=== PATIENT | male | born 1980 | race Caucasian/White ===

== ENCOUNTER 2017-01-05 12:39 | Emergency (ER) | payer MEDICAID, SELFPAY ==
[~2017-01-05] VITALS: Ht 170.2 cm; Wt 72.7 kg
[~2017-01-05 12:39] MED LIST: /LANS30GR; ACET65TA; AMLO10TA; MICR10CA PO; No Historical Meds; OXAZ15CA PO; OXAZ15CA2; TAKES NO MEDS
[2017-01-05] MEDS ORDERED: GABA-282 PO (12:53)
[2017-01-05] MEDS ORDERED: FLUO20CA19 PO (12:53)
[2017-01-05] MEDS ORDERED: LORazepam 2 MG TAB PO STA (13:50)
[2017-01-05] MEDS ORDERED: MULTIVITAMIN -ADULT INJECTION 10 ML, THIAMINE INJection 100 MG, FOLIC ACID 1 MG in NS 1... IV ONE (14:00)
[2017-01-05] MEDS ORDERED: ACETAMINOPHEN TAB 650MG DOSE (2X325MG) PO ONE (14:00)
[2017-01-05 14:02] LABS: BASO % 0.4 % (0.0-1.0); EOS # 0.1 K/mm3 (0.0-0.50); EOS % 1.7 % (0.0-3.0); LARGE UNSTAINED CELL # 0.1 K/mm3 (0.0-0.4); LARGE UNSTAINED CELL % 0.9 % (0.0-4.0); LYMPH # 0.4 K/mm3 (1.5-4.5); LYMPH % 6.1 % (24.0-44.0); MEAN CORPUSCULAR HEMOGLOBIN 30.7 pg (27.0-33.0); MEAN CORPUSCULAR HGB CONC 34.9 g/dl (32.0-36.5); MEAN CORPUSCULAR VOLUME 88.1 fl (80.0-96.0); MONO # 0.4 K/mm3 (0.0-0.8); MONO % 6.1 % (0.0-5.0); NEUTROPHILS % 84.9 % (36.0-66.0); PLATELET COUNT, AUTOMATED 122 k/mm3 (150-450); RED CELL DISTRIBUTION WIDTH 13.4 % (11.5-14.5); WHITE BLOOD COUNT 5.9 K/mm3 (4.0-10.0)
[2017-01-05 14:22] LABS: ALBUMIN/GLOBULIN RATIO 0.89 (1.00-1.93); ALKALINE PHOSPHATASE 119 U/L (45-117); ALT/SGPT 146 U/L (12-78); ANION GAP 10 MEQ/L (8-16); AST/SGOT 172 U/L (15-37); BILIRUBIN,DIRECT 0.3 MG/DL (0.0-0.2); BILIRUBIN,TOTAL 1.4 MG/DL (0.2-1.0); BLOOD UREA NITROGEN 7 MG/DL (7-18); CALCIUM LEVEL 9.4 MG/DL (8.5-10.1); CARBON DIOXIDE LEVEL 25 MEQ/L (21-32); CHLORIDE LEVEL 100 MEQ/L (98-107); CREATININE FOR GFR 0.82 MG/DL (0.70-1.30); GLOMERULAR FILTRATION RATE > 60.0 (>60); GLUCOSE, FASTING 137 MG/DL (70-105); POTASSIUM SERUM 3.4 MEQ/L (3.5-5.1); SODIUM LEVEL 135 MEQ/L (136-145); TOTAL PROTEIN 8.5 GM/DL (6.4-8.2)
[2017-01-05 14:26] LABS: METHADONE URINE NEGATIVE (NEGATIVE)
[2017-01-05] MEDS ORDERED: NS 1,000 ML IV ONE (14:45)
[2017-01-05] MEDS ORDERED: GABAPENTIN 300 MG CAP PO ONE (16:00)
[2017-01-05 18:55] VITALS: BP 171/79
== END 2017-01-05 18:56 | disposition home or self-care (01) ==
LOC: EDBD 12:39 → M ED 12:39
DX: R56.9 Unspecified convulsions (principal); F10.10 Alcohol abuse, uncomplicated; F32.9 Major depressive disorder, single episode, unspecified; F17.210 Nicotine dependence, cigarettes, uncomplicated; Z88.0 Allergy status to penicillin; Z88.1 Allergy status to other antibiotic agents
CPT/HCPCS: 36415; 80048; 80076; 80171; 80307; 81001; 83605; 85025; 99285; G0480; J3411

== ENCOUNTER 2017-01-23 12:59 | Emergency (ER) | payer SELFPAY ==
[~2017-01-23] VITALS: Ht 170.2 cm; Wt 79.5 kg
[2017-01-23 12:59] VITALS: BP 166/109
[~2017-01-23 12:59] MED LIST changes: +FLUO20CA19 PO; +GABA-282 PO
== END 2017-01-23 16:03 | disposition left against medical advice (07) ==
LOC: M ED 12:59
DX: Z76.89 Persons encountering health services in other specified circumstances (principal); Z53.21 Procedure and treatment not carried out due to patient leaving prior to being seen by health care provider

== ENCOUNTER 2017-02-03 22:27 | Inpatient (IN) | payer MEDICAID, SELFPAY ==
[~2017-02-03] VITALS: Ht 170.2 cm; Wt 81.8 kg
[2017-02-03] MEDS ORDERED: LISI10TA4 PO (22:35)
[2017-02-03] MEDS ORDERED: OXAZEPAM 15 MG CAP PO ONE (23:00)
[2017-02-03] MEDS ORDERED: LORazepam 2 MG/ML VIAL (J2060) IV STA (23:00)
[2017-02-03 23:29] LABS: BASO % 0.2 % (0.0-1.0); EOS # 0.2 K/mm3 (0.0-0.50); EOS % 2.4 % (0.0-3.0); LARGE UNSTAINED CELL # 0.1 K/mm3 (0.0-0.4); LARGE UNSTAINED CELL % 1.6 % (0.0-4.0); LYMPH # 0.6 K/mm3 (1.5-4.5); LYMPH % 8.8 % (24.0-44.0); MEAN CORPUSCULAR HGB CONC 36.3 g/dl (32.0-36.5); MEAN CORPUSCULAR VOLUME 85.6 fl (80.0-96.0); MONO # 0.8 K/mm3 (0.0-0.8); MONO % 11.5 % (0.0-5.0); NEUTROPHILS # 5.4 K/mm3 (1.8-7.7); NEUTROPHILS % 75.6 % (36.0-66.0); RED CELL DISTRIBUTION WIDTH 12.8 % (11.5-14.5); WHITE BLOOD COUNT 7.2 K/mm3 (4.0-10.0)
[2017-02-03] MEDS ORDERED: NS 1,000 ML IV SCH (23:44)
[2017-02-03] MEDS ORDERED: ONDANSETRON 4MG/2ML VIAL (J2405) IV PRN (23:45)
[2017-02-03 23:49] LABS: ADD MORPHOLOGY? YES; PLATELET COUNT, AUTOMATED 94 k/mm3 (150-450)
[2017-02-03 23:50] LABS: PLATELET CLUMPS SMALL AMT
[2017-02-03] MEDS ORDERED: THIAMINE INJection 100 MG, FOLIC ACID 1 MG, MULTIVITAMIN -ADULT INJECTION 10 ML in NS 1... IV ONE (23:53)
[2017-02-03 23:57] LABS: ALBUMIN 4.1 GM/DL (3.2-5.2); ALKALINE PHOSPHATASE 124 U/L (45-117); ALT/SGPT 153 U/L (12-78); ANION GAP 12 MEQ/L (8-16); AST/SGOT 164 U/L (15-37); BILIRUBIN,DIRECT 0.4 MG/DL (0.0-0.2); BLOOD UREA NITROGEN 13 MG/DL (7-18); CALCIUM LEVEL 9.5 MG/DL (8.5-10.1); CARBON DIOXIDE LEVEL 27 MEQ/L (21-32); CHLORIDE LEVEL 92 MEQ/L (98-107); CREATININE FOR GFR 0.73 MG/DL (0.70-1.30); GLOMERULAR FILTRATION RATE > 60.0 (>60); GLUCOSE, FASTING 118 MG/DL (70-105); POTASSIUM SERUM 3.3 MEQ/L (3.5-5.1); SODIUM LEVEL 131 MEQ/L (136-145); TOTAL PROTEIN 8.2 GM/DL (6.4-8.2)
[2017-02-04 00:18] LABS: METHADONE URINE NEGATIVE (NEGATIVE)
[2017-02-04] MEDS: THIAMINE 100 MG TAB PO SCH ×3 (00:53→20:28)
[2017-02-04] MEDS: GABAPENTIN 300 MG CAP PO SCH ×3 (00:53→20:28)
--- NOTE | 2017-02-04 01:50 | REPUSA ---
CLINICAL HISTORY: Abdominal pain. TECHNIQUE: Multiple axial, sagittal and coronal CT images were obtained through the abdomen and pelvi s without administration of oral or IV contrast material. COMMENTS: The liver is moderately enlarged with decreased attenuation without mass or defect. There is no intra or extrahepatic biliary ductal dilatation. The spleen is normal. The gallbladder is within normal li mits. The pancreas is of normal contour and attenuation characteristics. There is no evidence of adre nal mass. Bilateral perinephric fat stranding. The kidneys are otherwise normal in size, shape and configuration. No renal or ureteral calculi are i dentified. There is no hydroureter or hydronephrosis. There is no evidence for appendicitis. There is no bowel wall thickening. No evidence for small or la rge bowel obstruction. There is no evidence of abdominal ascites or lymphadenopathy. There is no evidence of intrinsic or extrinsic bladder mass. There is no pelvic ascites or lymphadeno cheri. Mild apparent thickening of the cecum and ascending colon. Images of the lung bases show no evidence of pleural or parenchymal mass. There are no pleural effusi ons. The bony structures are free of lytic or blastic lesions. Multilevel degenerative changes are seen in volving the thoracolumbar spine. Scattered calcifications are seen involving the aorta and major branches compatible with atherosclero sis. IMPRESSION: Hepatomegaly with fatty infiltration. Bilateral perinephric fat stranding. This can be secondary to abnormal renal function versus an ascen ding urinary tract infection. Correlation with creatinine level and urinalysis is helpful if needed. Mild apparent thickening of the cecum and ascending colon. Underdistention, spasm versus mild colitis . Normal appendix. Mild prostatomegaly. Mild diffuse thickening of the wall of the bladder. Underdistention, spasm, mild cystitis versus hat lining blocker reyes changes of bladder outlet obstruction. Thank you for your kind referral of this patient.
[2017-02-04] MEDS ORDERED: POTASSIUM CHLORIDE 10 MEQ SR TABLET PO ONE (05:30)
[2017-02-04] MEDS: OXAZEPAM 10 MG CAP PO SCH ×2 (06:05→11:59)
[2017-02-04] MEDS ORDERED: INFLUENZA QUADRIVALENT PF VACCINE 0.5ML SYRINGE (90686) IM SCH (07:15)
[2017-02-04 07:23] LABS: MEAN CORPUSCULAR HEMOGLOBIN 31.1 pg (27.0-33.0); MEAN CORPUSCULAR HGB CONC 35.4 g/dl (32.0-36.5); MEAN CORPUSCULAR VOLUME 87.9 fl (80.0-96.0); WHITE BLOOD COUNT 5.6 K/mm3 (4.0-10.0)
[2017-02-04] MEDS: LORazepam 2 MG/ML VIAL (J2060) IV PRN ×3 (07:36→20:28)
[2017-02-04 07:39] LABS: ALBUMIN 3.7 GM/DL (3.2-5.2); ALBUMIN/GLOBULIN RATIO 0.88 (1.00-1.93); ALKALINE PHOSPHATASE 105 U/L (45-117); ALT/SGPT 161 U/L (12-78); ANION GAP 11 MEQ/L (8-16); AST/SGOT 167 U/L (15-37); BILIRUBIN,TOTAL 1.1 MG/DL (0.2-1.0); BLOOD UREA NITROGEN 13 MG/DL (7-18); CALCIUM LEVEL 8.7 MG/DL (8.5-10.1); CARBON DIOXIDE LEVEL 27 MEQ/L (21-32); CHLORIDE LEVEL 94 MEQ/L (98-107); CREATININE FOR GFR 0.54 MG/DL (0.70-1.30); GLOMERULAR FILTRATION RATE > 60.0 (>60); GLUCOSE, FASTING 97 MG/DL (70-105); MAGNESIUM LEVEL 2.4 MG/DL (1.8-2.4); SODIUM LEVEL 132 MEQ/L (136-145); TOTAL PROTEIN 7.9 GM/DL (6.4-8.2)
[2017-02-04] MEDS: FLUoxetine 20 MG CAP PO SCH (09:38)
[2017-02-04] MEDS: MULTIVITAMINS/MINERALS THERAP 1 TAB PO SCH (09:38)
[2017-02-04] MEDS: FOLIC ACID 1 MG TAB PO SCH (09:38)
[2017-02-04] MEDS: ENOXAPARIN 40 MG/0.4 ML SYRINGE (J1650) SC SCH ×2 (09:40→09:45)
[2017-02-04 09:58] VITALS: BP 124/84
[2017-02-04 12:04] VITALS: BP 100/61
--- NOTE | 2017-02-04 14:15 | HPE ---
DATE OF ADMISSION: 02/03/2017 PRIMARY CARE PROVIDER: Dr. Munguia. Has not been seen for the first visit yet. HISTORY OF PRESENT ILLNESS: The patient is a 36-year-old male with significant alcohol abuse history with recurrent alcohol withdrawal seizures, depression, presented to [facility] on 02/03/2017 for persistent worsening of withdrawal symptoms. Patient stated at 9 o'clock in the evening time, patient felt he had a seizure. Patient started having visual hallucinations and uncontrolled extremity shaking and profuse sweating with palpitations. Denies any loss of bowel or bladder control. Denies any thumb biting. Denies any fever or chills. Patient stated his last drink was approximately three days ago. Patient has being incessantly since 18 years old, which is almost 20 years. Patient has been drinking daily for the past two weeks. At the most, patient will drink a 30 beers in a day. The patient has been having alcohol withdrawal seizure at least four to five times in the last five years. The last episode occurred in December,. At the time, patient came to [facility] emergency room, got one dose of intravenous (IV) Ativan, was discharged home. At the time, patient was shaking, sweating and a headache. ALLERGIES: 1. PENICILLIN (throat closing). 2. AUGMENTIN. 3. AZITHROMYCIN. PAST MEDICAL HISTORY: Hypertension. PAST SURGICAL HISTORY: None. HOME MEDICATIONS: - gabapentin 300 mg by mouth twice a day - fluoxetine 20 mg by mouth daily - lisinopril 10 mg by mouth daily SOCIAL HISTORY: Patient started excessive drinking since 18 years old. Recently, patient has been drinking daily and the most patient will drink is 30 beers in a single day. Patient smokes one-half pack daily. Denied recreational drug use. Patient has a history of being in skilled nursing recently for one year, just recently discharged from skilled nursing 12/08/2016, for criminal behavior. REVIEW OF SYSTEMS: GENERAL: Complains of perfuse sweating. No fever. No chills. HEENT: Complains of visual hallucinations and also headaches. CARDIOVASCULAR: Experiencing significant palpitations. No chest pain. RESPIRATORY: Intermittent cough. Some sputum production. GASTROINTESTINAL (GI): Patient had an episode of vomiting before arriving to the emergency room. No other complaints. No specific abdominal pain. MUSCULOSKELETAL: Denies any joint pain or muscle pain. NEUROLOGICAL: Denies any numbness or tingling. PHYSICAL EXAMINATION: GENERAL: Anxious, agitated, not in distress. Alert and oriented times three. HEET: Normocephalic, atraumatic. Extraocular motor grossly intact. CARDIOVASCULAR: Tachycardic with a heart rate between 110-130. RESPIRATORY: Clear to auscultation bilaterally. ABDOMEN: Mildly tender to palpation in the mid abdomen. Bowel sounds present. No rebound. EXTREMITIES: No edema. No cyanosis. NEUROLOGICAL: Uncontrolled extremity shaking, mainly on the right upper extremity. Sensation to fine touch grossly intact. Muscle strength 5/5. LABORATORY DATA: WBC 7.2. Hbg 17.4. Hct 48. Platelet 94. Na 131. K 3.3. Cl 92. CO2 27. BUN 13. Cr. 0.73. GFR>60. Total Bili 1. Direct Bili 0.4. AST 164. ALT 153. Alk Phos 124 ASSESSMENT AND PLAN: 1. Delirium tremens from alcohol withdrawal. Patient will be admitted to the intensive care unit (ICU) under inpatient status. Patient has a persistent tachycardia with elevated blood pressures. Patient has a history of delirium tremens in the past. Patient will be on Clinical Gilbert Withdrawal Assessment (CIWA) protocol. Patient started on low-acting Serax and supplemented with IV Ativan as needed. Currently, patient has mild diaphoresis, hypertension, tachycardia, agitation and also visual hallucinations. Patient will be started on a banana bag running at 80 mL per hour. Patient will be on seizure precautions. 2. Hypertension. Continue lisinopril. Patient is currently hypertensive due to delirium tremens (DTs). Patient has benzodiazepine started. 3. Depression. Continue Prozac. 4. Deep venous thrombosis (DVT) prophylaxis. On Lovenox. MTDD
[2017-02-04] MEDS: POTASSIUM CHLORIDE 10 MEQ SR TABLET PO SCH ×2 (14:46→20:36)
--- NOTE | 2017-02-04 14:48 | IPNPDOC ---
Text Note Date of Service The patient was seen on 02/04/17. NOTE Subjective: Patient is a 36 year old male with a PMHx of HTN, Seizure Hx (likely withdrawal seizures), Depression and Alcohol dependence who presented to the ER [facility] complaints of tremors, nausea, vomiting and RUQ abdominal pain. Patient noted that he had sweating and palpitations as well. He noted a period of time where he had visual hallucinations. Upon arrival to the ER he was found to have an elevated blood pressure and tachycardic. He was admitted for possible delirium tremens. Patient was seen and examined at the bedside. Currently he notes that he feels a little more calm after receiving Ativan IV. He notes that he has had difficulty getting off the benzodiazepines in the past. I have advised him that given his alcohol use history and seizure history that at this point benzodiazepines will benefit him. Objective: Vitals (See below) General: Lying in bed, no acute distress, comfortable, AAOx3 HEENT: NC, AT CVS: Tachycardia, Regular rhythm, +S1S2 Lungs: Fair air entry b/l, no appreciable wheezing / rales / rhonchi Abdomen: Soft, ND, Tenderness at RUQ Extremities: - Edema, - Calf tenderness Assessment and plan: Tremors, Nausea, Palpitations and Sweating - likely 2/2 withdrawal from alcohol , possible Delirium tremens - Presented with recent history of binge alcohol drinking, noted on Sunday was the last use of 18 beers - Physical with tachycardia, hypertension and warm skin - Blood pressure has normalized - Labs reveal mild electrolyte abnormalities, thrombocytopenia, transaminitis - CT abdomen / pelvis 02/03: hepatomegaly with fatty infiltration, bilateral perinephric stranding, mild thickening of cecum / ascending colon, diffuse thickening of wall of bladder - c/w seizure precautions - c/w Serax 30 q6h and Ativan PRN Hypokalemia - will supplement Hyponatremia, mild - will monitor for now Transaminitis - Ratio of 1:1 for AST:ALT - Possibly 2/2 alcohol, however ratio does not match - Hepatitis panel pending Thrombocytopenia - CT abdomen does not reveal any splenomegaly - Will continue to follow Alcohol dependence - c/w Banana bag x 1 bag - c/w Thiamine, Folate and Multivitamins HTN - BP remains moderately controlled - c/w Lisinopril Depression - c/w Fluoxetine Withdrawal seizure history - c/w Gabapentin DVT prophylaxis - c/w Lovenox VS,Fishbone, I+O VS, Fishbone, I+O Laboratory Tests 02/03/17 23:15 Red Blood Count 5.61, Mean Corpuscular Volume 85.6, Mean Corpuscular Hemoglobin 31.0, Mean Corpuscular Hemoglobin Concent 36.3, Red Cell Distribution Width 12.8 , Neutrophils (%) (Auto) 75.6 H, Lymphocytes (%) (Auto) 8.8 L, Monocytes (%) ( Auto) 11.5 H, Eosinophils (%) (Auto) 2.4, Basophils (%) (Auto) 0.2, Neutrophils # (Auto) 5.4, Lymphocytes # (Auto) 0.6 L, Monocytes # (Auto) 0.8, Eosinophils # (Auto) 0.2, Basophils # (Auto) 0.0 02/04/17 06:58 Red Blood Count 5.35, Mean Corpuscular Volume 87.9, Mean Corpuscular Hemoglobin 31.1, Mean Corpuscular Hemoglobin Concent 35.4, Red Cell Distribution Width 13.0 , Calcium Level 8.7, Aspartate Amino Transf (AST/SGOT) 167 H, Alanine Aminotransferase (ALT/SGPT) 161 H, Total Creatine Kinase 191, Alkaline Phosphatase 105, Total Bilirubin 1.1 H, Total Protein 7.9, Albumin 3.7 Vital Signs Date Time Temp Pulse Resp B/P (MAP) Pulse Ox O2 Delivery O2 Flow Rate FiO2 02/04/17 12:04 95 100/61 02/04/17 12:04 97.7 18 97 Room Air EZRA IRVING MD Feb 04, 2017 14:48
[2017-02-04 16:00] VITALS: BP 139/93
[2017-02-04] MEDS: OXAZEPAM 15 MG CAP PO SCH (17:06)
[2017-02-04 20:00] VITALS: BP 139/93
[2017-02-04 20:12] VITALS: BP 136/83
[2017-02-05] VITALS (7 sets, daily range): BP systolic 122–156; BP diastolic 78–96
[2017-02-05] MEDS: LORazepam 2 MG/ML VIAL (J2060) IV PRN ×3 (00:40→20:19)
[2017-02-05] MEDS: OXAZEPAM 15 MG CAP PO SCH ×2 (00:40→06:04)
[2017-02-05 05:27] LABS: MEAN CORPUSCULAR HEMOGLOBIN 31.1 pg (27.0-33.0); MEAN CORPUSCULAR HGB CONC 34.5 g/dl (32.0-36.5); MEAN CORPUSCULAR VOLUME 90.3 fl (80.0-96.0); RED CELL DISTRIBUTION WIDTH 13.2 % (11.5-14.5)
[2017-02-05 05:45] LABS: ALBUMIN 3.3 GM/DL (3.2-5.2); ALBUMIN/GLOBULIN RATIO 0.94 (1.00-1.93); ALKALINE PHOSPHATASE 119 U/L (45-117); ALT/SGPT 233 U/L (12-78); ANION GAP 9 MEQ/L (8-16); AST/SGOT 243 U/L (15-37); BILIRUBIN,TOTAL 0.7 MG/DL (0.2-1.0); BLOOD UREA NITROGEN 9 MG/DL (7-18); CALCIUM LEVEL 8.7 MG/DL (8.5-10.1); CARBON DIOXIDE LEVEL 27 MEQ/L (21-32); CHLORIDE LEVEL 102 MEQ/L (98-107); CREATININE FOR GFR 0.55 MG/DL (0.70-1.30); GLOMERULAR FILTRATION RATE > 60.0 (>60); GLUCOSE, FASTING 106 MG/DL (70-105); MAGNESIUM LEVEL 2.2 MG/DL (1.8-2.4); POTASSIUM SERUM 3.6 MEQ/L (3.5-5.1); SODIUM LEVEL 138 MEQ/L (136-145); TOTAL PROTEIN 6.8 GM/DL (6.4-8.2)
[2017-02-05 08:06] LABS: INR 0.83
[2017-02-05] MEDS: FLUoxetine 20 MG CAP PO SCH (09:14)
[2017-02-05] MEDS: ENOXAPARIN 40 MG/0.4 ML SYRINGE (J1650) SC SCH (09:14)
[2017-02-05] MEDS: MULTIVITAMINS/MINERALS THERAP 1 TAB PO SCH (09:14)
[2017-02-05] MEDS: THIAMINE 100 MG TAB PO SCH ×2 (09:14→20:18)
[2017-02-05] MEDS: FOLIC ACID 1 MG TAB PO SCH (09:14)
[2017-02-05] MEDS: GABAPENTIN 300 MG CAP PO SCH ×2 (09:14→20:18)
[2017-02-05] MEDS ORDERED: SLF 3 ML SYR IV PRN (10:45)
--- NOTE | 2017-02-05 11:53 | IPNPDOC ---
Text Note Date of Service The patient was seen on 02/05/17. NOTE Subjective: Patient is a 36 year old male with a PMHx of HTN, Seizure Hx (likely withdrawal seizures), Depression and Alcohol dependence who presented to the ER [facility] complaints of tremors, nausea, vomiting and RUQ abdominal pain. Patient noted that he had sweating and palpitations as well. He noted a period of time where he had visual hallucinations. Upon arrival to the ER he was found to have an elevated blood pressure and tachycardic. He was admitted for possible delirium tremens. Patient was seen and examined at the bedside. Patient notes that his tremors are still present, he denies chest pain, palpitations, sweating, nausea or vomiting. He notes that his abdominal pain at the RUQ is still present. Denies any constipation or diarrhea. Denies any recent blood in his stool, notes that he did experience this in the past. Objective: Vitals (See below) General: Lying in bed, no acute distress, comfortable, AAOx3 HEENT: NC, AT CVS: RRR, +S1S2 Lungs: Fair air entry b/l, no appreciable wheezing / rales / rhonchi Abdomen: Soft, ND, Tenderness at RUQ Extremities: - Edema, - Calf tenderness Assessment and plan: Tremors, Nausea, Palpitations and Sweating - likely 2/2 withdrawal from alcohol , possible Delirium tremens - Presented with recent history of binge alcohol drinking, noted on Sunday () was the last use of 18 beers - Physical initially revealed tachycardia, hypertension, warm skin - has improved - s/p electrolyte abnormalities, Persistent thrombocytopenia and transaminitis - CT abdomen / pelvis 02/03: hepatomegaly with fatty infiltration, bilateral perinephric stranding, mild thickening of cecum / ascending colon, diffuse thickening of wall of bladder - c/w seizure precautions - c/w Serax and Ativan PRN; will begin to taper Serax s/p Hypokalemia - will supplement s/p Hyponatremia, mild - will monitor for now Transaminitis - possibly 2/2 fatty liver, cirrhosis, alcoholic hepatitis - Ratio of 1:1 for AST:ALT - Possibly 2/2 alcohol, however ratio does not match - CT abdomen / pelvis 02/03: revealed hepatomegaly with fatty infiltration, - Hepatitis panel negative - Discriminate Function of 2.5 (<32); no indication for glucocorticoids at this time - c/w Fluids Thrombocytopenia - likely 2/2 alcohol - CT abdomen does not reveal any splenomegaly - No evidence of bleeding - Will continue to follow Alcohol dependence - c/w Banana bag x 1 bag - c/w Thiamine, Folate and Multivitamins HTN - BP remains moderately controlled - c/w Lisinopril; reduced dose to 5 daily Depression - c/w Fluoxetine Withdrawal seizure history - c/w Gabapentin GI prophylaxis - Started Protonix 40 IV daily - Will likely need to have PPI as an outpatient DVT prophylaxis - DC Lovenox - c/w SCD VS,Fishbone, I+O VS, Fishbone, I+O Laboratory Tests 02/05/17 04:53 Red Blood Count 4.62, Mean Corpuscular Volume 90.3, Mean Corpuscular Hemoglobin 31.1, Mean Corpuscular Hemoglobin Concent 34.5, Red Cell Distribution Width 13.2 , Calcium Level 8.7, Aspartate Amino Transf (AST/SGOT) 243 H, Alanine Aminotransferase (ALT/SGPT) 233 H, Total Creatine Kinase 122, Alkaline Phosphatase 119 H, Total Bilirubin 0.7, Total Protein 6.8, Albumin 3.3 Vital Signs Date Time Temp Pulse Resp B/P (MAP) Pulse Ox O2 Delivery O2 Flow Rate FiO2 02/05/17 08:00 98.5 82 18 122/78 (93) 98 Room Air I&O- Last 24 Hours up to 6 AM 02/05/17 06:00 Intake Total 2320 ml Output Total 1500 ml Balance 820 ml EZRA IRVING MD Feb 05, 2017 11:53
[2017-02-05] MEDS: SLF 3 ML SYR IV SCH ×2 (12:01→20:18)
[2017-02-05] MEDS: OXAZEPAM 10 MG CAP PO SCH ×2 (12:02→17:35)
[2017-02-05] MEDS: PANTOPRAZOLE 40MG INJ (PROTONIX) (C9113) IV SCH (12:06)
[2017-02-05] MEDS: LISINOPRIL 5 MG TAB PO SCH (12:08)
[2017-02-05 13:30] LABS: FREE T4 1.18 NG/DL (0.76-1.46)
--- NOTE | 2017-02-05 16:49 | REP ---
RIGHT UPPER QUADRANT ULTRASOUND: Real-time sonographic evaluation of the right upper quadrant performed. The gallbladder demonstrates no definite intraluminal calculi. The gallbladder appears somewhat contracted even though the patient states he has not eaten in between 8 and 9 hours. The gallbladder wall is mildly prominent but is likely due to its partially contracted state. There is no intrahepatic biliary dilatation. Common bile duct measuring 6 mm in diameter. Liver demonstrates mild enlargement with a length of 17.9 cm. No liver or pancreatic mass is seen. Pancreas is not optimally seen due to overlying bowel gas. Right kidney demonstrates no hydronephrosis or nephrolithiasis with normal size of 12.2 cm in length. There is no free fluid. IMPRESSION: Gallbladder appears somewhat contracted with no gallstones. Prominent gallbladder wall thickness of 5 mm is likely due to its partially contracted state. No biliary dilatation. Mild hepatomegaly. Signed by Evert Leahy MD 02/05/2017 05:12 P
[2017-02-06] VITALS (11 sets, daily range): BP systolic 130–148; BP diastolic 78–93
[2017-02-06] MEDS: OXAZEPAM 10 MG CAP PO SCH ×5 (00:48→23:14)
[2017-02-06 05:38] LABS: MEAN CORPUSCULAR HGB CONC 34.3 g/dl (32.0-36.5); MEAN CORPUSCULAR VOLUME 90.2 fl (80.0-96.0); RED CELL DISTRIBUTION WIDTH 13.1 % (11.5-14.5); WHITE BLOOD COUNT 5.2 K/mm3 (4.0-10.0)
[2017-02-06] MEDS: SLF 3 ML SYR IV SCH ×3 (05:44→20:59)
[2017-02-06 05:51] LABS: ALBUMIN 3.2 GM/DL (3.2-5.2); ALBUMIN/GLOBULIN RATIO 0.91 (1.00-1.93); ALKALINE PHOSPHATASE 136 U/L (45-117); ALT/SGPT 310 U/L (12-78); ANION GAP 9 MEQ/L (8-16); AST/SGOT 251 U/L (15-37); BILIRUBIN,TOTAL 0.4 MG/DL (0.2-1.0); BLOOD UREA NITROGEN 8 MG/DL (7-18); CALCIUM LEVEL 8.7 MG/DL (8.5-10.1); CARBON DIOXIDE LEVEL 28 MEQ/L (21-32); CHLORIDE LEVEL 100 MEQ/L (98-107); CREATININE FOR GFR 0.66 MG/DL (0.70-1.30); GLOMERULAR FILTRATION RATE > 60.0 (>60); GLUCOSE, FASTING 111 MG/DL (70-105); POTASSIUM SERUM 3.5 MEQ/L (3.5-5.1); SODIUM LEVEL 137 MEQ/L (136-145); TOTAL PROTEIN 6.7 GM/DL (6.4-8.2)
[2017-02-06] MEDS: PANTOPRAZOLE 40MG INJ (PROTONIX) (C9113) IV SCH (08:16)
[2017-02-06] MEDS: THIAMINE 100 MG TAB PO SCH (08:16)
[2017-02-06] MEDS: LISINOPRIL 5 MG TAB PO SCH (08:16)
[2017-02-06] MEDS: FOLIC ACID 1 MG TAB PO SCH (08:17)
[2017-02-06] MEDS: GABAPENTIN 300 MG CAP PO SCH ×2 (08:17→20:59)
[2017-02-06] MEDS: FLUoxetine 20 MG CAP PO SCH (08:17)
[2017-02-06] MEDS: MULTIVITAMINS/MINERALS THERAP 1 TAB PO SCH (08:17)
[2017-02-06] MEDS ORDERED: INFLUENZA QUADRIVALENT PF VACCINE 0.5ML SYRINGE (90686) IM ONE (09:00)
--- NOTE | 2017-02-06 15:07 | IPNPDOC ---
Text Note Date of Service The patient was seen on 02/06/17. NOTE Subjective: Patient states he is feeling much better. States the tremulousness has improved. No hallucinations. Objective: Vitals: (see below) General: No acute distress, laying comfortably in bed. HEENT: Moist mucous membranes. Neck: No JVD or lymphadenopathy Cardiac: RRR, No murmurs Pulm: Clear to auscultation b/l. No wheezing, rhonchi Abd: NT/ND + BS Ext: No edema or cyanosis No tremulousness. Neuro: Strength 5/5 BUE and BLE. CN 2-12 intact. Labs (see below) Images: Abd u/s 02/06/17 IMPRESSION: Gallbladder appears somewhat contracted with no gallstones. Prominent gallbladder wall thickness of 5 mm is likely due to its partially contracted state. No biliary dilatation. Mild hepatomegaly. CT Abd/pelvis 02/06/17 IMPRESSION: Hepatomegaly with fatty infiltration. Bilateral perinephric fat stranding. This can be secondary to abnormal renal function versus an ascending urinary tract infection. Correlation with creatinine level and urinalysis is helpful if needed. Mild apparent thickening of the cecum and ascending colon. Underdistention, spasm versus mild colitis. Normal appendix. Mild prostatomegaly. Mild diffuse thickening of the wall of the bladder. Underdistention, spasm, mild cystitis versus chronic changes of bladder outlet obstruction. Assessment/Plan 1. Delirium tremens- improved. Secondary to alcohol withdrawal. Patient states he's been binge drinking for a week and half, with the last 2-3 days prior to presentation. No seizure activity. Tachycardia resolved. We'll taper Serax. EEG pending. Status post banana bag. He states that the seizures he had suspected were actually visual hallucinations of circles. No loss of consciousness. No tongue trauma/urinary or fecal incontinence. 2. Transaminitis- likely secondary to alcohol as well as fatty liver. Patient states she's had elevated liver function tests after he becomes intoxicated. Hepatitis panel negative. Discriminate factor <32. 3. Thrombocytopenia- chronic secondary to alcohol no bleeding at this time. No need for transfusion this time. 4. Hypertension- controlled. Continue home meds. 5. History of depression- continue fluoxetine 6. Hypokalemia resolved 7. Hyponatremia- improved 8. History of withdrawal seizures- patient states he used to be on Depakote however stopped that 1 year ago, and has not had any seizures since then. DVT prophy: SCDs VS,Fishbone, I+O VS, Fishbone, I+O Laboratory Tests 02/06/17 05:21 Red Blood Count 4.53, Mean Corpuscular Volume 90.2, Mean Corpuscular Hemoglobin 31.0, Mean Corpuscular Hemoglobin Concent 34.3, Red Cell Distribution Width 13.1 , Calcium Level 8.7, Aspartate Amino Transf (AST/SGOT) 251 H, Alanine Aminotransferase (ALT/SGPT) 310 H, Total Creatine Kinase 88, Alkaline Phosphatase 136 H, Total Bilirubin 0.4, Total Protein 6.7, Albumin 3.2 Vital Signs Date Time Temp Pulse Resp B/P (MAP) Pulse Ox O2 Delivery O2 Flow Rate FiO2 02/06/17 12:00 97.7 85 18 138/92 (107) 98 Room Air I&O- Last 24 Hours up to 6 AM 02/06/17 05:59 Intake Total 2040 ml Output Total 2850 ml Balance -810 ml CASA INFANTE MD Feb 06, 2017 15:07
[2017-02-06] MEDS: LORazepam 2 MG/ML VIAL (J2060) IV PRN (23:19)
[2017-02-07] VITALS (7 sets, daily range): BP systolic 128–136; BP diastolic 76–88
[2017-02-07] MEDS: SLF 3 ML SYR IV SCH (05:21)
[2017-02-07] MEDS: OXAZEPAM 10 MG CAP PO SCH (05:21)
[2017-02-07 06:58] LABS: MEAN CORPUSCULAR HEMOGLOBIN 30.7 pg (27.0-33.0); MEAN CORPUSCULAR HGB CONC 33.8 g/dl (32.0-36.5); MEAN CORPUSCULAR VOLUME 90.6 fl (80.0-96.0); RED CELL DISTRIBUTION WIDTH 13.3 % (11.5-14.5); WHITE BLOOD COUNT 5.3 K/mm3 (4.0-10.0)
[2017-02-07 07:12] LABS: ALBUMIN 3.2 GM/DL (3.2-5.2); ALBUMIN/GLOBULIN RATIO 0.86 (1.00-1.93); ALKALINE PHOSPHATASE 133 U/L (45-117); ALT/SGPT 366 U/L (12-78); ANION GAP 6 MEQ/L (8-16); AST/SGOT 221 U/L (15-37); BILIRUBIN,TOTAL 0.5 MG/DL (0.2-1.0); BLOOD UREA NITROGEN 10 MG/DL (7-18); CALCIUM LEVEL 8.6 MG/DL (8.5-10.1); CARBON DIOXIDE LEVEL 29 MEQ/L (21-32); CHLORIDE LEVEL 100 MEQ/L (98-107); CREATININE FOR GFR 0.59 MG/DL (0.70-1.30); GLOMERULAR FILTRATION RATE > 60.0 (>60); GLUCOSE, FASTING 113 MG/DL (70-105); MAGNESIUM LEVEL 2.2 MG/DL (1.8-2.4); POTASSIUM SERUM 3.3 MEQ/L (3.5-5.1); SODIUM LEVEL 135 MEQ/L (136-145); TOTAL PROTEIN 6.9 GM/DL (6.4-8.2)
[2017-02-07] MEDS ORDERED: LISI-542 PO (08:29)
[2017-02-07] MEDS ORDERED: FOLI1TAB4 PO (08:29)
[2017-02-07] MEDS ORDERED: VITMTA PO (08:29)
[2017-02-07] MEDS ORDERED: THIA100TA PO (08:29)
[2017-02-07] MEDS: LISINOPRIL 5 MG TAB PO SCH (08:34)
[2017-02-07] MEDS: FOLIC ACID 1 MG TAB PO SCH (08:34)
[2017-02-07] MEDS: GABAPENTIN 300 MG CAP PO SCH (08:34)
[2017-02-07] MEDS: FLUoxetine 20 MG CAP PO SCH (08:35)
[2017-02-07] MEDS: MULTIVITAMINS/MINERALS THERAP 1 TAB PO SCH (08:35)
[2017-02-07] MEDS: LORazepam 2 MG/ML VIAL (J2060) IV PRN (08:42)
[2017-02-07] MEDS ORDERED: POTASSIUM CHLORIDE 10 MEQ SR TABLET PO ONE (09:00)
[2017-02-07] MEDS: PANTOPRAZOLE 40MG INJ (PROTONIX) (C9113) IV SCH (10:15)
--- NOTE | 2017-02-07 16:37 | DS.PDOC ---
Discharge Summary General Date of Admission Feb 03, 2017 at 23:44 Date of Discharge 02/07/17 Attending Physician: CASA INFANTE MD Discharge Summary PROCEDURES PERFORMED DURING STAY: None. ADMITTING/DISCHARGE DIAGNOSES: 1. Alcohol withdrawal, likely delirium tremens 2. Alcoholic hepatitis, transaminitis 3. Chronic thrombocytopenia 4. Hypertension 5. History of depression 6. Hypokalemia, resolved 7. Hyponatremia, resolved 8. History of history of seizures COMPLICATIONS/CHIEF COMPLAINT: Alcohol withdrawal HISTORY OF PRESENT ILLNESS/HOSPITAL COURSE: This is a 36-year-old male with a history of alcohol abuse, hypertension, depression, history of alcohol withdrawal seizures who presents with tremulousness, hallucinations, tachycardia after binging for a week and half. Patient was treated for alcohol withdrawal tolerated therapy well. He was placed on Serax/Ativan which was tapered down. Patient did not have any seizures during this hospitalization. Patient was also noted to have transaminitis. His hepatitis panel has been negative. His discriminate factor was less than 32. The patient also had an abdominal ultrasound (see below). He was also given a prescription to have his LFTs checked with results sent to his primary care physician. The patient will also be set up with a gastroenterology outpatient follow-up Although he is had a history of seizures secondary to alcohol withdrawal, he did not have any seizures during this hospitalization. He was advised to avoid driving and using heavy machinery until seen by a neurologist. He was previously on Depakote however had stopped a year ago as he has not had any seizures since. Patient is now hemodynamically stable, and with a discharged home with follow- up with primary care, gastroenterology. We will also need to follow-up with neurology. DISCHARGE MEDICATIONS: Please see below. ALLERGIES: Please see below. PHYSICAL EXAMINATION ON DISCHARGE: Vitals: (see below) General: No acute distress, laying comfortably in bed. HEENT: Moist mucous membranes. Neck: No JVD or lymphadenopathy Cardiac: RRR, No murmurs Pulm: Clear to auscultation b/l. No wheezing, rhonchi Abd: NT/ND + BS Ext: No edema or cyanosis No tremulousness. Neuro: Strength 5/5 BUE and BLE. CN 2-12 intact. LABORATORY DATA: Please see below. IMAGING: Abd u/s 02/06/17 IMPRESSION: Gallbladder appears somewhat contracted with no gallstones. Prominent gallbladder wall thickness of 5 mm is likely due to its partially contracted state. No biliary dilatation. Mild hepatomegaly. CT Abd/pelvis 02/06/17 IMPRESSION: Hepatomegaly with fatty infiltration. Bilateral perinephric fat stranding. This can be secondary to abnormal renal function versus an ascending urinary tract infection. Correlation with creatinine level and urinalysis is helpful if needed. Mild apparent thickening of the cecum and ascending colon. Underdistention, spasm versus mild colitis. Normal appendix. Mild prostatomegaly. Mild diffuse thickening of the wall of the bladder. Underdistention, spasm, mild cystitis versus chronic changes of bladder outlet obstruction. PROGNOSIS: Fair ACTIVITY: As tolerated. DIET: Low-sodium DISCHARGE PLAN/DISPOSITION: Home DISCHARGE INSTRUCTIONS: 1. Follow-up with PCP, Serology 2 Weeks. Also Follow-Up with Neurology. Avoid alcohol use. We'll need to have LFTs checked on Sunday with results to be sent to primary care physician. Avoid driving and using heavy machinery until evaluated by neurology. DISCHARGE CONDITION: Stable. TIME SPENT ON DISCHARGE: Greater than 30 minutes. Vital Signs/I&Os Vital Signs Date Time Temp Pulse Resp B/P (MAP) Pulse Ox O2 Delivery O2 Flow Rate FiO2 02/07/17 10:28 87 135/77 02/07/17 08:40 Room Air 02/07/17 08:22 97.4 18 97 I&O- Last 24 Hours up to 6 AM 02/08/17 05:59 Intake Total 480 ml Output Total 250 ml Balance 230 ml Laboratory Data Labs 24H Laboratory Tests 2 02/07/17 06:28: Anion Gap 6L, Glomerular Filtration Rate > 60.0, Blood Urea Nitrogen 10, Creatinine 0.59L, Sodium Level 135L, Potassium Level 3.3L, Chloride Level 100, Carbon Dioxide Level 29, Calcium Level 8.6, Aspartate Amino Transf (AST/SGOT) 221H, Alanine Aminotransferase (ALT/SGPT) 366H, Total Creatine Kinase 69, Alkaline Phosphatase 133H, Total Bilirubin 0.5, Total Protein 6.9, Albumin 3.2, Magnesium Level 2.2, Albumin/Globulin Ratio 0.86L 02/07/17 08:41: CBC/BMP Laboratory Tests 02/07/17 06:27 Red Blood Count 4.58, Mean Corpuscular Volume 90.6, Mean Corpuscular Hemoglobin 30.7, Mean Corpuscular Hemoglobin Concent 33.8, Red Cell Distribution Width 13.3 02/07/17 06:28 Calcium Level 8.6, Aspartate Amino Transf (AST/SGOT) 221 H, Alanine Aminotransferase (ALT/SGPT) 366 H, Total Creatine Kinase 69, Alkaline Phosphatase 133 H, Total Bilirubin 0.5, Total Protein 6.9, Albumin 3.2 Discharge Medications Scheduled Fluoxetine Hcl (Fluoxetine HCl) 20 Mg Cap, 20 MG PO DAILY, (Reported) Folic Acid (Folic Acid) 1 Mg Tab, 1 MG PO DAILY Gabapentin (Gabapentin) 300 Mg Cap, 300 MG PO BID, (Reported) Lisinopril (Lisinopril) 5 Mg Tab, 5 MG PO DAILY Multivitamins *[facility] STOCKED* (Thera M Plus *[facility] STOCKED*) 1 Tab Tab, 1 TAB PO DAILY Thiamine Hcl (Thiamine Hcl) 100 Mg Tab, 100 MG PO DAILY Allergies Coded Allergies: Penicillins (Verified Allergy, Severe, ANAPHYLAXIS, 02/03/17) Penicillins Cross Reactors (Verified Allergy, Severe, ANAPHYLAXIS, 02/03/17 ) Amoxicillin (Verified Allergy, Intermediate, unknown, 02/03/17) Clavulanic Acid (Verified Allergy, Intermediate, unknown, 02/03/17) CASA INFANTE MD Feb 07, 2017 16:37
--- NOTE | 2017-02-08 11:48 | EEG ---
DATE OF PROCEDURE: 02/06/2017 REFERRING PHYSICIAN: Dr. Liban Clark DIAGNOSIS: Seizures. EEG# - [id number] HISTORY: The patient is a 36-year-old man with a history of alcohol abuse and history of seizures. This EEG was done to rule out epileptic potential. He is currently taking Prozac, gabapentin, oxazepam, thiamine, multivitamin, folic acid. TECHNICAL DESCRIPTION: This digital EEG was recorded by 21 scalp, ear and two EKG electrodes and was reviewed in bipolar and referential montages following reformatting in 10-20 international electrode placement system. INTERPRETATION: Patient was noted to be in awake and drowsy states during this EEG. Resting awake background rhythm consistent of well-formed posterior dominant over the anterior/posterior grading comprising of 10 Hz alpha activity measuring 15-40 microvolts in amplitude, which was symmetric and reactive to eye opening. Attenuation of posterior dominant was seen during transition into drowsiness. Anteriorly low voltage and mixed frequency of activity was noted. Stage I and II sleep were reviewed and were symmetric bilaterally. Hyperventilation elicited mild beta slowing background rhythm. Photic stimulation remained unremarkable. EKG revealed normal sinus rhythm. No focal, lateralizing or epileptiform abnormalities were seen. CONCLUSIONS: This EEG in awake, drowsy states, stage I and II sleep is within normal limits.
== END 2017-02-07 11:50 | disposition home or self-care (01) | DRG 775 ==
LOC: M ED 22:27 → M ED INP 23:44 → M PCU 02-04 15:08 → M MSPAV 02-06 16:26
PROVIDERS: ADMIT Internal Medicine; ATTEND Internal Medicine
DX: F10.221 Alcohol dependence with intoxication delirium (principal); F10.239 Alcohol dependence with withdrawal, unspecified; K70.10 Alcoholic hepatitis without ascites; I10 Essential (primary) hypertension; E87.1 Hypo-osmolality and hyponatremia; E87.6 Hypokalemia; F32.9 Major depressive disorder, single episode, unspecified; Z88.0 Allergy status to penicillin; Z88.1 Allergy status to other antibiotic agents; Z79.899 Other long term (current) drug therapy; F17.210 Nicotine dependence, cigarettes, uncomplicated

== ENCOUNTER → 2017-02-09 | Outpatient (REF) | payer MEDICAID ==
[~2017-02-09] MED LIST changes: +CEFD1CAP8 PO; +FOLI1TAB4 PO; +LISI-542 PO; +LISI10TA4 PO; +THIA100TA PO; +VITMTA PO; +ZITHTAB PO
[2017-02-09 16:13] LABS: ALBUMIN 3.7 GM/DL (3.2-5.2); ALBUMIN/GLOBULIN RATIO 1.09 (1.00-1.93); ALKALINE PHOSPHATASE 99 U/L (45-117); ALT/SGPT 467 U/L (12-78); ANION GAP 10 MEQ/L (8-16); AST/SGOT 212 U/L (15-37); BILIRUBIN,TOTAL 0.4 MG/DL (0.2-1.0); BLOOD UREA NITROGEN 10 MG/DL (7-18); CALCIUM LEVEL 9.2 MG/DL (8.5-10.1); CARBON DIOXIDE LEVEL 25 MEQ/L (21-32); CHLORIDE LEVEL 103 MEQ/L (98-107); GLUCOSE, FASTING 173 MG/DL (70-105); POTASSIUM SERUM 3.4 MEQ/L (3.5-5.1); SODIUM LEVEL 138 MEQ/L (136-145); TOTAL PROTEIN 7.1 GM/DL (6.4-8.2)
[2017-02-09 16:15] LABS: GLOMERULAR FILTRATION RATE > 60.0 (>60)
== END ==
LOC: M LABDRAW1 15:50
PROVIDERS: ATTEND Internal Medicine
DX: R74.0 Nonspecific elevation of levels of transaminase and lactic acid dehydrogenase [LDH] (principal)

== ENCOUNTER 2017-02-24 00:21 | Emergency (ER) | payer MEDICAID, OTHER ==
[~2017-02-24] VITALS: Ht 170.2 cm; Wt 72.7 kg
[~2017-02-24 00:21] MED LIST changes: -CEFD1CAP8 PO; -ZITHTAB PO
[2017-02-24] MEDS ORDERED: CEFD1CAP8 PO (00:33)
[2017-02-24] MEDS ORDERED: predniSONE 20 MG TAB PO ONE (02:00)
[2017-02-24] MEDS ORDERED: ZITHTAB PO (02:02)
[2017-02-24 02:23] VITALS: BP 127/90
== END 2017-02-24 02:23 | disposition home or self-care (01) ==
LOC: M ED 00:21
DX: R21 Rash and other nonspecific skin eruption (principal); T36.1X5A Adverse effect of cephalosporins and other beta-lactam antibiotics, initial encounter; Y92.9 Unspecified place or not applicable; Y93.9 Activity, unspecified; F32.9 Major depressive disorder, single episode, unspecified; Z79.899 Other long term (current) drug therapy; Z88.0 Allergy status to penicillin

== ENCOUNTER 2017-02-27 23:00 | Emergency (ER) | payer OTHER ==
[~2017-02-27] VITALS: Ht 170.2 cm; Wt 82.6 kg
[~2017-02-27 23:00] MED LIST changes: +CEFD1CAP8 PO; +ZITHTAB PO
[2017-02-27 23:01] VITALS: BP 154/92
== END 2017-02-27 23:23 | disposition left against medical advice (07) ==
LOC: M ED 23:00
DX: R11.10 Vomiting, unspecified (principal); Z53.21 Procedure and treatment not carried out due to patient leaving prior to being seen by health care provider

== ENCOUNTER 2017-04-15 05:50 | Emergency (ER) | payer OTHER ==
[~2017-04-15] VITALS: Ht 170.2 cm; Wt 86.4 kg
[2017-04-15 05:51] VITALS: BP 143/94
== END 2017-04-15 06:27 | disposition left against medical advice (07) ==
LOC: M ED 05:50
DX: R07.0 Pain in throat (principal); R11.10 Vomiting, unspecified; Z53.21 Procedure and treatment not carried out due to patient leaving prior to being seen by health care provider

== ENCOUNTER → 2017-04-17 | Outpatient (REF) | payer OTHER | LOC: M LAB REF 16:21 | PROVIDERS: ATTEND Physician Assistant | DX: J02.9 Acute pharyngitis, unspecified (principal) ==

== ENCOUNTER 2017-04-22 02:52 | Emergency (ER) | payer OTHER ==
[~2017-04-22] VITALS: Ht 170.2 cm; Wt 86.4 kg
[2017-04-22 02:52] VITALS: BP 161/98
[2017-04-22] MEDS ORDERED: LISI10TA4 PO (03:03)
== END 2017-04-22 04:30 | disposition left against medical advice (07) ==
LOC: M ED 02:52
DX: R07.0 Pain in throat (principal); Z53.21 Procedure and treatment not carried out due to patient leaving prior to being seen by health care provider

== ENCOUNTER → 2017-04-25 | Outpatient (CLI) | payer OTHER ==
--- NOTE | 2017-04-26 08:52 | REP ---
COMPLETE ABDOMINAL ULTRASOUND: CLINICAL: Abdominal pain with history of alcoholism. TECHNIQUE: Transabdominal pelvic ultrasound using curved array transducer. FINDINGS: The liver demonstrates hepatosteatosis and hepatomegaly measuring 19.5 cm i n craniocaudal length without focal hepatic lesion identified. The visualized portions of the pancreas are unremarkable but limited due to interposed bowel gas. The spleen is normal in size and echogenicity without focal splenic lesion and measures 10.8 x 4.2 x 8.7 cm. The gallbladder is normal and without gallstones, wall thickening or pericholecystic fluid. No biliary ductal dilatation is appreciated and the common bile duct measures 3.7 mm in diameter. Bilateral kidneys are normal in reniform shape and echogenicity without hydronephrosis, nephrolithiasis, cystic or mass lesion. Right kidney measures 13.6 x 5.7 x 5.5 cm. The left kidney measures 12.9 x 5.9 x 5.8 cm. Abdominal aorta is normal in appearance and caliber measuring 2.2 cm maximal diameter. No ascites. IMPRESSION: Hepatosteatosis and hepatomegaly. Otherwise, normal complete abdominal ultrasound. Signed by Sher Kurtz MD 04/27/2017 08:04 A
== END ==
LOC: M RAD 09:06
PROVIDERS: ATTEND Family Medicine
DX: K76.0 Fatty (change of) liver, not elsewhere classified (principal)

== ENCOUNTER 2017-07-29 12:22 | Emergency (ER) | payer OTHER ==
[2017-07-29] MEDS: PERCOCET 5MG/325MG TAB PO (14:20)
== END 2017-07-29 14:38 | disposition home or self-care (01) ==
LOC: M ED 12:22
DX: S20.221A Contusion of right back wall of thorax, initial encounter (principal); W10.9XXA Fall (on) (from) unspecified stairs and steps, initial encounter; Y92.89 Other specified places as the place of occurrence of the external cause; I10 Essential (primary) hypertension; K21.9 Gastro-esophageal reflux disease without esophagitis; F33.9 Major depressive disorder, recurrent, unspecified; R56.9 Unspecified convulsions; Z79.899 Other long term (current) drug therapy; Z88.0 Allergy status to penicillin; Z88.8 Allergy status to other drugs, medicaments and biological substances
CPT/HCPCS: 99284

== ENCOUNTER 2017-08-02 22:00 | Emergency (ER) | payer OTHER ==
[2017-08-02] MEDS: PERCOCET 5MG/325MG TAB PO (22:48)
[2017-08-02] MEDS: LIDOCAINE 1% MDV 20ML VIAL SC (23:54)
[2017-08-03] MEDS ORDERED: PERCOCET 5MG/325MG TAB PO ×2 (00:15)
[2017-08-03] MEDS: PERCOCET 5MG/325MG TAB PO (00:20)
== END 2017-08-03 00:30 | disposition home or self-care (01) ==
LOC: M ED 08-03 00:30
DX: S51.812A Laceration without foreign body of left forearm, initial encounter (principal); W26.0XXA Contact with knife, initial encounter; Y92.009 Unspecified place in unspecified non-institutional (private) residence as the place of occurrence of the external cause; Y93.G1 Activity, food preparation and clean up; F33.9 Major depressive disorder, recurrent, unspecified; Z79.899 Other long term (current) drug therapy; Z88.0 Allergy status to penicillin; Z88.8 Allergy status to other drugs, medicaments and biological substances
CPT/HCPCS: 12004

== ENCOUNTER 2017-08-07 14:24 | Emergency (ER) | payer OTHER | END 2017-08-07 16:21 | disposition home or self-care (01) | LOC: M ED 14:24 | DX: M79.631 Pain in right forearm (principal); I10 Essential (primary) hypertension; K21.9 Gastro-esophageal reflux disease without esophagitis; K27.9 Peptic ulcer, site unspecified, unspecified as acute or chronic, without hemorrhage or perforation; F17.200 Nicotine dependence, unspecified, uncomplicated; Z88.0 Allergy status to penicillin; Z88.8 Allergy status to other drugs, medicaments and biological substances; Z79.899 Other long term (current) drug therapy; Z79.2 Long term (current) use of antibiotics | CPT/HCPCS: 99283 ==

== ENCOUNTER 2017-08-11 09:10 | Emergency (ER) | payer OTHER | END 2017-08-11 09:39 | disposition home or self-care (01) | LOC: M ED 09:10 | DX: S51.811D Laceration without foreign body of right forearm, subsequent encounter (principal); X58.XXXD Exposure to other specified factors, subsequent encounter; Y92.9 Unspecified place or not applicable; Y93.9 Activity, unspecified; F17.200 Nicotine dependence, unspecified, uncomplicated; G40.501 Epileptic seizures related to external causes, not intractable, with status epilepticus; I10 Essential (primary) hypertension; K21.9 Gastro-esophageal reflux disease without esophagitis; E34.9 Endocrine disorder, unspecified; K76.9 Liver disease, unspecified; F41.9 Anxiety disorder, unspecified; F32.9 Major depressive disorder, single episode, unspecified; Z79.899 Other long term (current) drug therapy; Z88.0 Allergy status to penicillin; Z88.6 Allergy status to analgesic agent | CPT/HCPCS: 99282 ==

== ENCOUNTER → 2017-09-18 | Outpatient (REF) | payer OTHER ==
[2017-09-18 12:45] LABS: BASO % 0.5 % (0.0-1.0); EOS # 0.3 10^3/uL (0.0-0.50); EOS % 3.2 % (0.0-3.0); HEMATOCRIT 48.1 % (42.0-52.0); HEMOGLOBIN 15.9 g/dl (13.5-17.5); IMMATURE GRANULOCYTE % 0.4 % (0-3.0); LYMPH # 1.2 10^3/uL (1.5-4.5); LYMPH % 15.2 % (24.0-44.0); MEAN CORPUSCULAR HEMOGLOBIN 29.9 pg (27.0-33.0); MEAN CORPUSCULAR HGB CONC 33.1 g/dl (32.0-36.5); MEAN CORPUSCULAR VOLUME 90.4 fl (80.0-96.0); MONO # 0.6 10^3/uL (0.0-0.8); MONO % 8.1 % (0.0-5.0); NEUTROPHILS # 5.7 10^3/uL (1.8-7.7); NEUTROPHILS % 72.6 % (36.0-66.0); PLATELET COUNT, AUTOMATED 137 10^3/uL (150-450); RED BLOOD COUNT 5.32 10^6/uL (4.30-6.10); RED CELL DISTRIBUTION WIDTH 13.1 % (11.5-14.5); WHITE BLOOD COUNT 7.8 10^3/uL (4.0-10.0)
[2017-09-18 12:58] LABS: ALBUMIN/GLOBULIN RATIO 1.05 (1.00-1.93); ALKALINE PHOSPHATASE 110 U/L (45-117); ALT/SGPT 148 U/L (12-78); ANION GAP 8 MEQ/L (8-16); AST/SGOT 108 U/L (7-37); BILIRUBIN,TOTAL 0.5 MG/DL (0.2-1.0); BLOOD UREA NITROGEN 10 MG/DL (7-18); CALCIUM LEVEL 8.4 MG/DL (8.5-10.1); CARBON DIOXIDE LEVEL 27 MEQ/L (21-32); CHLORIDE LEVEL 104 MEQ/L (98-107); CREATININE FOR GFR 0.81 MG/DL (0.70-1.30); GLOMERULAR FILTRATION RATE > 60.0 (>60); GLUCOSE, FASTING 99 MG/DL (70-100); POTASSIUM SERUM 3.7 MEQ/L (3.5-5.1); SODIUM LEVEL 139 MEQ/L (136-145); TOTAL PROTEIN 7.8 GM/DL (6.4-8.2)
[2017-09-18 13:08] LABS: ESTIMATED AVERAGE GLUCOSE 114 MG/DL (60-110); HEMOGLOBIN A1c 5.6 %
== END ==
LOC: M LAB REF 12:12
DX: E66.09 Other obesity due to excess calories (principal); I10 Essential (primary) hypertension
CPT/HCPCS: 84443

== ENCOUNTER → 2018-01-09 | Outpatient (CLI) | payer OTHER | LOC: M WUC 19:09 | DX: M79.671 Pain in right foot (principal) | CPT/HCPCS: 73630 ==

== ENCOUNTER 2018-04-19 20:33 | Emergency (ER) | payer OTHER ==
[2018-04-19 21:20] LABS: HEMATOCRIT 51.5 % (42.0-52.0); HEMOGLOBIN 16.9 g/dl (13.5-17.5); MEAN CORPUSCULAR HEMOGLOBIN 30.1 pg (27.0-33.0); MEAN CORPUSCULAR HGB CONC 32.8 g/dl (32.0-36.5); MEAN CORPUSCULAR VOLUME 91.6 fl (80.0-96.0); PLATELET COUNT, AUTOMATED 219 10^3/uL (150-450); RED BLOOD COUNT 5.62 10^6/uL (4.30-6.10); WHITE BLOOD COUNT 8.5 10^3/uL (4.0-10.0)
[2018-04-19 21:58] LABS: ACETAMINOPHEN LEVEL < 2.0 UG/ML (10.0-30.0); ALBUMIN 3.8 GM/DL (3.2-5.2); ALBUMIN/GLOBULIN RATIO 0.83 (1.00-1.93); ALKALINE PHOSPHATASE 168 U/L (45-117); ALT/SGPT 70 U/L (12-78); ANION GAP 9 MEQ/L (8-16); AST/SGOT 97 U/L (7-37); BILIRUBIN,DIRECT 0.1 MG/DL (0.0-0.2); BILIRUBIN,TOTAL 0.3 MG/DL (0.2-1.0); BLOOD UREA NITROGEN 4 MG/DL (7-18); CALCIUM LEVEL 8.6 MG/DL (8.5-10.1); CARBON DIOXIDE LEVEL 27 MEQ/L (21-32); CHLORIDE LEVEL 107 MEQ/L (98-107); CREATININE FOR GFR 0.77 MG/DL (0.70-1.30); ETHYL ALCOHOL (ETHANOL) 0.361 % (0.000-0.010); GLOMERULAR FILTRATION RATE > 60.0 (>60); GLUCOSE, FASTING 117 MG/DL (70-100); POTASSIUM SERUM 4.1 MEQ/L (3.5-5.1); SALICYLATE LEVEL 3.6 MG/DL (5.0-30.0); SODIUM LEVEL 143 MEQ/L (136-145); TOTAL PROTEIN 8.4 GM/DL (6.4-8.2)
[2018-04-19] MEDS: NS 1,000 ML IV (23:45)
[2018-04-23 00:30] LABS: LEVETIRACETAM (KEPPRA) None Detected ug/mL (10.0-40.0)
== END 2018-04-20 05:30 | disposition left against medical advice (07) ==
LOC: M ED 04-20 05:30
DX: Z53.29 Procedure and treatment not carried out because of patient's decision for other reasons (principal)

== ENCOUNTER 2018-06-25 15:54 | Emergency (ER) | payer OTHER ==
[~2018-06-25] VITALS: Ht 170.2 cm; Wt 72.7 kg
[~2018-06-25 15:54] MED LIST changes: +COLA100C5 PO; +CYMB60CA3 PO; +DOXY-350 PO; +FOLI1TAB11 PO; -FOLI1TAB4 PO; -GABA-282 PO; +GABA-843 PO; +GABA-845 PO; +KEPP1TAB PO; +NORCOTAB PO; +PERC5TAB12 PO; +PRED20TA PO; +ULTR50TA8 PO
[2018-06-25 15:55] VITALS: BP 140/86
== END 2018-06-25 18:08 | disposition left against medical advice (07) ==
LOC: M ED 15:54
DX: Z53.29 Procedure and treatment not carried out because of patient's decision for other reasons (principal)

== ENCOUNTER 2018-08-05 21:10 | Emergency (ER) | payer OTHER ==
[~2018-08-05] VITALS: Ht 170.2 cm; Wt 72.7 kg
[2018-08-05 21:11] VITALS: BP 125/80
[2018-08-05] MEDS ORDERED: LISI-672 (21:28)
[2018-08-05] MEDS ORDERED: DULO1CAP3 (21:28)
[2018-08-06] MEDS ORDERED: DULO1CAP3 PO (07:49)
[2018-08-06] MEDS ORDERED: GABA-845 (07:49)
[2018-08-06] MEDS ORDERED: ZITHTAB PO (10:27)
== END 2018-08-05 22:55 | disposition left against medical advice (07) ==
LOC: M ED 21:10
DX: H92.01 Otalgia, right ear (principal); R10.9 Unspecified abdominal pain; Z53.21 Procedure and treatment not carried out due to patient leaving prior to being seen by health care provider

== ENCOUNTER 2018-08-06 07:44 | Emergency (ER) | payer OTHER ==
[~2018-08-06] VITALS: Ht 170.2 cm; Wt 72.7 kg
[~2018-08-06 07:44] MED LIST changes: +DULO1CAP3; +LISI-672
[2018-08-06] MEDS ORDERED: GABA-845 (07:49)
[2018-08-06] MEDS ORDERED: DULO1CAP3 PO (07:49)
[2018-08-06 08:48] LABS: BASO # 0.1 10^3/uL (0.0-0.2); BASO % 0.8 % (0.0-1.0); EOS # 0.3 10^3/uL (0.0-0.50); HEMATOCRIT 46.8 % (42.0-52.0); HEMOGLOBIN 15.6 g/dl (13.5-17.5); LYMPH # 2.3 10^3/uL (1.5-4.5); MEAN CORPUSCULAR HEMOGLOBIN 30.1 pg (27.0-33.0); MEAN CORPUSCULAR HGB CONC 33.3 g/dl (32.0-36.5); MEAN CORPUSCULAR VOLUME 90.2 fl (80.0-96.0); MONO # 0.7 10^3/uL (0.0-0.8); MONO % 8.8 % (0.0-5.0); NEUTROPHILS # 4.9 10^3/uL (1.8-7.7); PLATELET COUNT, AUTOMATED 232 10^3/uL (150-450); RED BLOOD COUNT 5.19 10^6/uL (4.30-6.10); WHITE BLOOD COUNT 8.3 10^3/uL (4.0-10.0)
[2018-08-06 09:11] LABS: AMPHETAMINES LEVEL URINE NEGATIVE (NEGATIVE); BARBITURATES URINE NEGATIVE (NEGATIVE); BENZODIAZEPINES URINE NEGATIVE (NEGATIVE); CANNABINOIDS URINE NEGATIVE (NEGATIVE); COCAINE METABOLITE URINE NEGATIVE (NEGATIVE); METHADONE URINE NEGATIVE (NEGATIVE); OPIATES URINE NEGATIVE (NEGATIVE); PHENCYCLIDINE URINE NEGATIVE (NEGATIVE)
[2018-08-06 09:14] LABS: BLOOD UREA NITROGEN 6 MG/DL (7-18); CARBON DIOXIDE LEVEL 27 MEQ/L (21-32); CHLORIDE LEVEL 105 MEQ/L (98-107); CREATININE FOR GFR 0.76 MG/DL (0.70-1.30); ETHYL ALCOHOL (ETHANOL) 0.272 % (0.000-0.010); GLOMERULAR FILTRATION RATE > 60.0 (>60); GLUCOSE, FASTING 93 MG/DL (70-100); LIPASE 339 U/L (73-393); POTASSIUM SERUM 3.8 MEQ/L (3.5-5.1); SODIUM LEVEL 140 MEQ/L (136-145)
[2018-08-06] MEDS ORDERED: ACETAMINOPHEN TAB 650MG DOSE (2X325MG) PO ONE (09:15)
--- NOTE | 2018-08-06 09:48 | REP ---
CT abdomen and pelvis without IV or oral contrast: History: Right flank pain. Comparison study: February 04, 2017. Findings: Preliminary digital lion trainer radiograph is unremarkable. There is moderate diffuse fatty infiltration of the liver. No focal splenic lesion is seen. No adrenal lesion is observed. The pancreas is unremarkable. The gallbladder is distended. No evidence of wall thickening or stone by CT criteria. There is no evidence of hydronephrosis, urinary tract calculus, or mass. A normal appendix is seen. Small and large intestinal bowel loops are unremarkable except for a few left colonic diverticular changes. Urinary bladder and prostate are unremarkable. No abdominal wall defect is seen. No significant bony abnormality. Impression: Moderate diffuse fatty infiltration of the liver. Early left colonic diverticulosis. Mildly dilated gallbladder. Otherwise negative CT abdomen and pelvis. Electronically Signed by Rashid Serrato MD 08/06/2018 07:39 P
[2018-08-06] MEDS ORDERED: ZITHTAB PO (10:27)
[2018-08-06 10:38] LABS: ALBUMIN 4.3 GM/DL (3.2-5.2); ALT/SGPT 51 U/L (12-78); BILIRUBIN,DIRECT 0.1 MG/DL (0.0-0.2); BILIRUBIN,TOTAL 0.3 MG/DL (0.2-1.0)
[2018-08-06 10:49] VITALS: BP 119/67
== END 2018-08-06 10:58 | disposition home or self-care (01) ==
LOC: M ED 07:44
DX: K80.50 Calculus of bile duct without cholangitis or cholecystitis without obstruction (principal); H66.91 Otitis media, unspecified, right ear; F10.120 Alcohol abuse with intoxication, uncomplicated; K76.0 Fatty (change of) liver, not elsewhere classified; K57.30 Diverticulosis of large intestine without perforation or abscess without bleeding; K83.8 Other specified diseases of biliary tract; I10 Essential (primary) hypertension; G40.909 Epilepsy, unspecified, not intractable, without status epilepticus; F17.210 Nicotine dependence, cigarettes, uncomplicated; Z82.49 Family history of ischemic heart disease and other diseases of the circulatory system; Z84.2 Family history of other diseases of the genitourinary system; Z88.0 Allergy status to penicillin; Z88.8 Allergy status to other drugs, medicaments and biological substances; Z79.899 Other long term (current) drug therapy
CPT/HCPCS: 36415; 74176; 80048; 80076; 80307; 81001; 83690; 85025; 99283; G0480

== ENCOUNTER → 2018-10-11 | Outpatient (CLI) | payer MEDICAID ==
[~2018-10-11] MED LIST changes: +DULO1CAP3 PO; +GABA-845; +HYDR-3715 PO; -NORCOTAB PO
== END ==
LOC: M OUTALCOH 08:13
PROVIDERS: ATTEND Psychiatry & Neurology Psychiatry
DX: Z13.39 Encounter for screening examination for other mental health and behavioral disorders (principal); F10.10 Alcohol abuse, uncomplicated

== ENCOUNTER 2018-11-03 21:06 | Emergency (ER) | payer MEDICAID, OTHER ==
[~2018-11-03] VITALS: Ht 170.2 cm; Wt 71.4 kg
[2018-11-03] MEDS ORDERED: LEXA1TAB PO (21:27)
[2018-11-03] MEDS ORDERED: ACETAMINOPHEN 325 MG TAB PO ONE (22:45)
[2018-11-03] MEDS ORDERED: CLINDAMYCIN 150 MG CAP PO ONE (22:45)
[2018-11-03] MEDS ORDERED: CLEO300C2 PO (22:46)
[2018-11-03 22:47] VITALS: BP 147/92
== END 2018-11-03 22:53 | disposition home or self-care (01) ==
LOC: M ED 21:06
DX: K02.9 Dental caries, unspecified (principal); H92.20 Otorrhagia, unspecified ear; Z72.0 Tobacco use; Z79.899 Other long term (current) drug therapy; Z88.0 Allergy status to penicillin; Z88.6 Allergy status to analgesic agent; Z88.8 Allergy status to other drugs, medicaments and biological substances

== ENCOUNTER 2018-11-13 09:00 | Outpatient (RCR) | payer MEDICAID ==
[~2018-11-13 09:00] MED LIST changes: +CLEO300C2 PO; +LEXA1TAB PO
== END 2018-11-17 ==
LOC: M OUTALCOH 09:00
PROVIDERS: ATTEND Psychiatry & Neurology Psychiatry
DX: F10.10 Alcohol abuse, uncomplicated (principal); F17.200 Nicotine dependence, unspecified, uncomplicated

== ENCOUNTER → 2018-12-18 | Outpatient (RCR) | payer MEDICAID ==
[~2018-12-18] MED LIST changes: -DULO1CAP3; -DULO1CAP3 PO; +DULO1CAP6; +DULO1CAP6 PO
== END ==
LOC: M OUTALCOH 11-27 08:51
PROVIDERS: ATTEND Psychiatry & Neurology Psychiatry
DX: F10.10 Alcohol abuse, uncomplicated (principal); F17.200 Nicotine dependence, unspecified, uncomplicated

== ENCOUNTER → 2018-12-27 | Outpatient (CLI) | payer MEDICAID ==
[2018-12-27 09:25] LABS: APPEARANCE, URINE CLEAR (CLEAR); BACTERIA, URINE AUTO NEGATIVE (NEGATIVE); BILIRUBIN, URINE AUTO NEGATIVE (NEGATIVE); BLOOD, URINE BLOOD NEGATIVE (NEGATIVE); COLOR, URINE YELLOW (YELLOW); GLUCOSE, URINE (UA) AUTO NEGATIVE (NEGATIVE); KETONE, URINE AUTO TRACE mg/dL (NEGATIVE); LEUKOCYTE ESTERASE, URINE AUTO NEGATIVE (NEGATIVE); MUCUS, URINE SMALL (NEGATIVE); NITRITE, URINE AUTO NEGATIVE (NEGATIVE); PROTEIN, URINE AUTO NEGATIVE (NEGATIVE); RBC, URINE AUTO 1 /HPF (0-3); SQUAMOUS EPITHELIAL CELL UR AU 0 /HPF (0-6); UROBILINOGEN, URINE AUTO 0.2 mg/dL (0.0-2.0); WBC, URINE AUTO 1 /HPF (0-3)
[2018-12-27 09:28] LABS: BASO # 0.1 10^3/uL (0.0-0.2); EOS # 0.3 10^3/uL (0.0-0.50); EOS % 2.8 % (0.0-3.0); HEMATOCRIT 48.7 % (42.0-52.0); LYMPH # 1.4 10^3/uL (1.5-4.5); MEAN CORPUSCULAR HEMOGLOBIN 30.1 pg (27.0-33.0); MEAN CORPUSCULAR HGB CONC 32.9 g/dl (32.0-36.5); MEAN CORPUSCULAR VOLUME 91.7 fl (80.0-96.0); MONO # 0.8 10^3/uL (0.0-0.8); MONO % 8.5 % (0.0-5.0); NEUTROPHILS # 6.7 10^3/uL (1.8-7.7); NEUTROPHILS % 72.4 % (36.0-66.0); PLATELET COUNT, AUTOMATED 165 10^3/uL (150-450); RED BLOOD COUNT 5.31 10^6/uL (4.30-6.10); WHITE BLOOD COUNT 9.3 10^3/uL (4.0-10.0)
[2018-12-27 09:46] LABS: HEMOGLOBIN A1c 5.9 %
[2018-12-27 09:58] LABS: ALBUMIN 4.2 GM/DL (3.2-5.2); ALT/SGPT 74 U/L (12-78); BILIRUBIN,TOTAL 0.6 MG/DL (0.2-1.0); BLOOD UREA NITROGEN 13 MG/DL (7-18); CALCIUM LEVEL 9.6 MG/DL (8.5-10.1); CARBON DIOXIDE LEVEL 30 MEQ/L (21-32); CHLORIDE LEVEL 102 MEQ/L (98-107); CHOLESTEROL LEVEL 143 MG/DL (<200); FREE T4 1.05 NG/DL (0.76-1.46); GLOMERULAR FILTRATION RATE > 60.0 (>60); GLUCOSE, FASTING 89 MG/DL (70-100); HDL CHOLESTEROL 52 MG/DL (>40); LDL CHOLESTEROL 73 MG/DL (<100); NON-HDL-C 91 MG/DL; POTASSIUM SERUM 4.4 MEQ/L (3.5-5.1); SODIUM LEVEL 136 MEQ/L (136-145); TOTAL PROTEIN 7.9 GM/DL (6.4-8.2); TRIGLYCERIDES LEVEL 92 MG/DL (<150)
[2018-12-27 13:25] LABS: TOTAL 25(OH) VITAMIN D 22.3 NG/ML (30.0-100.0)
[2018-12-29 00:06] LABS: Lyme Disease IgG/IgM Antibodie <0.91 ISR (0.00-0.90); Lyme Disease IgM Ab Quantitati <0.80 index (0.00-0.79)
== END ==
LOC: M LAB 08:25
PROVIDERS: ATTEND Family Medicine
DX: Z13.228 Encounter for screening for other metabolic disorders (principal)

== ENCOUNTER 2019-01-01 15:53 | Emergency (ER) | payer MEDICAID, OTHER ==
[~2019-01-01] VITALS: Ht 170.2 cm; Wt 83.2 kg
[2019-01-01 15:53] VITALS: BP 137/62
[2019-01-01] MEDS ORDERED: LIDOCAINE 1% MDV 20ML VIAL IM ONE (18:00)
[2019-01-01] MEDS ORDERED: BACITRACIN OINT 30GM TOP ONE (18:45)
== END 2019-01-01 18:51 | disposition home or self-care (01) ==
LOC: M ED 15:53
DX: S61.412A Laceration without foreign body of left hand, initial encounter (principal); W26.8XXA Contact with other sharp object(s), not elsewhere classified, initial encounter; Y92.098 Other place in other non-institutional residence as the place of occurrence of the external cause; I10 Essential (primary) hypertension; K21.9 Gastro-esophageal reflux disease without esophagitis; R56.9 Unspecified convulsions; F41.9 Anxiety disorder, unspecified; F32.9 Major depressive disorder, single episode, unspecified; K76.9 Liver disease, unspecified; F17.200 Nicotine dependence, unspecified, uncomplicated; Z88.0 Allergy status to penicillin; Z88.8 Allergy status to other drugs, medicaments and biological substances; Z88.6 Allergy status to analgesic agent; Z79.899 Other long term (current) drug therapy

== ENCOUNTER 2019-01-15 12:00 | Outpatient (RCR) | payer MEDICAID | END 2019-01-18 | LOC: M OUTALCOH 12:00 | PROVIDERS: ATTEND Psychiatry & Neurology Psychiatry | DX: F10.10 Alcohol abuse, uncomplicated (principal); F17.200 Nicotine dependence, unspecified, uncomplicated ==

== ENCOUNTER 2019-02-22 12:45 | Emergency (ER) | payer OTHER ==
[~2019-02-22] VITALS: Ht 170.2 cm; Wt 81.8 kg
[2019-02-22 12:58] VITALS: BP 115/69
[2019-02-22] MEDS ORDERED: NS 1,000 ML IV ONE (13:15)
[2019-02-22 13:32] LABS: VENOUS HCO3 23.6 MEQ/L (23.0-27.0); VENOUS O2 SATURATION 84.7 % (60.0-80.0); VENOUS PARTIAL PRESSURE CO2 47.6 mmHg (38.0-50.0); VENOUS PARTIAL PRESSURE O2 53.6 mmHg (30.0-50.0); VENOUS PH 7.314 UNITS (7.330-7.430); VENOUS STANDARD HCO3 21.7 MEQ/L; VENOUS TOTAL CO2 25.1 MEQ/L (24.0-28.0)
[2019-02-22 13:43] LABS: BASO # 0.1 10^3/uL (0.0-0.2); BASO % 0.9 % (0.0-1.0); EOS # 0.2 10^3/uL (0.0-0.5); EOS % 2.5 % (0.0-3.0); HEMATOCRIT 48.8 % (42.0-52.0); LYMPH # 2.5 10^3/uL (1.5-5.0); LYMPH % 26.9 % (24.0-44.0); MEAN CORPUSCULAR HEMOGLOBIN 30.5 pg (27.0-33.0); MEAN CORPUSCULAR HGB CONC 32.8 g/dl (32.0-36.5); MEAN CORPUSCULAR VOLUME 93.1 fl (80.0-96.0); MONO # 0.7 10^3/uL (0.0-0.8); MONO % 7.5 % (0.0-5.0); NEUTROPHILS # 5.8 10^3/uL (1.5-8.5); NEUTROPHILS % 61.6 % (36.0-66.0); PLATELET COUNT, AUTOMATED 217 10^3/uL (150-450); RED BLOOD COUNT 5.24 10^6/uL (4.30-6.10); WHITE BLOOD COUNT 9.4 10^3/uL (4.0-10.0)
[2019-02-22] MEDS ORDERED: ISOVUE-370 76% 100ML VIAL (Q9967) As Ordered ONE (13:53)
[2019-02-22 13:54] LABS: INR 1.1; PROTHROMBIN TIME 13.9 SECONDS (11.8-14.0)
[2019-02-22 13:55] LABS: PARTIAL THROMBOPLASTIN TIME 31.4 SECONDS (25.0-38.4)
[2019-02-22 14:10] LABS: ALBUMIN 4.3 GM/DL (3.2-5.2); ALT/SGPT 55 U/L (12-78); AMYLASE 92 U/L (25-115); BILIRUBIN,DIRECT 0.1 MG/DL (0.0-0.2); BILIRUBIN,TOTAL 0.3 MG/DL (0.2-1.0); CK-MB VALUE MASS 1.1 NG/ML (<3.6); CPK CREATINE PHOSPHOKINASE 167 U/L (39-308); ETHYL ALCOHOL (ETHANOL) 0.413 % (0.000-0.010); LIPASE 324 U/L (73-393); MB/CK RELATIVE INDEX 0.66 (< OR =4); TOTAL PROTEIN 8.4 GM/DL (6.4-8.2); TROPONIN I < 0.02 NG/ML (< 0.10)
[2019-02-22 14:22] LABS: AMPHETAMINES LEVEL URINE NEGATIVE (NEGATIVE); BARBITURATES URINE NEGATIVE (NEGATIVE); BENZODIAZEPINES URINE NEGATIVE (NEGATIVE); CANNABINOIDS URINE NEGATIVE (NEGATIVE); COCAINE METABOLITE URINE NEGATIVE (NEGATIVE); METHADONE URINE NEGATIVE (NEGATIVE); OPIATES URINE NEGATIVE (NEGATIVE); PHENCYCLIDINE URINE NEGATIVE (NEGATIVE)
--- NOTE | 2019-02-22 14:25 | REP ---
CT of the brain without IV contrast: Comparison is 04/19/2018. There is no hemorrhage. There is no edema, mass effect or midline shift. The cortical stripe is unremarkable. The visualized paranasal sinuses and mastoid air cells are clear. Impression: There is no hemorrhage, acute infarct or mass. Negative CT study of the brain. Electronically Signed by Evert Cedeno MD 02/22/2019 02:16 P
--- NOTE | 2019-02-22 14:42 | REP ---
CT of the cervical spine: Comparison is 04/19/2018. Axial images are acquired helical scanning and are reformatted sagittal coronal projections. Vertebral body heights, interspacing alignment are normal. The prevertebral soft tissues are unremarkable. The facets are normally aligned. There are small osteophytes anteriorly at the C5 and C6 vertebral bodies compatible with mild degenerative disc disease at these levels. This is unchanged. The skull base, C1-C2 are unremarkable. There are no posterior element fractures. Impression: There is no fracture or listhesis. No change from the prior study. Electronically Signed by Evert Cedeno MD 02/22/2019 02:33 P
--- NOTE | 2019-02-22 14:57 | REP ---
CT of the abdomen and pelvis with IV contrast: The study is performed contiguous with the chest CT utilizing the same IV contrast bolus. Axial images are acquired helical scanning and a reformatted sagittal and coronal projections. The abdominal aorta is unremarkable. There is no periaortic or retroperitoneal hematoma. The hepatic parenchyma is unremarkable except for A 19 mm hypodensity in the right lobe, l unchanged from the comparison study. This is nonspecific and could be a cyst or possibly hemangioma. There is no hepatic laceration or hemorrhage. The gallbladder, pancreas and spleen are unremarkable. There is no intrasplenic or perisplenic hematoma. The adrenals are unremarkable. The kidneys are unremarkable. There is no renal or pararenal hematoma. The bowel and mesentery are unremarkable. There is no hemoperitoneum. There is no pneumoperitoneum. Pelvis: There is no hemoperitoneum. The bladder is unremarkable. The pelvic bowel loops are unremarkable. No lumbar, iliac, sacral, a she will or hip fractures are identified. There are tiny bone islands in the femoral heads bilaterally. Impression: There is no pneumoperitoneum or hemoperitoneum. There is no solid organ injury. No periaortic hematoma. No fracture. Electronically Signed by Evert Cedeno MD 02/22/2019 02:49 P
[2019-02-22] MEDS ORDERED: LIDOCAINE 1% MDV 20ML VIAL SC ONE (15:00)
--- NOTE | 2019-02-22 15:21 | REP ---
CT of the chest with IV contrast: There are no comparison studies. There is no pneumothorax, hemothorax or pulmonary contusion. The thoracic aorta is unremarkable. There is no mediastinal hematoma. Cardiac size is normal. There is no clavicle fracture. There are tiny gas bubbles within the right sternoclavicular joint, likely degenerative change. There is no scapular fracture. There are multiple tiny bone islands within the humeral heads bilaterally and within the upper scapula bilaterally. There is no thoracic vertebral body compression deformity or listhesis. 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 There is no sternal fracture. No rib fractures are identified. Impression: There is no pneumothorax, hemothorax or pulmonary contusion. No mediastinal hematoma. The thoracic aorta is unremarkable. No fractures are identified. Essentially negative CT study of the chest. Electronically Signed by Evert Cedeno MD 02/22/2019 03:13 P
--- NOTE | 2019-02-22 16:05 | REP ---
Portable chest, single AP view with the patient supine: Comparison is the PA and lateral chest dated 03/28/2017. The lung pedro are clear. The cardiac size is normal. The river, mediastinum, and skeletal structures are unremarkable. Impression: Negative portable chest. Electronically Signed by Evert Cedeno MD 02/22/2019 03:56 P
--- NOTE | 2019-02-22 16:06 | REP ---
Right shoulder three views: No fracture is identified. No dislocation. The acromioclavicular joint appears mildly widened. This could be degenerative or post-traumatic. Correlate with clinical point tenderness. There appear to be bone islands in the humeral head. Impression: Mild acromioclavicular joint widening, congenital versus post-traumatic. Electronically Signed by Evert Cedeno MD 02/22/2019 03:57 P
--- NOTE | 2019-02-22 16:07 | REP ---
Right elbow for views: There are is soft tissue edema at the olecranon. There is no fracture or dislocation. Mineralization joint spaces are normal. There are small bone islands in the distal humerus. There is no hemarthrosis. There is an accessory ossicle at the olecranon. Electronically Signed by Evert Cedeno MD 02/22/2019 03:58 P
--- NOTE | 2019-02-22 16:08 | REP ---
The right knee four views : There is no fracture or dislocation. Mineralization and joint spaces are normal. There are no calcifications or foreign bodies. There is no effusion. Impression: Negative right knee . Electronically Signed by Evert Cedeno MD 02/22/2019 03:59 P
--- NOTE | 2019-02-22 16:11 | REP ---
AP pelvis: There is an apparent nondisplaced right ischium fracture, however, this may be artifact from positioning. No fracture is confirmed on the CT of the abdomen/ pelvis. No other pelvic fracture is identified. No hip fractures are identified. The bladder is opacified. Impression: No pelvic fracture. Right hip two views: There is no fracture or dislocation. Mineralization joint space are normal. There are no calcifications or foreign bodies except for small bone islands in the femoral head. Impression: No right hip fracture or dislocation. Electronically Signed by Evert Cedeno MD 02/22/2019 04:03 P
--- NOTE | 2019-02-23 08:12 | ECGEPIP ---
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
== END 2019-02-22 16:00 | disposition left against medical advice (07) ==
LOC: EDBD 12:45 → M ED 12:45
DX: F10.129 Alcohol abuse with intoxication, unspecified (principal); K21.9 Gastro-esophageal reflux disease without esophagitis; I10 Essential (primary) hypertension; F17.200 Nicotine dependence, unspecified, uncomplicated; Z79.899 Other long term (current) drug therapy; Z88.0 Allergy status to penicillin; Z88.1 Allergy status to other antibiotic agents; Z88.6 Allergy status to analgesic agent; Z88.8 Allergy status to other drugs, medicaments and biological substances; Z53.21 Procedure and treatment not carried out due to patient leaving prior to being seen by health care provider
CPT/HCPCS: 70450; 71045; 71260; 72125; 73030; 73080; 73502; 73564; 74177; 80047; 80076; 80307; 81001; 82150; 82550; 82553; 82803; 83605; 83690; 85025; 85610; 85730; 86850; 86900; 86901; 93005; 93041; 96360; 96361; 99284; G0480; Q9967

== ENCOUNTER → 2019-07-22 | Outpatient (REF) | payer OTHER ==
[~2019-07-22] MED LIST changes: -FLUO20CA19 PO; +FLUO20CA22 PO
[2019-07-22 19:04] LABS: HEMOGLOBIN A1c 5.8 %
== END ==
LOC: M LAB REF 16:36
PROVIDERS: ATTEND Physician Assistant
DX: R73.03 Prediabetes (principal)

== ENCOUNTER 2020-11-13 13:53 | Emergency (ER) | payer OTHER ==
[2020-11-13] VITALS (7 sets, daily range): BP systolic 93–119; BP diastolic 52–65
[~2020-11-13] VITALS: Ht 167.6 cm; Wt 75.0 kg
[~2020-11-13 13:53] MED LIST changes: +GABA-282 PO; +GABA-283; +GABA-283 PO; -GABA-843 PO; -GABA-845; -GABA-845 PO; -LISI-542 PO; -LISI-672; +LISI-898 PO; +LISI10TA22 PO; -LISI10TA4 PO; +LISI30TA4
[2020-11-13] MEDS ORDERED: NS 1,000 ML IV ONE ×2 (14:15→17:15)
[2020-11-13] MEDS ORDERED: GABA600T4 PO (14:26)
[2020-11-13] MEDS ORDERED: LISI30TA4 PO (14:26)
[2020-11-13] MEDS ORDERED: LORazepam 2 MG/ML VIAL IV STA (14:27)
--- NOTE | 2020-11-13 14:37 | REP ---
INDICATION: UGI bleed COMPARISON: 02/22/2019 TECHNIQUE: Portable AP view of the chest FINDINGS: The mediastinum and cardiac silhouette are stable and within normal limits for portable technique. The lung pedro are clear without acute consolidation, effusion, or pneumothorax. Skeletal structures are intact. IMPRESSION: No acute cardiopulmonary process appreciated. <Electronically signed by Sher Kurtz > 11/13/20 [id number]
[2020-11-13] MEDS ORDERED: PANTOPRAZOLE 40MG VIAL (C9113 PER 1) IV ONE (14:50)
[2020-11-13 14:56] LABS: MEAN CORPUSCULAR VOLUME 78.6 fl (80.0-96.0); PLATELET COUNT, AUTOMATED 175 10^3/uL (150-450); RED BLOOD COUNT 1.68 10^6/uL (4.30-6.10); WHITE BLOOD COUNT 12.3 10^3/uL (4.0-10.0)
[2020-11-13 14:59] LABS: HEMATOCRIT 13.2 % (42.0-52.0); HEMOGLOBIN 3.7 g/dl (13.5-17.5); INR 1.24; PROTHROMBIN TIME 15.9 SECONDS (12.5-14.3)
[2020-11-13] MEDS ORDERED: PANTOPRAZOLE SODIUM 40 MG in D5W 50 ML IV SCH (15:00)
[2020-11-13 15:02] LABS: ALT/SGPT 84 U/L (12-78); BILIRUBIN,DIRECT 0.6 MG/DL (0.0-0.2); BILIRUBIN,TOTAL 1.1 MG/DL (0.2-1.0); BLOOD UREA NITROGEN 18 MG/DL (7-18); CALCIUM LEVEL 8.4 MG/DL (8.5-10.1); CARBON DIOXIDE LEVEL 24 MEQ/L (21-32); CHLORIDE LEVEL 96 MEQ/L (98-107); CREATININE FOR GFR 0.68 MG/DL (0.70-1.30); ETHYL ALCOHOL (ETHANOL) 0.022 % (0.000-0.010); GLOMERULAR FILTRATION RATE > 60.0 (>60); GLUCOSE, FASTING 107 MG/DL (70-100); LIPASE 269 U/L (73-393); SODIUM LEVEL 132 MEQ/L (136-145); TOTAL PROTEIN 6.1 GM/DL (6.4-8.2)
[2020-11-13] MEDS ORDERED: OCTREOTIDE ACETATE 100MCG/ML VIAL (J2354 PER 25MCG) IV ONE (15:05)
[2020-11-13] MEDS ORDERED: OCTREOTIDE ACETATE 1,200 MCG in NS 238.8 ML IV SCH (15:05)
[2020-11-13] MEDS ORDERED: LEXA1TAB2 PO (15:21)
[2020-11-13 15:30] LABS: EOSINOPHILS 1 % (0-3); LYMPHOCYTES 8 % (16-44); MONOCYTES 6 % (0-5); NEUTROPHILS 85 % (28-66)
[2020-11-13 15:32] LABS: PLATELET ESTIMATE NORMAL (NORMAL)
[2020-11-13 15:39] LABS: ANISOCYTOSIS 4+; HYPOCHROMASIA 2+; POLYCHROMASIA 2+
[2020-11-13 15:40] LABS: MICROCYTOSIS 1+
[2020-11-13 15:41] LABS: TARGET CELLS 2+
[2020-11-13 15:45] LABS: TEAR DROP CELLS 1+
[2020-11-13 16:22] LABS: RSV AMPLIFICATION NEGATIVE (NEGATIVE)
--- NOTE | 2020-11-13 20:52 | ECGEPIP ---
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
== END 2020-11-13 18:32 | disposition short-term general hospital (02) ==
LOC: M ED 13:53
DX: K92.2 Gastrointestinal hemorrhage, unspecified (principal); F10.20 Alcohol dependence, uncomplicated; I10 Essential (primary) hypertension; F32.9 Major depressive disorder, single episode, unspecified; F43.10 Post-traumatic stress disorder, unspecified; Z79.899 Other long term (current) drug therapy; Z88.0 Allergy status to penicillin; Z88.1 Allergy status to other antibiotic agents; Z88.6 Allergy status to analgesic agent; Z88.8 Allergy status to other drugs, medicaments and biological substances
CPT/HCPCS: 36430; 71045; 80048; 80076; 82077; 82140; 83690; 85025; 85610; 86850; 86900; 86901; 86920; 87631; 93005; 93041; 94760; 96365; 96366; 96368; 96375; 99285; C9113; J2060; J2354; P9016

== ENCOUNTER 2020-12-08 13:21 | Emergency (ER) | payer OTHER ==
[2020-12-08] VITALS (13 sets, daily range): BP systolic 80–107; BP diastolic 30–58
[~2020-12-08] VITALS: Ht 167.6 cm; Wt 69.0 kg
[~2020-12-08 13:21] MED LIST changes: +GABA600T4 PO; +LEXA1TAB2 PO; +LISI30TA4 PO
[2020-12-08] MEDS ORDERED: PROT20TA11 PO (13:38)
[2020-12-08] MEDS ORDERED: FOLI400T13 PO (13:38)
[2020-12-08] MEDS ORDERED: LR 1,000 ML IV ONE (14:05)
--- NOTE | 2020-12-08 14:14 | REP ---
INDICATION: CHEST PAIN. COMPARISON: 11/13/2020. TECHNIQUE: Single portable AP view of the chest was performed. FINDINGS: There is no acute infiltrate or pulmonary edema. Lungs are clear. The heart is not significantly enlarged. The mediastinal silhouette is unremarkable. The visualized osseous structures are intact. IMPRESSION: No acute pulmonary disease. <Electronically signed by Evert Leahy > 12/08/20 [id number]
[2020-12-08 14:21] LABS: EOS # 0.1 10^3/uL (0.0-0.5); EOS % 1.1 % (0.0-3.0); MEAN CORPUSCULAR HEMOGLOBIN 24.6 pg (27.0-33.0); MEAN CORPUSCULAR HGB CONC 31.3 g/dl (32.0-36.5); MEAN CORPUSCULAR VOLUME 78.7 fl (80.0-96.0); MONO # 1.3 10^3/uL (0.0-0.8); MONO % 9.6 % (2.0-8.0); NEUTROPHILS # 9.6 10^3/uL (1.5-8.5); NEUTROPHILS % 73.3 % (36.0-66.0); PLATELET COUNT, AUTOMATED 165 10^3/uL (150-450); RED BLOOD COUNT 1.22 10^6/uL (4.30-6.10); WHITE BLOOD COUNT 13.1 10^3/uL (4.0-10.0)
[2020-12-08 14:22] LABS: BLOOD UREA NITROGEN 20 MG/DL (7-18); CARBON DIOXIDE LEVEL 23 MEQ/L (21-32); CHLORIDE LEVEL 99 MEQ/L (98-107); CREATININE FOR GFR 0.62 MG/DL (0.70-1.30); GLOMERULAR FILTRATION RATE > 60.0 (>60); GLUCOSE, FASTING 101 MG/DL (70-100); POTASSIUM SERUM 4.4 MEQ/L (3.5-5.1); SODIUM LEVEL 132 MEQ/L (136-145)
[2020-12-08 14:23] LABS: ALBUMIN 2.1 GM/DL (3.2-5.2); ALT/SGPT 31 U/L (12-78); BILIRUBIN,DIRECT 0.3 MG/DL (0.0-0.2); BILIRUBIN,TOTAL 0.7 MG/DL (0.2-1.0); CALCIUM LEVEL 7.8 MG/DL (8.5-10.1); CK-MB VALUE MASS < 1.0 NG/ML (<3.6); CPK CREATINE PHOSPHOKINASE 29 U/L (39-308); FREE T4 1.07 NG/DL (0.76-1.46); LIPASE 759 U/L (73-393); MB/CK RELATIVE INDEX 3.45 (< OR =4); TOTAL PROTEIN 4.8 GM/DL (6.4-8.2); TROPONIN I < 0.02 NG/ML (< 0.10)
[2020-12-08 14:24] LABS: HEMATOCRIT 9.6 % (42.0-52.0)
[2020-12-08] MEDS ORDERED: FOLI1TAB11 PO (17:34)
--- NOTE | 2020-12-08 17:43 | ECGEPIP ---
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
[2020-12-08] MEDS ORDERED: ACETAMINOPHEN 500 MG TAB PO ONE (18:20)
[2020-12-08] MEDS ORDERED: PANT-23 PO (18:20)
[2020-12-08 19:35] LABS: RSV AMPLIFICATION NEGATIVE (NEGATIVE)
== END 2020-12-08 21:30 | disposition short-term general hospital (02) ==
LOC: M ED 13:21 → EDBD 13:21 → M ED 21:30
DX: K92.2 Gastrointestinal hemorrhage, unspecified (principal); D64.9 Anemia, unspecified; R00.0 Tachycardia, unspecified; F17.200 Nicotine dependence, unspecified, uncomplicated; F10.10 Alcohol abuse, uncomplicated; Z79.899 Other long term (current) drug therapy; Z88.0 Allergy status to penicillin; Z88.6 Allergy status to analgesic agent; Z88.8 Allergy status to other drugs, medicaments and biological substances
CPT/HCPCS: 36430; 71045; 80048; 80076; 82550; 82553; 83690; 84439; 84443; 85025; 86850; 86900; 86901; 86920; 87631; 93005; 93041; 94760; 96365; 96366; 99285; P9016

== ENCOUNTER 2021-04-04 13:20 | Inpatient (IN) | payer OTHER ==
[~2021-04-04] VITALS: Ht 162.6 cm; Wt 67.1 kg
[~2021-04-04 13:20] MED LIST changes: -CYMB60CA3 PO; +CYMB60CA4 PO; +FOLI400T13 PO; +PANT-23 PO; +PROT20TA11 PO
--- OUTSIDE RECORDS SUMMARY | 2021-04-04 13:33 | CCD ---
Author Author [facility] Organization [facility] Address Unknown Phone Unavailable Care Team Providers Care Clicker Operator Name Role Phone MANUELA RATLIFF DORCAS RPA-C Unavailable Unavailable RATLIFF, MANUELA DORCAS RPA-C Unavailable Unavailable RATLIFF, MANUELA DORCAS RPA-C Unavailable Unavailable RATLIFF, MANUELA DORCAS RPA-C Unavailable Unavailable RATLIFF, MANUELA DORCAS RPA-C Unavailable Unavailable RATLIFF, MANUELA DORCAS RPA-C Unavailable Unavailable RATLIFF, MANUELA DORCAS RPA-C Unavailable Unavailable RATLIFF, MANUELA DORCAS RPA-C Unavailable Unavailable RATLIFF, MANUELA DORCAS RPA-C Unavailable Unavailable RATLIFF, MANUELA DORCAS RPA-C Unavailable Unavailable RATLIFF, MANUELA DORCAS RPA-C Unavailable Unavailable RATLIFF, MANUELA DORCAS RPA-C Unavailable Unavailable RATLIFF, MANUELA DORCAS RPA-C Unavailable Unavailable RATLIFF, MANUELA DORCAS RPA-C Unavailable Unavailable RATLIFF, MANUELA DORCAS RPA-C Unavailable Unavailable RATLIFF, MANUELA DORCAS RPA-C Unavailable Unavailable RATLIFF, MANUELA DORCAS RPA-C Unavailable Unavailable RATLIFF, MANUELA DORCAS RPA-C Unavailable Unavailable RATLIFF, MANUELA DORCAS RPA-C Unavailable Unavailable RATLIFF, MANUELA DORCAS RPA-C Unavailable Unavailable RATLIFF, MANUELA DORCAS RPA-C Unavailable Unavailable RATLIFF, MANUELA DORCAS RPA-C Unavailable Unavailable RATLIFF, MANUELA DORCAS RPA-C Unavailable Unavailable RATLIFF, MANUELA DORCAS RPA-C Unavailable Unavailable RATLIFF, MANUELA DORCAS RPA-C Unavailable Unavailable RATLIFF, MANUELA DORCAS RPA-C Unavailable Unavailable RATLIFF, MANUELA DORCAS RPA-C Unavailable Unavailable RATLIFF, MANUELA DORCAS RPA-C Unavailable Unavailable RATLIFF, MANUELA DORCAS RPA-C Unavailable Unavailable RATLIFF, MANUELA DORCAS RPA-C Unavailable Unavailable RATLIFF, MANUELA DORCAS RPA-C Unavailable Unavailable RATLIFF, MANUELA DORCAS RPA-C Unavailable Unavailable RATLIFF, MANUELA DORCAS RPA-C Unavailable Unavailable RATLIFF, MANUELA DORCAS RPA-C Unavailable Unavailable RATLIFF, MANUELA DORCAS RPA-C Unavailable Unavailable RATLIFF, MANUELA DORCAS RPA-C Unavailable Unavailable RATLIFF, MANUELA DORCAS RPA-C Unavailable Unavailable RATLIFF, MANUELA DORCAS RPA-C Unavailable Unavailable RATLIFF, MANUELA DORCAS RPA-C Unavailable Unavailable RATLIFF, MANUELA DORCAS RPA-C Unavailable Unavailable RATLIFF, MANUELA DORCAS RPA-C Unavailable Unavailable RATLIFF, MANUELA DORCAS RPA-C Unavailable Unavailable RATLIFF, MANUELA DORCAS RPA-C Unavailable Unavailable Howard, Antonio Unavailable Unavailable Howard, Antonio Unavailable Unavailable Howard, Antonio Unavailable Unavailable Howard, Antonio Unavailable Unavailable Howard, Antonio Unavailable Unavailable Howard, Antonio Unavailable Unavailable Badrinath, Soo Unavailable Badrinath, Soo Unavailable Badrinath, Soo Unavailable BADRINATH, SOO . Unavailable Unavailable Magdiel ZENDEJAS MD Unavailable Unavailable CRISTIANAMagdiel MD Unavailable Unavailable CRISTIANAMagdiel MD Unavailable Unavailable CRISTIANAMagdiel MD Unavailable Unavailable CRISTIANAMagdiel MD Unavailable Unavailable CRISTIANA, Magdiel JOHNSON MD Unavailable Unavailable CRISTIAANMagdiel MD Unavailable Unavailable CRISTIANAMagdiel MD Unavailable Unavailable CRISTIANAMagdiel MD Unavailable Unavailable RON LINARES MD Unavailable Unavailable JamilriBethanie MD Unavailable Unavailable Bethanie Walls MD Unavailable Unavailable JamilriBethanie MD Unavailable Unavailable Bethanie Walls MD Unavailable Unavailable Bethanie Walls MD Unavailable Unavailable Bethanie Walls MD Unavailable Unavailable Bethanie Walls MD Unavailable Unavailable Renny FUNEZ MD Unavailable Unavailable Renny FUNEZ MD Unavailable Unavailable Gutschjosh SHORT, Jaxon Unavailable Gutschjosh SHORT, Jaxon Unavailable Gutschjosh SHORT, Jaxon Unavailable Gutsche , Jaxon Unavailable Gutsche , Jaxon Unavailable Gutsche , Jaxon Unavailable Gutsche , Jaxon Unavailable Gutsche , Ajxon Unavailable Gutsche , Jaxon Unavailable Gutsche , Jaxon Unavailable Gutsche , Jaxon Unavailable Gutsche , Jaxon Unavailable Gutsche , Jaxon Unavailable Gutsche MD, Jaxon Unavailable Gutsche MD, Jaxon Unavailable Nicola MD, Jaxon Unavailable Deandrasche MD, Jaxon Unavailable Deandrasche MD, Jaxon Unavailable Deandrasche MD, Jaxon Unavailable Alexe MD, Jaxon Unavailable ALEXE, JAXON [id number] Unavailable Unavailable GHASEMI, LAMONT MD Unavailable Unavailable GHASEMI, LAMONT MD Unavailable Unavailable GHASEMI, LAMONT MD Unavailable Unavailable GHASEMI, LAMONT MD Unavailable Unavailable GHASEMI, LAMONT MD Unavailable Unavailable GHASEMI, LAMONT MD Unavailable Unavailable GHASEMI, LAMONT MD Unavailable Unavailable GHASEMI, LAMONT MD Unavailable Unavailable GHASEMI, LAMONT MD Unavailable Unavailable GHASEMI, LAMONT MD Unavailable Unavailable GHASEMI, LAMONT MD Unavailable Unavailable GHASEMI, LAMONT MD Unavailable Unavailable Re-disclosure Warning The records that you are about to access may contain information from federally-assisted alcohol or drug abuse programs. If such information is present, then the following federally mandated warning applies: This information has been disclosed to you from records protected by federal confidentiality rules (42 CFR part 2). The federal rules prohibit you from making any further disclosure of this information unless further disclosure is expressly permitted by the written consent of the person to whom it pertains or as otherwise permitted by 42 CFR part 2. A general authorization for the release of medical or other information is NOT sufficient for this purpose. The Federal rules restrict any use of the information to criminally investigate or prosecute any alcohol or drug abuse patient.The records that you are about to access may contain highly sensitive health information, the redisclosure of which is protected by Article 27-F of the [facility] Public Health law. If you continue you may have access to information: Regarding HIV / AIDS; Provided by facilities licensed or operated by the [facility] Office of Mental Health; or Provided by the [facility] Office for People With Developmental Disabilities. If such information is present, then the following [facility] mandated warning applies: This information has been disclosed to you from confidential records which are protected by state law. State law prohibits you from making any further disclosure of this information without the specific written consent of the person to whom it pertains, or as otherwise permitted by law. Any unauthorized further disclosure in violation of state law may result in a fine or custodial sentence or both. A general authorization for the release of medical or other information is NOT sufficient authorization for further disc losure. Allergies and Adverse Reactions Type Description Substance Reaction Status Data Source(s ) Propensity to adverse reactions PENICILLINS Penicillin [facility] Propensity to adverse reactions NAPROXEN NAPROXEN [facility] Propensity to adverse reactions IBUPROFEN Ibuprofen [facility] Propensity to adverse reactions DIPHENHYDRAMINE DIPHENHYDRAMINE [facility] Drug allergy AMOXICILLIN-POT CLAVULANATE AMOXICILLIN-POT CLAVULANATE [facility] Allergy to substance Allergy to substance Naproxen [facility]) Allergy to substance Allergy to substance Ibuprofen [facility] ([facility]) Allergy to substance Allergy to substance Diphenhydramine Hcl [facility] ([facility]) Family History Family Member Name Family Member Gender Family Member Status Date o f Status Description Data Source(s) Unknown Unknown Problem [facility] ([facility], [facility]) Encounters Encounter Providers Location Date Indications Data Source(s ) Outpatient Attender: Soo RamacahndranAttender: SOO LING . 03/23/2021 12:00:[address] [facility] Inpatient Attender: Antonio Lee antonieta: LAMONT GRAY MDAdmitter: LAMONT GRAY MDReferrer: LAMONT GRAY MD [id number] 12/08/2020 12:00: 00 AM EDT - 12/12/2020 01:58:[address] [facility] Patient discharged. FERNY Bartlett: [address] [facility], [facility] [address], [place] [address], Ph. Attender: DORCAS ISAACS [facility] Medical [facility] Attender: SOO RAMACHANDRAN . [id number] 11/17/2020 03:42:22 PM EDT [facility] Inpatient Attender: RON MILLER MDAttender: Jaxon Last MDAttender: JAXON LAST [id number]: Bethanie Walls MDAttender: DONAL HUBBARD MDAttender: ALEXNILSON ZENDEJAS MDAdmitter: Bethanie Walls MDReferrer: DONAL HUBBARD MD [id number] 11/13/2020 12:00:00 AM EDT - 11/17/2020 05:29:00 PM EDT [facility] Patient discharged. Immunizations Vaccine Date Status Description Data Source(s) SARS-COV-2 (COVID-19) vaccine, UNSPECIFIED 10/30/2020 12:00:00 A M EDT completed 10/30/2020 [facility] ([facility]) COVID-19 VACCINE [place] 10/30/2020 12:00:00 AM EDT completed [employer] Vaccine Series Complete: YESThis Data wa s Submitted to [facility] Via [employer]. Medications Medication Brand Name Start Date Product Form Dose Route Admi nistrative Instructions Pharmacy Instructions Status Indications Reaction Description Data Source(s) Acetaminophen 325 MG Oral Tablet Acetaminophen 325 MG Oral T ablet 12/12/2020 12:00:00 AM EDT 650 mg Oral active Take 2 tablets by mouth every 8 (eight) hours as needed for up to 10 days [facility] Thiamine 100 MG Oral Tablet Thiamine HCl 100 MG Oral T ablet (B-1) Thiamine HCl 100 MG Oral Tablet (B-1) 12/12/2020 12:00:00 AM EDT 100 mg Oral active [facility] MG Oral Tablet Lisinopril 5 MG Oral Table t (PRINIVIL,ZESTRIL) Lisinopril 5 MG Oral Tablet (PRINIVIL,ZESTRIL) 12/12/2020 12:00:00 AM EDT 5 mg Oral active Take 1 tablet by mouth d [facility] pantoprazole 40 MG Delayed Release Oral Tablet pantoprazole (PROTONIX) EC tablet 40 mg pantoprazole (PROTONIX) EC tablet 40 mg 12/11/2020 07:30:00 AM E DT 40 mg Oral active 40 mg, Ora l, Before Breakfast, First dose (after last modification) on Sun12/11/20 at 0730, For 5 doses
Do not crush or chew
[facility] Medication administered onsite Acetaminophen 325 MG Oral Tablet acetaminophen (TYLENO L) tablet 650 mg acetaminophen (TYLENOL) tablet 650 mg 12/10/2020 04:46:26 PM EDT 65 0 mg Oral active 650 mg, Oral, E very 8 hours PRN, Mild Pain (Pain Scale Score 1- 3), Starting on Sun12/10/20 at 1646, For 48 hours
Maximum daily dose of acetaminophen is 3,000 mg from all sources in 24 hours.
[facility] Medication administered onsite Oxycodone Hydrochloride 5 MG Oral Tablet oxyCODONE (ROXICODONE) immediate release tablet 5 mg oxyCODONE (ROXICODONE) immediate release tablet 5 mg 12/10/2020 04:45:00 PM EDT 5 mg Oral completed 5 mg, Oral, Once, On Sun12/10/20 at 1645, For 1 dose
Oxycodone immediate release is limited to 10 mg per dose. Higher doses ( only) require Pain Service consultation and approval.
[facility] Medication administered onsite fentaNYL (SUBLIMAZE) (PF) injection 6107-8915-16 12/10/2020 12:18:14 PM EDT completed Code/Trauma Medicati on, Starting on Sun12/10/[address] [place] [address] Medication administered onsite 2 ML Midazolam 1 MG/ML Injection midazolam (PF) (VERSE D) injection midazolam (PF) (VERSED) injection 12/10/2020 12:10:25 PM EDT aborted Code/Trauma Medication, Starting on Sun12/10/[address] [place] [address] Medication administered onsite fentaNYL (SUBLIMAZE) (PF) injection [id number] 12/10/2020 12:10:02 PM EDT aborted Code/Trauma Medicati on, Starting on Sun12/10/[address] [place] [address] Medication administered onsite 2 ML Midazolam 1 MG/ML Injection midazolam (PF) (VERSE D) injection midazolam (PF) (VERSED) injection 12/10/2020 12:09:08 PM EDT aborted Code/Trauma Medication, Starting on Sun12/10/20 at 1209 [facility] Medication administered onsite fentaNYL (SUBLIMAZE) (PF) injection [id number] 12/10/2020 12:08:42 PM EDT aborted Code/Trauma Medicati on, Starting on Sun12/10/20 at 1208 [facility] Medication administered onsite phytonadione (VITAMIN K1) 1 mg/mL oral solution 10 mg 12/09/2020 07:35:00 PM EDT 10 mg Oral completed 10 mg, Oral, Daily Standard, First dose on Sun12/09/20 at 1945, For 3 days [facility] Medication administered onsite NaCl infusion 0.9 % [id number] 12/09/2020 07:00:00 PM EDT Intravenous aborted at 100 mL/hr, Intrav enous, Continuous, Starting on Sun12/09/20 at 1900, For 24 hours [facility] Medication administered onsite Bisacodyl 5 MG Delayed Release Oral Tablet bisacodyl ( DULCOLAX) EC tablet 20 mg bisacodyl (DULCOLAX) EC tablet 20 mg 12/09/2020 05:45:00 PM EDT 20 mg Oral completed 20 mg, Oral, Onc e, On Sun12/09/20 at 1745, For 1 dose
Do not crush or chew
[facility] Medication administered onsite pantoprazole 40 MG Delayed Release Oral Tablet pantoprazole (PROTONIX) EC tablet 40 mg pantoprazole (PROTONIX) EC tablet 40 mg 12/09/2020 05:30:00 PM E DT 40 mg Oral aborted 40 mg, Ora l, Two times daily before breakfast and dinner, First dose on Sun12/09/20 at 1730, For 30 days
Do not crush or chew
[facility] Medication administered onsite 2 ML Midazolam 1 MG/ML Injection midazolam (PF) (VERSE D) injection midazolam (PF) (VERSED) injection 12/09/2020 05:04:35 PM EDT completed Code/Trauma Medication, Starting on Sun12/09/20 at 1704 [facility] Medication administered onsite fentaNYL (SUBLIMAZE) (PF) injection [id number] 12/09/2020 05:04:11 PM EDT completed Code/Trauma Medicati on, Starting on Carol 12/09/20 at 1704 [facility] Medication administered onsite 2 ML Midazolam 1 MG/ML Injection midazolam (PF) (VERSE D) injection midazolam (PF) (VERSED) injection 12/09/2020 05:02:04 PM EDT completed Code/Trauma Medication, Starting on Carol 12/09/20 at 1702 [facility] Medication administered onsite fentaNYL (SUBLIMAZE) (PF) injection [id number] 12/09/2020 05:01:47 PM EDT completed Code/Trauma Medicati on, Starting on Carol 12/09/20 at 1701 [facility] Medication administered onsite NaCl infusion 0.9 % [id number] 12/09/2020 03:00:00 PM EDT Intravenous aborted at 100 mL/hr, Intrav enous, Continuous, Starting on Carol 12/09/20 at 1500, For 24 hours [facility] Medication administered onsite Oxycodone Hydrochloride 5 MG Oral Tablet oxyCODONE (ROXICODONE) immediate release tablet 2.5 mg oxyCODONE (ROXICODONE) immediate release tablet 2.5 mg 12/09/2020 12:47:45 PM EDT 2.5 mg Oral completed 2.5 mg, Oral, Every 6 hours PRN, Severe Pain (Pain Scale Score 7-10), Starting on Carol 12/09/20 at 1247, For 1 day
Oxycodone immediate release is limited to 10 mg per dose. Higher doses ( only) require Pain Service consultation and approval.
[facility] Medication administered onsite Escitalopram 10 MG Oral Tablet escitalopram (LEXAPRO) tablet 20 mg escitalopram (LEXAPRO) tablet 20 mg 12/09/2020 09:00:00 AM EDT 20 mg Oral active 20 mg, Oral, Daily Standard, First dose on Carol 12/09/20 at 0900, For 30 days [facility] Medication administered onsite multivitamin tablet 1 tablet [id number] 12/09/2020 09:00:00 AM EDT 1 {tbl} Oral active 1 tablet, Oral , Daily Standard, First dose on Carol 12/09/20 at 0900, For 30 days [facility] Medication administered onsite Ceftriaxone 1000 MG Injection cefTRIAXone (ROCEPHIN) i nfusion 1 g (premix) cefTRIAXone (ROCEPHIN) infusion 1 g (premix) 12/09/2020 09:00:00 AM EDT 1 g Intravenous aborted 1 g, Intraven ous, at 100 mL/hr, Daily Standard, First dose on Carol 12/09/20 at 0900, For 4 doses
Discouraged Uses: Empiric treatment of post-surgical meningitis (ceftazidime preferred)
[facility] Medication administered onsite Oxycodone Hydrochloride 5 MG Oral Tablet oxyCODONE (ROXICODONE) immediate release tablet 2.5 mg oxyCODONE (ROXICODONE) immediate release tablet 2.5 mg 12/09/2020 08:45:00 AM EDT 2.5 mg Oral completed 2.5 mg, Oral, Once, On Carol 12/09/20 at 0845, For 1 dose
Oxycodone immediate release is limited to 10 mg per dose. Higher doses ( only) require Pain Service consultation and approval.
[facility] Medication administered onsite NaCl infusion 0.9 % [id number] 12/09/2020 07:45:00 AM EDT Intravenous aborted at 200 mL/hr, Intrav enous, Continuous, Starting on Carol 12/09/20 at 0745, For 12 hours [facility] Medication administered onsite pantoprazole 4 MG/ML Injectable Solution pantoprazole (PROTONIX) injection 80 mg pantoprazole (PROTONIX) injection 80 mg 12/08/2020 11:45:00 PM EDT 80 mg Intravenous completed 80 mg, Intrav enous, Once, On Sun12/08/20 at 2345, For 1 dose [facility] Medication administered onsite pantoprazole (PROTONIX) 0.4 mg/mL in sodium chloride 0.9 % 2 50 mL infusion 12/08/2020 11:45:00 PM EDT 8 mg/h Intravenous aborted 8 mg/hr (20 mL/hr), Intravenous, at 20 mL/hr, Continuous, Starting on Sun12/08/20 at 2345, For 30 days
Indication: Active GI bleed [facility] Medication administered onsite 1 ML Octreotide 0.05 MG/ML Prefilled Syr moreno octreotide (SANDOSTATIN) injection 50 mcg octreotide (SANDOSTATIN) injection 50 mcg 12/08/2020 11:45:00 PM EDT 50 ug Intravenous completed 50 mcg, Intravenous, Once, On Sun12/08/20 at 2345, For 1 dose [facility] Medication administered onsite octreotide (SANDOSTATIN) 5 mcg/mL in sodium chloride 0.9 % 2 50 mL infusion 12/08/2020 11:45:00 PM EDT 50 ug/h Intravenous aborted 50 mcg/hr (10 mL/hr), Intravenous, at 10 mL/hr, Continuous, Starting on Sun12/08/20 at 2345, For 30 days [facility] Medication administered onsite thiamine (B-1) 500 mg in sodium chloride 0.9 % 50 mL IVPB 12/08/2020 11:45:00 PM EDT 500 mg Intravenous active 500 mg, Intravenous, Administer over 30 Minutes, Daily Standard, First dose on Sun12/08/20 at 2345, For 30 days [facility] Medication administered onsite folic acid 1 mg in sodium chloride 0.9 % 50 mL IVPB 12/08/2020 11:45:00 PM EDT 1 mg Intravenous active 1 mg , Intravenous, Administer over 30 Minutes, Daily Standard, First dose on Sun12/08/20 at 2345, For 30 days [facility] Medication administered onsite NaCl infusion 0.9 % [id number] 12/08/2020 11:30:00 PM EDT Intravenous aborted at 200 mL/hr, Intrav enous, Continuous, Starting on Sun12/08/20 at 2330, For 12 hours [facility] Medication administered onsite 50 ML Magnesium Sulfate 40 MG/ML Injecti on magnesium sulfate infusion 2 g/50 mL (premix) magnesium sulfate infusion 2 g/50 mL (premix) 12/09/19 11:17:50 PM EDT 16 meq Intravenous aborted 16 m Eq, Intravenous, Every 1 hour PRN, for serum magnesium < 2 mEq/L, Starting on Sun12/08/20 at 2317, For 7 days
Serum Magnesium 1.6 - 1.9: give 16 mEq (2 g) q1h x 2
Serum Magnesium 1.5 and less: give 16 mEq (2 g) q1h x 3
[facility] Medication administered onsite Folic Acid 1 MG Oral Tablet Folic Acid 1 MG Oral Table t (FOLVITE) Folic Acid 1 MG Oral Tablet (FOLVITE) 2020 12:00:00 AM EDT 1 mg Oral active Take 1 tablet by mouth daily [facility] Vitamin B 12 0.25 MG Oral Tablet Cyanocobalamin 250 MC G Oral Tablet Cyanocobalamin 250 MCG Oral Tablet 2020 12:00:00 AM EDT 250 ug Oral active Take 1 tablet by mouth daily [facility] pantoprazole 40 MG Delayed Release Oral Tablet Pantoprazole Sodium 40 MG Oral Tablet Delayed Release (Protonix) Pantoprazole Sodium 40 MG Oral Tablet De layed Release (Protonix) 11/17/2020 12:00:00 AM EDT 40 mg Oral active Take 1 tablet by mouth daily [facility] Clindamycin 300 MG Oral Capsule clindamy bharti HCl 300 mg capsule TAKE ONE CAPSULE BY MOUTH EVERY SIX HOURS UNTIL GONE clindamycin HCl 300 mg capsule TAKE ONE CAPSULE BY MOUTH EVERY SIX HOURS UNTIL GONE completed clindamycin 300 MG Oral Capsule [facility] ([facility]) duloxetine 60 MG Delayed Release Oral Ca psule duloxetine 60 mg capsule,delayed release TAKE ONE CAPSULE BY MOUTH ONCE DAILY duloxetine 60 mg capsule,delayed release TAKE ONE CAPSULE BY MOUTH ONCE DAILY completed duloxetine 60 MG Delayed Release Oral Capsule [facility] ([facility]) Lisinopril 30 MG Oral Tablet Lisinopril 30 MG Oral Tab let (ZESTRIL) Lisinopril 30 MG Oral Tablet (ZESTRIL) 30 mg Oral aborted Take 30 mg by mouth daily [facility] Insurance Providers Payer name Policy type / Coverage type Policy ID Covered constitution party ID Covered constitution party's relationship to see Policy See Plan Information Medicaid S [id number] S [id number] Medicaid S [id number] S [id number] [facility] COMMUN[facility]AN [facility] [id number] SP [id number] Managed Care - Community Plan [facility] P [id number] S [id number] Medicaid S [id number] S [id number] [facility] COMMUNITY PLAN [facility] [id number] SP [id number] Managed Care [facility] Community Plan P [id number] S [id number] [facility] [id number] SP [id number] Managed Care - Community Plan [facility] P [id number] S [id number] Managed Care - [facility] Community Plan P [id number] S [id number] [facility] I [id number] Self [id number] [facility] I [id number] Self [id number] [facility] I [id number] Self [id number] MEDICAID [id number] SP [id number] MEDICAID [id number] S [id number] SELF PAY ONLY [id number] SP [id number] SELF PAY ONLY [id number] SP [id number] UNHC COMMUNITY PLAN MCDO [id number] SP [id number] Managed Care BCBS S [id number] S [id number] SELF PAY UNAVAILABLE SP [facility] [id number] SP [id number] HMO BLUE [id number] SP [id number] D Managed Care [facility] O UNAVAILABLE S UNAVAILABLE [facility](MCA[facility]) O [id number] S [id number] [employer] COMMUNITY PLAN MCDO [id number] SP [id number] ANSI-Medicaid [id number] ANSI-Medicaid [id number] ANSI-Medicaid [id number] [facility]-Medicaid [id number] [facility]ly [facility] Maintenance [facility] [id number] Self [id number] Self Pay P None S None Managed Care Nadir P [id number] S [id number] [facility] (O) [id number] [facility] [id number] [facility] [id number] Problems, Conditions, and Diagnoses Code Display Name Description Problem Type Effective Dates Data Source(s) [id number] Fitting procedure Fitting Procedure Problem 03/04 06:13:25 PM EDT [facility]) Surgeries/Procedures Procedure Description Date Indications Data Source(s) BLOOD COUNT COMPLETE AUTOMATED <td>CBC</td><td>Timed</ td><td>12/12/2020 5:28 AM EDT</td><td></td><td> </td> 12/12/2020 05:28:[address] [facility] PHOSPHORUS INORGANIC <td>PHOSPHORUS LEVEL</td><td >Routine</td><td>12/12/2020 5:28 AM EDT</td><td></td><td> </td> 12/12/2020 05:28:[address] [facility] MAGNESIUM <td>MAGNESIUM LEVEL</td><td> Routine</td><td>12/12/2020 5:28 AM EDT</td><td></td><td> </td> 12/12/2020 05:28:[address] [facility] BASIC METABOLIC PANEL CALCIUM TOTAL <td>BASIC METABOLI C PANEL</td><td>Routine</td><td>12/12/2020 5:28 AM EDT</td><td></td><td> </td> 12/12/2020 05:28:[address] [facility] BLOOD COUNT COMPLETE AUTOMATED <td>CBC</td><td>Timed</ td><td>12/11/2020 3:52 PM EDT</td><td></td><td> </td> 12/11/2020 03:52:[address] [facility] BLOOD COUNT COMPLETE AUTOMATED <td>CBC</td><td>Timed</ td><td>12/11/2020 6:09 AM EDT</td><td></td><td> </td> 12/11/2020 06:09:[address] [facility] PHOSPHORUS INORGANIC <td>PHOSPHORUS LEVEL</td><td >Routine</td><td>12/11/2020 6:09 AM EDT</td><td></td><td> </td> 12/11/2020 06:09:[address] [facility] MAGNESIUM <td>MAGNESIUM LEVEL</td><td> Routine</td><td>12/11/2020 6:09 AM EDT</td><td></td><td> </td> 12/11/2020 06:09:[address] [facility] BASIC METABOLIC PANEL CALCIUM TOTAL <td>BASIC METABOLI C PANEL</td><td>Routine</td><td>12/11/2020 6:09 AM EDT</td><td></td><td> </td> 12/11/2020 06:09:[address] [facility] BLOOD COUNT COMPLETE AUTOMATED <td>CBC</td><td>Timed</ td><td>12/10/2020 5:47 PM EDT</td><td></td><td> </td> 12/10/2020 05:47:[address] [facility] BASIC METABOLIC PANEL CALCIUM TOTAL <td>BASIC METABOLI C PANEL</td><td>Routine</td><td>12/10/2020 1:07 PM EDT</td><td></td><td> </td> 12/10/2020 01:07:[address] [facility] BLOOD COUNT COMPLETE AUTOMATED <td>CBC</td><td>Timed</ td><td>12/10/2020 10:13 AM EDT</td><td></td><td> </td> 12/10/2020 10:13:[address] [facility] CALCIUM IONIZED <td>CALCIUM, IONIZED</td><td >Routine</td><td>12/10/2020 10:13 AM EDT</td><td></td><td> </td> 12/10/2020 10:13:[address] [facility] PHOSPHORUS INORGANIC <td>PHOSPHORUS LEVEL</td><td >Routine</td><td>12/10/2020 5:09 AM EDT</td><td></td><td> </td> 12/10/2020 05:09:[address] [facility] MAGNESIUM <td>MAGNESIUM LEVEL</td><td> Routine</td><td>12/10/2020 5:09 AM EDT</td><td></td><td> </td> 12/10/2020 05:09:[address] [facility] COMPREHENSIVE METABOLIC PANEL <td>COMPREHENSIVE METABO LIC PANEL</td><td>Routine</td><td>12/10/2020 5:09 AM EDT</td><td></td><td> </td> 12/10/2020 05:09:[address] [facility] BLOOD COUNT COMPLETE AUTOMATED <td>CBC</td><td>Timed</ td><td>12/10/2020 12:59 AM EDT</td><td></td><td> </td> 12/10/2020 12:59:[address] [facility] Screening colonoscopy (procedure) <td>COLONOSCOPY</td> <td></td><td>12/10/2020 12:00 AM EDT</td><td></td><td></td> 12/10/2020 12:00:[address] [facility] UPPER GI ENDOSCOPY; DX, W/WO SPECIMEN COLLECTION, BRUS RADHA/WASHING (SEP PROC) <td>UPPER GI ENDOSCOPY; DX, W/WO SPECIMEN COLLECTION, BRUSHING/WASHING (SEP PROC)</td><td></td><td>12/09/2020 5:00 PM EDT</td><td> Upper GI bleed</td><td></td> 12/09/2020 05:00:00 PM EDT - 12/09/2020 05:15:[address] [facility] BLOOD COUNT COMPLETE AUTOMATED <td>CBC</td><td>Timed</ td><td>12/09/2020 4:06 PM EDT</td><td></td><td> </td> 12/09/2020 04:06:[address] [facility] GLUCOSE QUANTITATIVE BLOOD XCPT REAGENT STRIP <td>POCT GLUCOSE, DOCKED</td><td>Routine</td><td>12/09/2020 12:35 PM EDT</td><td></td><td> </td> 12/09/2020 12:35:[address] [facility] TRANSFUSE RBC (ONCE) <td>TRANSFUSE RBC (ONCE)</td ><td>STAT</td><td>12/09/2020 11:00 AM EDT</td><td></td><td></td> 12/09/2020 11:00:[address] [facility] CALCIUM IONIZED <td>CALCIUM, IONIZED</td><td >Routine</td><td>12/09/2020 10:15 AM EDT</td><td></td><td> </td> 12/09/2020 10:15:[address] [facility] ULTRASOUND ABDOMINAL REAL TIME W/IMAGE LIMITED <td>US ABDOMEN LIMITED [id number]</td><td>Routine</td><td>12/09/2020 10:10 AM EDT</td><td></td><td> </td> 12/09/2020 10:10:[address] [facility] CULTURE BACTERIAL BLOOD AEROBIC W/ID ISOLATES <td>BLOO D CULTURE</td><td>Routine</td><td>12/09/2020 6:04 AM EDT</td><td></td><td></td> 12/09/2020 06:04:[address] [facility] BLOOD COUNT COMPLETE AUTOMATED <td>CBC</td><td>Timed</ td><td>12/09/2020 6:04 AM EDT</td><td></td><td> </td> 12/09/2020 06:04:[address] [facility] PHOSPHORUS INORGANIC <td>PHOSPHORUS LEVEL</td><td >Routine</td><td>12/09/2020 6:04 AM EDT</td><td></td><td> </td> 12/09/2020 06:04:[address] [facility] MAGNESIUM <td>MAGNESIUM LEVEL</td><td> Routine</td><td>12/09/2020 6:04 AM EDT</td><td></td><td> </td> 12/09/2020 06:04:[address] [facility] COMPREHENSIVE METABOLIC PANEL <td>COMPREHENSIVE METABO LIC PANEL</td><td>Routine</td><td>12/09/2020 6:04 AM EDT</td><td></td><td> </td> 12/09/2020 06:04:[address] [facility] TRANSFUSE RBC (ONCE) <td>TRANSFUSE RBC (ONCE)</td ><td>STAT</td><td>12/09/2020 5:45 AM EDT</td><td></td><td></td> 12/09/2020 05:45:[address] [facility] URNLS DIP STICK/TABLET REAGENT AUTO MICROSCOPY <td>URI NALYSIS WITH REFLEX URINE CULTURE</td><td>STAT</td><td>12/09/2020 2:02 AM EDT</td><td></td><td> </td> 12/09/2020 02:02:[address] [facility] CULTURE BACTERIAL BLOOD AEROBIC W/ID ISOLATES <td>BLOO D CULTURE</td><td>Routine</td><td>12/09/2020 12:07 AM EDT</td><td></td><td></td> 12/09/2020 12:07:[address] [facility] UPPER GI ENDOSCOPY <td>UPPER GI ENDOSCOPY</td>< td></td><td>12/09/2020 12:00 AM EDT</td><td></td><td></td> 12/09/2020 12:00:00 AM EDT [facility] COVID-19 PCR <td>COVID-19 PCR</td><td>Rou jason</td><td>12/08/2020 11:59 PM EDT</td><td></td><td> </td> 12/08/2020 11:59:[address] [facility] THROMBOPLASTIN TIME PARTIAL PLASMA/WHOLE BLOOD <td>PAR TIAL THROMBOPLASTIN TIME (PTT)</td><td>STAT</td><td>12/08/2020 11:59 PM EDT</td><td></td><td> </td> 12/08/2020 11:59:[address] [facility] PROTHROMBIN TIME <td>PROTIME INR</td><td>STAT </td><td>12/08/2020 11:59 PM EDT</td><td></td><td> </td> 12/[facility] <td>CBC</td><td>Timed</ td><td>12/08/2020 11:59 PM EDT</td><td></td><td> </td> 12/08/2020 11:59:[address] [facility] BLOOD TYPING ABO <td>TYPE AND SCREEN</td><td> STAT</td><td>12/08/2020 11:59 PM EDT</td><td></td><td> </td> 12/08/2020 11:59:[address] [facility] LIPASE <td>LIPASE LEVEL</td><td>STA T</td><td>12/08/2020 11:59 PM EDT</td><td></td><td> </td> 12/08/2020 11:59:[address] [facility] COMPREHENSIVE METABOLIC PANEL <td>COMPREHENSIVE METABO LIC PANEL</td><td>Routine</td><td>12/08/2020 11:59 PM EDT</td><td></td><td> </td> 12/08/2020 11:59:[address] [facility] Results ID Date Data Source [id number] 12/12/2020 05:24:26 PM [facility] Name Value Range Interpretation Code Description Data Lou rce(s) Supporting Document(s) Discharge Summary [facility] [id number]/LXUnrLDKdx4MeEPihXRr1MPgrAGAaI1KuHKF2wR9nHPF4OGiOOxXhIeImKiW1 lbm [file] Maria Guadalupe/ctpxkzF5LC51e0qdzFpVxcSlo2RwJJUD9ox/iG [file] SoGsVhLoEGq2EpMlDO3PRw6HTgG1EZU8hMUfPb8JOaUdODNGCwBjWG2TLVm= ID Date Data Source [id number] 12/12/2020 06:08:11 AM [facility] Name Value Range Interpretation Code Description Data Lou rce(s) Supporting Document(s) Leukocytes [#/volume] in Blood by Automated count 5.5 10*3/uL 4-10 [facility] Erythrocytes [#/volume] in Blood by Automated count 2.87 10*6/uL 4.6- 6.1 L [facility] Hemoglobin [Mass/volume] in Blood 7.8 g/dL 13.5-18 L [facility] Hematocrit [Volume Fraction] of Blood by Automated count 24.3 % 4 1-53 L [facility] Erythrocyte mean corpuscular volume [Entitic volume] by Auto mated count 84.8 fL 80-96 [facility] Erythrocyte mean corpuscular hemoglobin [Entitic mass] by Automated count 27.3 pg 27-33 [facility] Erythrocyte mean corpuscular hemoglobin concentration [Mass/volume] by Autom[facility] 32.2 g/dL [facility].0-[facility] width [Ratio] by Automated count 17.3 % 11.5-14.5 H [facility] Platelets [#/volume] in Blood by Automated count 112 10*3/uL 150-400 L [facility] ID Date Data Source [id number] 12/12/2020 06:27:20 AM [facility] Name Value Range Interpretation Code Description Data Lou rce(s) Supporting Document(s) Bicarbonate [Moles/volume] in Serum 23 mmol/L 22-29 [facility] Chloride [Moles/volume] in Serum or Plasma 102 mmol/L 98-107 [facility] Creatinine [Mass/volume] in Serum or Plasma 0.55 mg/dL 0.70-1.20 L [facility] Glucose [Mass/volume] in Serum or Plasma 102 mg/dL 70-140 [facility] Potassium [Moles/volume] in Serum or Plasma 3.5 mmol/L 3.4-5.1 [facility] Sodium [Moles/volume] in Serum or Plasma 133 mmol/L 136-145 L [facility] Urea nitrogen [Mass/volume] in Serum or Plasma 5 mg/dL 6-20 L [facility] Anion gap 3 in Serum or Plasma 9 mmol/L 8-15 [facility] Osmolality of Serum or Plasma by calculation 274 mosm/kg 275-300 [facility] Creatinine/Urea nitrogen [Mass Ratio] in Serum or Plasma 9 [facility] Calcium [Mass/volume] in Serum or Plasma 8.0 mg/dL 8.6-10.0 L [facility] Glomerular filtration rate/1.73 sq M pre dicted among non-blacks [Volume Rate/Area] in Serum or Plasma by Creatinine-based formula (MDRD) >6 0 [facility] Glomerular filtration rate/1.73 sq M pre dicted among blacks [Volume Rate/Area] in Serum or Plasma by Creatinine-based formula (MDRD) >60 [facility] ID Date Data Source [id number] 12/12/2020 06:27:20 AM [facility] Value Range Interpretation Code Description Data Lou rce(s) Supporting Document(s) Phosphate [Mass/volume] in Serum or Plasma 3.1 mg/dL 2.5-4.5 [facility] ID Date Data Source [id number] 12/12/2020 06:27:20 AM EDT [facility] Value Range Interpretation Code Description Data Lou rce(s) Supporting Document(s) Magnesium [Mass/volume] in Serum or Plasma 2.0 mg/dL 1.6-2.6 [facility] ID Date Data Source [id number] 12/11/2020 04:51:04 PM EDT [facility] Value Range Interpretation Code Description Data Lou rce(s) Supporting Document(s) Leukocytes [#/volume] in Blood by Automated count 5.3 10*3/uL 4-10 [facility] Erythrocytes [#/volume] in Blood by Automated count 2.88 10*6/uL 4.6- 6.1 L [facility] Hemoglobin [Mass/volume] in Blood 8.2 g/dL 13.5-18 L [facility] Hematocrit [Volume Fraction] of Blood by Automated count 24.5 % 4 1-53 L [facility] Erythrocyte mean corpuscular volume [Entitic volume] by Auto mated count 84.9 fL 80-96 [facility] Erythrocyte mean corpuscular hemoglobin [Entitic mass] by Automated count 28.5 pg 27-33 [facility] Erythrocyte mean corpuscular hemoglobin concentration [Mass/volume] by Automated count 33.5 g/dL 32.0-36.0 [facility] width [Ratio] by Automated count 16.9 % 11.5-14.5 H [facility] Platelets [#/volume] in Blood by Automated count 105 10*3/uL 150-400 L [facility] ID Date Data Source [id number] 12/11/2020 03:28:44 PM EDT [facility] Name Value Range Interpretation Code Description Data Lou rce(s) Supporting Document(s) History and Physical [facility] [id number]/BLJnnKTCiu0VcJRpkOQm6KXuxSOLiW9MpUEO2zZ3cUAG0SJbTByJcZnDcWzD5 lbm [file] [id number]+RGrtlDFwaTteZNHXQdUrMbE6KUxiUOGXOa8N ID Date Data Source [id number] 12/11/2020 06:57:52 AM [facility] Name Value Range Interpretation Code Description Data Lou rce(s) Supporting Document(s) Leukocytes [#/volume] in Blood by Automated count 4.6 10*3/uL 4-10 [facility] Erythrocytes [#/volume] in Blood by Automated count 2.74 10*6/uL 4.6- 6.1 L [facility] Hemoglobin [Mass/volume] in Blood 7.7 g/dL 13.5-18 L [facility] Hematocrit [Volume Fraction] of Blood by Automated count 23.0 % 4 1-53 L [facility] Erythrocyte mean corpuscular volume [Entitic volume] by Auto mated count 84.2 fL 80-96 [facility] Erythrocyte mean corpuscular hemoglobin [Entitic mass] by Automated count 28.1 pg 27-33 [facility] Erythrocyte mean corpuscular hemoglobin concentration [Mass/volume] by Automated count 33.3 g/dL 32.0-36.0 [facility] width [Ratio] by Automated count 17.0 % 11.5-14.5 H [facility] Platelets [#/volume] in Blood by Automated count 105 10*3/uL 150-400 L [facility] ID Date Data Source [id number] 12/11/2020 08:31:44 AM [facility] Value Range Interpretation Code Description Data Lou rce(s) Supporting Document(s) Magnesium [Mass/volume] in Serum or Plasma 2.1 mg/dL 1.6-2.6 [facility] ID Date Data Source [id number] 12/11/2020 08:31:44 AM [facility] Value Range Interpretation Code Description Data Lou rce(s) Supporting Document(s) Bicarbonate [Moles/volume] in Serum 22 mmol/L 22-29 [facility] Chloride [Moles/volume] in Serum or Plasma 101 mmol/L 98-107 [facility] Creatinine [Mass/volume] in Serum or Plasma 0.52 mg/dL 0.70-1.20 L [facility] Glucose [Mass/volume] in Serum or Plasma 91 mg/dL 70-140 [facility] Potassium [Moles/volume] in Serum or Plasma 3.5 mmol/L 3.4-5.1 [facility] Sodium [Moles/volume] in Serum or Plasma 133 mmol/L 136-145 L [facility] Urea nitrogen [Mass/volume] in Serum or Plasma 6 mg/dL 6-20 [facility] Anion gap 3 in Serum or Plasma 10 mmol/L 8-15 [facility] Osmolality of Serum or Plasma by calculation 273 mosm/kg 275-300 L [facility] Creatinine/Urea nitrogen [Mass Ratio] in Serum or Plasma 12 [facility] Calcium [Mass/volume] in Serum or Plasma 7.6 mg/dL 8.6-10.0 L [facility] Glomerular filtration rate/1.73 sq M pre dicted among non-blacks [Volume Rate/Area] in Serum or Plasma by Creatinine-based formula (MDRD) >6 0 [facility] Glomerular filtration rate/1.73 sq M pre dicted among blacks [Volume Rate/Area] in Serum or Plasma by Creatinine-based formula (MDRD) >60 [facility] ID Date Data Source [id number] 12/11/2020 08:31:44 AM [facility] Name Value Range Interpretation Code Description Data Lou rce(s) Supporting Document(s) Phosphate [Mass/volume] in Serum or Plasma 3.0 mg/dL 2.5-4.5 [facility] ID Date Data Source [id number] 12/10/2020 05:53:09 PM [facility] Name Value Range Interpretation Code Description Data Lou rce(s) Supporting Document(s) History and Physical [facility] [id number]/AURslAIOrl0AuJMubBHi0AVosFAWtW2ZgPLS5eT9nYGY1RWdLEmTfZzOaPfPt [facility] [file] [id number]+XYlwqDUelZmwPMPGKhP8MsvsUGnoJSPQKv6W ID Date Data Source [id number] 12/10/2020 05:53:04 PM EDT [facility] Name Value Range Interpretation Code Description Data [facility] rce(s) Supporting Document(s) History and Physical [facility] HRRGWb6cMdPWKtQr30/WQUgsHDAno6MfBNczWNu7JLsqSUYwX2BnEOK4zZ1pDKU8VObWQoSzItFsAfAa lbm [file] IDpKOPXXXqi3IaaATEoeB/KvAAV9Arh+trapeze performer+5Uf07vIL/rfnh+MD/NZn3KpJrTklg/A00UH82z+3pTrbs 8P/lKGtpLtGuhXOk9zF1KJX3GLYiSAjkcHFtydo8mA18dET9/Mm7QDa2wIrndNW0vfKBDwFWrurhgzO6 x8Z/1GVBIOzfEXBuDbHEysYIYlc8zLxQrm6F0oCqni B27pdieyUI0c+by1OujtLvAHuFlYD0kmCf3wU0oWDALOfoMkR7kd9NrKWk0iZrf2W/fcp07eKWkYXNkC IqZYPkgONpX3zVM2A7DLycA5FGCGjElXZxrD7a0C0dt6sfRtpmfLkS8v7SEr79nCX3nG5WWEdHT2WhPi KWOS2WH0lMOSvChaKT4FQyyMLhYInwzTge+Om2yLj3 Mpfd0Zas40+YhC3c7ZpxcHlES7Bf+Rr8eJPpP3zxj9225Zuwc347/eA23nQA7ci4zz8SkBJciRt+tgYI TvhpYSo1X+Gqh5LahPyZilD/HFb3B3hqLa0dfDOYdGEybdEvcev2dH8dqr+rc/W1bg/+A7Zkz8YJQz9b +6dWEH9f6E097cLECk57y26T9d/aCX3+sO9x/Q9lC4 [file] AgICAgICAgICAgICAgICAgICAgICAgICAgICAgICAg ICAgICAgICAgICAgICAgICAgICAgICAgICAgICAgICAgICAgICAgDQogICAgICAgICAgICAgICAgICAg ICAgICAgICAgICAgICAgICAgICAgICAgICAgICAgICAgICAgICAgICAgICAgICAgICAgICAgICAgICAg ICAgICAgICAgICAgICAgICAgICAgDQogICAgICAgIC AgICAgICAgICAgICAgICAgICAgICAgICAgICAgICAgICAgICAgICAgICAgICAgICAgICAgICAgICAgIC AgICAgICAgICAgICAgICAgICAgICAgICAgICAgICAgDQogICAgICAgICAgICAgICAgICAgICAgICAgIC AgICAgICAgICAgICAgICAgICAgICAgICAgICAgICAg ICAgICAgICAgICAgICAgICAgICAgICAgICAgICAgICAgICAgICAgICAgDQogICAgICAgICAgICAgICAg ICAgICAgICAgICAgICAgICAgICAgICAgICAgICAgICAgICAgICAgICAgICAgICAgICAgICAgICAgICAg ICAgICAgICAgICAgICAgICAgICAgICAgDQogICAgIC AgICAgICAgICAgICAgICAgICAgICAgICAgICAgICAgICAgICAgICAgICAgICAgICAgICAgICAgICAgIC AgICAgICAgICAgICAgICAgICAgICAgICAgICAgICAgICAgDQogICAgICAgICAgICAgICAgICAgICAgIC AgICAgICAgICAgICAgICAgICAgICAgICAgICAgICAg ICAgICAgICAgICAgICAgICAgICAgICAgICAgICAgICAgICAgICAgICAgICAgDQogICAgICAgICAgICAg ICAgICAgICAgICAgICAgICAgICAgICAgICAgICAgICAgICAgICAgICAgICAgICAgICAgICAgICAgICAg ICAgICAgICAgICAgICAgICAgICAgICAgICAgDQogIC AgICAgICAgICAgICAgICAgICAgICAgICAgICAgICAgICAgICAgICAgICAgICAgICAgICAgICAgICAgIC AgICAgICAgICAgICAgICAgICAgICAgICAgICAgICAgICAgICAgDQogICAgICAgICAgICAgICAgICAgIC AgICAgICAgICAgICAgICAgICAgICAgICAgICAgICAg RHSyTASwVBFyPDXgMCEpVUBgAQGoVJCxRKRgKPTjAQWgHSKtOTYrKFWlKWUyMKRqPEt7A6hoSARiGBHa EP6cFCn4Cn3+WGcVSkQfYKW2zsDkfH2THV4to6JzPJnxKZLdy8RlQRq3BC1FHLCpQErsLL2KFTfkxr5F IGSxDBYpwWTEu1dnCuVjVYK9CGWfJegqKK2VTOIiS0 txupVzRQBhRYOEFMpbIRXVAE3SJbEaS4DdcC13EQYFCm7+TSabozYzXnlAKzC0YMJhw1ZoYEe0HM8XZF ZjBkviz1ZlXmUcEYKXIFbaCI4LRPU3KNR9DGJbXz7GJHOoI606nhFaTA8EHw5PJiAtTS5ohi3HYxVwGZ OjYglWXij1RVdtNP9YfFUmOKwCLaBpUzptKoptfQ63 CAv1nXFjBVBQUxYHHEY0UPqaLhDoWkWtHAEbMUbjATGCAXbUZqIsI2Hlu8QcXoL3EHFfLtVtFYzcHCXu TxV4EC45eMgvKU6BMNCkGALeXO58WXZ2CSQxZo7ZJn2KPuUmHG8skf2MEpUcOJEgVjmPVkf0FUehNF2U tIYoB1SjtPPsl0fZTrZbF8YEWLIpIKGuTq3MKCFlSh CiVTTdCVbnTK4sNCInBFKBcRpptyY4SA3RRI1dqeVqNY4PNuJgGd4cVd1YAnUjG9DhJ5XsFOQlXRSZBX bwSP8UEFuxWO6nNK8Uu8VRnEPmyK3iyr7QLAZxSEVhQsxrvj5EKozvI5Z1zLvwWFVwJjVuHVFDWUmrXS 2ZSDVpAWG6TFZfRfEkCMTFDuXbD66nTI3OE2Iol21y XtD5LGKoZmXxCPyvOC32nQnnzoEnhKNlbZbsXK0IXo7+DQplbmRvYmoNCnhyZWYNCjAgMjcNCjAwMDAw OTRkARErTlZ0WoTbYi1NKKVoYRIyTWOgNjUuLJKxLNKqUYiiQOBqQUXoBPudGHIdGSLzWZ1IBbUbQDAi BoT7ToTyNORgZSYfnm9YXWXlLBHcPII2BwQuZARdIM WdZUktBNYzFBSwAlIrQDMeSFIfSY3AUfAsTDXfJCE4CJQiRXZcSNQbae3KAYPwSPCxRQN3KdPoRVSqIG GzEQozJSLjZMJ8ZcB4TVQzAIOjAN6YJkJqSPFqWOS3VCJjPEGbDELcrl2YCSIzRFRoHctcCoCjCBEeRY YcTXznXXBmHHI4YHgnFUSxPBKiFF8RWsRhWVFwWDo9 LEGxXVStTDEpet1OUUVhUXDpABZ9XHSlZOCcPLNnHUylPBFiEYM4LnVdZCHkRGKxMU2SVjOnJBXgXYxs CQQfABIhYRDaof6TNLBjONYvBBC3GBWfNOHyBBDkMFkyVBWgSJO5MasxEHYwMDMxUV8CYbTeWMCuQiQp MNalZULoJBJtrb0IAYQfWFXtBMG2TNViWAPzKQEbHL saOFEjEONuWGp4OCZuISTpQD2CCkGyEKBxKrJ2XeYiCOVsTTZdno1EOGNeFBSrXUq7CVXeIYUqVZJhKL orBYKxXKDxJki2PCOpPJFyVI3TJzZkWQRnWxV7WyFlERZnMZNayy5YISVcXCJoPmxnZSRtJILkLYJzTQ byUPXbTXT6CVP0ZRLqTJPsYM1FGlLoDJhzMQEGYoj8 WGevI8w8KLPaAb6OY1Rma0DfQpOyJJLGMPrdWD8unsVbWPFbJm8KO3eLMvuqAUC1EUKcJqGcCsC4BQJa JZRkSLBnWSJzIBZ1RONwWI0lJBTcHUGyWBBkOwM3YGxdRjF3KzO7XjBsYTFoViDcLpLjWhTsCW3YWh5L StR7SVZ4bBOpQz5MEsTsQRFKTdWsSZ4DFGj= ID Date Data Source [id number] 12/10/2020 05:52:44 PM EDT [facility] Name Value Range Interpretation Code Description Data Lou rce(s) Supporting Document(s) Consultation [facility] VDWXZr1jMqLMKmSj71/BTOkcNXJwr6IgDMvqIGy9ZJirXPXxB4ZyRHG6rN1mOSI3GIjOMoYiYxLyTnOr lbm [file] ICAgICAgICAgICAgICAgICAgICAgICAgICAgICAgICAgICAgICAgICAgICAgICAgICAgICAgICAgICAg ICAgICAgICAgICAgICAgICAgDQogICAgICAgICAgICAgICAgICAgICAgICAgICAgICAgICAgICAgICAg ICAgICAgICAgICAgICAgICAgICAgICAgICAgICAgIC AgICAgICAgICAgICAgICAgICAgICAgICAgICAgDQogICAgICAgICAgICAgICAgICAgICAgICAgICAgIC AgICAgICAgICAgICAgICAgICAgICAgICAgICAgICAgICAgICAgICAgICAgICAgICAgICAgICAgICAgIC AgICAgICAgICAgDQogICAgICAgICAgICAgICAgICAg ICAgICAgICAgICAgICAgICAgICAgICAgICAgICAgICAgICAgICAgICAgICAgICAgICAgICAgICAgICAg ICAgICAgICAgICAgICAgICAgICAgDQogICAgICAgICAgICAgICAgICAgICAgICAgICAgICAgICAgICAg ICAgICAgICAgICAgICAgICAgICAgICAgICAgICAgIC AgICAgICAgICAgICAgICAgICAgICAgICAgICAgICAgDQogICAgICAgICAgICAgICAgICAgICAgICAgIC AgICAgICAgICAgICAgICAgICAgICAgICAgICAgICAgICAgICAgICAgICAgICAgICAgICAgICAgICAgIC AgICAgICAgICAgICAgDQogICAgICAgICAgICAgICAg ICAgICAgICAgICAgICAgICAgICAgICAgICAgICAgICAgICAgICAgICAgICAgICAgICAgICAgICAgICAg ICAgICAgICAgICAgICAgICAgICAgICAgDQogICAgICAgICAgICAgICAgICAgICAgICAgICAgICAgICAg ICAgICAgICAgICAgICAgICAgICAgICAgICAgICAgIC AgICAgICAgICAgICAgICAgICAgICAgICAgICAgICAgICAgDQogICAgICAgICAgICAgICAgICAgICAgIC AgICAgICAgICAgICAgICAgICAgICAgICAgICAgICAgICAgICAgICAgICAgICAgICAgICAgICAgICAgIC AgICAgICAgICAgICAgICAgDQogICAgICAgICAgICAg ICAgICAgICAgICAgICAgICAgICAgICAgICAgICAgICAgICAgICAgICAgICAgICAgICAgICAgICAgICAg BFAnBZYmZEWpAZZxEFQwKGNmAOIiQZFvHWJfJOt1A0xbPPWmWPRnEW5fRPk3Hq1+VDnBVaUnZVB9zzWi cN2HWG4iz4JfWWlaSRKbi5MwRHv5JS4TNTSiJHrlYU 1SVGgsix7JRGDsHSTimZKKh0zlQyPjUWA7KRXuEpndBG9AXHMrS7ctnhGwQZWpPZTVFXxyOJLFJAcqCL PUTPVdXYWrRnYaIeSwDYBtPS0IJFVqK741pnYsLX0WHy3OZuTpYH8axe6ROjRqBKXyZsvKZfx8GIdyUW 0SdGVnwGJsRXZaYCMXAkRjL4sba8HbOqRcEETOGPfi MQ2Tk0RowWHxGUm+Bw3PQB1si9OrDWcvOOPoWP8ngk7XEPwTEmDoS6PilUzwZBGpiyB7iNXuODW1YTLw c0fclBUTpO1nbtxfEBYXTqBuxXD7HmDnZcJpBoCpEIX4PPOrLA0kUDmsJB7LNRQ1BLrcYSYtINTiR7tF XjXsBFAbBcQvsPmvCA2QZyNfC0RuyvKcvTQtBgSvWU INCj4+XQxodoQbEijNBkE6QWRnh0ErHEo2ES3SBGMqKVkkWM3IOPJqgK0zCWefUB1ZHeAsUDXnKCYKHa PsY07zvJPfJIk6U9OzTkYdZFImOborLKQvRHfkErJsGCHjPmWqHTbtCY3+ID4+DSxdTT2VDRyvtnBbCE DwJe8UJDFrSOEnYQ6tCHNnEQPzP7J1iYzbUMQLOpSx B8mfmegpYM5fFQBiT404cJtxevYhLRYoIXJqYu7CWTYpHWL4BMOksTPgNpTlYUWUYQlqIA9OsOYpMRG2 tU3wKLxhQAFyZZNyE7gTGhCdiZpnDI93pBylveJsgVSbNUr+Ki3VIA5zv2YhKBp1wmVbMFkyKUI4EAqv QMUsOBHfNJDiSGO8VNT2AZATNiBkBYHrETViHRvlZP LhMLVnff9CYHPqNEEyICK5AoOpJWRlMEJtIAvuNIWxMHT0PQQ4TBZqLXHeIV7PIrRwOWEsTCLiVEsoAO QrGEMndc2CBHIsJWEwBqBjDhWnAEXsGCWgCJrmYYQoWLUbVCG3UFTdXXQkWL6CGaVhLERqOGhsBDUfUE BxFHRfnv0OPHSmKDSdWiNgQNOnYZNgIYBvKCqdTCDm AKChHiL4MSMwXAUvNX1ZMnLpHARgFJF1EjHcUACeFNUzqu8ROWXsVLJkTxb1DQXjMMZxIQCuISvnMPBn QAI0FNvzTIFdDUTtRQ0WPqPbLWGaVkHlAUFuLXWqLHNbsa1AMFWrBFQrQBOuToRzLAZuOFJrIMnfEIPz RGIxRzX6BPNfVJWiFS7HJkZrIROsTnW6PkHaVLKaRE Rbyq8GDLXpBTWaLIy9QsNrYGFmDEBfBUvpCTKmNLYgKaU0NRZnVNEgDA4KThKrQDIyXxP8TDbsFBEpOI Atww4DYRFrVSSgHfL3TLEbPRRtJCXjZDqwHNGpFIK1UTI5OWDtLKMgSA6NTeLfRKJjVzPrBURsBPKfRJ Aobl7WAWMvCTCeHSIvASKsOCOcPWMvGCbeCQAuMIO4 BAUwHLGrLYRcLV7XWqCkGQUeXvZqGbtcJERvOQKnww0KIPPjNOBkTqE8EbNcBRTnYXWxIPvxEVAqRMH2 NAs5SLTkHYDsNK5YPyEgCXYvAfV5XoBcZRRdZROftv8VFVXhMYYmSoD5IEWjILKzQMGlVNxwLZQtWHQ7 QRW4YQSeGTVwHI0NMgMuNIUzPhqsYGEwOAIuFHXthd 6SGPCxJOQzYZG5FHThIQXvQCNlKWwxLHMkHHT8AOJ6JPCjUKApGH8DDkSqVRClHOZhUUhnDWChYLZish 1GABXsLMN3ZQG2GaKdDYZpWRVtOEo7mwBntXYdVGu2BF8JC3KlsfKoCqNPNj4Cf700NDI7WYQkNh4NI3 scFp2eSOGwSYGLJg1LOAc3TCecLCFwHRE0JAC6GlUh IOazIkjqXIL7MZB6ANW5NFM+XJy2SYQsFYQ1IRRxJgS4FEWgA9OeUDNiIwc7AXOyEFr3RN0yKUYAMu6+ NJipjJLukGtvYGJTHbQlXMD4ZQgcLOWZIj9K ID Date Data Source [id number] 12/10/2020 06:22:48 PM EDT [facility] Name Value Range Interpretation Code Description Data Lou rce(s) Supporting Document(s) Leukocytes [#/volume] in Blood by Automated count 8.4 10*3/uL 4-10 [facility] Erythrocytes [#/volume] in Blood by Automated count 3.48 10*6/uL 4.6- 6.1 L [facility] Hemoglobin [Mass/volume] in Blood 9.7 g/dL 13.5-18 L [facility] Hematocrit [Volume Fraction] of Blood by Automated count 29.9 % 4 1-53 L [facility] Erythrocyte mean corpuscular volume [Entitic volume] by Auto mated count 85.9 fL 80-96 [facility] Erythrocyte mean corpuscular hemoglobin [Entitic mass] by Automated count 27.9 pg 27-33 [facility] Erythrocyte mean corpuscular hemoglobin concentration [Mass/volume] by Automated count 32.5 g/dL [facility].0-[facility] [Ratio] by Automated count 17.3 % 11.5-14.5 H [facility] Platelets [#/volume] in Blood by Automated count 127 10*3/uL 150-400 L [facility] ID Date Data Source [id number] [facility] Interpretation Code Description Data Lou rce(s) Supporting Document(s) Bicarbonate [Moles/volume] in Serum 22 mmol/L 22-29 [facility] Chloride [Moles/volume] in Serum or Plasma 102 mmol/L 98-107 [facility] Creatinine [Mass/volume] in Serum or Plasma 0.54 mg/dL 0.70-1.20 L [facility] Glucose [Mass/volume] in Serum or Plasma 84 mg/dL 70-140 [facility] Potassium [Moles/volume] in Serum or Plasma 3.9 mmol/L 3.4-5.1 [facility] Sodium [Moles/volume] in Serum or Plasma 132 mmol/L 136-145 L [facility] Urea nitrogen [Mass/volume] in Serum or Plasma 7 mg/dL 6-20 [facility] Anion gap 3 in Serum or Plasma 8 mmol/L 8-15 [facility] Osmolality of Serum or Plasma by calculation 271 mosm/kg 275-300 L [facility] Creatinine/Urea nitrogen [Mass Ratio] in Serum or Plasma 13 [facility] Calcium [Mass/volume] in Serum or Plasma 7.9 mg/dL 8.6-10.0 L [facility] Glomerular filtration rate/1.73 sq M pre dicted among non-blacks [Volume Rate/Area] in Serum or Plasma by Creatinine-based formula (MDRD) >6 0 [facility] Glomerular filtration rate/1.73 sq M pre dicted among blacks [Volume Rate/Area] in Serum or Plasma by Creatinine-based formula (MDRD) >60 [facility] ID Date Data Source [id number] 12/10/2020 10:56:25 AM [facility] Name Value Range Interpretation Code Description Data Lou rce(s) Supporting Document(s) Calcium.ionized [Moles/volume] in Arterial blood 1.08 mmol/L 1.13-1.3 2 [facility] ID Date Data Source [id number] 12/10/2020 10:55:28 AM [facility] Name Value Range Interpretation Code Description Data Lou rce(s) Supporting Document(s) Leukocytes [#/volume] in Blood by Automated count 6.5 10*3/uL 4-10 [facility] Erythrocytes [#/volume] in Blood by Automated count 3.30 10*6/uL 4.6- 6.1 [facility] Hemoglobin [Mass/volume] in Blood 9.2 g/dL 13.5-18 [facility] Hematocrit [Volume Fraction] of Blood by Automated count 28.1 % 4 1-53 L [facility] Erythrocyte mean corpuscular volume [Entitic volume] by Auto mated count 85.3 fL 80-96 [facility] Erythrocyte mean corpuscular hemoglobin [Entitic mass] by Automated count 27.8 pg 27-33 [facility] Erythrocyte mean corpuscular hemoglobin concentration [Mass/volume] by Automated count 32.7 g/dL 32.0-36.0 [facility] Erythrocyte distribution width [Ratio] by Automated count 17.3 % 11.5-14.5 H [facility] Platelets [#/volume] in Blood by Automated count 110 10*3/uL 150-400 L [facility] ID Date Data Source [id number] 12/10/2020 06:01:23 AM [facility] Name Value Range Interpretation Code Description Data Lou rce(s) Supporting Document(s) Magnesium [Mass/volume] in Serum or Plasma 2.2 mg/dL 1.6-2.6 [facility] ID Date Data Source [id number] 12/10/2020 06:01:23 AM [facility] Name Value Range Interpretation Code Description Data Lou rce(s) Supporting Document(s) Phosphate [Mass/volume] in Serum or Plasma 3.1 mg/dL 2.5-4.5 [facility] ID Date Data Source [id number] 12/10/2020 06:01:23 AM [facility] Name Value Range Interpretation Code Description Data Lou rce(s) Supporting Document(s) Albumin [Mass/volume] in Serum or Plasma by Bromocresol green (BCG) dye binding method 2.3 g/dL 3.5-5.2 L [facility] Bilirubin.total [Mass/volume] in Serum or Plasma 1.2 mg/dL <1.2 H [facility] Calcium [Mass/volume] in Serum or Plasma 7.5 mg/dL 8.6-10.0 L [facility] Chloride [Moles/volume] in Serum or Plasma 102 mmol/L 98-107 [facility] Creatinine [Mass/volume] in Serum or Plasma 0.57 mg/dL 0.70-1.20 L [facility] Glucose [Mass/volume] in Serum or Plasma 88 mg/dL 70-140 [facility] Alkaline phosphatase [Enzymatic activity/volume] in Serum or Plasma 104 U/L 40-129 [facility] Potassium [Moles/volume] in Serum or Plasma 3.8 mmol/L 3.4-5.1 [facility] Protein [Mass/volume] in Serum or Plasma 4.7 g/dL 6.4-8.3 L [facility] Sodium [Moles/volume] in Serum or Plasma 129 mmol/L 136-145 L [facility] Aspartate aminotransferase [Enzymatic activity/volume] in Serum or Plasma 145 U/L <40 H [facility] Urea nitrogen [Mass/volume] in Serum or Plasma 8 mg/dL 6-20 [facility] Osmolality of Serum or Plasma by calculation 265 mosm/kg 275-300 L [facility] Creatinine/Urea nitrogen [Mass Ratio] in Serum or Plasma 14 [facility] Bicarbonate [Moles/volume] in Serum 20 mmol/L 22-29 L [facility] Alanine aminotransferase [Enzymatic activity/volume] in Seru m or Plasma 54 U/L <41 H [facility] Anion gap 3 in Serum or Plasma 6 mmol/L 8-15 L [facility] Glomerular filtration rate/1.73 sq M pre dicted among non-blacks [Volume Rate/Area] in Serum or Plasma by Creatinine-based formula (MDRD) >6 0 [facility] Glomerular filtration rate/1.73 sq M pre dicted among blacks [Volume Rate/Area] in Serum or Plasma by Creatinine-based formula (MDRD) >60 [facility] ID Date Data Source [id number] 12/10/2020 01:34:51 AM EDT [facility] Name Value Range Interpretation Code Description Data Lou rce(s) Supporting Document(s) Leukocytes [#/volume] in Blood by Automated count 7.5 10*3/uL 4-10 [facility] Erythrocytes [#/volume] in Blood by Automated count 2.95 10*6/uL 4.6- 6.1 L [facility] Hemoglobin [Mass/volume] in Blood 8.1 g/dL 13.5-18 L [facility] Hematocrit [Volume Fraction] of Blood by Automated count 25.3 % 4 1-53 L [facility] Erythrocyte mean corpuscular volume [Entitic volume] by Auto mated count 85.9 fL 80-96 [facility] Erythrocyte mean corpuscular hemoglobin [Entitic mass] by Automated count 27.5 pg 27-33 [facility] Erythrocyte mean corpuscular hemoglobin concentration [Mass/volume] by Automated count 32.1 g/dL 32.0-36.0 [facility] Erythrocyte distribution width [Ratio] by Automated count 17.2 % 11.5-14.5 H [facility] Platelets [#/volume] in Blood by Automated count 105 10*3/uL 150-400 L [facility] ID Date Data Source [id number] 12/09/2020 06:15:27 PM EDT [facility] Name Value Range Interpretation Code Description Data Lou rce(s) Supporting Document(s) Consultation [facility] [id number]/DGGtbMMMgp7CgZYurVDl0GNcuNMIvA9MlZFO6uF7tFYC5TYpMCiNcPiIcLnSa lbm [file] [id number]+PM4aTQa+Gh3Bo3OafdU2etJoDKtqLRs4Nm8EMEDFK3OHAg== ID Date Data Source [id number] 12/09/2020 05:06:16 PM EDT [facility] Name Value Range Interpretation Code Description Data Lou [facility](s) Supporting Document(s) Leukocytes [#/volume] in Blood by Automated count 6.0 10*3/uL 4-10 [facility] Erythrocytes [#/volume] in Blood by Automated count 3.13 10*6/uL 4.6- 6.1 L [facility] Hemoglobin [Mass/volume] in Blood 8.7 g/dL 13.5-18 L [facility] Hematocrit [Volume Fraction] of Blood by Automated count 26.6 % 4 1-53 L [facility] Erythrocyte mean corpuscular volume [Entitic volume] by Auto mated count 84.9 fL 80-96 [facility] Erythrocyte mean corpuscular hemoglobin [Entitic mass] by Automated count 27.9 pg 27-33 [facility] Erythrocyte mean corpuscular hemoglobin concentration [Mass/volume] by Automated count 32.9 g/dL 32.0-36.0 [facility] width [Ratio] by Automated count 17.1 % 11.5-14.5 H [facility] Platelets [#/volume] in Blood by Automated count 100 10*3/uL 150-400 L [facility] ID Date Data Source [id number] 12/09/2020 12:45:01 PM EDT [facility] Name Value Range Interpretation Code Description Data Luo rce(s) Supporting Document(s) Glucose [Mass/volume] in Capillary blood by Glucometer 94 mg/dL 70- 140 [facility] ID Date Data Source [id number] 12/09/2020 11:21:01 AM [facility] US ABDOMEN LIMITED [id number] RESULTInte rpreted by:Jessica Lr DOStudy: ULTRASOUND ABDOMEN LIMITEDHISTORY: History of GI bleed and cirrhosis. Evaluate for ascites..Comparison:Prior ultrasound of 11/14/2020TECHNIQUE: Real-time sonographic images of the right upper quadrant of the abdomen were obtained.FINDINGS: Liver: Coarse nodularity is noted throughout the liver parenchyma. The liver is enlarged and measures 19 cm. There is no intrahepatic ductal dilatation. The main portal vein measures 0.8 cm in diameter.Common bile duct: Measures 0.3 cm. Gallbladder:There is no pericholecystic fluid. There is no thickening of the gallbladder wall; wall thickness is 0.8 cm. There is negative Onofre's sign as indicated by the technologist. The gallbladder is contracted.Pancreas:Within normal limitsRight kidney:Normal in echogenicity. No calcification, mass or hydronephrosis is seen. The right kidney measures 11.9 cm in length.No free fluid was seen in the abdomen. 0.9 cm stone/calcification is noted within the abdomen likely in Morison's pouch measuring 0.9 cmIMPRESSION:The liver is enlarged. Coarse nodularity of the liver is noted. No sonographic lesions detected.No ascites.0.9 cm stone/calcification noted in the abdomen likely within Morison's pouch. Further evaluation recommended.This document has been electronically signed by Jessica Lr DO on 12/09/2020 10:53 AM Name Value Range Interpretation Code Description Data Lou rce(s) Supporting Document(s) ID Date Data Source [id number] 12/09/2020 11:01:04 AM [facility] Name Value Range Interpretation Code Description Data Lou rce(s) Supporting Document(s) Calcium.ionized [Moles/volume] in Arterial blood 1.13 mmol/L 1.13-1.3 2 [facility] ID Date Data Source [id number] 12/14/2020 10:43:44 AM [facility] Service Cmnt XXX-Imp : R ARMMicroorganis m XXX Cult : No growth 5 days Name Value Range Interpretation Code Description Data Lou rce(s) Supporting Document(s) ID Date Data Source [id number] 12/09/2020 06:24:47 AM [facility] Value Range Interpretation Code Description Data Lou rce(s) Supporting Document(s) Leukocytes [#/volume] in Blood by Automated count 6.9 10*3/uL 4-10 [facility] Erythrocytes [#/volume] in Blood by Automated count 2.54 10*6/uL 4.6- 6.1 L [facility] Hemoglobin [Mass/volume] in Blood 7.0 g/dL 13.5-18 L [facility] Hematocrit [Volume Fraction] of Blood by Automated count 21.3 % 4 1-53 L [facility] Erythrocyte mean corpuscular volume [Entitic volume] by Auto mated count 83.7 fL 80-96 [facility] Erythrocyte mean corpuscular hemoglobin [Entitic mass] by Automated count 27.4 pg 27-33 [facility] Erythrocyte mean corpuscular hemoglobin concentration [Mass/volume] by Automated count 32.7 g/dL 32.0-36.0 [facility] width [Ratio] by Automated count 17.1 % 11.5-14.5 H [facility] Platelets [#/volume] in Blood by Automated count 107 10*3/uL 150-400 L [facility] ID Date Data Source [id number] 12/09/2020 06:41:24 AM [facility] Name Value Range Interpretation Code Description Data Lou rce(s) Supporting Document(s) Albumin [Mass/volume] in Serum or Plasma by Bromocresol green (BCG) dye binding method 2.1 g/dL 3.5-5.2 [facility] Bil[facility].total [Mass/volume] in Serum or Plasma 1.1 mg/dL <1.2 [facility] Calcium [Mass/volume] in Serum or Plasma 7.2 mg/dL 8.6-10.0 [facility] Chloride [Moles/volume] in Serum or Plasma 106 mmol/L 98-107 [facility] Creatinine [Mass/volume] in Serum or Plasma 0.47 mg/dL 0.70-1.20 [facility] Glucose [Mass/volume] in Serum or Plasma 81 mg/dL 70-140 [facility] Alkaline phosphatase [Enzymatic activity/volume] in Serum or Plasma 104 U/L 40-129 [facility] Potassium [Moles/volume] in Serum or Plasma 4.0 mmol/L 3.4-5.1 [facility] Protein [Mass/volume] in Serum or Plasma 4.3 g/dL 6.4-8.3 [facility] Sodium [Moles/volume] in Serum or Plasma 131 mmol/L 136-145 [facility] Aspartate aminotransferase [Enzymatic activity/volume] in Serum or Plasma 52 U/L <40 H [facility] Urea nitrogen [Mass/volume] in Serum or Plasma 14 mg/dL 6-20 [facility] Osmolality of Serum or Plasma by calculation 272 mosm/kg 275-300 [facility] Creatinine/Urea nitrogen [Mass Ratio] in Serum or Plasma 29 [facility] Bicarbonate [Moles/volume] in Serum 19 mmol/L 22-29 L [facility] Alanine aminotransferase [Enzymatic activity/volume] in Seru m or Plasma 19 U/L <41 [facility] Anion gap 3 in Serum or Plasma 6 mmol/L 8-15 L [facility] Glomerular filtration rate/1.73 sq M pre dicted among non-blacks [Volume Rate/Area] in Serum or Plasma by Creatinine-based formula (MDRD) >6 0 [facility] Glomerular filtration rate/1.73 sq M pre dicted among blacks [Volume Rate/Area] in Serum or Plasma by Creatinine-based formula (MDRD) >60 [facility] ID Date Data Source [id number] 12/09/2020 09:48:45 AM EDT [facility] Name Value Range Interpretation Code Description Data Lou rce(s) Supporting Document(s) Magnesium [Mass/volume] in Serum or Plasma 1.7 mg/dL 1.6-2.6 [facility] ID Date Data Source [id number] [facility] Interpretation Code Description Data Lou rce(s) Supporting Document(s) Phosphate [Mass/volume] in Serum or Plasma 2.3 mg/dL 2.5-4.5 L [facility] ID Date Data Source [id number] 12/09/2020 02:18:20 AM EDT [facility] Name Value Range Interpretation Code Description Data Lou rce(s) Supporting Document(s) Color of Urine [facility] Clarity of Urine [facility] Specific gravity of Urine by Refractometry automated 1.010 1.003 -1.030 [facility] pH of Urine by Automated test strip 7.0 5.0-8.0 [facility] Protein [Mass/volume] in Urine by Automated test strip Neg [facility] Glucose [Mass/volume] in Urine by Automated test strip Neg [facility] Ketones [Mass/volume] in Urine by Automated test strip Neg [facility] Bilirubin.total [Presence] in Urine by Automated test strip Negative [facility] Hemoglobin [Presence] in Urine by Automated test strip Neg [facility] Leukocyte esterase [Presence] in Urine by Automated test strip Negative [facility] Nitrite [Presence] in Urine by Automated test strip Negati [facility] Leukocytes [#/area] in Urine sediment by Automated count 0 /HPF 0 -5 [facility] Erythrocytes [#/area] in Urine sediment by Automated count 0 /HPF 0-3 [facility] Service comment [facility] ID Date Data Source [id number] 12/14[facility]2020 [facility]43[facility]-Imp : L ARMMicroorganis m XXX Cult : No growth 5 days Name Value Range Interpretation Code Description Data Lou rce(s) Supporting Document(s) ID Date Data Source [id number] [facility]2020 [facility]07[facility] Name Value Range Interpretation Code Description Data Lou rce(s) Supporting Document(s) ABO and Rh group [Type] in Blood [facility] Blood group antibody screen [Presence] in Serum or Plasma [facility] Performed at [facility], Raquel brody Geeta, [id number] ID Date Data Source [id number] 12/08/2020 11:59:00 PM EDT [facility] Name Value Range Interpretation Code Description Data Lou rce(s) Supporting Document(s) SARS-CoV-2 RNA 2019 nCoV Real-Time RT-PCR: NOT DETECTED [facility] This lab was ordered by [facility] and reported by [facility]. ID Date Data Source [id number] 12/09/2020 09:30:29 AM EDT [facility] Name Value Range Interpretation Code Description Data Lou rce(s) Supporting Document(s) Specimen source [Identifier] of Unspecified specimen [facility] SARS-CoV-2 RNA 2019 nCoV Real-Time RT-PCR: NOT DETECTED [facility] Assay Performed [facility] Patients first test for [facility] Patient employed in healthcare setting [facility] Patient has symptoms related to [facility] When did you start to experience these symptoms [Date and time] [Phen X] [facility] Patient was hospitalized because of this [facility] patient was admitted to ICU for [facility] Patient resides in a congregate care setting [facility] status [facility] ID Date Data Source [id number] 12/09/2020 12:23:05 AM EDT [facility] Name Value Range Interpretation Code Description Data Lou rce(s) Supporting Document(s) Leukocytes [#/volume] in Blood by Automated count 11.0 10*3/uL 4-10 H [facility] Erythrocytes [#/volume] in Blood by Automated count 2.48 10*6/uL 4.6- 6.1 L [facility] Hemoglobin [Mass/volume] in Blood 6.6 g/dL 13.5-18 L [facility] Hematocrit [Volume Fraction] of Blood by Automated count 20.1 % 4 1-53 [facility] Called to and read back by fito starr rn 6i [id number] at 0022 by 1522 Erythrocyte mean corpuscular volume [Entitic volume] by Auto mated count 81.1 fL 80-96 [facility] Erythrocyte mean corpuscular hemoglobin [Entitic mass] by Automated count 26.6 pg 27-33 L [facility] Erythrocyte mean corpuscular hemoglobin concentration [Mass/volume] by Automated count 32.7 g/dL 32.0-36.0 [facility] Erythrocyte distribution width [Ratio] by Automated count 16.2 % 11.5-14.5 H [facility] Platelets [#/volume] in Blood by Automated count 131 10*3/uL 150-400 L [facility] ID Date Data Source [id number] 12/09/2020 12:31:19 AM [facility] Value Range Interpretation Code Description Data Lou rce(s) Supporting Document(s) aPTT in Platelet poor plasma by Coagulation assay 31.0 s 24.0-33. 0 [facility] ID Date Data Source [id number] 12/09/2020 12:31:19 AM [facility] Value Range Interpretation Code Description Data Lou rce(s) Supporting Document(s) Prothrombin time (PT) 16.9 s 11.6-14.0 H [facility] INR in Platelet poor plasma by Coagulation assay 1.44 [facility] Routine intensity oral anticoagulation I NR is typically 2.0-3.0. Target INR must be clinically individualized. ID Date Data Source [id number] 12/09/2020 12:52:30 AM [facility] Value Range Interpretation Code Description Data Lou rce(s) Supporting Document(s) Lipase [Enzymatic activity/volume] in Serum or Plasma 226 U/L 13-6 0 H [facility] ID Date Data Source [id number] 12/09/2020 12:52:30 AM [facility] Value Range Interpretation Code Description Data Lou rce(s) Supporting Document(s) Albumin [Mass/volume] in Serum or Plasma by Bromocresol green (BCG) dye binding method 2.4 g/dL 3.5-5.2 L [facility] Bilirubin.total [Mass/volume] in Serum or Plasma 1.0 mg/dL <1.2 [facility] Calcium [Mass/volume] in Serum or Plasma 7.9 mg/dL 8.6-10.0 [facility] Chloride [Moles/volume] in Serum or Plasma 97 mmol/L 98-107 L [facility] Creatinine [Mass/volume] in Serum or Plasma 0.49 mg/dL 0.70-1.20 L [facility] Glucose [Mass/volume] in Serum or Plasma 92 mg/dL 70-140 [facility] Alkaline phosphatase [Enzymatic activity/volume] in Serum or Plasma 121 U/L 40-129 [facility] Potassium [Moles/volume] in Serum or Plasma 3.9 mmol/L 3.4-5.1 [facility] Protein [Mass/volume] in Serum or Plasma 4.8 g/dL 6.4-8.3 L [facility] Sodium [Moles/volume] in Serum or Plasma 125 mmol/L 136-145 L [facility] Aspartate aminotransferase [Enzymatic activity/volume] in Serum or Plasma 52 U/L <40 H [facility] Urea nitrogen [Mass/volume] in Serum or Plasma 17 mg/dL 6-20 [facility] Osmolality of Serum or Plasma by calculation 261 mosm/kg 275-300 L [facility] Creatinine/Urea nitrogen [Mass Ratio] in Serum or Plasma 35 [facility] Bicarbonate [Moles/volume] in Serum 22 mmol/L 22-29 [facility] Alanine aminotransferase [Enzymatic activity/volume] in Seru m or Plasma 21 U/L <41 [facility] Anion gap 3 in Serum or Plasma 6 mmol/L 8-15 L [facility] Glomerular filtration rate/1.73 sq M pre dicted among non-blacks [Volume Rate/Area] in Serum or Plasma by Creatinine-based formula (MDRD) >6 0 [facility] Glomerular filtration rate/1.73 sq M pre dicted among blacks [Volume Rate/Area] in Serum or Plasma by Creatinine-based formula (MDRD) >60 [facility] ID Date Data Source [id number] 12/08/2020 06:44:00 PM EDT [facility] Name Value Range Interpretation Code Description Data Lou rce(s) Supporting Document(s) SARS coronavirus 2 RNA [Presence] in Res piratory specimen by TOYA with probe detection NEGATIVE [facility] This lab was ordered by [facility] a nd reported by [facility]. ID Date Data Source [id number] 11/26/2020 08:42:[address] [facility] Name Value Range Interpretation Code Description Data Lou rce(s) Supporting Document(s) ED Provider Note [facility] CLSQOk3gHqCEGjRo55/ZDBysIJTgd1CjZYgvVMk7ULttARFjH3TxMSK1uD1jECW9ELsSLeVkHdPeWpS7 lbm [file] AwMzQzNiAwMDAwMCBuDQowMDAwMDAzNjQwIDAwMDAw JF8VWpZjPKPaAFD6NjQkCDKwIEXckl1LOYYaEPEhRmZ3WVGqPKLdQZBlVMmtTVIaMIG4FxQ4CCOvYMVb BI2CAbRdVGSmUYw0MSTrCIIxVCIghj8VQPQfYYDnMuNjRQNmNWSkRXXtEFacSWSiXOMxQuY9IEYvVPPf MU3GAcAuFCCnLRY6SBRrVSTwRDTjbq2ASLRnQXOlRr RsLGWwWMGcUKVuWEtcSOZaMCK0IYTdDHEuFMAmDM2MFxNiBILnQWt0TVzmSGMaFEVtry5DDTPmZIMcHt L4ISEqGPPcWTVeVSroXWAkLQSyBwS3KWAnEQMvRB4XRjAyWZKpBsWoNinlSIXvZHSfyf3NMHUcTAYrAe H3MRYsZXShSYXqPSzwFYOeMXN3XcuoTBSwPAOnYX9O MgRbLYBgZxj5HIAqWPNbWOGmqq1XMWCyJXQlOyUlYjOfCTJjNEOgPFdeRPUaKFYbJAZkKCEdLAGkPN8D NyMjLBEpFyW4KHLwFKDqJEPojb6XWRLcUSTzMQzhRZJyCQSdRTKcXMfbQQRhECM6JryfLIGuPLQeQK5H UgHqILDyJmw7DIjiMJAtSMDdha9XGFVeMCH0HBu7GL AmMHInFMSeIVlzKDMhYHUePILyKMIrFSSyFJ4ZXlScVCJhVUCzUbVoQRKoNXOrqr6FYGMrMTD8PtLdZH UzQQQvKFXkIKmlMTAfWIViZKWxEMIoNHCjMJ1XPfWkGTArRIUwYoApNPLpBPPpdi1FRITaEBY0UwA1Uu DqBOUvXDBePKzgZJCaYFMzDvVoSSUlFAUeUK6CAfZm UALmHFVmOzEeHBZoLXVldt0WNLZxLDG7TAA1MbMxKPLaHGOgSYbhGWBhEOF1EfShPCQgRLPtTO3HAsFl QNSqUBZ6VVXdWULpWLBccd1ZGZWeXDE1PsU3IxLjTPThFURjQVihIACrHEP7QGqlYWNnRWJzHL3CDyYh ZZSjYVshDvYjMHQgJUVeqc6GFNXxYPF9NpQ4LlJdGC RuHCJeKMjvDUDxLHW7VjDhLUXcHCDaNE3PCoVaWVXmNWymCQJlDEYoISNath3XVNLiZUF9XBE5OiNlII QnRFOzUHvrQLMxGAM1WGA3XGCyYQAgFV4QUdRnYJNjGUk1OppaSAHzPEGlhe6YBUZkNQP6XVm7XyErXY NnKSYhLXyjNMDaCLOpEHA1TWUvHSMxXX2PAbFtZBPy YqUaJHwfSEHjKPOebs5JsRAtwBzazh3DOHxZZb8ZwLgxCGLlYZdhYo0amQZ9OfXxVXXKXi8DqsZsFOSz HMAEGOjhYWDnHFVfTAF9ALTxHvE0HTGcMPNoLCA6EItdN7J6WmnkBLR2XpB5R5I4VvswDoF0MjnuJTWu VUS2CxboLDRqViL5YBR6Asu+SE0yCVk+Ln1Cf3VmdsQ2gdRuZYb0CSS6Hd0TWTOKY9SEIs== ID Date Data Source [id number] 11/17/2020 11:27:03 PM EDT [facility] Name Value Range Interpretation Code Description Data Lou rce(s) Supporting Document(s) Discharge Summary [facility] QFJKOp0iSuNDYyNz41/IKOhhKGZfk5EyHIbkTAm4KOzdXLKaT3DhKSU1bW5eXFS2NYuCBuZmVoNaZyVu lbm [file] J5OyY9MIhmIb7xKPLTTe3+DTvfjNQvmIwzXXDIHbR6AVF7WHppNSNNIp1D ID Date Data Source [id number] 11/17/2020 03:42:[address] [facility] Name Value Range Interpretation Code Description Data Lou rce(s) Supporting Document(s) Progress Note [facility] CPPEVl0kSdMQWgHw15/LXOuhXKGbv6VxJFvzJCq6JHhoZKXoI2VuETC9uZ3uZWL4XCbAMuBdZbUeAhMt lbm [file] YNCg== ID Date Data Source [id number] 11/17/2020 03:24:34 PM EDT [facility] Name Value Range Interpretation Code Description Data Lou rce(s) Supporting Document(s) Consultation [facility] [id number]/XPJceDMFlz7YzPYqvHJu3UUkfUAQeO6ZmMDS1fL3nWHK4YKeOHzDlRaJpVzAl lbm [file] JbJVZ0I3VjBYYkUGqeDRJ8ZQclWDHxJZMnFqCdEM 4KSq3NOwS7RCE3rJSbXo2BKuX4XZCGWlXzUU2AROd= ID Date Data Source [id number] 11/17/2020 02:27:40 PM EDT [facility] Name Value Range Interpretation Code Description Data Lou rce(s) Supporting Document(s) Leukocytes [#/volume] in Blood by Automated count 8.2 10*3/uL 4-10 [facility] Erythrocytes [#/volume] in Blood by Automated count 3.30 10*6/uL 4.6- 6.1 L [facility] Hemoglobin [Mass/volume] in Blood 8.8 g/dL 13.5-18 L [facility] Hematocrit [Volume Fraction] of Blood by Automated count 26.5 % 4 1-53 L [facility] Erythrocyte mean corpuscular volume [Entitic volume] by Auto mated count 80.3 fL 80-96 [facility] Erythrocyte mean corpuscular hemoglobin [Entitic mass] by Automated count 26.6 pg 27-33 L [facility] Erythrocyte mean corpuscular hemoglobin concentration [Mass/volume] by Automated count 33.1 g/dL 32.0-36.[facility] width [Ratio] by Automated count 19.2 % 11.5-14.5 H [facility] Platelets [#/volume] in Blood by Automated count 203 10*3/uL 150-400 [facility] Confirmed ID Date Data Source [id number] 11/17/2020 09:20:32 AM EDT [facility] US ABDOMEN LIMITED [id number] RESULTInte rpreted by:ALEX CarringtonROCEDURE INFORMATION: Exam: US Abdomen, Limited; Right Upper Quadrant Exam date and time: 11/14/2020 8:05 AM Age: 39 years old Clinical indication: Gastrointestinal hemorrhage, unspecified; Screening exam; Other: Cirrhosis; Additional info: To evaluate for cirrhosis. TECHNIQUE: Imaging protocol: US abdomen. Real time ultrasound with image documentation. Limited exam focused on the right upper quadrant. COMPARISON: No relevant prior studies available. FINDINGS: Liver: Hepatomegaly. Liver measures 20.6 cm. Heterogeneous increased echogenicity in the liver which has nodular contour. Series 1, image 13054 indicates normal portal hepatopetal flow of the main portal vein which measures upper normal at 1.3 cm. .. Gallbladder: Trace pericholecystic fluid and gallbladder wall is slightly thickened at 3.1 mm. . The gallbladder has no calculi or sludge. . Technologist reports a negative Onofre's sign. Common bile duct: Common bile duct measures 1 mm. Pancreas: Pancreas is obscured by gas and cannot be evaluated. Right kidney: Right kidney measures 12.8 x 5.1 x 5.4 cm with a volume of 186 mL.There is no hydronephrosis, solid mass or calculi. Renal parenchyma measures 1.34 cm, low normal. Aorta: Aorta is obscured. Inferior vena cava: Inferior vena cava is unremarkable. Intraperitoneal space: No ascites. IMPRESSION: 1. Trace pericholecystic fluid and gallbladder wall is slightly thickened at 3.1 mm. Nonspecific findings which can be seen with any inflammation in the upper abdomen and hypoproteinemic status. 2. Pancreas is obscured by gas and cannot be evaluated. 3. Cirrhotic, enlarged liver.THIS DOCUMENT HAS BEEN ELECTRONICALLY SIGNED BY NOEMY HUDSON MDThis document has been electronically signed by Noemy Hudson MD on 11/17/2020 9:20 AM Name Value Range Interpretation Code Description Data Lou rce(s) Supporting Document(s) ID Date Data Source [id number] 11/17/2020 08:51:22 AM [facility] Name Value Range Interpretation Code Description Data [facility] Document(s) [facility] KKONOz6wOjFLFdMs51/JVGmhSDIzn7XqMZhvLSj0LWnsGXZnH9OsIPT9mL3kXPK0CQvDTaOjRlAaNwEq m [file] Zv1QScZ0YVC0iRBeAk8LGQnmNg8CBUVGU3CINw== ID Date Data Source [id number] 11/17/2020 08:31:25 AM EDT [facility] Name Value Range Interpretation Code Description Data Lou rce(s) Supporting Document(s) Glucose [Mass/volume] in Capillary blood by Glucometer 133 mg/dL 70- 140 [facility] ID Date Data Source [id number] 11/17/2020 07:48:05 AM EDT [facility] Name Value Range Interpretation Code Description Data Lou rce(s) Supporting Document(s) History and Physical [facility] [id number]/XQZysKYAdm9WtGEoyLEq3MKtzRSGiK2NhHFJ7rA9vAZC8UUlHDxGwVzDnAtYw lbm [file] top trimmer+KAGnsJUqRPMdSgaPnmXh3bN7rgCHqcC83AY7bS8AthQSR7+aB1fy0FpRF+72io0f8vPlO6qVMElJ [file] OTQUVc3E ID Date Data Source [id number] 11/17/2020 03:04:[address] [facility] Name Value Range Interpretation Code Description Data Lou rce(s) Supporting Document(s) Leukocytes [#/volume] in Blood by Automated count 7.4 10*3/uL 4-10 [facility] Erythrocytes [#/volume] in Blood by Automated count 3.00 10*6/uL 4.6- 6.1 L [facility] Hemoglobin [Mass/volume] in Blood 7.8 g/dL 13.5-18 L [facility] Hematocrit [Volume Fraction] of Blood by Automated count 24.0 % 4 1-53 L [facility] Erythrocyte mean corpuscular volume [Entitic volume] by Auto mated count 80.2 fL 80-96 [facility] Erythrocyte mean corpuscular hemoglobin [Entitic mass] by Automated count 26.1 pg 27-33 L [facility] Erythrocyte mean corpuscular hemoglobin concentration [Mass/volume] by Automated count 32.6 g/dL 32.0-36.0 [facility] width [Ratio] by Automated count 19.2 % 11.5-14.5 H [facility] Platelets [#/volume] in Blood by Automated count 165 10*3/uL 150-400 [facility] Differential cell count method - Blood [facility] Neutrophils/100 leukocytes in Blood by Automated count 62 % [facility] Lymphocytes/100 leukocytes in Blood by Automated count 13 % [facility] Monocytes/100 leukocytes in Blood by Automated count 21 % [facility] Eosinophils/100 leukocytes in Blood by Automated count 3 % [facility] Basophils/100 leukocytes in Blood by Automated count 1 % [facility] Neutrophils [#/volume] in Blood by Automated count 4.58 10*3/uL 1.8-7 .0 [facility] Lymphocytes [#/volume] in Blood by Automated count 0.99 10*3/uL 1.2-4 .0 L [facility] Monocytes [#/volume] in Blood by Automated count 1.58 10*3/uL 0-0.8 H [facility] Eosinophils [#/volume] in Blood by Automated count 0.22 10*3/uL 0-0.5 [facility] Basophils [#/volume] in Blood by Automated count 0.04 10*3/uL 0-0.2 [facility] Nucleated erythrocytes/100 leukocytes [Ratio] in Blood by Automated count 0 /100{WBCs} 0-0 [facility] ID Date Data Source [id number] 11/17/2020 03:21:33 AM [facility] Name Value Range Interpretation Code Description Data Lou rce(s) Supporting Document(s) Bicarbonate [Moles/volume] in Serum 27 mmol/L 22-29 [facility] Chloride [Moles/volume] in Serum or Plasma 97 mmol/L 98-107 L [facility] Creatinine [Mass/volume] in Serum or Plasma 0.44 mg/dL 0.70-1.20 L [facility] Glucose [Mass/volume] in Serum or Plasma 117 mg/dL 70-140 [facility] Potassium [Moles/volume] in Serum or Plasma 3.2 mmol/L 3.4-5.1 L [facility] Sodium [Moles/volume] in Serum or Plasma 132 mmol/L 136-145 L [facility] Urea nitrogen [Mass/volume] in Serum or Plasma 6 mg/dL 6-20 [facility] Anion gap 3 in Serum or Plasma 8 mmol/L 8-15 [facility] Osmolality of Serum or Plasma by calculation 273 mosm/kg 275-300 L [facility] Creatinine/Urea nitrogen [Mass Ratio] in Serum or Plasma 14 [facility] Calcium [Mass/volume] in Serum or Plasma 7.7 mg/dL 8.6-10.0 L [facility] Glomerular filtration rate/1.73 sq M pre dicted among non-blacks [Volume Rate/Area] in Serum or Plasma by Creatinine-based formula (MDRD) >6 0 [facility] Glomerular filtration rate/1.73 sq M pre dicted among blacks [Volume Rate/Area] in Serum or Plasma by Creatinine-based formula (MDRD) >60 [facility] ID Date Data Source [id number] 11/17/2020 02:46:49 AM [facility] Value Range Interpretation Code Description Data Lou rce(s) Supporting Document(s) Glucose [Mass/volume] in Capillary blood by Glucometer 132 mg/dL 70- 140 [facility] ID Date Data Source [id number] 11/16/2020 11:03:46 PM [facility] Value Range Interpretation Code Description Data Lou rce(s) Supporting Document(s) Glucose [Mass/volume] in Capillary blood by Glucometer 152 mg/dL 70- 140 H [facility] ID Date Data Source [id number] 11/16/2020 07:34:41 PM [facility] Value Range Interpretation Code Description Data Lou rce(s) Supporting Document(s) Glucose [Mass/volume] in Capillary blood by Glucometer 135 mg/dL 70- 140 [facility] ID Date Data Source [id number] 11/16/2020 05:29:34 PM [facility] Value Range Interpretation Code Description Data Lou rce(s) Supporting Document(s) Glucose [Mass/volume] in Capillary blood by Glucometer 90 mg/dL 70- 140 [facility] ID Date Data Source [id number] 11/16/2020 04:15:48 PM [facility] Value Range Interpretation Code Description Data Lou rce(s) Supporting Document(s) Glucose [Mass/volume] in Capillary blood by Glucometer 218 mg/dL 70- 140 [facility] ID Date Data Source [id number] 11/16/2020 03:39:03 PM [facility] Value Range Interpretation Code Description Data Lou rce(s) Supporting Document(s) Leukocytes [#/volume] in Blood by Automated count 8.0 10*3/uL 4-10 [facility] Erythrocytes [#/volume] in Blood by Automated count 3.42 10*6/uL 4.6- 6.1 [facility] Hemoglobin [Mass/volume] in Blood 8.9 g/dL 13.5-18 [facility] Hematocrit [Volume Fraction] of Blood by Automated count 27.6 % 4 1-53 [facility] Erythrocyte mean corpuscular volume [Entitic volume] by Auto mated count 80.8 fL 80-96 [facility] Erythrocyte mean corpuscular hemoglobin [Entitic mass] by Automated count 26.1 pg 27-33 [facility] Erythrocyte mean corpuscular hemoglobin concentration [Mass/volume] by Automated count 32.3 g/dL 32.0-36.0 [facility] E[facility]th[facility] distribution width [Ratio] by Automated count 19.1 % 11.5-14.5 H [facility] Platelets [#/volume] in Blood by Automated count 159 10*3/uL 150-400 [facility] Differential cell count method - Blood [facility] Neutrophils/100 leukocytes in Blood by Automated count 69 % [facility] Lymphocytes/100 leukocytes in Blood by Automated count 10 % [facility] Monocytes/100 leukocytes in Blood by Automated count 16 % [facility] Eosinophils/100 leukocytes in Blood by Automated count 4 % [facility] Basophils/100 leukocytes in Blood by Automated count 1 % [facility] Neutrophils [#/volume] in Blood by Automated count 5.58 10*3/uL 1.8-7 .0 [facility] Lymphocytes [#/volume] in Blood by Automated count 0.79 10*3/uL 1.2-4 .0 L [facility] Monocytes [#/volume] in Blood by Automated count 1.32 10*3/uL 0-0.8 H [facility] Eosinophils [#/volume] in Blood by Automated count 0.31 10*3/uL 0-0.5 [facility] Basophils [#/volume] in Blood by Automated count 0.04 10*3/uL 0-0.2 [facility] Nucleated erythrocytes/100 leukocytes [Ratio] in Blood by Automated count 0 /100{WBCs} 0-0 [facility] ID Date Data Source [id number] 11/16/2020 11:51:13 AM EDT [facility] Value Range Interpretation Code Description Data Lou rce(s) Supporting Document(s) Glucose [Mass/volume] in Capillary blood by Glucometer 106 mg/dL 70- 140 [facility] ID Date Data Source [id number] 11/16/2020 07:59:02 AM EDT [facility] Value Range Interpretation Code Description Data Lou rce(s) Supporting Document(s) Glucose [Mass/volume] in Capillary blood by Glucometer 119 mg/dL 70- 140 [facility] ID Date Data Source [id number] 11/16/2020 05:48:16 AM EDT [facility] Value Range Interpretation Code Description Data Lou rce(s) Supporting Document(s) Glucose [Mass/volume] in Capillary blood by Glucometer 101 mg/dL 70- 140 [facility] ID Date Data Source [id number] 11/19/2020 09:27:00 AM EDT [facility] Surgical Pathology ReportName: JEFRY MORINMRN: [id number] Number: [id number] Date: 11/16/2020 00:00Received Date: 11/16/2020 11:32Physician(s): RON LINARES MD OZDEN, NURI,MDCopy To:DONAL FUNEZ MDSpecimen(s) ReceivedA: Antrum biopsyClinical HistoryMelena.DiagnosisSTOMACH, ANTRUM, BIOPSY: MILD CHRONIC GASTRITIS. NO H. PYLORI IDENTIFIED. Electronically Signed By Kelle Ordaz MD, Attending Pathologist :27:42Professional services performed at [facility], [address] [place] [address]. Unless 'gross-only'is specified, the final diagnosis is based on a microscopic examination ofrepresentative sections of tissue.Gross DescriptionThe specimen is received in formalin and labeled with the patient's name,"Adelaida Morin" and "antrum". It consists of two soft dhaliwal tissue fragmentsmeasuring from 0.3 to 0.4 cm in greatest dimension. Totally submitted inone cassette.JANELLE\\This report may include one or more immunohistochemical stain results thatuse analyte specific reagents. All positive and negative controls havebeen reviewed by the attending pathologist and are satisfactory. The testswere developed and their pe rformance characteristics determined by [facility] Pathology department. They have not been cleared or approved by the USFood and Drug Administration. The FDA has determined that such clearanceor approval is not necessary. Name Value Range Interpretation Code Description Data Lou rce(s) Supporting Document(s) ID Date Data Source [id number] 11/16/2020 12:27:10 AM EDT [facility] Name Value Range Interpretation Code Description Data Lou rce(s) Supporting Document(s) Bicarbonate [Moles/volume] in Serum 21 mmol/L 22-29 L [facility] Chloride [Moles/volume] in Serum or Plasma 99 mmol/L 98-107 [facility] Creatinine [Mass/volume] in Serum or Plasma 0.54 mg/dL 0.70-1.20 L [facility] Glucose [Mass/volume] in Serum or Plasma 106 mg/dL 70-140 [facility] Potassium [Moles/volume] in Serum or Plasma 4.0 mmol/L 3.4-5.1 [facility] Sodium [Moles/volume] in Serum or Plasma 130 mmol/L 136-145 L [facility] Urea nitrogen [Mass/volume] in Serum or Plasma 8 mg/dL 6-20 [facility] Anion gap 3 in Serum or Plasma 11 mmol/L 8-15 [facility] Osmolality of Serum or Plasma by calculation 269 mosm/kg 275-300 L [facility] Creatinine/Urea nitrogen [Mass Ratio] in Serum or Plasma 16 [facility] Calcium [Mass/volume] in Serum or Plasma 8.2 mg/dL 8.6-10.0 L [facility] Glomerular filtration rate/1.73 sq M pre dicted among non-blacks [Volume Rate/Area] in Serum or Plasma by Creatinine-based formula (MDRD) >6 0 [facility] Glomerular filtration rate/1.73 sq M pre dicted among blacks [Volume Rate/Area] in Serum or Plasma by Creatinine-based formula (MDRD) >60 [facility] ID Date Data Source [id number] 11/16/2020 12:16:14 AM EDT [facility] Name Value Range Interpretation Code Description Data Lou rce(s) Supporting Document(s) Leukocytes [#/volume] in Blood by Automated count 10.6 10*3/uL 4-10 H [facility] Erythrocytes [#/volume] in Blood by Automated count 3.43 10*6/uL 4.6- 6.1 L [facility] Hemoglobin [Mass/volume] in Blood 8.9 g/dL 13.5-18 L [facility] Hematocrit [Volume Fraction] of Blood by Automated count 27.7 % 4 1-53 L [facility] Erythrocyte mean corpuscular volume [Entitic volume] by Auto mated count 80.9 fL 80-96 [facility] Erythrocyte mean corpuscular hemoglobin [Entitic mass] by Automated count 25.9 pg 27-33 L [facility] Erythrocyte mean corpuscular hemoglobin concentration [Mass/volume] by Automated count 32.0 g/dL 32.0-36.0 [facility] width [Ratio] by Automated count 18.7 % 11.5-14.5 H [facility] Platelets [#/volume] in Blood by Automated count 136 10*3/uL 150-400 L [facility] Differential cell count method - Blood [facility] Neutrophils/100 leukocytes in Blood by Automated count 72 % [facility] Lymphocytes/100 leukocytes in Blood by Automated count 7 % [facility] Monocytes/100 leukocytes in Blood by Automated count 17 % [facility] Eosinophils/100 leukocytes in Blood by Automated count 3 % [facility] Basophils/100 leukocytes in Blood by Automated count 1 % [facility] Neutrophils [#/volume] in Blood by Automated count 7.64 10*3/uL 1.8-7 .0 H [facility] Lymphocytes [#/volume] in Blood by Automated count 0.71 10*3/uL 1.2-4 .0 L [facility] Monocytes [#/volume] in Blood by Automated count 1.83 10*3/uL 0-0.8 H [facility] Eosinophils [#/volume] in Blood by Automated count 0.34 10*3/uL 0-0.5 [facility] Basophils [#/volume] in Blood by Automated count 0.06 10*3/uL 0-0.2 [facility] Nucleated erythrocytes/100 leukocytes [Ratio] in Blood by Automated count 0 /100{WBCs} 0-0 [facility] ID Date Data Source [id number] 11/15/2020 11:51:31 PM EDT [facility] Name Value Range Interpretation Code Description Data Lou rce(s) Supporting Document(s) Glucose [Mass/volume] in Capillary blood by Glucometer 108 mg/dL 70- 140 [facility] ID Date Data Source [id number] 11/15/2020 09:23:23 PM EDT [facility] Name Value Range Interpretation Code Description Data Lou rce(s) Supporting Document(s) [facility] EEKJCd9lWvGOVnHu86/BPOcrZARxk7XzBEimRWh1XNjgHUYfB8GmSEB4zI7nDJR2LZmDKyCiUhOuTdI5 [facility] CdOxkRViZiVESeVtnYKwJpITikAwobyUFfPX3DjMI2BTQmJ88lNTCcEQZcG0BzSNC2QOV+Qx3DKGGbxT SfGU6JPjvU6S1SqiwYFS7SbH/VCVNKYvbo8oMouLE9YDbw8PGOKPDwEMBfOiGOcxbiVr8+vnjMSWe4ll XHI6GX40bfMr/WSUxKZ4DD/dzyQuo7a3HJ9b/61zB2 VO9O/fUvalPNddbVNr+uZrJWO4TRpXyVx2Om6ms7jLVRu4fr9M5n7jNVfmcBRMWCL0V56D34e0Id/6ts 997BKsUrb5kgd5gVovXG31HqgTb4DQ7xAzKcmnHQg3YMiSrMWvBYlJZWkvvYyWCFlK6kp1Ac9oSCftQm A/ycg2W/KhuGx8FhzCLMruW0ECwvUrBs9kwByelpVg OglN3Wyn1xhlo3NQZ8a+3AXXdum+lEDZvmbeJ7Kvzv+9vKU0omS0Ju0Kaud5oUlxrJXQ+qJD3MTC7r0b Zs/1tzYlcYuOo6TUzm6MS0i60ZPyi6grTDem2sE2txFe9ku+XwyfxeAiuQ7wdoU0n71Sh7ZTK6aLD0o/ 7EwsCdNBKUByBvi3mE2i4lJkWqVR14WnF5nOPCoZC4 iMngu2YiQRXnIeETemDGxW/vtYLf9jrrnrdcwEBRf4isIpEDR+CufFxwkrmH6pPAtnPAGmUp179CnOhb Zunk++NCK5Sh64gL0FB0P7evxMWpphen3/TVeh8nIER24bJV5x79EzZL5//MbUMU5/rfprbsMgcdJwff 6iZCZGBFI5JyzDgLBMkGBHQ/ZLyx15AGNZHDu3KCMz [file] OTUzOTQ+TF7pMJj+Yo8Yj2LewyC8yvFvIMwwVlf9Li7RHJEZY4RGRh== ID Date Data Source [id number] 11/15/2020 07:26:24 PM EDT [facility] Name Value Range Interpretation Code Description Data Lou rce(s) Supporting Document(s) Glucose [Mass/volume] in Capillary blood by Glucometer 109 mg/dL 70- 140 [facility] ID Date Data Source [id number] 11/15/2020 04:11:20 PM [facility] Name Value Range Interpretation Code Description Data Lou rce(s) Supporting Document(s) Glucose [Mass/volume] in Capillary blood by Glucometer 111 mg/dL 70- 140 [facility] ID Date Data Source [id number] 11/15/2020 04:23:03 PM [facility] Name Value Range Interpretation Code Description Data Lou rce(s) Supporting Document(s) Albumin [Mass/volume] in Serum or Plasma by Bromocresol green (BCG) dye binding method 3.3 g/dL 3.5-5.2 L [facility] Bilirubin.total [Mass/volume] in Serum or Plasma 1.9 mg/dL <1.2 H [facility] Bilirubin.direct [Mass/volume] in Serum or Plasma 1.1 mg/dL <0.3 H [facility] Alkaline phosphatase [Enzymatic activity/volume] in Serum or Plasma 135 U/L 40-129 H [facility] Aspartate aminotransferase [Enzymatic activity/volume] in Serum or Plasma 267 U/L <40 H [facility] Alanine aminotransferase [Enzymatic activity/volume] in Seru m or Plasma 136 U/L <41 H [facility] Protein [Mass/volume] in Serum or Plasma 5.9 g/dL 6.4-8.3 L [facility] ID Date Data Source [id number] 11/15/2020 05:07:41 PM [facility] Name Value Range Interpretation Code Description Data Lou rce(s) Supporting Document(s) Leukocytes [#/volume] in Blood by Automated count 9.0 10*3/uL 4-10 [facility] Erythrocytes [#/volume] in Blood by Automated count 3.38 10*6/uL 4.6- 6.1 L [facility] Hemoglobin [Mass/volume] in Blood 9.0 g/dL 13.5-18 L [facility] Hematocrit [Volume Fraction] of Blood by Automated count 27.3 % 4 1-53 L [facility] Erythrocyte mean corpuscular volume [Entitic volume] by Auto mated count 80.8 fL 80-96 [facility] Erythrocyte mean corpuscular hemoglobin [Entitic mass] by Automated count 26.7 pg 27-33 L [facility] Erythrocyte mean corpuscular hemoglobin concentration [Mass/volume] by Automated count 33.0 g/dL 32.0-36.0 [facility] width [Ratio] by Automated count 18.6 % 11.5-14.5 [facility] Platelets [#/volume] in Blood by Automated count 124 10*3/uL 150-400 L [facility] Confirmed Differential cell count method - Blood [facility] Neutrophils/100 leukocytes in Blood by Automated count 76 % [facility] Lymphocytes/100 leukocytes in Blood by Automated count 6 % [facility] Monocytes/100 leukocytes in Blood by Automated count 14 % [facility] Eosinophils/100 leukocytes in Blood by Automated count 3 % [facility] Basophils/100 leukocytes in Blood by Automated count 1 % [facility] Neutrophils [#/volume] in Blood by Automated count 6.78 10*3/uL 1.8-7 .0 [facility] Lymphocytes [#/volume] in Blood by Automated count 0.56 10*3/uL 1.2-4 .0 [facility] Monocytes [#/volume] in Blood by Automated count 1.26 10*3/uL 0-0.8 H [facility] Eosinophils [#/volume] in Blood by Automated count 0.29 10*3/uL 0-0.5 [facility] Basophils [#/volume] in Blood by Automated count 0.06 10*3/uL 0-0.2 [facility] Nucleated erythrocytes/100 leukocytes [Ratio] in Blood by Automated count 0 /100{WBCs} 0-0 [facility] ID Date Data Source [id number] 11/15/2020 04:56:38 PM [facility] Name Value Range Interpretation Code Description Data Lou rce(s) Supporting Document(s) Hepatitis C virus Ab [Presence] in Serum or Plasma by Immuno assay Non Reactive [facility] No serological evidence of active infect ion. If recent exposure is suspected, test for HCV RNA. ID Date Data Source [id number] 11/15/2020 07:13:54 AM [facility] Name Value Range Interpretation Code Description Data Lou rce(s) Supporting Document(s) Bicarbonate [Moles/volume] in Serum 19 mmol/L 22-29 [facility] Chloride [Moles/volume] in Serum or Plasma 102 mmol/L 98-107 [facility] Creatinine [Mass/volume] in Serum or Plasma 0.69 mg/dL 0.70-1.20 L [facility] Glucose [Mass/volume] in Serum or Plasma 112 mg/dL 70-140 [facility] Potassium [Moles/volume] in Serum or Plasma 3.9 mmol/L 3.4-5.1 [facility] Sodium [Moles/volume] in Serum or Plasma 130 mmol/L 136-145 L [facility] Urea nitrogen [Mass/volume] in Serum or Plasma 13 mg/dL 6-20 [facility] Anion gap 3 in Serum or Plasma 9 mmol/L 8-15 [facility] Osmolality of Serum or Plasma by calculation 270 mosm/kg 275-300 L [facility] Creatinine/Urea nitrogen [Mass Ratio] in Serum or Plasma 19 [facility] Calcium [Mass/volume] in Serum or Plasma 8.2 mg/dL 8.6-10.0 [facility] Glomerular filtration rate/1.73 sq M pre dicted among non-blacks [Volume Rate/Area] in Serum or Plasma by Creatinine-based formula (MDRD) >6 0 [facility] Glomerular filtration rate/1.73 sq M pre dicted among blacks [Volume Rate/Area] in Serum or Plasma by Creatinine-based formula (MDRD) >60 [facility] ID Date Data Source [id number] 11/15/2020 07:47:[address] [facility] Name Value Range Interpretation Code Description Data Lou rce(s) Supporting Document(s) Leukocytes [#/volume] in Blood by Automated count 7.5 10*3/uL 4-10 [facility] Erythrocytes [#/volume] in Blood by Automated count 3.25 10*6/uL 4.6- 6.1 [facility] Hemoglobin [Mass/volume] in Blood 8.5 g/dL 13.5-18 [facility] Hematocrit [Volume Fraction] of Blood by Automated count 26.2 % 4 1-53 [facility] Erythrocyte mean corpuscular volume [Entitic volume] by Auto mated count 80.6 fL 80-96 [facility] Erythrocyte mean corpuscular hemoglobin [Entitic mass] by Automated count 26.2 pg 27-33 L [facility] Erythrocyte mean corpuscular hemoglobin concentration [Mass/volume] by Automated count 32.5 g/dL 32.0-36.0 [facility] Erythrocyte distribution width [Ratio] by Automated count 18.5 % 11.5-14.5 H [facility] Platelets [#/volume] in Blood by Automated count 123 10*3/uL 150-400 L [facility] Confirmed Differential cell count method - Blood [facility] Neutrophils/100 leukocytes in Blood by Automated count 72 % [facility] Lymphocytes/100 leukocytes in Blood by Automated count 10 % [facility] Monocytes/100 leukocytes in Blood by Automated count 13 % [facility] Eosinophils/100 leukocytes in Blood by Automated count 4 % [facility] Basophils/100 leukocytes in Blood by Automated count 1 % [facility] Neutrophils [#/volume] in Blood by Automated count 5.47 10*3/uL 1.8-7 .0 [facility] Lymphocytes [#/volume] in Blood by Automated count 0.72 10*3/uL 1.2-4 .0 L [facility] Monocytes [#/volume] in Blood by Automated count 0.97 10*3/uL 0-0.8 H [facility] Eosinophils [#/volume] in Blood by Automated count 0.32 10*3/uL 0-0.5 [facility] Basophils [#/volume] in Blood by Automated count 0.05 10*3/uL 0-0.2 [facility] Nucleated erythrocytes/100 leukocytes [Ratio] in Blood by Automated count 0 /100{WBCs} 0-0 [facility] ID Date Data Source [id number] 11/15/2020 12:33:23 PM [facility] Name Value Range Interpretation Code Description Data Lou rce(s) Supporting Document(s) Phosphate [Mass/volume] in Serum or Plasma 2.4 mg/dL 2.5-4.5 [facility] ID Date Data Source [id number] 11/14/2020 11:16:15 PM [facility] Name Value Range Interpretation Code Description Data Lou rce(s) Supporting Document(s) [facility] THGMOt3jDhSVBkUd17/ZNZwkVWMyf0YdSXhzWYe8ZIjsHUBjL9CoDLC7xW8gPTK9FPsRKjBhDxLgMzI1 [facility] OuVvuLBgTaZRScYucEYsGzQUdvIptwxEPwGN4AwCQ5FBCpM04mWGOmWJYfL5TfHLB1EgJ+Ek3EFIDwqA PlKL3AWliK3P1rKsuXHn0+3g9NBF30nprNuey8xFUVHcIiRIQ3Sj8xm5LJ8A9kKQ+C0t94U5/DpirDL6 4qalGYlGWuth2uqw1sw7nJZYX+32mnrTUJogZ86+zP GPDM3P55+9/UvJvnzrrN/2SdyAOuEztR+UD+p6e/jgBPzwj7iPZ1dOrlVu+4RJDcy02YAsWO37Qil+ri d6U9L2/HlcURbY7BWNA3Ovb9CnO7oDOrmBPYxblPm1jIe+ZKz8KccW6K0wUepTDBhOKBqeWl4aTGanzl rrbNgFyC5jpBCSEdpORaxNMBHX6Ntkwh3BcOcbY1b2 E+lN9w1EB+ae43zxUae1RfZHinhdVWgc1xXacckD8O2MSZHf6PJlcZbTFqeJ3nfGNYe5Z+cgUm4Xl+zN G68vNevm0fkPd7VpzQ0nqdYItos9SR+5dcgwe5mT2pJ+zE7A24H1nQbbk32zuSzPKxtwmJ49B81JbYfs RgMdfAb5ZHBKxXsOPbq+tjLiBPRydj867i6YBumgwf yzJbnPfZTdpbsjhUGKulOs/+mJnK8vP+QEu3rZZmSaqID/ROTA5fp+/onh5iKJQKABp5QOlQF2uFkiiW J8onRrNSpteBNtffcZJWyBo1kLRnZMzgnKLu3OED5nsiap0au4YzF7wf9TSiEn9KtQwvvBR/HWrLLkrQ sHnqq2coAOe2VcfG8pErWNUlH35/AfJ6m9EMZEvJv3 TZSoftQRLIme0jW6J28Xk1YkGutLk5MtzIpbwvjnLEiVb2tbTS6Bd1C7PIBWYeZ5OQxf3izaKcCv+Mars [file] DrHpm8MyqoBBQ6XMHpTfUrVIIsMhViHB2mFALCDq3+WSsooSOqdEhrTEDERyL7LEN8NBawXBEIDl5S ID Date Data Source [id number] 11/15/2020 12:29:07 AM [facility] Name Value Range Interpretation Code Description Data Lou rce(s) Supporting Document(s) Leukocytes [#/volume] in Blood by Automated count 7.5 10*3/uL 4-10 [facility] Erythrocytes [#/volume] in Blood by Automated count 3.11 10*6/uL 4.6- 6.1 L [facility] Hemoglobin [Mass/volume] in Blood 8.0 g/dL 13.5-18 L [facility] Hematocrit [Volume Fraction] of Blood by Automated count 24.9 % 4 1-53 L [facility] Erythrocyte mean corpuscular volume [Entitic volume] by Auto mated count 80.0 fL 80-96 [facility] Erythrocyte mean corpuscular hemoglobin [Entitic mass] by Automated count 25.8 pg 27-33 L [facility] Erythrocyte mean corpuscular hemoglobin concentration [Mass/volume] by Automated count 32.3 g/dL 32.0-36.0 [facility] [Ratio] by Automated count 18.7 % 11.5-14.5 H [facility] Platelets [#/volume] in Blood by Automated count 120 10*3/uL 150-400 L [facility] Confirmed Differential cell count method - Blood [facility] Neutrophils/100 leukocytes in Blood by Automated count 71 % [facility] Lymphocytes/100 leukocytes in Blood by Automated count 11 % [facility] Monocytes/100 leukocytes in Blood by Automated count 13 % [facility] Eosinophils/100 leukocytes in Blood by Automated count 4 % [facility] Basophils/100 leukocytes in Blood by Automated count 1 % [facility] Neutrophils [#/volume] in Blood by Automated count 5.34 10*3/uL 1.8-7 .0 [facility] Lymphocytes [#/volume] in Blood by Automated count 0.83 10*3/uL 1.2-4 .0 [facility] Monocytes [#/volume] in Blood by Automated count 0.96 10*3/uL 0-0.8 H [facility] Eosinophils [#/volume] in Blood by Automated count 0.32 10*3/uL 0-0.5 [facility] Basophils [#/volume] in Blood by Automated count 0.06 10*3/uL 0-0.2 [facility] Nucleated erythrocytes/100 leukocytes [Ratio] in Blood by Automated count 0 /100{WBCs} 0-0 [facility] ID Date Data Source [id number] 11/14/2020 03:50:27 PM EDT [facility] Name Value Range Interpretation Code Description Data Lou rce(s) Supporting Document(s) History and Physical [facility] LOKJHu1qWyZKCfOh07/ZLEthJMJvj3IfDRpdJKz5AGqyYQKzU1TxNHS9hT4xMDP7NNtAFlQzJaCfHoR2 lbm [file] AgICAgICAgICAgICAgICAgICAgICAgICAgICAgICAgICAgICAgICAgICAgICAgICAgICAgICAgICAgIC AgICAgICAgICAgICAgICAgICAgICAgICAgICAgICAgICAgICAgICANCiAgICAgICAgICAgICAgICAgIC AgICAgICAgICAgICAgICAgICAgICAgICAgICAgICAg ICAgICAgICAgICAgICAgICAgICAgICAgICAgICAgICAgICAgICAgICAgICAgICAgICANCiAgICAgICAg ICAgICAgICAgICAgICAgICAgICAgICAgICAgICAgICAgICAgICAgICAgICAgICAgICAgICAgICAgICAg ICAgICAgICAgICAgICAgICAgICAgICAgICAgICAgIC ANCiAgICAgICAgICAgICAgICAgICAgICAgICAgICAgICAgICAgICAgICAgICAgICAgICAgICAgICAgIC AgICAgICAgICAgICAgICAgICAgICAgICAgICAgICAgICAgICAgICAgICANCiAgICAgICAgICAgICAgIC AgICAgICAgICAgICAgICAgICAgICAgICAgICAgICAg ICAgICAgICAgICAgICAgICAgICAgICAgICAgICAgICAgICAgICAgICAgICAgICAgICAgICANCiAgICAg ICAgICAgICAgICAgICAgICAgICAgICAgICAgICAgICAgICAgICAgICAgICAgICAgICAgICAgICAgICAg ICAgICAgICAgICAgICAgICAgICAgICAgICAgICAgIC AgICANCiAgICAgICAgICAgICAgICAgICAgICAgICAgICAgICAgICAgICAgICAgICAgICAgICAgICAgIC AgICAgICAgICAgICAgICAgICAgICAgICAgICAgICAgICAgICAgICAgICAgICANCiAgICAgICAgICAgIC AgICAgICAgICAgICAgICAgICAgICAgICAgICAgICAg ICAgICAgICAgICAgICAgICAgICAgICAgICAgICAgICAgICAgICAgICAgICAgICAgICAgICAgICANCiAg ICAgICAgICAgICAgICAgICAgICAgICAgICAgICAgICAgICAgICAgICAgICAgICAgICAgICAgICAgICAg ICAgICAgICAgICAgICAgICAgICAgICAgICAgICAgIC AgICAgICANCiAgICAgICAgICAgICAgICAgICAgICAgICAgICAgICAgICAgICAgICAgICAgICAgICAgIC AgICAgICAgICAgICAgICAgICAgICAgICAgICAgICAgICAgICAgICAgICAgICAgICANCjw/dSCrX1tbxK AwngM8I2fkUi7AQv2UDQ3mw9PdWYTdEFliryAcIhlU DyYjYDWbQdaBEgv7YHlaLZ3YsXIsW3TkX0VrQMunZP9OHBLyTYSxlGDnIDPcATHaCiN9QDEuYKmdGQ9N tEVtGGwoUHHrPWCfCgZoFBDcCJDzLZExCNTbVVMOEMJaXJBkOdOzTNztYK5Sr7DxfJT5HWl+Qv3TPB1z n9RsGDqiWyYbOI4nfh1OFTdEApOwW2NyqgU8QLV6MC IuDl9RVERcDSWsnUOwKdHmPWYABbUhU5SzrX94MYWUAd2+ZZhsnoLjGtwWWoM6ESQvn1AiANk5BN5PHT JoIJt8oGPbDSERLAQ0KYh3tiEuWRAraZKqWOUGPYIhdPG6VmM7ZkIqVyTpWWC2OAGnLZ7oYTorRX0TZZ Z3NFzrOMDyPWXuO2tGLmBtAXZhUYVeeEmaMN6UUsBt R6EksfSotAEwWgHcQAIFBw9+KJqcghXaUakKXzT5QHUlc0ImUYu0DL9RHVIvCQcmBJ5MYBDjzJ2xUTuf XS7DTnKoZZYkRGOVXtKyN85uaFHdTDo6N2WvKdQuTKVrSdpsZWNhIOvkQcElOYUvAlViJJjdVT4+ID4+ AWmxHI4GBGwqwwGsJYZdDt9HCQPdXMVhHY5lBQUtIJ GbW0Q3jQzwGCRFKpQdT6tbnuboEE8xLTCnH919aAjlkuFtDCB3SGGrEr1WYTVqDYE8CTCkaSGbLfKiSY DQHJegVD5SdMUxXMJ3bG6hEZiqETLhXSWrK2jMYwTzaPxmLY01bMxxhgVbeEIxNPc+Rm0XQH0yl6ShHD j0jsUdGGebNBF8RJbtAYCrEVFxKQLdUTI1SOA4VAYW TmJoBLWfWAJeBOesNIWtLLMswg9IGGKsOLRmNOU2YAXxBUZyJNCrCYecYPBwKJF0BzEaTGItPBQgDA4M EgAyHFJbQVRrYOzdMEGbGFTijk5MAYSmJWBhPWZ3CYPmUAVbAUHpILmbZNDdRLN3ZKlfTSKaYPAcCF2D NyVoCZPvWSi6HLSdWMVkXKEvdm1XRYDjNUZgIef0NM DwVMSjMDWwCPibVWVkXBPdNFT9FEXxOSQuSQ9ZTdFgUOCwGHIsGfVdWCCqHGJfuw0EVSCcMUAzVbpkXv BsRGFvPVXaYKvzOGEoCNWjUXQ3PWIdKIQwCI5FVnXfDIIsAODjCUKgKJEpLNApal8WLGRrYCWrMPX3Gi GkDPDwGSSbBXdgTHYhYXP1CVC1CSLdWZByKP5ZKlWe NKHxYCP7BSCzCEXxJOXxnh7XTEWpBRJnFezsFeYeZKXwUUIwZDorUDEdMYR3KUs8BNFiCQPgRM2HHzTf DIYrGVtqOOesUNBeBVBruw5HQFTyIYBrOHD0UcDsTBXuYYNuTDqxVVSzXJN6LhH7BHRnTTRpSN6KRfTi TDBfDEj1NkznDGOeCJLymt9NCCZwWQXzYXFdQDFvMN KhROLsMPxgMYAvSXRcTPj1PGIrTPGeKR0PRjDjSYKuViD3SKQwQDQuNZCyij3NDWQfVFAbRWd2KJVdDN KxQSHzXDjpKSYlTJSbFaXjWFNtIQAjQQ7ZZfVfPCNpSfT1RkbrRIFxJDEnwx6XRMPgBZKwWvf4XlNpIO JuIOWwIKajTJQwAKVuGIL3FQFlROWlZD1XDwXcREQh MmGnViThMCHmLWShhd3ZMDDxGFTyTUCaMoOiGKEpIHYqACtzKABdODK0Xfy9STFtJWNgKB7KXtPyNGLg ZoW8QbZlPQLiCDYvbg2EBDAsKDEnJYAxOLPrJKKiSVBaSZwdLNBbQNE7FQt5MNWuUNCkFI1QEaJgLUKh OhY2ZZFhFEQeZKExio7GYMPeIQMfHpK5BSEcODAjII GhWLd4yaXajVYoGBk5ZZ7HQ2UgxlEqOjuJKb9Jh663KPZ9IDVaEe4JN1drTp2cLVEvKYYWXs3QQAa6To JcMZK2RXR5SiKlOdN4MdQ2VdypC7KcAgFmYoW7UUV+VCoxTdN2FvHqNPpsOIQrUPA2POzxVbM2TyEyZh WgEXSeCT7cQHYZUq9+ESyfeNBkeZvzIWFHGrS6HST6TRibYBOXTb9Z ID Date Data Source [id number] 11/14/2020 05:33:49 PM EDT [facility] Name Value Range Interpretation Code Description Data Lou rce(s) Supporting Document(s) Albumin [Mass/volume] in Serum or Plasma by Bromocresol green (BCG) dye binding method 3.2 g/dL 3.5-5.2 [facility] Bil[facility].total [Mass/volume] in Serum or Plasma 2.1 mg/dL <1.2 H [facility] Calcium [Mass/volume] in Serum or Plasma 7.9 mg/dL 8.6-10.0 L [facility] Chloride [Moles/volume] in Serum or Plasma 100 mmol/L 98-107 [facility] Creatinine [Mass/volume] in Serum or Plasma 0.64 mg/dL 0.70-1.20 L [facility] Glucose [Mass/volume] in Serum or Plasma 94 mg/dL 70-140 [facility] Alkaline phosphatase [Enzymatic activity/volume] in Serum or Plasma 123 U/L 40-129 [facility] Potassium [Moles/volume] in Serum or Plasma 3.7 mmol/L 3.4-5.1 [facility] Protein [Mass/volume] in Serum or Plasma 5.8 g/dL 6.4-8.3 L [facility] Sodium [Moles/volume] in Serum or Plasma 130 mmol/L 136-145 L [facility] Aspartate aminotransferase [Enzymatic activity/volume] in Serum or Plasma 325 U/L <40 H [facility] Urea nitrogen [Mass/volume] in Serum or Plasma 13 mg/dL 6-20 [facility] Osmolality of Serum or Plasma by calculation 269 mosm/kg 275-300 L [facility] Creatinine/Urea nitrogen [Mass Ratio] in Serum or Plasma 21 [facility] Bicarbonate [Moles/volume] in Serum 21 mmol/L 22-29 L [facility] Alanine aminotransferase [Enzymatic activity/volume] in Seru m or Plasma 127 U/L <41 H [facility] Anion gap 3 in Serum or Plasma 9 mmol/L 8-15 [facility] Glomerular filtration rate/1.73 sq M pre dicted among non-blacks [Volume Rate/Area] in Serum or Plasma by Creatinine-based formula (MDRD) >6 0 [facility] Glomerular filtration rate/1.73 sq M pre dicted among blacks [Volume Rate/Area] in Serum or Plasma by Creatinine-based formula (MDRD) >60 [facility] ID Date Data Source [id number] 11/14/2020 05:33:49 PM [facility] Name Value Range Interpretation Code Description Data Lou rce(s) Supporting Document(s) Magnesium [Mass/volume] in Serum or Plasma 2.5 mg/dL 1.6-2.6 [facility] ID Date Data Source [id number] 11/14/2020 05:33:49 PM [facility] Value Range Interpretation Code Description Data Lou rce(s) Supporting Document(s) Phosphate [Mass/volume] in Serum or Plasma 1.3 mg/dL 2.5-4.5 [facility] ID Date Data Source [id number] 11/14/2020 06:06:06 PM [facility] Name Value Range Interpretation Code Description Data Lou rce(s) Supporting Document(s) Leukocytes [#/volume] in Blood by Automated count 7.8 10*3/uL 4-10 [facility] Erythrocytes [#/volume] in Blood by Automated count 3.15 10*6/uL 4.6- 6.1 [facility] Hemoglobin [Mass/volume] in Blood 8.3 g/dL 13.5-18 L [facility] Hematocrit [Volume Fraction] of Blood by Automated count 25.4 % 4 1-53 L [facility] Erythrocyte mean corpuscular volume [Entitic volume] by Auto mated count 80.6 fL 80-96 [facility] Erythrocyte mean corpuscular hemoglobin [Entitic mass] by Automated count 26.4 pg 27-33 L [facility] Erythrocyte mean corpuscular hemoglobin concentration [Mass/volume] by Automated count 32.8 g/dL 32.0-36.0 [facility] width [Ratio] by Automated count 18.5 % 11.5-14.5 H [facility] Platelets [#/volume] in Blood by Automated count 116 10*3/uL 150-400 L [facility] Confirmed Differential cell count method - Blood [facility] Neutrophils/100 leukocytes in Blood by Automated count 76 % [facility] Lymphocytes/100 leukocytes in Blood by Automated count 8 % [facility] Monocytes/100 leukocytes in Blood by Automated count 13 % [facility] Eosinophils/100 leukocytes in Blood by Automated count 2 % [facility] Basophils/100 leukocytes in Blood by Automated count 1 % [facility] Neutrophils [#/volume] in Blood by Automated count 5.95 10*3/uL 1.8-7 .0 [facility] Lymphocytes [#/volume] in Blood by Automated count 0.63 10*3/uL 1.2-4 .0 L [facility] Monocytes [#/volume] in Blood by Automated count 1.05 10*3/uL 0-0.8 H [facility] Eosinophils [#/volume] in Blood by Automated count 0.19 10*3/uL 0-0.5 [facility] Basophils [#/volume] in Blood by Automated count 0.04 10*3/uL 0-0.2 [facility] Nucleated erythrocytes/100 leukocytes [Ratio] in Blood by Automated count 0 /100{WBCs} 0-0 [facility] ID Date Data Source [id number] 11/14/2020 01:43:47 PM [facility] Name Value Range Interpretation Code Description Data Lou rce(s) Supporting Document(s) Ammonia [Moles/volume] in Plasma 86 umol/L 16-60 H [facility] ID Date Data Source [id number] 11/14/2020 08:19:36 AM [facility] Name Value Range Interpretation Code Description Data Lou rce(s) Supporting Document(s) Bicarbonate [Moles/volume] in Serum 21 mmol/L 22-29 L [facility] Chloride [Moles/volume] in Serum or Plasma 99 mmol/L 98-107 [facility] Confirmed Creatinine [Mass/volume] in Serum or Plasma 0.65 mg/dL 0.70-1.20 L [facility] Glucose [Mass/volume] in Serum or Plasma 97 mg/dL 70-140 [facility] Potassium [Moles/volume] in Serum or Plasma 3.0 mmol/L 3.4-5.1 L [facility] Confirmed Sodium [Moles/volume] in Serum or Plasma 130 mmol/L 136-145 L [facility] Confirmed Urea nitrogen [Mass/volume] in Serum or Plasma 15 mg/dL 6-20 [facility] Anion gap 3 in Serum or Plasma 11 mmol/L 8-15 [facility] Confirmed Osmolality of Serum or Plasma by calculation 271 mosm/kg 275-300 L [facility] Confirmed Creatinine/Urea nitrogen [Mass Ratio] in Serum or Plasma 22 [facility] Calcium [Mass/volume] in Serum or Plasma 7.8 mg/dL 8.6-10.0 L [facility] Glomerular filtration rate/1.73 sq M pre dicted among non-blacks [Volume Rate/Area] in Serum or Plasma by Creatinine-based formula (MDRD) >6 0 [facility] Glomerular filtration rate/1.73 sq M pre dicted among blacks [Volume Rate/Area] in Serum or Plasma by Creatinine-based formula (MDRD) >60 [facility] ID Date Data Source [id number] 11/14/2020 08:31:[address] [facility] Name Value Range Interpretation Code Description Data Lou rce(s) Supporting Document(s) Leukocytes [#/volume] in Blood by Automated count 6.9 10*3/uL 4-10 [facility] Erythrocytes [#/volume] in Blood by Automated count 2.97 10*6/uL 4.6- 6.1 [facility] Hemoglobin [Mass/volume] in Blood 7.9 g/dL 13.5-18 [facility] Hematocrit [Volume Fraction] of Blood by Automated count 23.7 % 4 1-53 [facility] Erythrocyte mean corpuscular volume [Entitic volume] by Auto mated count 79.8 fL 80-96 [facility] Erythrocyte mean corpuscular hemoglobin [Entitic mass] by Automated count 26.5 pg 27-33 [facility] Erythrocyte mean corpuscular hemoglobin concentration [Mass/volume] by Automated count 33.2 g/dL 32.0-36.0 [facility] width [Ratio] by Automated count 18.9 % 11.5-14.5 H [facility] Platelets [#/volume] in Blood by Automated count 99 10*3/uL 150-400 [facility] Confirmed Differential cell count method - Blood [facility] Neutrophils/100 leukocytes in Blood by Automated count 77 % [facility] Lymphocytes/100 leukocytes in Blood by Automated count 7 % [facility] Monocytes/100 leukocytes in Blood by Automated count 12 % [facility] Eosinophils/100 leukocytes in Blood by Automated count 3 % [facility] Basophils/100 leukocytes in Blood by Automated count 1 % [facility] Neutrophils [#/volume] in Blood by Automated count 5.45 10*3/uL 1.8-7 .0 [facility] Lymphocytes [#/volume] in Blood by Automated count 0.47 10*3/uL 1.2-4 .0 L [facility] Monocytes [#/volume] in Blood by Automated count 0.80 10*3/uL 0-0.8 [facility] Eosinophils [#/volume] in Blood by Automated count 0.18 10*3/uL 0-0.5 [facility] Basophils [#/volume] in Blood by Automated count 0.03 10*3/uL 0-0.2 [facility] Nucleated erythrocytes/100 leukocytes [Ratio] in Blood by Automated count 0 /100{WBCs} 0-0 [facility] ID Date Data Source [id number] 11/14/2020 11:09:27 AM [facility] Name Value Range Interpretation Code Description Data Lou rce(s) Supporting Document(s) Magnesium [Mass/volume] in Serum or Plasma 2.6 mg/dL 1.6-2.6 [facility] ID Date Data Source [id number] 11/14/2020 11:09:27 AM [facility] Value Range Interpretation Code Description Data Lou rce(s) Supporting Document(s) Phosphate [Mass/volume] in Serum or Plasma 1.6 mg/dL 2.5-4.5 [facility] ID Date Data Source [id number] 11/13/2020 11:52:58 PM [facility] Value Range Interpretation Code Description Data Lou rce(s) Supporting Document(s) ABO and Rh group [Type] in Blood [facility] Blood bank comment [facility] ID Date Data Source [id number] 11/13/2020 09:59:28 PM [facility] Value Range Interpretation Code Description Data Lou rce(s) Supporting Document(s) Sodium [Moles/volume] in Blood 132 mmol/L 136-145 L [facility] Potassium [Moles/volume] in Blood 3.1 mmol/L 3.4-5.1 L [facility] Chloride [Moles/volume] in Blood 97 mmol/L 98-107 L [facility] Carbon dioxide, total [Moles/volume] in Blood 21 mmol/L 22-29 L [facility] Calcium.ionized [Moles/volume] in Blood 1.19 mmol/L 1.13-1.32 [facility] Glucose [Mass/volume] in Blood 115 mg/dL 70-140 [facility] Urea nitrogen [Mass/volume] in Blood 15 mg/dL 6-20 [facility] Creatinine [Mass/volume] in Blood 0.7 mg/dL 0.70-1.20 [facility] Hematocrit [Volume Fraction] of Blood 22 % 41-53 L [facility] Hemoglobin [Mass/volume] in Blood by calculation 7.5 g/dL 13.5-18.0 [facility] ID Date Data Source [id number] 11/13/2020 09:59:[address] [facility] Name Value Range Interpretation Code Description Data Lou rce(s) Supporting Document(s) Leukocytes [#/volume] in Blood by Automated count 7.0 10*3/uL 4-10 [facility] Erythrocytes [#/volume] in Blood by Automated count 2.58 10*6/uL 4.6- 6.1 L [facility] Hemoglobin [Mass/volume] in Blood 7.0 g/dL 13.5-18 L [facility] Hematocrit [Volume Fraction] of Blood by Automated count 20.6 % 4 1-53 [facility] Called to and read back by Zeny cintron RATE REVIEWER [id number] [place] [id number] Erythrocyte mean corpuscular volume [Entitic volume] by Auto mated count 79.5 fL 80-96 L [facility] Erythrocyte mean corpuscular hemoglobin [Entitic mass] by Automated count 27.1 pg 27-33 [facility] Erythrocyte mean corpuscular hemoglobin concentration [Mass/volume] by Automated count 34.0 g/dL 32.0-36.0 [facility] width [Ratio] by Automated count 19.9 % 11.5-14.5 H [facility] Platelets [#/volume] in Blood by Automated count 102 10*3/uL 150-400 L [facility] Differential cell count method - Blood [facility] Neutrophils/100 leukocytes in Blood by Automated count 78 % [facility] Lymphocytes/100 leukocytes in Blood by Automated count 7 % [facility] Monocytes/100 leukocytes in Blood by Automated count 13 % [facility] Eosinophils/100 leukocytes in Blood by Automated count 1 % [facility] Basophils/100 leukocytes in Blood by Automated count 1 % [facility] Neutrophils [#/volume] in Blood by Automated count 5.50 10*3/uL 1.8-7 .0 [facility] Lymphocytes [#/volume] in Blood by Automated count 0.47 10*3/uL 1.2-4 .0 L [facility] Monocytes [#/volume] in Blood by Automated count 0.89 10*3/uL 0-0.8 H [facility] Eosinophils [#/volume] in Blood by Automated count 0.09 10*3/uL 0-0.5 [facility] Basophils [#/volume] in Blood by Automated count 0.04 10*3/uL 0-0.2 [facility] Nucleated erythrocytes/100 leukocytes [Ratio] in Blood by Automated count 0 /100{WBCs} 0-0 [facility] ID Date Data Source [id number] 11/13/2020 10:08:20 PM [facility] Value Range Interpretation Code Description Data Lou rce(s) Supporting Document(s) Prothrombin time (PT) 16.6 s 12.5-14.9 H [facility] INR in Platelet poor plasma by Coagulation assay 1.32 [facility] Routine intensity oral anticoagulation I NR is typically 2.0-3.0. Target INR must be clinically individualized. ID Date Data Source [id number] 11/13/2020 10:17:51 PM [facility] Value Range Interpretation Code Description Data Lou rce(s) Supporting Document(s) Lipase [Enzymatic activity/volume] in Serum or Plasma 44 U/L 13-6 0 [facility] ID Date Data Source [id number] 11/13/2020 10:17:51 PM [facility] Value Range Interpretation Code Description Data Lou rce(s) Supporting Document(s) Albumin [Mass/volume] in Serum or Plasma by Bromocresol green (BCG) dye binding method 3.0 g/dL 3.5[facility] Bil[facility].total [Mass/volume] in Serum or Plasma 1.7 mg/dL <1.2 H [facility] Calcium [Mass/volume] in Serum or Plasma 7.8 mg/dL 8.6-10.0 L [facility] Chloride [Moles/volume] in Serum or Plasma 97 mmol/L 98-107 L [facility] Creatinine [Mass/volume] in Serum or Plasma 0.66 mg/dL 0.70-1.20 L [facility] Glucose [Mass/volume] in Serum or Plasma 115 mg/dL 70-140 [facility] Alkaline phosphatase [Enzymatic activity/volume] in Serum or Plasma 127 U/L 40-129 [facility] Potassium [Moles/volume] in Serum or Plasma 3.1 mmol/L 3.4-5.1 L [facility] Protein [Mass/volume] in Serum or Plasma 5.5 g/dL 6.4-8.3 L [facility] Sodium [Moles/volume] in Serum or Plasma 128 mmol/L 136-145 L [facility] Aspartate aminotransferase [Enzymatic activity/volume] in Serum or Plasma 189 U/L <40 H [facility] Urea nitrogen [Mass/volume] in Serum or Plasma 16 mg/dL 6-20 [facility] Osmolality of Serum or Plasma by calculation 269 mosm/kg 275-300 L [facility] Creatinine/Urea nitrogen [Mass Ratio] in Serum or Plasma 24 [facility] Bicarbonate [Moles/volume] in Serum 22 mmol/L 22-29 [facility] Alanine aminotransferase [Enzymatic activity/volume] in Seru m or Plasma 74 U/L <41 H [facility] Anion gap 3 in Serum or Plasma 9 mmol/L 8-15 [facility] Glomerular filtration rate/1.73 sq M pre dicted among non-blacks [Volume Rate/Area] in Serum or Plasma by Creatinine-based formula (MDRD) >6 0 [facility] Glomerular filtration rate/1.73 sq M pre dicted among blacks [Volume Rate/Area] in Serum or Plasma by Creatinine-based formula (MDRD) >60 [facility] ID Date Data Source [id number] 11/16/2020 07:33:[address] [facility] Name Value Range Interpretation Code Description Data Lou rce(s) Supporting Document(s) ABO and Rh group [Type] in Blood [facility] Blood group antibody screen [Presence] in Serum or Plasma [facility] Performed at [facility], Raquel brody, Geeta, [id number] ID Date Data Source [id number] 11/13/2020 03:31:00 PM EDT [facility] Name Value Range Interpretation Code Description Data Lou rce(s) Supporting Document(s) SARS coronavirus 2 RNA [Presence] in Res piratory specimen by TOYA with probe detection NEGATIVE [facility] This lab was ordered by [facility] a nd reported by [facility]. Procedure Social History Code Duration Value Status Description Data Source(s ) Alcohol intake 11/16/2020 12:00:00 AM EDT Current drinker of al cohol (finding) completed Current drinker of alcohol (finding) [facility] Tobacco use and exposure 11/16/2020 12:00:00 AM EDT Never used co mpleted Never used [facility] Cigarette pack-years 11/16/2020 12:00:00 AM EDT [facility] Cigarettes smoked current (pack per day) - Reported 11/17/19 12:00:00 AM EDT [facility] Smoking 11/16/2020 12:00:00 AM EDT Current every day smoker co mpleted Current every day smoker [facility] Vital Signs ID Date Data Source UNK Name Value Range Interpretation Code Description Data Source(s) Body weight 2480 [oz_av] 2480 [oz_av] [place] ([facility]) Diastolic blood pressure 78 mm[Hg] 78 mm[Hg] [place] ([facility]) Body height 65 [in_i] 65 [in_i] [facility] Body mass index (BMI) [Ratio] 25.8 kg/m2 25.8 k g/m2 [place] ([facility]) Systolic blood pressure 121 mm[Hg] 121 mm[Hg] Venkata ROBBINS ([facility]) ID Date Data Source [id number] 12/14/2020 04:10:11 PM EDT [facility] Name Value Range Interpretation Code Description Data Source(s) WEIGHT RECORDED 151.3 lb 151.3 lb [facility] Body height Measured 66 in 66 in [facility] TRANSFER FROM [facility] ID Date Data Source [id number] 12/01/2020 11:10:43 AM [facility] Hospital Name Value Range Interpretation Code Description Data Source(s) TRANSFER FROM [facility] Patient Treatment Plan of Care Planned Activity Planned Date Details Description Data Source (s) Lisinopril 5 MG Oral Tablet 12/12/2020 12:00:[address] [facility] Thiamine 100 MG Oral Tablet 12/12/2020 12:00:[address] [facility] Acetaminophen 325 MG Oral Tablet 12/12/2020 12:00:[address] [facility] Acetaminophen 325 MG Oral Tablet 12/10/2020 04:46:[address] [facility] Folic Acid 1 MG Oral Tablet 2020 12:00:[address] [facility] Vitamin B 12 0.25 MG Oral Tablet 2020 12:00:[address] [facility] pantoprazole 40 MG Delayed Release Oral Tablet 11/17/2020 12:00:[address] [facility] Lisinopril 30 MG Oral Tablet [facility] duloxetine 60 MG Delayed Release Oral Capsule [facility] ([facility]) Clindamycin 300 MG Oral Capsule [facility] ([facility])
[2021-04-04] MEDS ORDERED: PANTOPRAZOLE 40MG VIAL (C9113 PER 1) IV ONE (14:15)
--- NOTE | 2021-04-04 14:45 | REP ---
INDICATION: Abdominal Pain COMPARISON: None. TECHNIQUE: Upright view of the chest with supine and upright views of the abdomen and pelvis. FINDINGS: Frontal upright view of the chest demonstrates no acute cardiopulmonary process or free air below the diaphragm to suspect pneumoperitoneum. Supine and upright views of the abdomen and pelvis demonstrate nonspecific bowel gas pattern without obstruction or perforation. No organomegaly. Small round calcification in the hemipelvis likely phleboliths. Skeletal structures normal for age. IMPRESSION: Nonspecific bowel gas pattern. <Electronically signed by Sher Kurtz > 04/04/21 1989
--- OUTSIDE RECORDS SUMMARY | 2021-04-04 15:42 | CCD ---
Author Author [facility] Organization [facility] Address Unknown Phone Unavailable Care Team Providers Care Financial Cost Analyst Name Role Phone MANUELA RATLIFF DORCAS RPA-C [...] Unavailable Unavailable Magdiel ZENDEJAS MD Unavailable Unavailable CRISTIANAMgadiel MD Unavailable Unavailable CRISTIANAMagdiel MD Unavailable Unavailable CRISTIANAMagdiel MD Unavailable Unavailable CRISTIANAMagdiel MD Unavailable Unavailable CRISTIANA, Magdiel JOHNSON MD Unavailable Unavailable CRISTIANAMagdiel MD Unavailable Unavailable [...] Unavailable Alexe MD, Jaxon Unavailable ALEXE, JAXON [id number] Unavailable Unavailable GHASEMI, LAMONT MD Unavailable Unavailable [...] is protected by Article 27-F of the [facility] Public Health law. If you continue you may have access to information: Regarding HIV / AIDS; Provided by facilities licensed or operated by the [facility] Office of Mental Health; or Provided by the [facility] Office for People With Developmental Disabilities. If such information is present, then the following [facility] mandated warning applies: This information has been [...] law may result in a fine or skilled nursing sentence or both. A general authorization for the release of medical or other information is NOT sufficient authorization for further disc losure. Allergies and Adverse Reactions Type Description Substance Reaction Status Data Source(s ) Propensity to adverse reactions PENICILLINS Penicillin [facility] Propensity to adverse reactions NAPROXEN NAPROXEN [facility] Propensity to adverse reactions IBUPROFEN Ibuprofen [facility] Propensity to adverse reactions DIPHENHYDRAMINE DIPHENHYDRAMINE [facility] Drug allergy AMOXICILLIN-POT CLAVULANATE AMOXICILLIN-POT CLAVULANATE [facility] Allergy to substance Allergy to substance Naproxen BRISTOL ([facility]) Allergy to substance Allergy to substance Ibuprofen BRISTOL ([facility]) Allergy to substance Allergy to substance Diphenhydramine Hcl BRISTOL ([facility]) Family History Family Member Name Family Member Gender Family Member Status Date o f Status Description Data Source(s) Unknown Unknown Problem MEDENT ([facility], [facility]) Encounters Encounter Providers Location Date Indications Data Source(s ) Outpatient Attender: Soo RamachandranAttender: SOO LING . 03/23/2021 12:00:00 AM [facility] Inpatient Attender: Antonio Lee antonieta: LAMONT GRAY MDAdmitter: LAMONT GRAY MDReferrer: LAMONT GRAY MD [id number] 12/08/2020 12:00: 00 AM EDT - 12/12/2020 01:58:00 PM [facility] Patient discharged. FERNY Bartlett: [address] [facility], [facility] [address], [place] [address], Ph. Attender: DORCAS ISAACS [facility] Attender: SOO RAMACHANDRAN . [id number] 11/17/2020 03:42:22 PM EDT [facility] Inpatient Attender: RON MILLER MDAttender: Jaxon Last MDAttender: JAXON LAST [id number]: Bethanie Walls MDAttender: DONAL HUBBARD MDAttender: ALEXNILSON ZENDEJAS MDAdmitter: Bethanie Walls MDReferrer: DONAL HUBBARD MD [id number] 11/13/2020 12:00:00 AM EDT - 11/17/2020 05:29:00 PM EDT [facility] Patient discharged. Immunizations Vaccine Date Status Description Data Source(s) SARS-COV-2 (COVID-19) vaccine, UNSPECIFIED 10/30/2020 12:00:00 A M EDT completed 10/30/2020 [facility] ([facility]) COVID-19 VACCINE Todd 10/30/2020 12:00:00 AM EDT completed LizticSIIS Vaccine Series Complete: YESThis Data wa s Submitted to [facility] Via [facility]. Medications Medication Brand Name Start Date Product Form Dose Route Admi nistrative Instructions Pharmacy Instructions Status Indications Reaction Description Data Source(s) Acetaminophen 325 MG Oral Tablet Acetaminophen 325 MG Oral T ablet 12/12/2020 12:00:00 AM EDT 650 mg Oral active Take 2 tablets by mouth every 8 (eight) hours as needed for up to 10 days [facility] Thiamine 100 MG Oral Tablet Thiamine HCl 100 MG Oral T ablet (B-1) Thiamine HCl 100 MG Oral Tablet (B-1) 12/12/2020 12:00:00 AM EDT 100 mg Oral active [facility] MG Oral Tablet Lisinopril 5 MG Oral Table t (PRINIVIL,ZESTRIL) Lisinopril 5 MG Oral Tablet (PRINIVIL,ZESTRIL) 12/12/2020 12:00:00 AM EDT 5 mg Oral active Take 1 tablet by mouth d [facility] pantoprazole 40 MG Delayed Release Oral Tablet pantoprazole (PROTONIX) EC tablet 40 mg pantoprazole (PROTONIX) EC tablet 40 mg 12/11/2020 07:30:00 AM E DT 40 mg Oral active 40 mg, Ora l, Before Breakfast, First dose (after last modification) on Sun12/11/20 at 0730, For 5 doses
Do not crush or chew
[facility] Medication administered onsite Acetaminophen 325 MG Oral [...] mg from all sources in 24 hours.
[facility] Medication administered onsite Oxycodone Hydrochloride 5 MG Oral Tablet oxyCODONE (ROXICODONE) immediate release tablet 5 mg oxyCODONE (ROXICODONE) immediate release tablet 5 mg 12/10/2020 04:45:00 PM EDT 5 mg Oral completed 5 mg, Oral, Once, On Sun12/10/20 at 1645, For 1 dose
Oxycodone immediate release is limited to 10 mg per dose. Higher doses ( only) require Pain Service consultation and approval.
[facility] Medication administered onsite fentaNYL (SUBLIMAZE) (PF) injection 1247-4651-10 12/10/2020 12:18:14 PM EDT completed Code/Trauma Medicati on, Starting on Sun12/10/[address] [place] [address] Medication administered onsite 2 ML Midazolam 1 MG/ML Injection midazolam (PF) (VERSE D) injection midazolam (PF) (VERSED) injection 12/10/2020 12:10:25 PM EDT aborted Code/Trauma Medication, Starting on Sun12/10/[address] [place] [address] Medication administered onsite fentaNYL (SUBLIMAZE) (PF) injection [id number] 12/10/2020 12:10:02 PM EDT aborted Code/Trauma Medicati on, Starting on Sun12/10/[address] [place] [address] Medication administered onsite 2 ML Midazolam 1 MG/ML Injection midazolam (PF) (VERSE D) injection midazolam (PF) (VERSED) injection 12/10/2020 12:09:08 PM EDT aborted Code/Trauma Medication, Starting on Sun12/10/20 at 1209 [facility] Medication administered onsite fentaNYL (SUBLIMAZE) (PF) injection [id number] 12/10/2020 12:08:42 PM EDT aborted Code/Trauma Medicati on, Starting on Sun12/10/20 at 1208 [facility] Medication administered onsite phytonadione (VITAMIN K1) 1 mg/mL oral solution 10 mg 12/09/2020 07:35:00 PM EDT 10 mg Oral completed 10 mg, Oral, Daily Standard, First dose on Sun12/09/20 at 1945, For 3 days [facility] Medication administered onsite NaCl infusion 0.9 % 7892-6723-54 12/09/2020 07:00:00 PM EDT Intravenous aborted at 100 mL/hr, Intrav enous, Continuous, Starting on Sun12/09/20 at 1900, For 24 hours [facility] Medication administered onsite Bisacodyl 5 MG Delayed Release Oral Tablet bisacodyl ( DULCOLAX) EC tablet 20 mg bisacodyl (DULCOLAX) EC tablet 20 mg 12/09/2020 05:45:00 PM EDT 20 mg Oral completed 20 mg, Oral, Onc e, On Sun12/09/20 at 1745, For 1 dose
Do not crush or chew
[facility] Medication administered onsite pantoprazole 40 MG Delayed Release Oral Tablet pantoprazole (PROTONIX) EC tablet 40 mg pantoprazole (PROTONIX) EC tablet 40 mg 12/09/2020 05:30:00 PM E DT 40 mg Oral aborted 40 mg, Ora l, Two times daily before breakfast and dinner, First dose on Sun12/09/20 at 1730, For 30 days
Do not crush or chew
[facility] Medication administered onsite 2 ML Midazolam 1 MG/ML Injection midazolam (PF) (VERSE D) injection midazolam (PF) (VERSED) injection 12/09/2020 05:04:35 PM EDT completed Code/Trauma Medication, Starting on Sun12/09/20 at 1704 [facility] Medication administered onsite fentaNYL (SUBLIMAZE) (PF) injection [id number] 12/09/2020 05:04:11 PM EDT completed Code/Trauma Medicati on, Starting on Carol 12/09/20 at 1704 [facility] Medication administered onsite 2 ML Midazolam 1 MG/ML Injection midazolam (PF) (VERSE D) injection midazolam (PF) (VERSED) injection 12/09/2020 05:02:04 PM EDT completed Code/Trauma Medication, Starting on Carol 12/09/20 at 1702 [facility] Medication administered onsite fentaNYL (SUBLIMAZE) (PF) injection [id number] 12/09/2020 05:01:47 PM EDT completed Code/Trauma Medicati on, Starting on Carol 12/09/20 at 1701 [facility] Medication administered onsite NaCl infusion 0.9 % [id number] 12/09/2020 03:00:00 PM EDT Intravenous aborted at 100 mL/hr, Intrav enous, Continuous, Starting on Carol 12/09/20 at 1500, For 24 hours [facility] Medication administered onsite Oxycodone Hydrochloride 5 MG [...] only) require Pain Service consultation and approval.
[facility] Medication administered onsite Escitalopram 10 MG Oral Tablet escitalopram (LEXAPRO) tablet 20 mg escitalopram (LEXAPRO) tablet 20 mg 12/09/2020 09:00:00 AM EDT 20 mg Oral active 20 mg, Oral, Daily Standard, First dose on Carol 12/09/20 at 0900, For 30 days [facility] Medication administered onsite multivitamin tablet 1 tablet [id number] 12/09/2020 09:00:00 AM EDT 1 {tbl} Oral active 1 tablet, Oral , Daily Standard, First dose on Carol 12/09/20 at 0900, For 30 days [facility] Medication administered onsite Ceftriaxone 1000 MG Injection cefTRIAXone (ROCEPHIN) i nfusion 1 g (premix) cefTRIAXone (ROCEPHIN) infusion 1 g (premix) 12/09/2020 09:00:00 AM EDT 1 g Intravenous aborted 1 g, Intraven ous, at 100 mL/hr, Daily Standard, First dose on Carol 12/09/20 at 0900, For 4 doses
Discouraged Uses: Empiric treatment of post-surgical meningitis (ceftazidime preferred)
[facility] Medication administered onsite Oxycodone Hydrochloride 5 MG Oral Tablet oxyCODONE (ROXICODONE) immediate release tablet 2.5 mg oxyCODONE (ROXICODONE) immediate release tablet 2.5 mg 12/09/2020 08:45:00 AM EDT 2.5 mg Oral completed 2.5 mg, Oral, Once, On Carol 12/09/20 at 0845, For 1 dose
Oxycodone immediate release is limited to 10 mg per dose. Higher doses ( only) require Pain Service consultation and approval.
[facility] Medication administered onsite NaCl infusion 0.9 % [id number] 12/09/2020 07:45:00 AM EDT Intravenous aborted at 200 mL/hr, Intrav enous, Continuous, Starting on Carol 12/09/20 at 0745, For 12 hours [facility] Medication administered onsite pantoprazole 4 MG/ML Injectable Solution pantoprazole (PROTONIX) injection 80 mg pantoprazole (PROTONIX) injection 80 mg 12/08/2020 11:45:00 PM EDT 80 mg Intravenous completed 80 mg, Intrav enous, Once, On Sun12/08/20 at 2345, For 1 dose [facility] Medication administered onsite pantoprazole (PROTONIX) 0.4 mg/mL in sodium chloride 0.9 % 2 50 mL infusion 12/08/2020 11:45:00 PM EDT 8 mg/h Intravenous aborted 8 mg/hr (20 mL/hr), Intravenous, at 20 mL/hr, Continuous, Starting on Sun12/08/20 at 2345, For 30 days
Indication: Active GI bleed [facility] Medication administered onsite 1 ML Octreotide 0.05 MG/ML Prefilled Syr moreno octreotide (SANDOSTATIN) injection 50 mcg octreotide (SANDOSTATIN) injection 50 mcg 12/08/2020 11:45:00 PM EDT 50 ug Intravenous completed 50 mcg, Intravenous, Once, On Sun12/08/20 at 2345, For 1 dose [facility] Medication administered onsite octreotide (SANDOSTATIN) 5 mcg/mL in sodium chloride 0.9 % 2 50 mL infusion 12/08/2020 11:45:00 PM EDT 50 ug/h Intravenous aborted 50 mcg/hr (10 mL/hr), Intravenous, at 10 mL/hr, Continuous, Starting on Sun12/08/20 at 2345, For 30 days [facility] Medication administered onsite thiamine (B-1) 500 mg in sodium chloride 0.9 % 50 mL IVPB 12/08/2020 11:45:00 PM EDT 500 mg Intravenous active 500 mg, Intravenous, Administer over 30 Minutes, Daily Standard, First dose on Sun12/08/20 at 2345, For 30 days [facility] Medication administered onsite folic acid 1 mg in sodium chloride 0.9 % 50 mL IVPB 12/08/2020 11:45:00 PM EDT 1 mg Intravenous active 1 mg , Intravenous, Administer over 30 Minutes, Daily Standard, First dose on Sun12/08/20 at 2345, For 30 days [facility] Medication administered onsite NaCl infusion 0.9 % [id number] 12/08/2020 11:30:00 PM EDT Intravenous aborted at 200 mL/hr, Intrav enous, Continuous, Starting on Sun12/08/20 at 2330, For 12 hours [facility] Medication administered onsite 50 ML Magnesium Sulfate [...] 16 mEq (2 g) q1h x 3
[facility] Medication administered onsite Folic Acid 1 MG Oral Tablet Folic Acid 1 MG Oral Table t (FOLVITE) Folic Acid 1 MG Oral Tablet (FOLVITE) 2020 12:00:00 AM EDT 1 mg Oral active Take 1 tablet by mouth daily [facility] Vitamin B 12 0.25 MG Oral Tablet Cyanocobalamin 250 MC G Oral Tablet Cyanocobalamin 250 MCG Oral Tablet 2020 12:00:00 AM EDT 250 ug Oral active Take 1 tablet by mouth daily [facility] pantoprazole 40 MG Delayed Release Oral Tablet Pantoprazole Sodium 40 MG Oral Tablet Delayed Release (Protonix) Pantoprazole Sodium 40 MG Oral Tablet De layed Release (Protonix) 11/17/2020 12:00:00 AM EDT 40 mg Oral active Take 1 tablet by mouth daily [facility] Clindamycin 300 MG Oral Capsule clindamy bharti HCl 300 mg capsule TAKE ONE CAPSULE BY MOUTH EVERY SIX HOURS UNTIL GONE clindamycin HCl 300 mg capsule TAKE ONE CAPSULE BY MOUTH EVERY SIX HOURS UNTIL GONE completed clindamycin 300 MG Oral Capsule [facility] ([facility]) duloxetine 60 MG Delayed Release Oral Ca psule duloxetine 60 mg capsule,delayed release TAKE ONE CAPSULE BY MOUTH ONCE DAILY duloxetine 60 mg capsule,delayed release TAKE ONE CAPSULE BY MOUTH ONCE DAILY completed duloxetine 60 MG Delayed Release Oral Capsule SUKI ([facility]) Lisinopril 30 MG Oral Tablet Lisinopril 30 MG Oral Tab let (ZESTRIL) Lisinopril 30 MG Oral Tablet (ZESTRIL) 30 mg Oral aborted Take 30 mg by mouth daily [facility] Insurance Providers Payer name Policy type / Coverage type Policy ID Covered republican ID Covered republican's relationship to see Policy See Plan Information Medicaid S [id number] S [id number] Medicaid S [id number] S [id number] [facility] COMMUNITY PLAN [facility] [id number] SP [id number] Managed Care - Community Plan [facility] P [id number] S [id number] Medicaid S [id number] S [id number] [facility] COMMUNITY PLAN [facility] [id number] SP [id number] Managed Care [facility] Community Plan P [id number] S [id number] [facility] [id number] SP [id number] Managed Care - Community Plan [facility] P [id number] S [id number] Managed Care - [facility] Community Plan P [id number] S [id number] [facility] I [id number] Self [id number] [facility] I [id number] Self [id number] [facility] I [id number] Self [id number] MEDICAID [id number] SP [id number] MEDICAID M [id number] S [id number] SELF PAY ONLY [id number] SP [id number] SELF PAY ONLY [id number] SP [id number] UNHC COMMUNITY PLAN MCDO [id number] SP [id number] Managed Care BCBS S [id number] S [id number] SELF PAY UNAVAILABLE SP [facility] [id number] SP [id number] HMO BLUE [id number] SP [id number] Managed Care [facility] O UNAVAILABLE S UNAVAILABLE [facility]) O [id number] S [id number] UNHC COMMUNITY PLAN MCDO [id number] SP [id number] ANSI-Medicaid [id number] ANSI-Medicaid [id number] ANSI-Medicaid [id number] [facility]-Med[facility] [id number] [facility]ly [facility] Maintenance [facility] ([facility]) [id number] Self [id number] Self Pay P None S None Managed Care Nadir P [id number] S [id number] [facility] (O) [id number] [facility] [id number] [facility] [id number] Problems, Conditions, and Diagnoses Code Display Name Description Problem Type Effective Dates Data Source(s) [id number] Fitting procedure Fitting Procedure Problem 03/04 06:13:25 PM EDT [facility]) Surgeries/Procedures Procedure Description Date Indications Data Source(s) BLOOD COUNT COMPLETE AUTOMATED <td>CBC</td><td>Timed</ td><td>12/12/2020 5:28 AM EDT</td><td></td><td> </td> 12/12/2020 05:28:00 AM [facility] PHOSPHORUS INORGANIC <td>PHOSPHORUS LEVEL</td><td >Routine</td><td>12/12/2020 5:28 AM EDT</td><td></td><td> </td> 12/12/2020 05:28:00 AM [facility] MAGNESIUM <td>MAGNESIUM LEVEL</td><td> Routine</td><td>12/12/2020 5:28 AM EDT</td><td></td><td> </td> 12/12/2020 05:28:00 AM [facility] BASIC METABOLIC PANEL CALCIUM TOTAL <td>BASIC METABOLI C PANEL</td><td>Routine</td><td>12/12/2020 5:28 AM EDT</td><td></td><td> </td> 12/12/2020 05:28:00 AM [facility] BLOOD COUNT COMPLETE AUTOMATED <td>CBC</td><td>Timed</ td><td>12/11/2020 3:52 PM EDT</td><td></td><td> </td> 12/11/2020 03:52:00 PM [facility] BLOOD COUNT COMPLETE AUTOMATED <td>CBC</td><td>Timed</ td><td>12/11/2020 6:09 AM EDT</td><td></td><td> </td> 12/11/2020 06:09:00 AM [facility] PHOSPHORUS INORGANIC <td>PHOSPHORUS LEVEL</td><td >Routine</td><td>12/11/2020 6:09 AM EDT</td><td></td><td> </td> 12/11/2020 06:09:00 AM [facility] MAGNESIUM <td>MAGNESIUM LEVEL</td><td> Routine</td><td>12/11/2020 6:09 AM EDT</td><td></td><td> </td> 12/11/2020 06:09:00 AM [facility] BASIC METABOLIC PANEL CALCIUM TOTAL <td>BASIC METABOLI C PANEL</td><td>Routine</td><td>12/11/2020 6:09 AM EDT</td><td></td><td> </td> 12/11/2020 06:09:00 AM [facility] BLOOD COUNT COMPLETE AUTOMATED <td>CBC</td><td>Timed</ td><td>12/10/2020 5:47 PM EDT</td><td></td><td> </td> 12/10/2020 05:47:00 PM [facility] BASIC METABOLIC PANEL CALCIUM TOTAL <td>BASIC METABOLI C PANEL</td><td>Routine</td><td>12/10/2020 1:07 PM EDT</td><td></td><td> </td> 12/10/2020 01:07:00 PM [facility] BLOOD COUNT COMPLETE AUTOMATED <td>CBC</td><td>Timed</ td><td>12/10/2020 10:13 AM EDT</td><td></td><td> </td> 12/10/2020 10:13:00 AM [facility] CALCIUM IONIZED <td>CALCIUM, IONIZED</td><td >Routine</td><td>12/10/2020 10:13 AM EDT</td><td></td><td> </td> 12/10/2020 10:13:00 AM [facility] PHOSPHORUS INORGANIC <td>PHOSPHORUS LEVEL</td><td >Routine</td><td>12/10/2020 5:09 AM EDT</td><td></td><td> </td> 12/10/2020 05:09:00 AM [facility] MAGNESIUM <td>MAGNESIUM LEVEL</td><td> Routine</td><td>12/10/2020 5:09 AM EDT</td><td></td><td> </td> 12/10/2020 05:09:00 AM [facility] COMPREHENSIVE METABOLIC PANEL <td>COMPREHENSIVE METABO LIC PANEL</td><td>Routine</td><td>12/10/2020 5:09 AM EDT</td><td></td><td> </td> 12/10/2020 05:09:00 AM [facility] BLOOD COUNT COMPLETE AUTOMATED <td>CBC</td><td>Timed</ td><td>12/10/2020 12:59 AM EDT</td><td></td><td> </td> 12/10/2020 12:59:00 AM [facility] Screening colonoscopy (procedure) <td>COLONOSCOPY</td> <td></td><td>12/10/2020 12:00 AM EDT</td><td></td><td></td> 12/10/2020 12:00:00 AM [facility] UPPER GI ENDOSCOPY; DX, W/WO SPECIMEN COLLECTION, BRUS RADHA/WASHING (SEP PROC) <td>UPPER GI ENDOSCOPY; DX, W/WO SPECIMEN COLLECTION, BRUSHING/WASHING (SEP PROC)</td><td></td><td>12/09/2020 5:00 PM EDT</td><td> Upper GI bleed</td><td></td> 12/09/2020 05:00:00 PM EDT - 12/09/2020 05:15:00 PM [facility] BLOOD COUNT COMPLETE AUTOMATED <td>CBC</td><td>Timed</ td><td>12/09/2020 4:06 PM EDT</td><td></td><td> </td> 12/09/2020 04:06:00 PM [facility] GLUCOSE QUANTITATIVE BLOOD XCPT REAGENT STRIP <td>POCT GLUCOSE, DOCKED</td><td>Routine</td><td>12/09/2020 12:35 PM EDT</td><td></td><td> </td> 12/09/2020 12:35:00 PM [facility] TRANSFUSE RBC (ONCE) <td>TRANSFUSE RBC (ONCE)</td ><td>STAT</td><td>12/09/2020 11:00 AM EDT</td><td></td><td></td> 12/09/2020 11:00:50 AM [facility] CALCIUM IONIZED <td>CALCIUM, IONIZED</td><td >Routine</td><td>12/09/2020 10:15 AM EDT</td><td></td><td> </td> 12/09/2020 10:15:00 AM [facility] ULTRASOUND ABDOMINAL REAL TIME W/IMAGE LIMITED <td>US ABDOMEN LIMITED [id number]</td><td>Routine</td><td>12/09/2020 10:10 AM EDT</td><td></td><td> </td> 12/09/2020 10:10:00 AM [facility] CULTURE BACTERIAL BLOOD AEROBIC W/ID ISOLATES <td>BLOO D CULTURE</td><td>Routine</td><td>12/09/2020 6:04 AM EDT</td><td></td><td></td> 12/09/2020 06:04:00 AM [facility] BLOOD COUNT COMPLETE AUTOMATED <td>CBC</td><td>Timed</ td><td>12/09/2020 6:04 AM EDT</td><td></td><td> </td> 12/09/2020 06:04:00 AM [facility] PHOSPHORUS INORGANIC <td>PHOSPHORUS LEVEL</td><td >Routine</td><td>12/09/2020 6:04 AM EDT</td><td></td><td> </td> 12/09/2020 06:04:00 AM [facility] MAGNESIUM <td>MAGNESIUM LEVEL</td><td> Routine</td><td>12/09/2020 6:04 AM EDT</td><td></td><td> </td> 12/09/2020 06:04:00 AM [facility] COMPREHENSIVE METABOLIC PANEL <td>COMPREHENSIVE METABO LIC PANEL</td><td>Routine</td><td>12/09/2020 6:04 AM EDT</td><td></td><td> </td> 12/09/2020 06:04:00 AM [facility] TRANSFUSE RBC (ONCE) <td>TRANSFUSE RBC (ONCE)</td ><td>STAT</td><td>12/09/2020 5:45 AM EDT</td><td></td><td></td> 12/09/2020 05:45:38 AM [facility] URNLS DIP STICK/TABLET REAGENT AUTO MICROSCOPY <td>URI NALYSIS WITH REFLEX URINE CULTURE</td><td>STAT</td><td>12/09/2020 2:02 AM EDT</td><td></td><td> </td> 12/09/2020 02:02:00 AM [facility] CULTURE BACTERIAL BLOOD AEROBIC W/ID ISOLATES <td>BLOO D CULTURE</td><td>Routine</td><td>12/09/2020 12:07 AM EDT</td><td></td><td></td> 12/09/2020 12:07:00 AM [facility] UPPER GI ENDOSCOPY <td>UPPER GI ENDOSCOPY</td>< td></td><td>12/09/2020 12:00 AM EDT</td><td></td><td></td> 12/09/2020 12:00:00 AM EDT [facility] COVID-19 PCR <td>COVID-19 PCR</td><td>Rou jason</td><td>12/08/2020 11:59 PM EDT</td><td></td><td> </td> 12/08/2020 11:59:00 PM [facility] THROMBOPLASTIN TIME PARTIAL PLASMA/WHOLE BLOOD <td>PAR TIAL THROMBOPLASTIN TIME (PTT)</td><td>STAT</td><td>12/08/2020 11:59 PM EDT</td><td></td><td> </td> 12/08/2020 11:59:00 PM [facility] PROTHROMBIN TIME <td>PROTIME INR</td><td>STAT </td><td>12/08/2020 11:59 PM EDT</td><td></td><td> </td> 12/08[facility] <td>CBC</td><td>Timed</ td><td>12/08/2020 11:59 PM EDT</td><td></td><td> </td> 12/08/2020 11:59:00 PM [facility] BLOOD TYPING ABO <td>TYPE AND SCREEN</td><td> STAT</td><td>12/08/2020 11:59 PM EDT</td><td></td><td> </td> 12/08/2020 11:59:00 PM [facility] LIPASE <td>LIPASE LEVEL</td><td>STA T</td><td>12/08/2020 11:59 PM EDT</td><td></td><td> </td> 12/08/2020 11:59:00 PM [facility] COMPREHENSIVE METABOLIC PANEL <td>COMPREHENSIVE METABO LIC PANEL</td><td>Routine</td><td>12/08/2020 11:59 PM EDT</td><td></td><td> </td> 12/08/2020 11:59:00 PM [facility] Results ID Date Data Source [id number] 12/12/2020 05:24:26 PM [facility] Name Value Range Interpretation Code Description Data Lou rce(s) Supporting Document(s) Discharge Summary [facility] VHQKEw6bRdTMSpVa21/FQPkeVVCbu3HdPSgaQMj8OSasROUyE7LtYDW8bE2aJQW0AErUQoRhKdEoEvI2 lbm [file] Maria Guadalupe/hnmogyK2MD76m1staJePzbEwy2MfUJFX7kw/iG [file] SzTnZzGhRFr9JyFlEA9BFn3GWtT4DER0nCDoEb6CWyWwIBVPBfLiXT4VCOi= ID Date Data Source [id number] 12/12/2020 06:08:11 AM [facility] Name Value Range Interpretation Code Description Data Lou rce(s) Supporting Document(s) Leukocytes [#/volume] in Blood by Automated count 5.5 10*3/uL 4-10 [facility] Erythrocytes [#/volume] in Blood by Automated count 2.87 10*6/uL 4.6- 6.1 L [facility] Hemoglobin [Mass/volume] in Blood 7.8 g/dL 13.5-18 L [facility] Hematocrit [Volume Fraction] of Blood by Automated count 24.3 % 4 1-53 L [facility] Erythrocyte mean corpuscular volume [Entitic volume] by Auto mated count 84.8 fL 80-96 [facility] Erythrocyte mean corpuscular hemoglobin [Entitic mass] by Automated count 27.3 pg 27-33 [facility] Erythrocyte mean corpuscular hemoglobin concentration [Mass/volume] by Automated count 32.2 [facility].0[facility] width [Ratio] by Automated count 17.3 % 11.5-14.5 H [facility] Platelets [#/volume] in Blood by Automated count 112 10*3/uL 150-400 L [facility] ID Date Data Source [id number] 12/12/2020 06:27:20 AM [facility] Name Value Range Interpretation Code Description Data Lou rce(s) Supporting Document(s) Bicarbonate [Moles/volume] in Serum 23 mmol/L 22-29 [facility] Chloride [Moles/volume] in Serum or Plasma 102 mmol/L 98-107 [facility] Creatinine [Mass/volume] in Serum or Plasma 0.55 mg/dL 0.70-1.20 L [facility] Glucose [Mass/volume] in Serum or Plasma 102 mg/dL 70-140 [facility] Potassium [Moles/volume] in Serum or Plasma 3.5 mmol/L 3.4-5.1 [facility] Sodium [Moles/volume] in Serum or Plasma 133 mmol/L 136-145 L [facility] Urea nitrogen [Mass/volume] in Serum or Plasma 5 mg/dL 6-20 L [facility] Anion gap 3 in Serum or Plasma 9 mmol/L 8-15 [facility] Osmolality of Serum or Plasma by calculation 274 mosm/kg 275-300 [facility] Creatinine/Urea nitrogen [Mass Ratio] in Serum or Plasma 9 [facility] Calcium [Mass/volume] in Serum or Plasma 8.0 mg/dL 8.6-10.0 L [facility] Glomerular filtration rate/1.73 sq M pre dicted among non-blacks [Volume Rate/Area] in Serum or Plasma by Creatinine-based formula (MDRD) >6 0 [facility] Glomerular filtration rate/1.73 sq M pre dicted among blacks [Volume Rate/Area] in Serum or Plasma by Creatinine-based formula (MDRD) >60 [facility] ID Date Data Source [id number] 12/12/2020 06:27:20 AM [facility] Value Range Interpretation Code Description Data Lou rce(s) Supporting Document(s) Phosphate [Mass/volume] in Serum or Plasma 3.1 mg/dL 2.5-4.5 [facility] ID Date Data Source [id number] 12/12/2020 06:27:20 AM EDT [facility] Value Range Interpretation Code Description Data Lou rce(s) Supporting Document(s) Magnesium [Mass/volume] in Serum or Plasma 2.0 mg/dL 1.6-2.6 [facility] ID Date Data Source [id number] 12/11/2020 04:51:04 PM EDT [facility] Value Range Interpretation Code Description Data Lou rce(s) Supporting Document(s) Leukocytes [#/volume] in Blood by Automated count 5.3 10*3/uL 4-10 [facility] Erythrocytes [#/volume] in Blood by Automated count 2.88 10*6/uL 4.6- 6.1 L [facility] Hemoglobin [Mass/volume] in Blood 8.2 g/dL 13.5-18 L [facility] Hematocrit [Volume Fraction] of Blood by Automated count 24.5 % 4 1-53 L [facility] Erythrocyte mean corpuscular volume [Entitic volume] by Auto mated count 84.9 fL 80-96 [facility] Erythrocyte mean corpuscular hemoglobin [Entitic mass] by Automated count 28.5 pg 27-33 [facility] Erythrocyte mean corpuscular hemoglobin concentration [Mass/volume] by Automated count 33.5 g/dL 32.0-36.0 [facility] E[facility]th[facility] distribution width [Ratio] by Automated count 16.9 % 11.5-14.5 H [facility] Platelets [#/volume] in Blood by Automated count 105 10*3/uL 150-400 L [facility] ID Date Data Source [id number] 12/11/2020 03:28:44 PM EDT [facility] Name Value Range Interpretation Code Description Data Lou rce(s) Supporting Document(s) History and Physical [facility] JETMQp7iCvVIAoBw16/KBIbrWLCxr3OhGQwrYOn7NTyhQJSlQ1HgADP1xN8aNKH0JAtCQeKaQcDaXdD5 lbm [file] AgICAgICAgICAgICAgICAgICAgICAgICAgICAgICAgICAgICAgICAgICAgICAgICAgICAgICAgICAgIC AgICAgICAgICAgICAgDQogICAgICAgICAgICAgICAg ICAgICAgICAgICAgICAgICAgICAgICAgICAgICAgICAgICAgICAgICAgICAgICAgICAgICAgICAgICAg ICAgICAgICAgICAgICAgICAgICAgICAgDQogICAgICAgICAgICAgICAgICAgICAgICAgICAgICAgICAg ICAgICAgICAgICAgICAgICAgICAgICAgICAgICAgIC AgICAgICAgICAgICAgICAgICAgICAgICAgICAgICAgICAgDQogICAgICAgICAgICAgICAgICAgICAgIC AgICAgICAgICAgICAgICAgICAgICAgICAgICAgICAgICAgICAgICAgICAgICAgICAgICAgICAgICAgIC AgICAgICAgICAgICAgICAgDQogICAgICAgICAgICAg ICAgICAgICAgICAgICAgICAgICAgICAgICAgICAgICAgICAgICAgICAgICAgICAgICAgICAgICAgICAg ICAgICAgICAgICAgICAgICAgICAgICAgICAgDQogICAgICAgICAgICAgICAgICAgICAgICAgICAgICAg ICAgICAgICAgICAgICAgICAgICAgICAgICAgICAgIC AgICAgICAgICAgICAgICAgICAgICAgICAgICAgICAgICAgICAgDQogICAgICAgICAgICAgICAgICAgIC AgICAgICAgICAgICAgICAgICAgICAgICAgICAgICAgICAgICAgICAgICAgICAgICAgICAgICAgICAgIC AgICAgICAgICAgICAgICAgICAgDQogICAgICAgICAg ICAgICAgICAgICAgICAgICAgICAgICAgICAgICAgICAgICAgICAgICAgICAgICAgICAgICAgICAgICAg ICAgICAgICAgICAgICAgICAgICAgICAgICAgICAgDQogICAgICAgICAgICAgICAgICAgICAgICAgICAg ICAgICAgICAgICAgICAgICAgICAgICAgICAgICAgIC AgICAgICAgICAgICAgICAgICAgICAgICAgICAgICAgICAgICAgICAgDQogICAgICAgICAgICAgICAgIC AgICAgICAgICAgICAgICAgICAgICAgICAgICAgICAgICAgICAgICAgICAgICAgICAgICAgICAgICAgIC WnZQTnHEGcNRHgZFAiHTLoSQVlVNDsTHz3R0cfIGJi GNBuTO1lYAy6Hx1+JItPQhMwUJM8nfEjgY2NFU4gm3AfXGqcOANhu5PiCUz4JD1WWRIdISwjCJ2KFSux ln2GYTMgLYKraNZAd3yzYyChCAN2GKShMwycCP8ILRArM7frgwSgJRZmAKWAVNzdMFESRTmbUZFKJOPk TMPiFoUrMyFvAPIsUB2QZNOzK888bfXkOD5HOa5QXo YoRO7sbb4ZRjMmDOPiImbFTvh6JYmvTJ5WsGFmcEJcPlRoFFXLTuQfI6lli5OlGzxxHDMJACgsEO4Rv3 VudCAxDQo+Vb6ABL5yh4WlTEpzUfKyWA0nrl3LKBaMRgPjF0XgzIvuAEjwGTBjlIMIDP7xqF16ERAtyU 8mSQNSTTIdcXX1QwYdTeAzUlKgYJN1ElMfVT7oWYta ON7DNCV7IDfuESHjRZCdK9tCDqGfWFUrXbTfpOvaQK1WPkLmG1TujvLloNPuWrCrBNBDTj8+DQplbmRv LedHWsH8NWAuo1ZyMMu0JJ9YSWTqDTjwJK3FHFCfuO5qCJulPP7YHxInXKUfLZJGFdOaN92czAGxYBg1 R1JpWqXmGWIxLzxuZPVeHHeyJoDuVJMoWmBcNUvnVU 4+ID4+AWyjOG5KAGzphsWcBJRvGq3UYQXqWDUnXZ3uLROeBBGpH7T9jSzjBXPZStHkA4cuapxpTG9sKO KmQ035bTtzlxAoWPT6ZWZyLd6MYTZfAZR6USQczXXnLrPaHWSWMTnaPS6RyZMdAPE5vU7jABxwIFXrFO HrR7hTOdXopMunQG39yNfdwpGfjSHbDUx+Li1FZD3s v0CuGJp6ljEjJQlwODQ4SLdkNXSwFSHdCOKyJFM7UPN6ROOYHoUmQCDnNKUrYHhfMEKcMCTbbe2CASNv UHOvLNR4WTErBRKaFJTbOQvfXHJbALHzGMGtUQEeTCSmKN2GFlCsGGOdPQWpUBzfSQWlFYMtjt3GTPDo JARwVBG7McNgVCAzKQXqLSzbSELsOGD5OaV4TNDoPZ QbSQ1GQdHrQSQyPRa8LIVsHKObREJsei8FIQLjJHOcRRR9OtQcLHDuHARoTGwtWWHxHILeNlY2VBJrQW YzEX3LDaIbAJJnGOX5THyfNQWhUGOuou2LYEDjMHIqYie5BAFzQGJvZVVbBOydFPBvPZR4DBx2KUHfNG LhFX7DTvJoEIXrQYxwASYbSUExAWEjtq0SHGSeSQEj JAO7OrXcNBFtROSdFZduOLSzZBSsPlX8HWHiJWWaSH9KXiNpCWAkOrO9ZTElNRPrRNMyff9FEKWlKWVw PPN1DpFwRXXhEXQiTFqlYHUaCIDoAMQ3LOCqGYQyEQ2BCxEuJEYyKtE8LFknCMPzBUPauf9KBQNxXRLj VOi0AoNxNRVvVBSgIDthSRVqVZMyYTZ7KXGkRSBdMY 6FYzMmRCJhMaNyBXqdUOUwAXZawr2ZFDDiGICnPlC8LYYhBCDlLJNxDJuiZFBtNXB0JzB3COBfSFVcZL 6TNaIwTKYfVvV6IQAlHZIaCSJyfa5VVVXiNESrBSMxJFWeEGNrMYAdVFtzTVYwBPK4UGGfNBHlHUYlGJ 3AHsImQIRdWkHtZkazFCTbYIPrtp7CJBZgVNByQmG2 RbYbEQKmQMAfEAstUCPoABC7Gle0DYMvKREvWE2DEfCmSDOvSeO3DqTmMCMlQGXick8FDJPdSWFgZfk0 FmScBMBzNAWsBYpsPCQjNRX7BHN6BWAgPGLqRO8ORpHbNNTkKcdwAXUgUFTuOIZqny4YAHBmMPHaRCN0 MUUpEOHiCTXzUPziBEIpGVMlXQH6ICBbEMBjAU5CTa SiTDQxHVMvIeDsSEXeTDEyyf3XWPJnNLM6UTB8YyYjWMTzXMZuVDw9yxFguGEmJXw7ZV8IC7OzifTlPz uRXb1Jl970SLQ8SPKlKd9KL1wvRz8aQXBwWNRZMu2HSRq7YlCxQqDcGdZhTyX5SoKlTCEtFGQaNUKhIY K0JYNkDqE+HPwbR0EjMYTjDvDoIgm2KwY7QlQyWPC0 DsS6HVSjFJF6Ps9dCOLLXv8+BUjpkBAlvDfbEPGUWnMlDwR8JFliTQWQAz0F ID Date Data Source [id number] 12/11/2020 06:57:52 AM [facility] Name Value Range Interpretation Code Description Data Lou rce(s) Supporting Document(s) Leukocytes [#/volume] in Blood by Automated count 4.6 10*3/uL 4-10 [facility] Erythrocytes [#/volume] in Blood by Automated count 2.74 10*6/uL 4.6- 6.1 L [facility] Hemoglobin [Mass/volume] in Blood 7.7 g/dL 13.5-18 L [facility] Hematocrit [Volume Fraction] of Blood by Automated count 23.0 % 4 1-53 L [facility] Erythrocyte mean corpuscular volume [Entitic volume] by Auto mated count 84.2 fL 80-96 [facility] Erythrocyte mean corpuscular hemoglobin [Entitic mass] by Automated count 28.1 pg 27-33 [facility] Erythrocyte mean corpuscular hemoglobin concentration [Mass/volume] by Automated count 33.3 g/dL 32.0-36.[facility] distribution width [Ratio] by Automated count 17.0 % 11.5-14.5 H [facility] Platelets [#/volume] in Blood by Automated count 105 10*3/uL 150-400 L [facility] ID Date Data Source [id number] 12/11/2020 08:31:44 AM [facility] Value Range Interpretation Code Description Data Lou rce(s) Supporting Document(s) Magnesium [Mass/volume] in Serum or Plasma 2.1 mg/dL 1.6-2.6 [facility] ID Date Data Source [id number] 12/11/2020 08:31:44 AM [facility] Value Range Interpretation Code Description Data Lou rce(s) Supporting Document(s) Bicarbonate [Moles/volume] in Serum 22 mmol/L 22-29 [facility] Chloride [Moles/volume] in Serum or Plasma 101 mmol/L 98-107 [facility] Creatinine [Mass/volume] in Serum or Plasma 0.52 mg/dL 0.70-1.20 L [facility] Glucose [Mass/volume] in Serum or Plasma 91 mg/dL 70-140 [facility] Potassium [Moles/volume] in Serum or Plasma 3.5 mmol/L 3.4-5.1 [facility] Sodium [Moles/volume] in Serum or Plasma 133 mmol/L 136-145 L [facility] Urea nitrogen [Mass/volume] in Serum or Plasma 6 mg/dL 6-20 [facility] Anion gap 3 in Serum or Plasma 10 mmol/L 8-15 [facility] Osmolality of Serum or Plasma by calculation 273 mosm/kg 275-300 L [facility] Creatinine/Urea nitrogen [Mass Ratio] in Serum or Plasma 12 [facility] Calcium [Mass/volume] in Serum or Plasma 7.6 mg/dL 8.6-10.0 L [facility] Glomerular filtration rate/1.73 sq M pre dicted among non-blacks [Volume Rate/Area] in Serum or Plasma by Creatinine-based formula (MDRD) >6 0 [facility] Glomerular filtration rate/1.73 sq M pre dicted among blacks [Volume Rate/Area] in Serum or Plasma by Creatinine-based formula (MDRD) >60 [facility] ID Date Data Source [id number] 12/11/2020 08:31:44 AM [facility] Name Value Range Interpretation Code Description Data Lou rce(s) Supporting Document(s) Phosphate [Mass/volume] in Serum or Plasma 3.0 mg/dL 2.5-4.5 [facility] ID Date Data Source [id number] 12/10/2020 05:53:09 PM [facility] Name Value Range Interpretation Code Description Data Lou rce(s) Supporting Document(s) History and Physical [facility] KHPJVd2yTfADMzOw89/GFMjvPPZat6YgYEypVIk9VHrxTAYlP4KjNKS9fW5nXYL5LSqCHtDyKuNlJoAm [facility] [file] SS2dVRHZPx7+NRxeoBOueEvkSGPYJaZ9DqyhPAbcMMPRLf6T ID Date Data Source [id number] 12/10/2020 05:53:04 PM EDT [facility] Name Value Range Interpretation Code Description Data [facility] rce(s) Supporting Document(s) History and Physical [facility] HVOFPr6pFpJZTeIm43/HBShgYBHwf3OxTIfuQVi6HQohNRGwV6DeHHL8lY5zBQC0OGoAEyXxQcPoTyOp lbm [file] AOcKXDWLIbm4AcoOPQqzD/EyZSM0Fdj+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+9Yg06iZJ/rfnh+MD/VGa7NxCuLyam/C79HX73v+3pTrbs 8P/bKSfeTuPiaTXv9bZ2LUH4RRMsBTexaPZuwxx9wG07bCG5/Cj1TAh7dKzryXO5kxJGStFKulkbpjK4 x8Z/9JRZGOajVXEmJiYOjzCOMhd0wFgUwh3Z5iJguo N27uxgngWO8e+qx3CiyfVfCLpNcYP8mqCf7kY6nVMQVRtnTaS3dh8RcQTa0rKzf6U/lbr91lFLwRCBmN MzKHUsdKHaE3jYX2J9ASnkO3UHWJgMqQHltG3l4E3pi4xzAmpjsHkO8m9QGb45aRG2nF9IWEcSA1TjPf LAIE4XQ7mICZkKajPA4SMehXTqCSzvkOcl+Bp9oPp9 Dnpk2Mrf09+WnU5p3HjxeReKG8Zz+Nv4oIKkR2aeu2571Ybqi185/qN72iWK7xx3yj6FjYJtoCy+tgYI PoxaBMt6Z+Tyt1YhkGeSbdO/ZLq5V6ppFb3bmCKDxRAidxYhcae3xF0spb+rc/W1bg/+H6Opu1JXIh5s +8fGLF4o3S139oZRKj19k59D7v/aCX3+sO9x/Q9lC4 [file] KdN9XYA3zSLoNy0HAtIuOENOVtPjZD9YEOf= ID Date Data Source [id number] 12/10/2020 05:52:44 PM EDT [facility] Name Value Range Interpretation Code Description Data Lou rce(s) Supporting Document(s) Consultation [facility] HCMTUg2fLgUPUbLo30/IGIljEPUmt7LkORxqNRi5NQuoVVNzF5BgCYC3xE0mJNF7ASxDUqTcZiRaGiLs lbm [file] SGdhbSJqsBjkRUXAKaIfLYV3EXpeHUIMQz0N ID Date Data Source [id number] 12/10/2020 06:22:48 PM EDT [facility] Name Value Range Interpretation Code Description Data Lou rce(s) Supporting Document(s) Leukocytes [#/volume] in Blood by Automated count 8.4 10*3/uL 4-10 [facility] Erythrocytes [#/volume] in Blood by Automated count 3.48 10*6/uL 4.6- 6.1 L [facility] Hemoglobin [Mass/volume] in Blood 9.7 g/dL 13.5-18 L [facility] Hematocrit [Volume Fraction] of Blood by Automated count 29.9 % 4 1-53 L [facility] Erythrocyte mean corpuscular volume [Entitic volume] by Auto mated count 85.9 fL 80-96 [facility] Erythrocyte mean corpuscular hemoglobin [Entitic mass] by Automated count 27.9 pg 27-33 [facility] Erythrocyte mean corpuscular hemoglobin concentration [Mass/volume] by Automated count 32.5 g/dL 32.0-36.0 [facility]th[facility] distribution width [Ratio] by Automated count 17.3 % 11.5-14.5 H [facility] Platelets [#/volume] in Blood by Automated count 127 10*3/uL 150-400 L [facility] ID Date Data Source [id number] [facility] Interpretation Code Description Data Lou rce(s) Supporting Document(s) Bicarbonate [Moles/volume] in Serum 22 mmol/L 22-29 [facility] Chloride [Moles/volume] in Serum or Plasma 102 mmol/L 98-107 [facility] Creatinine [Mass/volume] in Serum or Plasma 0.54 mg/dL 0.70-1.20 L [facility] Glucose [Mass/volume] in Serum or Plasma 84 mg/dL 70-140 [facility] Potassium [Moles/volume] in Serum or Plasma 3.9 mmol/L 3.4-5.1 [facility] Sodium [Moles/volume] in Serum or Plasma 132 mmol/L 136-145 L [facility] Urea nitrogen [Mass/volume] in Serum or Plasma 7 mg/dL 6-20 [facility] Anion gap 3 in Serum or Plasma 8 mmol/L 8-15 [facility] Osmolality of Serum or Plasma by calculation 271 mosm/kg 275-300 L [facility] Creatinine/Urea nitrogen [Mass Ratio] in Serum or Plasma 13 [facility] Calcium [Mass/volume] in Serum or Plasma 7.9 mg/dL 8.6-10.0 L [facility] Glomerular filtration rate/1.73 sq M pre dicted among non-blacks [Volume Rate/Area] in Serum or Plasma by Creatinine-based formula (MDRD) >6 0 [facility] Glomerular filtration rate/1.73 sq M pre dicted among blacks [Volume Rate/Area] in Serum or Plasma by Creatinine-based formula (MDRD) >60 [facility] ID Date Data Source [id number] 12/10/2020 10:56:25 AM [facility] Name Value Range Interpretation Code Description Data Lou rce(s) Supporting Document(s) Calcium.ionized [Moles/volume] in Arterial blood 1.08 mmol/L 1.13-1.3 2 [facility] ID Date Data Source [id number] 12/10/2020 10:55:28 AM [facility] Name Value Range Interpretation Code Description Data Lou rce(s) Supporting Document(s) Leukocytes [#/volume] in Blood by Automated count 6.5 10*3/uL 4-10 [facility] Erythrocytes [#/volume] in Blood by Automated count 3.30 10*6/uL 4.6- 6.1 [facility] Hemoglobin [Mass/volume] in Blood 9.2 g/dL 13.5-18 [facility] Hematocrit [Volume Fraction] of Blood by Automated count 28.1 % 4 1-53 L [facility] Erythrocyte mean corpuscular volume [Entitic volume] by Auto mated count 85.3 fL 80-96 [facility] Erythrocyte mean corpuscular hemoglobin [Entitic mass] by Automated count 27.8 pg 27-33 [facility] Erythrocyte mean corpuscular hemoglobin concentration [Mass/volume] by Automated count 32.7 g/dL 32.0-36.0 [facility] Erythrocyte distribution width [Ratio] by Automated count 17.3 % 11.5-14.5 H [facility] Platelets [#/volume] in Blood by Automated count 110 10*3/uL 150-400 L [facility] ID Date Data Source [id number] 12/10/2020 06:01:23 AM [facility] Name Value Range Interpretation Code Description Data Lou rce(s) Supporting Document(s) Magnesium [Mass/volume] in Serum or Plasma 2.2 mg/dL 1.6-2.6 [facility] ID Date Data Source [id number] 12/10/2020 06:01:23 AM [facility] Name Value Range Interpretation Code Description Data Lou rce(s) Supporting Document(s) Phosphate [Mass/volume] in Serum or Plasma 3.1 mg/dL 2.5-4.5 [facility] ID Date Data Source [id number] 12/10/2020 06:01:23 AM [facility] Name Value Range Interpretation Code Description Data Lou rce(s) Supporting Document(s) Albumin [Mass/volume] in Serum or Plasma by Bromocresol green (BCG) dye binding method 2.3 g/dL 3.5-5.2 L [facility] Bilirubin.total [Mass/volume] in Serum or Plasma 1.2 mg/dL <1.2 H [facility] Calcium [Mass/volume] in Serum or Plasma 7.5 mg/dL 8.6-10.0 L [facility] Chloride [Moles/volume] in Serum or Plasma 102 mmol/L 98-107 [facility] Creatinine [Mass/volume] in Serum or Plasma 0.57 mg/dL 0.70-1.20 L [facility] Glucose [Mass/volume] in Serum or Plasma 88 mg/dL 70-140 [facility] Alkaline phosphatase [Enzymatic activity/volume] in Serum or Plasma 104 U/L 40-129 [facility] Potassium [Moles/volume] in Serum or Plasma 3.8 mmol/L 3.4-5.1 [facility] Protein [Mass/volume] in Serum or Plasma 4.7 g/dL 6.4-8.3 L [facility] Sodium [Moles/volume] in Serum or Plasma 129 mmol/L 136-145 L [facility] Aspartate aminotransferase [Enzymatic activity/volume] in Serum or Plasma 145 U/L <40 H [facility] Urea nitrogen [Mass/volume] in Serum or Plasma 8 mg/dL 6-20 [facility] Osmolality of Serum or Plasma by calculation 265 mosm/kg 275-300 L [facility] Creatinine/Urea nitrogen [Mass Ratio] in Serum or Plasma 14 [facility] Bicarbonate [Moles/volume] in Serum 20 mmol/L 22-29 L [facility] Alanine aminotransferase [Enzymatic activity/volume] in Seru m or Plasma 54 U/L <41 H [facility] Anion gap 3 in Serum or Plasma 6 mmol/L 8-15 L [facility] Glomerular filtration rate/1.73 sq M pre dicted among non-blacks [Volume Rate/Area] in Serum or Plasma by Creatinine-based formula (MDRD) >6 0 [facility] Glomerular filtration rate/1.73 sq M pre dicted among blacks [Volume Rate/Area] in Serum or Plasma by Creatinine-based formula (MDRD) >60 [facility] ID Date Data Source [id number] 12/10/2020 01:34:51 AM EDT [facility] Name Value Range Interpretation Code Description Data Lou rce(s) Supporting Document(s) Leukocytes [#/volume] in Blood by Automated count 7.5 10*3/uL 4-10 [facility] Erythrocytes [#/volume] in Blood by Automated count 2.95 10*6/uL 4.6- 6.1 L [facility] Hemoglobin [Mass/volume] in Blood 8.1 g/dL 13.5-18 L [facility] Hematocrit [Volume Fraction] of Blood by Automated count 25.3 % 4 1-53 L [facility] Erythrocyte mean corpuscular volume [Entitic volume] by Auto mated count 85.9 fL 80-96 [facility] Erythrocyte mean corpuscular hemoglobin [Entitic mass] by Automated count 27.5 pg 27-33 [facility] Erythrocyte mean corpuscular hemoglobin concentration [Mass/volume] by Automated count 32.1 g/dL 32.0-36.0 [facility] Erythrocyte distribution width [Ratio] by Automated count 17.2 % 11.5-14.5 H [facility] Platelets [#/volume] in Blood by Automated count 105 10*3/uL 150-400 L [facility] ID Date Data Source [id number] 12/09/2020 06:15:27 PM EDT [facility] Name Value Range Interpretation Code Description Data Lou rce(s) Supporting Document(s) Consultation [facility] PFKCTb1vYyDSNyYn58/RIWkpEHHfe4NbSGriOUu7DBlmONBlL9CbRYF6gN7pTIA1UTnCQnZsAvJqKkZu lbm [file] BYHcRRMjDQQ0KGz1TSSzOvT+IR5wCFt+Od2Ej5PddaS0ljGgKMjdLYn5Iz3XVFYGJ5ISKk== ID Date Data Source [id number] 12/09/2020 05:06:16 PM EDT [facility] Name Value Range Interpretation Code Description Data Lou [facility](s) Supporting Document(s) Leukocytes [#/volume] in Blood by Automated count 6.0 10*3/uL 4-10 [facility] Erythrocytes [#/volume] in Blood by Automated count 3.13 10*6/uL 4.6- 6.1 L [facility] Hemoglobin [Mass/volume] in Blood 8.7 g/dL 13.5-18 L [facility] Hematocrit [Volume Fraction] of Blood by Automated count 26.6 % 4 1-53 L [facility] Erythrocyte mean corpuscular volume [Entitic volume] by Auto mated count 84.9 fL 80-96 [facility] Erythrocyte mean corpuscular hemoglobin [Entitic mass] by Automated count 27.9 pg 27-33 [facility] Erythrocyte mean corpuscular hemoglobin concentration [Mass/volume] by Automated count 32.9 g/dL 32.0-36.[facility] distribution width [Ratio] by Automated count 17.1 % 11.5-14.5 H [facility] Platelets [#/volume] in Blood by Automated count 100 10*3/uL 150-400 L [facility] ID Date Data Source [id number] 12/09/2020 12:45:01 PM EDT [facility] Name Value Range Interpretation Code Description Data Lou rce(s) Supporting Document(s) Glucose [Mass/volume] in Capillary blood by Glucometer 94 mg/dL 70- 140 [facility] ID Date Data Source [id number] 12/09/2020 11:21:01 AM [facility] US ABDOMEN LIMITED [id number] RESULTInte rpreted by:Jessica Lr DOStudy: ULTRASOUND ABDOMEN [...] rce(s) Supporting Document(s) ID Date Data Source [id number] 12/09/2020 11:01:04 AM [facility] Name Value Range Interpretation Code Description Data Lou rce(s) Supporting Document(s) Calcium.ionized [Moles/volume] in Arterial blood 1.13 mmol/L 1.13-1.3 2 [facility] ID Date Data Source [id number] 12/14/2020 10:43:44 AM [facility] Service Cmnt XXX-Imp : R ARMMicroorganis m XXX Cult : No growth 5 days Name Value Range Interpretation Code Description Data Lou rce(s) Supporting Document(s) ID Date Data Source [id number] 12/09/2020 06:24:47 AM [facility] Value Range Interpretation Code Description Data Lou rce(s) Supporting Document(s) Leukocytes [#/volume] in Blood by Automated count 6.9 10*3/uL 4-10 [facility] Erythrocytes [#/volume] in Blood by Automated count 2.54 10*6/uL 4.6- 6.1 L [facility] Hemoglobin [Mass/volume] in Blood 7.0 g/dL 13.5-18 L [facility] Hematocrit [Volume Fraction] of Blood by Automated count 21.3 % 4 1-53 L [facility] Erythrocyte mean corpuscular volume [Entitic volume] by Auto mated count 83.7 fL 80-96 [facility] Erythrocyte mean corpuscular hemoglobin [Entitic mass] by Automated count 27.4 pg 27-33 [facility] Erythrocyte mean corpuscular hemoglobin concentration [Mass/volume] by Automated count 32.7 g/dL 32.0-36.0 [facility]th[facility] distribution width [Ratio] by Automated count 17.1 % 11.5-14.5 [facility] Platelets [#/volume] in Blood by Automated count 107 10*3/uL 150-400 L [facility] ID Date Data Source [id number] 12/09/2020 06:41:24 AM [facility] Name Value Range Interpretation Code Description Data Lou rce(s) Supporting Document(s) Albumin [Mass/volume] in Serum or Plasma by Bromocresol green (BCG) dye binding method 2.1 g/dL 3.5-5.2 [facility] Bilirubin.total [Mass/volume] in Serum or Plasma 1.1 mg/dL <1.2 [facility] Calcium [Mass/volume] in Serum or Plasma 7.2 mg/dL 8.6-10.0 [facility] Chloride [Moles/volume] in Serum or Plasma 106 mmol/L 98-107 [facility] Creatinine [Mass/volume] in Serum or Plasma 0.47 mg/dL 0.70-1.20 [facility] Glucose [Mass/volume] in Serum or Plasma 81 mg/dL 70-140 [facility] Alkaline phosphatase [Enzymatic activity/volume] in Serum or Plasma 104 U/L 40-129 [facility] Potassium [Moles/volume] in Serum or Plasma 4.0 mmol/L 3.4-5.1 [facility] Protein [Mass/volume] in Serum or Plasma 4.3 g/dL 6.4-8.3 [facility] Sodium [Moles/volume] in Serum or Plasma 131 mmol/L 136-145 [facility] Aspartate aminotransferase [Enzymatic activity/volume] in Serum or Plasma 52 U/L <40 [facility] Urea nitrogen [Mass/volume] in Serum or Plasma 14 mg/dL 6-20 [facility] Osmolality of Serum or Plasma by calculation 272 mosm/kg 275-300 [facility] Creatinine/Urea nitrogen [Mass Ratio] in Serum or Plasma 29 [facility] Bicarbonate [Moles/volume] in Serum 19 mmol/L 22-29 L [facility] Alanine aminotransferase [Enzymatic activity/volume] in Seru m or Plasma 19 U/L <41 [facility] Anion gap 3 in Serum or Plasma 6 mmol/L 8-15 L [facility] Glomerular filtration rate/1.73 sq M pre dicted among non-blacks [Volume Rate/Area] in Serum or Plasma by Creatinine-based formula (MDRD) >6 0 [facility] Glomerular filtration rate/1.73 sq M pre dicted among blacks [Volume Rate/Area] in Serum or Plasma by Creatinine-based formula (MDRD) >60 [facility] ID Date Data Source [id number] 12/09/2020 09:48:45 AM EDT [facility] Name Value Range Interpretation Code Description Data Lou rce(s) Supporting Document(s) Magnesium [Mass/volume] in Serum or Plasma 1.7 mg/dL 1.6-2.6 [facility] ID Date Data Source [id number] [facility] Value Range Interpretation Code Description Data Lou rce(s) Supporting Document(s) Phosphate [Mass/volume] in Serum or Plasma 2.3 mg/dL 2.5-4.5 L [facility] ID Date Data Source [id number] 12/09/2020 02:18:20 AM EDT [facility] Name Value Range Interpretation Code Description Data Lou rce(s) Supporting Document(s) Color of Urine [facility] Clarity of Urine [facility] Specific gravity of Urine by Refractometry automated 1.010 1.003 -1.030 [facility] pH of Urine by Automated test strip 7.0 5.0-8.0 [facility] Protein [Mass/volume] in Urine by Automated test strip Neg [facility] Glucose [Mass/volume] in Urine by Automated test strip Neg [facility] Ketones [Mass/volume] in Urine by Automated test strip Neg [facility] Bilirubin.total [Presence] in Urine by Automated test strip Negative [facility] Hemoglobin [Presence] in Urine by Automated test strip Neg [facility] Leukocyte esterase [Presence] in Urine by Automated test strip Negative [facility] Nitrite [Presence] in Urine by Automated test strip Negati [facility] Leukocytes [#/area] in Urine sediment by Automated count 0 /HPF 0 -5 [facility] Erythrocytes [#/area] in Urine sediment by Automated count 0 /HPF 0-3 [facility] Service comment [facility] ID Date Data Source [id number] [facility]/14[facility]2020 10[facility]43[facility] XXX-Imp : L ARMMicroorganis m XXX Cult : No growth 5 days Name Value Range Interpretation Code Description Data Lou rce(s) Supporting Document(s) ID Date Data Source [id number] 12/[facility]2020 07[facility]07[facility] Name Value Range Interpretation Code Description Data Lou rce(s) Supporting Document(s) ABO and Rh group [Type] in Blood [facility] Blood group antibody screen [Presence] in Serum or Plasma [facility] Performed at [facility], Raquel brody Geeta, [id number] ID Date Data Source [id number] 12/08/2020 11:59:00 PM EDT [facility] Name Value Range Interpretation Code Description Data Lou rce(s) Supporting Document(s) SARS-CoV-2 RNA 2019 nCoV Real-Time RT-PCR: NOT DETECTED [facility] This lab was ordered by [facility] and reported by [facility]. ID Date Data Source [id number] 12/09/2020 09:30:29 AM EDT [facility] Name Value Range Interpretation Code Description Data Lou rce(s) Supporting Document(s) Specimen source [Identifier] of Unspecified specimen [facility] SARS-CoV-2 RNA 2019 nCoV Real-Time RT-PCR: NOT DETECTED [facility] Assay Performed [facility] Patients first test for [facility] Patient employed in healthcare setting [facility] Patient has symptoms related to [facility] When did you start to experience these symptoms [Date and time] [Phen X] [facility] Patient was hospitalized because of this [facility] patient was admitted to ICU for [facility] Patient resides in a congregate care setting [facility] status [facility] ID Date Data Source [id number] 12/09/2020 12:23:05 AM EDT [facility] Name Value Range Interpretation Code Description Data Lou rce(s) Supporting Document(s) Leukocytes [#/volume] in Blood by Automated count 11.0 10*3/uL 4-10 H [facility] Erythrocytes [#/volume] in Blood by Automated count 2.48 10*6/uL 4.6- 6.1 L [facility] Hemoglobin [Mass/volume] in Blood 6.6 g/dL 13.5-18 L [facility] Hematocrit [Volume Fraction] of Blood by Automated count 20.1 % 4 1-53 [facility] Called to and read back by fito starr rn [id number] [id number] at 0022 by 1522 Erythrocyte mean corpuscular volume [Entitic volume] by Auto mated count 81.1 fL 80-96 [facility] Erythrocyte mean corpuscular hemoglobin [Entitic mass] by Automated count 26.6 pg 27-33 L [facility] Erythrocyte mean corpuscular hemoglobin concentration [Mass/volume] by Automated count 32.7 g/dL 32.0-36.0 [facility] Erythrocyte distribution width [Ratio] by Automated count 16.2 % 11.5-14.5 H [facility] Platelets [#/volume] in Blood by Automated count 131 10*3/uL 150-400 L [facility] ID Date Data Source [id number] 12/09/2020 12:31:19 AM [facility] Value Range Interpretation Code Description Data Lou rce(s) Supporting Document(s) aPTT in Platelet poor plasma by Coagulation assay 31.0 s 24.0-33. 0 [facility] ID Date Data Source [id number] 12/09/2020 12:31:19 AM [facility] Value Range Interpretation Code Description Data Lou rce(s) Supporting Document(s) Prothrombin time (PT) 16.9 s 11.6-14.0 H [facility] INR in Platelet poor plasma by Coagulation assay 1.44 [facility] Routine intensity oral anticoagulation I NR is typically 2.0-3.0. Target INR must be clinically individualized. ID Date Data Source [id number] 12/09/2020 12:52:30 AM [facility] Value Range Interpretation Code Description Data Lou rce(s) Supporting Document(s) Lipase [Enzymatic activity/volume] in Serum or Plasma 226 U/L 13-6 0 H [facility] ID Date Data Source [id number] 12/09/2020 12:52:30 AM [facility] Value Range Interpretation Code Description Data Lou rce(s) Supporting Document(s) Albumin [Mass/volume] in Serum or Plasma by Bromocresol green (BCG) dye binding method 2.4 g/dL 3.5-5.2 L [facility] Bilirubin.total [Mass/volume] in Serum or Plasma 1.0 mg/dL <1.2 [facility] Calcium [Mass/volume] in Serum or Plasma 7.9 mg/dL 8.6-10.0 [facility] Chloride [Moles/volume] in Serum or Plasma 97 mmol/L 98-107 L [facility] Creatinine [Mass/volume] in Serum or Plasma 0.49 mg/dL 0.70-1.20 L [facility] Glucose [Mass/volume] in Serum or Plasma 92 mg/dL 70-140 [facility] Alkaline phosphatase [Enzymatic activity/volume] in Serum or Plasma 121 U/L 40-129 [facility] Potassium [Moles/volume] in Serum or Plasma 3.9 mmol/L 3.4-5.1 [facility] Protein [Mass/volume] in Serum or Plasma 4.8 g/dL 6.4-8.3 L [facility] Sodium [Moles/volume] in Serum or Plasma 125 mmol/L 136-145 L [facility] Aspartate aminotransferase [Enzymatic activity/volume] in Serum or Plasma 52 U/L <40 H [facility] Urea nitrogen [Mass/volume] in Serum or Plasma 17 mg/dL 6-20 [facility] Osmolality of Serum or Plasma by calculation 261 mosm/kg 275-300 L [facility] Creatinine/Urea nitrogen [Mass Ratio] in Serum or Plasma 35 [facility] Bicarbonate [Moles/volume] in Serum 22 mmol/L 22-29 [facility] Alanine aminotransferase [Enzymatic activity/volume] in Seru m or Plasma 21 U/L <41 [facility] Anion gap 3 in Serum or Plasma 6 mmol/L 8-15 L [facility] Glomerular filtration rate/1.73 sq M pre dicted among non-blacks [Volume Rate/Area] in Serum or Plasma by Creatinine-based formula (MDRD) >6 0 [facility] Glomerular filtration rate/1.73 sq M pre dicted among blacks [Volume Rate/Area] in Serum or Plasma by Creatinine-based formula (MDRD) >60 [facility] ID Date Data Source [id number] 12/08/2020 06:44:00 PM EDT [facility] Name Value Range Interpretation Code Description Data Lou rce(s) Supporting Document(s) SARS coronavirus 2 RNA [Presence] in Res piratory specimen by TOYA with probe detection NEGATIVE [facility] This lab was ordered by [facility] a nd reported by [facility]. ID Date Data Source [id number] 11/26/2020 08:42:12 AM EDT [facility] Name Value Range Interpretation Code Description Data Lou rce(s) Supporting Document(s) ED Provider Note [facility] YDDTDp0cXgSBAzWz65/OSKutWZTdx4PjFNckFGl6BIjdQJJiC7YbQNI5wN6yNAG1MLhPUyPiCmWpRqR4 lbm [file] AwMzQzNiAwMDAwMCBuDQowMDAwMDAzNjQwIDAwMDAw HG3YKuRjBBVgJJY3NnPrIKDmGYQtaf3PQAFeYDCnQuC5CRSjNVEmJNLpAMdnMEBqFSU9CoB7PKQaRMFv JZ6STkOkQBDxJGb3TFHpSNZrUEZhci9CBLGoMUUhQkMiJVKsWUDkSBBoQCybVHVlSBYvJeK1LODmPNOu GI4ZLgPkUYKtQMO2LXWpDZPjUCYqsk2TKXHoHZFpNj QxWYZbAQFfJEXxGTpcSYEpCXE3UHBrINChUDDhZZ9QPeJgFUDlECl5WPybYAKdUMQmpn8IPYXtDLUwUm Z9ARBmVWLpEVNvFCxzXJUjCBQaGeB7FRRzIJBcKP1NJdFzHKZxKdHxTgwbKRUpWJHbuf4KORHdWQYvFv X4HLOzEVPcVIUkKMlnHZLcMIQ9StlvSMKpDKZjMX6Q EaXmRQNrYrq3ZSMxSYVpEMPslh8TXRCzJRSfQuHoQvYqENVxIYZtDKjlIKNlCZQdFHPwANLsOPCoZM5I TkRnRCNcUgY4OGIgXNPbVSZnbu8EPICiUXElDOvuUOYnNKXtBDYjYDwbHZKbRWU4FurdECWiHBSkAW5X DuIzVBBdGis8TVcsLUMqIULscr3FQSAmEJV2NIj5GP MfNHKyRSQwLHtwQDEnHVLeZVTxBNRaYYFzUS8CHeHfFMIjHBAdVcHmVLUiXONlvt1VNCVgGQM6XvWzQF YdOQOtGYSgBNnoBDNkXEApEUOrRUNwGKJeZP7LIoGhIXInEDBmNhMpVARaAWKdlb3CNJHhJFT3BeY0Ys SoTBEpXPBuVKqqZULtEZTnUuZrSRPnKHEfCA8XSjUm RIPvDBXkEtYiEGZxHATuwk6FERAuAII4LIO5MzZyNHZrZAWbXYwtTRHvVFG4QpTzBGUkEFUaRM9SAiCb GVIrIPE8UMCrSHGwDBRvxf5WCJAwILX2MnB1UlIyNDZqGODcDBhxGSXjFVF0FYbtSJXbAZCnZG5VHnJz BLAtYJbaNqNeXAYqSRGbab4WXXGuYLB1ZyY6MiQoEN NgTYUnBAexAYWjSLF2ZhRuJJXqHUZzVB7CXqTiYNNdKRabPTKlBHLyXMRlxe7DYRUgADY7UEL6CbXqEG UnMFAzVVywFLJcIJC1SDG4ZSZaQORbRD2HKsEeTCQoYUg1CuxfEZUyQCFujs5DZBPgDXE3YNy5YsYiAI FoPUCsUHqdAQFjBBIxIRW0OQVeGGNeBG2CMnVxCMMe ZvZnUJdsXQPeWKUfnx8GpDYbpKnpoy7AMUzPSa6GsFqzTEFwJDjyYv0acHZ3KvBkTCFZHi0OmaRgWTHn JOIWPNhyBBXbSQKeKWX9MCAuOrK6TEQhWIXgDCQ4TSjuI2G4CjakOCA1JdC8E2L5AeybHkW5WytjIEWz KAD7AlnzHJJrQnT7VMA1Mck+PG7sWVc+Vj0Em7DdxgD7ucSzDVj5OOK0Ho9TRLAWL3PBBo== ID Date Data Source [id number] 11/17/2020 11:27:03 PM EDT [facility] Name Value Range Interpretation Code Description Data Lou rce(s) Supporting Document(s) Discharge Summary [facility] HWPIPh4kZdEWYlYo78/GQBwvTVPzu5ZtJXysGEn6ZErqIFKlO0HzBXA6sY5yCXO9DXjSLbAnAlMeGwUm lbm [file] W4TkA4KOnpTa7zHUSTZd7+SQszcWHkvHwkRFKXVbT7VOD0QLjzKXXPTq2W ID Date Data Source [id number] 11/17/2020 03:42:22 PM EDT [facility] Name Value Range Interpretation Code Description Data Lou rce(s) Supporting Document(s) Progress Note [facility] PGZLVc7jKfNCFbTh78/MIMnaGWDef7DjHXluANq9PPjfHWUyO4SoQRN7gF0pLTR6LJiPXqJoJfWdHfIw lbm [file] YNCg== ID Date Data Source [id number] 11/17/2020 03:24:34 PM EDT [facility] Name Value Range Interpretation Code Description Data Lou rce(s) Supporting Document(s) Consultation [facility] SYFHRc5pNhPUKhWg17/TJXatWHZai1JuBNpzURf7AJqjMQGgB6XlAHD7vJ5lRIF3UEvGYkTjPuGaThBo lbm [file] HeTMU3M2IgODPeZHcaKIF9ZCgiSQYjGRWnTbUyQM 0AMr9WOwS3YTG8uTUbJq2JRkT2MUBNZsPtPT8EQTy= ID Date Data Source [id number] 11/17/2020 02:27:40 PM EDT [facility] Name Value Range Interpretation Code Description Data Lou rce(s) Supporting Document(s) Leukocytes [#/volume] in Blood by Automated count 8.2 10*3/uL 4-10 [facility] Erythrocytes [#/volume] in Blood by Automated count 3.30 10*6/uL 4.6- 6.1 L [facility] Hemoglobin [Mass/volume] in Blood 8.8 g/dL 13.5-18 L [facility] Hematocrit [Volume Fraction] of Blood by Automated count 26.5 % 4 1-53 L [facility] Erythrocyte mean corpuscular volume [Entitic volume] by Auto mated count 80.3 fL 80-96 [facility] Erythrocyte mean corpuscular hemoglobin [Entitic mass] by Automated count 26.6 pg 27-33 L [facility] Erythrocyte mean corpuscular hemoglobin concentration [Mass/volume] by Automated count 33.1 g/dL 32.0-36.0 [facility] E[facility]th[facility] distribution width [Ratio] by Automated count 19.2 % 11.5-14.5 H [facility] Platelets [#/volume] in Blood by Automated count 203 10*3/uL 150-400 [facility] Confirmed ID Date Data Source [id number] 11/17/2020 09:20:32 AM EDT [facility] US ABDOMEN LIMITED [id number] RESULTInte rpreted by:ALEX CarringtonROCEDURE INFORMATION: Exam: US [...] which has nodular contour. Series 1, image [id number] indicates normal portal hepatopetal flow of the [...] rce(s) Supporting Document(s) ID Date Data Source [id number] 11/17/2020 08:51:22 AM [facility] Name Value Range Interpretation Code Description [facility] JXDFZg2dXmNSEmLn34/WYKbxYNUej7RiEEsnAYm7ICfeEPGwP1FrSUT9sN4ySHE9ANfGVgBzCnXhXhWn m [file] [id number]LNTV4UDBd== ID Date Data Source [id number] 11/17/2020 08:31:25 AM EDT [facility] Name Value Range Interpretation Code Description Data Lou rce(s) Supporting Document(s) Glucose [Mass/volume] in Capillary blood by Glucometer 133 mg/dL 70- 140 [facility] ID Date Data Source [id number] 11/17/2020 07:48:05 AM EDT [facility] Name Value Range Interpretation Code Description Data Lou rce(s) Supporting Document(s) History and Physical [facility] JZBLMw6hOwYMMgMp16/ZEJuyGEGlx2JvVJibCDa6ZRumLDWyQ8JkEKM4oI4mIZT8BBmKJoTpJnCtRaNu lbm [file] customer engagement representative+ZGDghGJmDCXiDtgVpvLs6oK2ugZNctU15GL7jV0DelCFD3+sA1eh7BeXC+39oi9e1mNvJ0sDFUhW [file] [id number] ID Date Data Source [id number] 11/17/2020 03:04:17 AM EDT [facility] Name Value Range Interpretation Code Description Data Lou rce(s) Supporting Document(s) Leukocytes [#/volume] in Blood by Automated count 7.4 10*3/uL 4-10 [facility] Erythrocytes [#/volume] in Blood by Automated count 3.00 10*6/uL 4.6- 6.1 L [facility] Hemoglobin [Mass/volume] in Blood 7.8 g/dL 13.5-18 L [facility] Hematocrit [Volume Fraction] of Blood by Automated count 24.0 % 4 1-53 L [facility] Erythrocyte mean corpuscular volume [Entitic volume] by Auto mated count 80.2 fL 80-96 [facility] Erythrocyte mean corpuscular hemoglobin [Entitic mass] by Automated count 26.1 pg 27-33 L [facility] Erythrocyte mean corpuscular hemoglobin concentration [Mass/volume] by Automated count 32.6 g/dL 32.0-36.0 [facility] E[facility]throcyte distribution width [Ratio] by Automated count 19.2 % 11.5-14.5 H [facility] Platelets [#/volume] in Blood by Automated count 165 10*3/uL 150-400 [facility] Differential cell count method - Blood [facility] Neutrophils/100 leukocytes in Blood by Automated count 62 % [facility] Lymphocytes/100 leukocytes in Blood by Automated count 13 % [facility] Monocytes/100 leukocytes in Blood by Automated count 21 % [facility] Eosinophils/100 leukocytes in Blood by Automated count 3 % [facility] Basophils/100 leukocytes in Blood by Automated count 1 % [facility] Neutrophils [#/volume] in Blood by Automated count 4.58 10*3/uL 1.8-7 .0 [facility] Lymphocytes [#/volume] in Blood by Automated count 0.99 10*3/uL 1.2-4 .0 L [facility] Monocytes [#/volume] in Blood by Automated count 1.58 10*3/uL 0-0.8 H [facility] Eosinophils [#/volume] in Blood by Automated count 0.22 10*3/uL 0-0.5 [facility] Basophils [#/volume] in Blood by Automated count 0.04 10*3/uL 0-0.2 [facility] Nucleated erythrocytes/100 leukocytes [Ratio] in Blood by Automated count 0 /100{WBCs} 0-0 [facility] ID Date Data Source [id number] 11/17/2020 03:21:33 AM [facility] Name Value Range Interpretation Code Description Data Lou rce(s) Supporting Document(s) Bicarbonate [Moles/volume] in Serum 27 mmol/L 22-29 [facility] Chloride [Moles/volume] in Serum or Plasma 97 mmol/L 98-107 L [facility] Creatinine [Mass/volume] in Serum or Plasma 0.44 mg/dL 0.70-1.20 L [facility] Glucose [Mass/volume] in Serum or Plasma 117 mg/dL 70-140 [facility] Potassium [Moles/volume] in Serum or Plasma 3.2 mmol/L 3.4-5.1 L [facility] Sodium [Moles/volume] in Serum or Plasma 132 mmol/L 136-145 L [facility] Urea nitrogen [Mass/volume] in Serum or Plasma 6 mg/dL 6-20 [facility] Anion gap 3 in Serum or Plasma 8 mmol/L 8-15 [facility] Osmolality of Serum or Plasma by calculation 273 mosm/kg 275-300 L [facility] Creatinine/Urea nitrogen [Mass Ratio] in Serum or Plasma 14 [facility] Calcium [Mass/volume] in Serum or Plasma 7.7 mg/dL 8.6-10.0 L [facility] Glomerular filtration rate/1.73 sq M pre dicted among non-blacks [Volume Rate/Area] in Serum or Plasma by Creatinine-based formula (MDRD) >6 0 [facility] Glomerular filtration rate/1.73 sq M pre dicted among blacks [Volume Rate/Area] in Serum or Plasma by Creatinine-based formula (MDRD) >60 [facility] ID Date Data Source [id number] 11/17/2020 02:46:49 AM [facility] Value Range Interpretation Code Description Data Lou rce(s) Supporting Document(s) Glucose [Mass/volume] in Capillary blood by Glucometer 132 mg/dL 70- 140 [facility] ID Date Data Source [id number] 11/16/2020 11:03:46 PM [facility] Value Range Interpretation Code Description Data Lou rce(s) Supporting Document(s) Glucose [Mass/volume] in Capillary blood by Glucometer 152 mg/dL 70- 140 H [facility] ID Date Data Source [id number] 11/16/2020 07:34:41 PM [facility] Value Range Interpretation Code Description Data Lou rce(s) Supporting Document(s) Glucose [Mass/volume] in Capillary blood by Glucometer 135 mg/dL 70- 140 [facility] ID Date Data Source [id number] 11/16/2020 05:29:34 PM [facility] Value Range Interpretation Code Description Data Lou rce(s) Supporting Document(s) Glucose [Mass/volume] in Capillary blood by Glucometer 90 mg/dL 70- 140 [facility] ID Date Data Source [id number] 11/16/2020 04:15:48 PM [facility] Value Range Interpretation Code Description Data Lou rce(s) Supporting Document(s) Glucose [Mass/volume] in Capillary blood by Glucometer 218 mg/dL 70- 140 [facility] ID Date Data Source [id number] 11/16/2020 03:39:03 PM [facility] Value Range Interpretation Code Description Data Lou rce(s) Supporting Document(s) Leukocytes [#/volume] in Blood by Automated count 8.0 10*3/uL 4-10 [facility] Erythrocytes [#/volume] in Blood by Automated count 3.42 10*6/uL 4.6- 6.1 [facility] Hemoglobin [Mass/volume] in Blood 8.9 g/dL 13.5-18 [facility] Hematocrit [Volume Fraction] of Blood by Automated count 27.6 % 4 1-53 [facility] Erythrocyte mean corpuscular volume [Entitic volume] by Auto mated count 80.8 fL 80-96 [facility] Erythrocyte mean corpuscular hemoglobin [Entitic mass] by Automated count 26.1 pg 27-33 [facility] Erythrocyte mean corpuscular hemoglobin concentration [Mass/volume] by Automated count 32.3 g/dL 32.0-36.0 [facility] distribution width [Ratio] by Automated count 19.1 % 11.5-14.5 H [facility] Platelets [#/volume] in Blood by Automated count 159 10*3/uL 150-400 [facility] Differential cell count method - Blood [facility] Neutrophils/100 leukocytes in Blood by Automated count 69 % [facility] Lymphocytes/100 leukocytes in Blood by Automated count 10 % [facility] Monocytes/100 leukocytes in Blood by Automated count 16 % [facility] Eosinophils/100 leukocytes in Blood by Automated count 4 % [facility] Basophils/100 leukocytes in Blood by Automated count 1 % [facility] Neutrophils [#/volume] in Blood by Automated count 5.58 10*3/uL 1.8-7 .0 [facility] Lymphocytes [#/volume] in Blood by Automated count 0.79 10*3/uL 1.2-4 .0 L [facility] Monocytes [#/volume] in Blood by Automated count 1.32 10*3/uL 0-0.8 H [facility] Eosinophils [#/volume] in Blood by Automated count 0.31 10*3/uL 0-0.5 [facility] Basophils [#/volume] in Blood by Automated count 0.04 10*3/uL 0-0.2 [facility] Nucleated erythrocytes/100 leukocytes [Ratio] in Blood by Automated count 0 /100{WBCs} 0-0 [facility] ID Date Data Source [id number] 11/16/2020 11:51:13 AM EDT [facility] Value Range Interpretation Code Description Data Lou rce(s) Supporting Document(s) Glucose [Mass/volume] in Capillary blood by Glucometer 106 mg/dL 70- 140 [facility] ID Date Data Source [id number] 11/16/2020 07:59:02 AM EDT [facility] Value Range Interpretation Code Description Data Lou rce(s) Supporting Document(s) Glucose [Mass/volume] in Capillary blood by Glucometer 119 mg/dL 70- 140 [facility] ID Date Data Source [id number] 11/16/2020 05:48:16 AM EDT [facility] Value Range Interpretation Code Description Data Lou rce(s) Supporting Document(s) Glucose [Mass/volume] in Capillary blood by Glucometer 101 mg/dL 70- 140 [facility] ID Date Data Source [id number] 11/19/2020 09:27:00 AM EDT [facility] Surgical Pathology ReportName: JEFRY MORINMRN: [id number] Number: [id number] Date: 11/16/2020 00:00Received Date: 11/16/2020 11:32Physician(s): RON LINARES MD OZDEN, NURI,MDCopy To:DONAL FUNEZ MDSpecimen(s) ReceivedA: Antrum biopsyClinical HistoryMelena.DiagnosisSTOMACH, ANTRUM, BIOPSY: MILD CHRONIC GASTRITIS. NO H. PYLORI IDENTIFIED. Electronically Signed By Kelle Ordaz MD, Attending Pathologist :27:42Professional services performed at [facility] Pathology Laboratory [facility], [address] [place] [address]. Unless 'gross-only'is specified, the final diagnosis is [...] and their pe rformance characteristics determined by [facility] Pathology department. They have not been cleared or approved by the USFood and Drug Administration. The FDA has determined that such clearanceor approval is not necessary. Name Value Range Interpretation Code Description Data Lou rce(s) Supporting Document(s) ID Date Data Source [id number] 11/16/2020 12:27:10 AM EDT [facility] Name Value Range Interpretation Code Description Data Lou rce(s) Supporting Document(s) Bicarbonate [Moles/volume] in Serum 21 mmol/L 22-29 L [facility] Chloride [Moles/volume] in Serum or Plasma 99 mmol/L 98-107 [facility] Creatinine [Mass/volume] in Serum or Plasma 0.54 mg/dL 0.70-1.20 L [facility] Glucose [Mass/volume] in Serum or Plasma 106 mg/dL 70-140 [facility] Potassium [Moles/volume] in Serum or Plasma 4.0 mmol/L 3.4-5.1 [facility] Sodium [Moles/volume] in Serum or Plasma 130 mmol/L 136-145 L [facility] Urea nitrogen [Mass/volume] in Serum or Plasma 8 mg/dL 6-20 [facility] Anion gap 3 in Serum or Plasma 11 mmol/L 8-15 [facility] Osmolality of Serum or Plasma by calculation 269 mosm/kg 275-300 L [facility] Creatinine/Urea nitrogen [Mass Ratio] in Serum or Plasma 16 [facility] Calcium [Mass/volume] in Serum or Plasma 8.2 mg/dL 8.6-10.0 L [facility] Glomerular filtration rate/1.73 sq M pre dicted among non-blacks [Volume Rate/Area] in Serum or Plasma by Creatinine-based formula (MDRD) >6 0 [facility] Glomerular filtration rate/1.73 sq M pre dicted among blacks [Volume Rate/Area] in Serum or Plasma by Creatinine-based formula (MDRD) >60 [facility] ID Date Data Source [id number] 11/16/2020 12:16:14 AM EDT [facility] Name Value Range Interpretation Code Description Data Lou rce(s) Supporting Document(s) Leukocytes [#/volume] in Blood by Automated count 10.6 10*3/uL 4-10 H [facility] Erythrocytes [#/volume] in Blood by Automated count 3.43 10*6/uL 4.6- 6.1 L [facility] Hemoglobin [Mass/volume] in Blood 8.9 g/dL 13.5-18 L [facility] Hematocrit [Volume Fraction] of Blood by Automated count 27.7 % 4 1-53 L [facility] Erythrocyte mean corpuscular volume [Entitic volume] by Auto mated count 80.9 fL 80-96 [facility] Erythrocyte mean corpuscular hemoglobin [Entitic mass] by Automated count 25.9 pg 27-33 L [facility] Erythrocyte mean corpuscular hemoglobin concentration [Mass/volume] by Automated count 32.0 g/[facility].0-[facility] width [Ratio] by Automated count 18.7 % 11.5-14.5 H [facility] Platelets [#/volume] in Blood by Automated count 136 10*3/uL 150-400 L [facility] Differential cell count method - Blood [facility] Neutrophils/100 leukocytes in Blood by Automated count 72 % [facility] Lymphocytes/100 leukocytes in Blood by Automated count 7 % [facility] Monocytes/100 leukocytes in Blood by Automated count 17 % [facility] Eosinophils/100 leukocytes in Blood by Automated count 3 % [facility] Basophils/100 leukocytes in Blood by Automated count 1 % [facility] Neutrophils [#/volume] in Blood by Automated count 7.64 10*3/uL 1.8-7 .0 H [facility] Lymphocytes [#/volume] in Blood by Automated count 0.71 10*3/uL 1.2-4 .0 L [facility] Monocytes [#/volume] in Blood by Automated count 1.83 10*3/uL 0-0.8 H [facility] Eosinophils [#/volume] in Blood by Automated count 0.34 10*3/uL 0-0.5 [facility] Basophils [#/volume] in Blood by Automated count 0.06 10*3/uL 0-0.2 [facility] Nucleated erythrocytes/100 leukocytes [Ratio] in Blood by Automated count 0 /100{WBCs} 0-0 [facility] ID Date Data Source [id number] 11/15/2020 11:51:31 PM EDT [facility] Name Value Range Interpretation Code Description Data Lou rce(s) Supporting Document(s) Glucose [Mass/volume] in Capillary blood by Glucometer 108 mg/dL 70- 140 [facility] ID Date Data Source [id number] 11/15/2020 09:23:23 PM EDT [facility] Name Value Range Interpretation Code Description Data Lou rce(s) Supporting Document(s) [facility] AJVBTg8eOnJQHgZn81/NRMvrPHCus1GfZMqfQXs8VBmeSRWkK5WnKVU4hV1kPMZ4EEfURxNrYzMoIvN3 [facility] VkIeoCDyOnPIKwJiuQLeDdKUgcPlryuFRbEW3SsRM7XVThK82iXEUmOSYeV6VcZVK7NCB+Eu2CPNKrwJ LtJZ0LFhwD6K2PpvvXOG5PrE/MGNQAIaik4jKiwCZ8DJxe1TOQXNYlAXQoHmYJqygmHz4+icbNNNh3iq OKK8KQ46wbMh/HAMmDX9CU/ocrIes2w1NO8i/61zB2 VO9O/fUvalPNddbVNr+rNyTTD6GEkDwPz3Tu2vf7dUCRk5yj2L2g7ePUauhVBZWGW7H70A53w8St/6ts 908QAfYly4ctd2zXfsRK91LryHh0JC7qSmZrxsHAh4SUtHtKBlTEiKAIlwpKwMOKcE7kz7Ix0rBNpyTa A/ycg2W/PoeOg3MrdQJYaxX0MMepBbJu0bgNifsqDy FhdK8Uar7itkq2YFQ2z+3AXXdum+oLZDyomuP6Rulj+3qEC5ouM0Hx4Xxqq3jIqvtBWS+nZW3RXQ5y2b Zs/7dgQkfQxTy6YHji6VN5c56WFad7fiVZam3tU1toFq1vc+VzonnrNboT9urnU8u80Fa7VBT4rXN8v/ 5ItyGjMZDYGeJpm3dX7p2cYuMqGD26RfQ2jHZGrKU6 gLegr0WiGCRoIdERhyOVqO/htHCo1ocvvcwmnIEBg7zzRaDVL+PezRgoqbbQ0zASrnSEQyKi702DqRmn Zunk++DDJ6Mc20eE5FB7M4hcnNAgoqtk3/HNye8iBMI85gTB1t88TrOS7//MbUMU5/rfprbsMgcdJwff 3eTHIILVM2PmnOrBRQvTSGW/SRvm71YRPSIOq8QBAn [file] AgICAgICAgICAgICAgICAgICAgICAgICAgICAgICAg ICAgICAgICAgICAgICAgICAgICAgICAgICAgICAgICAgICAgICAgICAgDQogICAgICAgICAgICAgICAg ICAgICAgICAgICAgICAgICAgICAgICAgICAgICAgICAgICAgICAgICAgICAgICAgICAgICAgICAgICAg ICAgICAgICAgICAgICAgICAgICAgICAgDQogICAgIC AgICAgICAgICAgICAgICAgICAgICAgICAgICAgICAgICAgICAgICAgICAgICAgICAgICAgICAgICAgIC AgICAgICAgICAgICAgICAgICAgICAgICAgICAgICAgICAgDQogICAgICAgICAgICAgICAgICAgICAgIC AgICAgICAgICAgICAgICAgICAgICAgICAgICAgICAg ICAgICAgICAgICAgICAgICAgICAgICAgICAgICAgICAgICAgICAgICAgICAgDQogICAgICAgICAgICAg ICAgICAgICAgICAgICAgICAgICAgICAgICAgICAgICAgICAgICAgICAgICAgICAgICAgICAgICAgICAg ICAgICAgICAgICAgICAgICAgICAgICAgICAgDQogIC AgICAgICAgICAgICAgICAgICAgICAgICAgICAgICAgICAgICAgICAgICAgICAgICAgICAgICAgICAgIC AgICAgICAgICAgICAgICAgICAgICAgICAgICAgICAgICAgICAgDQogICAgICAgICAgICAgICAgICAgIC AgICAgICAgICAgICAgICAgICAgICAgICAgICAgICAg ICAgICAgICAgICAgICAgICAgICAgICAgICAgICAgICAgICAgICAgICAgICAgICAgDQogICAgICAgICAg ICAgICAgICAgICAgICAgICAgICAgICAgICAgICAgICAgICAgICAgICAgICAgICAgICAgICAgICAgICAg ICAgICAgICAgICAgICAgICAgICAgICAgICAgICAgDQ ogICAgICAgICAgICAgICAgICAgICAgICAgICAgICAgICAgICAgICAgICAgICAgICAgICAgICAgICAgIC AgICAgICAgICAgICAgICAgICAgICAgICAgICAgICAgICAgICAgICAgDQogICAgICAgICAgICAgICAgIC AgICAgICAgICAgICAgICAgICAgICAgICAgICAgICAg ANHpJPIdCQYeRWCfPXKmGUScVQSmYWAwNCVfONSwTRAgFKFjFYMqERQyUTAmFXVjVWYuEBi2O8xkGLVv LFEeAM5eNQf2Ev2+STsNKzUrRXC4lwFwgY9XKR1jf0IhZWjfWZSeh7TwOFt4MJ9PLWOiUUnlMK0XXFvk rb2PQNTyMWUdbCGWa6vzHnAhFFY5MNEkDclgPS5TKX ZlR5vspoOfAETwBYCMJSgyTBVTTPldWFYDXZFiRPHaFnNpQpIzYTJfLLAjHOBHET1NTjMuT7GvkS55TX YNCj4+LZemlnRzJxgFSyS8XYXht6AtXNb0OI4QZAWwQmjmr1KjTxEeSUXMTNysVX5BQGQ0NFK4EZNzQi 5NWNYxZ835fxFyCM4HOa7FUkMmVO7kwz8ZMbEsTVXi TwzCUde8VRutIA7OeFPsFEyUj98yzLo7mlKzeUMXHFF8uTITQHQexVLwjPbkTEYVHjDhgUJ3RbX6HqIt OzRsAMC2RtstCP9kWLycBI6YQSG4WYbzWYPhUBRlZ4xZOzPoMVLiBKPsfRxjSA0BWxDfQ6MuttJwpQNw NSAwIFINCj4+QAcnghYmElxDZnR0FHGcx2SlJIv8OF 2EVQErKCjbEC8JJCKasF0zJVxhXB8CCmXuGhOeNPBGBuMpM33lbHVwZFp9Z7AwXwLjIPJsMwniIMSpHQ wvTmFtZXMgWyBdDQogID4+ID4+IPmyYK4GIQxlnqTiKYRwKk6NALAvZVRhIL6gOHWoQCRxX9W4oAbpZF KUZbMrV0reevwrQF8fGJMzR529nBmduaFnZBY1BWYh Wf3PUMGuJFB0MKMrdVXgFwLlJPZHZDbuPK4UqZGaWMG7oE7rJAcmEMZxURCwV4bHHoOqfVqmHU16aTgh bnVsbCBdDQo+Kf2BKV3ql9ZwIWb8jkBoXSgfGPM6GNujTKOtONYgPCZkHQK2UJU8EVFPUzOtXVGjUDGq EKulPLXxGCWrgu0CLMCdNYLlFELrUOYxAGVlXWWjSQ poFJFtRUV1FVWkQUMzWOIvBJ5ATjMdFZTyWNRzRObmADZmXOPohc5BSXSvVBElCqt9PKAjCTAyYHJpOF tzHEZjIUQ1UZw4OMJuMWQiMH1NMvWcFGEsMCS9RaYlLJFmXMQmkj4EBRTnGLGvUjJ1MCHpMNNnTTImTM dcYDPaEUF2CQL4PUZmSBCxNA3UPnDyYORaRCGbCKjz HCJfFPUfse6VQRStIMCmYgGkTvEwFYKgXURsLIeoEVQsVCQuWvD8MYElGQTaRC7KXgUySTCpJZM4ZKQi JYVpWNNpbs4TREJzQMBpWMg2NGAmDXBeIFZpIFdcXTPmCCO8NON5QQHbDNZzUT7ZTqGiZTIiTTQ8PCEu YYLtVSDuzf8UBCItEBPcEsusNnQoGCMnDZWmKPacTK SaRMI6CUBrVEVgXGHaTH1VDkPhIUMdGObuGNTcTLQzXBAayk2JZLKtSYPxAVJ7KeYxQNFjJIPpYRqcTB DxAVR6YhX9ZQHhAFSuXZ1FOqVbPZWgHDe4JvReWJTfCQMkye3BIKPzLEYmHIL4RxYmOYMxJZYkZZhbNX CeKAJkPUc2VAUjYWJwCB5MTtXfKLIrUeQ9GpZlFENy JZQtdh2ZSDRzZWQnWhP2EaYpWOHkVJDqURkkSFAkWKNaSXt2GTBtZQLuSH8EGiJgJOHhRhC1TNArAPCq CSKcbz5FSHTtDLYzZkicJnOmIHQmBFSkTJfcCXIkMIRlKUV9XGXbYYHfFC6IGjXpPRErVfWvKWQaDXSj XTRxki5LWLKbPEOwLYUbTHCkDRVmTCOnXSuiGQSmVF Y9Vas3LSMrXPCdVR7JQpFcCUFbRpB0FUVqEZBmVXKoyw4DWRIbPUUeHrW9DzYhZBMbJGOuEXfdPYRsIH Z1GuG7TTYiIZYoUP2ICiCzWVYkHiB2FZkcMIIePAMspx5UjIOhtMombv1IVLlUEj8OqCkyZCC9RJwsDe 5dqSIpCbIdYCVVAq0KtvGlKHAgUZSTZDrtWHFbZJAf WDF1LCicRpT4EZGxOUZfFpTcGVT3HVV7NPe7Wdu0YeJ0BcBdHXb5Q9M5Beh7BtJsAMUpWJC9YwxqPeVk OTUzOTQ+AS9aBWf+Zq6Va2TopbF8osXaINfbUcc4Kt3YKYACJ9BLRs== ID Date Data Source [id number] 11/15/2020 07:26:24 PM EDT [facility] Name Value Range Interpretation Code Description Data Lou rce(s) Supporting Document(s) Glucose [Mass/volume] in Capillary blood by Glucometer 109 mg/dL 70- 140 [facility] ID Date Data Source [id number] 11/15/2020 04:11:20 PM [facility] Name Value Range Interpretation Code Description Data Lou rce(s) Supporting Document(s) Glucose [Mass/volume] in Capillary blood by Glucometer 111 mg/dL 70- 140 [facility] ID Date Data Source [id number] 11/15/2020 04:23:03 PM [facility] Name Value Range Interpretation Code Description Data Lou rce(s) Supporting Document(s) Albumin [Mass/volume] in Serum or Plasma by Bromocresol green (BCG) dye binding method 3.3 g/dL 3.5-5.2 L [facility] al Bilirubin.total [Mass/volume] in Serum or Plasma 1.9 mg/dL <1.2 H [facility] Bilirubin.direct [Mass/volume] in Serum or Plasma 1.1 mg/dL <0.3 H [facility] Alkaline phosphatase [Enzymatic activity/volume] in Serum or Plasma 135 U/L 40-129 H [facility] Aspartate aminotransferase [Enzymatic activity/volume] in Serum or Plasma 267 U/L <40 H [facility] Alanine aminotransferase [Enzymatic activity/volume] in Seru m or Plasma 136 U/L <41 H [facility] Protein [Mass/volume] in Serum or Plasma 5.9 g/dL 6.4-8.3 L [facility] ID Date Data Source [id number] 11/15/2020 05:07:41 PM [facility] Name Value Range Interpretation Code Description Data Lou rce(s) Supporting Document(s) Leukocytes [#/volume] in Blood by Automated count 9.0 10*3/uL 4-10 [facility] Erythrocytes [#/volume] in Blood by Automated count 3.38 10*6/uL 4.6- 6.1 L [facility] Hemoglobin [Mass/volume] in Blood 9.0 g/dL 13.5-18 L [facility] Hematocrit [Volume Fraction] of Blood by Automated count 27.3 % 4 1-53 L [facility] Erythrocyte mean corpuscular volume [Entitic volume] by Auto mated count 80.8 fL 80-96 [facility] Erythrocyte mean corpuscular hemoglobin [Entitic mass] by Automated count 26.7 pg 27-33 L [facility] Erythrocyte mean corpuscular hemoglobin concentration [Mass/volume] by Automated count 33.0 g/dL 32.0-36.[facility] width [Ratio] by Automated count 18.6 % 11.5-14.5 [facility] Platelets [#/volume] in Blood by Automated count 124 10*3/uL 150-400 L [facility] Confirmed Differential cell count method - Blood [facility] Neutrophils/100 leukocytes in Blood by Automated count 76 % [facility] Lymphocytes/100 leukocytes in Blood by Automated count 6 % [facility] Monocytes/100 leukocytes in Blood by Automated count 14 % [facility] Eosinophils/100 leukocytes in Blood by Automated count 3 % [facility] Basophils/100 leukocytes in Blood by Automated count 1 % [facility] Neutrophils [#/volume] in Blood by Automated count 6.78 10*3/uL 1.8-7 .0 [facility] Lymphocytes [#/volume] in Blood by Automated count 0.56 10*3/uL 1.2-4 .0 [facility] Monocytes [#/volume] in Blood by Automated count 1.26 10*3/uL 0-0.8 H [facility] Eosinophils [#/volume] in Blood by Automated count 0.29 10*3/uL 0-0.5 [facility] Basophils [#/volume] in Blood by Automated count 0.06 10*3/uL 0-0.2 [facility] Nucleated erythrocytes/100 leukocytes [Ratio] in Blood by Automated count 0 /100{WBCs} 0-0 [facility] ID Date Data Source [id number] 11/15/2020 04:56:38 PM [facility] Name Value Range Interpretation Code Description Data Lou rce(s) Supporting Document(s) Hepatitis C virus Ab [Presence] in Serum or Plasma by Immuno assay Non Reactive [facility] No serological evidence of active infect ion. If recent exposure is suspected, test for HCV RNA. ID Date Data Source [id number] 11/15/2020 07:13:54 AM [facility] Name Value Range Interpretation Code Description Data Lou rce(s) Supporting Document(s) Bicarbonate [Moles/volume] in Serum 19 mmol/L 22-29 [facility] Chloride [Moles/volume] in Serum or Plasma 102 mmol/L 98-107 [facility] Creatinine [Mass/volume] in Serum or Plasma 0.69 mg/dL 0.70-1.20 L [facility] Glucose [Mass/volume] in Serum or Plasma 112 mg/dL 70-140 [facility] Potassium [Moles/volume] in Serum or Plasma 3.9 mmol/L 3.4-5.1 [facility] Sodium [Moles/volume] in Serum or Plasma 130 mmol/L 136-145 L [facility] Urea nitrogen [Mass/volume] in Serum or Plasma 13 mg/dL 6-20 [facility] Anion gap 3 in Serum or Plasma 9 mmol/L 8-15 [facility] Osmolality of Serum or Plasma by calculation 270 mosm/kg 275-300 L [facility] Creatinine/Urea nitrogen [Mass Ratio] in Serum or Plasma 19 [facility] Calcium [Mass/volume] in Serum or Plasma 8.2 mg/dL 8.6-10.0 [facility] Glomerular filtration rate/1.73 sq M pre dicted among non-blacks [Volume Rate/Area] in Serum or Plasma by Creatinine-based formula (MDRD) >6 0 [facility] Glomerular filtration rate/1.73 sq M pre dicted among blacks [Volume Rate/Area] in Serum or Plasma by Creatinine-based formula (MDRD) >60 [facility] ID Date Data Source [id number] 11/15/2020 07:47:52 AM EDT [facility] Name Value Range Interpretation Code Description Data Lou rce(s) Supporting Document(s) Leukocytes [#/volume] in Blood by Automated count 7.5 10*3/uL 4-10 [facility] Erythrocytes [#/volume] in Blood by Automated count 3.25 10*6/uL 4.6- 6.1 [facility] Hemoglobin [Mass/volume] in Blood 8.5 g/dL 13.5-18 [facility] Hematocrit [Volume Fraction] of Blood by Automated count 26.2 % 4 1-53 [facility] Erythrocyte mean corpuscular volume [Entitic volume] by Auto mated count 80.6 fL 80-96 [facility] Erythrocyte mean corpuscular hemoglobin [Entitic mass] by Automated count 26.2 pg 27-33 L [facility] Erythrocyte mean corpuscular hemoglobin concentration [Mass/volume] by Automated count 32.5 g/dL 32.0-36.0 [facility] al Erythrocyte distribution width [Ratio] by Automated count 18.5 % 11.5-14.5 H [facility] Platelets [#/volume] in Blood by Automated count 123 10*3/uL 150-400 L [facility] Confirmed Differential cell count method - Blood [facility] Neutrophils/100 leukocytes in Blood by Automated count 72 % [facility] Lymphocytes/100 leukocytes in Blood by Automated count 10 % [facility] Monocytes/100 leukocytes in Blood by Automated count 13 % [facility] Eosinophils/100 leukocytes in Blood by Automated count 4 % [facility] Basophils/100 leukocytes in Blood by Automated count 1 % [facility] Neutrophils [#/volume] in Blood by Automated count 5.47 10*3/uL 1.8-7 .0 [facility] Lymphocytes [#/volume] in Blood by Automated count 0.72 10*3/uL 1.2-4 .0 L [facility] Monocytes [#/volume] in Blood by Automated count 0.97 10*3/uL 0-0.8 H [facility] Eosinophils [#/volume] in Blood by Automated count 0.32 10*3/uL 0-0.5 [facility] Basophils [#/volume] in Blood by Automated count 0.05 10*3/uL 0-0.2 [facility] Nucleated erythrocytes/100 leukocytes [Ratio] in Blood by Automated count 0 /100{WBCs} 0-0 [facility] ID Date Data Source [id number] 11/15/2020 12:33:23 PM [facility] Name Value Range Interpretation Code Description Data Lou rce(s) Supporting Document(s) Phosphate [Mass/volume] in Serum or Plasma 2.4 mg/dL 2.5-4.5 [facility] ID Date Data Source [id number] 11/14/2020 11:16:15 PM [facility] Name Value Range Interpretation Code Description Data Lou rce(s) Supporting Document(s) [facility] GTZXTg2zYyIAHaGc43/FQAlgGDPen7NjXBdsMQy6SOvpRIYbG3GzLFO4xA8xVLZ7QBbMYpEhJyFhWdF1 [facility] GlYssYYeGwUWEfQnsPMqQnSSloUubjzTWrUF1UuZK2NKEpO77zTUJsEZFjD4CiBJO8FtG+Dm7RUZXwwI YqON8VTgyV0V2tHboLLc7+8y8MJF05vwyEnep4bCPDSpMxCGH9Om9yg2KM2Z9aVN+L8a32M3/DpirDL6 6aeyKEwKHxbf0ihe0pj8dBIDM+79lrcHCNefR97+zP AJXN9C96+9/UvJvnzrrN/2SdyAOuEztR+UD+p6e/bcVAhfe4fSR0zWgqEt+8AAQah63OQeOK75Slv+ri d6U9L2/FioWHwN9SQTO4Ope0NpP9xDVeiKTCeiqYq8yOi+OPf8SnfR2U6oUcrCMSlJHBrdNz9eCAvbdr swyEdPdW4wzXHONfoPFrwWHDYU4Atmno7GyNxyU5n7 E+zL8m6SD+is02yeEin6WxLDhxjoAUrf3nRjaheN9W2GWLVd2YTuaHpPXbfL4cyATVd2V+ieEi0Zq+zN X95cZtrh2jaLt9LziP2kbrKRtln2WH+2dyhej3wH3zZ+xU8I67L1qGcwt08jvBtXHzyzsH52R55AnTql XtChnPd6IWTToXcLOuv+rzXpHHAmlf215j6GGtqzhk yzJbnPfZTdpbsjhUGKulOs/+tWmT4hS+GIa4vMYyVxtBD/ATXU1oy+/bgn3bCMVZTZx7ZTuHK9pWvdpJ V8hbFkZEuowTRecdlYJYpCj1vDHnGOwfcMAm8GMF0bfjqy0xr3XpP3dj6UJaHz5UjOhwrZN/HWrLLkrQ cMwqx2tzLHr2PxiG2rQsGPClH66/DiW7s8WAEBaDv9 LTEbwsBPNCbf7kA3V60Rk8JtHrfJk8JkdBymsjkiTLnOg7ofXP7Vl7H5DCAZZuJ6YIux1zwtBmGw+Mars [file] RkMcf0JibvWHO4ILYbGjTwQTSdYmOcVY4pQMYVYi6+QDbgcTQgbEjfXJOXJeX2YVY2NCdfLINCRa4J ID Date Data Source [id number] 11/15/2020 12:29:07 AM [facility] Name Value Range Interpretation Code Description Data Lou rce(s) Supporting Document(s) Leukocytes [#/volume] in Blood by Automated count 7.5 10*3/uL 4-10 [facility] Erythrocytes [#/volume] in Blood by Automated count 3.11 10*6/uL 4.6- 6.1 L [facility] Hemoglobin [Mass/volume] in Blood 8.0 g/dL 13.5-18 L [facility] Hematocrit [Volume Fraction] of Blood by Automated count 24.9 % 4 1-53 L [facility] Erythrocyte mean corpuscular volume [Entitic volume] by Auto mated count 80.0 fL 80-96 [facility] Erythrocyte mean corpuscular hemoglobin [Entitic mass] by Automated count 25.8 pg 27-33 L [facility] Erythrocyte mean corpuscular hemoglobin concentration [Mass/volume] by Automated count 32.3 g/dL 32.0-36.[facility] width [Ratio] by Automated count 18.7 % 11.5-14.5 H [facility] Platelets [#/volume] in Blood by Automated count 120 10*3/uL 150-400 L [facility] Confirmed Differential cell count method - Blood [facility] Neutrophils/100 leukocytes in Blood by Automated count 71 % [facility] Lymphocytes/100 leukocytes in Blood by Automated count 11 % [facility] Monocytes/100 leukocytes in Blood by Automated count 13 % [facility] Eosinophils/100 leukocytes in Blood by Automated count 4 % [facility] Basophils/100 leukocytes in Blood by Automated count 1 % [facility] Neutrophils [#/volume] in Blood by Automated count 5.34 10*3/uL 1.8-7 .0 [facility] Lymphocytes [#/volume] in Blood by Automated count 0.83 10*3/uL 1.2-4 .0 [facility] Monocytes [#/volume] in Blood by Automated count 0.96 10*3/uL 0-0.8 H [facility] Eosinophils [#/volume] in Blood by Automated count 0.32 10*3/uL 0-0.5 [facility] Basophils [#/volume] in Blood by Automated count 0.06 10*3/uL 0-0.2 [facility] Nucleated erythrocytes/100 leukocytes [Ratio] in Blood by Automated count 0 /100{WBCs} 0-0 [facility] ID Date Data Source [id number] 11/14/2020 03:50:27 PM EDT [facility] Name Value Range Interpretation Code Description Data Lou rce(s) Supporting Document(s) History and Physical [facility] JBUIYu5hBjIMHeHp58/BSXrhMXLwo3CqRQkqNVg4IIvnHZDgT8EcGFE8mB2eODX9QKgENgQpTrLsDdR1 lbm [file] AgICAgICAgICAgICAgICAgICAgICAgICAgICAgICAgICAgICAgICAgICAgICAgICAgICAgICAgICAgIC AgICAgICAgICAgICAgICAgICAgICAgICAgICAgICAgICAgICAgICANCiAgICAgICAgICAgICAgICAgIC AgICAgICAgICAgICAgICAgICAgICAgICAgICAgICAg ICAgICAgICAgICAgICAgICAgICAgICAgICAgICAgICAgICAgICAgICAgICAgICAgICANCiAgICAgICAg ICAgICAgICAgICAgICAgICAgICAgICAgICAgICAgICAgICAgICAgICAgICAgICAgICAgICAgICAgICAg ICAgICAgICAgICAgICAgICAgICAgICAgICAgICAgIC ANCiAgICAgICAgICAgICAgICAgICAgICAgICAgICAgICAgICAgICAgICAgICAgICAgICAgICAgICAgIC AgICAgICAgICAgICAgICAgICAgICAgICAgICAgICAgICAgICAgICAgICANCiAgICAgICAgICAgICAgIC AgICAgICAgICAgICAgICAgICAgICAgICAgICAgICAg ICAgICAgICAgICAgICAgICAgICAgICAgICAgICAgICAgICAgICAgICAgICAgICAgICAgICANCiAgICAg ICAgICAgICAgICAgICAgICAgICAgICAgICAgICAgICAgICAgICAgICAgICAgICAgICAgICAgICAgICAg ICAgICAgICAgICAgICAgICAgICAgICAgICAgICAgIC AgICANCiAgICAgICAgICAgICAgICAgICAgICAgICAgICAgICAgICAgICAgICAgICAgICAgICAgICAgIC AgICAgICAgICAgICAgICAgICAgICAgICAgICAgICAgICAgICAgICAgICAgICANCiAgICAgICAgICAgIC AgICAgICAgICAgICAgICAgICAgICAgICAgICAgICAg ICAgICAgICAgICAgICAgICAgICAgICAgICAgICAgICAgICAgICAgICAgICAgICAgICAgICAgICANCiAg ICAgICAgICAgICAgICAgICAgICAgICAgICAgICAgICAgICAgICAgICAgICAgICAgICAgICAgICAgICAg ICAgICAgICAgICAgICAgICAgICAgICAgICAgICAgIC AgICAgICANCiAgICAgICAgICAgICAgICAgICAgICAgICAgICAgICAgICAgICAgICAgICAgICAgICAgIC AgICAgICAgICAgICAgICAgICAgICAgICAgICAgICAgICAgICAgICAgICAgICAgICANCjw/sLHhV3fjrN NedhL7T1vtXz6YQp3BWW3xr6HjRUXxUSlandCvQhaG EgNdCCQgZylBSdh5YRnnQJ6InTCwW9YbM3IqODiiOL9FQULmUICzxGNfOSUwNFDwPxD0GDCwDFxbJG8Z vVDyERamAGVeKPOdXzEpKDViVQQqBWYcIYJgRCXJCNGnEAAfWyUbOCbbYB0Tk7TerBP3MEm+Se3OFF7m p1FtBWddYcWfPM7hze8UBFoDTlAeP2XlumV2DCU7FA JhIe8ZSOKjOCCgfFLcAzKgNCUZPxBxL2SioI72PRVNEx3+AAvnfiCpHypTRuK2RLAcy5KyYDi2JN5OJQ IwPNh7yQEsQUDFJCT9KYf2pvIyZAOgrWVnECHPTPLxyCV6KgW3IhVwZwTwXVP5EJZiFT1xXHfnLE2FDG P0TFhhSMVhNJDpP8vOJgWxMVQzYVHmhIhwHY9IYqEu Z0SilwTxaEJsRnAmGWFWDd7+IJecwtTxEggHVyR8CTHli4RtWZk6DD5UCZPoUMmzZL0SEFLnxR2cBMus VD2YEtYcVXCfTETWImSiI49zzMAgAOs3C0UuBaCtVETgLoyqTFYuLLirAiAlFLSjTnAcBNwlPJ5+ID4+ BJudTE4KCXixdzPpRETgEp5GKJPqWHPxEM6uDKQfQG JrD3J3xPrxUDKQEgYsK0odvjyfGE7pBTOwJ273jOlmjgQcIJN4XGZfLh3XOACcOQY1UPNueEYhDzEcOY YDWInrRY3YvTDmZEW2qY9ySKptRWRmUQLuF7sSDdJtwLbyII01jIvigiWteIRkKIs+Mw9ZRH0ee6CtRG w1bhUaNDksFHX6ZLkbKHHkYGTtTLTkQQM6ZQE7HSDD HfVsRMCiURUmYZtzRIAkNAGsbk6YYCOlXYHeXRM6XSWkICSoYRTbUNywQYNiSRN2PhCoMFItNVAeKU9J RxYxEKDiQYEpOOhtWLVoLNXucz1TUXXkFDQcWJX5UOEfFYJiVLAlBNskSLTrKIA2NTruIBHuCYIdFX4M MhGxEXZgFIj1QXRdPCAzTISbxk3VOJRkGWNtUjc6PF UpFXYwAAXgXHdxXWJjKUDcKBB6OFMjCLQrEP9RPwRiTUWgHGFcKmFdESLiMRRnyh3USLIgJISeQydkRi AgOWCmGVCpZIdrYMHmSHCsGNO6BVSnFWAzDT4NSsOlFTUnFGDfMTSiWRCdAZNyks0FDBBeFEHlGGA9Rq OdSKCvVUAkOPzbRVNhTUM1VKA6YXCbWAFzRS4JXdZl NPQeKGY0MMRdBYCfAHBkou4DEZKpGLLuFcrbEcBdFFNnRFFqWVauYTVxAOL5UAm8SXHrJQVnIZ2RSzHa LGJaAIhqCKipXFWjOUVjrd6JNXVpPCWaMRS4RmCoADQxSDTyDEffDKRbFZO4UcR3LVSgXFRhGE5VJmOn AUPaNYb6BtloPYWgQVCgpu5QAXIoTVUmPVBwFZHiLR FbOKRkKHxyURGdXPVrFEv7BLHoZFIaZZ0AUoQbUFDxQmC1KFAqPFFzMSSjgj7ILFDpCEVbVYu9BQGyXS RiNFPcSOcbFKPiCQYpOaYvNIGtUWCnQZ0GFeFaYKUyCfK9EslaXBPhJFHzue8JMWVaXURpEnz3TzWtHD FyPHFqVMgwSUCvHSNjAEN4TPEyRLHkQP2ZKySuUVNp VqAuUvVnPEBpHZRlaf0VYENcVEEbTLHoFePlYVBbZQWbGApuWZMaQQH6Jzc9BGAsQCGyCW1FFxGlLRYx GsU5ScEwRSJeHCMibd0YPAAsQIAiVCJpVSCuSIDoUSJiBHmsXIJtZQA7DJa8AXAdVKWmWO5VMdHqXYSf BbE2GFYsGUPqSUYwwu0ZTRLwJMLtCjP1ZPYsIXLzJY SgDDe1azOouQEyFUr1XN6MT4YqimHvWegBAm9Yz558EGQ8GRZjEb0OC4efUs6vYZPbKGBNBk1REMh0Az PrTIK5RHC7AkNzGkC5IbA0ReyrS0GtDqBwVoB8GLR+ROmfGbM4KkLxLLihNKGxGWZ3VLbxFsH0CvVrXo WaTCOuSI5tXGMZFk4+TZjvyBYtjNtgYMBARoU1HNW1QPmeXDVOAm9O ID Date Data Source [id number] 11/14/2020 05:33:49 PM EDT [facility] Name Value Range Interpretation Code Description Data Lou rce(s) Supporting Document(s) Albumin [Mass/volume] in Serum or Plasma by Bromocresol green (BCG) dye binding method 3.2 g/dL 3.5-5.2 [facility] Bilirubin.total [Mass/volume] in Serum or Plasma 2.1 mg/dL <1.2 [facility] Calcium [Mass/volume] in Serum or Plasma 7.9 mg/dL 8.6-10.0 L [facility] Chloride [Moles/volume] in Serum or Plasma 100 mmol/L 98-107 [facility] Creatinine [Mass/volume] in Serum or Plasma 0.64 mg/dL 0.70-1.20 L [facility] Glucose [Mass/volume] in Serum or Plasma 94 mg/dL 70-140 [facility] Alkaline phosphatase [Enzymatic activity/volume] in Serum or Plasma 123 U/L 40-129 [facility] Potassium [Moles/volume] in Serum or Plasma 3.7 mmol/L 3.4-5.1 [facility] Protein [Mass/volume] in Serum or Plasma 5.8 g/dL 6.4-8.3 L [facility] Sodium [Moles/volume] in Serum or Plasma 130 mmol/L 136-145 L [facility] Aspartate aminotransferase [Enzymatic activity/volume] in Serum or Plasma 325 U/L <40 H [facility] Urea nitrogen [Mass/volume] in Serum or Plasma 13 mg/dL 6-20 [facility] Osmolality of Serum or Plasma by calculation 269 mosm/kg 275-300 L [facility] Creatinine/Urea nitrogen [Mass Ratio] in Serum or Plasma 21 [facility] Bicarbonate [Moles/volume] in Serum 21 mmol/L 22-29 L [facility] Alanine aminotransferase [Enzymatic activity/volume] in Seru m or Plasma 127 U/L <41 [facility] Anion gap 3 in Serum or Plasma 9 mmol/L 8-15 [facility] Glomerular filtration rate/1.73 sq M pre dicted among non-blacks [Volume Rate/Area] in Serum or Plasma by Creatinine-based formula (MDRD) >6 0 [facility] Glomerular filtration rate/1.73 sq M pre dicted among blacks [Volume Rate/Area] in Serum or Plasma by Creatinine-based formula (MDRD) >60 [facility] ID Date Data Source [id number] 11/14/2020 05:33:49 PM [facility] Name Value Range Interpretation Code Description Data Lou rce(s) Supporting Document(s) Magnesium [Mass/volume] in Serum or Plasma 2.5 mg/dL 1.6-2.6 [facility] ID Date Data Source [id number] 11/14/2020 05:33:49 PM [facility] Value Range Interpretation Code Description Data Lou rce(s) Supporting Document(s) Phosphate [Mass/volume] in Serum or Plasma 1.3 mg/dL 2.5-4.5 [facility] ID Date Data Source [id number] 11/14/2020 06:06:06 PM [facility] Name Value Range Interpretation Code Description Data Lou rce(s) Supporting Document(s) Leukocytes [#/volume] in Blood by Automated count 7.8 10*3/uL 4-10 [facility] Erythrocytes [#/volume] in Blood by Automated count 3.15 10*6/uL 4.6- 6.1 [facility] Hemoglobin [Mass/volume] in Blood 8.3 g/dL 13.5-18 L [facility] Hematocrit [Volume Fraction] of Blood by Automated count 25.4 % 4 1-53 L [facility] Erythrocyte mean corpuscular volume [Entitic volume] by Auto mated count 80.6 fL 80-96 [facility] Erythrocyte mean corpuscular hemoglobin [Entitic mass] by Automated count 26.4 pg 27-33 L [facility] Erythrocyte mean corpuscular hemoglobin concentration [Mass/volume] by Automated count 32.8 g/dL 32.0-36.0 [facility] E[facility]th[facility] distribution width [Ratio] by Automated count 18.5 % 11.5-14.5 H [facility] Platelets [#/volume] in Blood by Automated count 116 10*3/uL 150-400 L [facility] Confirmed Differential cell count method - Blood [facility] Neutrophils/100 leukocytes in Blood by Automated count 76 % [facility] Lymphocytes/100 leukocytes in Blood by Automated count 8 % [facility] Monocytes/100 leukocytes in Blood by Automated count 13 % [facility] Eosinophils/100 leukocytes in Blood by Automated count 2 % [facility] Basophils/100 leukocytes in Blood by Automated count 1 % [facility] Neutrophils [#/volume] in Blood by Automated count 5.95 10*3/uL 1.8-7 .0 [facility] Lymphocytes [#/volume] in Blood by Automated count 0.63 10*3/uL 1.2-4 .0 L [facility] Monocytes [#/volume] in Blood by Automated count 1.05 10*3/uL 0-0.8 H [facility] Eosinophils [#/volume] in Blood by Automated count 0.19 10*3/uL 0-0.5 [facility] Basophils [#/volume] in Blood by Automated count 0.04 10*3/uL 0-0.2 [facility] Nucleated erythrocytes/100 leukocytes [Ratio] in Blood by Automated count 0 /100{WBCs} 0-0 [facility] ID Date Data Source [id number] 11/14/2020 01:43:47 PM [facility] Name Value Range Interpretation Code Description Data Lou rce(s) Supporting Document(s) Ammonia [Moles/volume] in Plasma 86 umol/L 16-60 H [facility] ID Date Data Source [id number] 11/14/2020 08:19:36 AM [facility] Name Value Range Interpretation Code Description Data Lou rce(s) Supporting Document(s) Bicarbonate [Moles/volume] in Serum 21 mmol/L 22-29 L [facility] Chloride [Moles/volume] in Serum or Plasma 99 mmol/L 98-107 [facility] Confirmed Creatinine [Mass/volume] in Serum or Plasma 0.65 mg/dL 0.70-1.20 L [facility] Glucose [Mass/volume] in Serum or Plasma 97 mg/dL 70-140 [facility] Potassium [Moles/volume] in Serum or Plasma 3.0 mmol/L 3.4-5.1 L [facility] Confirmed Sodium [Moles/volume] in Serum or Plasma 130 mmol/L 136-145 L [facility] Confirmed Urea nitrogen [Mass/volume] in Serum or Plasma 15 mg/dL 6-20 [facility] Anion gap 3 in Serum or Plasma 11 mmol/L 8-15 [facility] Confirmed Osmolality of Serum or Plasma by calculation 271 mosm/kg 275-300 L [facility] Confirmed Creatinine/Urea nitrogen [Mass Ratio] in Serum or Plasma 22 [facility] Calcium [Mass/volume] in Serum or Plasma 7.8 mg/dL 8.6-10.0 L [facility] Glomerular filtration rate/1.73 sq M pre dicted among non-blacks [Volume Rate/Area] in Serum or Plasma by Creatinine-based formula (MDRD) >6 0 [facility] Glomerular filtration rate/1.73 sq M pre dicted among blacks [Volume Rate/Area] in Serum or Plasma by Creatinine-based formula (MDRD) >60 [facility] ID Date Data Source [id number] 11/14/2020 08:31:17 AM EDT [facility] Name Value Range Interpretation Code Description Data Lou rce(s) Supporting Document(s) Leukocytes [#/volume] in Blood by Automated count 6.9 10*3/uL 4-10 [facility] Erythrocytes [#/volume] in Blood by Automated count 2.97 10*6/uL 4.6- 6.1 [facility] Hemoglobin [Mass/volume] in Blood 7.9 g/dL 13.5-18 [facility] Hematocrit [Volume Fraction] of Blood by Automated count 23.7 % 4 1-53 [facility] Erythrocyte mean corpuscular volume [Entitic volume] by Auto mated count 79.8 fL 80-96 [facility] Erythrocyte mean corpuscular hemoglobin [Entitic mass] by Automated count 26.5 pg 27-33 [facility] Erythrocyte mean corpuscular hemoglobin concentration [Mass/volume] by Automated count 33.2 g/dL 32.0-36.0 [facility] E[facility]throcyte distribution width [Ratio] by Automated count 18.9 % 11.5-14.5 H [facility] Platelets [#/volume] in Blood by Automated count 99 10*3/uL 150-400 [facility] Confirmed Differential cell count method - Blood [facility] Neutrophils/100 leukocytes in Blood by Automated count 77 % [facility] Lymphocytes/100 leukocytes in Blood by Automated count 7 % [facility] Monocytes/100 leukocytes in Blood by Automated count 12 % [facility] Eosinophils/100 leukocytes in Blood by Automated count 3 % [facility] Basophils/100 leukocytes in Blood by Automated count 1 % [facility] Neutrophils [#/volume] in Blood by Automated count 5.45 10*3/uL 1.8-7 .0 [facility] Lymphocytes [#/volume] in Blood by Automated count 0.47 10*3/uL 1.2-4 .0 L [facility] Monocytes [#/volume] in Blood by Automated count 0.80 10*3/uL 0-0.8 [facility] Eosinophils [#/volume] in Blood by Automated count 0.18 10*3/uL 0-0.5 [facility] Basophils [#/volume] in Blood by Automated count 0.03 10*3/uL 0-0.2 [facility] Nucleated erythrocytes/100 leukocytes [Ratio] in Blood by Automated count 0 /100{WBCs} 0-0 [facility] ID Date Data Source [id number] 11/14/2020 11:09:27 AM [facility] Name Value Range Interpretation Code Description Data Lou rce(s) Supporting Document(s) Magnesium [Mass/volume] in Serum or Plasma 2.6 mg/dL 1.6-2.6 [facility] ID Date Data Source [id number] 11/14/2020 11:09:27 AM [facility] Value Range Interpretation Code Description Data Lou rce(s) Supporting Document(s) Phosphate [Mass/volume] in Serum or Plasma 1.6 mg/dL 2.5-4.5 [facility] ID Date Data Source [id number] 11/13/2020 11:52:58 PM [facility] Value Range Interpretation Code Description Data Lou rce(s) Supporting Document(s) ABO and Rh group [Type] in Blood [facility] Blood bank comment [facility] ID Date Data Source [id number] 11/13/2020 09:59:28 PM [facility] Value Range Interpretation Code Description Data Lou rce(s) Supporting Document(s) Sodium [Moles/volume] in Blood 132 mmol/L 136-145 L [facility] Potassium [Moles/volume] in Blood 3.1 mmol/L 3.4-5.1 L [facility] Chloride [Moles/volume] in Blood 97 mmol/L 98-107 L [facility] Carbon dioxide, total [Moles/volume] in Blood 21 mmol/L 22-29 L [facility] Calcium.ionized [Moles/volume] in Blood 1.19 mmol/L 1.13-1.32 [facility] Glucose [Mass/volume] in Blood 115 mg/dL 70-140 [facility] Urea nitrogen [Mass/volume] in Blood 15 mg/dL 6-20 [facility] Creatinine [Mass/volume] in Blood 0.7 mg/dL 0.70-1.20 [facility] Hematocrit [Volume Fraction] of Blood 22 % 41-53 L [facility] Hemoglobin [Mass/volume] in Blood by calculation 7.5 g/dL 13.5-18.0 [facility] ID Date Data Source [id number] 11/13/2020 09:59:57 PM EDT [facility] Name Value Range Interpretation Code Description Data Lou rce(s) Supporting Document(s) Leukocytes [#/volume] in Blood by Automated count 7.0 10*3/uL 4-10 [facility] Erythrocytes [#/volume] in Blood by Automated count 2.58 10*6/uL 4.6- 6.1 L [facility] Hemoglobin [Mass/volume] in Blood 7.0 g/dL 13.5-18 L [facility] Hematocrit [Volume Fraction] of Blood by Automated count 20.6 % 4 1-53 [facility] Called to and read back by Zeny cintron [employer] 2159 [place] 147 Erythrocyte mean corpuscular volume [Entitic volume] by Auto mated count 79.5 fL 80-96 L [facility] Erythrocyte mean corpuscular hemoglobin [Entitic mass] by Automated count 27.1 pg 27-33 [facility] Erythrocyte mean corpuscular hemoglobin concentration [Mass/volume] by Automated count 34.0 g/dL 32.0-36.0 [facility] E[facility]throcyte distribution width [Ratio] by Automated count 19.9 % 11.5-14.5 H [facility] Platelets [#/volume] in Blood by Automated count 102 10*3/uL 150-400 L [facility] Differential cell count method - Blood [facility] Neutrophils/100 leukocytes in Blood by Automated count 78 % [facility] Lymphocytes/100 leukocytes in Blood by Automated count 7 % [facility] Monocytes/100 leukocytes in Blood by Automated count 13 % [facility] Eosinophils/100 leukocytes in Blood by Automated count 1 % [facility] Basophils/100 leukocytes in Blood by Automated count 1 % [facility] Neutrophils [#/volume] in Blood by Automated count 5.50 10*3/uL 1.8-7 .0 [facility] Lymphocytes [#/volume] in Blood by Automated count 0.47 10*3/uL 1.2-4 .0 L [facility] Monocytes [#/volume] in Blood by Automated count 0.89 10*3/uL 0-0.8 H [facility] Eosinophils [#/volume] in Blood by Automated count 0.09 10*3/uL 0-0.5 [facility] Basophils [#/volume] in Blood by Automated count 0.04 10*3/uL 0-0.2 [facility] Nucleated erythrocytes/100 leukocytes [Ratio] in Blood by Automated count 0 /100{WBCs} 0-0 [facility] ID Date Data Source [id number] 11/13/2020 10:08:20 PM [facility] Value Range Interpretation Code Description Data Lou rce(s) Supporting Document(s) Prothrombin time (PT) 16.6 s 12.5-14.9 H [facility] INR in Platelet poor plasma by Coagulation assay 1.32 [facility] Routine intensity oral anticoagulation I NR is typically 2.0-3.0. Target INR must be clinically individualized. ID Date Data Source [id number] 11/13/2020 10:17:51 PM [facility] Value Range Interpretation Code Description Data Lou rce(s) Supporting Document(s) Lipase [Enzymatic activity/volume] in Serum or Plasma 44 U/L 13-6 0 [facility] ID Date Data Source [id number] 11/13/2020 10:17:51 PM [facility] Value Range Interpretation Code Description Data Lou rce(s) Supporting Document(s) Albumin [Mass/volume] in Serum or Plasma by Bromocresol green (BCG) dye binding method 3.0 g/dL 3.5-5.2 [facility] Bilirubin.total [Mass/volume] in Serum or Plasma 1.7 mg/dL <1.2 H [facility] Calcium [Mass/volume] in Serum or Plasma 7.8 mg/dL 8.6-10.0 L [facility] Chloride [Moles/volume] in Serum or Plasma 97 mmol/L 98-107 L [facility] Creatinine [Mass/volume] in Serum or Plasma 0.66 mg/dL 0.70-1.20 L [facility] Glucose [Mass/volume] in Serum or Plasma 115 mg/dL 70-140 [facility] Alkaline phosphatase [Enzymatic activity/volume] in Serum or Plasma 127 U/L 40-129 [facility] Potassium [Moles/volume] in Serum or Plasma 3.1 mmol/L 3.4-5.1 L [facility] Protein [Mass/volume] in Serum or Plasma 5.5 g/dL 6.4-8.3 L [facility] Sodium [Moles/volume] in Serum or Plasma 128 mmol/L 136-145 L [facility] Aspartate aminotransferase [Enzymatic activity/volume] in Serum or Plasma 189 U/L <40 H [facility] Urea nitrogen [Mass/volume] in Serum or Plasma 16 mg/dL 6-20 [facility] Osmolality of Serum or Plasma by calculation 269 mosm/kg 275-300 L [facility] Creatinine/Urea nitrogen [Mass Ratio] in Serum or Plasma 24 [facility] Bicarbonate [Moles/volume] in Serum 22 mmol/L 22-29 [facility] Alanine aminotransferase [Enzymatic activity/volume] in Seru m or Plasma 74 U/L <41 H [facility] Anion gap 3 in Serum or Plasma 9 mmol/L 8-15 [facility] Glomerular filtration rate/1.73 sq M pre dicted among non-blacks [Volume Rate/Area] in Serum or Plasma by Creatinine-based formula (MDRD) >6 0 [facility] Glomerular filtration rate/1.73 sq M pre dicted among blacks [Volume Rate/Area] in Serum or Plasma by Creatinine-based formula (MDRD) >60 [facility] ID Date Data Source [id number] 11/16/2020 07:33:03 AM EDT [facility] Name Value Range Interpretation Code Description Data Lou rce(s) Supporting Document(s) ABO and Rh group [Type] in Blood [facility] Blood group antibody screen [Presence] in Serum or Plasma [facility] Performed at [facility], Raquel brody, [place], [id number] ID Date Data Source [id number] 11/13/2020 03:31:00 PM EDT [facility] Name Value Range Interpretation Code Description Data Lou rce(s) Supporting Document(s) SARS coronavirus 2 RNA [Presence] in Res piratory specimen by TOYA with probe detection NEGATIVE [facility] This lab was ordered by [facility] a nd reported by [facility]. Procedure Social History Code Duration Value Status Description Data Source(s ) Alcohol intake 11/16/2020 12:00:00 AM EDT Current drinker of al cohol (finding) completed Current drinker of alcohol (finding) [facility] Tobacco use and exposure 11/16/2020 12:00:00 AM EDT Never used co mpleted Never used [facility] Cigarette pack-years 11/16/2020 12:00:00 AM EDT [facility] Cigarettes smoked current (pack per day) - Reported 11/17/19 12:00:[address] [facility] Smoking 11/16/2020 12:00:00 AM EDT Current every day smoker co mpleted Current every day smoker [facility] Vital Signs ID Date Data Source UNK Name Value Range Interpretation Code Description Data Source(s) Body weight 2480 [oz_av] 2480 [oz_av] BRISTOL ([facility]) Diastolic blood pressure 78 mm[Hg] 78 mm[Hg] BRISTOL ([facility]) Body height 65 [in_i] 65 [in_i] [facility]) Body mass index (BMI) [Ratio] 25.8 kg/m2 25.8 k g/m2 SUKI ([facility]) Systolic blood pressure 121 mm[Hg] 121 mm[Hg] Venkata ROBBINS ([facility]) ID Date Data Source [id number] 12/14/2020 04:10:11 PM EDT [facility] Name Value Range Interpretation Code Description Data Source(s) WEIGHT RECORDED 151.3 lb 151.3 lb [facility] Body height Measured 66 in 66 in [facility] TRANSFER FROM [facility] ID Date Data Source [id number] 12/01/2020 11:10:43 AM [facility] Name Value Range Interpretation Code Description Data Source(s) TRANSFER FROM [facility] Patient Treatment Plan of Care Planned Activity Planned Date Details Description Data Source (s) Lisinopril 5 MG Oral Tablet 12/12/2020 12:00:00 AM [facility] Thiamine 100 MG Oral Tablet 12/12/2020 12:00:00 AM [facility] Acetaminophen 325 MG Oral Tablet 12/12/2020 12:00:00 AM [facility] Acetaminophen 325 MG Oral Tablet 12/10/2020 04:46:26 PM [facility] Folic Acid 1 MG Oral Tablet 2020 12:00:00 AM [facility] Vitamin B 12 0.25 MG Oral Tablet 2020 12:00:00 AM [facility] pantoprazole 40 MG Delayed Release Oral Tablet 11/17/2020 12:00:00 AM [facility] Lisinopril 30 MG Oral Tablet [facility] duloxetine 60 MG Delayed Release Oral Capsule SUKI ([facility]) Clindamycin 300 MG Oral Capsule SUKI ([facility])
[2021-04-04 16:38] LABS: EOS # 0.1 10^3/uL (0.0-0.5); LYMPH # 1.1 10^3/uL (1.5-5.0); LYMPH % 19.6 % (24.0-44.0); MEAN CORPUSCULAR HEMOGLOBIN 15.6 pg (27.0-33.0); MEAN CORPUSCULAR HGB CONC 23.2 g/dl (32.0-36.5); MEAN CORPUSCULAR VOLUME 67.1 fl (80.0-96.0); MONO # 0.6 10^3/uL (0.0-0.8); MONO % 11.2 % (2.0-8.0); NEUTROPHILS # 3.7 10^3/uL (1.5-8.5); NEUTROPHILS % 66.7 % (36.0-66.0); PLATELET COUNT, AUTOMATED 177 10^3/uL (150-450); RED BLOOD COUNT 1.67 10^6/uL (4.30-6.10); WHITE BLOOD COUNT 5.5 10^3/uL (4.0-10.0)
[2021-04-04 16:42] LABS: HEMATOCRIT 11.2 % (42.0-52.0)
[2021-04-04 16:43] LABS: HEMOGLOBIN 2.6 g/dl (13.5-17.5)
[2021-04-04 16:47] LABS: CK-MB VALUE MASS < 1.0 NG/ML (<3.6); CPK CREATINE PHOSPHOKINASE 35 U/L (39-308); MB/CK RELATIVE INDEX 2.86 (< OR =4); TROPONIN I < 0.02 NG/ML (< 0.10)
[2021-04-04] MEDS ORDERED: LORazepam 2 MG TAB PO PRN (17:05)
[2021-04-04 17:26] LABS: INR 1.35; PARTIAL THROMBOPLASTIN TIME 34.9 SECONDS (25.9-37.0); PROTHROMBIN TIME 17.1 SECONDS (12.7-14.5)
[2021-04-04 17:36] LABS: ALT/SGPT 32 U/L (12-78); BILIRUBIN,DIRECT 0.4 MG/DL (0.0-0.2); BILIRUBIN,TOTAL 1.1 MG/DL (0.2-1.0); BLOOD UREA NITROGEN 4 MG/DL (7-18); CALCIUM LEVEL 8.4 MG/DL (8.5-10.1); CARBON DIOXIDE LEVEL 25 MEQ/L (21-32); CHLORIDE LEVEL 106 MEQ/L (98-107); CREATININE FOR GFR 0.48 MG/DL (0.70-1.30); ETHYL ALCOHOL (ETHANOL) 0.088 % (0.000-0.010); GLOMERULAR FILTRATION RATE > 60.0 (>60); GLUCOSE, FASTING 93 MG/DL (70-100); LIPASE 279 U/L (73-393); POTASSIUM SERUM 3.1 MEQ/L (3.5-5.1); SODIUM LEVEL 138 MEQ/L (136-145); TOTAL PROTEIN 6.6 GM/DL (6.4-8.2)
[2021-04-04 17:55] VITALS: BP 125/69
[2021-04-04 18:14] VITALS: BP 128/69
[2021-04-04 18:20] LABS: RSV AMPLIFICATION NEGATIVE (NEGATIVE)
--- NOTE | 2021-04-04 18:42 | ECGEPIP ---
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
[2021-04-04 19:20] VITALS: BP 122/59
[2021-04-04] MEDS ORDERED: ISOVUE-370 76% 100ML VIAL As Ordered ONE (19:34)
[2021-04-04] MEDS ORDERED: HOME MED LIST COMPLETE! XX SCH (20:20)
--- NOTE | 2021-04-04 20:29 | REPVR ---
PROCEDURE INFORMATION: Exam: CT Angiography Abdomen and Pelvis With Contrast, GI Bleeding Exam date and time: 04/04/2021 7:48 PM Age: 40 years old Clinical indication: Abdominal pain; Generalized; Additional info: Abdominal pain; ? Bleeding TECHNIQUE: Imaging protocol: Computed tomographic angiography of the abdomen and pelvis with contrast. 3D rendering (Not supervised by radiologist): MIP and/or 3D reconstructed images were created by the technologist. Radiation optimization: All CT scans at this facility use at least one of these dose optimization techniques: automated exposure control; mA and/or kV adjustment per patient size (includes targeted exams where dose is matched to clinical indication); or iterative reconstruction. Contrast material: ISOVUE 370; Contrast volume: 100 ml; Contrast route: INTRAVENOUS (IV); COMPARISON: CT ABD PELVIS WITH CONTRAST 02/22/2019 2:12 PM FINDINGS: Aorta: No aortic aneurysm. No aortic dissection. Celiac trunk and mesenteric arteries: No occlusion or significant stenosis. Renal arteries: No occlusion or significant stenosis. Right iliac arteries: No occlusion or significant stenosis. Left iliac arteries: No occlusion or significant stenosis. Liver: 2.1 cm hypodensity in the right hepatic lobe. Liver surface is nodular suspicious for cirrhosis. Gallbladder and bile ducts: Unremarkable. No calcified stones. No ductal dilation. Pancreas: Unremarkable. No mass. No ductal dilation. Spleen: Unremarkable. No splenomegaly. Adrenal glands: Normal. No mass. Kidneys and ureters: Unremarkable. No solid mass. No hydronephrosis. Stomach and bowel: Diverticulosis of the sigmoid colon. Appendix: No evidence of appendicitis. Intraperitoneal space: Unremarkable. No free air. No significant fluid collection. Lymph nodes: Unremarkable. No enlarged lymph nodes. Urinary bladder: Unremarkable. No mass. Reproductive: Unremarkable as visualized. Bones/joints: No acute fracture. No dislocation. Soft tissues: Unremarkable. IMPRESSION: Liver surface is nodular suspicious for cirrhosis. Indeterminate hyperdensity in the right hepatic lobe measuring 2.[address] or MRI with hepatic protocol can be obtained for further evaluation. Electronically signed by: Mario Alberto Nelson On 04/04/2021 20:29:29 PM
[2021-04-04 21:27] LABS: MEAN CORPUSCULAR HEMOGLOBIN 19.6 pg (27.0-33.0); MEAN CORPUSCULAR HGB CONC 27.1 g/dl (32.0-36.5); MEAN CORPUSCULAR VOLUME 72.4 fl (80.0-96.0); PLATELET COUNT, AUTOMATED 182 10^3/uL (150-450); RED BLOOD COUNT 1.99 10^6/uL (4.30-6.10); WHITE BLOOD COUNT 5.9 10^3/uL (4.0-10.0)
[2021-04-04 21:31] LABS: HEMATOCRIT 14.4 % (42.0-52.0)
[2021-04-04 21:35] LABS: HEMOGLOBIN 3.9 g/dl (13.5-17.5)
[2021-04-04 21:57] VITALS: BP 133/60
[2021-04-04 22:46] VITALS: BP 113/67
[2021-04-05] VITALS (15 sets, daily range): BP systolic 109–154; BP diastolic 53–89
[2021-04-05 00:28] LABS: BASO % 0.5 % (0.0-1.0); EOS # 0.2 10^3/uL (0.0-0.5); EOS % 2.7 % (0.0-3.0); LYMPH # 0.9 10^3/uL (1.5-5.0); LYMPH % 15.4 % (24.0-44.0); MEAN CORPUSCULAR HEMOGLOBIN 20.4 pg (27.0-33.0); MEAN CORPUSCULAR HGB CONC 28.3 g/dl (32.0-36.5); MEAN CORPUSCULAR VOLUME 72.2 fl (80.0-96.0); MONO % 16.3 % (2.0-8.0); NEUTROPHILS # 3.8 10^3/uL (1.5-8.5); NEUTROPHILS % 64.8 % (36.0-66.0); PLATELET COUNT, AUTOMATED 171 10^3/uL (150-450); WHITE BLOOD COUNT 5.8 10^3/uL (4.0-10.0)
[2021-04-05 00:30] LABS: HEMATOCRIT 16.6 % (42.0-52.0); HEMOGLOBIN 4.7 g/dl (13.5-17.5)
[2021-04-05] MEDS: THIAMINE 100 MG TAB PO SCH ×3 (00:37→20:38)
[2021-04-05] MEDS ORDERED: MAALOX 30 ML SUSP *UDC PO PRN (01:50)
[2021-04-05] MEDS ORDERED: ACETAMINOPHEN TAB 650MG DOSE (2X325MG) PO PRN (01:50)
[2021-04-05] MEDS ORDERED: MOM 30ML SUSPENSION UDC PO PRN (01:50)
[2021-04-05] MEDS ORDERED: POTASSIUM CHLORIDE 10MEQ SR TABLET PO ONE ×2 (02:00→06:00)
--- OUTSIDE RECORDS SUMMARY | 2021-04-05 02:00 | CCD ---
Author Author [facility] Organization [facility] Address Unknown Phone Unavailable Care Team Providers Care Vp Talent Management Name Role Phone MANUELA RATLIFF DORCAS RPA-C [...] MANUELA DORCAS RPA-C Unavailable Unavailable RATLIFF, MANUELA DORACS RPA-C Unavailable Unavailable RATLIFF, MANUELA DORCAS RPA-C [...] Unavailable Unavailable RON LINARES MD Unavailable Unavailable Bethanie Walls MD Unavailable Unavailable Bethanie Walls MD Unavailable Unavailable Bethanie Walls MD Unavailable Unavailable Bethanie Walls MD Unavailable Unavailable Bethanie Walls MD Unavailable Unavailable Bethanie Walls MD Unavailable Unavailable Bethanie Walls MD Unavailable Unavailable Renny FUNEZ MD Unavailable Unavailable Renny FUNEZ MD Unavailable Unavailable Gutsche , Jaxon Unavailable Gutschjosh SHORT, Jaxon Unavailable Gutschjosh SHORT, Jaxon Unavailable Gutsche , Jaxon Unavailable Gutsche , Jaxon Unavailable Gutsche , Jaxon Unavailable Gutsche , Jaxon Unavailable Gutsche , Jaxon Unavailable Gutsche , Jaxon Unavailable Gutsche , Jaxon Unavailable Gutsche , Jaxon Unavailable Gutsche , Jaxon Unavailable Gutsche , Jaxon Unavailable Gutsche MD, Jaxon Unavailable Nicola MD, Jaxon Unavailable Nicola MD, Jaxon Unavailable Deandrasche MD, Jaxon Unavailable Alexe MD, Jaxon Unavailable Nicola MD, Jaxon Unavailable Nicola MD, Jaxon Unavailable ALEXE, JAXON [id number] Unavailable Unavailable GHASEMI, LAMONT MD Unavailable Unavailable [...] is protected by Article 27-F of the [place] State Public Health law. If you continue you may have access to information: Regarding HIV / AIDS; Provided by facilities licensed or operated by the [facility] Office of Mental Health; or Provided by the [facility] Office for People With Developmental Disabilities. If such information is present, then the following [facility] mandated warning applies: This information has been [...] law may result in a fine or detention sentence or both. A general authorization for the release of medical or other information is NOT sufficient authorization for further disc losure. Allergies and Adverse Reactions Type Description Substance Reaction Status Data Source(s ) Propensity to adverse reactions PENICILLINS Penicillin [facility] Propensity to adverse reactions NAPROXEN NAPROXEN [facility] Propensity to adverse reactions IBUPROFEN Ibuprofen [facility] Propensity to adverse reactions DIPHENHYDRAMINE DIPHENHYDRAMINE [facility] Drug allergy AMOXICILLIN-POT CLAVULANATE AMOXICILLIN-POT CLAVULANATE [facility] Allergy to substance Allergy to substance Naproxen [place] ([facility]) Allergy to substance Allergy to substance Ibuprofen [place] ([facility]) Allergy to substance Allergy to substance Diphenhydramine Hcl [place]RE[place] ([facility]) Family History Family Member Name Family Member Gender Family Member Status Date o f Status Description Data Source(s) Unknown Unknown Problem MEDENT ([facility], [facility]) Encounters Encounter Providers Location Date Indications Data Source(s ) Outpatient Attender: Soo RamachandranAttender: SOO LING . 03/23/2021 12:00:00 AM [facility] Inpatient Attender: Antonio Lee an[place]: LAMONT GRAY MDAdmitter: LAMONT GRAY MDReferrer: LAMONT GRAY MD [id number] 12/08/2020 12:00: 00 AM EDT - 12/12/2020 01:58:00 PM [facility] Patient discharged. SUNITA BartlettC: [address], [facility] [address], [place] [address], Ph. Attender: DORCAS ISAACS [facility] Medical 11/25/2020 12:00:00 AM EDT [place] ([facility]) Outpatient Attender: SOO RAMACHANDRAN . [id number] 11/17/2020 03:42:22 PM EDT [facility] Inpatient Attender: RON HERRERA JAMIRJULIANNE MDAttender: Jaxon Last MDAttender: JAXON LAST [id number]: Bethanie Walls MDAttender: DONAL HUBBARD MDAttender: ALEX ZENDEJAS MDAdmitter: Bethanie Walls MDReferrer: DONAL HUBBARD MD [id number] 11/13/2020 12:00:00 AM EDT - 11/17/2020 05:29:00 PM EDT [facility] Patient discharged. Immunizations Vaccine Date Status Description Data Source(s) SARS-COV-2 (COVID-19) vaccine, UNSPECIFIED 10/30/2020 12:00:00 A M EDT completed 10/30/2020 SUKI ([facility]) COVID-19 VACCINE Todd 10/30/2020 12:00:00 AM EDT completed [facility] [employer] Vaccine Series Complete: YESThis Data wa s Submitted to [facility] Via [employer]. Medications Medication Brand Name Start Date Product Form Dose Route Admi nistrative Instructions Pharmacy Instructions Status Indications Reaction Description Data Source(s) Acetaminophen 325 MG Oral Tablet Acetaminophen 325 MG Oral T ablet 12/12/2020 12:00:00 AM EDT 650 mg Oral active Take 2 tablets by mouth every 8 (eight) hours as needed for up to 10 days [facility] Thiamine 100 MG Oral Tablet Thiamine HCl 100 MG Oral T ablet (B-1) Thiamine HCl 100 MG Oral Tablet (B-1) 12/12/2020 12:00:00 AM EDT 100 mg Oral active Take [facility] 5 MG Oral Tablet Lisinopril 5 MG Oral Table t (PRINIVIL,ZESTRIL) Lisinopril 5 MG Oral Tablet (PRINIVIL,ZESTRIL) 12/12/2020 12:00:00 AM EDT 5 mg Oral active Take 1 tablet by mouth d [facility] pantoprazole 40 MG Delayed Release Oral Tablet pantoprazole (PROTONIX) EC tablet 40 mg pantoprazole (PROTONIX) EC tablet 40 mg 12/11/2020 07:30:00 AM E DT 40 mg Oral active 40 mg, Ora l, Before Breakfast, First dose (after last modification) on Sun12/11/20 at 0730, For 5 doses
Do not crush or chew
[facility] Medication administered onsite Acetaminophen 325 MG [...] mg from all sources in 24 hours.
[facility] Medication administered onsite Oxycodone Hydrochloride 5 MG Oral Tablet oxyCODONE (ROXICODONE) immediate release tablet 5 mg oxyCODONE (ROXICODONE) immediate release tablet 5 mg 12/10/2020 04:45:00 PM EDT 5 mg Oral completed 5 mg, Oral, Once, On Sun12/10/20 at 1645, For 1 dose
Oxycodone immediate release is limited to 10 mg per dose. Higher doses ( only) require Pain Service consultation and approval.
[facility] Medication administered onsite fentaNYL (SUBLIMAZE) (PF) injection 4383-1954-16 12/10/2020 12:18:14 PM EDT completed Code/Trauma Medicati on, Starting on Sun12/10/[address] [place] [address] Medication administered onsite 2 ML Midazolam 1 MG/ML Injection midazolam (PF) (VERSE D) injection midazolam (PF) (VERSED) injection 12/10/2020 12:10:25 PM EDT aborted Code/Trauma Medication, Starting on Sun12/10/[address] [place] [address] Medication administered onsite fentaNYL (SUBLIMAZE) (PF) injection [id number] 12/10/2020 12:10:02 PM EDT aborted Code/Trauma Medicati on, Starting on Sun12/10/[address] [place] [address] Medication administered onsite 2 ML Midazolam 1 MG/ML Injection midazolam (PF) (VERSE D) injection midazolam (PF) (VERSED) injection 12/10/2020 12:09:08 PM EDT aborted Code/Trauma Medication, Starting on Sun12/10/20 at 1209 [facility] Medication administered onsite fentaNYL (SUBLIMAZE) (PF) injection 6486-4682-43 12/10/2020 12:08:42 PM EDT aborted Code/Trauma Medicati on, Starting on Sun12/10/20 at 1208 [facility] Medication administered onsite phytonadione (VITAMIN K1) 1 mg/mL oral solution 10 mg 12/09/2020 07:35:00 PM EDT 10 mg Oral completed 10 mg, Oral, Daily Standard, First dose on Sun12/09/20 at 1945, For 3 days [facility] Medication administered onsite NaCl infusion 0.9 % [id number] 12/09/2020 07:00:00 PM EDT Intravenous aborted at 100 mL/hr, Intrav enous, Continuous, Starting on Sun12/09/20 at 1900, For 24 hours [facility] Medication administered onsite Bisacodyl 5 MG Delayed Release Oral Tablet bisacodyl ( DULCOLAX) EC tablet 20 mg bisacodyl (DULCOLAX) EC tablet 20 mg 12/09/2020 05:45:00 PM EDT 20 mg Oral completed 20 mg, Oral, Onc e, On Sun12/09/20 at 1745, For 1 dose
Do not crush or chew
[facility] Medication administered onsite pantoprazole 40 MG Delayed Release Oral Tablet pantoprazole (PROTONIX) EC tablet 40 mg pantoprazole (PROTONIX) EC tablet 40 mg 12/09/2020 05:30:00 PM E DT 40 mg Oral aborted 40 mg, Ora l, Two times daily before breakfast and dinner, First dose on Sun12/09/20 at 1730, For 30 days
Do not crush or chew
[facility] Medication administered onsite 2 ML Midazolam 1 MG/ML Injection midazolam (PF) (VERSE D) injection midazolam (PF) (VERSED) injection 12/09/2020 05:04:35 PM EDT completed Code/Trauma Medication, Starting on Sun12/09/20 at 1704 [facility] Medication administered onsite fentaNYL (SUBLIMAZE) (PF) injection [id number] 12/09/2020 05:04:11 PM EDT completed Code/Trauma Medicati on, Starting on Carol 12/09/20 at 1704 [facility] Medication administered onsite 2 ML Midazolam 1 MG/ML Injection midazolam (PF) (VERSE D) injection midazolam (PF) (VERSED) injection 12/09/2020 05:02:04 PM EDT completed Code/Trauma Medication, Starting on Carol 12/09/20 at 1702 [facility] Medication administered onsite fentaNYL (SUBLIMAZE) (PF) injection [id number] 12/09/2020 05:01:47 PM EDT completed Code/Trauma Medicati on, Starting on Carol 12/09/20 at 1701 [facility] Medication administered onsite NaCl infusion 0.9 % [id number] 12/09/2020 03:00:00 PM EDT Intravenous aborted at 100 mL/hr, Intrav enous, Continuous, Starting on Carol 12/09/20 at 1500, For 24 hours [facility] Medication administered onsite Oxycodone Hydrochloride 5 [...] only) require Pain Service consultation and approval.
[facility] Medication administered onsite Escitalopram 10 MG Oral Tablet escitalopram (LEXAPRO) tablet 20 mg escitalopram (LEXAPRO) tablet 20 mg 12/09/2020 09:00:00 AM EDT 20 mg Oral active 20 mg, Oral, Daily Standard, First dose on Carol 12/09/20 at 0900, For 30 days [facility] Medication administered onsite multivitamin tablet 1 tablet [id number] 12/09/2020 09:00:00 AM EDT 1 {tbl} Oral active 1 tablet, Oral , Daily Standard, First dose on Carol 12/09/20 at 0900, For 30 days [facility] Medication administered onsite Ceftriaxone 1000 MG Injection cefTRIAXone (ROCEPHIN) i nfusion 1 g (premix) cefTRIAXone (ROCEPHIN) infusion 1 g (premix) 12/09/2020 09:00:00 AM EDT 1 g Intravenous aborted 1 g, Intraven ous, at 100 mL/hr, Daily Standard, First dose on Carol 12/09/20 at 0900, For 4 doses
Discouraged Uses: Empiric treatment of post-surgical meningitis (ceftazidime preferred)
[facility] Medication administered onsite Oxycodone Hydrochloride 5 [...] only) require Pain Service consultation and approval.
[facility] Medication administered onsite NaCl infusion 0.9 % [id number] 12/09/2020 07:45:00 AM EDT Intravenous aborted at 200 mL/hr, Intrav enous, Continuous, Starting on Carol 12/09/20 at 0745, For 12 hours [facility] Medication administered onsite pantoprazole 4 MG/ML Injectable Solution pantoprazole (PROTONIX) injection 80 mg pantoprazole (PROTONIX) injection 80 mg 12/08/2020 11:45:00 PM EDT 80 mg Intravenous completed 80 mg, Intrav enous, Once, On Sun12/08/20 at 2345, For 1 dose [facility] Medication administered onsite pantoprazole (PROTONIX) 0.4 mg/mL in sodium chloride 0.9 % 2 50 mL infusion 12/08/2020 11:45:00 PM EDT 8 mg/h Intravenous aborted 8 mg/hr (20 mL/hr), Intravenous, at 20 mL/hr, Continuous, Starting on Sun12/08/20 at 2345, For 30 days
Indication: Active GI bleed [facility] Medication administered onsite 1 ML Octreotide 0.05 MG/ML Prefilled Syr moreno octreotide (SANDOSTATIN) injection 50 mcg octreotide (SANDOSTATIN) injection 50 mcg 12/08/2020 11:45:00 PM EDT 50 ug Intravenous completed 50 mcg, Intravenous, Once, On Sun12/08/20 at 2345, For 1 dose [facility] Medication administered onsite octreotide (SANDOSTATIN) 5 mcg/mL in sodium chloride 0.9 % 2 50 mL infusion 12/08/2020 11:45:00 PM EDT 50 ug/h Intravenous aborted 50 mcg/hr (10 mL/hr), Intravenous, at 10 mL/hr, Continuous, Starting on Sun12/08/20 at 2345, For 30 days [facility] Medication administered onsite thiamine (B-1) 500 mg in sodium chloride 0.9 % 50 mL IVPB 12/08/2020 11:45:00 PM EDT 500 mg Intravenous active 500 mg, Intravenous, Administer over 30 Minutes, Daily Standard, First dose on Sun12/08/20 at 2345, For 30 days [facility] Medication administered onsite folic acid 1 mg in sodium chloride 0.9 % 50 mL IVPB 12/08/2020 11:45:00 PM EDT 1 mg Intravenous active 1 mg , Intravenous, Administer over 30 Minutes, Daily Standard, First dose on Sun12/08/20 at 2345, For 30 days [facility] Medication administered onsite NaCl infusion 0.9 % [id number] 12/08/2020 11:30:00 PM EDT Intravenous aborted at 200 mL/hr, Intrav enous, Continuous, Starting on Sun12/08/20 at 2330, For 12 hours [facility] Medication administered onsite 50 ML Magnesium [...] 16 mEq (2 g) q1h x 3
[facility] Medication administered onsite Folic Acid 1 MG Oral Tablet Folic Acid 1 MG Oral Table t (FOLVITE) Folic Acid 1 MG Oral Tablet (FOLVITE) 2020 12:00:00 AM EDT 1 mg Oral active Take 1 tablet by mouth daily [facility] Vitamin B 12 0.25 MG Oral Tablet Cyanocobalamin 250 MC G Oral Tablet Cyanocobalamin 250 MCG Oral Tablet 2020 12:00:00 AM EDT 250 ug Oral active Take 1 tablet by mouth daily [facility] pantoprazole 40 MG Delayed Release Oral Tablet Pantoprazole Sodium 40 MG Oral Tablet Delayed Release (Protonix) Pantoprazole Sodium 40 MG Oral Tablet De layed Release (Protonix) 11/17/2020 12:00:00 AM EDT 40 mg Oral active Take 1 tablet by mouth daily [facility] Clindamycin 300 MG Oral Capsule clindamy bharti HCl 300 mg capsule TAKE ONE CAPSULE BY MOUTH EVERY SIX HOURS UNTIL GONE clindamycin HCl 300 mg capsule TAKE ONE CAPSULE BY MOUTH EVERY SIX HOURS UNTIL GONE completed clindamycin 300 MG Oral Capsule SUKI ([facility]) duloxetine 60 MG Delayed Release Oral Ca psule duloxetine 60 mg capsule,delayed release TAKE ONE CAPSULE BY MOUTH ONCE DAILY duloxetine 60 mg capsule,delayed release TAKE ONE CAPSULE BY MOUTH ONCE DAILY completed duloxetine 60 MG Delayed Release Oral Capsule SUKI ([facility]) Lisinopril 30 MG Oral Tablet Lisinopril 30 MG Oral Tab let (ZESTRIL) Lisinopril 30 MG Oral Tablet (ZESTRIL) 30 mg Oral aborted Take 30 mg by mouth daily [facility] Insurance Providers Payer name Policy type / Coverage type Policy ID Covered constitution party ID Covered constitution party's relationship to see Policy See Plan Information Medicaid S [id number] S [id number] Medicaid S [id number] S [id number] [facility] COMMUNITY PLAN [facility] [id number] SP [id number] Managed Care - Community Plan [facility] P [id number] S [id number] Medicaid S [id number] S [id number] [facility] COMMUNITY PLAN [facility] [id number] SP [id number] Managed Care [facility] Community Plan P [id number] S [id number] [facility] [id number] SP [id number] Managed Care - Community Plan [facility] P [id number] S [id number] Managed Care - [facility] Community Plan P [id number] S [id number] [facility] I [id number] Self [id number] [facility] I [id number] Self [id number] [facility] I [id number] Self [id number] MEDICAID [id number] SP [id number] MEDICAID M [id number] S [id number] SELF PAY ONLY [id number] SP [id number] SELF PAY ONLY [id number] SP [id number] COMMUNITY PLAN [facility] [id number] SP [id number] Managed Care BCBS S [id number] S [id number] SELF PAY UNAVAILABLE SP [facility] PLAN [id number] SP [id number] HMO BLUE [id number] SP [id number] Managed Care [facility] O UNAVAILABLE S UNAVAILABLE [facility]) O [id number] S [id number] UN COMMUNITY PLAN [facility] [id number] SP [id number] ANSI-Medicaid [id number] ANSI-Medicaid [id number] ANSI-Medicaid [id number] [facility] [id number] [facility] Health Maintenance Organization ([facility]) [id number] Self [id number] Self Pay P None S None Managed Care Nadir P [id number] S [id number] [facility] Health Maintenance Organization (O) [id number] [facility] [id number] [facility] [id number] Problems, Conditions, and Diagnoses Code Display Name Description Problem Type Effective Dates Data Source(s) [id number] Fitting procedure Fitting Procedure Problem 03/04 06:13:25 PM EDT [facility]) Surgeries/Procedures Procedure Description Date Indications Data Source(s) BLOOD COUNT COMPLETE AUTOMATED <td>CBC</td><td>Timed</ td><td>12/12/2020 5:28 AM EDT</td><td></td><td> </td> 12/12/2020 05:28:00 AM [facility] PHOSPHORUS INORGANIC <td>PHOSPHORUS LEVEL</td><td >Routine</td><td>12/12/2020 5:28 AM EDT</td><td></td><td> </td> 12/12/2020 05:28:00 AM [facility] MAGNESIUM <td>MAGNESIUM LEVEL</td><td> Routine</td><td>12/12/2020 5:28 AM EDT</td><td></td><td> </td> 12/12/2020 05:28:00 AM [facility] BASIC METABOLIC PANEL CALCIUM TOTAL <td>BASIC METABOLI C PANEL</td><td>Routine</td><td>12/12/2020 5:28 AM EDT</td><td></td><td> </td> 12/12/2020 05:28:00 AM [facility] BLOOD COUNT COMPLETE AUTOMATED <td>CBC</td><td>Timed</ td><td>12/11/2020 3:52 PM EDT</td><td></td><td> </td> 12/11/2020 03:52:00 PM [facility] BLOOD COUNT COMPLETE AUTOMATED <td>CBC</td><td>Timed</ td><td>12/11/2020 6:09 AM EDT</td><td></td><td> </td> 12/11/2020 06:09:00 AM [facility] PHOSPHORUS INORGANIC <td>PHOSPHORUS LEVEL</td><td >Routine</td><td>12/11/2020 6:09 AM EDT</td><td></td><td> </td> 12/11/2020 06:09:00 AM [facility] MAGNESIUM <td>MAGNESIUM LEVEL</td><td> Routine</td><td>12/11/2020 6:09 AM EDT</td><td></td><td> </td> 12/11/2020 06:09:00 AM [facility] BASIC METABOLIC PANEL CALCIUM TOTAL <td>BASIC METABOLI C PANEL</td><td>Routine</td><td>12/11/2020 6:09 AM EDT</td><td></td><td> </td> 12/11/2020 06:09:00 AM [facility] BLOOD COUNT COMPLETE AUTOMATED <td>CBC</td><td>Timed</ td><td>12/10/2020 5:47 PM EDT</td><td></td><td> </td> 12/10/2020 05:47:00 PM [facility] BASIC METABOLIC PANEL CALCIUM TOTAL <td>BASIC METABOLI C PANEL</td><td>Routine</td><td>12/10/2020 1:07 PM EDT</td><td></td><td> </td> 12/10/2020 01:07:00 PM [facility] BLOOD COUNT COMPLETE AUTOMATED <td>CBC</td><td>Timed</ td><td>12/10/2020 10:13 AM EDT</td><td></td><td> </td> 12/10/2020 10:13:00 AM [facility] CALCIUM IONIZED <td>CALCIUM, IONIZED</td><td >Routine</td><td>12/10/2020 10:13 AM EDT</td><td></td><td> </td> 12/10/2020 10:13:00 AM [facility] PHOSPHORUS INORGANIC <td>PHOSPHORUS LEVEL</td><td >Routine</td><td>12/10/2020 5:09 AM EDT</td><td></td><td> </td> 12/10/2020 05:09:00 AM [facility] MAGNESIUM <td>MAGNESIUM LEVEL</td><td> Routine</td><td>12/10/2020 5:09 AM EDT</td><td></td><td> </td> 12/10/2020 05:09:00 AM [facility] COMPREHENSIVE METABOLIC PANEL <td>COMPREHENSIVE METABO LIC PANEL</td><td>Routine</td><td>12/10/2020 5:09 AM EDT</td><td></td><td> </td> 12/10/2020 05:09:00 AM [facility] BLOOD COUNT COMPLETE AUTOMATED <td>CBC</td><td>Timed</ td><td>12/10/2020 12:59 AM EDT</td><td></td><td> </td> 12/10/2020 12:59:00 AM [facility] Screening colonoscopy (procedure) <td>COLONOSCOPY</td> <td></td><td>12/10/2020 12:00 AM EDT</td><td></td><td></td> 12/10/2020 12:00:00 AM [facility] UPPER GI ENDOSCOPY; DX, W/WO SPECIMEN COLLECTION, BRUS RADHA/WASHING (SEP PROC) <td>UPPER GI ENDOSCOPY; DX, W/WO SPECIMEN COLLECTION, BRUSHING/WASHING (SEP PROC)</td><td></td><td>12/09/2020 5:00 PM EDT</td><td> Upper GI bleed</td><td></td> 12/09/2020 05:00:00 PM EDT - 12/09/2020 05:15:00 PM [facility] BLOOD COUNT COMPLETE AUTOMATED <td>CBC</td><td>Timed</ td><td>12/09/2020 4:06 PM EDT</td><td></td><td> </td> 12/09/2020 04:06:00 PM [facility] GLUCOSE QUANTITATIVE BLOOD XCPT REAGENT STRIP <td>POCT GLUCOSE, DOCKED</td><td>Routine</td><td>12/09/2020 12:35 PM EDT</td><td></td><td> </td> 12/09/2020 12:35:00 PM [facility] TRANSFUSE RBC (ONCE) <td>TRANSFUSE RBC (ONCE)</td ><td>STAT</td><td>12/09/2020 11:00 AM EDT</td><td></td><td></td> 12/09/2020 11:00:50 AM [facility] CALCIUM IONIZED <td>CALCIUM, IONIZED</td><td >Routine</td><td>12/09/2020 10:15 AM EDT</td><td></td><td> </td> 12/09/2020 10:15:00 AM [facility] ULTRASOUND ABDOMINAL REAL TIME W/IMAGE LIMITED <td>US ABDOMEN LIMITED [id number]</td><td>Routine</td><td>12/09/2020 10:10 AM EDT</td><td></td><td> </td> 12/09/2020 10:10:00 AM [facility] CULTURE BACTERIAL BLOOD AEROBIC W/ID ISOLATES <td>BLOO D CULTURE</td><td>Routine</td><td>12/09/2020 6:04 AM EDT</td><td></td><td></td> 12/09/2020 06:04:00 AM [facility] BLOOD COUNT COMPLETE AUTOMATED <td>CBC</td><td>Timed</ td><td>12/09/2020 6:04 AM EDT</td><td></td><td> </td> 12/09/2020 06:04:00 AM [facility] PHOSPHORUS INORGANIC <td>PHOSPHORUS LEVEL</td><td >Routine</td><td>12/09/2020 6:04 AM EDT</td><td></td><td> </td> 12/09/2020 06:04:00 AM [facility] MAGNESIUM <td>MAGNESIUM LEVEL</td><td> Routine</td><td>12/09/2020 6:04 AM EDT</td><td></td><td> </td> 12/09/2020 06:04:00 AM [facility] COMPREHENSIVE METABOLIC PANEL <td>COMPREHENSIVE METABO LIC PANEL</td><td>Routine</td><td>12/09/2020 6:04 AM EDT</td><td></td><td> </td> 12/09/2020 06:04:00 AM [facility] TRANSFUSE RBC (ONCE) <td>TRANSFUSE RBC (ONCE)</td ><td>STAT</td><td>12/09/2020 5:45 AM EDT</td><td></td><td></td> 12/09/2020 05:45:38 AM [facility] URNLS DIP STICK/TABLET REAGENT AUTO MICROSCOPY <td>URI NALYSIS WITH REFLEX URINE CULTURE</td><td>STAT</td><td>12/09/2020 2:02 AM EDT</td><td></td><td> </td> 12/09/2020 02:02:00 AM [facility] CULTURE BACTERIAL BLOOD AEROBIC W/ID ISOLATES <td>BLOO D CULTURE</td><td>Routine</td><td>12/09/2020 12:07 AM EDT</td><td></td><td></td> 12/09/2020 12:07:00 AM [facility] UPPER GI ENDOSCOPY <td>UPPER GI ENDOSCOPY</td>< td></td><td>12/09/2020 12:00 AM EDT</td><td></td><td></td> 12/09/2020 12:00:00 AM EDT [facility] COVID-19 PCR <td>COVID-19 PCR</td><td>Rou jason</td><td>12/08/2020 11:59 PM EDT</td><td></td><td> </td> 12/08/2020 11:59:00 PM [facility] THROMBOPLASTIN TIME PARTIAL PLASMA/WHOLE BLOOD <td>PAR TIAL THROMBOPLASTIN TIME (PTT)</td><td>STAT</td><td>12/08/2020 11:59 PM EDT</td><td></td><td> </td> 12/08/2020 11:59:00 PM [facility] PROTHROMBIN TIME <td>PROTIME INR</td><td>STAT </td><td>12/08/2020 11:59 PM EDT</td><td></td><td> </td> 12/08/2020 11:59:00 PM [facility] BLOOD COUNT COMPLETE AUTOMATED <td>CBC</td><td>Timed</ td><td>12/08/2020 11:59 PM EDT</td><td></td><td> </td> 12/08/2020 11:59:00 PM [facility] BLOOD TYPING ABO <td>TYPE AND SCREEN</td><td> STAT</td><td>12/08/2020 11:59 PM EDT</td><td></td><td> </td> 12/08/2020 11:59:00 PM [facility] LIPASE <td>LIPASE LEVEL</td><td>STA T</td><td>12/08/2020 11:59 PM EDT</td><td></td><td> </td> 12/08/2020 11:59:00 PM [facility] COMPREHENSIVE METABOLIC PANEL <td>COMPREHENSIVE METABO LIC PANEL</td><td>Routine</td><td>12/08/2020 11:59 PM EDT</td><td></td><td> </td> 12/08/2020 11:59:00 PM [facility] Results ID Date Data Source [id number] 12/12/2020 05:24:26 PM [facility] Name Value Range Interpretation Code Description Data Lou rce(s) Supporting Document(s) Discharge Summary [facility] [id number]TH0DZvFAzAmFvKqUgD2 lbm [file] Maria Guadalupe/pdwpkoY0MI83r0fdrBxUtdTyy9AfPBFR6vo/iG [file] [id number]JUxAyVF3KNHy= ID Date Data Source [id number] 12/12/2020 06:08:11 AM EDT [facility] Name Value Range Interpretation Code Description Data Lou rce(s) Supporting Document(s) Leukocytes [#/volume] in Blood by Automated count 5.5 10*3/uL 4-10 [facility] Erythrocytes [#/volume] in Blood by Automated count 2.87 10*6/uL 4.6- 6.1 L [facility] Hemoglobin [Mass/volume] in Blood 7.8 g/dL 13.5-18 L [facility] Hematocrit [Volume Fraction] of Blood by Automated count 24.3 % 4 1-53 L [facility] Erythrocyte mean corpuscular volume [Entitic volume] by Auto mated count 84.8 fL 80-96 [facility] Erythrocyte mean corpuscular hemoglobin [Entitic mass] by Automated count 27.3 pg 27-33 [facility] Erythrocyte mean corpuscular hemoglobin concentration [Mass/volume] by Automated count 32.2 g/[facility].0-[facility] Erythrocyte distribution width [Ratio] by Automated count 17.3 % 11.5-14.5 H [facility] Platelets [#/volume] in Blood by Automated count 112 10*3/uL 150-400 L [facility] ID Date Data Source [id number] 12/12[facility]2020 [facility]:27:[facility] Name Value Range Interpretation Code Description Data Lou rce(s) Supporting Document(s) Bicarbonate [Moles/volume] in Serum 23 mmol/L 22-29 [facility] Chloride [Moles/volume] in Serum or Plasma 102 mmol/L 98-107 [facility] Creatinine [Mass/volume] in Serum or Plasma 0.55 mg/dL 0.70-1.20 L [facility] Glucose [Mass/volume] in Serum or Plasma 102 mg/dL 70-140 [facility] Potassium [Moles/volume] in Serum or Plasma 3.5 mmol/L 3.4-5.1 [facility] Sodium [Moles/volume] in Serum or Plasma 133 mmol/L 136-145 L [facility] Urea nitrogen [Mass/volume] in Serum or Plasma 5 mg/dL 6-20 L [facility] Anion gap 3 in Serum or Plasma 9 mmol/L 8-15 [facility] Osmolality of Serum or Plasma by calculation 274 mosm/kg 275-300 L [facility] Creatinine/Urea nitrogen [Mass Ratio] in Serum or Plasma 9 [facility] Calcium [Mass/volume] in Serum or Plasma 8.0 mg/dL 8.6-10.0 [facility] Glomerular filtration rate/1.73 sq M pre dicted among non-blacks [Volume Rate/Area] in Serum or Plasma by Creatinine-based formula (MDRD) >6 0 [facility] Glomerular filtration rate/1.73 sq M pre dicted among blacks [Volume Rate/Area] in Serum or Plasma by Creatinine-based formula (MDRD) >60 [facility] ID Date Data Source [id number] 12/12[facility]2020 [facility]27:[facility] Name Value Range Interpretation Code Description Data Lou rce(s) Supporting Document(s) Phosphate [Mass/volume] in Serum or Plasma 3.1 mg/dL 2.5-4.5 [facility] ID Date Data Source [id number] 12/12/2020 06:27:20 AM EDT [facility] Value Range Interpretation Code Description Data Lou rce(s) Supporting Document(s) Magnesium [Mass/volume] in Serum or Plasma 2.0 mg/dL 1.6-2.6 [facility] ID Date Data Source [id number] 12/11/2020 04:51:04 PM EDT [facility] Value Range Interpretation Code Description Data Lou rce(s) Supporting Document(s) Leukocytes [#/volume] in Blood by Automated count 5.3 10*3/uL 4-10 [facility] Erythrocytes [#/volume] in Blood by Automated count 2.88 10*6/uL 4.6- 6.1 L [facility] Hemoglobin [Mass/volume] in Blood 8.2 g/dL 13.5-18 L [facility] Hematocrit [Volume Fraction] of Blood by Automated count 24.5 % 4 1-53 L [facility] Erythrocyte mean corpuscular volume [Entitic volume] by Auto mated count 84.9 fL 80-96 [facility] Erythrocyte mean corpuscular hemoglobin [Entitic mass] by Automated count 28.5 pg 27-33 [facility] Erythrocyte mean corpuscular hemoglobin concentration [Mass/volume] by Automated count 33.5 g/dL 32.0-36.0 [facility] Erythrocyte distribution width [Ratio] by Automated count 16.9 % 11.5-14.5 H [facility] Platelets [#/volume] in Blood by Automated count 105 10*3/uL 150-400 [facility] ID Date Data Source [id number] 12/11/2020 03:28:44 PM EDT [facility] Name Value Range Interpretation Code Description Data Lou rce(s) Supporting Document(s) [facility] [id number]GF2iN0cASC4XSjTFxZzDbImQeR1 lbm [file] [id number] ID Date Data Source [id number] 12/11/2020 06:57:52 AM [facility] Name Value Range Interpretation Code Description Data Lou rce(s) Supporting Document(s) Leukocytes [#/volume] in Blood by Automated count 4.6 10*3/uL 4-10 [facility] Erythrocytes [#/volume] in Blood by Automated count 2.74 10*6/uL 4.6- 6.1 L [facility] Hemoglobin [Mass/volume] in Blood 7.7 g/dL 13.5-18 L [facility] Hematocrit [Volume Fraction] of Blood by Automated count 23.0 % 4 1-53 L [facility] Erythrocyte mean corpuscular volume [Entitic volume] by Auto mated count 84.2 fL 80-96 [facility] Erythrocyte mean corpuscular hemoglobin [Entitic mass] by Automated count 28.1 pg 27-33 [facility] Erythrocyte mean corpuscular hemoglobin concentration [Mass/volume] by Automated count 33.3 g/dL 32.0-36.0 [facility] Erythrocyte distribution width [Ratio] by Automated count 17.0 % 11.5-14.5 H [facility] Platelets [#/volume] in Blood by Automated count 105 10*3/uL 150-400 L [facility] ID Date Data Source [id number] 12/11/2020 08:31:44 AM [facility] Value Range Interpretation Code Description Data Lou rce(s) Supporting Document(s) Magnesium [Mass/volume] in Serum or Plasma 2.1 mg/dL 1.6-2.6 [facility] ID Date Data Source [id number] 12/11/2020 08:31:44 AM [facility] Value Range Interpretation Code Description Data Lou rce(s) Supporting Document(s) Bicarbonate [Moles/volume] in Serum 22 mmol/L 22-29 [facility] Chloride [Moles/volume] in Serum or Plasma 101 mmol/L 98-107 [facility] Creatinine [Mass/volume] in Serum or Plasma 0.52 mg/dL 0.70-1.20 L [facility] Glucose [Mass/volume] in Serum or Plasma 91 mg/dL 70-140 [facility] Potassium [Moles/volume] in Serum or Plasma 3.5 mmol/L 3.4-5.1 [facility] Sodium [Moles/volume] in Serum or Plasma 133 mmol/L 136-145 L [facility] Urea nitrogen [Mass/volume] in Serum or Plasma 6 mg/dL 6-20 [facility] Anion gap 3 in Serum or Plasma 10 mmol/L 8-15 [facility] Osmolality of Serum or Plasma by calculation 273 mosm/kg 275-300 L [facility] Creatinine/Urea nitrogen [Mass Ratio] in Serum or Plasma 12 [facility] Calcium [Mass/volume] in Serum or Plasma 7.6 mg/dL 8.6-10.0 L [facility] Glomerular filtration rate/1.73 sq M pre dicted among non-blacks [Volume Rate/Area] in Serum or Plasma by Creatinine-based formula (MDRD) >6 0 [facility] Glomerular filtration rate/1.73 sq M pre dicted among blacks [Volume Rate/Area] in Serum or Plasma by Creatinine-based formula (MDRD) >60 [facility] ID Date Data Source [id number] 12/11/2020 08:31:44 AM [facility] Name Value Range Interpretation Code Description Data Lou rce(s) Supporting Document(s) Phosphate [Mass/volume] in Serum or Plasma 3.0 mg/dL 2.5-4.5 [facility] ID Date Data Source [id number] 12/10/2020 05:53:09 PM [facility] Name Value Range Interpretation Code Description Data Lou rce(s) Supporting Document(s) History [facility] [id number] [facility] [file] [id number] ID Date Data Source [id number] 12/10/2020 05:53:04 PM EDT [facility] Name Value Range Interpretation Code Description Data Lou rce(s) Supporting Document(s) History and [facility] [id number]/JVZcqDHKej6XyOOfnXSg4MYuzTHEyI6ZiJKI7qL4bUUQ2JMbDHsWxOpTeRmVj lbm [file] YToYNUVXFgs1JnrFQXmaE/RfFLM9Zhp+pastry cook+8Gm38sRB/rfnh+MD/JCq1PmLqMiuc/T18NS53h+3pTrbs 8P/zBDdxIoCvaJHv8dR5QLA7MYQmKHsmpARgqqs1sB59fGG8/Rw4AHm6oZsxzJX5onMLEkKLavmibnW9 x8Z/6IKIGArfQBRuRhFVhgXSZhi1sOwFbt0G7oHcxk Q54fguwoCN4f+bm6WxgfRqZHvEkVR0gvOq5vH4gPRTLTyaHhX6yj2YxBHl5rVve6P/jzw85cVGoOOVdP RfSHErqGIrQ7kWC8G9IJqkV7JGHYeIzHWiaE8v3Y2bn3dzGqpnzYyS1b2BWp21lWM2vA2SPZjFB1NlBk KEYZ0QE8nVVDrDleXY0JZlpZSoPEkkpEgk+Lt4uPu4 Hafg5Mkb09+JpK2t4LyskUcFG2Yu+Kf8zDNwG3iox2168Altk129/lY25cUU2zh9ml8UoPSkrWi+tgYI OczoNJo5B+Vlr3UntBkQktJ/SSo4V5goAz7lgAPMmXYgjyMthqe5aO3rze+rc/W1bg/+W5Zxh8AOZq2l +6cUTR8j9Y385fZRLz60p32H8p/aCX3+sO9x/Q9lC4 [file] [id number]= ID Date Data Source [id number] 12/10/2020 05:52:44 PM EDT [facility] Name Value Range Interpretation Code Description Data Lou rce(s) Supporting Document(s) Consultation [facility] [id number]/[id number]yIJJ0fK7vRGL1WAwEKxZxRxQuNwVr lbm [file] [id number] ID Date Data Source [id number] 12/10/2020 06:22:48 PM EDT [facility] Name Value Range Interpretation Code Description Data Lou rce(s) Supporting Document(s) Leukocytes [#/volume] in Blood by Automated count 8.4 10*3/uL 4-10 [facility] Erythrocytes [#/volume] in Blood by Automated count 3.48 10*6/uL 4.6- 6.1 L [facility] Hemoglobin [Mass/volume] in Blood 9.7 g/dL 13.5-18 L [facility] Hematocrit [Volume Fraction] of Blood by Automated count 29.9 % 4 1-53 L [facility] Erythrocyte mean corpuscular volume [Entitic volume] by Auto mated count 85.9 fL 80-96 [facility] Erythrocyte mean corpuscular hemoglobin [Entitic mass] by Automated count 27.9 pg 27-33 [facility] Erythrocyte mean corpuscular hemoglobin concentration [Mass/volume] by Automated count 32.5 g/dL 32.0-36.0 [facility] Erythrocyte distribution width [Ratio] by Automated count 17.3 % 11.5-14.5 H [facility] Platelets [#/volume] in Blood by Automated count 127 10*3/uL 150-400 L [facility] ID Date Data Source [id number] 12/10/2020 01:48:[facility] Name Value Range Interpretation Code Description Data Lou rce(s) Supporting Document(s) Bicarbonate [Moles/volume] in Serum 22 mmol/L 22-29 [facility] Chloride [Moles/volume] in Serum or Plasma 102 mmol/L 98-107 [facility] Creatinine [Mass/volume] in Serum or Plasma 0.54 mg/dL 0.70-1.20 [facility] Glucose [Mass/volume] in Serum or Plasma 84 mg/dL 70-140 [facility] Potassium [Moles/volume] in Serum or Plasma 3.9 mmol/L 3.4-5.1 [facility] Sodium [Moles/volume] in Serum or Plasma 132 mmol/L 136-145 L [facility] Urea nitrogen [Mass/volume] in Serum or Plasma 7 mg/dL 6-20 [facility] Anion gap 3 in Serum or Plasma 8 mmol/L 8-15 [facility] Osmolality of Serum or Plasma by calculation 271 mosm/kg 275-300 L [facility] Creatinine/Urea nitrogen [Mass Ratio] in Serum or Plasma 13 [facility] Calcium [Mass/volume] in Serum or Plasma 7.9 mg/dL 8.6-10.0 L [facility] Glomerular filtration rate/1.73 sq M pre dicted among non-blacks [Volume Rate/Area] in Serum or Plasma by Creatinine-based formula (MDRD) >6 0 [facility] Glomerular filtration rate/1.73 sq M pre dicted among blacks [Volume Rate/Area] in Serum or Plasma by Creatinine-based formula (MDRD) >60 [facility] ID Date Data Source [id number] 12/10/2020 10:56:25 AM [facility] Name Value Range Interpretation Code Description Data Lou rce(s) Supporting Document(s) Calcium.ionized [Moles/volume] in Arterial blood 1.08 mmol/L 1.13-1.3 2 [facility] ID Date Data Source [id number] 12/10/2020 10:55:28 AM [facility] Name Value Range Interpretation Code Description Data Lou rce(s) Supporting Document(s) Leukocytes [#/volume] in Blood by Automated count 6.5 10*3/uL 4-10 [facility] Erythrocytes [#/volume] in Blood by Automated count 3.30 10*6/uL 4.6- 6.1 L [facility] Hemoglobin [Mass/volume] in Blood 9.2 g/dL 13.5-18 L [facility] Hematocrit [Volume Fraction] of Blood by Automated count 28.1 % 4 1-53 L [facility] Erythrocyte mean corpuscular volume [Entitic volume] by Auto mated count 85.3 fL 80-96 [facility] Erythrocyte mean corpuscular hemoglobin [Entitic mass] by Automated count 27.8 pg 27-33 [facility] Erythrocyte mean corpuscular hemoglobin concentration [Mass/volume] by Automated count 32.7 g/dL 32.0-36.0 [facility] Erythrocyte distribution width [Ratio] by Automated count 17.3 % 11.5-14.5 H [facility] Platelets [#/volume] in Blood by Automated count 110 10*3/uL 150-400 L [facility] ID Date Data Source [id number] 12/10/2020 06:01:23 AM [facility] Name Value Range Interpretation Code Description Data Lou rce(s) Supporting Document(s) Magnesium [Mass/volume] in Serum or Plasma 2.2 mg/dL 1.6-2.6 [facility] ID Date Data Source [id number] 12/10/2020 06:01:23 AM [facility] Name Value Range Interpretation Code Description Data Lou rce(s) Supporting Document(s) Phosphate [Mass/volume] in Serum or Plasma 3.1 mg/dL 2.5-4.5 [facility] ID Date Data Source [id number] 12/10/2020 06:01:23 AM [facility] Name Value Range Interpretation Code Description Data Lou rce(s) Supporting Document(s) Albumin [Mass/volume] in Serum or Plasma by Bromocresol green (BCG) dye binding method 2.3 g/dL 3.5-5.2 L [facility] Bilirubin.total [Mass/volume] in Serum or Plasma 1.2 mg/dL <1.2 H [facility] Calcium [Mass/volume] in Serum or Plasma 7.5 mg/dL 8.6-10.0 L [facility] Chloride [Moles/volume] in Serum or Plasma 102 mmol/L 98-107 [facility] Creatinine [Mass/volume] in Serum or Plasma 0.57 mg/dL 0.70-1.20 L [facility] Glucose [Mass/volume] in Serum or Plasma 88 mg/dL 70-140 [facility] Alkaline phosphatase [Enzymatic activity/volume] in Serum or Plasma 104 U/L 40-129 [facility] Potassium [Moles/volume] in Serum or Plasma 3.8 mmol/L 3.4-5.1 [facility] Protein [Mass/volume] in Serum or Plasma 4.7 g/dL 6.4-8.3 L [facility] Sodium [Moles/volume] in Serum or Plasma 129 mmol/L 136-145 L [facility] Aspartate aminotransferase [Enzymatic activity/volume] in Serum or Plasma 145 U/L <40 H [facility] Urea nitrogen [Mass/volume] in Serum or Plasma 8 mg/dL 6-20 [facility] Osmolality of Serum or Plasma by calculation 265 mosm/kg 275-300 L [facility] Creatinine/Urea nitrogen [Mass Ratio] in Serum or Plasma 14 [facility] Bicarbonate [Moles/volume] in Serum 20 mmol/L 22-29 L [facility] Alanine aminotransferase [Enzymatic activity/volume] in Seru m or Plasma 54 U/L <41 H [facility] Anion gap 3 in Serum or Plasma 6 mmol/L 8-15 L [facility] Glomerular filtration rate/1.73 sq M pre dicted among non-blacks [Volume Rate/Area] in Serum or Plasma by Creatinine-based formula (MDRD) >6 0 [facility] Glomerular filtration rate/1.73 sq M pre dicted among blacks [Volume Rate/Area] in Serum or Plasma by Creatinine-based formula (MDRD) >60 [facility] ID Date Data Source [id number] 12/10/2020 01:34:51 AM EDT [facility] Name Value Range Interpretation Code Description Data Lou rce(s) Supporting Document(s) Leukocytes [#/volume] in Blood by Automated count 7.5 10*3/uL 4-10 [facility] Erythrocytes [#/volume] in Blood by Automated count 2.95 10*6/uL 4.6- 6.1 L [facility] Hemoglobin [Mass/volume] in Blood 8.1 g/dL 13.5-18 L [facility] Hematocrit [Volume Fraction] of Blood by Automated count 25.3 % 4 1-53 L [facility] Erythrocyte mean corpuscular volume [Entitic volume] by Auto mated count 85.9 fL 80-96 [facility] Erythrocyte mean corpuscular hemoglobin [Entitic mass] by Automated count 27.5 pg 27-33 [facility] Erythrocyte mean corpuscular hemoglobin concentration [Mass/volume] by Automated count 32.1 g/dL 32.0-36.0 [facility] Erythrocyte distribution width [Ratio] by Automated count 17.2 % 11.5-14.5 H [facility] Platelets [#/volume] in Blood by Automated count 105 10*3/uL 150-400 L [facility] ID Date Data Source [id number] 12/09/2020 06:15:27 PM EDT [facility] Name Value Range Interpretation Code Description Data Lou rce(s) Supporting Document(s) Consultation [facility] [id number]T3mN2mZGT3MFkSPwSyAnJvUzSc lbm [file] [id number]+IK1xCMd+Gz3Qb2QvrnT9muIjFIadVMq0Se0VSNBVQ7UKCh== ID Date Data Source [id number] 12/09/2020 05:06:16 PM [facility] Name Value Range Interpretation Code Description Data [facility]) Supporting Document(s) Leukocytes [#/volume] in Blood by Automated count 6.0 10*3/uL 4-10 [facility] Erythrocytes [#/volume] in Blood by Automated count 3.13 10*6/uL 4.6- 6.1 L [facility] Hemoglobin [Mass/volume] in Blood 8.7 g/dL 13.5-18 L [facility] Hematocrit [Volume Fraction] of Blood by Automated count 26.6 % 4 1-53 L [facility] Erythrocyte mean corpuscular volume [Entitic volume] by Auto mated count 84.9 fL 80-96 [facility] Erythrocyte mean corpuscular hemoglobin [Entitic mass] by Automated count 27.9 pg 27-33 [facility] Erythrocyte mean corpuscular hemoglobin concentration [Mass/volume] by Automated count 32.9 g/dL 32.0-36.0 [facility] Erythrocyte distribution width [Ratio] by Automated count 17.1 % 11.5-14.5 H [facility] Platelets [#/volume] in Blood by Automated count 100 10*3/uL 150-400 L [facility] ID Date Data Source [id number] 12/09/2020 12:45:01 PM EDT [facility] Name Value Range Interpretation Code Description Data Lou rce(s) Supporting Document(s) Glucose [Mass/volume] in Capillary blood by Glucometer 94 mg/dL 70- 140 [facility] ID Date Data Source [id number] 12/09/2020 11:21:01 AM [facility] US ABDOMEN LIMITED [id number] RESULTInte rpreted by:Jessica Lr DOStudy: ULTRASOUND ABDOMEN [...] rce(s) Supporting Document(s) ID Date Data Source [id number] 12/09/2020 11:01:04 AM [facility] Name Value Range Interpretation Code Description Data Lou rce(s) Supporting Document(s) Calcium.ionized [Moles/volume] in Arterial blood 1.13 mmol/L 1.13-1.3 2 [facility] ID Date Data Source [id number] 12/14/2020 10:43:44 AM [facility] Service Cmnt XXX-Imp : R ARMMicroorganis m XXX Cult : No growth 5 days Name Value Range Interpretation Code Description Data Lou rce(s) Supporting Document(s) ID Date Data Source [id number] 12/09/2020 06:24:47 AM [facility] Name Value Range Interpretation Code Description Data Lou rce(s) Supporting Document(s) Leukocytes [#/volume] in Blood by Automated count 6.9 10*3/uL 4-10 [facility] Erythrocytes [#/volume] in Blood by Automated count 2.54 10*6/uL 4.6- 6.1 L [facility] Hemoglobin [Mass/volume] in Blood 7.0 g/dL 13.5-18 L [facility] Hematocrit [Volume Fraction] of Blood by Automated count 21.3 % 4 1-53 L [facility] Erythrocyte mean corpuscular volume [Entitic volume] by Auto mated count 83.7 fL 80-96 [facility] Erythrocyte mean corpuscular hemoglobin [Entitic mass] by Automated count 27.4 pg 27-33 [facility] Erythrocyte mean corpuscular hemoglobin concentration [Mass/volume] by Automated count 32.7 g/dL 32.0-36.0 [facility] Erythrocyte distribution width [Ratio] by Automated count 17.1 % 11.5-14.5 H [facility] Platelets [#/volume] in Blood by Automated count 107 10*3/uL 150-400 L [facility] ID Date Data Source [id number] 12/09/2020 06:41:24 AM [facility] Name Value Range Interpretation Code Description Data Lou rce(s) Supporting Document(s) Albumin [Mass/volume] in Serum or Plasma by Bromocresol green (BCG) dye binding method 2.1 g/dL 3.5-5.2 [facility] Bilirubin.total [Mass/volume] in Serum or Plasma 1.1 mg/dL <1.2 [facility] Calcium [Mass/volume] in Serum or Plasma 7.2 mg/dL 8.6-10.0 L [facility] Chloride [Moles/volume] in Serum or Plasma 106 mmol/L 98-107 [facility] Creatinine [Mass/volume] in Serum or Plasma 0.47 mg/dL 0.70-1.20 L [facility] Glucose [Mass/volume] in Serum or Plasma 81 mg/dL 70-140 [facility] Alkaline phosphatase [Enzymatic activity/volume] in Serum or Plasma 104 U/L 40-129 [facility] Potassium [Moles/volume] in Serum or Plasma 4.0 mmol/L 3.4-5.1 [facility] Protein [Mass/volume] in Serum or Plasma 4.3 g/dL 6.4-8.3 [facility] Sodium [Moles/volume] in Serum or Plasma 131 mmol/L 136-145 [facility] Aspartate aminotransferase [Enzymatic activity/volume] in Serum or Plasma 52 U/L <40 H [facility] Urea nitrogen [Mass/volume] in Serum or Plasma 14 mg/dL 6-20 [facility] Osmolality of Serum or Plasma by calculation 272 mosm/kg 275-300 [facility] Creatinine/Urea nitrogen [Mass Ratio] in Serum or Plasma 29 [facility] Bicarbonate [Moles/volume] in Serum 19 mmol/L 22-29 L [facility] Alanine aminotransferase [Enzymatic activity/volume] in Seru m or Plasma 19 U/L <41 [facility] Anion gap 3 in Serum or Plasma 6 mmol/L 8-15 L [facility] Glomerular filtration rate/1.73 sq M pre dicted among non-blacks [Volume Rate/Area] in Serum or Plasma by Creatinine-based formula (MDRD) >6 0 [facility] Glomerular filtration rate/1.73 sq M pre dicted among blacks [Volume Rate/Area] in Serum or Plasma by Creatinine-based formula (MDRD) >60 [facility] ID Date Data Source [id number] 12/09[facility]2020 [facility]48[facility] Name Value Range Interpretation Code Description Data Lou rce(s) Supporting Document(s) Magnesium [Mass/volume] in Serum or Plasma 1.7 mg/dL 1.6-2.6 [facility] ID Date Data Source [id number] 12/09/2020 09:48:45 AM [facility] Value Range Interpretation Code Description Data Lou rce(s) Supporting Document(s) Phosphate [Mass/volume] in Serum or Plasma 2.3 mg/dL 2.5-4.5 L [facility] ID Date Data Source [id number] 12/09/2020 02:18:20 AM [facility] Name Value Range Interpretation Code Description Data Lou rce(s) Supporting Document(s) Color of Urine [facility] Clarity of Urine [facility] Specific gravity of Urine by Refractometry automated 1.010 1.003 -1.030 [facility] pH of Urine by Automated test strip 7.0 5.0-8.0 [facility] Protein [Mass/volume] in Urine by Automated test strip Neg [facility] Glucose [Mass/volume] in Urine by Automated test strip Neg [facility] Ketones [Mass/volume] in Urine by Automated test strip Neg [facility] Bilirubin.total [Presence] in Urine by Automated test strip Negative [facility] Hemoglobin [Presence] in Urine by Automated test strip Neg [facility] Leukocyte esterase [Presence] in Urine by Automated test strip Negative [facility] Nitrite [Presence] in Urine by Automated test strip Negati [facility] Leukocytes [#/area] in Urine sediment by Automated count 0 /HPF 0 -5 [facility] Erythrocytes [#/area] in Urine sediment by Automated count 0 /HPF 0-3 [facility] Service comment [facility] ID Date Data Source [id number] 12/14/2020 10:43:44 AM [facility] Service Cmnt XXX-Imp : L ARMMicroorganis m XXX Cult : No growth 5 days Name Value Range Interpretation Code Description Data Lou rce(s) Supporting Document(s) ID Date Data Source [id number] 12/11/2020 07:07:34 AM [facility] Name Value Range Interpretation Code Description Data Lou rce(s) Supporting Document(s) ABO and Rh group [Type] in Blood [facility] Blood group antibody screen [Presence] in Serum or Plasma [facility] Performed at [facility], Raquel Stark korinMonicaGeeta, [id number] ID Date Data Source [id number] 12/08/2020 11:59:00 PM EDT [facility] Name Value Range Interpretation Code Description Data Lou rce(s) Supporting Document(s) SARS-CoV-2 RNA 2019 nCoV Real-Time RT-PCR: NOT DETECTED [facility] This lab was ordered by [facility] and reported by [facility]. ID Date Data Source [id number] 12/09/2020 09:30:29 AM EDT [facility] Name Value Range Interpretation Code Description Data Lou rce(s) Supporting Document(s) Specimen source [Identifier] of Unspecified specimen [facility] SARS-CoV-2 RNA 2019 nCoV Real-Time RT-PCR: NOT DETECTED [facility] Assay Performed [facility] Patients first test for [facility] Patient employed in healthcare setting [facility] Patient has symptoms related to [facility] When did you start to experience these symptoms [Date and time] [Phen X] [facility] Patient was hospitalized because of this [facility] patient was admitted to ICU for [facility] Patient resides in a congregate care setting [facility] status [facility] ID Date Data Source [id number] 12/09/2020 12:23:05 AM EDT [facility] Name Value Range Interpretation Code Description Data Lou rce(s) Supporting Document(s) Leukocytes [#/volume] in Blood by Automated count 11.0 10*3/uL 4-10 H [facility] Erythrocytes [#/volume] in Blood by Automated count 2.48 10*6/uL 4.6- 6.1 L [facility] Hemoglobin [Mass/volume] in Blood 6.6 g/dL 13.5-18 L [facility] Hematocrit [Volume Fraction] of Blood by Automated count 20.1 % 4 1-53 LL [facility] Called to and read back by fito starr rn 6i [id number] at 0022 by 1522 Erythrocyte mean corpuscular volume [Entitic volume] by Auto mated count 81.1 fL 80-96 [facility] Erythrocyte mean corpuscular hemoglobin [Entitic mass] by Automated count 26.6 pg 27-33 L [facility] Erythrocyte mean corpuscular hemoglobin concentration [Mass/volume] by Automated count 32.7 g/dL 32.0-36.0 [facility] Erythrocyte distribution width [Ratio] by Automated count 16.2 % 11.5-14.5 H [facility] Platelets [#/volume] in Blood by Automated count 131 10*3/uL 150-400 L [facility] ID Date Data Source [id number] 12/09/2020 12:31:19 AM [facility] Value Range Interpretation Code Description Data Lou rce(s) Supporting Document(s) aPTT in Platelet poor plasma by Coagulation assay 31.0 s 24.0-33. 0 [facility] ID Date Data Source [id number] 12/09/2020 12:31:19 AM [facility] Value Range Interpretation Code Description Data Lou rce(s) Supporting Document(s) Prothrombin time (PT) 16.9 s 11.6-14.0 H [facility] INR in Platelet poor plasma by Coagulation assay 1.44 [facility] Routine intensity oral anticoagulation I NR is typically 2.0-3.0. Target INR must be clinically individualized. ID Date Data Source [id number] 12/09/2020 12:52:30 AM [facility] Value Range Interpretation Code Description Data Lou rce(s) Supporting Document(s) Lipase [Enzymatic activity/volume] in Serum or Plasma 226 U/L 13-6 0 H [facility] ID Date Data Source [id number] 12/09/2020 12:52:30 AM [facility] Value Range Interpretation Code Description Data Lou rce(s) Supporting Document(s) Albumin [Mass/volume] in Serum or Plasma by Bromocresol green (BCG) dye binding method 2.4 g/dL 3.5-5.2 L [facility] Bilirubin.total [Mass/volume] in Serum or Plasma 1.0 mg/dL <1.2 [facility] Calcium [Mass/volume] in Serum or Plasma 7.9 mg/dL 8.6-10.0 [facility] Chloride [Moles/volume] in Serum or Plasma 97 mmol/L 98-107 L [facility] Creatinine [Mass/volume] in Serum or Plasma 0.49 mg/dL 0.70-1.20 L [facility] Glucose [Mass/volume] in Serum or Plasma 92 mg/dL 70-140 [facility] Alkaline phosphatase [Enzymatic activity/volume] in Serum or Plasma 121 U/L 40-129 [facility] Potassium [Moles/volume] in Serum or Plasma 3.9 mmol/L 3.4-5.1 [facility] Protein [Mass/volume] in Serum or Plasma 4.8 g/dL 6.4-8.3 L [facility] Sodium [Moles/volume] in Serum or Plasma 125 mmol/L 136-145 L [facility] Aspartate aminotransferase [Enzymatic activity/volume] in Serum or Plasma 52 U/L <40 H [facility] Urea nitrogen [Mass/volume] in Serum or Plasma 17 mg/dL 6-20 [facility] Osmolality of Serum or Plasma by calculation 261 mosm/kg 275-300 L [facility] Creatinine/Urea nitrogen [Mass Ratio] in Serum or Plasma 35 [facility] Bicarbonate [Moles/volume] in Serum 22 mmol/L 22-29 [facility] Alanine aminotransferase [Enzymatic activity/volume] in Seru m or Plasma 21 U/L <41 [facility] Anion gap 3 in Serum or Plasma 6 mmol/L 8-15 L [facility] Glomerular filtration rate/1.73 sq M pre dicted among non-blacks [Volume Rate/Area] in Serum or Plasma by Creatinine-based formula (MDRD) >6 0 [facility] Glomerular filtration rate/1.73 sq M pre dicted among blacks [Volume Rate/Area] in Serum or Plasma by Creatinine-based formula (MDRD) >60 [facility] ID Date Data Source [id number] 12/08/2020 06:44:00 PM EDT [facility] Name Value Range Interpretation Code Description Data Lou rce(s) Supporting Document(s) SARS coronavirus 2 RNA [Presence] in Res piratory specimen by TOYA with probe detection NEGATIVE [facility] This lab was ordered by [facility] a nd reported by [facility]. ID Date Data Source [id number] 11/26/2020 08:42:12 AM EDT [facility] Name Value Range Interpretation Code Description Data Lou rce(s) Supporting Document(s) ED Provider Note [facility] SZHCLl3qUfIXKnDu29/WOHptJTRpe6RqNWnjCUa6DJauPKTaC9CgJJO5hO9hADE4GOsYHqHiRfEpJtY9 lbm [file] AwMzQzNiAwMDAwMCBuDQowMDAwMDAzNjQwIDAwMDAw AC4JQsInCQUqHRD5UrOoZBUzSDOtxu8DGHTqPUCsUjE6WCVjRGLnTPMmXNzcBWRlSSV1QyP1WYJwDAVp YY7RJhZbFZByFGg1TTBdXSQnHYIrig0USASzKVVtRbRaZMLuLDGsXAHzXDznVPIlDMRpXmR8FBGnVICh NA9SUoOlETHqUNT8RCYiXFJfIMKfgq6DEWKpWEVuUe QmZYGeTDFlWNCgUVldZBIhUSD1ZXXeDHUfSRVxTZ5KCaChWDClPCi0VRwwFUBhMNVrak4AQQUuLBVzVj F7BJJdXQIpRNTzHIesEKZlYKDiNwD5CNOzXZPvEI4LUbEkEFRmGnKgKymkCXQtJJDmtu2TLYRoQQEzDg C8PLKfPBIjTJKcWXvpONAmMKZ4ZywzZZZxYYLvBG7O HwFjGBRaFys4AKIiPMPaCWBuve8IRRBrGIPaEpRiDdJkORDsWPPgQXhdIXBuGARoBVCgCLPiWXWsIT8P BqDcMNQbWpF7WOJjUUXjUZOqun8ZQGMhFJAhOOaqJKPvSAXeJUYcSBmaVEKqVIW2CpofLYUhEITzWV5O HqSwUMYdOeb5SPcmBTVfENRmec8OIQLwWOB8VTq2WZ HxMQVtCDLbPTssWHAsZIEvBUUtDJSqRXEfPP5QPoGmLHVeWOGvBeKuCLAqPTSbvs8RRDHfMHC6GcPsTS MtUYTgLZLiXIpgEVGbOLPeFWWmPDKfBEVhNI5ONuGoBOIsUBIdGzTbLNBbBXXyzt7AWZUmURL2WuX1Ia GvVRJuOCEdTIbjIMDcABEuMoUjYBDoGIWfHY2HBcIn DWGlEEQeNcOpYYJoILFmqm6CPQRnGLK7SLH3WtUvRNMoBNEoKLzvMLEsPTD0PrBwVKNtYARpEJ8VSgRp DYMxGGM5LQCxFTYnHKVfgo7YETAiUVD4TvG5XgWrZQOhEQHjNSmcEXKoBAU2OFpeYYVgWYKfSJ5DXcJi EPKsPZprOsAmIIIzMFOkod5SDELtHDZ3RjU6XpYeJL YdIONrRLifDEZkATM8WeTwYMFlAAFkNF3ECqCtIEXnIOtbJNPwJUNiCZFjtn1QZQRcDUS9TEB1PpPpII XwUXAvAVfbURLzIRM7SGQ8DMWeZKArHA8TCjXvHXByQQg4ZgyhFHHnQLDbsw3QIPKiFMM4EBj4CcYzDT HxALTwRVhcGJPwAIYfRLX9FZFfWAJsIO7UOrUhHFBu KqSaWRxeEDXkYEVggi2IhZXdjAelhc5IOFhZIs5VcSasJZWdCSzhDy7lcMM0MxFzMWXDZm7FykXgBQUw BJXPHLloTZBnKJZvKIB9ERBaQtC3DQJqICDgHIR6ZFgyO5B1EnqhWSE0JqK7I6B4IdwcOrC5SvfsHBPr LTS8VfczFFIlJwT0CGF2Ftu+XE8lPDt+Dx7Zf1XxsyS6cuWiLYg2TLM7Ga3YLBKUF5WZZe== ID Date Data Source [id number] 11/17/2020 11:27:03 PM EDT [facility] Name Value Range Interpretation Code Description Data Lou rce(s) Supporting Document(s) Discharge Summary [facility] NTZRCe3kOuNNVqAu88/YBLzzUIDuo1BbMVweLUy3TZzyVRLtG9LlQTL8hD0jAGE9RKiSVwVlIsZbNmJz lbm [file] V7DgN8VNuyRf5sQNMWVj6+IOpaqIUkdFusBBWDMxF2WBJ7VPbpNNIQRs2G ID Date Data Source [id number] 11/17/2020 03:42:22 PM EDT [facility] Name Value Range Interpretation Code Description Data Lou rce(s) Supporting Document(s) Progress Note [facility] FNSGWi1uUfKTNlJh71/QBOpwHXAnr2FgKWdxOMy1BIwxKRYjU3VoTWE7vQ7pMLY5DFxPHfVaDfPmMiVm lbm [file] YNCg== ID Date Data Source [id number] 11/17/2020 03:24:34 PM EDT [facility] Name Value Range Interpretation Code Description Data Lou rce(s) Supporting Document(s) Consultation [facility] WOAOXp8iYnZAMyWl02/XUBduDKXnp8KvJNfkXKr4KTgpELHlC7QnRRF1xP9yDNV0ENxPLrXzWyXkRrIz lbm [file] IiDNQ6S6ZjVSVtQIvuCPP0MMjhVIJtGYFtZdBqIO 4GYh1FWyH8TCB6sEUySi4SPuG9DLWGNmBdJF2FZSr= ID Date Data Source [id number] 11/17/2020 02:27:40 PM EDT [facility] Name Value Range Interpretation Code Description Data Lou rce(s) Supporting Document(s) Leukocytes [#/volume] in Blood by Automated count 8.2 10*3/uL 4-10 [facility] Erythrocytes [#/volume] in Blood by Automated count 3.30 10*6/uL 4.6- 6.1 L [facility] Hemoglobin [Mass/volume] in Blood 8.8 g/dL 13.5-18 L [facility] Hematocrit [Volume Fraction] of Blood by Automated count 26.5 % 4 1-53 L [facility] Erythrocyte mean corpuscular volume [Entitic volume] by Auto mated count 80.3 fL 80-96 [facility] Erythrocyte mean corpuscular hemoglobin [Entitic mass] by Automated count 26.6 pg 27-33 L [facility] Erythrocyte mean corpuscular hemoglobin concentration [Mass/volume] by [facility] 33.1 [facility] distribution width [Ratio] by Automated count 19.2 % 11.5-14.5 H [facility] Platelets [#/volume] in Blood by Automated count 203 10*3/uL 150-400 [facility] Confirmed ID Date Data Source [id number] 11/17/2020 09:20:32 AM EDT [facility] US ABDOMEN LIMITED [id number] RESULTInte rpreted by:ALEX CarringtonROCEDURE INFORMATION: Exam: US [...] which has nodular contour. Series 1, image [id number] indicates normal portal hepatopetal flow of the [...] rce(s) Supporting Document(s) ID Date Data Source [id number] 11/17/2020 08:51:22 AM [facility] Name Value Range Interpretation Code Description [facility] MKIZGw1hGhURZkVb14/IWOpjSRRuq7SsNHexNJq3ZMeaYAYqK1JnQQH7xM6gROS3OPeCCpZfPvFbMfBq m [file] [id number]EZEPRN2UXFs== ID Date Data Source [id number] 11/17/2020 08:31:25 AM EDT [facility] Name Value Range Interpretation Code Description Data Lou rce(s) Supporting Document(s) Glucose [Mass/volume] in Capillary blood by Glucometer 133 mg/dL 70- 140 [facility] ID Date Data Source [id number] 11/17/2020 07:48:05 AM EDT [facility] Name Value Range Interpretation Code Description Data Lou rce(s) Supporting Document(s) History and Physical [facility] FHDJZj2nChTTOaRa94/NXFxjLMJni6CuZIccFRe7QOgsMVPjY5QaYNZ3eN0rPFE0FBoPRkLySbYuDmUm lbm [file] door assembler+DJAivJNiUVXoXpiUikGu3rP7hjZVryH39NE6jF1VknFET0+rE9cd7BvAU+45ks5m1zPyZ4wQOKqJ [file] [id number] ID Date Data Source [id number] 11/17/2020 03:04:17 AM EDT [facility] Name Value Range Interpretation Code Description Data Lou rce(s) Supporting Document(s) Leukocytes [#/volume] in Blood by Automated count 7.4 10*3/uL 4-10 [facility] Erythrocytes [#/volume] in Blood by Automated count 3.00 10*6/uL 4.6- 6.1 L [facility] Hemoglobin [Mass/volume] in Blood 7.8 g/dL 13.5-18 L [facility] Hematocrit [Volume Fraction] of Blood by Automated count 24.0 % 4 1-53 L [facility] Erythrocyte mean corpuscular volume [Entitic volume] by Auto mated count 80.2 fL 80-96 [facility] Erythrocyte mean corpuscular hemoglobin [Entitic mass] by Automated count 26.1 pg 27-33 L [facility] Erythrocyte mean corpuscular hemoglobin concentration [Mass/volume] by Automated count 32.6 g/dL 32.0-36.0 [facility]th[facility] distribution width [Ratio] by Automated count 19.2 % 11.5-14.5 H [facility] Platelets [#/volume] in Blood by Automated count 165 10*3/uL 150-400 [facility] Differential cell count method - Blood [facility] Neutrophils/100 leukocytes in Blood by Automated count 62 % [facility] Lymphocytes/100 leukocytes in Blood by Automated count 13 % [facility] Monocytes/100 leukocytes in Blood by Automated count 21 % [facility] Eosinophils/100 leukocytes in Blood by Automated count 3 % [facility] Basophils/100 leukocytes in Blood by Automated count 1 % [facility] Neutrophils [#/volume] in Blood by Automated count 4.58 10*3/uL 1.8-7 .0 [facility] Lymphocytes [#/volume] in Blood by Automated count 0.99 10*3/uL 1.2-4 .0 L [facility] Monocytes [#/volume] in Blood by Automated count 1.58 10*3/uL 0-0.8 H [facility] Eosinophils [#/volume] in Blood by Automated count 0.22 10*3/uL 0-0.5 [facility] Basophils [#/volume] in Blood by Automated count 0.04 10*3/uL 0-0.2 [facility] Nucleated erythrocytes/100 leukocytes [Ratio] in Blood by Automated count 0 /100{WBCs} 0-0 [facility] ID Date Data Source [id number] 11/17/2020 03:21:33 AM [facility] Name Value Range Interpretation Code Description Data Lou rce(s) Supporting Document(s) Bicarbonate [Moles/volume] in Serum 27 mmol/L 22-29 [facility] Chloride [Moles/volume] in Serum or Plasma 97 mmol/L 98-107 L [facility] Creatinine [Mass/volume] in Serum or Plasma 0.44 mg/dL 0.70-1.20 [facility] Glucose [Mass/volume] in Serum or Plasma 117 mg/dL 70-140 [facility] Potassium [Moles/volume] in Serum or Plasma 3.2 mmol/L 3.4-5.1 [facility] Sodium [Moles/volume] in Serum or Plasma 132 mmol/L 136-145 L [facility] Urea nitrogen [Mass/volume] in Serum or Plasma 6 mg/dL 6-20 [facility] Anion gap 3 in Serum or Plasma 8 mmol/L 8-15 [facility] Osmolality of Serum or Plasma by calculation 273 mosm/kg 275-300 L [facility] Creatinine/Urea nitrogen [Mass Ratio] in Serum or Plasma 14 [facility] Calcium [Mass/volume] in Serum or Plasma 7.7 mg/dL 8.6-10.0 L [facility] Glomerular filtration rate/1.73 sq M pre dicted among non-blacks [Volume Rate/Area] in Serum or Plasma by Creatinine-based formula (MDRD) >6 0 [facility] Glomerular filtration rate/1.73 sq M pre dicted among blacks [Volume Rate/Area] in Serum or Plasma by Creatinine-based formula (MDRD) >60 [facility] ID Date Data Source [id number] 11/17/2020 02:46:49 AM EDT [facility] Name Value Range Interpretation Code Description Data Lou rce(s) Supporting Document(s) Glucose [Mass/volume] in Capillary blood by Glucometer 132 mg/dL 70- 140 [facility] ID Date Data Source [id number] 11/16/2020 11:03:46 PM [facility] Value Range Interpretation Code Description Data Lou rce(s) Supporting Document(s) Glucose [Mass/volume] in Capillary blood by Glucometer 152 mg/dL 70- 140 [facility] ID Date Data Source [id number] 11/16/2020 07:34:41 PM [facility] Value Range Interpretation Code Description Data Lou rce(s) Supporting Document(s) Glucose [Mass/volume] in Capillary blood by Glucometer 135 mg/dL 70- 140 [facility] ID Date Data Source [id number] 11/16/2020 05:29:34 PM [facility] Value Range Interpretation Code Description Data Lou rce(s) Supporting Document(s) Glucose [Mass/volume] in Capillary blood by Glucometer 90 mg/dL 70- 140 [facility] ID Date Data Source [id number] 11/16/2020 04:15:48 PM [facility] Value Range Interpretation Code Description Data Lou rce(s) Supporting Document(s) Glucose [Mass/volume] in Capillary blood by Glucometer 218 mg/dL 70- 140 [facility] ID Date Data Source [id number] 11/16/2020 03:39:03 PM [facility] Value Range Interpretation Code Description Data Lou rce(s) Supporting Document(s) Leukocytes [#/volume] in Blood by Automated count 8.0 10*3/uL 4-10 [facility] Erythrocytes [#/volume] in Blood by Automated count 3.42 10*6/uL 4.6- 6.1 [facility] Hemoglobin [Mass/volume] in Blood 8.9 g/dL 13.5-18 [facility] Hematocrit [Volume Fraction] of Blood by Automated count 27.6 % 4 1-53 [facility] Erythrocyte mean corpuscular volume [Entitic volume] by Auto mated count 80.8 fL 80-96 [facility] Erythrocyte mean corpuscular hemoglobin [Entitic mass] by Automated count 26.1 pg 27-33 [facility] Erythrocyte mean corpuscular hemoglobin concentration [Mass/volume] by Automated count 32.3 g/dL 32.0-36.0 [facility] Eryth[facility] distribution width [Ratio] by Automated count 19.1 % 11.5-14.5 H [facility] Platelets [#/volume] in Blood by Automated count 159 10*3/uL 150-400 [facility] Differential cell count method - Blood [facility] Neutrophils/100 leukocytes in Blood by Automated count 69 % [facility] Lymphocytes/100 leukocytes in Blood by Automated count 10 % [facility] Monocytes/100 leukocytes in Blood by Automated count 16 % [facility] Eosinophils/100 leukocytes in Blood by Automated count 4 % [facility] Basophils/100 leukocytes in Blood by Automated count 1 % [facility] Neutrophils [#/volume] in Blood by Automated count 5.58 10*3/uL 1.8-7 .0 [facility] Lymphocytes [#/volume] in Blood by Automated count 0.79 10*3/uL 1.2-4 .0 L [facility] Monocytes [#/volume] in Blood by Automated count 1.32 10*3/uL 0-0.8 H [facility] Eosinophils [#/volume] in Blood by Automated count 0.31 10*3/uL 0-0.5 [facility] Basophils [#/volume] in Blood by Automated count 0.04 10*3/uL 0-0.2 [facility] Nucleated erythrocytes/100 leukocytes [Ratio] in Blood by Automated count 0 /100{WBCs} 0-0 [facility] ID Date Data Source [id number] [facility]/16[facility] Interpretation Code Description Data Lou rce(s) Supporting Document(s) Glucose [Mass/volume] in Capillary blood by Glucometer 106 mg/dL 70- 140 [facility] ID Date Data Source [id number] 11/16/2020 07[facility]59[facility] Interpretation Code Description Data Lou rce(s) Supporting Document(s) Glucose [Mass/volume] in Capillary blood by Glucometer 119 mg/dL 70- 140 [facility] ID Date Data Source [id number] 11/16/2020 05:48:16 AM [facility] Value Range Interpretation Code Description Data Lou rce(s) Supporting Document(s) Glucose [Mass/volume] in Capillary blood by Glucometer 101 mg/dL 70- 140 [facility] ID Date Data Source [id number] 11/19/2020 09:27:00 AM EDT [facility] Surgical Pathology ReportName: JEFRY MORINMRN: [id number] Number: [id number] Date: 11/16/2020 00:00Received Date: 11/16/2020 11:32Physician(s): RON LINARES MD OZDEN, NURI,MDCopy To:DONAL FUNEZ MDSpecimen(s) ReceivedA: Antrum biopsyClinical HistoryMelena.DiagnosisSTOMACH, ANTRUM, BIOPSY: MILD CHRONIC GASTRITIS. NO H. PYLORI IDENTIFIED. Electronically Signed By Kelle Ordaz MD, Attending Pathologist 109:27:42Professional services performed at [facility] Pathology Laboratory [facility], [address] [place] [address]. Unless 'gross-only'is specified, the final diagnosis is [...] and their pe rformance characteristics determined by [facility] Pathology department. They have not been cleared or approved by the USFood and Drug Administration. The FDA has determined that such clearanceor approval is not necessary. Name Value Range Interpretation Code Description Data Lou rce(s) Supporting Document(s) ID Date Data Source [id number] 11/16/2020 12:27:10 AM EDT [facility] Name Value Range Interpretation Code Description Data Lou rce(s) Supporting Document(s) Bicarbonate [Moles/volume] in Serum 21 mmol/L 22-29 L [facility] Chloride [Moles/volume] in Serum or Plasma 99 mmol/L 98-107 [facility] Creatinine [Mass/volume] in Serum or Plasma 0.54 mg/dL 0.70-1.20 L [facility] Glucose [Mass/volume] in Serum or Plasma 106 mg/dL 70-140 [facility] Potassium [Moles/volume] in Serum or Plasma 4.0 mmol/L 3.4-5.1 [facility] Sodium [Moles/volume] in Serum or Plasma 130 mmol/L 136-145 L [facility] Urea nitrogen [Mass/volume] in Serum or Plasma 8 mg/dL 6-20 [facility] Anion gap 3 in Serum or Plasma 11 mmol/L 8-15 [facility] Osmolality of Serum or Plasma by calculation 269 mosm/kg 275-300 [facility] Creatinine/Urea nitrogen [Mass Ratio] in Serum or Plasma 16 [facility] Calcium [Mass/volume] in Serum or Plasma 8.2 mg/dL 8.6-10.0 L [facility] Glomerular filtration rate/1.73 sq M pre dicted among non-blacks [Volume Rate/Area] in Serum or Plasma by Creatinine-based formula (MDRD) >6 0 [facility] Glomerular filtration rate/1.73 sq M pre dicted among blacks [Volume Rate/Area] in Serum or Plasma by Creatinine-based formula (MDRD) >60 [facility] ID Date Data Source [id number] 11/16/2020 12:16:14 AM T [facility] Name Value Range Interpretation Code Description Data Lou rce(s) Supporting Document(s) Leukocytes [#/volume] in Blood by Automated count 10.6 10*3/uL 4-10 [facility] Erythrocytes [#/volume] in Blood by Automated count 3.43 10*6/uL 4.6- 6.1 [facility] Hemoglobin [Mass/volume] in Blood 8.9 g/dL 13.5-18 [facility] Hematocrit [Volume Fraction] of Blood by Automated count 27.7 % 4 1-53 [facility] Erythrocyte mean corpuscular volume [Entitic volume] by Auto mated count 80.9 fL 80-96 [facility] Erythrocyte mean corpuscular hemoglobin [Entitic mass] by Automated count 25.9 pg 27-33 [facility] Erythrocyte mean corpuscular hemoglobin concentration [Mass/volume] by Automated count 32.0 g/dL 32.0-36.0 [facility] Erythrocyte distribution width [Ratio] by Automated count 18.7 % 11.5-14.5 [facility] Platelets [#/volume] in Blood by Automated count 136 10*3/uL 150-400 [facility] Differential cell count method - Blood [facility] Neutrophils/100 leukocytes in Blood by Automated count 72 % [facility] Lymphocytes/100 leukocytes in Blood by Automated count 7 % [facility] Monocytes/100 leukocytes in Blood by Automated count 17 % [facility] Eosinophils/100 leukocytes in Blood by Automated count 3 % [facility] Basophils/100 leukocytes in Blood by Automated count 1 % [facility] Neutrophils [#/volume] in Blood by Automated count 7.64 10*3/uL 1.8-7 .0 [facility] Lymphocytes [#/volume] in Blood by Automated count 0.71 10*3/uL 1.2-4 .0 [facility] Monocytes [#/volume] in Blood by Automated count 1.83 10*3/uL 0-0.8 [facility] Eosinophils [#/volume] in Blood by Automated count 0.34 10*3/uL 0-0.5 [facility] Basophils [#/volume] in Blood by Automated count 0.06 10*3/uL 0-0.2 [facility] Nucleated erythrocytes/100 leukocytes [Ratio] in Blood by Automated count 0 /100{WBCs} 0-0 [facility] ID Date Data Source [id number] 11/15/2020 11:51:31 PM EDT [facility] Name Value Range Interpretation Code Description Data Lou rce(s) Supporting Document(s) Glucose [Mass/volume] in Capillary blood by Glucometer 108 mg/dL 70- 140 [facility] ID Date Data Source [id number] [facility] Value Range Interpretation Code Description Data Lou rce(s) Supporting Document(s) [facility] TDYGLl3gAdTBFhIs38/IANshZODkn1GgJSvyKVu8YMgcPYLzI9CyBWX2uX8vJRG7ZZnRZzJgHvVxXoX0 [facility] HcDvvERiElQDKyNlqSJnEcTZmbVitzfPOoPR6SePG9EHQbF82mNFTwVQZlI3KzJXB6BWR+Vd9WLENyuZ PsOT1IBclS7Y2NarvSPD1NoF/KNKOVOgal5iXigTX6KLga1IKWMDVnPAPeUlNMhzqfBy3+racZIDz8zm YLE3EA34rjKv/WHImZQ7TY/mmpKft8s0QD6e/61zB2 VO9O/fUvalPNddbVNr+hPuIAE7QWkEvWt9Op2it8sXGWw9uh7H7z0wSJnmqIJECQK0R92N75b3Wd/6ts 984RLfFzu3ajb8eYjlPS66YibZs3JN2uNxObhhBId1OCaNqWQfLFdRWZpjgBeOESgD3zz1Hz3gUTgfAm A/ycg2W/WleAp9WmhQXVscQ1NYrtPrQe9rbHwgtpCc XgkD1Tvt0sbnr4OFB2o+3AXXdum+tECPyfnaE5Ujec+7iVU3wgS3Zo0Mkrf6dVglsCXX+tQA3TAX1s6j Zs/0nxQqrFsQy7LFjw3RG0b01SRnj2tmRSxr4rV9xlGd9mz+NyjahrUskR1nfaQ4d83Bs5KRK2ySC8r/ 7DzmLlALZVQgXmp2jU1a1fIuJsIU77CkI7lAIFvMC6 eEhcw0IlFDGhJaCOucLHeX/pbLBw3oaskfjssMEFc7rgHnOVN+WguUrqgjzJ9dEHinEMJfPx707AqRtc Zunk++DHZ0Cp18hE7BU7X7kbaPUewvrg3/HCyr1xDCW18sMP5l82EtWM8//MbUMU5/rfprbsMgcdJwff 8mHOMSWGP6JnlYjTIOaHBRS/VIii83ZAKAOQi4FSKi [file] AgICAgICAgICAgICAgICAgICAgICAgICAgICAgICAg ICAgICAgICAgICAgICAgICAgICAgICAgICAgICAgICAgICAgICAgICAgDQogICAgICAgICAgICAgICAg ICAgICAgICAgICAgICAgICAgICAgICAgICAgICAgICAgICAgICAgICAgICAgICAgICAgICAgICAgICAg ICAgICAgICAgICAgICAgICAgICAgICAgDQogICAgIC AgICAgICAgICAgICAgICAgICAgICAgICAgICAgICAgICAgICAgICAgICAgICAgICAgICAgICAgICAgIC AgICAgICAgICAgICAgICAgICAgICAgICAgICAgICAgICAgDQogICAgICAgICAgICAgICAgICAgICAgIC AgICAgICAgICAgICAgICAgICAgICAgICAgICAgICAg ICAgICAgICAgICAgICAgICAgICAgICAgICAgICAgICAgICAgICAgICAgICAgDQogICAgICAgICAgICAg ICAgICAgICAgICAgICAgICAgICAgICAgICAgICAgICAgICAgICAgICAgICAgICAgICAgICAgICAgICAg ICAgICAgICAgICAgICAgICAgICAgICAgICAgDQogIC AgICAgICAgICAgICAgICAgICAgICAgICAgICAgICAgICAgICAgICAgICAgICAgICAgICAgICAgICAgIC AgICAgICAgICAgICAgICAgICAgICAgICAgICAgICAgICAgICAgDQogICAgICAgICAgICAgICAgICAgIC AgICAgICAgICAgICAgICAgICAgICAgICAgICAgICAg ICAgICAgICAgICAgICAgICAgICAgICAgICAgICAgICAgICAgICAgICAgICAgICAgDQogICAgICAgICAg ICAgICAgICAgICAgICAgICAgICAgICAgICAgICAgICAgICAgICAgICAgICAgICAgICAgICAgICAgICAg ICAgICAgICAgICAgICAgICAgICAgICAgICAgICAgDQ ogICAgICAgICAgICAgICAgICAgICAgICAgICAgICAgICAgICAgICAgICAgICAgICAgICAgICAgICAgIC AgICAgICAgICAgICAgICAgICAgICAgICAgICAgICAgICAgICAgICAgDQogICAgICAgICAgICAgICAgIC AgICAgICAgICAgICAgICAgICAgICAgICAgICAgICAg GOOzLUNvSJDyGIPuIVSjEFVcOBSgVNFwUODiDIJtXUDqGXIoHZVtUPQkULPfCQVaKZDpVWs5G3iwFTNl LMXiUZ6jKWf4Fi5+FHkDUmOeJNR9ahNqfI1AXE5hh7UvOThwBUOxr5XnBAx1UZ6HCDHoHTkoBO7XDRxp yq5SLHFnUKRpwCKQb4zyCvWxPWG3VKLvKgdyNP4RRI HnR6pilaEvCIIpWVZJNRitEYIFYWrxUZAPOLTsOHEnZtLiKmFvIINiXYGaWBTWLL6DWyFkZ7QaeQ93IJ YNCj4+LKbsulAvClqBYbW3ORXvg2OzIVp8QU4FHDItCoehl5IePzTjLHFYTZoiXQ6UFAW2EPC6VZJhZv 9VXBJpR296hmJdWX1JOf9DGvYqYP9ofr8SZuKwSGHc OaaIHnv7QMgoKG1PoXSpZThTh68gqZp3esJzrNRSDHW2rHNMTGGzgGQeiMphVIEEYtCglLH6RxU8YuCu AfTqQCF1SdcgQH4aNDubFT1TMTL1MJeuJAXiIDMsI8jJRzMxZBAnOVDplEqbIW0KAcIxN9DtdqAbwMLb NSAwIFINCj4+LZwtpyYbWnaBFzX5ZZIvo8TtGYb8PW 5VRRJgUCffEG5RDFVmpY5eVHwdDI8UMgCwZfXpXFRORnSnY03ngVYhVBz9O1PgDnPcJJGyPhuhNMVvKO wvTmFtZXMgWyBdDQogID4+ID4+AEjqQA9RSXfsdsSnZNDnFw9NJNRfYSOmGT7gIFUoOQVbY0O7zQvkKV ADRwAoO6cnmpcoQY7nBJXqP322sZacapBpCJI3HLBb Yu5CYFErLCJ5AQJehMKlTkSpCIQYHLuwHA3QmJFtTNS8cP8gMJmyFAFbMUBvW7mIIbFfzDfxHG14hMnc bnVsbCBdDQo+Dw5RVD4og0IqYLx1emVxIZqlMJY3FIvmRLIcERFhJQCmTYG0CIT4ROVRNoDgIIKvQMAl VAdcXHFkSKDrqq1VOJCgCOWnRBAiMCMhQCZwIIYfNO kuMGSePEV3IITwLDFyCTYcCU1UVcIpBRJoMQNrARnsXQNeYHRudt7ETNHhCZJgFfv6VJKlETZcAGJyDB neCSZcNBZ0QIv0NRXvARUrBB1XHlCvFRCmZKU7MtPtRGGhFLZtqm8LJWHgEIKvOfJ4UYWxWVPjRKBpVQ naDLGgTFO3LJG5AACtCQAhUY7SIoUqNJMdBVIsBFer GRQrEUDfxu3BIJSsQPLyWsJfMsAzAYByLLLtGHgjZYLtBYTePuZ3BVOaSIZkHH4CLpGqXLKrDHA4KMAa EILlLAMnhz8IITBzRUCsDLx9OQWdWIIqJCYnVHvvBUZaROW2XPZ3SKJbXGLpRH5LZjJzTDYnMTB9WJOl OSIcHBTwte2CKULfGXAxFxcyGeLiEYAnQMEeJBusOA VeGRS7VIJtINEfFNYqLW1RZcAkQWBlFTbdQCEsIPEiCVNkka7RWVSsAERuXOB9FhJoSBMrKDIzFTgpYB UxWIC1ZjN9GHTdUGZgMJ0JBwVjITPaMUm0RdHrZWVgWWIdit5IZGYdAIBsIJU9XlJwEOEeDLElOTeoRZ KmWSSnDLp2CFQbPPReLJ7XWtHnDBUyLnA0FwQrIJDs ZHKaai6GFVTtVPMkEkR7JnZuLMIlLMFfSVluDIOcIQPuADj7KGNnWPIkFU8RQtYpSYCfKqG6HIMmHFYv JXTkwk7DQVWvDVCiMhpcEoHsRAIgICCyNPmyNZUdISDqIWU9AHQeLQMjJS6KRdKvMQZgCvBwUPQmHROi ITVvlk8ORHEfOXWdSQFdMSObNIEzUUThLQjjYGEpTW R4Cst7DMHbJDWoXE4WEjEkAIZuVsQ8XDUdZGAnUGGszo4ZMRFuBXEeWrL8YmXvGPCqEPNvAYrvOATpYE H4TlS9LSXzDGNbGN8GHjNaLFFnRiP3TPjyVTNmFKJtos9RnJOwmZvdxo3BPEgEHd1LeQxeZIR5ABdiHk 4qfJGeLnSzVSHMOe8EedQwTPRdRBSNNHvnCAAlALTk HEU3TYlcCfX2DRUvYIRkZuPzRYH5FWJ4HNh9Xbk5KpM8JjAqHLd2A2F5Qdx5VtAlFUSzKCB6ZdhaBjRb OTUzOTQ+VM2cQMy+Ll9Ta9KiamQ8uzLeJXbcPrd6Ve0HWPCOH1DPIg== ID Date Data Source [id number] 11/15/2020 07:26:24 PM EDT [facility] Name Value Range Interpretation Code Description Data Lou rce(s) Supporting Document(s) Glucose [Mass/volume] in Capillary blood by Glucometer 109 mg/dL 70- 140 [facility] ID Date Data Source [id number] 11/15/2020 04:11:20 PM [facility] Name Value Range Interpretation Code Description Data Lou rce(s) Supporting Document(s) Glucose [Mass/volume] in Capillary blood by Glucometer 111 mg/dL 70- 140 [facility] ID Date Data Source [id number] 11/15/2020 04:23:03 PM [facility] Name Value Range Interpretation Code Description Data Lou rce(s) Supporting Document(s) Albumin [Mass/volume] in Serum or Plasma by Bromocresol green (BCG) dye binding method 3.3 g/dL 3.5-[facility]2 [facility] Bil[facility].total [Mass/volume] in Serum or Plasma 1.9 mg/dL <1.2 [facility] Bilirubin.direct [Mass/volume] in Serum or Plasma 1.1 mg/dL <0.3 [facility] Alkaline phosphatase [Enzymatic activity/volume] in Serum or Plasma 135 U/L 40-129 [facility] Aspartate aminotransferase [Enzymatic activity/volume] in Serum or Plasma 267 U/L <40 [facility] Alanine aminotransferase [Enzymatic activity/volume] in Seru m or Plasma 136 U/L <41 [facility] Protein [Mass/volume] in Serum or Plasma 5.9 g/dL 6.4-8.3 [facility] ID Date Data Source [id number] 11/15/2020 05:07:41 PM [facility] Name Value Range Interpretation Code Description Data Lou rce(s) Supporting Document(s) Leukocytes [#/volume] in Blood by Automated count 9.0 10*3/uL 4-10 [facility] Erythrocytes [#/volume] in Blood by Automated count 3.38 10*6/uL 4.6- 6.1 [facility] Hemoglobin [Mass/volume] in Blood 9.0 g/dL 13.5-18 [facility] Hematocrit [Volume Fraction] of Blood by Automated count 27.3 % 4 1-53 [facility] Erythrocyte mean corpuscular volume [Entitic volume] by Auto mated count 80.8 fL 80-96 [facility] Erythrocyte mean corpuscular hemoglobin [Entitic mass] by Automated count 26.7 pg 27-33 [facility] Erythrocyte mean corpuscular hemoglobin concentration [Mass/volume] by Automated count 33.0 g/dL 32.0-36.[facility]th[facility] distribution width [Ratio] by Automated count 18.6 % 11.5-14.5 [facility] Platelets [#/volume] in Blood by Automated count 124 10*3/uL 150-400 [facility] Confirmed Differential cell count method - Blood [facility] Neutrophils/100 leukocytes in Blood by Automated count 76 % [facility] Lymphocytes/100 leukocytes in Blood by Automated count 6 % [facility] Monocytes/100 leukocytes in Blood by Automated count 14 % [facility] Eosinophils/100 leukocytes in Blood by Automated count 3 % [facility] Basophils/100 leukocytes in Blood by Automated count 1 % [facility] Neutrophils [#/volume] in Blood by Automated count 6.78 10*3/uL 1.8-7 .0 [facility] Lymphocytes [#/volume] in Blood by Automated count 0.56 10*3/uL 1.2-4 .0 [facility] Monocytes [#/volume] in Blood by Automated count 1.26 10*3/uL 0-0.8 [facility] Eosinophils [#/volume] in Blood by Automated count 0.29 10*3/uL 0-0.5 [facility] Basophils [#/volume] in Blood by Automated count 0.06 10*3/uL 0-0.2 [facility] Nucleated erythrocytes/100 leukocytes [Ratio] in Blood by Automated count 0 /100{WBCs} 0-0 [facility] ID Date Data Source [id number] 11/15/2020 04:56:38 PM [facility] Name Value Range Interpretation Code Description Data Lou rce(s) Supporting Document(s) Hepatitis C virus Ab [Presence] in Serum or Plasma by Immuno assay Non Reactive [facility] No serological evidence of active infect ion. If recent exposure is suspected, test for HCV RNA. ID Date Data Source [id number] 11/15/2020 07:13:54 AM [facility] Name Value Range Interpretation Code Description Data Lou rce(s) Supporting Document(s) Bicarbonate [Moles/volume] in Serum 19 mmol/L 22-29 [facility] Chloride [Moles/volume] in Serum or Plasma 102 mmol/L 98-107 [facility] Creatinine [Mass/volume] in Serum or Plasma 0.69 mg/dL 0.70-1.20 [facility] Glucose [Mass/volume] in Serum or Plasma 112 mg/dL 70-140 [facility] Potassium [Moles/volume] in Serum or Plasma 3.9 mmol/L 3.4-5.1 [facility] Sodium [Moles/volume] in Serum or Plasma 130 mmol/L 136-145 [facility] Urea nitrogen [Mass/volume] in Serum or Plasma 13 mg/dL 6-20 [facility] Anion gap 3 in Serum or Plasma 9 mmol/L 8-15 [facility] Osmolality of Serum or Plasma by calculation 270 mosm/kg 275-300 [facility] Creatinine/Urea nitrogen [Mass Ratio] in Serum or Plasma 19 [facility] Calcium [Mass/volume] in Serum or Plasma 8.2 mg/dL 8.6-10.0 [facility] Glomerular filtration rate/1.73 sq M pre dicted among non-blacks [Volume Rate/Area] in Serum or Plasma by Creatinine-based formula (MDRD) >6 0 [facility] Glomerular filtration rate/1.73 sq M pre dicted among blacks [Volume Rate/Area] in Serum or Plasma by Creatinine-based formula (MDRD) >60 [facility] ID Date Data Source [id number] 11/15/2020 07:47:52 AM EDT [facility] Name Value Range Interpretation Code Description Data Lou rce(s) Supporting Document(s) Leukocytes [#/volume] in Blood by Automated count 7.5 10*3/uL 4-10 [facility] Erythrocytes [#/volume] in Blood by Automated count 3.25 10*6/uL 4.6- 6.1 [facility] Hemoglobin [Mass/volume] in Blood 8.5 g/dL 13.5-18 [facility] Hematocrit [Volume Fraction] of Blood by Automated count 26.2 % 4 1-53 [facility] Erythrocyte mean corpuscular volume [Entitic volume] by Auto mated count 80.6 fL 80-96 [facility] Erythrocyte mean corpuscular hemoglobin [Entitic mass] by Automated count 26.2 pg 27-33 [facility] Erythrocyte mean corpuscular hemoglobin concentration [Mass/volume] by Automated count 32.5 g/dL 32.0-36.0 [facility] Erythrocyte distribution width [Ratio] by Automated count 18.5 % 11.5-14.5 [facility] Platelets [#/volume] in Blood by Automated count 123 10*3/uL 150-400 [facility] Confirmed Differential cell count method - Blood [facility] Neutrophils/100 leukocytes in Blood by Automated count 72 % [facility] Lymphocytes/100 leukocytes in Blood by Automated count 10 % [facility] Monocytes/100 leukocytes in Blood by Automated count 13 % [facility] Eosinophils/100 leukocytes in Blood by Automated count 4 % [facility] Basophils/100 leukocytes in Blood by Automated count 1 % [facility] Neutrophils [#/volume] in Blood by Automated count 5.47 10*3/uL 1.8-7 .0 [facility] Lymphocytes [#/volume] in Blood by Automated count 0.72 10*3/uL 1.2-4 .0 [facility] Monocytes [#/volume] in Blood by Automated count 0.97 10*3/uL 0-0.8 [facility] Eosinophils [#/volume] in Blood by Automated count 0.32 10*3/uL 0-0.5 [facility] Basophils [#/volume] in Blood by Automated count 0.05 10*3/uL 0-0.2 [facility] Nucleated erythrocytes/100 leukocytes [Ratio] in Blood by Automated count 0 /100{WBCs} 0-0 [facility] ID Date Data Source [id number] 11/15/2020 12:33:23 PM [facility] Name Value Range Interpretation Code Description Data Lou rce(s) Supporting Document(s) Phosphate [Mass/volume] in Serum or Plasma 2.4 mg/dL 2.5-4.5 [facility] ID Date Data Source [id number] 11/14/2020 11:16:15 PM [facility] Name Value Range Interpretation Code Description Data Lou rce(s) Supporting Document(s) [facility] YRMFNh3nOwVFCvHh07/PGBagKFFif9CtDEpyOEr7VBtwMYZpS0OdRLF9mN3yUKR9XJtGQjTaRyPfKfV5 [facility] YmUisKQaPfAPUwQdpZFsOrFXptCfvinMMrGG9ZeOM9XOIlQ15jVSGzWZKsZ5MfWXX0IwR+Xh5YQIKjjC LwTP4HRmwA2Q8eXtbDNp7+6y1QRA91bilEdiu4mMBVRkXmVKE3De7ut7IY6X2tKB+Q2b73I4/DpirDL6 2eucWMcVOvqn8wqy8nt1oPIUA+24txaZGNagZ75+zP SMWB6H45+9/UvJvnzrrN/2SdyAOuEztR+UD+p6e/lfGSdhg5jIU9vQvjHz+2FRVka98BFwPE02Ksf+ri d6U9L2/HozODlV9BCJI8Yll6UfB1iLQqgJWEjlaEy7fXj+IAy8KehG4P5xNvkYDSvMVZwcEu8qJKxcyb yeoSiFpE3crCOSErsOSilYBXDC7Fhhnm1SnTqzS7r6 E+kB5v7OZ+dy59fmEeb1QkYPzsknIPku5bDpwnoT5G5UJMBx2FSyfFgJGopG5xmJJTb2L+yjKv7Bw+zN L15oFdlk7jmPl3JigU7dufWZnzb9KG+4omcvv9iS3aT+lF3F31F6rTafr53bdWcRGgmdgT41Y57IvBcn EzCktNx7ZDIDdHcJWok+roPeYCBkdr391i2RDwstwf yzJbnPfZTdpbsjhUGKulOs/+cXcJ5gA+OUv3iVSkUdkAJ/SBNS6rn+/tdy5qXHAOBGu1DWeRE1vRpwwX M7adLcHYmtbFFaondYYBmEh6tCSmIXtvfHBz1DSS7piuzo6yq5SlD2ig3YBvId1RtWsewGQ/HWrLLkrQ hJppb8mnMCe9OnwE2oTkIHLgW58/IaI7y4TNVUmYf6 VTMxarNNJRoh4hT7R26Xe6ZmJywKh4RwsJtvwxliGGbSo6kwET8Js1Y8TQLYOjY6PBdt7zqhLdOl+Mars [file] EwOme7JynoKAM5DQCcYzPhLTHnKlPxRT6tUQDLZj6+RXhyqGIfhBlzMWBKSnO3IUM1IIiyPEOOPp5L ID Date Data Source [id number] 11/15/2020 12:29:07 AM EDT [facility] Name Value Range Interpretation Code Description Data Lou rce(s) Supporting Document(s) Leukocytes [#/volume] in Blood by Automated count 7.5 10*3/uL 4-10 [facility] Erythrocytes [#/volume] in Blood by Automated count 3.11 10*6/uL 4.6- 6.1 L [facility] Hemoglobin [Mass/volume] in Blood 8.0 g/dL 13.5-18 L [facility] Hematocrit [Volume Fraction] of Blood by Automated count 24.9 % 4 1-53 [facility] Erythrocyte mean corpuscular volume [Entitic volume] by Auto mated count 80.0 fL 80-96 [facility] Erythrocyte mean corpuscular hemoglobin [Entitic mass] by Automated count 25.8 pg 27-33 [facility] Erythrocyte mean corpuscular hemoglobin concentration [Mass/volume] by Automated count 32.3 g/dL 32.0-36.0 [facility] Erythrocyte distribution width [Ratio] by Automated count 18.7 % 11.5-14.5 [facility] Platelets [#/volume] in Blood by Automated count 120 10*3/uL 150-400 [facility] Confirmed Differential cell count method - Blood [facility] Neutrophils/100 leukocytes in Blood by Automated count 71 % [facility] Lymphocytes/100 leukocytes in Blood by Automated count 11 % [facility] Monocytes/100 leukocytes in Blood by Automated count 13 % [facility] Eosinophils/100 leukocytes in Blood by Automated count 4 % [facility] Basophils/100 leukocytes in Blood by Automated count 1 % [facility] Neutrophils [#/volume] in Blood by Automated count 5.34 10*3/uL 1.8-7 .0 [facility] Lymphocytes [#/volume] in Blood by Automated count 0.83 10*3/uL 1.2-4 .0 [facility] Monocytes [#/volume] in Blood by Automated count 0.96 10*3/uL 0-0.8 [facility] Eosinophils [#/volume] in Blood by Automated count 0.32 10*3/uL 0-0.5 [facility] Basophils [#/volume] in Blood by Automated count 0.06 10*3/uL 0-0.2 [facility] Nucleated erythrocytes/100 leukocytes [Ratio] in Blood by Automated count 0 /100{WBCs} 0-0 [facility] ID Date Data Source [id number] 11/14/2020 03:50:27 PM EDT [facility] Name Value Range Interpretation Code Description Data Lou rce(s) Supporting Document(s) [facility] ZMGGNr2gVfKHFnMw42/ENGgyWYTnu2KvMYkbWCs2KAmySWVmE1CtEWN5gS6tTXU5VShXZjGgElIkSkB0 lbm [file] AgICAgICAgICAgICAgICAgICAgICAgICAgICAgICAgICAgICAgICAgICAgICAgICAgICAgICAgICAgIC AgICAgICAgICAgICAgICAgICAgICAgICAgICAgICAgICAgICAgICANCiAgICAgICAgICAgICAgICAgIC AgICAgICAgICAgICAgICAgICAgICAgICAgICAgICAg ICAgICAgICAgICAgICAgICAgICAgICAgICAgICAgICAgICAgICAgICAgICAgICAgICANCiAgICAgICAg ICAgICAgICAgICAgICAgICAgICAgICAgICAgICAgICAgICAgICAgICAgICAgICAgICAgICAgICAgICAg ICAgICAgICAgICAgICAgICAgICAgICAgICAgICAgIC ANCiAgICAgICAgICAgICAgICAgICAgICAgICAgICAgICAgICAgICAgICAgICAgICAgICAgICAgICAgIC AgICAgICAgICAgICAgICAgICAgICAgICAgICAgICAgICAgICAgICAgICANCiAgICAgICAgICAgICAgIC AgICAgICAgICAgICAgICAgICAgICAgICAgICAgICAg ICAgICAgICAgICAgICAgICAgICAgICAgICAgICAgICAgICAgICAgICAgICAgICAgICAgICANCiAgICAg ICAgICAgICAgICAgICAgICAgICAgICAgICAgICAgICAgICAgICAgICAgICAgICAgICAgICAgICAgICAg ICAgICAgICAgICAgICAgICAgICAgICAgICAgICAgIC AgICANCiAgICAgICAgICAgICAgICAgICAgICAgICAgICAgICAgICAgICAgICAgICAgICAgICAgICAgIC AgICAgICAgICAgICAgICAgICAgICAgICAgICAgICAgICAgICAgICAgICAgICANCiAgICAgICAgICAgIC AgICAgICAgICAgICAgICAgICAgICAgICAgICAgICAg ICAgICAgICAgICAgICAgICAgICAgICAgICAgICAgICAgICAgICAgICAgICAgICAgICAgICAgICANCiAg ICAgICAgICAgICAgICAgICAgICAgICAgICAgICAgICAgICAgICAgICAgICAgICAgICAgICAgICAgICAg ICAgICAgICAgICAgICAgICAgICAgICAgICAgICAgIC AgICAgICANCiAgICAgICAgICAgICAgICAgICAgICAgICAgICAgICAgICAgICAgICAgICAgICAgICAgIC AgICAgICAgICAgICAgICAgICAgICAgICAgICAgICAgICAgICAgICAgICAgICAgICANCjw/qWVmQ6yxhY FpueD6I9ljZd6IMg6OJB5kz9FlGVAjZRozeyUdMhoB CqKrZGZiDgzDVdv2AZlsQI4GfIXeV6SeV3IjHIykPH9AARVcQOJynCAyINLuKNFqScA7MDYzOJmmCD5H zZGfFDgjYBOrVRYgPlXdASVkMCYkUQZqVBFvTHGVVMSkDIYpIzMiTFjoOK0An7NazDT3JBi+St9KMG1u c9PdCYjmUcOsDQ2nug3CVEzKUvWdL8JclhC0QAE5TK VmHq8RGXNtXNDtcTZhSwHcPSRIItDnD7BoyM26AZXKKq7+NXxzfkRjFsoCKwJ8PSJyc1YbCAy2IJ6BUZ TsJDw0oKYzHIGQTDN0ANx9fbHtSOFqrDQsDMYQVXDguRS8QbH9HrRqHzMhFIN6PZDuFY1oJLobZT7BGQ W9DVtpXKOtXCDrV0dKOhToGCNmVMOvjNzvPE7ILiYx H5FymrYloGIePnHkSHBLPt1+KWyvkxGzQdgHLpZ8MCUei3ZlAEv4BQ7RMDUhIGrmEL9PFVGsqL1aNBnm DQ1ECbDnXSHnCJFMDaTvF34oqFDhAEw0V8BdGxPkLIIyYutpSKNuUPgpRtKrHJArYjOzZRelME5+ID4+ FInkTC1DFQbqtvJiEEMeRf7SBKToPJEcRH5nZUXhSU HoO3A6oRuvXCBPIgEyD7wuknljBT5pEQEqX897sPhhqaPnGKS5TKUwAf9NLAAgDSO9UITwjDCaAfCeOG WXGWbmEG7PgNEkBTF3cC0fNTfxEOCxEPWoF1jDEoKfcIgyUT59vYghzhNxyTHfSCb+Pi1OYY8wz2VaRX d3aiCiQEggTOJ2HCygIZXgSPZoMUKnOHR0TFC9VEGY GwShITIqOZCdCSotCHWzWLNqgs7AIFTfZBFsMMW9ELIpXOHaRGSdNKxnRCUmNJF1FgQkMZRuZEReZE5T CkPeCXBxAGShBIuqHAGsTNHocl4GQBFxKKPrZYB6QPZcBGVsSCNuBGzjHRVtOJZ5AOcpQROfJUHrHU9D GpUkVKSkNTg6QHSpHHHlILSvaj7ILMPbNOXhQjf0WQ FvFOCcZGAlXMvrLWYbTSVoNYP9QTHzTODxKN5CLaGbBQPoTXWhOqKiFOLaXUUslm4LVSOgHBUlQyzyXn GfAKRmJVSnXOrzVJXtZLGzFNG5WMMvMXRlSN8CEsFoCQEsRPTqLGTkLANdCAJooi6GPWDnLXAmQHR7Wr QdMMEkVYFzQSwnGYZpPIX1DCW5HFYqPOSqJE3IMrVf AJHaQKY2BLJnWRNuBKEtjd0XVDNiNTDdQeciAnXgRJCwTJWtWQlyTTPnGBU9NWo2KLYtPMYhAR8KUnIj XTDaKKpqCTuuLYZiPUZxqt4CJBVpSUDvWVX3ToSbTBMaJCTbQLsxWUMfGVS3XgT9FCWqGVRvLU0QFgCp NVQyCXi0MdsvQIZxYVXvfb8KNUHnWQNrFKPeGWMhZU BiXBLgSBrmKTYkFOOwYTn3DEPaZOSdBC3UBwIbZUOpLpF0POOxXQSvBVUynk2SMDYlGJAjHDd2GOMbNF ZmTIRjQIwfVZKhOUPaOfJzYVHuQLKpDG6QCdDxHWHsNcX6HgqqNKUpFSLtuc7XCDJnSBAtErm8MlJcYM XnRIZzFJgxJCLpYWIjARL2DTUwQULpBC3DSwQoOEEk JsMxSlHpWXFlUEHedo5GVNCtTCUlDXZsUwOyLDZyPKUwYEgeWKCoYBG4Nwn7FGReDYUrUS5TMbTvXMTa VnA4IlPwFXLgVAGkru0GQTVwZEWzSCMbFENtTCSiYYVuPCtsCZQsTUE4HYk3LJKvEMIzQC7VOfAtRQUj XzT9ETIgOIGvXMKvtc7ZVMLfMSKvKzV5EZJgCFNqDS BrSDs2ogVccVKnGUt5HQ3XU1FfbeGsAagROw2Mo575NEH8PUZsGe7IR1byBo6jBCDsDVOKKt3BJTc0Ih WoRUD6PSC8TeNvHgA7PdN2CqfzH0YzErZwDuS2RBG+NQziEnU6HrDyPSxhBJTzCZS8URkcUdE0MtFtBa NcELXeWI2zUERSOs4+WHwdnFVxzGrhXVJCRlC3XNH4QNvdIWMUSg0C ID Date Data Source [id number] 11/14/2020 05:33:49 PM EDT [facility] Name Value Range Interpretation Code Description Data Lou rce(s) Supporting Document(s) Albumin [Mass/volume] in Serum or Plasma by Bromocresol green (BCG) dye binding method 3.2 g/dL 3.5[facility] Bilirubin.total [Mass/volume] in Serum or Plasma 2.1 mg/dL <1.2 [facility] Calcium [Mass/volume] in Serum or Plasma 7.9 mg/dL 8.6-10.0 [facility] Chloride [Moles/volume] in Serum or Plasma 100 mmol/L 98-107 [facility] Creatinine [Mass/volume] in Serum or Plasma 0.64 mg/dL 0.70-1.20 [facility] Glucose [Mass/volume] in Serum or Plasma 94 mg/dL 70-140 [facility] Alkaline phosphatase [Enzymatic activity/volume] in Serum or Plasma 123 U/L 40-129 [facility] Potassium [Moles/volume] in Serum or Plasma 3.7 mmol/L 3.4-5.1 [facility] Protein [Mass/volume] in Serum or Plasma 5.8 g/dL 6.4-8.3 L [facility] Sodium [Moles/volume] in Serum or Plasma 130 mmol/L 136-145 [facility] Aspartate aminotransferase [Enzymatic activity/volume] in Serum or Plasma 325 U/L <40 [facility] Urea nitrogen [Mass/volume] in Serum or Plasma 13 mg/dL 6-20 [facility] Osmolality of Serum or Plasma by calculation 269 mosm/kg 275-300 [facility] Creatinine/Urea nitrogen [Mass Ratio] in Serum or Plasma 21 [facility] Bicarbonate [Moles/volume] in Serum 21 mmol/L 22-29 [facility] Alanine aminotransferase [Enzymatic activity/volume] in Seru m or Plasma 127 U/L <41 [facility] Anion gap 3 in Serum or Plasma 9 mmol/L 8-15 [facility] Glomerular filtration rate/1.73 sq M pre dicted among non-blacks [Volume Rate/Area] in Serum or Plasma by Creatinine-based formula (MDRD) >6 0 [facility] Glomerular filtration rate/1.73 sq M pre dicted among blacks [Volume Rate/Area] in Serum or Plasma by Creatinine-based formula (MDRD) >60 [facility] ID Date Data Source [id number] 11/14/2020 05:33:49 PM [facility] Name Value Range Interpretation Code Description Data Lou rce(s) Supporting Document(s) Magnesium [Mass/volume] in Serum or Plasma 2.5 mg/dL 1.6-2.6 [facility] ID Date Data Source [id number] 11/14/2020 05:33:49 PM [facility] Name Value Range Interpretation Code Description Data Lou rce(s) Supporting Document(s) Phosphate [Mass/volume] in Serum or Plasma 1.3 mg/dL 2.5-4.5 [facility] ID Date Data Source [id number] 11/14/2020 06:06:06 PM [facility] Name Value Range Interpretation Code Description Data Lou rce(s) Supporting Document(s) Leukocytes [#/volume] in Blood by Automated count 7.8 10*3/uL 4-10 [facility] Erythrocytes [#/volume] in Blood by Automated count 3.15 10*6/uL 4.6- 6.1 L [facility] Hemoglobin [Mass/volume] in Blood 8.3 g/dL 13.5-18 L [facility] Hematocrit [Volume Fraction] of Blood by Automated count 25.4 % 4 1-53 [facility] Erythrocyte mean corpuscular volume [Entitic volume] by Auto mated count 80.6 fL 80-96 [facility] Erythrocyte mean corpuscular hemoglobin [Entitic mass] by Automated count 26.4 pg 27-33 [facility] Erythrocyte mean corpuscular hemoglobin concentration [Mass/volume] [facility] 32.8 [facility].0[facility] distribution width [Ratio] by Automated count 18.5 % 11.5-14.5 [facility] Platelets [#/volume] in Blood by Automated count 116 10*3/uL 150-400 [facility] Confirmed Differential cell count method - Blood [facility] Neutrophils/100 leukocytes in Blood by Automated count 76 % [facility] Lymphocytes/100 leukocytes in Blood by Automated count 8 % [facility] Monocytes/100 leukocytes in Blood by Automated count 13 % [facility] Eosinophils/100 leukocytes in Blood by Automated count 2 % [facility] Basophils/100 leukocytes in Blood by Automated count 1 % [facility] Neutrophils [#/volume] in Blood by Automated count 5.95 10*3/uL 1.8-7 .0 [facility] Lymphocytes [#/volume] in Blood by Automated count 0.63 10*3/uL 1.2-4 .0 L [facility] Monocytes [#/volume] in Blood by Automated count 1.05 10*3/uL 0-0.8 [facility] Eosinophils [#/volume] in Blood by Automated count 0.19 10*3/uL 0-0.5 [facility] Basophils [#/volume] in Blood by Automated count 0.04 10*3/uL 0-0.2 [facility] Nucleated erythrocytes/100 leukocytes [Ratio] in Blood by Automated count 0 /100{WBCs} 0-0 [facility] ID Date Data Source [id number] 11/14/2020 01:43:47 PM [facility] Name Value Range Interpretation Code Description Data Lou rce(s) Supporting Document(s) Ammonia [Moles/volume] in Plasma 86 umol/L 16-60 [facility] ID Date Data Source [id number] 11/14/2020 08:19:36 AM [facility] Name Value Range Interpretation Code Description Data Lou rce(s) Supporting Document(s) Bicarbonate [Moles/volume] in Serum 21 mmol/L 22-29 [facility] Chloride [Moles/volume] in Serum or Plasma 99 mmol/L 98-107 [facility] Confirmed Creatinine [Mass/volume] in Serum or Plasma 0.65 mg/dL 0.70-1.20 [facility] Glucose [Mass/volume] in Serum or Plasma 97 mg/dL 70-140 [facility] Potassium [Moles/volume] in Serum or Plasma 3.0 mmol/L 3.4-5.1 L [facility] Confirmed Sodium [Moles/volume] in Serum or Plasma 130 mmol/L 136-145 [facility] Confirmed Urea nitrogen [Mass/volume] in Serum or Plasma 15 mg/dL 6-20 [facility] Anion gap 3 in Serum or Plasma 11 mmol/L 8-15 [facility] Confirmed Osmolality of Serum or Plasma by calculation 271 mosm/kg 275-300 [facility] Confirmed Creatinine/Urea nitrogen [Mass Ratio] in Serum or Plasma 22 [facility] Calcium [Mass/volume] in Serum or Plasma 7.8 mg/dL 8.6-10.0 [facility] Glomerular filtration rate/1.73 sq M pre dicted among non-blacks [Volume Rate/Area] in Serum or Plasma by Creatinine-based formula (MDRD) >6 0 [facility] Glomerular filtration rate/1.73 sq M pre dicted among blacks [Volume Rate/Area] in Serum or Plasma by Creatinine-based formula (MDRD) >60 [facility] ID Date Data Source [id number] 11/14/2020 08:31:17 AM EDT [facility] Name Value Range Interpretation Code Description Data Lou rce(s) Supporting Document(s) Leukocytes [#/volume] in Blood by Automated count 6.9 10*3/uL 4-10 [facility] Erythrocytes [#/volume] in Blood by Automated count 2.97 10*6/uL 4.6- 6.1 [facility] Hemoglobin [Mass/volume] in Blood 7.9 g/dL 13.5-18 [facility] Hematocrit [Volume Fraction] of Blood by Automated count 23.7 % 4 1-53 [facility] Erythrocyte mean corpuscular volume [Entitic volume] by Auto mated count 79.8 fL 80-96 [facility] Erythrocyte mean corpuscular hemoglobin [Entitic mass] by Automated count 26.5 pg 27-33 [facility] Erythrocyte mean corpuscular hemoglobin concentration [Mass/volume] by Automated count 33.2 g/dL 32.0-36.0 [facility] E[facility]throcyte distribution width [Ratio] by Automated count 18.9 % 11.5-14.5 [facility] Platelets [#/volume] in Blood by Automated count 99 10*3/uL 150-400 [facility] Confirmed Differential cell count method - Blood [facility] Neutrophils/100 leukocytes in Blood by Automated count 77 % [facility] Lymphocytes/100 leukocytes in Blood by Automated count 7 % [facility] Monocytes/100 leukocytes in Blood by Automated count 12 % [facility] Eosinophils/100 leukocytes in Blood by Automated count 3 % [facility] Basophils/100 leukocytes in Blood by Automated count 1 % [facility] Neutrophils [#/volume] in Blood by Automated count 5.45 10*3/uL 1.8-7 .0 [facility] Lymphocytes [#/volume] in Blood by Automated count 0.47 10*3/uL 1.2-4 .0 L [facility] Monocytes [#/volume] in Blood by Automated count 0.80 10*3/uL 0-0.8 [facility] Eosinophils [#/volume] in Blood by Automated count 0.18 10*3/uL 0-0.5 [facility] Basophils [#/volume] in Blood by Automated count 0.03 10*3/uL 0-0.2 [facility] Nucleated erythrocytes/100 leukocytes [Ratio] in Blood by Automated count 0 /100{WBCs} 0-0 [facility] ID Date Data Source [id number] 11/14/2020 11:09:27 AM [facility] Name Value Range Interpretation Code Description Data Lou rce(s) Supporting Document(s) Magnesium [Mass/volume] in Serum or Plasma 2.6 mg/dL 1.6-2.6 [facility] ID Date Data Source [id number] 11/14/2020 11:09:27 AM [facility] Value Range Interpretation Code Description Data Lou rce(s) Supporting Document(s) Phosphate [Mass/volume] in Serum or Plasma 1.6 mg/dL 2.5-4.5 [facility] ID Date Data Source [id number] 11/13/2020 11:52:58 PM [facility] Value Range Interpretation Code Description Data Lou rce(s) Supporting Document(s) ABO and Rh group [Type] in Blood [facility] Blood bank comment [facility] ID Date Data Source [id number] 11/13/2020 09:59:28 PM [facility] Value Range Interpretation Code Description Data Lou rce(s) Supporting Document(s) Sodium [Moles/volume] in Blood 132 mmol/L 136-145 [facility] Potassium [Moles/volume] in Blood 3.1 mmol/L 3.4-5.1 L [facility] Chloride [Moles/volume] in Blood 97 mmol/L 98-107 [facility] Carbon dioxide, total [Moles/volume] in Blood 21 mmol/L 22-29 [facility] Calcium.ionized [Moles/volume] in Blood 1.19 mmol/L 1.13-1.32 [facility] Glucose [Mass/volume] in Blood 115 mg/dL 70-140 [facility] Urea nitrogen [Mass/volume] in Blood 15 mg/dL 6-20 [facility] Creatinine [Mass/volume] in Blood 0.7 mg/dL 0.70-1.20 [facility] Hematocrit [Volume Fraction] of Blood 22 % 41-53 [facility] Hemoglobin [Mass/volume] in Blood by calculation 7.5 g/dL 13.5-18.0 [facility] ID Date Data Source [id number] 11/13/2020 09:59:57 PM EDT [facility] Name Value Range Interpretation Code Description Data Lou rce(s) Supporting Document(s) Leukocytes [#/volume] in Blood by Automated count 7.0 10*3/uL 4-10 [facility] Erythrocytes [#/volume] in Blood by Automated count 2.58 10*6/uL 4.6- 6.1 [facility] Hemoglobin [Mass/volume] in Blood 7.0 g/dL 13.5-18 [facility] Hematocrit [Volume Fraction] of Blood by Automated count 20.6 % 4 1-53 [facility] Called to and read back by Zeny cintron [employer] [id number] [place] 1477 Erythrocyte mean corpuscular volume [Entitic volume] by Auto mated count 79.5 fL 80-96 L [facility] Erythrocyte mean corpuscular hemoglobin [Entitic mass] by Automated count 27.1 pg 27-33 [facility] Erythrocyte mean corpuscular hemoglobin concentration [Mass/volume] by Automated count 34.0 g/dL 32.0-36.0 [facility] Erythrocyte distribution width [Ratio] by Automated count 19.9 % 11.5-14.5 [facility] Platelets [#/volume] in Blood by Automated count 102 10*3/uL 150-400 [facility] Differential cell count method - Blood [facility] Neutrophils/100 leukocytes in Blood by Automated count 78 % [facility] Lymphocytes/100 leukocytes in Blood by Automated count 7 % [facility] Monocytes/100 leukocytes in Blood by Automated count 13 % [facility] Eosinophils/100 leukocytes in Blood by Automated count 1 % [facility] Basophils/100 leukocytes in Blood by Automated count 1 % [facility] Neutrophils [#/volume] in Blood by Automated count 5.50 10*3/uL 1.8-7 .0 [facility] Lymphocytes [#/volume] in Blood by Automated count 0.47 10*3/uL 1.2-4 .0 L [facility] Monocytes [#/volume] in Blood by Automated count 0.89 10*3/uL 0-0.8 [facility] Eosinophils [#/volume] in Blood by Automated count 0.09 10*3/uL 0-0.5 [facility] Basophils [#/volume] in Blood by Automated count 0.04 10*3/uL 0-0.2 [facility] Nucleated erythrocytes/100 leukocytes [Ratio] in Blood by Automated count 0 /100{WBCs} 0-0 [facility] ID Date Data Source [id number] 11/13/2020 10:08:20 PM [facility] Value Range Interpretation Code Description Data Lou rce(s) Supporting Document(s) Prothrombin time (PT) 16.6 s 12.5-14.9 H [facility] INR in Platelet poor plasma by Coagulation assay 1.32 [facility] Routine intensity oral anticoagulation I NR is typically 2.0-3.0. Target INR must be clinically individualized. ID Date Data Source [id number] 11/13/2020 10:17:51 PM [facility] Value Range Interpretation Code Description Data Lou rce(s) Supporting Document(s) Lipase [Enzymatic activity/volume] in Serum or Plasma 44 U/L 13-6 0 [facility] ID Date Data Source [id number] 11/13/2020 10:17:51 PM [facility] Value Range Interpretation Code Description Data Lou rce(s) Supporting Document(s) Albumin [Mass/volume] in Serum or Plasma by Bromocresol green (BCG) dye binding method 3.0 g/dL 3.5-5.2 [facility] Bilirubin.total [Mass/volume] in Serum or Plasma 1.7 mg/dL <1.2 [facility] Calcium [Mass/volume] in Serum or Plasma 7.8 mg/dL 8.6-10.0 L [facility] Chloride [Moles/volume] in Serum or Plasma 97 mmol/L 98-107 [facility] Creatinine [Mass/volume] in Serum or Plasma 0.66 mg/dL 0.70-1.20 L [facility] Glucose [Mass/volume] in Serum or Plasma 115 mg/dL 70-140 [facility] Alkaline phosphatase [Enzymatic activity/volume] in Serum or Plasma 127 U/L 40-129 [facility] Potassium [Moles/volume] in Serum or Plasma 3.1 mmol/L 3.4-5.1 L [facility] Protein [Mass/volume] in Serum or Plasma 5.5 g/dL 6.4-8.3 L [facility] Sodium [Moles/volume] in Serum or Plasma 128 mmol/L 136-145 [facility] Aspartate aminotransferase [Enzymatic activity/volume] in Serum or Plasma 189 U/L <40 [facility] Urea nitrogen [Mass/volume] in Serum or Plasma 16 mg/dL 6-20 [facility] Osmolality of Serum or Plasma by calculation 269 mosm/kg 275-300 [facility] Creatinine/Urea nitrogen [Mass Ratio] in Serum or Plasma 24 [facility] Bicarbonate [Moles/volume] in Serum 22 mmol/L 22-29 [facility] Alanine aminotransferase [Enzymatic activity/volume] in Seru m or Plasma 74 U/L <41 [facility] Anion gap 3 in Serum or Plasma 9 mmol/L 8-15 [facility] Glomerular filtration rate/1.73 sq M pre dicted among non-blacks [Volume Rate/Area] in Serum or Plasma by Creatinine-based formula (MDRD) >6 0 [facility] Glomerular filtration rate/1.73 sq M pre dicted among blacks [Volume Rate/Area] in Serum or Plasma by Creatinine-based formula (MDRD) >60 [facility] ID Date Data Source [id number] 11/16/2020 07:33:03 AM EDT [facility] Name Value Range Interpretation Code Description Data Lou rce(s) Supporting Document(s) ABO and Rh group [Type] in Blood [facility] Blood group antibody screen [Presence] in Serum or Plasma [facility] Performed at [facility], Raquel brody, Geeta, [id number] ID Date Data Source [id number] 11/13/2020 03:31:00 PM EDT [facility] Name Value Range Interpretation Code Description Data Lou rce(s) Supporting Document(s) SARS coronavirus 2 RNA [Presence] in Res piratory specimen by TOYA with probe detection NEGATIVE [facility] This lab was ordered by [facility] a nd reported by [facility]. Procedure Social History Code Duration Value Status Description Data Source(s ) Alcohol intake 11/16/2020 12:00:00 AM EDT Current drinker of al cohol (finding) completed Current drinker of alcohol (finding) [facility] Tobacco use and exposure 11/16/2020 12:00:00 AM EDT Never used co mpleted Never used [facility] Cigarette pack-years 11/16/2020 12:00:00 AM EDT [facility] Cigarettes smoked current (pack per day) - Reported 11/17/19 12:00:00 AM EDT UN[facility] Smoking 11/16/2020 12:00:00 AM EDT Current every day smoker co mpleted Current every day smoker [facility] Vital Signs ID Date Data Source UNK Name Value Range Interpretation Code Description Data Source(s) Body weight 2480 [oz_av] 2480 [oz_av] EUREKA ([facility]) Diastolic blood pressure 78 mm[Hg] 78 mm[Hg] EUREKA ([facility]) Body height 65 [in_i] 65 [in_i] EUREKA ([facility]) Body mass index (BMI) [Ratio] 25.8 kg/m2 25.8 k g/m2 SUKI ([facility]) Systolic blood pressure 121 mm[Hg] 121 mm[Hg] Venkata ROBBINS ([facility]) ID Date Data Source [id number] 12/14/2020 04:10:11 PM EDT [facility] Name Value Range Interpretation Code Description Data Source(s) WEIGHT RECORDED 151.3 lb 151.3 lb [facility] Body height Measured 66 in 66 in [facility] TRANSFER FROM [facility] ID Date Data Source [id number] 12/01/2020 11:10:43 AM [facility] Name Value Range Interpretation Code Description Data Source(s) TRANSFER FROM [facility] Patient Treatment Plan of Care Planned Activity Planned Date Details Description Data Source (s) Lisinopril 5 MG Oral Tablet 12/12/2020 12:00:00 AM [facility] Thiamine 100 MG Oral Tablet 12/12/2020 12:00:00 AM [facility] Acetaminophen 325 MG Oral Tablet 12/12/2020 12:00:00 AM [facility] Acetaminophen 325 MG Oral Tablet 12/10/2020 04:46:26 PM [facility] Folic Acid 1 MG Oral Tablet 2020 12:00:00 AM [facility] Vitamin B 12 0.25 MG Oral Tablet 2020 12:00:00 AM [facility] pantoprazole 40 MG Delayed Release Oral Tablet 11/17/2020 12:00:00 AM [facility] Lisinopril 30 MG Oral Tablet [facility] duloxetine 60 MG Delayed Release Oral Capsule SUKI ([facility]) Clindamycin 300 MG Oral Capsule SUKI ([facility])
[2021-04-05 02:30] LABS: BASO % 0.4 % (0.0-1.0); EOS # 0.1 10^3/uL (0.0-0.5); EOS % 2.3 % (0.0-3.0); LYMPH # 0.8 10^3/uL (1.5-5.0); LYMPH % 14.8 % (24.0-44.0); MEAN CORPUSCULAR HEMOGLOBIN 20.7 pg (27.0-33.0); MEAN CORPUSCULAR HGB CONC 28.5 g/dl (32.0-36.5); MEAN CORPUSCULAR VOLUME 72.8 fl (80.0-96.0); MONO # 0.8 10^3/uL (0.0-0.8); MONO % 14.6 % (2.0-8.0); NEUTROPHILS # 3.8 10^3/uL (1.5-8.5); NEUTROPHILS % 67.5 % (36.0-66.0); PLATELET COUNT, AUTOMATED 151 10^3/uL (150-450); RED BLOOD COUNT 2.46 10^6/uL (4.30-6.10); WHITE BLOOD COUNT 5.6 10^3/uL (4.0-10.0)
--- NOTE | 2021-04-05 02:33 | HPEPDOC ---
[facility] Medical History & Physical Date of Admission Apr 05, 2021 Date of Service: Apr 05, 2021 History and Physical CHIEF COMPLAINT: R ear ache HISTORY OF PRESENT ILLNESS: 40 yo M with a PMHx of etoh use disorder (drinks 10 beers daily), alcohol withdrawal seizures and delirium tremens, alcoholic gastritis, and acute blood loss anemia presented to the ER today complaining of right ear pain as well as dysphagia. Upon evaluation of his blood work it was noticed that he had a hemoglobin of 2.6. Patient denies hematemesis and does endorse a 2-day history of dark stool which is resolved prior to arrival to the ER. Patient was treated in November 2020 at [facility] where he underwent an EGD for similar presentation. It showed severe gastritis without esophageal varices according to records obtained from [facility] by our ER provider. Patient has not followed up with gastroenterology since then and has not been taking pantoprazole nor has he been taking suckle fate. He continues to actively drink and endorses drinking approximately 10 beers per day. Since we have no GI service available at this time, I requested the ER provider transfer patient to higher level of care where GI consultation could be obtained. I personally requested a consult from gastroenterology at [facility] but this was declined. Dr. May was consulted from the ER and recommended CT angiography of the abdomen pelvis. It did not reveal findings consistent with esophageal varices, but did show an indeterminate hypodensity in the right hepatic lobe. Given that the patient is not having active hemoptysis, and his hemoglobin was increasing appropriately with a each unit transfused (serial CBCs were performed q4h) it was recommended to admit the patient with surgery consultation per Dr. May. Patient was started on BID IV pantoprazole as well as sucralfate. Further per patient's initial presentation, he complained of severe right earache as well as a painful swelling on the right side of his face below the jawline possibly overlying the parotid. Patient also reports dysphagia as well as subjective fevers and chills occasionally. He reports his symptoms have been ongoing for approximately 1-1/2 months. He is a frequent camper and that he perhaps had an insect stuck in his ear. We will obtain a CT neck with IV contrast given the patient's smoking history, and start the patient on empiric clindamycin while we await the results of his throat culture as well as blood cultures. PAST MEDICAL HISTORY: Alcoholic gastritis with hemorrhage HTN Melena Hyperammonemia PAST SURGICAL HISTORY: Patient reports no prior surgical history SOCIAL HISTORY: Patient is an active smoker approximately 1 pack/day Alcohol use disorder Denies illicit drug use FAMILY HISTORY: Reviewed with patient, reports no pertinent family history ALLERGIES: Please see below. REVIEW OF SYSTEMS: 10 point ROS conducted, relevant findings are noted in the HPI HOME MEDICATIONS: Please see below. PHYSICAL EXAMINATION: VITAL SIGNS: please see below General: NAD, comfortable,, jaundice HEENT: PERRLA, EOMI, lateral icterus. L ear external canal wnl, no masses, lesions on exam of L TM. R ear examined, small adherent dark mass on anterior aspect of auditory canal, unable to remove with curette. TM intact. Neck: Approximately 4 cm diameter swelling below the right parotid Respiratory: lungs CTAB, no wheeze, no rales, no crackles CVS: RRR, normal S1, S2, no murmurs Abdo: soft, no masses, no hepatosplenomegaly, BS+, no rebound tenderness Extremities: no edema, pulses 2+ MSK: no joint deformities, normal ROM Skin: Jaundiced appearance Neuro: no focal neuro deficits, moving all 4 extremities, CN2-12 intact. Strength 5/5 in all 4 extremities. No nystagmus. Psych: calm, cooperative, AAO x 3 LABORATORY DATA: See below. IMAGING: CTA abdo pelvis w IV contrast (04/04/21): Liver surface is nodular suspicious for cirrhosis. Indeterminate hyperdensity in the right hepatic lobe measuring 2.[address] or MRI with hepatic protocol can be obtained for further evaluation. KUB (04/03/21): Nonspecific bowel gas pattern. MICROBIOLOGY: Please see below. ASSESSMENT: 40-year-old male with a past medical history of alcohol use disorder , delirium tremens, alcoholic withdrawal seizures, acute blood loss anemia and severe gastritis presented to the ER with a hemoglobin of 2.6 without complaints of hemoptysis. His melena had resolved several days prior to admission. He also reports right-sided earache with odynophagia as well as a swelling on the right side of of his neck. An attempt to transfer was made to [facility] or at least a GI consultation however the GI consult was refused. Transfer did not occur as [facility] had no available beds. Dr. May was consulted from the ER and recommended trending the hemoglobin for 8 hours while the patient was being transfused. As the hemoglobin had improved appropriately with each transfused unit and the patient was not visibly having hematemesis it was decided to admit the patient for surgical consultation. Strep throat screen and throat culture were ordered as well as blood cultures. Patient was started on empiric IV clindamycin pending CT imaging of the neck. . PLAN: Acute blood loss anemia 2/2 suspected alcoholic gastritis - Hgb 2.6 on arrival, increased to 4.7 s/p 2 units pRBC - last EGD in 11/2020 at [facility], showing severe alcoholic gastritis, withou t esophageal varices - CTA abdo/pelvis in ER shows no esophageal varices - oredered 4 units pRBC - continue with serial CBC - start PPI IV 40 mg BID - start sucralfate ACHS - surgical consult placed. Jaundice likely 2/2 early cirrhosis - T bili 1.1/D bili 0.4 - obtain liver US ETOH use disorder - start CIWA protocol - PFS consult R ear ache/odynophagia/R neck mass - R ear auditory canal shows a ~ 5mm dark adherent mass at anterior aspect, likely cerumen, unable to be removed with curette. pain experiences pain on manipulation - obtain strep screen/culture - obtain CT neck w IV contrast - start empiric clindamycin - consult ENT as appropriate HTN - resume lisinopril Hypokalemia - replace DVT ppx: SCDs. TEDs. Avoid chemoprophylaxis due to acute blood loss anemia. Vital Signs Vital Signs Date Time Temp Pulse Resp B/P (MAP) Pulse Ox O2 Delivery O2 Flow Rate FiO2 04/05/21 01:52 86 150/84 04/05/21 01:45 98.3 16 100 Room Air Laboratory Data Labs 24H Laboratory Tests 2 04/04/21 15:57: Immature Granulocyte % (Auto) 0.5, Neutrophils (%) (Auto) 66.7H, Lymphocytes (%) (Auto) 19.6L, Monocytes (%) (Auto) 11.2H, Eosinophils (%) (Auto) 2.0, Basophils (%) (Auto) 0.0, Neutrophils # (Auto) 3.7, Lymphocytes # (Auto) 1.1L, Monocytes # (Auto) 0.6, Eosinophils # (Auto) 0.1, Basophils # (Auto) 0.0, Nucleated Red Blood Cells % (auto) 0.9H, Anion Gap 7L, Glomerular Filtration Rate > 60.0, Calcium Level 8.4L, Total Bilirubin 1.1H, Direct Bilirubin 0.4H, Aspartate Amino Transf (AST/SGOT) 54H, Alanine Aminotransferase (ALT/SGPT) 32, Alkaline Phosphatase 136H, Total Creatine Kinase 35L, Creatine Kinase MB < 1.0, Creatine Kinase MB Relative Index 2.86, Troponin I < 0.02, Total Protein 6.6, Albumin 3.0L, Albumin/Globulin Ratio 0.8, Lipase 279, Ethyl Alcohol Level 0.088H 04/04/21 17:06: Prothrombin Time 17.1H, Prothromb Time International Ratio 1.35, Activated Partial Thromboplast Time 34.9, Coronavirus (COVID-19)(PCR) NEGATIVE, Influenza Type A (RT-PCR) NEGATIVE, Influenza Type B (RT-PCR) NEGATIVE, Respiratory Syncytial Virus (PCR) NEGATIVE 04/04/21 21:16: Nucleated Red Blood Cells % (auto) 1.2H 04/04/21 23:56: Immature Granulocyte % (Auto) 0.3, Neutrophils (%) (Auto) 64.8, Lymphocytes (%) (Auto) 15.4L, Monocytes (%) (Auto) 16.3H, Eosinophils (%) (Auto) 2.7, Basophils (%) (Auto) 0.5, Neutrophils # (Auto) 3.8, Lymphocytes # (Auto) 0.9L, Monocytes # (Auto) 1.0H, Eosinophils # (Auto) 0.2, Basophils # (Auto) 0.0, Nucleated Red Blood Cells % (auto) 0.9H CBC/BMP Laboratory Tests 04/04/21 15:57 04/04/21 21:16 04/04/21 23:56 Home Medications Scheduled Escitalopram Oxalate (Lexapro) 20 Mg Tablet, 20 MG PO DAILY Folic Acid (Folic Acid) 1 Mg Tablet, 1 MG PO DAILY Gabapentin (Gabapentin) 600 Mg Tablet, 600 MG PO BID Lisinopril (Lisinopril) 30 Mg Tablet, 30 MG PO DAILY Pantoprazole Sodium (Pantoprazole Sodium) 40 Mg Tablet.dr, 40 MG PO DAILY Allergies Coded Allergies: Penicillins (Verified Allergy, Unknown, 11/03/18) amoxicillin (Verified Allergy, Unknown, 11/03/18) clavulanic acid (Verified Allergy, Unknown, 11/03/18) diphenhydramine (Verified Allergy, Unknown, 11/03/18) ibuprofen (Verified Allergy, Unknown, 11/03/18) naproxen (Verified Allergy, Unknown, 11/03/18) NANY RAJAN MD Apr 05, 2021 02:33
[2021-04-05 02:35] LABS: HEMOGLOBIN 5.1 g/dl (13.5-17.5)
[2021-04-05 02:36] LABS: HEMATOCRIT 17.9 % (42.0-52.0)
[2021-04-05] MEDS: GABAPENTIN 300 MG CAP PO SCH ×3 (03:39→20:38)
[2021-04-05] MEDS ORDERED: INFLUENZA QUADRIVALENT PF VACCINE 0.5ML SYRINGE IM SCH (03:45)
[2021-04-05] MEDS ORDERED: CLINDAMYCIN 600 MG in IV 1 EA IV SCH (04:00)
[2021-04-05] MEDS: CLINDAMYCIN 600 MG in IV 1 EA IV SCH ×4 (04:04→22:53)
[2021-04-05 05:45] LABS: BASO % 0.5 % (0.0-1.0); EOS # 0.2 10^3/uL (0.0-0.5); EOS % 2.7 % (0.0-3.0); LYMPH # 0.7 10^3/uL (1.5-5.0); MEAN CORPUSCULAR HEMOGLOBIN 22.1 pg (27.0-33.0); MEAN CORPUSCULAR VOLUME 73.7 fl (80.0-96.0); MONO # 0.8 10^3/uL (0.0-0.8); MONO % 14.9 % (2.0-8.0); NEUTROPHILS # 3.8 10^3/uL (1.5-8.5); NEUTROPHILS % 68.2 % (36.0-66.0); PLATELET COUNT, AUTOMATED 159 10^3/uL (150-450); RED BLOOD COUNT 2.85 10^6/uL (4.30-6.10); WHITE BLOOD COUNT 5.5 10^3/uL (4.0-10.0)
[2021-04-05 06:12] LABS: HEMOGLOBIN 6.3 g/dl (13.5-17.5)
[2021-04-05 06:15] LABS: ALBUMIN 2.7 GM/DL (3.2-5.2); ALT/SGPT 30 U/L (12-78); BILIRUBIN,TOTAL 6.3 MG/DL (0.2-1.0); BLOOD UREA NITROGEN 8 MG/DL (7-18); CARBON DIOXIDE LEVEL 25 MEQ/L (21-32); CHLORIDE LEVEL 106 MEQ/L (98-107); CREATININE FOR GFR 0.44 MG/DL (0.70-1.30); GLOMERULAR FILTRATION RATE > 60.0 (>60); GLUCOSE, FASTING 93 MG/DL (70-100); MAGNESIUM LEVEL 2.5 MG/DL (1.8-2.4); POTASSIUM SERUM 3.7 MEQ/L (3.5-5.1); SODIUM LEVEL 138 MEQ/L (136-145); TOTAL PROTEIN 5.8 GM/DL (6.4-8.2)
--- NOTE | 2021-04-05 06:37 | REPVR ---
PROCEDURE INFORMATION: Exam: CT Neck Without Contrast Exam date and time: 04/05/2021 5:44 AM Age: 40 years old Clinical indication: Mass, lump, or swelling in neck; Patient HX: Bb placed on right side of neck superior to swelling; Additional info: R neck swelling TECHNIQUE: Imaging protocol: Computed tomography images of the neck without contrast. Radiation optimization: All CT scans at this facility use at least one of these dose optimization techniques: automated exposure control; mA and/or kV adjustment per patient size (includes targeted exams where dose is matched to clinical indication); or iterative reconstruction. COMPARISON: CT Spine,cervical w/o contrast 02/22/2019 2:05 PM FINDINGS: Paranasal sinuses: There is mild to moderate left maxillary sinus mucosal thickening. Nasopharynx: Unremarkable. Oropharynx: Unremarkable. No significant tonsillar enlargement. Hypopharynx: Unremarkable. Larynx: There is significant asymmetric soft tissue prominence likely with edema of the right tonsillar bed extending inferiorly inseparable from the right pharyngo epiglottic fold with asymmetry and opacification of the right vallecula as well as the right piriform sinus and right aryepiglottic fold. There is possible extension to the right false vocal cord. Retropharyngeal space: Unremarkable. Submandibular/Parotid glands: Normal. Glands are normal in size. Thyroid: Normal. No enlarged or calcified nodules. Lymph nodes: There are enlarged right cervical lymph nodes the largest is at level 2 a measuring 2.6 x 2.2 centimetres. Trachea: Visualized trachea is unremarkable. Lungs: Unremarkable as visualized. Bones/joints: Unremarkable. No acute fracture. Soft tissues: Unremarkable. No significant soft tissue swelling. IMPRESSION: Significant asymmetric soft tissue prominence likely with some edema in the right tonsillar bed extending inferiorly into the right pharyngoepiglottic and aryepiglottic folds with asymmetric opacification / narrowing of the right vallecula and piriform sinus with possible extension into the right false vocal cord. Findings could be on the basis of infectious/inflammatory etiology such as tonsillitis with inflammation involving the oropharynx, hypopharynx and supraglottic larynx. However infiltrative neoplastic etiology cannot be excluded. Correlation with clinical history and symptoms is needed. Prominent right cervical lymph nodes could be reactive. Follow-up is recommended. Electronically signed by: Tom Gillespie On 04/05/2021 06:36:38 AM
[2021-04-05] MEDS: SUCRALFATE SUSP 1GM/10ML UD PO SCH ×4 (07:30→20:37)
--- NOTE | 2021-04-05 08:11 | REP ---
INDICATION: jaundice, hyperbilirubinemia COMPARISON: None. TECHNIQUE: Real time camacho scale ultrasound examination using curved array transducer. FINDINGS: Liver appears diffusely heterogeneous and includes a complex thick walled septated cystic structure in the right lobe measuring 2.3 x 1.8 x 2.2 cm which cannot be further characterized by ultrasound. Pancreas is incompletely evaluated due to interposed bowel gas. The gallbladder is normal and without gallstones, wall thickening, or pericholecystic fluid. No biliary ductal dilatation is appreciated and the common bile duct measures 2.5 mm diameter. Right kidney is normal in reniform shape without hydronephrosis and measures 13.3 x 5.7 x 5.1 cm. No ascites in the visualized right upper quadrant. IMPRESSION: Complex lesion in the right hepatic lobe measures 2.3 cm diameter. Underlying findings to suggest hepatocellular disease also identified. Consider follow-up pre and postcontrast CT of the abdomen for further investigation. <Electronically signed by Sher Kurtz > 04/05/21 [id number]
[2021-04-05] MEDS: PANTOPRAZOLE 40MG VIAL (C9113 PER 1) IV SCH ×2 (09:08→20:38)
[2021-04-05] MEDS: MULTIVITAMINS/MINERALS THERAP 1 TAB PO SCH (09:08)
[2021-04-05] MEDS: FOLIC ACID 1 MG TAB PO SCH (09:09)
[2021-04-05] MEDS: ESCITALOPRAM OXALATE 10 MG TAB (LEXAPRO) PO SCH (09:09)
--- NOTE | 2021-04-05 17:36 | IPNPDOC ---
Text Note Date of Service The patient was seen on 04/05/21. NOTE Subjective: 40-year-old male presented to emergency room department with complaints of right neck swelling as well as hard time swallowing. CT scan showed right tonsillar edema. He was also noted to have a hemoglobin of 2.6 g/dL. Presently, he denied chest pain, shortness of breath, abdominal pain, nausea, vomiting, problem with urination and bowel movements. He denies feeling anxious, having auditory/visual/tactile hallucinations. Patient reports having a upper and lower endoscopy done at [facility] for drop in hemoglobin during the summer. He was told no overt lesion was appreciated and there is part of the small bowel that was not appropriately visualized due to the length of the scope. Review of systems: 10 point review of system was negative except for what is noted in the HPI Physical exam: Vitals: See below General: Lying in bed, no acute distress, obese Head/Neck/Throat: Trachea midline, mucous membranes moist. Right ear canal showed a 3 to 4 mm red lesion at the 3 o'clock position, patient did not allow for further evaluation due to reported pain. Right cervical adenopathy apprecia ashley Eyes: Sclera anicteric, no erythema or discharge appreciated bilaterally Thorax: Normal respiratory effort on room air, lungs clear to auscultation bilaterally, no wheezes/rales/rhonchi Cardiovascular: Normal rate, regular rhythm, normal S1, S2; 2+ pedal pulses appreciated Abdomen: Bowel sounds present, soft/nontender/nondistended Genitourinary: No CVA tenderness, no Carey in place Musculoskeletal: Moving all extremities, no edema Skin: Warm, dry Neurologic: AAOx3, speech fluent and goal-directed, no focal deficits, grossly intact Labs: See below Imaging: Please see imaging section Assessment/plan: 40-year-old male with past medical history of alcohol use disorder, acute blood loss anemia, and severe gastritis presented to the emergency room department with complaints of dysphagia. In the emergency room department he was noted to have a hemoglobin of 2.6. He denied hemoptysis, however 2 days prior to admission reported having 2 days of melena which have resolved. An attempt to transfer patient to [facility] for a GI consultation was made on admission but it was refused. #Acute blood loss anemia -GI source is suspected. Patient reports his upper and lower endoscopy done in summer but it did not show any overt bleeding, however, he was told that there was loops of small bowel that may have not been visualized appropriately. His last EGD according to ED records was done on 12/08 noted severe alcoholic gastritis without esophageal varices. -His hemoglobin has responded to each transfusion that was given. He is status post 5 units of packed red blood cells. -Continue to trend hemoglobin every 8 hours. -Surgical consult pending for possible repeat endoscopic evaluation #Tonsillitis -CT scan of the head and neck noted right tonsillar edema extending inferiorly into the right pharyngoepiglottic and aryepiglottic folds with asymmetric opacification / narrowing of the right vallecula and piriform sinus with possible extension into the right false vocal cord. and possibly reactive lymphadenopathy. There is no traction of the airways. Discussed case with Dr. Figueroa of ENT team who recommended patient be started on dexamethasone and antibiotics. #Complex liver lesion -2.3 cm right hepatic lobe complex lesion was appreciated on ultrasound. A CT scan with and without contrast will be done for further evaluation. #Transaminitis -Likely secondary to his alcohol use. Continue to monitor liver function. #HTN -Continue with lisinopril #Alcohol use disorder -CIWA this morning was 0. Continue with CIWA protocol, lorazepam as needed, thiamine and folic acid. #DVT Prophylaxis -SCDs Disposition: Pending surgical consultation. VS,Fishbone, I+O VS, Fishbone, I+O Laboratory Tests 04/04/21 21:16 04/04/21 23:56 04/05/21 02:23 04/05/21 05:15 Vital Signs Date Time Temp Pulse Resp B/P (MAP) Pulse Ox O2 Delivery O2 Flow Rate FiO2 04/05/21 16:00 98.2 85 18 140/85 (103) 98 Room Air I&O- Last 24 Hours up to 6 AM 04/05/21 06:00 Intake Total 2020 ml Output Total 250 ml Balance 1770 ml МАРИЯ BLACK M.D. Apr 05, 2021 17:18
[2021-04-05 17:44] LABS: HEMOGLOBIN 7.7 g/dl (13.5-17.5)
[2021-04-05] MEDS ORDERED: ISOVUE-370 76% 100ML VIAL As Ordered ONE (18:03)
[2021-04-05] MEDS: dexameTHASONE 4 MG/ML 1ML VIAL (J1100 PER 1MG) IV SCH (18:36)
--- NOTE | 2021-04-05 19:37 | REPVR ---
PROCEDURE INFORMATION: Exam: CT Abdomen Without And With Contrast Exam date and time: 04/05/2021 6:27 PM Age: 40 years old Clinical indication: Abnormal findings; Abnormal radiologic finding of the abdomen; Radiologic exam and body structure: US. . . Lesion seen; Additional info: Hepatic lesion seen on u/s. Yfn - CT abd w/without cont TECHNIQUE: Imaging protocol: Computed tomography images of the abdomen without and with intravenous contrast. Radiation optimization: All CT scans at this facility use at least one of these dose optimization techniques: automated exposure control; mA and/or kV adjustment per patient size (includes targeted exams where dose is matched to clinical indication); or iterative reconstruction. Contrast material: ISO 370; Contrast volume: 75 ml; Contrast route: INTRAVENOUS (IV); COMPARISON: CT ANGIO ABD/PEL 04/04/2021 7:43 PM FINDINGS: Lungs: Very small patchy and hazy areas of density at the left lung base. The lung bases are otherwise clear. Heart: The heart is top-normal in size. Liver: There is mild to moderate hepatomegaly and slight lobulation of the margins of the liver. There is fatty infiltration of the liver. There is moderate splenomegaly and this has developed since 2019. There is a small amount of free fluid along the anterior surface of the liver. There is a 2.5 cm lobulated cyst of the midportion of the liver. Gallbladder and bile ducts: Normal appearing gallbladder. Normal common bile duct. Pancreas: Normal appearing pancreas. Adrenals: Normal size. Kidneys and ureters: There is no evidence of calcified stone right or left kidney. There is opacification of the kidneys and normal size renal arteries. Stomach and bowel: There are several diverticula of the left colon. Appendix: Normal appendix. Intraperitoneal space: There is no evidence of pneumoperitoneum. Lymph nodes: There is no evidence of lymphadenopathy. Vasculature: There is opacification of the SMV and the SMA. There is opacification of the aorta which is normal in size. IMPRESSION: 1. 2.5 cm lobulated cyst midportion of the liver probably a benign cyst. This is seen in 2019. 2. Mild to moderate hepatomegaly with fatty infiltration of the liver and slight lobulation of the margins. There is a small amount of ascites along the anterior surface of the liver. 3. Moderate splenomegaly which has developed since 2019 exam. Electronically signed by: Vernon Kelly On 04/05/2021 19:36:50 PM
[2021-04-06] VITALS: BP 121/64
[2021-04-06] MEDS: dexameTHASONE 4 MG/ML 1ML VIAL (J1100 PER 1MG) IV SCH ×2 (02:54→09:12)
[2021-04-06 04:00] VITALS: BP 125/63
[2021-04-06 04:31] LABS: HEMOGLOBIN 8.2 g/dl (13.5-17.5); MEAN CORPUSCULAR HEMOGLOBIN 23.1 pg (27.0-33.0); MEAN CORPUSCULAR HGB CONC 30.4 g/dl (32.0-36.5); MEAN CORPUSCULAR VOLUME 76.1 fl (80.0-96.0); PLATELET COUNT, AUTOMATED 162 10^3/uL (150-450); RED BLOOD COUNT 3.55 10^6/uL (4.30-6.10); WHITE BLOOD COUNT 7.6 10^3/uL (4.0-10.0)
[2021-04-06] MEDS: CLINDAMYCIN 600 MG in IV 1 EA IV SCH ×4 (04:33→22:45)
[2021-04-06 04:57] LABS: ALBUMIN 2.7 GM/DL (3.2-5.2); ALT/SGPT 29 U/L (12-78); BILIRUBIN,TOTAL 2.9 MG/DL (0.2-1.0); BLOOD UREA NITROGEN 6 MG/DL (7-18); CALCIUM LEVEL 8.6 MG/DL (8.5-10.1); CARBON DIOXIDE LEVEL 24 MEQ/L (21-32); CHLORIDE LEVEL 104 MEQ/L (98-107); CREATININE FOR GFR 0.48 MG/DL (0.70-1.30); GLOMERULAR FILTRATION RATE > 60.0 (>60); GLUCOSE, FASTING 142 MG/DL (70-100); PHOSPHORUS LEVEL 2.2 MG/DL (2.5-4.9); POTASSIUM SERUM 3.6 MEQ/L (3.5-5.1); SODIUM LEVEL 136 MEQ/L (136-145); TOTAL PROTEIN 6.6 GM/DL (6.4-8.2)
[2021-04-06 05:06] LABS: INR 1.35; PARTIAL THROMBOPLASTIN TIME 34.8 SECONDS (25.9-37.0); PROTHROMBIN TIME 17.1 SECONDS (12.7-14.5)
[2021-04-06 08:00] VITALS: BP 143/73
[2021-04-06] MEDS: THIAMINE 100 MG TAB PO SCH ×2 (09:00→20:03)
[2021-04-06] MEDS: MULTIVITAMINS/MINERALS THERAP 1 TAB PO SCH (09:00)
[2021-04-06] MEDS: PANTOPRAZOLE 40MG VIAL (C9113 PER 1) IV SCH ×2 (09:00→20:02)
[2021-04-06] MEDS: GABAPENTIN 300 MG CAP PO SCH ×2 (09:00→20:03)
[2021-04-06] MEDS: SUCRALFATE SUSP 1GM/10ML UD PO SCH ×4 (09:10→20:03)
[2021-04-06] MEDS: FOLIC ACID 1 MG TAB PO SCH (09:10)
[2021-04-06] MEDS: ESCITALOPRAM OXALATE 10 MG TAB (LEXAPRO) PO SCH (09:10)
[2021-04-06] MEDS ORDERED: INFLUENZA QUADRIVALENT PF VACCINE 0.5ML SYRINGE IM ONE (11:00)
[2021-04-06 12:00] VITALS: BP 134/63
[2021-04-06] MEDS ORDERED: dexameTHASONE 20MG/5ML VIAL (J1100 PER 1MG) IV ONE (12:00)
[2021-04-06 16:00] VITALS: BP 122/76
[2021-04-06] MEDS ORDERED: POTASSIUM CHLORIDE 10MEQ SR TABLET PO ONE (17:30)
--- NOTE | 2021-04-06 17:33 | IPNPDOC ---
Text Note Date of Service The patient was seen on 04/06/21. NOTE Subjective: 40-year-old male presented to emergency room department with complaints of right neck swelling as well as hard time swallowing. CT scan showed right tonsillar edema. He was also noted to have a hemoglobin of 2.6 g/dL. Presently, he denied chest pain, shortness of breath, abdominal pain, nausea, vomiting, problem with urination and bowel movements. No acute events reported overnight. Review of systems: 10 point review of system was negative except for what is noted in the HPI Physical exam: Vitals: See below General: Lying in bed, no acute distress, obese Head/Neck/Throat: Trachea midline, mucous membranes moist. Right cervical adenopathy appreciated Eyes: Sclera anicteric, no erythema or discharge appreciated bilaterally Thorax: Normal respiratory effort on room air, lungs clear to auscultation bilaterally, no wheezes/rales/rhonchi Cardiovascular: Normal rate, regular rhythm, normal S1, S2; 2+ pedal pulses appreciated Abdomen: Bowel sounds present, soft/nontender/nondistended Genitourinary: No CVA tenderness, no Carey in place Musculoskeletal: Moving all extremities, no edema Skin: Warm, dry Neurologic: AAOx3, speech fluent and goal-directed, no focal deficits, grossly intact Labs: See below Imaging: Please see imaging section Assessment/plan: 40-year-old male with past medical history of alcohol use disorder, acute blood loss anemia, and severe gastritis presented to the emergency room department with complaints of dysphagia. In the emergency room department he was noted to have a hemoglobin of 2.6. He denied hemoptysis, however 2 days prior to admission reported having 2 days of melena which have resolved. An attempt to transfer patient to [facility] for a GI consultation was made on admission but it was refused. #Acute blood loss anemia -GI source is suspected. Patient reports his upper and lower endoscopy done in summer but it did not show any overt bleeding, however, he was told that there was loops of small bowel that may have not been visualized appropriately. His last EGD according to ED records was done on 12/08 noted severe alcoholic gastritis without esophageal varices. -His hemoglobin has responded to each transfusion that was given. He is status post 5 units of packed red blood cells. -Spoke to surgical team, no acute interventions planned during hospitalization he'll likely need capsule and/or push endoscopy that can be done as an outpatient. #Tonsillitis -CT scan of the head and neck noted right tonsillar edema extending inferiorly into the right pharyngoepiglottic and aryepiglottic folds with asymmetric opacification / narrowing of the right vallecula and piriform sinus with possible extension into the right false vocal cord. and possibly reactive lymphadenopathy. There is no traction of the airways. Discussed case with Dr. Figueroa of ENT team who recommended patient be started on dexamethasone and antibiotics. ENT to evaluate patient today as patient continues to have dysphagia. #Benign liver lesion - appreciated on repeat CT scan of the abdomen with IV contrast. #Transaminitis -Likely secondary to his alcohol use. Continue to monitor liver function. #HTN -Continue with lisinopril #Alcohol use disorder -CIWA this morning was 0. Continue with CIWA protocol, lorazepam as needed, thiamine and folic acid. #DVT Prophylaxis -SCDs Disposition: Pending ENT consultation VS,Fishbone, I+O VS, Fishbone, I+O Laboratory Tests 04/06/21 04:10 Vital Signs Date Time Temp Pulse Resp B/P (MAP) Pulse Ox O2 Delivery O2 Flow Rate FiO2 04/06/21 16:00 88 122/76 04/06/21 16:00 98.8 18 100 Room Air I&O- Last 24 Hours up to 6 AM 04/06/21 06:00 Intake Total 1270 ml Output Total 0 ml Balance 1270 ml МАРИЯ BLACK M.D. Apr 06, 2021 17:31
[2021-04-06 20:00] VITALS: BP 135/64
[2021-04-06 20:48] LABS: PERCENT SATURATION 3.6 % (19.7-50.0)
[2021-04-06 20:56] LABS: FOLATE 12.3 NG/ML (>5.4)
[2021-04-06] MEDS: FERROUS SULFATE 325MG TAB PO SCH (22:45)
[2021-04-07] VITALS: BP 126/74
[2021-04-07] MEDS: CLINDAMYCIN 600 MG in IV 1 EA IV SCH ×2 (03:58→10:14)
[2021-04-07 04:00] VITALS: BP 104/71
[2021-04-07 05:51] LABS: HEMATOCRIT 25.9 % (42.0-52.0); HEMOGLOBIN 7.8 g/dl (13.5-17.5); MEAN CORPUSCULAR HEMOGLOBIN 23.8 pg (27.0-33.0); MEAN CORPUSCULAR HGB CONC 30.1 g/dl (32.0-36.5); PLATELET COUNT, AUTOMATED 189 10^3/uL (150-450); RED BLOOD COUNT 3.28 10^6/uL (4.30-6.10); WHITE BLOOD COUNT 14.1 10^3/uL (4.0-10.0)
[2021-04-07 06:10] LABS: MAGNESIUM LEVEL 2.3 MG/DL (1.8-2.4); PHOSPHORUS LEVEL 2.5 MG/DL (2.5-4.9)
[2021-04-07 06:14] LABS: ALBUMIN 2.5 GM/DL (3.2-5.2); ALT/SGPT 26 U/L (12-78); BILIRUBIN,TOTAL 1.7 MG/DL (0.2-1.0); BLOOD UREA NITROGEN 6 MG/DL (7-18); CALCIUM LEVEL 8.3 MG/DL (8.5-10.1); CARBON DIOXIDE LEVEL 27 MEQ/L (21-32); CHLORIDE LEVEL 109 MEQ/L (98-107); CREATININE FOR GFR 0.57 MG/DL (0.70-1.30); GLOMERULAR FILTRATION RATE > 60.0 (>60); GLUCOSE, FASTING 117 MG/DL (70-100); POTASSIUM SERUM 3.7 MEQ/L (3.5-5.1); SODIUM LEVEL 140 MEQ/L (136-145); TOTAL PROTEIN 5.9 GM/DL (6.4-8.2)
[2021-04-07 08:00] VITALS: BP 121/65
--- NOTE | 2021-04-07 08:34 | CR ---
CONSULTATION DATE: 04/06/2021 CHIEF COMPLAINT: Swelling of the right throat and the neck. HISTORY OF PRESENT ILLNESS: This is a 40-year-old man who presented to the emergency department two days ago due to persistent right ear aches. He stated that he has noticed a right neck mass as well for at least the past one and one-half months. His past medical history is significant for alcohol use disorder and drinks 10 beers a day and anemia as well. On presentation to the emergency department, the CBC showed hemoglobin of 2.6 with a normal white count and normal platelet count. CT of the neck was performed as well which shows edema around the right peritonsillar region extending down to the supraglottic area and right level IIa lymph nodes measuring 2.6 cm in greatest diameter. The patient was admitted for management of his multiple medical conditions, as well as treatment for possible peritonsillar cellulitis with antibiotics and Decadron. The patient has responded to the medical management whereby he has some relief of his pain from the ears. He has no respiratory distress. He continues to complain of dysphagia. PAST MEDICAL HISTORY: 1. Hypertension. 2. Alcoholic gastritis hemorrhage. 3. Melena. 4. Hyperammonemia. PAST SURGICAL HISTORY: None. SOCIAL HISTORY: Smoker, one pack per day. Alcohol user, 10 beers a day. He denies use of illicit drugs. FAMILY HISTORY: Noncontributory. ALLERGIES: Reviewed. REVIEW OF SYSTEMS: Reviewed. HOME MEDICATIONS: Reviewed. PHYSICAL EXAMINATION: GENERAL: The patient appears in no acute distress. No stridor or wheezes. No drooling. The patient is able to speak in complete sentences without difficulty. EAR: Normal pinna. Normal external auditory canal. ORAL CAVITY: Moist oral mucosa. The floor of the mouth is not elevated. The tongue is fully mobile without deviation. Both tonsils appear symmetrical in size. No edematous uvula or soft palate. NECK: Palpable 3-cm right jugulodigastric lymphadenopathy. Trachea is midline. No thyromegaly. IMPRESSION: This is a 40-year-old man with multiple medical conditions including a right cervical lymphadenopathy. ASSESSMENT: The patient will benefit from ultrasound-guided fine needle aspiration of the right cervical lymphadenopathy. The Hospitalist service will arrange to have that performed while the patient is in the hospital during this admission. The patient has no acute respiratory distress or abscess in the head or neck area requiring urgent surgical intervention at this time. Upon discharge from the hospital, I will have the patient follow up in my office in 1-2 weeks.
[2021-04-07] MEDS: MULTIVITAMINS/MINERALS THERAP 1 TAB PO SCH (10:05)
[2021-04-07] MEDS: GABAPENTIN 300 MG CAP PO SCH (10:05)
[2021-04-07 10:06] VITALS: BP 139/72
[2021-04-07] MEDS: FERROUS SULFATE 325MG TAB PO SCH (10:06)
[2021-04-07] MEDS: PANTOPRAZOLE 40MG VIAL (C9113 PER 1) IV SCH (10:07)
[2021-04-07] MEDS: FOLIC ACID 1 MG TAB PO SCH (10:07)
[2021-04-07] MEDS: THIAMINE 100 MG TAB PO SCH (10:07)
[2021-04-07] MEDS: ESCITALOPRAM OXALATE 10 MG TAB (LEXAPRO) PO SCH (10:07)
[2021-04-07] MEDS: SUCRALFATE SUSP 1GM/10ML UD PO SCH ×2 (10:39→14:08)
[2021-04-07 12:00] VITALS: BP 116/60
--- NOTE | 2021-04-07 12:39 | IPNPDOC ---
Text Note Date of Service The patient was seen on 04/07/21. NOTE Subjective: 40-year-old male presented to emergency room department with complaints of right neck swelling as well as hard time swallowing. CT scan showed right tonsillar edema. He was also noted to have a hemoglobin of 2.6 g/dL. Presently, he denied chest pain, shortness of breath, abdominal pain, nausea, vomiting, problem with urination and bowel movements. No acute events reported overnight. Review of systems: 10 point review of system was negative except for what is noted in the HPI Physical exam: Vitals: See below General: Lying in bed, no acute distress, obese Head/Neck/Throat: Trachea midline, mucous membranes moist. Right cervical adenopathy appreciated Eyes: Sclera anicteric, no erythema or discharge appreciated bilaterally Thorax: Normal respiratory effort on room air, lungs clear to auscultation bilaterally, no wheezes/rales/rhonchi Cardiovascular: Normal rate, regular rhythm, normal S1, S2; 2+ pedal pulses appreciated Abdomen: Bowel sounds present, soft/nontender/nondistended Genitourinary: No CVA tenderness, no Carey in place Musculoskeletal: Moving all extremities, no edema Skin: Warm, dry Neurologic: AAOx3, speech fluent and goal-directed, no focal deficits, grossly intact Labs: See below Imaging: Please see imaging section Assessment/plan: 40-year-old male with past medical history of alcohol use disorder, acute blood loss anemia, and severe gastritis presented to the emergency room department with complaints of dysphagia. In the emergency room department he was noted to have a hemoglobin of 2.6. He denied hemoptysis, however 2 days prior to admission reported having 2 days of melena which have resolved. An attempt to transfer patient to [facility] for a GI consultation was made on admission but it was refused. #Acute blood loss anemia -GI source is suspected. Patient reports his upper and lower endoscopy done in summer but it did not show any overt bleeding, however, he was told that there was loops of small bowel that may have not been visualized appropriately. His last EGD according to ED records was done on 12/08 noted severe alcoholic gastritis without esophageal varices. -His hemoglobin has responded to each transfusion that was given. H/H remained stable he is status post 5 units of packed red blood cells. -Spoke to surgical team, no acute interventions planned during hospitalization he'll likely need capsule and/or push endoscopy that can be done as an outpatient. #Tonsillitis -CT scan of the head and neck noted right tonsillar edema extending inferiorly into the right pharyngoepiglottic and aryepiglottic folds with asymmetric opacification / narrowing of the right vallecula and piriform sinus with possible extension into the right false vocal cord. and possibly reactive lym phadenopathy. There is no traction of the airways. -Discussed case with Dr. Figueroa of ENT team who recommended dexamethasone for least 24 hours, which were completed. We will put a stop date of antibiotics. He will also be undergoing a FNA of the cervical lymphadenopathy, and can follow-up with ENT team as an outpatient. #Benign liver lesion - appreciated on repeat CT scan of the abdomen with IV contrast. #Transaminitis -Likely secondary to his alcohol use. Continue to monitor liver function. #HTN -Continue with lisinopril #Alcohol use disorder -CIWA this morning was 0. Continue with CIWA protocol, lorazepam as needed, thiamine and folic acid. #DVT Prophylaxis -SCDs Disposition: Pending FNA VS,Fishbone, I+O VS, Fishbone, I+O Laboratory Tests 04/07/21 05:40 Vital Signs Date Time Temp Pulse Resp B/P (MAP) Pulse Ox O2 Delivery O2 Flow Rate FiO2 04/07/21 10:06 139/72 04/07/21 08:00 97.6 77 18 99 Room Air I&O- Last 24 Hours up to 6 AM 04/07/21 06:00 Intake Total 2060 ml Output Total 200 ml Balance 1860 ml МАРИЯ BLACK M.D. Apr 07, 2021 12:39
[2021-04-07] MEDS ORDERED: LIDOCAINE 1% MDV 20ML VIAL As Ordered ONE (14:35)
--- NOTE | 2021-04-07 15:49 | REP ---
INDICATION: per [facility] US guided fine needle aspiration R neck mass. COMPARISON: None. TECHNIQUE: The procedure was performed under the direct supervision of Dr. Vieira. Patient has a history of right neck lymphadenopathy seen on a previous CT scan dated 04/05/2021. The risks and benefits of the procedure were explained to the patient and informed consent was obtained. The right neck lymph node was localized using ultrasound guidance. The skin was prepped and draped in a sterile fashion. 3 mL of 1% lidocaine was used as a local anesthetic. Using ultrasound guidance 8 fine needle aspirations were obtained using 25 gauge needles. Estimated blood loss: Less than 1 mL. The patient tolerated the procedure well and there were no immediate complications. After the appropriate amount to monitor convalescence the patient was discharged from the department. FINDINGS: None IMPRESSION: Ultrasound-guided right neck lymph node biopsy. <Electronically signed by Emile Vera > 04/07/21 1530 <Electronically signed by Brown Vieira > 04/07/21 0545
[2021-04-07] MEDS ORDERED: SUCR1ORA PO (15:52)
[2021-04-07] MEDS ORDERED: THIA100TA PO (15:52)
[2021-04-07] MEDS ORDERED: FERR1TAB8 PO (15:52)
[2021-04-07] MEDS ORDERED: CLIN-250 PO (16:21)
--- NOTE | 2021-04-07 16:27 | DS.PDOC ---
Discharge Summary General Date of Admission Apr 05, 2021 at 01:49 Date of Discharge 04/07/21 Discharge Summary DISCHARGE DIAGNOSES: 1. GI bleed 2. Alcoholic gastritis 3. Right cervical lymphadenopathy 4. Tonsillitis 5. Alcohol abuse COMPLICATIONS/CHIEF COMPLAINT: Acute Blood Loss Anemia,Alcoholism,Anemia,Etoh Abu. HOSPITAL COURSE: Mr. Morin is a 40-year-old male with a past medical history of alcohol use disorder, seizures and delirium tremens, alcoholic gastritis and acute blood loss anemia presented to the emergency department complaining of initially right ear pain and dysphagia. However, he was also noted to have a hemoglobin of 2.6 He has a history of prior GI bleed and therefore was admitted for further evaluation. He was transfused 5 units of packed red blood cells with satisfacto ry response to his hemoglobin levels. CT angiogram did not show overt evidence of a bleed. At the time of discharge his hemoglobin was stable around 7.8-8. Dr. May, of the surgical team was involved in the care of Mr. Morin who recommended further studies be done outpatient to assess for an obscure bleed. The patient in the past was told about having further work-up done but was noncompliant with follow-up with his primary [employer] [facility]. The CT angiogram noted liver surface that was suspicious for cirrhosis. There was also a right hepatic lobe hypodensity that was followed up with a CT scan of the abdomen with and without contrast which noted benign cyst. All imaging findings were explained in length to the patient and he was explained to obtain all imaging records for his reference and for chronic follow-ups. He is encouraged to stop drinking follow-up with his primary care physician regards to his fatty liver. For his primary complaint of dysphagia a CT scan of the neck was done. This showed significant asymmetric soft tissue prominence likely with some edema in t he right tonsillar bed extending inferiorly into the right pharyngoepiglottic and aryepiglottic folds with asymmetric opacification / narrowing of the right vallecula and piriform sinus with possible extension into the right false vocal cord. This was evaluated by the ENT team, Dr. Hernandez, and it was recommended for him to receive dexamethasone for 24 hours and be placed on antibiotics. He will complete course of clindamycin on discharge. A FNA was done of his right cervical lymphadenopathy and biopsy results are pending which should be sent to Dr. Hernandez's office. Patient was explained in length to follow-up with Dr. Hernandez's office in the next 3 to 5 days for biopsy results. At the time of discharge, patient was asymptomatic and hemodynamically stable. He was asked to follow-up with his primary care physician to have blood work done in the next 2 to 3 days to ensure his hemoglobin remained stable. He is also being discharged home on Protonix and Carafate as per surgical recomm endations. DISCHARGE MEDICATIONS: Please see below. ALLERGIES: Please see below. PHYSICAL EXAMINATION ON DISCHARGE: VITAL SIGNS: Please see below. General: Lying in bed, no acute distress Head/Neck/Throat: Trachea midline, mucous membranes moist Eyes: Sclera anicteric, PERRLA Thorax: Normal respiratory effort on room air, lungs clear to auscultation bilaterally, no wheezes/rales/rhonchi Cardiovascular: Normal rate, regular rhythm, normal S1, S2; no S3, S4, rubs/gallops/murmurs Abdomen: Bowel sounds present, soft/nontender/nondistended Genitourinary: No CVA tenderness, no Carey in place Musculoskeletal: Moving all extremities, no edema Skin: Warm, dry Neurologic: AAOx3, speech fluent and goal-directed, no focal deficits, grossly intact LABORATORY DATA: Please see below. IMAGING: CT Neck without contrast FINDINGS: Paranasal sinuses: There is mild to moderate left maxillary sinus mucosal thickening. Nasopharynx: Unremarkable. Oropharynx: Unremarkable. No significant tonsillar enlargement. Hypopharynx: Unremarkable. Larynx: There is significant asymmetric soft tissue prominence likely with edema of the right tonsillar bed extending inferiorly inseparable from the right pharyngo epiglottic fold with asymmetry and opacification of the right vallecula as well as the right piriform sinus and right aryepiglottic fold. There is possible extension to the right false vocal cord. Retropharyngeal space: Unremarkable. Submandibular/Parotid glands: Normal. Glands are normal in size. Thyroid: Normal. No enlarged or calcified nodules. Lymph nodes: There are enlarged right cervical lymph nodes the largest is at level 2 a measuring 2.6 x 2.2 centimetres. Trachea: Visualized trachea is unremarkable. Lungs: Unremarkable as visualized. Bones/joints: Unremarkable. No acute fracture. Soft tissues: Unremarkable. No significant soft tissue swelling. IMPRESSION: Significant asymmetric soft tissue prominence likely with some edema in the right tonsillar bed extending inferiorly into the right pharyngoepiglottic and aryepiglottic folds with asymmetric opacification / narrowing of the right vallecula and piriform sinus with possible extension into the right false vocal cord. Findings could be on the basis of infectious/inflammatory etiology such as tonsillitis with inflammation involving the oropharynx, hypopharynx and supraglottic larynx. However infiltrative neoplastic etiology cannot be excluded. Correlation with clinical history and symptoms is needed. Prominent right cervical lymph nodes could be reactive. Follow-up is recommended. CT ANGIO ABD/PEL FINDINGS: Aorta: No aortic aneurysm. No aortic dissection. Celiac trunk and mesenteric arteries: No occlusion or significant stenosis. Renal arteries: No occlusion or significant stenosis. Right iliac arteries: No occlusion or significant stenosis. Left iliac arteries: No occlusion or significant stenosis. Liver: 2.1 cm hypodensity in the right hepatic lobe. Liver surface is nodular suspicious for cirrhosis. Gallbladder and bile ducts: Unremarkable. No calcified stones. No ductal dilation. Pancreas: Unremarkable. No mass. No ductal dilation. Spleen: Unremarkable. No splenomegaly. Adrenal glands: Normal. No mass. Kidneys and ureters: Unremarkable. No solid mass. No hydronephrosis. Stomach and bowel: Diverticulosis of the sigmoid colon. Appendix: No evidence of appendicitis. Intraperitoneal space: Unremarkable. No free air. No significant fluid collection. Lymph nodes: Unremarkable. No enlarged lymph nodes. Urinary bladder: Unremarkable. No mass. Reproductive: Unremarkable as visualized. Bones/joints: No acute fracture. No dislocation. Soft tissues: Unremarkable. IMPRESSION: Liver surface is nodular suspicious for cirrhosis. Indeterminate hyperdensity in the right hepatic lobe measuring 2.[address] or MRI with hepatic protocol can be obtained for further evaluation. LIVER US FINDINGS: Liver appears diffusely heterogeneous and includes a complex thick walled septated cystic structure in the right lobe measuring 2.3 x 1.8 x 2.2 cm which cannot be further characterized by ultrasound. Pancreas is incompletely evaluated due to interposed bowel gas. The gallbladder is normal and without gallstones, wall thickening, or pericholecystic fluid. No biliary ductal dilatation is appreciated and the common bile duct measures 2.5 mm diameter. Right kidney is normal in reniform shape without hydronephrosis and measures 13.3 x 5.7 x 5.1 cm. No ascites in the visualized right upper quadrant. IMPRESSION: Complex lesion in the right hepatic lobe measures 2.3 cm diameter. Underlying findings to suggest hepatocellular disease also identified. Consider follow-up pre and postcontrast CT of the abdomen for further investigation. CT ABD W/O FOLL BY WITH CONTRA FINDINGS: Lungs: Very small patchy and hazy areas of density at the left lung base. The lung bases are otherwise clear. Heart: The heart is top-normal in size. Liver: There is mild to moderate hepatomegaly and slight lobulation of the margins of the liver. There is fatty infiltration of the liver. There is moderate splenomegaly and this has developed since 2019. There is a small amount of free fluid along the anterior surface of the liver. There is a 2.5 cm lobulated cyst of the midportion of the liver. Gallbladder and bile ducts: Normal appearing gallbladder. Normal common bile duct. Pancreas: Normal appearing pancreas. Adrenals: Normal size. Kidneys and ureters: There is no evidence of calcified stone right or left kidney. There is opacification of the kidneys and normal size renal arteries. Stomach and bowel: There are several diverticula of the left colon. Appendix: Normal appendix. Intraperitoneal space: There is no evidence of pneumoperitoneum. Lymph nodes: There is no evidence of lymphadenopathy. Vasculature: There is opacification of the SMV and the SMA. There is opacification of the aorta which is normal in size. IMPRESSION: 1. 2.5 cm lobulated cyst midportion of the liver probably a benign cyst. This is seen in 2019. 2. Mild to moderate hepatomegaly with fatty infiltration of the liver and slight lobulation of the margins. There is a small amount of ascites along the anterior surface of the liver. 3. Moderate splenomegaly which has developed since 2019 exam. DISCHARGE CONDITION: [Stable]. TIME SPENT ON DISCHARGE: 30 minutes. Vital Signs/I&Os Vital Signs Date Time Temp Pulse Resp B/P (MAP) Pulse Ox O2 Delivery O2 Flow Rate FiO2 04/07/21 12:00 98.0 80 18 116/60 (78) 99 Room Air I&O- Last 24 Hours up to 6 AM 04/07/21 06:00 Intake Total 2060 ml Output Total 200 ml Balance 1860 ml Laboratory Data Labs 24H Laboratory Tests 2 04/06/21 19:39: Iron Level 17L, Total Iron Binding Capacity 467H, Transferrin % Saturation 3.6L, Ferritin 36, Vitamin B12 Level 962H, Folate 12.3 04/07/21 05:40: Nucleated Red Blood Cells % (auto) 0.5H, Anion Gap 4L, Glomerular Filtration Rate > 60.0, Calcium Level 8.3L, Phosphorus Level 2.5, Magnesium Level 2.3, Total Bilirubin 1.7H, Aspartate Amino Transf (AST/SGOT) 29, Alanine Aminotransferase (ALT/SGPT) 26, Alkaline Phosphatase 122H, Total Protein 5.9L, Albumin 2.5L, Albumin/Globulin Ratio 0.7 CBC/BMP Laboratory Tests 04/07/21 05:40 Microbiology Microbiology 04/05/21 Group A Streptococcus Screen (JEFRY) - Final, Complete 04/05/21 Group A Streptococcus Screen (JEFRY) - Final, Complete Strep (Group F) Constellatus 04/05/21 Blood Culture - Preliminary, Resulted No Growth after 48 hours. All Specime... 04/05/21 Blood Culture - Preliminary, Resulted No Growth after 48 hours. All Specime... Discharge Medications Scheduled Clindamycin HCl (Clindamycin HCl) 300 Mg Capsule, 300 MG PO TID Escitalopram Oxalate (Lexapro) 20 Mg Tablet, 20 MG PO DAILY, (Reported) Ferrous Sulfate (Ferrous Sulfate) 325 Mg Tablet, 325 MG PO DAILY Folic Acid (Folic Acid) 1 Mg Tablet, 1 MG PO DAILY, (Reported) Gabapentin (Gabapentin) 600 Mg Tablet, 600 MG PO BID, (Reported) Lisinopril (Lisinopril) 30 Mg Tablet, 30 MG PO DAILY, (Reported) Pantoprazole Sodium (Pantoprazole Sodium) 40 Mg Tablet.dr, 40 MG PO BID, (Reported) Sucralfate (Sucralfate) 1 Gm/10 Ml Oral.susp, 1 GM PO ACHS Thiamine Hcl (Vitamin B-1) 100 Mg Tablet, 100 MG PO BID Allergies Coded Allergies: Penicillins (Verified Allergy, Unknown, 11/03/18) amoxicillin (Verified Allergy, Unknown, 11/03/18) clavulanic acid (Verified Allergy, Unknown, 11/03/18) diphenhydramine (Verified Allergy, Unknown, 11/03/18) ibuprofen (Verified Allergy, Unknown, 11/03/18) naproxen (Verified Allergy, Unknown, 11/03/18) МАРИЯ BLACK M.D. Apr 07, 2021 16:27
== END 2021-04-07 16:37 | disposition home or self-care (01) | DRG 651 ==
LOC: M ED 13:20 → M ED INP 04-05 01:49 → ENRESERV 04-05 02:02 → M PCU 04-05 02:47
PROVIDERS: ADMIT Family Medicine; ATTEND Internal Medicine
PROC: 30233N1 Transfusion of Nonautologous Red Blood Cells into Peripheral Vein, Percutaneous Approach (ICD-10-PCS; 2021-04-05)
PROC: 07913ZX Drainage of Right Neck Lymphatic, Percutaneous Approach, Diagnostic (ICD-10-PCS; principal; 2021-04-07 14:18)
DX: D62 Acute posthemorrhagic anemia (principal); K92.2 Gastrointestinal hemorrhage, unspecified; K70.30 Alcoholic cirrhosis of liver without ascites; K29.20 Alcoholic gastritis without bleeding; J03.90 Acute tonsillitis, unspecified; E87.6 Hypokalemia; R59.0 Localized enlarged lymph nodes; I10 Essential (primary) hypertension; Z91.19 Patient's noncompliance with other medical treatment and regimen; Z79.899 Other long term (current) drug therapy; Z88.0 Allergy status to penicillin; Z88.8 Allergy status to other drugs, medicaments and biological substances; F17.200 Nicotine dependence, unspecified, uncomplicated

== ENCOUNTER 2021-04-24 19:08 | Emergency (ER) | payer OTHER, SELFPAY ==
[~2021-04-24] VITALS: Ht 165.1 cm; Wt 72.7 kg
[~2021-04-24 19:08] MED LIST changes: +CLIN-250 PO; +FERR1TAB8 PO; +SUCR1ORA PO
--- OUTSIDE RECORDS SUMMARY | 2021-04-24 19:11 | CCD | Summary of Care ---
Author Author [facility] Address Unknown Phone Unavailable Care Team Providers Care Radiotelephone Operator Name Role Phone Vidal Beckett MD PCP Encounter Details Care Team Description Date Type Department 04/07/2021 [facility] [place] [address] Allergies Comments Active Allergy Reactions Severity Noted Date Amoxicillin-Pot 11/13/2020 Clavulanate Diphenhydramine 11/13/2020 Ibuprofen 11/13/2020 Naproxen 11/13/2020 Penicillins 11/13/2020 documented as of this encounter (statuses as of 04/09/2021) Medications End Date Status Medication Sig Dispensed Refills Start Date Active Gabapentin 600 MG Oral Take 600 mg 0 Tablet (NEURONTIN) by mouth Two Times Daily Active Escitalopram Oxalate 20 Take 20 mg by 0 MG Oral Tablet (LEXAPRO) mouth daily 11/17/2021 Active Cyanocobalamin 250 MCG Take 1 tablet 30 tablet 11 0 Oral Tablet by mouth 1 daily 11/17/2021 Active Folic Acid 1 MG Oral Take 1 tablet 30 tablet 11 Tablet (FOLVITE) by mouth 1 daily 11/16/2021 Active Pantoprazole Sodium 40 MG Take 1 tablet 30 tablet 11 Oral Tablet Delayed by mouth 1 Release (Protonix) daily documented as of this encounter (statuses as of 04/09/2021) Active Problems Problem Noted Date Acute pancreatitis 12/12/2020 Acute alcoholic gastritis with hemorrhage 11/16/2020 GI bleed 11/14/2020 HTN (hypertension) 11/14/2020 Melena 11/14/2020 Acute blood loss anemia 11/14/2020 Hyperammonemia 11/14/2020 Alcohol withdrawal delirium, acute, hyperactive 10/20 Hyponatremia 11/14/2020 Hypokalemia 11/14/2020 documented as of this encounter (statuses as of 04/09/2021) Social History Date Tobacco Use Types Packs/Day Years Used Started: 02/1991 Current Every Day Smoker Cigarettes 0.5 15 Smokeless Tobacco: Never Used Comments Alcohol Use Standard Drinks/Week Yes 18 (1 standard drink = 0.6 oz pure alcohol) Sex Assigned at Date Recorded Not on file Industry Job Start Date Occupation Not on file Not on file Not on file documented as of this encounter Last Filed Vital Signs Not on filedocumented in this encounter Plan of Treatment Health Maintenance Due Date Last Done Comments MMR Vaccines (1 of 1 - 11/17/1980 Standard series) Varicella Vaccines (1 of 11/17/1980 2 - 2-dose childhood series) Pneumococcal Vaccine: 11/17/1985 Pediatrics (0 to 5 Years) and At-Risk Patients (6 to 64 Years) (1 of 2 - PPSV23) HIV Screening 11/17/1992 DTaP,Tdap,and Td Vaccines 12/26/2013 11/28/2013 (2 - Td or Tdap) COVID-19 Vaccine (2 - 12/25/2020 10/30/2020 Booster for Todd series) Influenza Vaccine 02/18/2021 02/06/2017 HIB Vaccines Aged Out No longer eligible based on patient's age to complete this topic Hepatitis A Vaccines Aged Out No longer eligibl e based on patient's age to complete this topic Hepatitis B Vaccines Aged Out No longer eligibl e based on patient's age to complete this topic IPV Vaccines Aged Out No longer eligible based on patient's age to complete this topic documented as of this encounter Procedures Comments Procedure Name Priority Date/Time Associated Diag nosis HEMATOPATHOLOGY Routine 04/07/2021 12:00 AM EST documented in this encounter Results * Hematopathology (04/07/2021 12:00 AM EST) HEMATOPATHOLOGY Hematopathology Report [facility] Name: [facility] Collection Date: 04/07/2021 00:00 Received Date: 04/08/2021 12:47 Physician(s): RYAN MORRISON MD ADJAPONG, OPOKU,MD Specimen(s) Received A: Fine Needle Aspiration, Flow Cytometry; RECEIVED FNA OF RIGHT NECK LYMPH NODE IN RPMI Clinical History Enlarged lymph nodes TEST REQUESTED/PERFORMED: Flow Cytometry Analysis Diagnosis Flow cytometry of right neck lymph node, FNA: No evidence of non-Hodgkin lymphoma. As the sample shows significant cell degeneration, the flow results might not be denial management representative of the sampled tissue. Yoav Bobo M.D.;Resident Pathologist Electronically Signed By Lay Gaitan M.D. Attending Pathologist 04/08/2021 15:50:33 The attending pathologist named above attests that he/she has personally reviewed the relevant preparation(s) for the specimen(s) and rendered the final diagnosis. Procedures Flow Cytometry Date Ordered:04/08/2021 Status: Signed Out 04/08/2021 Interpretation A cytospin shows mostly degenerating cells. Lymphoma [place] Panel The following markers were assayed: CD45 (gate), CD2, CD3, CD4, CD5, CD7, CD8, CD10, CD19, CD20, [place], and Lambda. Events :[id number] NOTE: Routinely a minimum of 50,000 events are collected in each panel tube. Due to sample cellularity and/or processing this number was not achievable for this sample. No viability performed due to low cellularity. Flow Cytometry Differential (CD45/SSC) Lymphocyte [place]: 2% CD45 dim [place]: 0% Monocyte [place]: 0% Granulocyte [place]: 8% Nucleated/Erythroid [place]: 13% The lymphocyte gate shows B-Cells (CD19): 8% [place]/Lambda Ratio: 2.7 T-Cells (CD3): 86% CD4/CD8 Ratio: 6.9 Results: (expressed as % of lymphocyte gate) B-cell Markers: CD19 = 8, CD19/CD5 = 1 Gated on CD19+ cells: CD19/[place] = 3, CD19/Lambda = 1, CD19/CD10 = 1, CD19/CD20 = 7 T-cell Markers: CD3 = 86, CD5 = 85 Gated on CD3+ cells: CD3/CD2 = 86, CD3/CD4 = 73, CD3/CD8 = 11, CD3/CD7 = 85 Results-Comments Lymphocytes consist predominantly of T cells with normal expression of [place] T-cell markers and an increased CD4/CD8 ratio, and polyclonal B cells. Procedure Electronically Signed By: Lay Gaitan M.D. 04/08/2021 This report may include one or more immunohistochemical stain/fluorochrome conjugated monoclonal antibody results that use analyte specific reagents. All positive and negative controls have been reviewed by the attending pathologist and are satisfactory. The tests were developed and their performance characteristics determined by [facility] Pathology department. They have not been cleared or approved by the [place] Food and Drug Administration. The FDA has determined that such clearance or approval is not necessary. Specimen Performing Organization Address City/State/ZIP Code P eligio Number [address] PATHOLOGY documented in this encounter Care Teams Start Date End Date Radiotelephone Operator Relationship Specialty 11/16/20 Vidal Beckett MD PCP - [address] [id number] documented as of this encounter
--- OUTSIDE RECORDS SUMMARY | 2021-04-24 19:13 | CCD ---
Author Author [facility] Organization [facility] Address Unknown Phone Unavailable Care Team Providers Care Hospice Team Lead Name Role Phone MANUELA RANDLE DORCAS RPA-C Unavailable Unavailable RANDLE, MANUELA DORCAS RPA-C Unavailable Unavailable RANDLE, MANUELA DORCAS RPA-C Unavailable Unavailable RANDLE, MANUELA DORCAS RPA-C Unavailable Unavailable RANDLE, MANUELA DORCAS RPA-C Unavailable Unavailable RANDLE, MANUELA DORCAS RPA-C Unavailable Unavailable RANDLE, MANUELA DORCAS RPA-C Unavailable Unavailable RANDLE, MANUELA DORCAS RPA-C Unavailable Unavailable RANDLE, MANUELA DORCAS RPA-C Unavailable Unavailable RANDLE, MANUELA DORCAS RPA-C Unavailable Unavailable RANDLE, MANUELA DORCAS RPA-C Unavailable Unavailable RANDLE, MANUELA DORCAS RPA-C Unavailable Unavailable RANDLE, MANUELA DORCAS RPA-C Unavailable Unavailable RANDLE, MANUELA DORCAS RPA-C Unavailable Unavailable RANDLE, MANUELA DORCAS RPA-C Unavailable Unavailable RANDLE, MANUELA DORCAS RPA-C Unavailable Unavailable RANDLE, MANUELA DORCAS RPA-C Unavailable Unavailable RANDLE, MANUELA DORCAS RPA-C Unavailable Unavailable RANDLE, MANUELA DORCAS RPA-C Unavailable Unavailable RANDLE, MANUELA DORCAS RPA-C Unavailable Unavailable RANDLE, MANUELA DORCAS RPA-C Unavailable Unavailable RANDLE, MANUELA DORCAS RPA-C Unavailable Unavailable RANDLE, MANUELA DORCAS RPA-C Unavailable Unavailable RADNLE, MANUELA DORCAS RPA-C Unavailable Unavailable RANDLE, MANUELA DORCAS RPA-C Unavailable Unavailable RANDLE, MANUELA DORCAS RPA-C Unavailable Unavailable RANDLE, MANUELA DORCAS RPA-C Unavailable Unavailable RANDLE, MANUELA DORCAS RPA-C Unavailable Unavailable RANDLE, MANUELA DORCAS RPA-C Unavailable Unavailable RANDLE, MANUELA DORCAS RPA-C Unavailable Unavailable RANDLE, MANUELA DORCAS RPA-C Unavailable Unavailable RANDLE, MANUELA DORCAS RPA-C Unavailable Unavailable RANDLE, MANUELA DORCAS RPA-C Unavailable Unavailable RANDLE, MANUELA DORCAS RPA-C Unavailable Unavailable RANDLE, MANUELA DORCAS RPA-C Unavailable Unavailable RANDLE, MANUELA DORCAS RPA-C Unavailable Unavailable RANDLE, MANUELA DORCAS RPA-C Unavailable Unavailable RANDLE, MANUELA DORCAS RPA-C Unavailable Unavailable RANDLE, MANUELA DORCAS RPA-C Unavailable Unavailable RANDLE, MANUELA DORCAS RPA-C Unavailable Unavailable RANDLE, MANUELA DORCAS RPA-C Unavailable Unavailable RANDLE, MANUELA DORCAS RPA-C Unavailable Unavailable RANDLE, MANUELA DORCAS RPA-C Unavailable Unavailable Howard, Antonio [...] Unavailable CRISTIANA, Magdiel JOHNSON MD Unavailable Unavailable CRISTIANA, Magdiel JOHNSON MD [...] Unavailable Unavailable Renny FUNEZ MD Unavailable Unavailable ADJAPONG, RYAN Unavailable Unavailable Gutschjosh SHORT, Jaxon Unavailable Gutschjosh SHORT, Jaxon Unavailable Gutsche , Jaxon Unavailable Gutsche , Jaxon Unavailable Gutsche , Jaxon Unavailable Gutsche , Jaxon Unavailable Gutsche , Jaxon Unavailable Gutsche , Jaxon Unavailable Gutsche , Jaxon Unavailable Gutsche MD, Jaxon Unavailable Gutsche , Jaxon Unavailable Gutsche MD, Jaxon Unavailable Gutsche MD, Jaxon Unavailable Gutsche MD, Jaxon Unavailable Nicola MD, Jaxon Unavailable Nicola MD, Jaxon Unavailable Deandrasche MD, Jaxon Unavailable Alexe MD, Jaxon Unavailable Deandrasche MD, Jaxon Unavailable Alexe MD, Jaxon Unavailable JAXON PETERSEN [id number] Unavailable Unavailable GHASEMI, LAMONT MD Unavailable Unavailable [...] is protected by Article 27-F of the [facility] Public Health law. If you continue you may have access to information: Regarding HIV / AIDS; Provided by facilities licensed or operated by the [facility] Office of Mental Health; or Provided by the [facility] Office for People With Developmental Disabilities. If such information is present, then the following [facility] mandated warning applies: This information [...] ) Propensity to adverse reactions PENICILLINS Penicillin [facility] Propensity to adverse reactions NAPROXEN NAPROXEN [facility] Propensity to adverse reactions IBUPROFEN Ibuprofen [facility] Propensity to adverse reactions DIPHENHYDRAMINE DIPHENHYDRAMINE [facility] Drug allergy AMOXICILLIN-POT CLAVULANATE AMOXICILLIN-POT CLAVULANATE [facility] Allergy to substance Allergy to substance Naproxen SUKI ([facility]) Allergy to substance Allergy to substance Ibuprofen SUKI ([facility]) Allergy to substance Allergy to substance Diphenhydramine Hcl ELIZABETH ([facility]) Family History Family Member Name Family Member Gender Family Member Status Date o f Status Description Data Source(s) Unknown Unknown Problem MEDENT ([facility], [facility]) Encounters Encounter Providers Location Date Indications Data Source(s ) Outpatient Admitter: RYAN MORRISONReferrer: RYAN MORRISON 04/07/2021 12:00:00 AM EST 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 03/23/2021 12:00:00 AM [facility] Inpatient Attender: Antonio Lee [place]: LAMONT GRAY MDAdmitter: LAMONT GRAY MDReferrer: LAMONT GRAY MD A-12/08/2020 12:00: 00 AM EDT - 12/12/2020 01:58:00 PM [facility] Patient discharged. Dorcas Randle, [facility]: [address] [place] [address], [facility] [address], [place] [address], Ph. Attender: DORCAS ISAACS [facility] Medical 11/25/2020 12:00:00 AM EDT SUKI ([facility]) Outpatient Attender: SOOLINDSAY RAMACHANDRAN . [id number] 11/17/2020 03:42:[address] [facility] Inpatient Attender: RON MILLER MDAttender: Jaxon Petersen MDAttender: JAXON PETERSEN [id number]: Bethanie Walls MDAttender: DONAL HUBBARD MDAttender: ALEX ZENDEJAS MDAdmitter: Bethanie Walls MDReferrer: DONAL HUBBARD MD [id number] 11/13/2020 12:00:00 AM EDT - 11/17/2020 05:29:[address] [facility] Patient discharged. Immunizations Vaccine Date Status Description Data Source(s) SARS-COV-2 (COVID-19) vaccine, UNSPECIFIED 10/30/2020 12:00:00 A M EDT completed 10/30/2020 SUKI ([facility]) COVID-19 VACCINE Todd 10/30/2020 12:00:00 AM EDT completed OKSIIS Vaccine Series Complete: YESThis Data wa s Submitted to [facility] Via [employer]. Medications Medication Brand Name Start Date Product Form Dose Route Admi nistrative Instructions Pharmacy Instructions Status Indications Reaction Description Data Source(s) Acetaminophen 325 MG Oral Tablet Acetaminophen 325 MG Oral T ablet 12/12/2020 12:00:00 AM EDT 650 mg Oral active Take 2 tablets by mouth every 8 (eight) hours as needed for up to [address] [facility] Thiamine 100 MG Oral Tablet Thiamine HCl 100 MG Oral T ablet (B-1) Thiamine HCl 100 MG Oral Tablet (B-1) 12/12/2020 12:00:00 AM EDT 100 mg Oral active Take [address] [facility] Lisin[facility]ril 5 MG Oral Tablet Lisinopril 5 MG Oral Table t (PRINIVIL,ZESTRIL) Lisinopril 5 MG Oral Tablet (PRINIVIL,ZESTRIL) 12/12/2020 12:00:00 AM EDT 5 mg Oral active Take 1 tablet by mouth d [facility] pantoprazole 40 MG Delayed Release Oral Tablet pantoprazole (PROTONIX) EC tablet 40 mg pantoprazole (PROTONIX) EC tablet 40 mg 12/11/2020 07:30:00 AM E DT 40 mg Oral active 40 mg, Ora l, Before Breakfast, First dose (after last modification) on Sun12/11/20 at 0730, For 5 doses
Do not crush or chew
[facility] Medication administered onsite Acetaminophen 325 MG Oral [...] mg from all sources in [address]
[facility] Medication administered onsite Oxycodone Hydrochloride 5 MG Oral Tablet oxyCODONE (ROXICODONE) immediate release tablet 5 mg oxyCODONE (ROXICODONE) immediate release tablet 5 mg 12/10/2020 04:45:00 PM EDT 5 mg Oral completed 5 mg, Oral, Once, On Sun12/10/20 at 1645, For 1 dose
Oxycodone immediate release is limited to 10 mg per dose. Higher doses (UH only) require Pain Service consultation and approval.
[facility] Medication administered onsite fentaNYL (SUBLIMAZE) (PF) injection 3858-9629-19 12/10/2020 12:18:14 PM EDT completed Code/Trauma Medicati on, Starting on Sun12/10/[address] [facility] Medication administered onsite 2 ML Midazolam 1 MG/ML Injection midazolam (PF) (VERSE D) injection midazolam (PF) (VERSED) injection 12/10/2020 12:10:25 PM EDT aborted Code/Trauma Medication, Starting on Sun12/10/[address] [facility] Medication administered onsite fentaNYL (SUBLIMAZE) (PF) injection 5761-1321-08 12/10/2020 12:10:02 PM EDT aborted Code/Trauma Medicati on, Starting on Sun12/10/[address] [facility] Medication administered onsite 2 ML Midazolam 1 MG/ML Injection midazolam (PF) (VERSE D) injection midazolam (PF) (VERSED) injection 12/10/2020 12:09:08 PM EDT aborted Code/Trauma Medication, Starting on Sun12/10/[address] [facility] Medication administered onsite fentaNYL (SUBLIMAZE) (PF) injection [id number] 12/10/2020 12:08:42 PM EDT aborted Code/Trauma Medicati on, Starting on Sun12/10/[address] [facility] Medication administered onsite phytonadione (VITAMIN K1) 1 mg/mL oral solution 10 mg 12/09/2020 07:35:00 PM EDT 10 mg Oral completed 10 mg, Oral, Daily Standard, First dose on Sun12/09/20 at 1945, For [address] [facility] Medication administered onsite NaCl infusion 0.9 % [id number] 12/09/2020 07:00:00 PM EDT Intravenous aborted at 100 mL/hr, Intrav enous, Continuous, Starting on Sun12/09/20 at 1900, For [address] [facility] Medication administered onsite Bisacodyl 5 MG Delayed Release Oral Tablet bisacodyl ( DULCOLAX) EC tablet 20 mg bisacodyl (DULCOLAX) EC tablet 20 mg 12/09/2020 05:45:00 PM EDT 20 mg Oral completed 20 mg, Oral, Onc e, On Sun12/09/20 at 1745, For 1 dose
Do not crush or chew
[facility] Medication administered onsite pantoprazole 40 MG Delayed Release Oral Tablet pantoprazole (PROTONIX) EC tablet 40 mg pantoprazole (PROTONIX) EC tablet 40 mg 12/09/2020 05:30:00 PM E DT 40 mg Oral aborted 40 mg, Ora l, Two times daily before breakfast and dinner, First dose on Sun12/09/20 at 1730, For 30 days
Do not crush or chew
[facility] Medication administered onsite 2 ML Midazolam 1 MG/ML Injection midazolam (PF) (VERSE D) injection midazolam (PF) (VERSED) injection 12/09/2020 05:04:35 PM EDT completed Code/Trauma Medication, Starting on Carol 12/09/[address] [place] [address] Medication administered onsite fentaNYL (SUBLIMAZE) (PF) injection [id number] 12/09/2020 05:04:11 PM EDT completed Code/Trauma Medicati on, Starting on Carol 12/09/20 at [facility] Medication administered onsite 2 ML Midazolam 1 MG/ML Injection midazolam (PF) (VERSE D) injection midazolam (PF) (VERSED) injection 12/09/2020 05:02:04 PM EDT completed Code/Trauma Medication, Starting on Carol 12/09/20 at [facility] Medication administered onsite fentaNYL (SUBLIMAZE) (PF) injection [id number] 12/09/2020 05:01:47 PM EDT completed Code/Trauma Medicati on, Starting on Carol 12/09/[address] [place] [address] Medication administered onsite NaCl infusion 0.9 % [id number] 12/09/2020 03:00:00 PM EDT Intravenous aborted at 100 mL/hr, Intrav enous, Continuous, Starting on Carol 12/09/20 at 1500, For [address] [facility] Medication administered onsite Oxycodone Hydrochloride 5 MG Oral Tablet oxyCODONE (ROXICODONE) immediate release tablet 2.5 mg oxyCODONE (ROXICODONE) immediate release tablet 2.5 mg 12/09/2020 12:47:45 PM EDT 2.5 mg Oral completed 2.5 mg, Oral, Every 6 hours PRN, Severe Pain (Pain Scale Score 7-10), Starting on Carlo 12/09/20 at 1247, For 1 day
Oxycodone immediate release is limited to 10 mg per dose. Higher doses ( only) require Pain Service consultation and approval.
[facility] Medication administered onsite Escitalopram 10 MG Oral Tablet escitalopram (LEXAPRO) tablet 20 mg escitalopram (LEXAPRO) tablet 20 mg 12/09/2020 09:00:00 AM EDT 20 mg Oral active 20 mg, Oral, Daily Standard, First dose on Carol 12/09/20 at 0900, For [address] [facility] Medication administered onsite multivitamin tablet 1 tablet [id number] 12/09/2020 09:00:00 AM EDT 1 {tbl} Oral active 1 tablet, Oral , Daily Standard, First dose on Sun12/09/20 at 0900, For [address] [facility] Medication administered onsite Ceftriaxone 1000 MG Injection cefTRIAXone (ROCEPHIN) i nfusion 1 g (premix) cefTRIAXone (ROCEPHIN) infusion 1 g (premix) 12/09/2020 09:00:00 AM EDT 1 g Intravenous aborted 1 g, Intraven ous, at 100 mL/hr, Daily Standard, First dose on Sun12/09/20 at 0900, For 4 doses
Discouraged Uses: Empiric treatment of post-surgical meningitis (ceftazidime preferred)
[facility] Medication administered onsite Oxycodone Hydrochloride 5 MG Oral Tablet oxyCODONE (ROXICODONE) immediate release tablet 2.5 mg oxyCODONE (ROXICODONE) immediate release tablet 2.5 mg 12/09/2020 08:45:00 AM EDT 2.5 mg Oral completed 2.5 mg, Oral, Once, On Sun12/09/20 at 0845, For 1 dose
Oxycodone immediate release is limited to 10 mg per dose. Higher doses ( only) require Pain Service consultation and approval.
[facility] Medication administered onsite NaCl infusion 0.9 % [id number] 12/09/2020 07:45:00 AM EDT Intravenous aborted at 200 mL/hr, Intrav enous, Continuous, Starting on Sun12/09/20 at 0745, For [address] [facility] Medication administered onsite pantoprazole 4 MG/ML Injectable Solution pantoprazole (PROTONIX) injection 80 mg pantoprazole (PROTONIX) injection 80 mg 12/08/2020 11:45:00 PM EDT 80 mg Intravenous completed 80 mg, Intrav enous, Once, On Sun12/08/20 at 2345, For [address] [facility] Medication administered onsite pantoprazole (PROTONIX) 0.4 mg/mL in sodium chloride 0.9 % 2 50 mL infusion 12/08/2020 11:45:00 PM EDT 8 mg/h Intravenous aborted 8 mg/hr (20 mL/hr), Intravenous, at 20 mL/hr, Continuous, Starting on Sun12/08/20 at 2345, For 30 days
Indication: Active GI bleed [facility] Medication administered onsite 1 ML Octreotide 0.05 MG/ML Prefilled Syr moreno octreotide (SANDOSTATIN) injection 50 mcg octreotide (SANDOSTATIN) injection 50 mcg 12/08/2020 11:45:00 PM EDT 50 ug Intravenous completed 50 mcg, Intravenous, Once, On Sun12/08/20 at 2345, For [address] [facility] Medication administered onsite octreotide (SANDOSTATIN) 5 mcg/mL in sodium chloride 0.9 % 2 50 mL infusion 12/08/2020 11:45:00 PM EDT 50 ug/h Intravenous aborted 50 mcg/hr (10 mL/hr), Intravenous, at 10 mL/hr, Continuous, Starting on Sun12/08/20 at 2345, For [address] [facility] Medication administered onsite thiamine (B-1) 500 mg in sodium chloride 0.9 % 50 mL IVPB 12/08/2020 11:45:00 PM EDT 500 mg Intravenous active 500 mg, Intravenous, Administer over 30 Minutes, Daily Standard, First dose on Sun12/08/20 at 2345, For [address] [facility] Medication administered onsite folic acid 1 mg in sodium chloride 0.9 % 50 mL IVPB 12/08/2020 11:45:00 PM EDT 1 mg Intravenous active 1 mg , Intravenous, Administer over 30 Minutes, Daily Standard, First dose on Sun12/08/20 at 2345, For [address] [facility] Medication administered onsite NaCl infusion 0.9 % [id number] 12/08/2020 11:30:00 PM EDT Intravenous aborted at 200 mL/hr, Intrav enous, Continuous, Starting on Sun12/08/20 at 2330, For [address] [facility] Medication administered onsite 50 ML Magnesium Sulfate [...] 16 mEq (2 g) q1h x [address]
[facility] Medication administered onsite Folic Acid 1 MG Oral Tablet Folic Acid 1 MG Oral Table t (FOLVITE) Folic Acid 1 MG Oral Tablet (FOLVITE) 2020 12:00:00 AM EDT 1 mg Oral active Take 1 tablet by mouth daily [facility] Vitamin B 12 0.25 MG Oral Tablet Cyanocobalamin 250 MC G Oral Tablet Cyanocobalamin 250 MCG Oral Tablet 2020 12:00:00 AM EDT 250 ug Oral active Take 1 tablet by mouth daily [facility] pantoprazole 40 MG Delayed Release Oral Tablet Pantoprazole Sodium 40 MG Oral Tablet Delayed Release (Protonix) Pantoprazole Sodium 40 MG Oral Tablet De layed Release (Protonix) 11/17/2020 12:00:00 AM EDT 40 mg Oral active Take 1 tablet by mouth daily [facility] Clindamycin 300 MG Oral Capsule clindamy bharti HCl 300 mg capsule TAKE ONE CAPSULE BY MOUTH EVERY SIX HOURS UNTIL GONE clindamycin HCl 300 mg capsule TAKE ONE CAPSULE BY MOUTH EVERY SIX HOURS UNTIL GONE completed clindamycin 300 MG Oral Capsule ELIZABETH ([facility]) duloxetine 60 MG Delayed Release Oral Ca psule duloxetine 60 mg capsule,delayed release TAKE ONE CAPSULE BY MOUTH ONCE DAILY duloxetine 60 mg capsule,delayed release TAKE ONE CAPSULE BY MOUTH ONCE DAILY completed duloxetine 60 MG Delayed Release Oral Capsule ELIZABETH ([facility]) Lisinopril 30 MG Oral Tablet Lisinopril 30 MG Oral Tab let (ZESTRIL) Lisinopril 30 MG Oral Tablet (ZESTRIL) 30 mg Oral aborted Take 30 mg by mouth daily [facility] Insurance Providers Payer name Policy type / Coverage type Policy ID Covered republican ID Covered republican's relationship to see Policy See Plan Information Medicaid S [id number] Medicaid S [id number] S [id number] [facility] COMMUNITY PLAN [facility] [id number] SP [id number] Managed Care - Community Plan [facility] [id number] S [id number] Medicaid S [id number] S [id number] [employer] COMMUNITY PLAN [id number] SP [id number] Managed Care - [facility] Community Plan P [id number] S [id number] [facility] [id number] SP [id number] Managed Care - Community Plan [facility] P [id number] S [id number] Managed Care - [facility] Community Plan P [id number] S [id number] [facility] I [id number] Self [id number] UH I [id number] Self [id number] UH I [id number] Self [id number] MEDICAID [id number] SP [id number] MEDICAID M [id number] S [id number] SELF PAY ONLY [id number] SP [id number] SELF PAY ONLY [id number] SP [id number] UN COMMUNITY PLAN MCDO [id number] SP [id number] Managed Care BCBS S [id number] S [id number] SELF PAY UNAVAILABLE SP [facility] PLAN [id number] SP [id number] HMO BLUE [id number] SP [id number] Managed Care [facility] O UNAVAILABLE S UNAVAILABLE [facility](MCA[facility]) O [id number] S [id number] [facility] COMMUNITY PLAN MCDO [id number] SP [id number] ANSI-Medicaid [id number] ANSI-Medicaid [id number] ANSI-Medicaid [id number] ANSI-Medicaid [id number] [facility] Health Maintenance Organization ([facility] [place] [place] [id number] Self [id number] Self Pay P None S None Managed Care Nadir P [id number] S [id number] [facility] Maintenance [facility] ([facility] [place] [place] [id number] Self [id number] [facility] [id number] Problems, Conditions, and Diagnoses Code Display Name Description Problem Type Effective Dates Data Source(s) R59.0 Localized enlarged lymph nodes Localized enlarged lymp h nodes Diagnosis 04/07/2021 10:17:00 AM [facility] D50.0 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) Diagnosis 04/07/2021 10:17:00 AM [facility] [id number] Fitting procedure Fitting Procedure Problem 03/04 06:13:25 PM EDT SU[facility]) Surgeries/Procedures Procedure Description Date Indications Data Source(s) HEMATOPATHOLOGY <td>HEMATOPATHOLOGY</td><td> Routine</td><td>04/07/2021 12:00 AM EST</td><td></td><td> </td> 04/07/2021 12:00:00 AM [facility] BLOOD COUNT COMPLETE AUTOMATED <td>CBC</td><td>Timed</ td><td>12/12/2020 5:28 AM EDT</td><td></td><td> </td> 12/12/2020 05:28:00 AM [facility] PHOSPHORUS INORGANIC <td>PHOSPHORUS LEVEL</td><td >Routine</td><td>12/12/2020 5:28 AM EDT</td><td></td><td> </td> 12/12/2020 05:28:00 AM [facility] MAGNESIUM <td>MAGNESIUM LEVEL</td><td> Routine</td><td>12/12/2020 5:28 AM EDT</td><td></td><td> </td> 12/12/2020 05:28:00 AM [facility] BASIC METABOLIC PANEL CALCIUM TOTAL <td>BASIC METABOLI C PANEL</td><td>Routine</td><td>12/12/2020 5:28 AM EDT</td><td></td><td> </td> 12/12/2020 05:28:00 AM [facility] BLOOD COUNT COMPLETE AUTOMATED <td>CBC</td><td>Timed</ td><td>12/11/2020 3:52 PM EDT</td><td></td><td> </td> 12/11/2020 03:52:00 PM [facility] BLOOD COUNT COMPLETE AUTOMATED <td>CBC</td><td>Timed</ td><td>12/11/2020 6:09 AM EDT</td><td></td><td> </td> 12/11/2020 06:09:00 AM [facility] PHOSPHORUS INORGANIC <td>PHOSPHORUS LEVEL</td><td >Routine</td><td>12/11/2020 6:09 AM EDT</td><td></td><td> </td> 12/11/2020 06:09:00 AM [facility] MAGNESIUM <td>MAGNESIUM LEVEL</td><td> Routine</td><td>12/11/2020 6:09 AM EDT</td><td></td><td> </td> 12/11/2020 06:09:00 AM [facility] BASIC METABOLIC PANEL CALCIUM TOTAL <td>BASIC METABOLI C PANEL</td><td>Routine</td><td>12/11/2020 6:09 AM EDT</td><td></td><td> </td> 12/11/2020 06:09:00 AM [facility] BLOOD COUNT COMPLETE AUTOMATED <td>CBC</td><td>Timed</ td><td>12/10/2020 5:47 PM EDT</td><td></td><td> </td> 12/10/2020 05:47:00 PM [facility] BASIC METABOLIC PANEL CALCIUM TOTAL <td>BASIC METABOLI C PANEL</td><td>Routine</td><td>12/10/2020 1:07 PM EDT</td><td></td><td> </td> 12/10/2020 01:07:00 PM [facility] BLOOD COUNT COMPLETE AUTOMATED <td>CBC</td><td>Timed</ td><td>12/10/2020 10:13 AM EDT</td><td></td><td> </td> 12/10/2020 10:13:00 AM [facility] CALCIUM IONIZED <td>CALCIUM, IONIZED</td><td >Routine</td><td>12/10/2020 10:13 AM EDT</td><td></td><td> </td> 12/10/2020 10:13:00 AM [facility] PHOSPHORUS INORGANIC <td>PHOSPHORUS LEVEL</td><td >Routine</td><td>12/10/2020 5:09 AM EDT</td><td></td><td> </td> 12/10/2020 05:09:00 AM [facility] MAGNESIUM <td>MAGNESIUM LEVEL</td><td> Routine</td><td>12/10/2020 5:09 AM EDT</td><td></td><td> </td> 12/10/2020 05:09:00 AM [facility] COMPREHENSIVE METABOLIC PANEL <td>COMPREHENSIVE METABO LIC PANEL</td><td>Routine</td><td>12/10/2020 5:09 AM EDT</td><td></td><td> </td> 12/10/2020 05:09:00 AM [facility] BLOOD COUNT COMPLETE AUTOMATED <td>CBC</td><td>Timed</ td><td>12/10/2020 12:59 AM EDT</td><td></td><td> </td> 12/10/2020 12:59:00 AM [facility] Screening colonoscopy (procedure) <td>COLONOSCOPY</td> <td></td><td>12/10/2020 12:00 AM EDT</td><td></td><td></td> 12/10/2020 12:00:00 AM [facility] UPPER GI ENDOSCOPY; DX, W/WO SPECIMEN COLLECTION, BRUS RADHA/WASHING (SEP PROC) <td>UPPER GI ENDOSCOPY; DX, W/WO SPECIMEN COLLECTION, BRUSHING/WASHING (SEP PROC)</td><td></td><td>12/09/2020 5:00 PM EDT</td><td> Upper GI bleed</td><td></td> 12/09/2020 05:00:00 PM EDT - 12/09/2020 05:15:00 PM [facility] BLOOD COUNT COMPLETE AUTOMATED <td>CBC</td><td>Timed</ td><td>12/09/2020 4:06 PM EDT</td><td></td><td> </td> 12/09/2020 04:06:00 PM [facility] GLUCOSE QUANTITATIVE BLOOD XCPT REAGENT STRIP <td>POCT GLUCOSE, DOCKED</td><td>Routine</td><td>12/09/2020 12:35 PM EDT</td><td></td><td> </td> 12/09/2020 12:35:00 PM [facility] TRANSFUSE RBC (ONCE) <td>TRANSFUSE RBC (ONCE)</td ><td>STAT</td><td>12/09/2020 11:00 AM EDT</td><td></td><td></td> 12/09/2020 11:00:50 AM [facility] CALCIUM IONIZED <td>CALCIUM, IONIZED</td><td >Routine</td><td>12/09/2020 10:15 AM EDT</td><td></td><td> </td> 12/09/2020 10:15:00 AM [facility] ULTRASOUND ABDOMINAL REAL TIME W/IMAGE LIMITED <td>US ABDOMEN LIMITED [id number]</td><td>Routine</td><td>12/09/2020 10:10 AM EDT</td><td></td><td> </td> 12/09/2020 10:10:00 AM [facility] CULTURE BACTERIAL BLOOD AEROBIC W/ID ISOLATES <td>BLOO D CULTURE</td><td>Routine</td><td>12/09/2020 6:04 AM EDT</td><td></td><td></td> 12/09/2020 06:04:00 AM [facility] BLOOD COUNT COMPLETE AUTOMATED <td>CBC</td><td>Timed</ td><td>12/09/2020 6:04 AM EDT</td><td></td><td> </td> 12/09/2020 06:04:00 AM [facility] PHOSPHORUS INORGANIC <td>PHOSPHORUS LEVEL</td><td >Routine</td><td>12/09/2020 6:04 AM EDT</td><td></td><td> </td> 12/09/2020 06:04:00 AM [facility] MAGNESIUM <td>MAGNESIUM LEVEL</td><td> Routine</td><td>12/09/2020 6:04 AM EDT</td><td></td><td> </td> 12/09/2020 06:04:00 AM [facility] COMPREHENSIVE METABOLIC PANEL <td>COMPREHENSIVE METABO LIC PANEL</td><td>Routine</td><td>12/09/2020 6:04 AM EDT</td><td></td><td> </td> 12/09/2020 06:04:00 AM [facility] TRANSFUSE RBC (ONCE) <td>TRANSFUSE RBC (ONCE)</td ><td>STAT</td><td>12/09/2020 5:45 AM EDT</td><td></td><td></td> 12/09/2020 05:45:38 AM [facility] URNLS DIP STICK/TABLET REAGENT AUTO MICROSCOPY <td>URI NALYSIS WITH REFLEX URINE CULTURE</td><td>STAT</td><td>12/09/2020 2:02 AM EDT</td><td></td><td> </td> 12/09/2020 02:02:00 AM [facility] CULTURE BACTERIAL BLOOD AEROBIC W/ID ISOLATES <td>BLOO D CULTURE</td><td>Routine</td><td>12/09/2020 12:07 AM EDT</td><td></td><td></td> 12/09/2020 12:07:00 AM [facility] UPPER GI ENDOSCOPY <td>UPPER GI ENDOSCOPY</td>< td></td><td>12/09/2020 12:00 AM EDT</td><td></td><td></td> 12/09/2020 12:00:00 AM EDT [facility] COVID-19 PCR <td>COVID-19 PCR</td><td>Rou jason</td><td>12/08/2020 11:59 PM EDT</td><td></td><td> </td> 12/08/2020 11:59:00 PM [facility] THROMBOPLASTIN TIME PARTIAL PLASMA/WHOLE BLOOD <td>PAR TIAL THROMBOPLASTIN TIME (PTT)</td><td>STAT</td><td>12/08/2020 11:59 PM EDT</td><td></td><td> </td> 12/08/2020 11:59:00 PM [facility] PROTHROMBIN TIME <td>PROTIME INR</td><td>STAT </td><td>12/08/2020 11:59 PM EDT</td><td></td><td> </td> 12/08/2020 11:59:00 PM [facility] BLOOD COUNT COMPLETE AUTOMATED <td>CBC</td><td>Timed</ td><td>12/08/2020 11:59 PM EDT</td><td></td><td> </td> 12/08/2020 11:59:00 PM [facility] BLOOD TYPING ABO <td>TYPE AND SCREEN</td><td> STAT</td><td>12/08/2020 11:59 PM EDT</td><td></td><td> </td> 12/08/2020 11:59:00 PM [facility] LIPASE <td>LIPASE LEVEL</td><td>STA T</td><td>12/08/2020 11:59 PM EDT</td><td></td><td> </td> 12/08/2020 11:59:00 PM [facility] COMPREHENSIVE METABOLIC PANEL <td>COMPREHENSIVE METABO LIC PANEL</td><td>Routine</td><td>12/08/2020 11:59 PM EDT</td><td></td><td> </td> 12/08/2020 11:59:00 PM [facility] Results ID Date Data Source [id number] 04/08/2021 03:50:00 PM [facility] Hematopathology ReportName: CASIE MORINMRN: [id number] Number: [id number] Date: 04/07/2021 00:00Received Date: 04/08/2021 12:47Physician(s): RYAN MORRISON MD ADJAPONG, OPOKU, MDSpecimen(s) ReceivedA: Fine Needle Aspiration, Flow Cytometry; RECEIVED FNA OF RIGHT NECKLYMPH NODE [facility] HistoryEnlarged lymph nodesTEST REQUESTED/PERFORMED: Flow Cytometry Analysis DiagnosisFlow cytometry of right neck lymph node, FNA: No evidence of non-Hodgkinlymphoma. As the sample shows significant cell degeneration, the flowresults might not be cordage sales representative of the sampled tissue.Yoav alcantar M.D.;Resident PathologistElectronically Signed By Lay Gaitan M.D. Attending Pathologist 04/08/2021 15:50:33The attending pathologist named above attests that he/she has personallyreviewed the relevant preparation(s) for the specimen(s) and rendered thefinal diagnosis. ProceduresFlow Cytometry Date Ordered:04/08/2021 Status: Signed Out04/08/2021 InterpretationA cytospin shows mostly degenerating cells.Lymphoma [place] Panel The following markers were assayed: CD45 (gate), CD2, CD3, CD4, CD5, CD7,CD8, CD10, CD19, CD20, [place], and Lambda.Events :[id number] NOTE: Routinely a minimum of 50,000 events are collectedin each panel tube. Due to sample cellularity and/or processing thisnumber was not achievable for this sample.No viability performed due to low cellularity.Flow Cytometry Differential (CD45/SSC)Lymphocyte [place]: 2%CD45 dim [place]: 0%Monocyte [place]: 0%Granulocyte [place]: 8%Nucleated/Erythroid [place]: 13%The lymphocyte gate showsB-Cells (CD19): 8%[place]/Lambda Ratio: 2.7T-Cells (CD3): 86%CD4/CD8 Ratio: 6.9Results: (expressed as % of lymphocyte gate)B-cell Markers: CD19 = 8, CD19/CD5 = 1Gated on CD19+ cells: CD19/[place] = 3, CD19/Lambda = 1, CD19/CD10 = 1,CD19/CD20 = 7T-cell Markers: CD3 = 86, CD5 = 85Gated on CD3+ cells: CD3/CD2 = 86, CD3/CD4 = 73, CD3/CD8 = 11, CD3/CD7 =85Results- CommentsLymphocytes consist predominantly of T cells with normal expression of panT-cell markers and an increased CD4/CD8 ratio, and polyclonal B cells.Procedure Electronically Signed By:Lay Gaitan M.D.04/08/2021 This report may include one or more immunohistochemical stain/fluorochromeconjugated monoclonal antibody results that use analyte specific reagents.All positive and negative controls have been reviewed by the attendingpathologist and are satisfactory. The tests were developed and theirperformance characteristics determined by [facility] Pathology department.They have not been cleared or approved by the [place] Food and DrugAdministration. The FDA has determined that such clearance or approval isnot necessary. Name Value Range Interpretation Code Description Data Lou rce(s) Supporting Document(s) ID Date Data Source [id number] 04/04/2021 05:06:00 PM EST [facility] Name Value Range Interpretation Code Description [facility]s) SARS coronavirus 2 RNA [Presence] in Res piratory specimen by TOYA with probe detection NEGATIVE [facility] This lab was ordered by [facility] a nd reported by [facility]. ID Date Data Source [id number] 12/12/2020 05:24:26 PM EDT [facility] Name Value Range Interpretation Code Description Data [facility] Supporting Document(s) Discharge Summary [facility] VAJLDa6oGcDYKqDw43/DBEguWDMfc1BfLXzqTTr2JYejXDSpS5MbABX7sT5xHAA0CXbXDrVzQaMzTkT6 lbm [file] Maria Guadalupe/ouijopX4UY73v7hkkZtTuyEkl1MfEQOB4lh/iG [file] [id number]BLvUz7UDgMcPWHYXaTlWB0QHYb= ID Date Data Source [id number] 12/12/2020 06:08:11 AM EDT [facility] Name Value Range Interpretation Code Description Data Lou rce(s) Supporting Document(s) Leukocytes [#/volume] in Blood by Automated count 5.5 10*3/uL 4-10 [facility] Erythrocytes [#/volume] in Blood by Automated count 2.87 10*6/uL 4.6- 6.[address] [facility] Hemoglobin [Mass/volume] in Blood 7.8 g/dL 13.5-[address] [facility] Hematocrit [Volume Fraction] of Blood by Automated count 24.3 % 4 1-[address] [facility] Erythrocyte mean corpuscular volume [Entitic volume] by Auto mated count 84.8 fL 80-96 [facility] Erythrocyte mean corpuscular hemoglobin [Entitic mass] by Automated count 27.3 pg 27-33 [facility] Erythrocyte mean corpuscular hemoglobin concentration [Mass/volume] by Automated count 32.2 g/dL 32.0-36.0 [facility] Erythrocyte distribution width [Ratio] by Automated count 17.3 % 11.5-14.[address] [facility] Platelets [#/volume] in Blood by Automated count 112 10*3/uL 150-[address] [facility] ID Date Data Source [id number] 12/12/2020 06:27:20 AM [facility] Name Value Range Interpretation Code Description Data Lou rce(s) Supporting Document(s) Bicarbonate [Moles/volume] in Serum 23 mmol/L 22-29 [facility] Chloride [Moles/volume] in Serum or Plasma 102 mmol/L 98-107 [facility] Creatinine [Mass/volume] in Serum or Plasma 0.55 mg/dL 0.70-1.[address] [facility] Glucose [Mass/volume] in Serum or Plasma 102 mg/dL 70-140 [facility] Potassium [Moles/volume] in Serum or Plasma 3.5 mmol/L 3.4-5.1 [facility] Sodium [Moles/volume] in Serum or Plasma 133 mmol/L 136-[address] [facility] Urea nitrogen [Mass/volume] in Serum or Plasma 5 mg/dL 6-20 [facility] Anion gap 3 in Serum or Plasma 9 mmol/L 8-15 [facility] Osmolality of Serum or Plasma by calculation 274 mosm/kg 275-[address] [facility] Creatinine/Urea nitrogen [Mass Ratio] in Serum or Plasma 9 [facility] Calcium [Mass/volume] in Serum or Plasma 8.0 mg/dL 8.6-10.0 [facility] Glomerular filtration rate/1.73 sq M pre dicted among non-blacks [Volume Rate/Area] in Serum or Plasma by Creatinine-based formula (MDRD) >[address] [facility] Glomerular filtration rate/1.73 sq M pre dicted among blacks [Volume Rate/Area] in Serum or Plasma by Creatinine-based formula (MDRD) >60 [facility] ID Date Data Source [id number] 12/12/2020 06:27:20 AM [facility] Value Range Interpretation Code Description Data Lou rce(s) Supporting Document(s) Phosphate [Mass/volume] in Serum or Plasma 3.1 mg/dL 2.5-4.5 [facility] ID Date Data Source [id number] 12/12/2020 06:27:20 AM [facility] Value Range Interpretation Code Description Data Lou rce(s) Supporting Document(s) Magnesium [Mass/volume] in Serum or Plasma 2.0 mg/dL 1.6-2.6 [facility] ID Date Data Source [id number] 12/11/2020 04:51:04 PM [facility] Name Value Range Interpretation Code Description Data Lou rce(s) Supporting Document(s) Leukocytes [#/volume] in Blood by Automated count 5.3 10*3/uL 4-10 [facility] Erythrocytes [#/volume] in Blood by Automated count 2.88 10*6/uL 4.6- 6.[address] [facility] Hemoglobin [Mass/volume] in Blood 8.2 g/dL 13.5-[address] [facility] Hematocrit [Volume Fraction] of Blood by Automated count 24.5 % 4 1-[address] [facility] Erythrocyte mean corpuscular volume [Entitic volume] by Auto mated count 84.9 fL 80-96 [facility] Erythrocyte mean corpuscular hemoglobin [Entitic mass] by Automated count 28.5 pg 27-33 [facility] Erythrocyte mean corpuscular hemoglobin concentration [Mass/volume] by Automated count 33.5 g/dL 32.0-36.0 [facility] Erythrocyte distribution width [Ratio] by Automated count 16.9 % 11.5-14.[address] [facility] Platelets [#/volume] in Blood by Automated count 105 10*3/uL 150-[address] [facility] ID Date Data Source [id number] 12/11/2020 03:28:44 PM [facility] Name Value Range Interpretation Code Description Data Lou rce(s) Supporting Document(s) History and Physical [facility] [id number]/GGYgzEVIxa3RiQJloSJs5XTonCBSgH0KjJLU0hT6kVZO7FKvOEgNaPoAbLlI3 [facility] [file] [id number]+SWfsjBReqNvyXUTFJcYbZaO7TFxsKWSIRm9R ID Date Data Source [id number] 12/11/2020 06:57:52 AM [facility] Name Value Range Interpretation Code Description Data Lou rce(s) Supporting Document(s) Leukocytes [#/volume] in Blood by Automated count 4.6 10*3/uL 4-10 [facility] Erythrocytes [#/volume] in Blood by Automated count 2.74 10*6/uL 4.6- 6.[address] [facility] Hemoglobin [Mass/volume] in Blood 7.7 g/dL 13.5-[address] [facility] Hematocrit [Volume Fraction] of Blood by Automated count 23.0 % 4 1-[address] [facility] Erythrocyte mean corpuscular volume [Entitic volume] by Auto mated count 84.2 fL 80-96 [facility] Erythrocyte mean corpuscular hemoglobin [Entitic mass] by Automated count 28.1 pg 27-33 [facility] Erythrocyte mean corpuscular hemoglobin concentration [Mass/volume] by Automated count 33.3 g/dL 32.0-36.0 [facility] Erythrocyte distribution width [Ratio] by Automated count 17.0 % 11.5-14.[address] [facility] Platelets [#/volume] in Blood by Automated count 105 10*3/uL 150-[address] [facility] ID Date Data Source [id number] 12/11/2020 08:31:44 AM [facility] Value Range Interpretation Code Description Data Lou rce(s) Supporting Document(s) Magnesium [Mass/volume] in Serum or Plasma 2.1 mg/dL 1.6-2.6 [facility] ID Date Data Source [id number] 12/11/2020 08:31:44 AM [facility] Value Range Interpretation Code Description Data Lou rce(s) Supporting Document(s) Bicarbonate [Moles/volume] in Serum 22 mmol/L 22-29 [facility] Chloride [Moles/volume] in Serum or Plasma 101 mmol/L 98-107 [facility] Creatinine [Mass/volume] in Serum or Plasma 0.52 mg/dL 0.70-1.[address] [facility] Glucose [Mass/volume] in Serum or Plasma 91 mg/dL 70-140 [facility] Potassium [Moles/volume] in Serum or Plasma 3.5 mmol/L 3.4-5.1 [facility] Sodium [Moles/volume] in Serum or Plasma 133 mmol/L 136-[address] [facility] Urea nitrogen [Mass/volume] in Serum or Plasma 6 mg/dL 6-20 [facility] Anion gap 3 in Serum or Plasma 10 mmol/L 8-15 [facility] Osmolality of Serum or Plasma by calculation 273 mosm/kg 275-[address] [facility] Creatinine/Urea nitrogen [Mass Ratio] in Serum or Plasma 12 [facility] Calcium [Mass/volume] in Serum or Plasma 7.6 mg/dL 8.6-10.[address] [facility] Glomerular filtration rate/1.73 sq M pre dicted among non-blacks [Volume Rate/Area] in Serum or Plasma by Creatinine-based formula (MDRD) >[address] [facility] Glomerular filtration rate/1.73 sq M pre dicted among blacks [Volume Rate/Area] in Serum or Plasma by Creatinine-based formula (MDRD) >60 [facility] ID Date Data Source [id number] 12/11/2020 08:31:44 AM [facility] Name Value Range Interpretation Code Description Data Lou rce(s) Supporting Document(s) Phosphate [Mass/volume] in Serum or Plasma 3.0 mg/dL 2.5-4.5 [facility] ID Date Data Source [id number] 12/10/2020 05:53:09 PM [facility] Name Value Range Interpretation Code Description Data Lou rce(s) Supporting Document(s) History and Physical [facility] CZQTJg9dMiNWTuNr02/UBOwjZXZyx2XaGIgwGSh1GAcsHISoG6DiEIQ3uN6pSAR3UNqKPeNcWvRvPxYs [facility] [file] [id number]DDyeOBLUTf9R ID Date Data Source [id number] 12/10/2020 05:53:04 PM EDT [facility] Name Value Range Interpretation Code Description Data Lou rce(s) Supporting Document(s) History and Physical [facility] BHQGUe7sUhAOUoUn07/XPMdmJGJxm7SjXIunJHg2GIfnNUKdW8OdWUE7jL8vZEG5TYyYJwNqDjKeTwLg lbm [file] MWwLPOBNFhh9IfrJALfkY/JaWGQ0Woc+tailing machine operator+5Mp43vYR/rfnh+MD/XDm4KzLmLwjh/F01BQ06b+3pTrbs 8P/aFHhxWaTqkPVv4nF6HTM9LECiOFzoyMRzasv6xT21zLD7/Qi7DRu0dInggUG9tgVNPpCPdifthbG1 x8Z/7HDDSSgoSECzLrPEnoAYQwq7cOzWar1X7mDqnl D83lbmpoYA0y+ip4DwcbMxNDtRkKM3vfCw4fM4xIUJYEbhZkZ5jl6QfZEc9rJsk2Q/ojr66cZTcHWPuJ OyBNHrvMFvX2jKB0O9VNueR6ZFITdBoCFafH5k6Y0fv3moBlcqgQrU8u9MNa88zBK9kK2ZYKiJZ3SaGz UJJC3IL2kDXHsWmtSP5TJbjBNvMKqqlChu+Eb3tRe4 Nyfs2Srv29+XuK7w1QihnHjTZ4Az+Gf2lZJrD2loi5757Wqlx062/rF20dJF9pu2wc2BpRLbiQt+tgYI EuuuMBh7I+Zsg5DvgVbZslE/LCc9R0vcDp6aaNVZpOJsxwWdsgp0mB6yfl+rc/W1bg/+N4Xei3VGBb9s +2pPLJ9f2T847jRJEt07b37X4d/aCX3+sO9x/Q9lC4 [file] [id number]HAm= ID Date Data Source [id number] 12/10/2020 05:52:44 PM EDT [facility] Name Value Range Interpretation Code Description Data Lou rce(s) Supporting Document(s) Consultation [facility] VURSWj9fCpFPQhDh93/AGDtwFANts1CgHLimVLi3NPcuGZIrY0SoPLL3bA1cYQH4OGcMCgGpMjSiJzWf lbm [file] AMxvfHQoyAhwFYSHPpQcNAR5RQcvPONICr4U ID Date Data Source [id number] [facility]/10[facility]2020 [facility] Value Range Interpretation Code Description Data Lou rce(s) Supporting Document(s) Leukocytes [#/volume] in Blood by Automated count 8.4 10*3/uL 4-10 [facility] Erythrocytes [#/volume] in Blood by Automated count 3.48 10*6/uL 4.6- 6.[address] [facility] Hemoglobin [Mass/volume] in Blood 9.7 g/dL 13.5-[address] [facility] Hematocrit [Volume Fraction] of Blood by Automated count 29.9 % 4 1-[address] [facility] Erythrocyte mean corpuscular volume [Entitic volume] by Auto mated count 85.9 fL 80-96 [facility] Erythrocyte mean corpuscular hemoglobin [Entitic mass] by Automated count 27.9 pg 27-33 [facility] Erythrocyte mean corpuscular hemoglobin concentration [Mass/volume] by Automated count 32.5 g/dL 32.0-36.0 [facility] Erythrocyte distribution width [Ratio] by Automated count 17.3 % 11.5-14.[address] [facility] Platelets [#/volume] in Blood by Automated count 127 10*3/uL 150-[address] [facility] ID Date Data Source [id number] 12/10/2020 01:48:36 PM [facility] Name Value Range Interpretation Code Description Data Lou rce(s) Supporting Document(s) Bicarbonate [Moles/volume] in Serum 22 mmol/L 22-29 [facility] Chloride [Moles/volume] in Serum or Plasma 102 mmol/L 98-107 [facility] Creatinine [Mass/volume] in Serum or Plasma 0.54 mg/dL 0.70-1.[address] [facility] Glucose [Mass/volume] in Serum or Plasma 84 mg/dL 70-140 [facility] Potassium [Moles/volume] in Serum or Plasma 3.9 mmol/L 3.4-5.1 [facility] Sodium [Moles/volume] in Serum or Plasma 132 mmol/L 136-[address] [facility] Urea nitrogen [Mass/volume] in Serum or Plasma 7 mg/dL 6-20 [facility] Anion gap 3 in Serum or Plasma 8 mmol/L 8-15 [facility] Osmolality of Serum or Plasma by calculation 271 mosm/kg 275-[address] [facility] Creatinine/Urea nitrogen [Mass Ratio] in Serum or Plasma 13 [facility] Calcium [Mass/volume] in Serum or Plasma 7.9 mg/dL 8.6-10.[address] [facility] Glomerular filtration rate/1.73 sq M pre dicted among non-blacks [Volume Rate/Area] in Serum or Plasma by Creatinine-based formula (MDRD) >[address] [facility] Glomerular filtration rate/1.73 sq M pre dicted among blacks [Volume Rate/Area] in Serum or Plasma by Creatinine-based formula (MDRD) >60 [facility] ID Date Data Source [id number] 12/10/2020 10:56:25 AM [facility] Name Value Range Interpretation Code Description Data Lou rce(s) Supporting Document(s) Calcium.ionized [Moles/volume] in Arterial blood 1.08 mmol/L 1.13-1.[address] [facility] ID Date Data Source [id number] 12/10/2020 10:55:28 AM [facility] Name Value Range Interpretation Code Description Data Lou rce(s) Supporting Document(s) Leukocytes [#/volume] in Blood by Automated count 6.5 10*3/uL 4-10 [facility] Erythrocytes [#/volume] in Blood by Automated count 3.30 10*6/uL 4.6- 6.[address] [facility] Hemoglobin [Mass/volume] in Blood 9.2 g/dL 13.5-[address] [facility] Hematocrit [Volume Fraction] of Blood by Automated count 28.1 % 4 1-53 [facility] Erythrocyte mean corpuscular volume [Entitic volume] by Auto mated count 85.3 fL 80-96 [facility] Erythrocyte mean corpuscular hemoglobin [Entitic mass] by Automated count 27.8 pg 27-33 [facility] Erythrocyte mean corpuscular hemoglobin concentration [Mass/volume] by Automated count 32.7 g/dL 32.0-36.0 [facility] Erythrocyte distribution width [Ratio] by Automated count 17.3 % 11.5-14.[address] [facility] Platelets [#/volume] in Blood by Automated count 110 10*3/uL 150-[address] [facility] ID Date Data Source [id number] 12/10/2020 06:01:23 AM [facility] Name Value Range Interpretation Code Description Data Lou rce(s) Supporting Document(s) Magnesium [Mass/volume] in Serum or Plasma 2.2 mg/dL 1.6-2.6 [facility] ID Date Data Source [id number] 12/10/2020 06:01:23 AM [facility] Value Range Interpretation Code Description Data Lou rce(s) Supporting Document(s) Phosphate [Mass/volume] in Serum or Plasma 3.1 mg/dL 2.5-4.5 [facility] ID Date Data Source [id number] 12/10/2020 06:01:23 AM [facility] Value Range Interpretation Code Description Data Lou rce(s) Supporting Document(s) Albumin [Mass/volume] in Serum or Plasma by Bromocresol green (BCG) dye binding method 2.3 g/dL 3.5-5.2 L [facility] Bilirubin.total [Mass/volume] in Serum or Plasma 1.2 mg/dL <1.[address] [facility] Calcium [Mass/volume] in Serum or Plasma 7.5 mg/dL 8.6-10.[address] [facility] Chloride [Moles/volume] in Serum or Plasma 102 mmol/L 98-107 [facility] Creatinine [Mass/volume] in Serum or Plasma 0.57 mg/dL 0.70-1.[address] [facility] Glucose [Mass/volume] in Serum or Plasma 88 mg/dL 70-140 [facility] Alkaline phosphatase [Enzymatic activity/volume] in Serum or Plasma 104 U/L 40-129 [facility] Potassium [Moles/volume] in Serum or Plasma 3.8 mmol/L 3.4-5.1 [facility] Protein [Mass/volume] in Serum or Plasma 4.7 g/dL 6.4-8.[address] [facility] Sodium [Moles/volume] in Serum or Plasma 129 mmol/L 136-[address] [facility] Aspartate aminotransferase [Enzymatic activity/volume] in Serum or Plasma 145 U/L <[address] [facility] Urea nitrogen [Mass/volume] in Serum or Plasma 8 mg/dL 6-20 [facility] Osmolality of Serum or Plasma by calculation 265 mosm/kg 275-[address] [facility] Creatinine/Urea nitrogen [Mass Ratio] in Serum or Plasma 14 [facility] Bicarbonate [Moles/volume] in Serum 20 mmol/L 22-[address] [facility] Alanine aminotransferase [Enzymatic activity/volume] in Seru m or Plasma 54 U/L <[address] [facility] Anion gap 3 in Serum or Plasma 6 mmol/L 8-[address] [facility] Glomerular filtration rate/1.73 sq M pre dicted among non-blacks [Volume Rate/Area] in Serum or Plasma by Creatinine-based formula (MDRD) >[address] [facility] Glomerular filtration rate/1.73 sq M pre dicted among blacks [Volume Rate/Area] in Serum or Plasma by Creatinine-based formula (MDRD) >60 [facility] ID Date Data Source [id number] 12/10/2020 01:34:51 AM EDT [facility] Name Value Range Interpretation Code Description Data Lou rce(s) Supporting Document(s) Leukocytes [#/volume] in Blood by Automated count 7.5 10*3/uL 4-10 [facility] Erythrocytes [#/volume] in Blood by Automated count 2.95 10*6/uL 4.6- 6.1 [facility] Hemoglobin [Mass/volume] in Blood 8.1 g/dL 13.5-[address] [facility] Hematocrit [Volume Fraction] of Blood by Automated count 25.3 % 4 1-53 [facility] Erythrocyte mean corpuscular volume [Entitic volume] by Auto mated count 85.9 fL 80-96 [facility] Erythrocyte mean corpuscular hemoglobin [Entitic mass] by Automated count 27.5 pg 27-33 [facility] Erythrocyte mean corpuscular hemoglobin concentration [Mass/volume] by Automated count 32.1 g/dL 32.0-36.0 [facility] Erythrocyte distribution width [Ratio] by Automated count 17.2 % 11.5-14.[address] [facility] Platelets [#/volume] in Blood by Automated count 105 10*3/uL 150-[address] [facility] ID Date Data Source [id number] 12/09/2020 06:15:27 PM EDT [facility] Name Value Range Interpretation Code Description Data Lou rce(s) Supporting Document(s) Consultation [facility] IVECEp9bCkBQPoKe92/IHPvhOWXqp2QdJKjeSEe6PKovFNWqD9HyLJJ7zY8eBVY8ZJkQYcLrIlCwRaHr lbm [file] WCJfBASaMDE8NNo0ZOUgGqD+NK2wCOg+Hs9Vi0KhdwM0lxLkXUwhWMg7Ex8GKTNNQ4UDOr== ID Date Data Source [id number] 12/09/2020 05:06:16 PM [facility] Name Value Range Interpretation Code Description Data Lou e(s) Supporting Document(s) Leukocytes [#/volume] in Blood by Automated count 6.0 10*3/uL 4-10 [facility] Erythrocytes [#/volume] in Blood by Automated count 3.13 10*6/uL 4.6- 6.[address] [facility] Hemoglobin [Mass/volume] in Blood 8.7 g/dL 13.5-[address] [facility] Hematocrit [Volume Fraction] of Blood by Automated count 26.6 % 4 1-[address] [facility] Erythrocyte mean corpuscular volume [Entitic volume] by Auto mated count 84.9 fL 80-96 [facility] Erythrocyte mean corpuscular hemoglobin [Entitic mass] by Automated count 27.9 pg 27-33 [facility] Erythrocyte mean corpuscular hemoglobin concentration [Mass/volume] by Automated count 32.9 g/dL 32.0-36.0 [facility] Erythrocyte distribution width [Ratio] by Automated count 17.1 % 11.5-14.[address] [facility] Platelets [#/volume] in Blood by Automated count 100 10*3/uL 150-[address] [facility] ID Date Data Source [id number] 12/09/2020 12:45:01 PM EDT [facility] Name Value Range Interpretation Code Description Data Lou rce(s) Supporting Document(s) Glucose [Mass/volume] in Capillary blood by Glucometer 94 mg/dL 70- 140 [facility] ID Date Data Source [id number] 12/09/2020 11:21:01 AM [facility] US ABDOMEN LIMITED [id number] RESULTInte rpreted by:Jessica Lr, DOStudy: ULTRASOUND ABDOMEN LIMITEDHISTORY: History of GI [...] rce(s) Supporting Document(s) ID Date Data Source [id number] [facility] Value Range Interpretation Code Description Data Lou rce(s) Supporting Document(s) Calcium.ionized [Moles/volume] in Arterial blood 1.13 mmol/L 1.13-1.[address] [facility] ID Date Data Source [id number] 12/14/2020 10:43:44 AM [facility] Service Cmnt XXX-Imp : R ARMMicroorganis m XXX Cult : No growth 5 days Name Value Range Interpretation Code Description Data Lou rce(s) Supporting Document(s) ID Date Data Source [id number] 12/09/2020 06:24:47 AM [facility] Name Value Range Interpretation Code Description Data Lou rce(s) Supporting Document(s) Leukocytes [#/volume] in Blood by Automated count 6.9 10*3/uL 4-10 [facility] Erythrocytes [#/volume] in Blood by Automated count 2.54 10*6/uL 4.6- 6.[address] [facility] Hemoglobin [Mass/volume] in Blood 7.0 g/dL 13.5-[address] [facility] Hematocrit [Volume Fraction] of Blood by Automated count 21.3 % 4 1-[address] [facility] Erythrocyte mean corpuscular volume [Entitic volume] by Auto mated count 83.7 fL 80-96 [facility] Erythrocyte mean corpuscular hemoglobin [Entitic mass] by Automated count 27.4 pg 27-33 [facility] Erythrocyte mean corpuscular hemoglobin concentration [Mass/volume] by Automated count 32.7 g/dL 32.0-36.0 [facility] Erythrocyte distribution width [Ratio] by Automated count 17.1 % 11.5-14.[address] [facility] Platelets [#/volume] in Blood by Automated count 107 10*3/uL 150-[address] [facility] ID Date Data Source [id number] 12/09/2020 06:41:24 AM EDT [facility] Name Value Range Interpretation Code Description Data Lou rce(s) Supporting Document(s) Albumin [Mass/volume] in Serum or Plasma by Bromocresol green (BCG) dye binding method 2.1 g/dL 3.5-5.[address] [facility] Bilirubin.total [Mass/volume] in Serum or Plasma 1.1 mg/dL <1.2 [facility] Calcium [Mass/volume] in Serum or Plasma 7.2 mg/dL 8.6-10.[address] [facility] Chloride [Moles/volume] in Serum or Plasma 106 mmol/L 98-107 [facility] Creatinine [Mass/volume] in Serum or Plasma 0.47 mg/dL 0.70-1.[address] [facility] Glucose [Mass/volume] in Serum or Plasma 81 mg/dL 70-140 [facility] Alkaline phosphatase [Enzymatic activity/volume] in Serum or Plasma 104 U/L 40-129 [facility] Potassium [Moles/volume] in Serum or Plasma 4.0 mmol/L 3.4-5.1 [facility] Protein [Mass/volume] in Serum or Plasma 4.3 g/dL 6.4-8.[address] [facility] Sodium [Moles/volume] in Serum or Plasma 131 mmol/L 136-[address] [facility] Aspartate aminotransferase [Enzymatic activity/volume] in Serum or Plasma 52 U/L <[address] [facility] Urea nitrogen [Mass/volume] in Serum or Plasma 14 mg/dL 6-20 [facility] Osmolality of Serum or Plasma by calculation 272 mosm/kg 275-[address] [facility] Creatinine/Urea nitrogen [Mass Ratio] in Serum or Plasma 29 [facility] Bicarbonate [Moles/volume] in Serum 19 mmol/L 22-[address] [facility] Alanine aminotransferase [Enzymatic activity/volume] in Seru m or Plasma 19 U/L <41 [facility] Anion gap 3 in Serum or Plasma 6 mmol/L 8-[address] [facility] Glomerular filtration rate/1.73 sq M pre dicted among non-blacks [Volume Rate/Area] in Serum or Plasma by Creatinine-based formula (MDRD) >[address] [facility] Glomerular filtration rate/1.73 sq M pre dicted among blacks [Volume Rate/Area] in Serum or Plasma by Creatinine-based formula (MDRD) >60 [facility] ID Date Data Source [id number] 12/09/2020 09:48:[facility] Name Value Range Interpretation Code Description Data Lou rce(s) Supporting Document(s) Magnesium [Mass/volume] in Serum or Plasma 1.7 mg/dL 1.6-2.6 [facility] ID Date Data Source [id number] 12/09/2020 09:48:45 AM [facility] Name Value Range Interpretation Code Description Data Lou rce(s) Supporting Document(s) Phosphate [Mass/volume] in Serum or Plasma 2.3 mg/dL 2.5-4.[address] [facility] ID Date Data Source [id number] 12/09/2020 02:18:20 AM [facility] Name Value Range Interpretation Code Description Data Lou rce(s) Supporting Document(s) Color of Urine [facility] Clarity of Urine [facility] Specific gravity of Urine by Refractometry automated 1.010 1.003 -1.030 [facility] pH of Urine by Automated test strip 7.0 5.0-8.0 [facility] Protein [Mass/volume] in Urine by Automated test strip Neg [facility] Glucose [Mass/volume] in Urine by Automated test strip Neg [facility] Ketones [Mass/volume] in Urine by Automated test strip Neg [facility] Bilirubin.total [Presence] in Urine by Automated test strip Negative [facility] Hemoglobin [Presence] in Urine by Automated test strip Neg [facility] Leukocyte esterase [Presence] in Urine by Automated test strip Negative [facility] Nitrite [Presence] in Urine by Automated test strip Negati ve [facility] Leukocytes [#/area] in Urine sediment by Automated count 0 /HPF 0 -5 [facility] Erythrocytes [#/area] in Urine sediment by Automated count 0 /HPF 0-3 [facility] Service comment [facility] ID Date Data Source [id number] 12/14/2020 10:43:44 AM [facility] Service Cmnt XXX-Imp : L ARMMicroorganis m XXX Cult : No growth 5 days Name Value Range Interpretation Code Description Data Lou rce(s) Supporting Document(s) ID Date Data Source [id number] 12/11/2020 07:07:34 AM EDT [facility] Name Value Range Interpretation Code Description Data Lou rce(s) Supporting Document(s) ABO and Rh group [Type] in Blood [facility] Blood group antibody screen [Presence] in Serum or Plasma [facility] Performed at [facility], Raquel Stakr Geeta brody, [id number] ID Date Data Source [id number] 12/08/2020 11:59:00 PM EDT [facility] Name Value Range Interpretation Code Description Data Lou rce(s) Supporting Document(s) SARS-CoV-2 RNA 2019 nCoV Real-Time RT-PCR: NOT DETECTED [facility] This lab was ordered by [facility] and reported by [facility]. ID Date Data Source [id number] 12/09/2020 09:30:29 AM EDT [facility] Value Range Interpretation Code Description Data Lou rce(s) Supporting Document(s) Specimen source [Identifier] of Unspecified specimen [facility] SARS-CoV-2 RNA 2019 nCoV Real-Time RT-PCR: NOT DETECTED [facility] Assay Performed [facility] Patients first test for [facility] Patient employed in healthcare setting [facility] Patient has symptoms related to [facility] When did you start to experience these symptoms [Date and time] [Phen X] [facility] Patient was hospitalized because of this condition [facility] patient was admitted to ICU for [facility] Patient resides in a congregate care setting [facility] status [facility] ID Date Data Source [id number] 12/09/2020 12:23:05 AM EDT [facility] Name Value Range Interpretation Code Description Data Lou rce(s) Supporting Document(s) Leukocytes [#/volume] in Blood by Automated count 11.0 10*3/uL 4-[address] [facility] Erythrocytes [#/volume] in Blood by Automated count 2.48 10*6/uL 4.6- 6.[address] [facility] Hemoglobin [Mass/volume] in Blood 6.6 g/dL 13.5-[address] [facility] Hematocrit [Volume Fraction] of Blood by Automated count 20.1 % 4 1-53 [facility] Called to and read back by fito starr rn [id number] [id number] at 0022 by 1522 Erythrocyte mean corpuscular volume [Entitic volume] by Auto mated count 81.1 fL 80-96 [facility] Erythrocyte mean corpuscular hemoglobin [Entitic mass] by Automated count 26.6 pg 27-[address] [facility] Erythrocyte mean corpuscular hemoglobin concentration [Mass/volume] by Automated count 32.7 g/dL 32.0-36.0 [facility] Erythrocyte distribution width [Ratio] by Automated count 16.2 % 11.5-14.[address] [facility] Platelets [#/volume] in Blood by Automated count 131 10*3/uL 150-[address] [facility] ID Date Data Source [id number] 12/09/2020 12:31:19 AM [facility] Value Range Interpretation Code Description Data Lou rce(s) Supporting Document(s) aPTT in Platelet poor plasma by Coagulation assay 31.0 s 24.0-33. 0 [facility] ID Date Data Source [id number] 12/09/2020 12:31:19 AM [facility] Value Range Interpretation Code Description Data Lou rce(s) Supporting Document(s) Prothrombin time (PT) 16.9 s 11.6-14.[address] [facility] INR in Platelet poor plasma by Coagulation assay 1.44 [facility] Routine intensity oral anticoagulation I NR is typically 2.0-3.0. Target INR must be clinically individualized. ID Date Data Source [id number] 12/09/2020 12:52:30 AM [facility] Value Range Interpretation Code Description Data Lou rce(s) Supporting Document(s) Lipase [Enzymatic activity/volume] in Serum or Plasma 226 U/L 13-[address] [facility] ID Date Data Source [id number] 12/09/2020 12:52:30 AM [facility] Value Range Interpretation Code Description Data Lou rce(s) Supporting Document(s) Albumin [Mass/volume] in Serum or Plasma by Bromocresol green (BCG) dye binding method 2.4 g/dL 3.5-5.2 L [facility] al Bilirubin.total [Mass/volume] in Serum or Plasma 1.0 mg/dL <1.2 [facility] Calcium [Mass/volume] in Serum or Plasma 7.9 mg/dL 8.6-10.[address] [facility] Chloride [Moles/volume] in Serum or Plasma 97 mmol/L 98-[address] [facility] Creatinine [Mass/volume] in Serum or Plasma 0.49 mg/dL 0.70-1.[address] [facility] Glucose [Mass/volume] in Serum or Plasma 92 mg/dL 70-140 [facility] Alkaline phosphatase [Enzymatic activity/volume] in Serum or Plasma 121 U/L 40-129 [facility] Potassium [Moles/volume] in Serum or Plasma 3.9 mmol/L 3.4-5.1 [facility] Protein [Mass/volume] in Serum or Plasma 4.8 g/dL 6.4-8.[address] [facility] Sodium [Moles/volume] in Serum or Plasma 125 mmol/L 136-[address] [facility] Aspartate aminotransferase [Enzymatic activity/volume] in Serum or Plasma 52 U/L <[address] [facility] Urea nitrogen [Mass/volume] in Serum or Plasma 17 mg/dL 6-20 [facility] Osmolality of Serum or Plasma by calculation 261 mosm/kg 275-300 [facility] Creatinine/Urea nitrogen [Mass Ratio] in Serum or Plasma 35 [facility] Bicarbonate [Moles/volume] in Serum 22 mmol/L 22-29 [facility] Alanine aminotransferase [Enzymatic activity/volume] in Seru m or Plasma 21 U/L <41 [facility] Anion gap 3 in Serum or Plasma 6 mmol/L 8-[address] [facility] Glomerular filtration rate/1.73 sq M pre dicted among non-blacks [Volume Rate/Area] in Serum or Plasma by Creatinine-based formula (MDRD) >[address] [facility] Glomerular filtration rate/1.73 sq M pre dicted among blacks [Volume Rate/Area] in Serum or Plasma by Creatinine-based formula (MDRD) >60 [facility] ID Date Data Source [id number] 12/08/2020 06:44:00 PM EDT [facility] Name Value Range Interpretation Code Description Data Lou rce(s) Supporting Document(s) SARS coronavirus 2 RNA [Presence] in Res piratory specimen by TOYA with probe detection [facility] This lab was ordered by [facility] a nd reported by [facility]. ID Date Data Source [id number] 11/26/2020 08:42:12 AM EDT [facility] Name Value Range Interpretation Code Description Data Lou rce(s) Supporting Document(s) ED Provider Note [facility] PSYZDx7lQwRECaMu45/LXCwgEVSft9QmWPlkOSo5SStdJCHeR9WfUSV5kY3pEZV5PZoWWyTqOyCmRwY8 lbm [file] AwMzQzNiAwMDAwMCBuDQowMDAwMDAzNjQwIDAwMDAw TL0DMpEcEYUiYNC6JyQfEDJvZSPmwb5RSEBvBNPlTzT5YXEfXFNmTQKxLLegUJMvTBN9WsA2BCYuCCEg YE6YBtOfYDBuUDh3RTNmOZUuXCFsym0DKCBhVOBwRnJpXPAyWYYkWQAoYPqiAEGqQHJbAoA1PQZmYFSx QJ2LKyDlOBNtUXE2RIFlGMPlYDOten2XFLFoRRKdPo FkMBVzSTXxGQBjPMxtTLIaVYB8GSTgJIPsYJNnJA6TFvWbRZFuGVb1WHbjLFHqEKHjdx0LZMAwOLXnQu X3SDXeEOPcYMHkCObzQTAoGJTiOjZ0ZRJsEPLdMZ0GSvMyRNYyKkQdXcwxWHGkLNCcgs0HYMRlXRNqVs C9DTHfUNEyVXLkGAfuXHVnKVV2EixdEXGjUQOuIX1X MtViYAFaLva1WHPoHMLhGWKzln7AYZQySSClDiBwRcLeFIJcZISyGHpfVBBkCOXlDVUxBYYsAZSkCS9B RtTiVQKuYfL4PYBoJKJwDQBqfh7YPQSyCDSxSSapHOYrDRAuTGKrJFlgPOWrYSC2JavdEKFiSYWfZJ2R SnSfUSLlLuo1CGptABNbOQPket8FFERvLGY5LSi7LB FqNJBhRLNhBFabQBYcYMPkZWVqHNYgYSRwRP3PAvKcBOEdETXjOoGyFVXjMGGtbf7FCECrIGN3ViEhSZ DwBKGpRQWhJOpkSWWyKXWjGNIjVWDjDBFsLA5HJsYtPQExPTKaUqWnYUPmEIXitz4DANXsKPY9CiB2Vo FzBKWwBXTrSNuiEIOfOOFdUsRnOAKoTSPkCC5CXlSw XBIvXIEoOaZjCVFwILHypt5RYMRtUIP8LPJ2IsXaDZFgXYRkFOuyXHXkXGV2PrBmKTOfVVCwXV4KEhSa DXTzLIX7BSFlRPApAPUzmf0SHAStPGY4LfZ4KcFuDJNyHBVwRVtjOIDnCUH8DJnfIEDzIFNcDE3DFpFv VKEdKJvzVeCaNYReUZPpxt1FSKQbVUK0MtI4MlRiJH VeMJTzCAfwMQLbXNN7XzYjSJTwKMUhGW4NKiJbNABwDAzlMQEfPIVlBSRgex0UODVlFRZ3GOX9RyUdRT XiCGEmJYgpRDMtXZW4IPW6DPWmHRPjYC5QHtGrVZScGXn0TzxjZRBrGACtod2HZUSpKEW3PJn7KmKpHJ HqXWVsVVkiNCKuDSDcQAI7WBUqOGZfRA8CAiHtDACn CnDvFFjfHJNpXKGqas6TmPXmsJrkpu7CVFiVAv9HzJadVJGgOTlnIz8itDH5JoJhCQIBNr8YnwFsAJRj JYZOGAnzMNTkPBUuQRV5SQWmApM4SUHkGUKmBGK7OOfgE1K6AoziRCB1BxZ3O0T1FcsoFuL7JdyzXDPp MLW8BlvmNCPoKgG4INE0Wev+EH3nCYk+Lj2Oh0BvcmQ8boIcVLn8LFG8Vf4SCTQWY8YTQe== ID Date Data Source [id number] 11/17/2020 11:27:03 PM EDT [facility] Name Value Range Interpretation Code Description Data Lou rce(s) Supporting Document(s) Discharge Summary [facility] YIYZXs8lEcAFAaZm59/UQOukCRLqx6IcPXnrFQm3KHhqFIBmM9SnQEM7mZ6fYQN3QWmDXdNzIbEkPrKd lbm [file] M5WrT1HPdmAy9kKPJPXl5+CQqyvAJklAsiNHYPSrW4SGW6YBpgPDQHKe6L ID Date Data Source [id number] 11/17/2020 03:42:22 PM EDT [facility] Name Value Range Interpretation Code Description Data Lou rce(s) Supporting Document(s) Progress Note [facility] RONDCj6jNmVWUqNy80/SJCttFHGfv0FjBNqkVPq7JZkqIRMvS4ZwTSD9iW7pBJO6KEyOAtPsCxUqTjHa lbm [file] YNCg== ID Date Data Source [id number] 11/17/2020 03:24:34 PM EDT [facility] Name Value Range Interpretation Code Description Data Lou rce(s) Supporting Document(s) Consultation [facility] VNSLSi4kMxNDOtKf89/IVPwlIKCva9QgXVgwOGf8YUbpBESvJ6BqPFM6gN5gKTP3GEjNXoCzRuVfEmGd lbm [file] NoJFL7S2GhZXPzIWeyNFV8ROsgGXWiGQJoZaTvPW 4AAv9AGsB0VVV5gPBeWk2VNeM9AHDWRrYgDH2GPXt= ID Date Data Source [id number] 11/17/2020 02:27:40 PM EDT [facility] Name Value Range Interpretation Code Description Data Lou rce(s) Supporting Document(s) Leukocytes [#/volume] in Blood by Automated count 8.2 10*3/uL 4-10 [facility] Erythrocytes [#/volume] in Blood by Automated count 3.30 10*6/uL 4.6- 6.[address] [facility] Hemoglobin [Mass/volume] in Blood 8.8 g/dL 13.5-[address] [facility] Hematocrit [Volume Fraction] of Blood by Automated count 26.5 % 4 1-[address] [facility] Erythrocyte mean corpuscular volume [Entitic volume] by Auto mated count 80.3 fL 80-96 [facility] Erythrocyte mean corpuscular hemoglobin [Entitic mass] by Automated count 26.6 pg 27-[address] [facility] Erythrocyte mean corpuscular hemoglobin concentration [Mass/volume] by Automated count 33.1 g/dL 32.0-36.[facility] Eryth[facility] distribution width [Ratio] by Automated count 19.2 % 11.5-14.[address] [facility] Platelets [#/volume] in Blood by Automated count 203 10*3/uL 150-400 [facility] Confirmed ID Date Data Source [id number] 11/17/2020 09:20:32 AM EDT [facility] US ABDOMEN LIMITED [id number] RESULTInte rpreted by:ALEX CarringtonROCEDURE INFORMATION: Exam: US [...] which has nodular contour. Series 1, image [id number] indicates normal portal hepatopetal flow of the [...] rce(s) Supporting Document(s) ID Date Data Source [id number] 11/17/2020 08:51:22 AM [facility] Name Value Range Interpretation Code Description [facility] PXORZo2sFaQWLhNh51/RLEioJJDsg9NxAIeiAUo0HKlkSAVoG7HvXDX7lD5bEYE9OXxFFdMfMaRxGqDx m [file] Oy6LUqS0VUK8jGMiXi3HWJjjIf4HSSXHW5HLIb== ID Date Data Source [id number] 11/17/2020 08:31:25 AM EDT [facility] Name Value Range Interpretation Code Description Data Lou rce(s) Supporting Document(s) Glucose [Mass/volume] in Capillary blood by Glucometer 133 mg/dL 70- 140 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 Erythrocytes [#/volume] in Blood by Automated count 3.00 10*6/uL 4.6- 6.[address] [facility] Hemoglobin [Mass/volume] in Blood 7.8 g/dL 13.5-[address] [facility] Hematocrit [Volume Fraction] of Blood by Automated count 24.0 % 4 1-[address] [facility] Erythrocyte mean corpuscular volume [Entitic volume] by Auto mated count 80.2 fL 80-96 [facility] Erythrocyte mean corpuscular hemoglobin [Entitic mass] by Automated count 26.1 pg 27-[address] [facility] Erythrocyte mean corpuscular hemoglobin concentration [Mass/volume] by Automated count 32.6 g/dL 32.0-36.0 [facility] Erythrocyte distribution width [Ratio] by Automated count 19.2 % 11.5-14.[address] [facility] Platelets [#/volume] in Blood by Automated count 165 10*3/uL 150-400 [facility] Differential cell count method - Blood [facility] Neutrophils/100 leukocytes in Blood by Automated count 62 % [facility] Lymphocytes/100 leukocytes in Blood by Automated count 13 % [facility] Monocytes/100 leukocytes in Blood by Automated count 21 % [facility] Eosinophils/100 leukocytes in Blood by Automated count 3 % [facility] Basophils/100 leukocytes in Blood by Automated count 1 % [facility] Neutrophils [#/volume] in Blood by Automated count 4.58 10*3/uL 1.8-[address] [facility] Lymphocytes [#/volume] in Blood by Automated count 0.99 10*3/uL 1.2-[address] [facility] Monocytes [#/volume] in Blood by Automated count 1.58 10*3/uL 0-0.[address] [facility] Eosinophils [#/volume] in Blood by Automated count 0.22 10*3/uL 0-0.5 [facility] [facility] Basophils [#/volume] in Blood by Automated count 0.04 10*3/uL 0-0.2 [facility] Nucleated erythrocytes/100 leukocytes [Ratio] in Blood by Automated count 0 /100{WBCs} 0-0 [facility] ID Date Data Source [id number] 11/17/2020 03:21:33 AM EDT [facility] Name Value Range Interpretation Code Description Data Lou rce(s) Supporting Document(s) Bicarbonate [Moles/volume] in Serum 27 mmol/L 22-29 [facility] Chloride [Moles/volume] in Serum or Plasma 97 mmol/L 98-107 [facility] Creatinine [Mass/volume] in Serum or Plasma 0.44 mg/dL 0.70-1.20 [facility] Glucose [Mass/volume] in Serum or Plasma 117 mg/dL 70-140 [facility] Potassium [Moles/volume] in Serum or Plasma 3.2 mmol/L 3.4-5.1 [facility] Sodium [Moles/volume] in Serum or Plasma 132 mmol/L 136-145 [facility] Urea nitrogen [Mass/volume] in Serum or Plasma 6 mg/dL 6-20 [facility] Anion gap 3 in Serum or Plasma 8 mmol/L 8-15 [facility] Osmolality of Serum or Plasma by calculation 273 mosm/kg 275-[address] [facility] [facility] Creatinine/Urea nitrogen [Mass Ratio] in Serum or Plasma 14 [facility] Calcium [Mass/volume] in Serum or Plasma 7.7 mg/dL 8.6-10.[address] [facility] Glomerular filtration rate/1.73 sq M pre dicted among non-blacks [Volume Rate/Area] in Serum or Plasma by Creatinine-based formula (MDRD) >[address] [facility] Glomerular filtration rate/1.73 sq M pre dicted among blacks [Volume Rate/Area] in Serum or Plasma by Creatinine-based formula (MDRD) >60 [facility] ID Date Data Source [id number] 11/17/2020 02:46:49 AM EDT [facility] Value Range Interpretation Code Description Data Lou rce(s) Supporting Document(s) Glucose [Mass/volume] in Capillary blood by Glucometer 132 mg/dL 70- 140 [facility] ID Date Data Source [id number] 11/16/2020 11:03:46 PM [facility] Value Range Interpretation Code Description Data Lou rce(s) Supporting Document(s) Glucose [Mass/volume] in Capillary blood by Glucometer 152 mg/dL 70- 140 [facility] ID Date Data Source [id number] 11/16/2020 07:34:41 PM [facility] Value Range Interpretation Code Description Data Lou rce(s) Supporting Document(s) Glucose [Mass/volume] in Capillary blood by Glucometer 135 mg/dL 70- 140 [facility] ID Date Data Source [id number] 11/16/2020 05:29:34 PM [facility] Value Range Interpretation Code Description Data Lou rce(s) Supporting Document(s) Glucose [Mass/volume] in Capillary blood by Glucometer 90 mg/dL 70- 140 [facility] ID Date Data Source [id number] 11/16/2020 04:15:48 PM [facility] Value Range Interpretation Code Description Data Lou rce(s) Supporting Document(s) Glucose [Mass/volume] in Capillary blood by Glucometer 218 mg/dL 70- 140 [facility] ID Date Data Source [id number] 11/16/2020 03:39:03 PM [facility] Value Range Interpretation Code Description Data Lou rce(s) Supporting Document(s) Leukocytes [#/volume] in Blood by Automated count 8.0 10*3/uL 4-10 [facility] Erythrocytes [#/volume] in Blood by Automated count 3.42 10*6/uL 4.6- 6.[address] [facility] [facility] Hemoglobin [Mass/volume] in Blood 8.9 g/dL 13.5-[address] [facility] [facility] Hematocrit [Volume Fraction] of Blood by Automated count 27.6 % 4 1-[address] [facility] [facility] Erythrocyte mean corpuscular volume [Entitic volume] by Auto mated count 80.8 fL 80-96 [facility] Erythrocyte mean corpuscular hemoglobin [Entitic mass] by Automated count 26.1 pg 27-[address] [facility] [facility] Erythrocyte mean corpuscular hemoglobin concentration [Mass/volume] by Automated count 32.3 g/dL 32.0-36.0 [facility] Erythrocyte distribution width [Ratio] by Automated count 19.1 % 11.5-14.[address] [facility] Platelets [#/volume] in Blood by Automated count 159 10*3/uL 150-400 [facility] Differential cell count method - Blood [facility] Neutrophils/100 leukocytes in Blood by Automated count 69 % [facility] Lymphocytes/100 leukocytes in Blood by Automated count 10 % [facility] Monocytes/100 leukocytes in Blood by Automated count 16 % [facility] Eosinophils/100 leukocytes in Blood by Automated count 4 % [facility] Basophils/100 leukocytes in Blood by Automated count 1 % [facility] Neutrophils [#/volume] in Blood by Automated count 5.58 10*3/uL 1.8-[address] [facility] Lymphocytes [#/volume] in Blood by Automated count 0.79 10*3/uL 1.2-[address] [facility] [facility] Monocytes [#/volume] in Blood by Automated count 1.32 10*3/uL 0-0.[address] [facility] Eosinophils [#/volume] in Blood by Automated count 0.31 10*3/uL 0-0.5 [facility] Basophils [#/volume] in Blood by Automated count 0.04 10*3/uL 0-0.2 [facility] Nucleated erythrocytes/100 leukocytes [Ratio] in Blood by Automated count 0 /100{WBCs} 0-0 [facility] ID Date Data Source [id number] 11/16/2020 11:51:13 AM [facility] Name Value Range Interpretation Code Description Data Lou rce(s) Supporting Document(s) Glucose [Mass/volume] in Capillary blood by Glucometer 106 mg/dL 70- 140 [facility] ID Date Data Source [id number] 11/16/2020 07:59:02 AM [facility] Name Value Range Interpretation Code Description Data Lou rce(s) Supporting Document(s) Glucose [Mass/volume] in Capillary blood by Glucometer 119 mg/dL 70- 140 [facility] ID Date Data Source [id number] 11/16/2020 05:48:16 AM EDT [facility] Name Value Range Interpretation Code Description Data Lou rce(s) Supporting Document(s) Glucose [Mass/volume] in Capillary blood by Glucometer 101 mg/dL 70- 140 [facility] ID Date Data Source [id number] 11/19/2020 09:27:00 AM EDT [facility] Surgical Pathology ReportName: JEFRY MORINMRN: [id number] Number: [id number] Date: 11/16/2020 00:00Received Date: 11/16/2020 11:32Physician(s): RON LINARES MD OZDEN, NURI,[facility] To:DONAL FUNEZFA[facility] FA[facility]VIEWpecimen(s) ReceivedA: Antrum biopsyClinical HistoryMelena.DiagnosisSTOMACH, ANTRUM, BIOPSY: MILD CHRONIC GASTRITIS. NO H. PYLORI IDENTIFIED. Electronically Signed By Kelle Ordaz MD, Attending Pathologist 109:27:42Professional services performed at [facility] Pathology Laboratory [facility], [address] [place] [address]. Unless 'gross-only'is specified, the final diagnosis is [...] and their pe rformance characteristics determined by [facility] Pathology department. They have not been cleared or approved by the USFood and Drug Administration. The FDA has determined that such clearanceor approval is not necessary. Name Value Range Interpretation Code Description Data Lou rce(s) Supporting Document(s) ID Date Data Source [id number] 11/16/2020 12:27:10 AM EDT [facility] Name Value Range Interpretation Code Description Data Lou rce(s) Supporting Document(s) Bicarbonate [Moles/volume] in Serum 21 mmol/L 22-[address] [facility] Chloride [Moles/volume] in Serum or Plasma 99 mmol/L 98-107 [facility] Creatinine [Mass/volume] in Serum or Plasma 0.54 mg/dL 0.70-1.[address] [facility] [facility] Glucose [Mass/volume] in Serum or Plasma 106 mg/dL 70-140 [facility] Potassium [Moles/volume] in Serum or Plasma 4.0 mmol/L 3.4-5.1 [facility] Sodium [Moles/volume] in Serum or Plasma 130 mmol/L 136-[address] [facility] [facility] Urea nitrogen [Mass/volume] in Serum or Plasma 8 mg/dL 6-20 [facility] Anion gap 3 in Serum or Plasma 11 mmol/L 8-15 [facility] Osmolality of Serum or Plasma by calculation 269 mosm/kg 275-300 [facility] Creatinine/Urea nitrogen [Mass Ratio] in Serum or Plasma 16 [facility] Calcium [Mass/volume] in Serum or Plasma 8.2 mg/dL 8.6-10.0 [facility] Glomerular filtration rate/1.73 sq M pre dicted among non-blacks [Volume Rate/Area] in Serum or Plasma by Creatinine-based formula (MDRD) >[address] [facility] Glomerular filtration rate/1.73 sq M pre dicted among blacks [Volume Rate/Area] in Serum or Plasma by Creatinine-based formula (MDRD) >60 [facility] ID Date Data Source [id number] 11/16/2020 12:16:14 AM EDT [facility] Name Value Range Interpretation Code Description Data Lou rce(s) Supporting Document(s) Leukocytes [#/volume] in Blood by Automated count 10.6 10*3/uL 4-[address] [facility] [facility] Erythrocytes [#/volume] in Blood by Automated count 3.43 10*6/uL 4.6- 6.[address] [facility] Hemoglobin [Mass/volume] in Blood 8.9 g/dL 13.5-[address] [facility] Hematocrit [Volume Fraction] of Blood by Automated count 27.7 % 4 1-[address] [facility] [facility] Erythrocyte mean corpuscular volume [Entitic volume] by Auto mated count 80.9 fL 80-96 [facility] Erythrocyte mean corpuscular hemoglobin [Entitic mass] by Automated count 25.9 pg 27-[address] [facility] [facility] Erythrocyte mean corpuscular hemoglobin concentration [Mass/volume] by Automated count 32.0 g/dL 32.0-36.0 [facility] Erythrocyte distribution width [Ratio] by Automated count 18.7 % 11.5-14.[address] [facility] [facility] Platelets [#/volume] in Blood by Automated count 136 10*3/uL 150-[address] [facility] [facility] Differential cell count method - Blood [facility] Neutrophils/100 leukocytes in Blood by Automated count 72 % [facility] Lymphocytes/100 leukocytes in Blood by Automated count 7 % [facility] Monocytes/100 leukocytes in Blood by Automated count 17 % [facility] Eosinophils/100 leukocytes in Blood by Automated count 3 % [facility] Basophils/100 leukocytes in Blood by Automated count 1 % [facility] Neutrophils [#/volume] in Blood by Automated count 7.64 10*3/uL 1.8-[address] [facility] [facility] Lymphocytes [#/volume] in Blood by Automated count 0.71 10*3/uL 1.2-[address] [facility] Monocytes [#/volume] in Blood by Automated count 1.83 10*3/uL 0-0.[address] [facility] Eosinophils [#/volume] in Blood by Automated count 0.34 10*3/uL 0-0.5 [facility] Basophils [#/volume] in Blood by Automated count 0.06 10*3/uL 0-0.2 [facility] Nucleated erythrocytes/100 leukocytes [Ratio] in Blood by Automated count 0 /100{WBCs} 0-0 [facility] ID Date Data Source [id number] 11/15/2020 11:51:31 PM EDT [facility] Name Value Range Interpretation Code Description Data Lou rce(s) Supporting Document(s) Glucose [Mass/volume] in Capillary blood by Glucometer 108 mg/dL 70- 140 [facility] ID Date Data Source [id number] 11/15[facility]2020 [facility]23[facility] Value Range Interpretation Code Description Data Lou rce(s) Supporting Document(s) [facility] OZJKFj4hKdXVWvSd99/FYNzyNTWvh3OuQQnmZYs2ZGlqMTStK4OuAVZ2zW4uKDH8IWxTBrQfXpQkWyB1 lbm PsMutQCzNbLSZiItbZUyOkBBroSgtfgTPvTE3TiUA2EYCfP06wBOXmJUVdI6QfEXZ8PBZ+Ja3QWOEyuP EzHD9EZhjM3O2QevxIHW1TtY/RUYYPHxso3jPbuTB7EElj6YGKPCBxZNNkLvEGohxrSl7+gdcQXLf3et HTA2DU85upGx/HEDyQV7JO/nisEjm8i0DE7n/61zB2 VO9O/fUvalPNddbVNr+lXxWXZ0CUbKdXu3Lq7yj6vQQKn1ui4B0p2jKThufHJRJTO4S57S92s4Vp/6ts 386LZfDaa5trd6sSnvRU89VrwYv9TC8eMdGwlwTLv5CLrHtLOeUZvJXUmgqLyAMSlE9wo2Bq3dEHoyNv A/ycg2W/RspAu5DmtELRqmY8NUmaGjUe9ovUlqqgUv SswN2Wvu4elnk3DYA3q+3AXXdum+aJOSqvflB0Bxom+3sZE6rdO9Vz4Dzzq2fOmmsNVK+kJQ9PAL3v5q Zs/6xtHyfAtNp7NXyn3QU8n41KLuy6cbJCue5rB8skUt7xl+WgztppWduD3orlA9q73Sr9FGY2nGH3g/ 8DwrUsOFPSPdTzc1hX7a2cNfFxEK35DgG3wTBNqLP1 dArpv4NwPEPpUvXRkgNNuX/vhZYz2hftcojdnFRRg5hgMeUWY+CtmIldrvxE4nNHtzEFGuXl361HmJdd Zunk++JLO0Lm52gI9UP7G1sknRDoykls8/ZLos1oDFI98gYB2g95LzBB5//MbUMU5/rfprbsMgcdJwff 8fRHEAAOH0VpeJkWGCkDZTH/BYfv61GLETNDj0JZDn [file] OTUzOTQ+MZ7nOWh+Ou8Yu0LjduM9rdWuVDzvLbm9Ii0QLNKZQ7YRTe== ID Date Data Source [id number] 11/15/2020 07:26:24 PM [facility] Value Range Interpretation Code Description Data Lou rce(s) Supporting Document(s) Glucose [Mass/volume] in Capillary blood by Glucometer 109 mg/dL 70- 140 [facility] ID Date Data Source [id number] 11/15/2020 04:11:20 PM [facility] Value Range Interpretation Code Description Data Lou rce(s) Supporting Document(s) Glucose [Mass/volume] in Capillary blood by Glucometer 111 mg/dL 70- 140 [facility] ID Date Data Source [id number] 11/15/2020 04:23:03 PM [facility] Value Range Interpretation Code Description Data Lou rce(s) Supporting Document(s) Albumin [Mass/volume] in Serum or Plasma by Bromocresol green (BCG) dye binding method 3.3 g/dL 3.5-5.[address] [facility] Bilirubin.total [Mass/volume] in Serum or Plasma 1.9 mg/dL <1.[address] Bilirubin.direct [Mass/volume] in Serum or Plasma 1.1 mg/dL <0.[address] [facility] Alkaline phosphatase [Enzymatic activity/volume] in Serum or Plasma 135 U/L 40-[address] [facility] Aspartate aminotransferase [Enzymatic activity/volume] in Serum or Plasma 267 U/L <[address] [facility] Alanine aminotransferase [Enzymatic activity/volume] in Seru m or Plasma 136 U/L <[address] [facility] Protein [Mass/volume] in Serum or Plasma 5.9 g/dL 6.4-8.[address] [facility] ID Date Data Source [id number] 11/15/2020 05:07:41 PM [facility] Value Range Interpretation Code Description Data Lou rce(s) Supporting Document(s) Leukocytes [#/volume] in Blood by Automated count 9.0 10*3/uL 4-10 [facility] Erythrocytes [#/volume] in Blood by Automated count 3.38 10*6/uL 4.6- 6.[address] [facility] Hemoglobin [Mass/volume] in Blood 9.0 g/dL 13.5-[address] [facility] Hematocrit [Volume Fraction] of Blood by Automated count 27.3 % 4 1-[address] [facility] Erythrocyte mean corpuscular volume [Entitic volume] by Auto mated count 80.8 fL 80-96 [facility] Erythrocyte mean corpuscular hemoglobin [Entitic mass] by Automated count 26.7 pg 27-[address] [facility] Erythrocyte mean corpuscular hemoglobin concentration [Mass/volume] by Automated count 33.0 g/dL 32.0-36.0 [facility] Erythrocyte distribution width [Ratio] by Automated count 18.6 % 11.5-14.[address] [facility] Platelets [#/volume] in Blood by Automated count 124 10*3/uL 150-[address] [facility] Confirmed Differential cell count method - Blood [facility] Neutrophils/100 leukocytes in Blood by Automated count 76 % [facility] Lymphocytes/100 leukocytes in Blood by Automated count 6 % [facility] Monocytes/100 leukocytes in Blood by Automated count 14 % [facility] Eosinophils/100 leukocytes in Blood by Automated count 3 % [facility] Basophils/100 leukocytes in Blood by Automated count 1 % [facility] Neutrophils [#/volume] in Blood by Automated count 6.78 10*3/uL 1.8-[address] [facility] Lymphocytes [#/volume] in Blood by Automated count 0.56 10*3/uL 1.2-[address] [facility] Monocytes [#/volume] in Blood by Automated count 1.26 10*3/uL 0-0.[address] [facility] Eosinophils [#/volume] in Blood by Automated count 0.29 10*3/uL 0-0.5 [facility] Basophils [#/volume] in Blood by Automated count 0.06 10*3/uL 0-0.2 [facility] Nucleated erythrocytes/100 leukocytes [Ratio] in Blood by Automated count 0 /100{WBCs} 0-0 [facility] ID Date Data Source [id number] 11/15/2020 04:56:38 PM [facility] Name Value Range Interpretation Code Description Data Lou rce(s) Supporting Document(s) Hepatitis C virus Ab [Presence] in Serum or Plasma by Immuno assay Non Reactive [facility] No serological evidence of active infect ion. If recent exposure is suspected, test for HCV RNA. ID Date Data Source [id number] 11/15/2020 07:13:54 AM [facility] Name Value Range Interpretation Code Description Data Lou rce(s) Supporting Document(s) Bicarbonate [Moles/volume] in Serum 19 mmol/L 22-[address] [facility] Chloride [Moles/volume] in Serum or Plasma 102 mmol/L 98-107 [facility] Creatinine [Mass/volume] in Serum or Plasma 0.69 mg/dL 0.70-1.20 [facility] Glucose [Mass/volume] in Serum or Plasma 112 mg/dL 70-140 [facility] Potassium [Moles/volume] in Serum or Plasma 3.9 mmol/L 3.4-5.1 [facility] Sodium [Moles/volume] in Serum or Plasma 130 mmol/L 136-145 [facility] Urea nitrogen [Mass/volume] in Serum or Plasma 13 mg/dL 6-20 [facility] Anion gap 3 in Serum or Plasma 9 mmol/L 8-15 [facility] Osmolality of Serum or Plasma by calculation 270 mosm/kg 275-300 [facility] Creatinine/Urea nitrogen [Mass Ratio] in Serum or Plasma 19 [facility] Calcium [Mass/volume] in Serum or Plasma 8.2 mg/dL 8.6-10.0 [facility] Glomerular filtration rate/1.73 sq M pre dicted among non-blacks [Volume Rate/Area] in Serum or Plasma by Creatinine-based formula (MDRD) >[address] [facility] Glomerular filtration rate/1.73 sq M pre dicted among blacks [Volume Rate/Area] in Serum or Plasma by Creatinine-based formula (MDRD) >60 [facility] ID Date Data Source [id number] 11/15/2020 07:47:52 AM EDT [facility] Name Value Range Interpretation Code Description Data Lou e(s) Supporting Document(s) Leukocytes [#/volume] in Blood by Automated count 7.5 10*3/uL 4-10 [facility] Erythrocytes [#/volume] in Blood by Automated count 3.25 10*6/uL 4.6- 6.1 [facility] Hemoglobin [Mass/volume] in Blood 8.5 g/dL 13.5-[address] [facility] Hematocrit [Volume Fraction] of Blood by Automated count 26.2 % 4 1-53 [facility] Erythrocyte mean corpuscular volume [Entitic volume] by Auto mated count 80.6 fL 80-96 [facility] Erythrocyte mean corpuscular hemoglobin [Entitic mass] by Automated count 26.2 pg 27-[address] [facility] Erythrocyte mean corpuscular hemoglobin concentration [Mass/volume] by Automated count 32.5 g/dL 32.0-36.0 [facility] Erythrocyte distribution width [Ratio] by Automated count 18.5 % 11.5-14.[address] [facility] Platelets [#/volume] in Blood by Automated count 123 10*3/uL 150-[address] [facility] Confirmed Differential cell count method - Blood [facility] Neutrophils/100 leukocytes in Blood by Automated count 72 % [facility] Lymphocytes/100 leukocytes in Blood by Automated count 10 % [facility] Monocytes/100 leukocytes in Blood by Automated count 13 % [facility] Eosinophils/100 leukocytes in Blood by Automated count 4 % [facility] Basophils/100 leukocytes in Blood by Automated count 1 % [facility] Neutrophils [#/volume] in Blood by Automated count 5.47 10*3/uL 1.8-[address] [facility] Lymphocytes [#/volume] in Blood by Automated count 0.72 10*3/uL 1.2-[address] [facility] Monocytes [#/volume] in Blood by Automated count 0.97 10*3/uL 0-0.[address] [facility] Eosinophils [#/volume] in Blood by Automated count 0.32 10*3/uL 0-0.5 [facility] Basophils [#/volume] in Blood by Automated count 0.05 10*3/uL 0-0.2 [facility] Nucleated erythrocytes/100 leukocytes [Ratio] in Blood by Automated count 0 /100{WBCs} 0-0 [facility] ID Date Data Source [id number] 11/15/2020 12:33:23 PM [facility] Name Value Range Interpretation Code Description Data Lou rce(s) Supporting Document(s) Phosphate [Mass/volume] in Serum or Plasma 2.4 mg/dL 2.5-4.5 [facility] ID Date Data Source [id number] 11/14/2020 11:16:15 PM [facility] Name Value Range Interpretation Code Description Data Lou rce(s) Supporting Document(s) [facility] XQFHOq2iFdMMGbMd41/CKWurCKTil9PnWKmxRMv6JDotAMUeE1CjRZD4tL3eIER8PRaIIpWlMfRkAfO5 lbm PhXrsPPlCpYUVwCfmUWgHdCBiqYjuwoJHlBW8KdNN5DZSkN97fJVCkGHFeN4ErIGB6EcI+Mw2IVPGioJ WpXM8JHwwD7N5jCuuIMt0+0h2BNA62ouoXydb5kEQTKrOgYLH4Ae2ri3IM0W2wZT+T2c02N8/DpirDL6 0jzzVAuXFeyz3hvq8ze0tMTPJ+93ygjFWVvkB98+zP LEMA6Y30+9/UvJvnzrrN/2SdyAOuEztR+UD+p6e/tpHBxav5kBH6yTvuQa+5QWAxl34VXyJB19Xvr+ri d6U9L2/YvbZCgB1CUPN1Bre1LiF7mRZkgZDLxjlIa4rXp+ZIl0BpuX9I5hBghOKSsCGBhwEy7oMBuxia qlrZeVvY0edIGGRhtCGhwXPKLJ1Qgtmm8PrTlmF0y0 E+fD1s3RB+uj22zmRmy9ZnHEfhwwXWvh7uKxywzE9D0HRUWv3CWxhDbDXcrP0xrNUBq4F+qwKu9Jd+zN O94kRyko5ozTg9DacS6tftUOlgd8LM+6iytaj3rV2mA+xZ0I22M1oKtcr17psAiQFsfxdD53P29FtBwr DmTwuMl1DJJJyVnCBnp+waPpVHPgav613e8AJxceqx yzJbnPfZTdpbsjhUGKulOs/+bVkI2fV+WGv0zVDnEebRT/GKAZ5mc+/guu9dTNZHQNt9PVjST3vWlcvU I2lxMaTDqfdHNdpflGFHxGq3sZYwKXygkCTn8MBA5gfyst9oj5VbX1zi2POpOu3YaAdzvTB/HWrLLkrQ iChte6qbUOk1RmdO1oCtTJUrL91/TiE9v0RZUQcQc2 ECWzyoLCQOyo6gG4C04Tw4XeMfkYp4BoxGphtmdyOIkDg4xiAD2Cs6F9KSZRSpJ4EWih7flhTeMb+Mars [file] XvCgo8UmzdWOH6WNZsHuIdRNFdSdDyDY2cUVWWRf2+AXleyOPhsNemYPDIDdG5VWN6QQlfDMFNHk9I ID Date Data Source [id number] 11/15/2020 12:29:07 AM [facility] Name Value Range Interpretation Code Description Data Lou rce(s) Supporting Document(s) Leukocytes [#/volume] in Blood by Automated count 7.5 10*3/uL 4-10 [facility] Erythrocytes [#/volume] in Blood by Automated count 3.11 10*6/uL 4.6- 6.[address] [facility] Hemoglobin [Mass/volume] in Blood 8.0 g/dL 13.5-[address] [facility] Hematocrit [Volume Fraction] of Blood by Automated count 24.9 % 4 1-[address] [facility] Erythrocyte mean corpuscular volume [Entitic volume] by Auto mated count 80.0 fL 80-96 [facility] Erythrocyte mean corpuscular hemoglobin [Entitic mass] by Automated count 25.8 pg 27-[address] [facility] Erythrocyte mean corpuscular hemoglobin concentration [Mass/volume] by Automated count 32.3 g/dL 32.0-36.[facility] Erythrocyte distribution width [Ratio] by Automated count 18.7 % 11.5-14.[address] [facility] Platelets [#/volume] in Blood by Automated count 120 10*3/uL 150-[address] [facility] Confirmed Differential cell count method - Blood [facility] Neutrophils/100 leukocytes in Blood by Automated count 71 % [facility] Lymphocytes/100 leukocytes in Blood by Automated count 11 % [facility] Monocytes/100 leukocytes in Blood by Automated count 13 % [facility] [facility] Eosinophils/100 leukocytes in Blood by Automated count 4 % [facility] Basophils/100 leukocytes in Blood by Automated count 1 % [facility] Neutrophils [#/volume] in Blood by Automated count 5.34 10*3/uL 1.8-[address] [facility] Lymphocytes [#/volume] in Blood by Automated count 0.83 10*3/uL 1.2-[address] [facility] Monocytes [#/volume] in Blood by Automated count 0.96 10*3/uL 0-0.[address] [facility] Eosinophils [#/volume] in Blood by Automated count 0.32 10*3/uL 0-0.5 [facility] Basophils [#/volume] in Blood by Automated count 0.06 10*3/uL 0-0.2 [facility] Nucleated erythrocytes/100 leukocytes [Ratio] in Blood by Automated count 0 /100{WBCs} 0-0 [facility] ID Date Data Source [id number] 11/14/2020 03:50:27 PM EDT [facility] Name Value Range Interpretation Code Description Data Lou rce(s) Supporting Document(s) History and Physical [facility] WQQNIk3bHnABZnGu99/KAUecONSyz2QpXMwgFWp4BGcfFOMcC9SjGWL4dM3fJWD0SPpKCoCvNtGxGdA3 lbm [file] AgICAgICAgICAgICAgICAgICAgICAgICAgICAgICAgICAgICAgICAgICAgICAgICAgICAgICAgICAgIC AgICAgICAgICAgICAgICAgICAgICAgICAgICAgICAgICAgICAgICANCiAgICAgICAgICAgICAgICAgIC AgICAgICAgICAgICAgICAgICAgICAgICAgICAgICAg ICAgICAgICAgICAgICAgICAgICAgICAgICAgICAgICAgICAgICAgICAgICAgICAgICANCiAgICAgICAg ICAgICAgICAgICAgICAgICAgICAgICAgICAgICAgICAgICAgICAgICAgICAgICAgICAgICAgICAgICAg ICAgICAgICAgICAgICAgICAgICAgICAgICAgICAgIC ANCiAgICAgICAgICAgICAgICAgICAgICAgICAgICAgICAgICAgICAgICAgICAgICAgICAgICAgICAgIC AgICAgICAgICAgICAgICAgICAgICAgICAgICAgICAgICAgICAgICAgICANCiAgICAgICAgICAgICAgIC AgICAgICAgICAgICAgICAgICAgICAgICAgICAgICAg ICAgICAgICAgICAgICAgICAgICAgICAgICAgICAgICAgICAgICAgICAgICAgICAgICAgICANCiAgICAg ICAgICAgICAgICAgICAgICAgICAgICAgICAgICAgICAgICAgICAgICAgICAgICAgICAgICAgICAgICAg ICAgICAgICAgICAgICAgICAgICAgICAgICAgICAgIC AgICANCiAgICAgICAgICAgICAgICAgICAgICAgICAgICAgICAgICAgICAgICAgICAgICAgICAgICAgIC AgICAgICAgICAgICAgICAgICAgICAgICAgICAgICAgICAgICAgICAgICAgICANCiAgICAgICAgICAgIC AgICAgICAgICAgICAgICAgICAgICAgICAgICAgICAg ICAgICAgICAgICAgICAgICAgICAgICAgICAgICAgICAgICAgICAgICAgICAgICAgICAgICAgICANCiAg ICAgICAgICAgICAgICAgICAgICAgICAgICAgICAgICAgICAgICAgICAgICAgICAgICAgICAgICAgICAg ICAgICAgICAgICAgICAgICAgICAgICAgICAgICAgIC AgICAgICANCiAgICAgICAgICAgICAgICAgICAgICAgICAgICAgICAgICAgICAgICAgICAgICAgICAgIC AgICAgICAgICAgICAgICAgICAgICAgICAgICAgICAgICAgICAgICAgICAgICAgICANCjw/dLUdG6bqfY BuxuC5W9mkNo7ZXc6ZXV6of9FgSGJtIIcwvqBeIvxZ YgHxDRJqAywPWfd8SPxwBH3NjBEhN0ZqZ2GnCXhbWY9GNYLuUVSsiXZcHQSfGKIxCnE7ESBsHDotVZ6R rUSyQPphBERfSLTzZvYvVQTuMKBzEJScHAXeKYBYCCKvZNMhTrCpHZzuEB9Dj5HhvRH9ZBt+Sv7JVD4g o0EfBKijIzEdCW8efq4QKJsCAiWwG8ZtzgV0PKD7JB OcXl2HWWLmMOEuoDYiTzQqQANVImGuD1MbmM24SRXKEd3+EQesbgNvKupDPqA3GOYej2YuZBg5QU5DGG HgHYa3tQEoSAAQQKH9JAd0rzGbRCJaeRRgEVGKYABvnHZ1EtP3PuNpXnMpVWS1USQlTG1bNAbgSM5CTC I4OIlpCUJiVEVtW1yWKjKkYCAgLLKrqKlvVA3ETdDv G5EghrPhrMRwHnNkVKILUq0+UVwdliPlEdvRCkQ0JOFgz9EmIUu7MB5LOCWwMZyqIK0FGUMyfM5tXYjz EA7KUiWsBJPfEMZSRyIbU76evCUuJVk3C5HfGdPgDEBaEqlgJPOjKLcbZaOaZMLtRfHhNBxsNB3+ID4+ CNrtYN0CLEnlvsDpCVCuBd9YHBTnRDBaCN5eGSJlSU LtC5U0gZvdRDGYSoVpX6sbypcjVC3rGONgP920qNdiggVnQEH0QGUaDy2JCPLzOMA3XKZvoJAsBaWzLH IIDArlZT1QvSVnOYW8hI8rDZpoZEVpPTWqF3aVGsXyqMddKL42pKxjrsKhuPXmQTk+Op7JJO3rm4CeYE v6hgDrYNvyCPK3XLdyGGBoGWXdTCNsNLO0HLV2HFMI AhWdOVOwVQYnLJsjOEIjDCZqvn6QWODdIVJtDTA8YGEpJFToJEAfQDgsETIgCUD8CuDrCMPlFJJyJQ6E RtVrGAUsDIVaNSxcTJZmKKGhjq9WKPZvGFRiMSR9QKCaPUTiJUStOWigMKBsXBM2UNjmDLHuTCIjTB5Q TzOlMYCrHVh3VQBfVVCgNQZwix5NHIWiTYBzFle6WY HgXERvBEJcMUkkMPHhQFRgLAP5LHZvIDNzUK7NGtSeYDTfTAJfCzPyDQTiRIKhxa2DZPIyNJZqMnaqFy UqOTNfWTUwFPeaIIHdGGEyZWE2SEVsDXOtDN2NLyKcNLGrTKOyRKQkULMwUWGoom7MLNUiOVFtQTP2Kc WnNNSyAKDuXNlwAGEzUBU1PQF8LDQcLBHpHJ3JJvKc ZNCcOIQ5ODHwQLPhIHHjys7TRUAxPZWuDufkEdOvGAXbCKOpTOavNVXmTIM6ZUy9WIZxRQYxUW9CSvFw OQFmDKzwKOukNOJvPMScbf8BAAJlZDIsSOL5ZbUoFBQwTCFsBKidGJGnSNE3FbK3VQKeJMRlTN1COyTa QLOoCMi3LismLYTuIDZcaw7CXVSkWVNbVHSgWDCmSE LgSTYfDXedFIQeGWOyBZp8XLUfWTOzKC3JBwXwJWVfRjK2ENLbCEEyTJQrvw5ITVCrYDFrHHl7TWVcJO DzIRNhGJojGMPzMFMqAzQrSGSuWVBbMA2OXsVrDIWlVyW4LlurSIRlNDPedq2VEMGjSZFqEbf1YnKsYP RcKEQjEWokYVYoRBYeEGJ3PXUkEQSpBO6JVrEuUDCl PbNcMxOlVHFoCPNifv5JYUOpEDYdCTCiNbDuQPAfUNCyEEqjPDWbMKW1Wyx4XFMkMETkYB6SDaUrCJZt VrF6XvNvMXGnOIOlub3LYRYgTDRtXTUcOBZtLRObUHHuVYgfHMJsWWD5NCy2EYCiBWSjZT5GSqOpKAOz DbH6BQJeFYNqVBWrte3MZGWeRREuLeD8JMJbIFHoGG LdYQo8ieAuxPIbTZv9PY7XC5HtovUnAguQOt2Dk579SBL6PVCeMm0OK7hsLh7eGIFiBWMAJh2MNDk0Lm GqCRV4TSY9XeYoGeC1WhC7OglwY4OqFtWgQqS6CYW+THvlWrI6PwObPUamZYOjCJU8ENdtJqE9QpUbJd VjDOToBJ3rLABQJz0+HSghrKEedChySQLGUhP7HQM3JEwcWIAQRr9L ID Date Data Source [id number] 11/14/2020 05:33:49 PM EDT [facility] Name Value Range Interpretation Code Description Data Lou rce(s) Supporting Document(s) Albumin [Mass/volume] in Serum or Plasma by Bromocresol green (BCG) dye binding method 3.2 g/dL 3.5-5.[address] [facility] Bilirubin.total [Mass/volume] in Serum or Plasma 2.1 mg/dL <1.[address] [facility] Calcium [Mass/volume] in Serum or Plasma 7.9 mg/dL 8.6-10.[address] [facility] Chloride [Moles/volume] in Serum or Plasma 100 mmol/L 98-107 [facility] Creatinine [Mass/volume] in Serum or Plasma 0.64 mg/dL 0.70-1.[address] [facility] Glucose [Mass/volume] in Serum or Plasma 94 mg/dL 70-140 [facility] Alkaline phosphatase [Enzymatic activity/volume] in Serum or Plasma 123 U/L 40-129 [facility] Potassium [Moles/volume] in Serum or Plasma 3.7 mmol/L 3.4-5.1 [facility] Protein [Mass/volume] in Serum or Plasma 5.8 g/dL 6.4-8.[address] [facility] Sodium [Moles/volume] in Serum or Plasma 130 mmol/L 136-[address] [facility] Aspartate aminotransferase [Enzymatic activity/volume] in Serum or Plasma 325 U/L <[address] [facility] Urea nitrogen [Mass/volume] in Serum or Plasma 13 mg/dL 6-20 [facility] Osmolality of Serum or Plasma by calculation 269 mosm/kg 275-[address] [facility] Creatinine/Urea nitrogen [Mass Ratio] in Serum or Plasma 21 [facility] Bicarbonate [Moles/volume] in Serum 21 mmol/L 22-[address] [facility] Alanine aminotransferase [Enzymatic activity/volume] in Seru m or Plasma 127 U/L <[address] [facility] Anion gap 3 in Serum or Plasma 9 mmol/L 8-15 [facility] Glomerular filtration rate/1.73 sq M pre dicted among non-blacks [Volume Rate/Area] in Serum or Plasma by Creatinine-based formula (MDRD) >[address] [facility] Glomerular filtration rate/1.73 sq M pre dicted among blacks [Volume Rate/Area] in Serum or Plasma by Creatinine-based formula (MDRD) >60 [facility] ID Date Data Source [id number] 11/14/2020 05:33:49 PM [facility] Name Value Range Interpretation Code Description Data Luo rce(s) Supporting Document(s) Magnesium [Mass/volume] in Serum or Plasma 2.5 mg/dL 1.6-2.6 [facility] ID Date Data Source [id number] 11/14/2020 05:33:49 PM [facility] Value Range Interpretation Code Description Data Lou rce(s) Supporting Document(s) Phosphate [Mass/volume] in Serum or Plasma 1.3 mg/dL 2.5-4.5 [facility] ID Date Data Source [id number] 11/14/2020 06:06:06 PM [facility] Value Range Interpretation Code Description Data Lou rce(s) Supporting Document(s) Leukocytes [#/volume] in Blood by Automated count 7.8 10*3/uL 4-10 [facility] Erythrocytes [#/volume] in Blood by Automated count 3.15 10*6/uL 4.6- 6.1 [facility] Hemoglobin [Mass/volume] in Blood 8.3 g/dL 13.5-[address] [facility] Hematocrit [Volume Fraction] of Blood by Automated count 25.4 % 4 1-53 [facility] Erythrocyte mean corpuscular volume [Entitic volume] by Auto mated count 80.6 fL 80-96 [facility] Erythrocyte mean corpuscular hemoglobin [Entitic mass] by Automated count 26.4 pg 27-[address] [facility] Erythrocyte mean corpuscular hemoglobin concentration [Mass/volume] by Automated count 32.8 g/dL 32.0-36.0 [facility] Erythrocyte distribution width [Ratio] by Automated count 18.5 % 11.5-14.[address] [facility] Platelets [#/volume] in Blood by Automated count 116 10*3/uL 150-[address] [facility] Confirmed Differential cell count method - Blood [facility] Neutrophils/100 leukocytes in Blood by Automated count 76 % [facility] Lymphocytes/100 leukocytes in Blood by Automated count 8 % [facility] Monocytes/100 leukocytes in Blood by Automated count 13 % [facility] Eosinophils/100 leukocytes in Blood by Automated count 2 % [facility] Basophils/100 leukocytes in Blood by Automated count 1 % [facility] Neutrophils [#/volume] in Blood by Automated count 5.95 10*3/uL 1.8-[address] [facility] Lymphocytes [#/volume] in Blood by Automated count 0.63 10*3/uL 1.2-[address] [facility] Monocytes [#/volume] in Blood by Automated count 1.05 10*3/uL 0-0.[address] [facility] Eosinophils [#/volume] in Blood by Automated count 0.19 10*3/uL 0-0.5 [facility] Basophils [#/volume] in Blood by Automated count 0.04 10*3/uL 0-0.2 [facility] Nucleated erythrocytes/100 leukocytes [Ratio] in Blood by Automated count 0 /100{WBCs} 0-0 [facility] ID Date Data Source [id number] [facility]/14[facility] Value Range Interpretation Code Description Data Lou rce(s) Supporting Document(s) Ammonia [Moles/volume] in Plasma 86 umol/L 16-[address] [facility] ID Date Data Source [id number] 11/14/2020 08:19:36 AM [facility] Name Value Range Interpretation Code Description Data Lou rce(s) Supporting Document(s) Bicarbonate [Moles/volume] in Serum 21 mmol/L 22-[address] [facility] Chloride [Moles/volume] in Serum or Plasma 99 mmol/L 98-107 [facility] Confirmed Creatinine [Mass/volume] in Serum or Plasma 0.65 mg/dL 0.70-1.[address] [facility] Glucose [Mass/volume] in Serum or Plasma 97 mg/dL 70-140 [facility] Potassium [Moles/volume] in Serum or Plasma 3.0 mmol/L 3.4-5.1 [facility] Confirmed Sodium [Moles/volume] in Serum or Plasma 130 mmol/L 136-[address] [facility] Confirmed Urea nitrogen [Mass/volume] in Serum or Plasma 15 mg/dL 6-20 [facility] Anion gap 3 in Serum or Plasma 11 mmol/L 8-15 [facility] Confirmed Osmolality of Serum or Plasma by calculation 271 mosm/kg 275-[address] [facility] Confirmed Creatinine/Urea nitrogen [Mass Ratio] in Serum or Plasma 22 [facility] Calcium [Mass/volume] in Serum or Plasma 7.8 mg/dL 8.6-10.0 [facility] Glomerular filtration rate/1.73 sq M pre dicted among non-blacks [Volume Rate/Area] in Serum or Plasma by Creatinine-based formula (MDRD) >[address] [facility] Glomerular filtration rate/1.73 sq M pre dicted among blacks [Volume Rate/Area] in Serum or Plasma by Creatinine-based formula (MDRD) >60 [facility] ID Date Data Source [id number] 11/14/2020 08:31:17 AM EDT [facility] Name Value Range Interpretation Code Description Data Lou rce(s) Supporting Document(s) Leukocytes [#/volume] in Blood by Automated count 6.9 10*3/uL 4-10 [facility] Erythrocytes [#/volume] in Blood by Automated count 2.97 10*6/uL 4.6- 6.1 [facility] Hemoglobin [Mass/volume] in Blood 7.9 g/dL 13.5-18 [facility] Hematocrit [Volume Fraction] of Blood by Automated count 23.7 % 4 1-53 [facility] Erythrocyte mean corpuscular volume [Entitic volume] by Auto mated count 79.8 fL 80-[address] [facility] Erythrocyte mean corpuscular hemoglobin [Entitic mass] by Automated count 26.5 pg 27-33 [facility] Erythrocyte mean corpuscular hemoglobin concentration [Mass/volume] by Automated count 33.2 g/dL 32.0-36.0 [facility] Erythrocyte distribution width [Ratio] by Automated count 18.9 % 11.5-14.[address] [facility] Platelets [#/volume] in Blood by Automated count 99 10*3/uL 150-[address] [facility] Confirmed Differential cell count method - Blood [facility] Neutrophils/100 leukocytes in Blood by Automated count 77 % [facility] Lymphocytes/100 leukocytes in Blood by Automated count 7 % [facility] Monocytes/100 leukocytes in Blood by Automated count 12 % [facility] Eosinophils/100 leukocytes in Blood by Automated count 3 % [facility] Basophils/100 leukocytes in Blood by Automated count 1 % [facility] Neutrophils [#/volume] in Blood by Automated count 5.45 10*3/uL 1.8-[address] [facility] Lymphocytes [#/volume] in Blood by Automated count 0.47 10*3/uL 1.2-[address] [facility] Monocytes [#/volume] in Blood by Automated count 0.80 10*3/uL 0-0.8 [facility] Eosinophils [#/volume] in Blood by Automated count 0.18 10*3/uL 0-0.5 [facility] Basophils [#/volume] in Blood by Automated count 0.03 10*3/uL 0-0.2 [facility] Nucleated erythrocytes/100 leukocytes [Ratio] in Blood by Automated count 0 /100{WBCs} 0-0 [facility] ID Date Data Source [id number] 11/14/2020 11:09:27 AM [facility] Value Range Interpretation Code Description Data Lou rce(s) Supporting Document(s) Magnesium [Mass/volume] in Serum or Plasma 2.6 mg/dL 1.6-2.6 [facility] ID Date Data Source [id number] 11/14/2020 11:09:27 AM [facility] Value Range Interpretation Code Description Data Lou rce(s) Supporting Document(s) Phosphate [Mass/volume] in Serum or Plasma 1.6 mg/dL 2.5-4.5 [facility] ID Date Data Source [id number] 11/13/2020 11:52:58 PM [facility] Value Range Interpretation Code Description Data Lou rce(s) Supporting Document(s) ABO and Rh group [Type] in Blood [facility] Blood bank comment [facility] ID Date Data Source [id number] 11/13/2020 09:59:28 PM EDT [facility] Name Value Range Interpretation Code Description Data Lou rce(s) Supporting Document(s) Sodium [Moles/volume] in Blood 132 mmol/L 136-[address] [facility] Potassium [Moles/volume] in Blood 3.1 mmol/L 3.4-5.1 [facility] Chloride [Moles/volume] in Blood 97 mmol/L 98-107 [facility] Carbon dioxide, total [Moles/volume] in Blood 21 mmol/L 22-29 [facility] Calcium.ionized [Moles/volume] in Blood 1.19 mmol/L 1.13-1.32 [facility] Glucose [Mass/volume] in Blood 115 mg/dL 70-140 [facility] Urea nitrogen [Mass/volume] in Blood 15 mg/dL 6-20 [facility] Creatinine [Mass/volume] in Blood 0.7 mg/dL 0.70-1.20 [facility] Hematocrit [Volume Fraction] of Blood 22 % 41-53 [facility] Hemoglobin [Mass/volume] in Blood by calculation 7.5 g/dL 13.5-18.0 [facility] ID Date Data Source [id number] 11/13/2020 09:59:57 PM EDT [facility] Name Value Range Interpretation Code Description Data Lou rce(s) Supporting Document(s) Leukocytes [#/volume] in Blood by Automated count 7.0 10*3/uL 4-10 [facility] Erythrocytes [#/volume] in Blood by Automated count 2.58 10*6/uL 4.6- 6.1 [facility] Hemoglobin [Mass/volume] in Blood 7.0 g/dL 13.5-18 [facility] Hematocrit [Volume Fraction] of Blood by Automated count 20.6 % 4 1-53 [facility] Called to and read back by Zeny cintron [employer] [id number] [place] [id number] Erythrocyte mean corpuscular volume [Entitic volume] by Auto mated count 79.5 fL 80-[address] [facility] Erythrocyte mean corpuscular hemoglobin [Entitic mass] by Automated count 27.1 pg 27-33 [facility] Erythrocyte mean corpuscular hemoglobin concentration [Mass/volume] by Automated count 34.0 g/dL 32.0-36.0 [facility] Erythrocyte distribution width [Ratio] by Automated count 19.9 % 11.5-14.[address] [facility] Platelets [#/volume] in Blood by Automated count 102 10*3/uL 150-[address] [facility] Differential cell count method - Blood [facility] Neutrophils/100 leukocytes in Blood by Automated count 78 % [facility] Lymphocytes/100 leukocytes in Blood by Automated count 7 % [facility] Monocytes/100 leukocytes in Blood by Automated count 13 % [facility] Eosinophils/100 leukocytes in Blood by Automated count 1 % [facility] Basophils/100 leukocytes in Blood by Automated count 1 % [facility] Neutrophils [#/volume] in Blood by Automated count 5.50 10*3/uL 1.8-[address] [facility] Lymphocytes [#/volume] in Blood by Automated count 0.47 10*3/uL 1.2-[address] [facility] Monocytes [#/volume] in Blood by Automated count 0.89 10*3/uL 0-0.[address] [facility] Eosinophils [#/volume] in Blood by Automated count 0.09 10*3/uL 0-0.5 [facility] Basophils [#/volume] in Blood by Automated count 0.04 10*3/uL 0-0.2 [facility] Nucleated erythrocytes/100 leukocytes [Ratio] in Blood by Automated count 0 /100{WBCs} 0-0 [facility] ID Date Data Source [id number] 11/13/2020 10:08:20 PM [facility] Value Range Interpretation Code Description Data Lou rce(s) Supporting Document(s) Prothrombin time (PT) 16.6 s 12.5-14.[address] [facility] INR in Platelet poor plasma by Coagulation assay 1.32 [facility] Routine intensity oral anticoagulation I NR is typically 2.0-3.0. Target INR must be clinically individualized. ID Date Data Source [id number] 11/13/2020 10:17:51 PM [facility] Value Range Interpretation Code Description Data Lou rce(s) Supporting Document(s) Lipase [Enzymatic activity/volume] in Serum or Plasma 44 U/L 13-[address] [facility] ID Date Data Source [id number] 11/13/2020 10:17:51 PM [facility] Value Range Interpretation Code Description Data Lou rce(s) Supporting Document(s) Albumin [Mass/volume] in Serum or Plasma by Bromocresol green (BCG) dye binding method 3.0 g/dL 3.5-5.[address] [facility] Bilirubin.total [Mass/volume] in Serum or Plasma 1.7 mg/dL <1.[address] [facility] Calcium [Mass/volume] in Serum or Plasma 7.8 mg/dL 8.6-10.[address] [facility] Chloride [Moles/volume] in Serum or Plasma 97 mmol/L 98-[address] [facility] Creatinine [Mass/volume] in Serum or Plasma 0.66 mg/dL 0.70-1.[address] [facility] Glucose [Mass/volume] in Serum or Plasma 115 mg/dL 70-140 [facility] Alkaline phosphatase [Enzymatic activity/volume] in Serum or Plasma 127 U/L 40-129 [facility] Potassium [Moles/volume] in Serum or Plasma 3.1 mmol/L 3.4-5.[address] [facility] Protein [Mass/volume] in Serum or Plasma 5.5 g/dL 6.4-8.[address] [facility] Sodium [Moles/volume] in Serum or Plasma 128 mmol/L 136-145 [facility] Aspartate aminotransferase [Enzymatic activity/volume] in Serum or Plasma 189 U/L <[address] [facility] Urea nitrogen [Mass/volume] in Serum or Plasma 16 mg/dL 6-20 [facility] Osmolality of Serum or Plasma by calculation 269 mosm/kg 275-300 [facility] Creatinine/Urea nitrogen [Mass Ratio] in Serum or Plasma 24 [facility] Bicarbonate [Moles/volume] in Serum 22 mmol/L 22-29 [facility] Alanine aminotransferase [Enzymatic activity/volume] in Seru m or Plasma 74 U/L <[address] [facility] Anion gap 3 in Serum or Plasma 9 mmol/L 8-15 [facility] Glomerular filtration rate/1.73 sq M pre dicted among non-blacks [Volume Rate/Area] in Serum or Plasma by Creatinine-based formula (MDRD) >[address] [facility] Glomerular filtration rate/1.73 sq M pre dicted among blacks [Volume Rate/Area] in Serum or Plasma by Creatinine-based formula (MDRD) >60 [facility] ID Date Data Source [id number] 11/16/2020 07:33:03 AM EDT [facility] Name Value Range Interpretation Code Description Data Lou rce(s) Supporting Document(s) ABO and Rh group [Type] in Blood [facility] Blood group antibody screen [Presence] in Serum or Plasma [facility] Performed at [facility], Raquel brody Geeta, [id number] ID Date Data Source [id number] 11/13/2020 03:31:00 PM EDT [facility] Name Value Range Interpretation Code Description Data Lou rce(s) Supporting Document(s) SARS coronavirus 2 RNA [Presence] in Res piratory specimen by [facility] with probe detection NEGATIVE [facility] This lab was ordered by [facility] a nd reported by [facility]. Procedure Social History Code Duration Value Status Description Data Source(s ) Alcohol intake 11/16/2020 12:00:00 AM EDT Current drinker of al cohol (finding) completed Current drinker of alcohol (finding) [facility] Tobacco use and exposure 11/14/2020 12:00:00 AM EDT Smokeless to bacco non-user completed Smokeless tobacco non-user [facility] Cigarette pack-years 11/14/2020 12:00:00 AM EDT UNK completed [facility] Cigarettes smoked current (pack per day) - Reported 11/15/19 12:00:00 AM EDT UNK completed 0.5 [facility] Smoking 11/14/2020 12:00:00 AM EDT Smokes tobacco daily comple ashley Smokes tobacco daily [facility] Vital Signs ID Date Data Source UNK Name Value Range Interpretation Code Description Data Source(s) Body weight 2480 [oz_av] 2480 [oz_av] SUKI ([facility]) Diastolic blood pressure 78 mm[Hg] 78 mm[Hg] SUKI ([facility]) Body height 65 [in_i] 65 [in_i] SUKI ([facility]) Body mass index (BMI) [Ratio] 25.8 kg/m2 25.8 k g/m2 SUKI ([facility]) Systolic blood pressure 121 mm[Hg] 121 mm[Hg] Venkata ROBBINS ([facility]) ID Date Data Source [id number] 12/14/2020 04:10:11 PM EDT [facility] Name Value Range Interpretation Code Description Data Source(s) WEIGHT RECORDED 151.3 lb 151.3 lb [facility] Body height Measured 66 in 66 in [facility] TRANSFER FROM [facility] ID Date Data Source [id number] 12/01/2020 11:10:43 AM [facility] Name Value Range Interpretation Code Description Data Source(s) TRANSFER FROM [facility] Patient Treatment Plan of Care Planned Activity Planned Date Details Description Data Source (s) Lisinopril 5 MG Oral Tablet 12/12/2020 12:00:00 AM [facility] Thiamine 100 MG Oral Tablet 12/12/2020 12:00:00 AM [facility] Acetaminophen 325 MG Oral Tablet 12/12/2020 12:00:00 AM [facility] [facility] Acetaminophen 325 MG Oral Tablet 12/10/2020 04:46:26 PM [facility] Folic Acid 1 MG Oral Tablet 2020 12:00:00 AM [facility] Vitamin B 12 0.25 MG Oral Tablet 2020 12:00:00 AM [facility] pantoprazole 40 MG Delayed Release Oral Tablet 11/17/2020 12:00:00 AM [facility] Lisinopril [address] [facility] duloxetine 60 MG Delayed Release Oral Capsule [facility] ([facility]) Clindamycin 300 MG Oral Capsule [facility] ([facility])
--- OUTSIDE RECORDS SUMMARY | 2021-04-24 20:37 | CCD ---
Author Author [facility] Organization [facility] Address Unknown Phone Unavailable Care Team Providers Care Family Practice Doctor Name Role Phone MANUELA RANDLE DORCAS RPA-C [...] Unavailable Alexe MD, Jaxon Unavailable JAXON PETERSEN [id number] Unavailable Unavailable GHASEMI, LAMONT MD Unavailable Unavailable [...] is protected by Article 27-F of the [facility] Public Health law. If you continue you may have access to information: Regarding HIV / AIDS; Provided by facilities licensed or operated by the [facility] Office of Mental Health; or Provided by the [facility] Office for People With Developmental Disabilities. If such information is present, then the following [facility] mandated warning applies: This information has been [...] law may result in a fine or care home sentence or both. A general authorization for the release of medical or other information is NOT sufficient authorization for further disc losure. Allergies and Adverse Reactions Type Description Substance Reaction Status Data Source(s ) Propensity to adverse reactions PENICILLINS Penicillin [facility] Propensity to adverse reactions NAPROXEN NAPROXEN [facility] Propensity to adverse reactions IBUPROFEN Ibuprofen [facility] Propensity to adverse reactions DIPHENHYDRAMINE DIPHENHYDRAMINE [facility] Drug allergy AMOXICILLIN-POT CLAVULANATE AMOXICILLIN-POT CLAVULANATE [facility] Allergy to substance Allergy to substance Naproxen [facility] ([facility]) Allergy to substance Allergy to substance Ibuprofen [facility] ([facility]) Allergy to substance Allergy to substance Diphenhydramine Hcl [place] ([facility]) Family History Family Member Name Family Member Gender Family Member Status Date o f Status Description Data Source(s) Unknown Unknown Problem MEDENT ([facility], [facility]) Encounters Encounter Providers Location Date Indications Data Source(s ) Outpatient Admitter: RYAN MORRISONReferrer: RYAN MORRISON 04/07/2021 12:00:00 AM EST 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 03/23/2021 12:00:00 AM [facility] Inpatient Attender: Antonio Lee antonieta: LAMONT GRAY MDAdmitter: LAMONT GRAY MDReferrer: LAMONT GRAY MD A-12/08/2020 12:00: 00 AM EDT - 12/12/2020 01:58:00 PM [facility] Patient discharged. Dorcas Randle, [facility]: [address] [place] [address], [facility] [address], [place] [address], Ph. Attender: DORCAS ISAACS [facility] Medical 11/25/2020 12:00:00 AM EDT [facility] ([facility]) Outpatient Attender: SOOLINDSAY RAMACHANDRAN . [id number] 11/17/2020 03:42:22 PM EDT [facility] Inpatient Attender: RON MILLER MDAttender: Jaxon Petersen MDAttender: JAXON PETERSEN [id number]: Bethanie Walls MDAttender: DONAL HUBBARD MDAttender: ALEX ZENDEJAS MDAdmitter: Bethanie Walls MDReferrer: DONAL HUBBARD MD [id number] 11/13/2020 12:00:00 AM EDT - 11/17/2020 05:29:00 PM EDT [facility] Patient discharged. Immunizations Vaccine Date Status Description Data Source(s) SARS-COV-2 (COVID-19) vaccine, UNSPECIFIED 10/30/2020 12:00:00 A M EDT completed 10/30/2020 [facility] ([facility] er) COVID-19 VACCINE Todd 10/30/2020 12:00:00 AM EDT completed ORSIIS Vaccine Series Complete: YESThis Data wa s Submitted to [facility] Via [employer]. Medications Medication Brand Name Start Date Product Form Dose Route Admi nistrative Instructions Pharmacy Instructions Status Indications Reaction Description Data Source(s) Acetaminophen 325 MG Oral Tablet Acetaminophen 325 MG Oral T ablet 12/12/2020 12:00:00 AM EDT 650 mg Oral active Take 2 tablets by mouth every 8 (eight) hours as needed for up to 10 days [facility] Thiamine 100 MG Oral Tablet Thiamine HCl 100 MG Oral T ablet (B-1) Thiamine HCl 100 MG Oral Tablet (B-1) 12/12/2020 12:00:00 AM EDT 100 mg Oral active Take [facility] MG Oral Tablet Lisinopril 5 MG Oral Table t (PRINIVIL,ZESTRIL) Lisinopril 5 MG Oral Tablet (PRINIVIL,ZESTRIL) 12/12/2020 12:00:00 AM EDT 5 mg Oral active Take 1 tablet by mouth d [facility] pantoprazole 40 MG Delayed Release Oral Tablet pantoprazole (PROTONIX) EC tablet 40 mg pantoprazole (PROTONIX) EC tablet 40 mg 12/11/2020 07:30:00 AM E DT 40 mg Oral active 40 mg, Ora l, Before Breakfast, First dose (after last modification) on Sun12/11/20 at 0730, For 5 doses
Do not crush or chew
[facility] Medication administered onsite Acetaminophen 325 [...] mg from all sources in 24 hours.
[facility] Medication administered onsite Oxycodone Hydrochloride [...] only) require Pain Service consultation and approval.
[facility] Medication administered onsite fentaNYL (SUBLIMAZE) (PF) injection [id number] 12/10/2020 12:18:14 PM EDT completed Code/Trauma Medicati on, Starting on Sun12/10/20 at 1218 [facility] Medication administered onsite 2 ML Midazolam 1 MG/ML Injection midazolam (PF) (VERSE D) injection midazolam (PF) (VERSED) injection 12/10/2020 12:10:25 PM EDT aborted Code/Trauma Medication, Starting on Sun12/10/20 at 1210 [facility] Medication administered onsite fentaNYL (SUBLIMAZE) (PF) injection [id number] 12/10/2020 12:10:02 PM EDT aborted Code/Trauma Medicati on, Starting on Sun12/10/20 at 1210 [facility] Medication administered onsite 2 ML Midazolam 1 MG/ML Injection midazolam (PF) (VERSE D) injection midazolam (PF) (VERSED) injection 12/10/2020 12:09:08 PM EDT aborted Code/Trauma Medication, Starting on Sun12/10/20 at 1209 [facility] Medication administered onsite fentaNYL (SUBLIMAZE) (PF) injection [id number] 12/10/2020 12:08:42 PM EDT aborted Code/Trauma Medicati on, Starting on Sun12/10/20 at 1208 [facility] Medication administered onsite phytonadione (VITAMIN K1) 1 mg/mL oral solution 10 mg 12/09/2020 07:35:00 PM EDT 10 mg Oral completed 10 mg, Oral, Daily Standard, First dose on Sun12/09/20 at 1945, For 3 days [facility] Medication administered onsite NaCl infusion 0.9 % [id number] 12/09/2020 07:00:00 PM EDT Intravenous aborted at 100 mL/hr, Intrav enous, Continuous, Starting on Sun12/09/20 at 1900, For 24 hours [facility] Medication administered onsite Bisacodyl 5 MG Delayed Release Oral Tablet bisacodyl ( DULCOLAX) EC tablet 20 mg bisacodyl (DULCOLAX) EC tablet 20 mg 12/09/2020 05:45:00 PM EDT 20 mg Oral completed 20 mg, Oral, Onc e, On Sun12/09/20 at 1745, For 1 dose
Do not crush or chew
[facility] Medication administered onsite pantoprazole 40 MG Delayed Release Oral Tablet pantoprazole (PROTONIX) EC tablet 40 mg pantoprazole (PROTONIX) EC tablet 40 mg 12/09/2020 05:30:00 PM E DT 40 mg Oral aborted 40 mg, Ora l, Two times daily before breakfast and dinner, First dose on Sun12/09/20 at 1730, For 30 days
Do not crush or chew
[facility] Medication administered onsite 2 ML Midazolam 1 MG/ML Injection midazolam (PF) (VERSE D) injection midazolam (PF) (VERSED) injection 12/09/2020 05:04:35 PM EDT completed Code/Trauma Medication, Starting on Carol 12/09/[address] [place] [address] Medication administered onsite fentaNYL (SUBLIMAZE) (PF) injection [id number] 12/09/2020 05:04:11 PM EDT completed Code/Trauma Medicati on, Starting on Carol 12/09/20 at [facility] Medication administered onsite 2 ML Midazolam 1 MG/ML Injection midazolam (PF) (VERSE D) injection midazolam (PF) (VERSED) injection 12/09/2020 05:02:04 PM EDT completed Code/Trauma Medication, Starting on Carol 12/09/20 at [facility] Medication administered onsite fentaNYL (SUBLIMAZE) (PF) injection [id number] 12/09/2020 05:01:47 PM EDT completed Code/Trauma Medicati on, Starting on Carol 12/09/[address] [place] [address] Medication administered onsite NaCl infusion 0.9 % [id number] 12/09/2020 03:00:00 PM EDT Intravenous aborted at 100 mL/hr, Intrav enous, Continuous, Starting on Carol 12/09/20 at 1500, For 24 hours [facility] Medication administered onsite Oxycodone Hydrochloride [...] only) require Pain Service consultation and approval.
[facility] Medication administered onsite Escitalopram 10 MG Oral Tablet escitalopram (LEXAPRO) tablet 20 mg escitalopram (LEXAPRO) tablet 20 mg 12/09/2020 09:00:00 AM EDT 20 mg Oral active 20 mg, Oral, Daily Standard, First dose on Carol 12/09/20 at 0900, For 30 days [facility] Medication administered onsite multivitamin tablet 1 tablet [id number] 12/09/2020 09:00:00 AM EDT 1 {tbl} Oral active 1 tablet, Oral , Daily Standard, First dose on Sun12/09/20 at 0900, For 30 days [facility] Medication administered onsite Ceftriaxone 1000 MG Injection cefTRIAXone (ROCEPHIN) i nfusion 1 g (premix) cefTRIAXone (ROCEPHIN) infusion 1 g (premix) 12/09/2020 09:00:00 AM EDT 1 g Intravenous aborted 1 g, Intraven ous, at 100 mL/hr, Daily Standard, First dose on Sun12/09/20 at 0900, For 4 doses
Discouraged Uses: Empiric treatment of post-surgical meningitis (ceftazidime preferred)
[facility] Medication administered onsite Oxycodone Hydrochloride [...] only) require Pain Service consultation and approval.
[facility] Medication administered onsite NaCl infusion 0.9 % 6236-5316-98 12/09/2020 07:45:00 AM EDT Intravenous aborted at 200 mL/hr, Intrav enous, Continuous, Starting on Sun12/09/20 at 0745, For 12 hours [facility] Medication administered onsite pantoprazole 4 MG/ML Injectable Solution pantoprazole (PROTONIX) injection 80 mg pantoprazole (PROTONIX) injection 80 mg 12/08/2020 11:45:00 PM EDT 80 mg Intravenous completed 80 mg, Intrav enous, Once, On Sun12/08/20 at 2345, For 1 dose [facility] Medication administered onsite pantoprazole (PROTONIX) 0.4 mg/mL in sodium chloride 0.9 % 2 50 mL infusion 12/08/2020 11:45:00 PM EDT 8 mg/h Intravenous aborted 8 mg/hr (20 mL/hr), Intravenous, at 20 mL/hr, Continuous, Starting on Sun12/08/20 at 2345, For 30 days
Indication: Active GI bleed [facility] Medication administered onsite 1 ML Octreotide 0.05 MG/ML Prefilled Syr moreno octreotide (SANDOSTATIN) injection 50 mcg octreotide (SANDOSTATIN) injection 50 mcg 12/08/2020 11:45:00 PM EDT 50 ug Intravenous completed 50 mcg, Intravenous, Once, On Sun12/08/20 at 2345, For 1 dose [facility] Medication administered onsite octreotide (SANDOSTATIN) 5 mcg/mL in sodium chloride 0.9 % 2 50 mL infusion 12/08/2020 11:45:00 PM EDT 50 ug/h Intravenous aborted 50 mcg/hr (10 mL/hr), Intravenous, at 10 mL/hr, Continuous, Starting on Sun12/08/20 at 2345, For 30 days [facility] Medication administered onsite thiamine (B-1) 500 mg in sodium chloride 0.9 % 50 mL IVPB 12/08/2020 11:45:00 PM EDT 500 mg Intravenous active 500 mg, Intravenous, Administer over 30 Minutes, Daily Standard, First dose on Sun12/08/20 at 2345, For 30 days [facility] Medication administered onsite folic acid 1 mg in sodium chloride 0.9 % 50 mL IVPB 12/08/2020 11:45:00 PM EDT 1 mg Intravenous active 1 mg , Intravenous, Administer over 30 Minutes, Daily Standard, First dose on Sun12/08/20 at 2345, For 30 days [facility] Medication administered onsite NaCl infusion 0.9 % [id number] 12/08/2020 11:30:00 PM EDT Intravenous aborted at 200 mL/hr, Intrav enous, Continuous, Starting on Sun12/08/20 at 2330, For 12 hours [facility] Medication administered onsite 50 ML [...] 16 mEq (2 g) q1h x 3
[facility] Medication administered onsite Folic Acid 1 MG Oral Tablet Folic Acid 1 MG Oral Table t (FOLVITE) Folic Acid 1 MG Oral Tablet (FOLVITE) 2020 12:00:00 AM EDT 1 mg Oral active Take 1 tablet by mouth daily [facility] Vitamin B 12 0.25 MG Oral Tablet Cyanocobalamin 250 MC G Oral Tablet Cyanocobalamin 250 MCG Oral Tablet 2020 12:00:00 AM EDT 250 ug Oral active Take 1 tablet by mouth daily [facility] pantoprazole 40 MG Delayed Release Oral Tablet Pantoprazole Sodium 40 MG Oral Tablet Delayed Release (Protonix) Pantoprazole Sodium 40 MG Oral Tablet De layed Release (Protonix) 11/17/2020 12:00:00 AM EDT 40 mg Oral active Take 1 tablet by mouth daily [facility] Clindamycin 300 MG Oral Capsule clindamy bharti HCl 300 mg capsule TAKE ONE CAPSULE BY MOUTH EVERY SIX HOURS UNTIL GONE clindamycin HCl 300 mg capsule TAKE ONE CAPSULE BY MOUTH EVERY SIX HOURS UNTIL GONE completed clindamycin 300 MG Oral Capsule [place] ([facility] er) duloxetine 60 MG Delayed Release Oral Ca psule duloxetine 60 mg capsule,delayed release TAKE ONE CAPSULE BY MOUTH ONCE DAILY duloxetine 60 mg capsule,delayed release TAKE ONE CAPSULE BY MOUTH ONCE DAILY completed duloxetine 60 MG Delayed Release Oral Capsule [place] ([facility]) Lisinopril 30 MG Oral Tablet Lisinopril 30 MG Oral Tab let (ZESTRIL) Lisinopril 30 MG Oral Tablet (ZESTRIL) 30 mg Oral aborted Take 30 mg by mouth daily [facility] Insurance Providers Payer name Policy type / Coverage type Policy ID Covered alliance party ID Covered alliance party's relationship to see Policy See Plan Information Medicaid S [id number] S [id number] Medicaid S [id number] S [id number] [employer] [id number] SP [id number] Managed Care - Community Plan [facility] [id number] S [id number] Medicaid S [id number] S [id number] UNHC COMMUNITY PLAN MCDHMO [id number] SP [id number] Managed Care - [facility] Community Plan P [id number] S [id number] [facility] [id number] SP [id number] Managed Care - Community Plan [facility] P [id number] S [id number] Managed Care - [facility] Community Plan P [id number] S [id number] [facility] I [id number] Self [id number] UH I [id number] Self [id number] UH I [id number] Self [id number] MEDICAID [id number] SP [id number] MEDICAID M [id number] S [id number] SELF PAY ONLY [id number] SP [id number] SELF PAY ONLY [id number] SP [id number] UN COMMUNITY PLAN MCDO [id number] SP [id number] Managed Care BCBS S [id number] S [id number] SELF PAY UNAVAILABLE SP [facility] [id number] SP [id number] HMO BLUE [id number] SP [id number] [facility] O UNAVAILABLE S UNAVAILABLE [facility](MCAID) O [id number] S [id number] [employer] MCDO [id number] SP [id number] ANSI-Medicaid [id number] ANSI-Medicaid [id number] ANSI-Medicaid [id number] ANSI-Medicaid [id number] [facility] Health Maintenance Organization ([facility] [id number] Self [id number] Self Pay P None S None Managed Care Nadir P [id number] S [id number] [facility] Maintenance [facility] ([facility]) [id number] Self [id number] [facility] [id number] Problems, Conditions, and Diagnoses Code Display Name Description Problem Type Effective Dates Data Source(s) R59.0 Localized enlarged lymph nodes Localized enlarged lymp h nodes Diagnosis 04/07/2021 10:17:00 AM [facility] D50.0 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) Diagnosis 04/07/2021 10:17:00 AM [facility] [id number] Fitting procedure Fitting Procedure Problem 03/04 06:13:25 PM EDT [facility]) Surgeries/Procedures Procedure Description Date Indications Data Source(s) HEMATOPATHOLOGY <td>HEMATOPATHOLOGY</td><td> Routine</td><td>04/07/2021 12:00 AM EST</td><td></td><td> </td> 04/07/2021 12:00:00 AM [facility] BLOOD COUNT COMPLETE AUTOMATED <td>CBC</td><td>Timed</ td><td>12/12/2020 5:28 AM EDT</td><td></td><td> </td> 12/12/2020 05:28:00 AM [facility] PHOSPHORUS INORGANIC <td>PHOSPHORUS LEVEL</td><td >Routine</td><td>12/12/2020 5:28 AM EDT</td><td></td><td> </td> 12/12/2020 05:28:00 AM [facility] MAGNESIUM <td>MAGNESIUM LEVEL</td><td> Routine</td><td>12/12/2020 5:28 AM EDT</td><td></td><td> </td> 12/12/2020 05:28:00 AM [facility] BASIC METABOLIC PANEL CALCIUM TOTAL <td>BASIC METABOLI C PANEL</td><td>Routine</td><td>12/12/2020 5:28 AM EDT</td><td></td><td> </td> 12/12/2020 05:28:00 AM [facility] BLOOD COUNT COMPLETE AUTOMATED <td>CBC</td><td>Timed</ td><td>12/11/2020 3:52 PM EDT</td><td></td><td> </td> 12/11/2020 03:52:00 PM [facility] BLOOD COUNT COMPLETE AUTOMATED <td>CBC</td><td>Timed</ td><td>12/11/2020 6:09 AM EDT</td><td></td><td> </td> 12/11/2020 06:09:00 AM [facility] PHOSPHORUS INORGANIC <td>PHOSPHORUS LEVEL</td><td >Routine</td><td>12/11/2020 6:09 AM EDT</td><td></td><td> </td> 12/11/2020 06:09:00 AM [facility] MAGNESIUM <td>MAGNESIUM LEVEL</td><td> Routine</td><td>12/11/2020 6:09 AM EDT</td><td></td><td> </td> 12/11/2020 06:09:00 AM [facility] BASIC METABOLIC PANEL CALCIUM TOTAL <td>BASIC METABOLI C PANEL</td><td>Routine</td><td>12/11/2020 6:09 AM EDT</td><td></td><td> </td> 12/11/2020 06:09:00 AM [facility] BLOOD COUNT COMPLETE AUTOMATED <td>CBC</td><td>Timed</ td><td>12/10/2020 5:47 PM EDT</td><td></td><td> </td> 12/10/2020 05:47:00 PM [facility] BASIC METABOLIC PANEL CALCIUM TOTAL <td>BASIC METABOLI C PANEL</td><td>Routine</td><td>12/10/2020 1:07 PM EDT</td><td></td><td> </td> 12/10/2020 01:07:00 PM [facility] BLOOD COUNT COMPLETE AUTOMATED <td>CBC</td><td>Timed</ td><td>12/10/2020 10:13 AM EDT</td><td></td><td> </td> 12/10/2020 10:13:00 AM [facility] CALCIUM IONIZED <td>CALCIUM, IONIZED</td><td >Routine</td><td>12/10/2020 10:13 AM EDT</td><td></td><td> </td> 12/10/2020 10:13:00 AM [facility] PHOSPHORUS INORGANIC <td>PHOSPHORUS LEVEL</td><td >Routine</td><td>12/10/2020 5:09 AM EDT</td><td></td><td> </td> 12/10/2020 05:09:00 AM [facility] MAGNESIUM <td>MAGNESIUM LEVEL</td><td> Routine</td><td>12/10/2020 5:09 AM EDT</td><td></td><td> </td> 12/10/2020 05:09:00 AM [facility] COMPREHENSIVE METABOLIC PANEL <td>COMPREHENSIVE METABO LIC PANEL</td><td>Routine</td><td>12/10/2020 5:09 AM EDT</td><td></td><td> </td> 12/10/2020 05:09:00 AM [facility] BLOOD COUNT COMPLETE AUTOMATED <td>CBC</td><td>Timed</ td><td>12/10/2020 12:59 AM EDT</td><td></td><td> </td> 12/10/2020 12:59:00 AM [facility] Screening colonoscopy (procedure) <td>COLONOSCOPY</td> <td></td><td>12/10/2020 12:00 AM EDT</td><td></td><td></td> 12/10/2020 12:00:00 AM [facility] UPPER GI ENDOSCOPY; DX, W/WO SPECIMEN COLLECTION, BRUS RADHA/WASHING (SEP PROC) <td>UPPER GI ENDOSCOPY; DX, W/WO SPECIMEN COLLECTION, BRUSHING/WASHING (SEP PROC)</td><td></td><td>12/09/2020 5:00 PM EDT</td><td> Upper GI bleed</td><td></td> 12/09/2020 05:00:00 PM EDT - 12/09/2020 05:15:00 PM [facility] BLOOD COUNT COMPLETE AUTOMATED <td>CBC</td><td>Timed</ td><td>12/09/2020 4:06 PM EDT</td><td></td><td> </td> 12/09/2020 04:06:00 PM [facility] GLUCOSE QUANTITATIVE BLOOD XCPT REAGENT STRIP <td>POCT GLUCOSE, DOCKED</td><td>Routine</td><td>12/09/2020 12:35 PM EDT</td><td></td><td> </td> 12/09/2020 12:35:00 PM [facility] TRANSFUSE RBC (ONCE) <td>TRANSFUSE RBC (ONCE)</td ><td>STAT</td><td>12/09/2020 11:00 AM EDT</td><td></td><td></td> 12/09/2020 11:00:50 AM [facility] CALCIUM IONIZED <td>CALCIUM, IONIZED</td><td >Routine</td><td>12/09/2020 10:15 AM EDT</td><td></td><td> </td> 12/09/2020 10:15:00 AM [facility] ULTRASOUND ABDOMINAL REAL TIME W/IMAGE LIMITED <td>US ABDOMEN LIMITED [id number]</td><td>Routine</td><td>12/09/2020 10:10 AM EDT</td><td></td><td> </td> 12/09/2020 10:10:00 AM [facility] CULTURE BACTERIAL BLOOD AEROBIC W/ID ISOLATES <td>BLOO D CULTURE</td><td>Routine</td><td>12/09/2020 6:04 AM EDT</td><td></td><td></td> 12/09/2020 06:04:00 AM [facility] BLOOD COUNT COMPLETE AUTOMATED <td>CBC</td><td>Timed</ td><td>12/09/2020 6:04 AM EDT</td><td></td><td> </td> 12/09/2020 06:04:00 AM [facility] PHOSPHORUS INORGANIC <td>PHOSPHORUS LEVEL</td><td >Routine</td><td>12/09/2020 6:04 AM EDT</td><td></td><td> </td> 12/09/2020 06:04:00 AM [facility] MAGNESIUM <td>MAGNESIUM LEVEL</td><td> Routine</td><td>12/09/2020 6:04 AM EDT</td><td></td><td> </td> 12/09/2020 06:04:00 AM [facility] COMPREHENSIVE METABOLIC PANEL <td>COMPREHENSIVE METABO LIC PANEL</td><td>Routine</td><td>12/09/2020 6:04 AM EDT</td><td></td><td> </td> 12/09/2020 06:04:00 AM [facility] TRANSFUSE RBC (ONCE) <td>TRANSFUSE RBC (ONCE)</td ><td>STAT</td><td>12/09/2020 5:45 AM EDT</td><td></td><td></td> 12/09/2020 05:45:38 AM [facility] URNLS DIP STICK/TABLET REAGENT AUTO MICROSCOPY <td>URI NALYSIS WITH REFLEX URINE CULTURE</td><td>STAT</td><td>12/09/2020 2:02 AM EDT</td><td></td><td> </td> 12/09/2020 02:02:00 AM [facility] CULTURE BACTERIAL BLOOD AEROBIC W/ID ISOLATES <td>BLOO D CULTURE</td><td>Routine</td><td>12/09/2020 12:07 AM EDT</td><td></td><td></td> 12/09/2020 12:07:00 AM [facility] UPPER GI ENDOSCOPY <td>UPPER GI ENDOSCOPY</td>< td></td><td>12/09/2020 12:00 AM EDT</td><td></td><td></td> 12/09/2020 12:00:00 AM EDT [facility] COVID-19 PCR <td>COVID-19 PCR</td><td>Rou jason</td><td>12/08/2020 11:59 PM EDT</td><td></td><td> </td> 12/08/2020 11:59:00 PM [facility] THROMBOPLASTIN TIME PARTIAL PLASMA/WHOLE BLOOD <td>PAR TIAL THROMBOPLASTIN TIME (PTT)</td><td>STAT</td><td>12/08/2020 11:59 PM EDT</td><td></td><td> </td> 12/08/2020 11:59:00 PM [facility] PROTHROMBIN TIME <td>PROTIME INR</td><td>STAT </td><td>12/08/2020 11:59 PM EDT</td><td></td><td> </td> 12/08/2020 11:59:00 PM [facility] BLOOD COUNT COMPLETE AUTOMATED <td>CBC</td><td>Timed</ td><td>12/08/2020 11:59 PM EDT</td><td></td><td> </td> 12/08/2020 11:59:00 PM [facility] BLOOD TYPING ABO <td>TYPE AND SCREEN</td><td> STAT</td><td>12/08/2020 11:59 PM EDT</td><td></td><td> </td> 12/08/2020 11:59:00 PM [facility] LIPASE <td>LIPASE LEVEL</td><td>STA T</td><td>12/08/2020 11:59 PM EDT</td><td></td><td> </td> 12/08/2020 11:59:00 PM [facility] COMPREHENSIVE METABOLIC PANEL <td>COMPREHENSIVE METABO LIC PANEL</td><td>Routine</td><td>12/08/2020 11:59 PM EDT</td><td></td><td> </td> 12/08/2020 11:59:00 PM [facility] Results ID Date Data Source [id number] 04/08/2021 03:50:00 PM [facility] Hematopathology ReportName: CASIE MORINMRN: [id number] Number: [id number] Date: 04/07/2021 00:00Received Date: 04/08/2021 12:47Physician(s): RYAN MORRISON MD ADJAPONG, OPOKU, MDSpecimen(s) ReceivedA: Fine Needle Aspiration, Flow Cytometry; RECEIVED FNA OF RIGHT NECKLYMPH NODE IN [place] [facility]ITALClinical HistoryEnlarged lymph nodesTEST REQUESTED/PERFORMED: Flow Cytometry Analysis DiagnosisFlow cytometry of right neck lymph node, FNA: No evidence of non-Hodgkinlymphoma. As the sample shows significant cell degeneration, the flowresults might not be underwriting account representative of the sampled tissue.Yoav alcantar M.D.;Resident PathologistElectronically Signed By Lay Gaitan M.D. Attending Pathologist 04/08/2021 15:50:33The attending pathologist named above attests that he/she has personallyreviewed the relevant preparation(s) for the specimen(s) and rendered thefinal diagnosis. ProceduresFlow Cytometry Date Ordered:04/08/2021 Status: Signed Out04/08/2021 InterpretationA cytospin shows mostly degenerating cells.Lymphoma [place] Panel The following markers were assayed: CD45 (gate), CD2, CD3, CD4, CD5, CD7,CD8, CD10, CD19, CD20, [place], and Lambda.Events :[id number] NOTE: Routinely a minimum of 50,000 events are collectedin each panel tube. Due to sample cellularity and/or processing thisnumber was not achievable for this sample.No viability performed due to low cellularity.Flow Cytometry Differential (CD45/SSC)Lymphocyte [place]: 2%CD45 dim [place]: 0%Monocyte [place]: 0%Granulocyte [place]: 8%Nucleated/Erythroid [place]: 13%The lymphocyte gate showsB-Cells (CD19): 8%[place]/Lambda Ratio: 2.7T-Cells (CD3): 86%CD4/CD8 Ratio: 6.9Results: (expressed as % of lymphocyte gate)B-cell Markers: CD19 = 8, CD19/CD5 = 1Gated on CD19+ cells: CD19/[place] = 3, CD19/Lambda = 1, CD19/CD10 = [...] were developed and theirperformance characteristics determined by [facility] Pathology department.They have not been cleared or approved by the [place] Food and DrugAdministration. The FDA has determined that such clearance or approval isnot necessary. Name Value Range Interpretation Code Description Data Lou rce(s) Supporting Document(s) ID Date Data Source [id number] 04/04/2021 05:06:00 PM EST [facility] Name Value Range Interpretation Code Description [facility]) SARS coronavirus 2 RNA [Presence] in Res piratory specimen by TOYA with probe detection NEGATIVE [facility] This lab was ordered by [facility] a nd reported by [facility]. ID Date Data Source [id number] 12/12/2020 05:24:26 PM EDT [facility] Name Value Range Interpretation Code Description Data [facility] Supporting Document(s) Discharge Summary [facility] [id number]/WVAluKDRzk2RtQMsfRTx6ABldZHRtH5HtAOW4cB0pQSL6JHsZHxHsJoInGlB0 lbm [file] Maria Guadalupe/[id number]/iG [file] [id number]RDZo= ID Date Data Source [id number] 12/12/2020 06:08:11 AM EDT [facility] Name Value Range Interpretation Code Description Data Lou rce(s) Supporting Document(s) Leukocytes [#/volume] in Blood by Automated count 5.5 10*3/uL 4-10 [facility] Erythrocytes [#/volume] in Blood by Automated count 2.87 10*6/uL 4.6- 6.1 L [facility] Hemoglobin [Mass/volume] in Blood 7.8 g/dL 13.5-18 L [facility] Hematocrit [Volume Fraction] of Blood by Automated count 24.3 % 4 1-53 L [facility] Erythrocyte mean corpuscular volume [Entitic volume] by Auto mated count 84.8 fL 80-96 [facility] Erythrocyte mean corpuscular hemoglobin [Entitic mass] by Automated count 27.3 pg 27-33 [facility] Erythrocyte mean corpuscular hemoglobin concentration [Mass/volume] by Automated count 32.2 g/dL 32.0-[facility] width [Ratio] by Automated count 17.3 % 11.5-14.5 H [facility] Platelets [#/volume] in Blood by Automated count 112 10*3/uL 150-400 L [facility] ID Date Data Source [id number] 12/12/2020 06:27:20 AM [facility] Name Value Range Interpretation Code Description Data Lou rce(s) Supporting Document(s) Bicarbonate [Moles/volume] in Serum 23 mmol/L 22-29 [facility] Chloride [Moles/volume] in Serum or Plasma 102 mmol/L 98-107 [facility] Creatinine [Mass/volume] in Serum or Plasma 0.55 mg/dL 0.70-1.20 L [facility] Glucose [Mass/volume] in Serum or Plasma 102 mg/dL 70-140 [facility] Potassium [Moles/volume] in Serum or Plasma 3.5 mmol/L 3.4-5.1 [facility] Sodium [Moles/volume] in Serum or Plasma 133 mmol/L 136-145 L [facility] Urea nitrogen [Mass/volume] in Serum or Plasma 5 mg/dL 6-20 [facility] [place] Anion gap 3 in Serum or Plasma 9 mmol/L 8-15 [facility] Osmolality of Serum or Plasma by calculation 274 mosm/kg 275-300 L [facility] Creatinine/Urea nitrogen [Mass Ratio] in Serum or Plasma 9 [facility] Calcium [Mass/volume] in Serum or Plasma 8.0 mg/dL 8.6-10.0 [facility] [place] Glomerular filtration rate/1.73 sq M pre dicted among non-blacks [Volume Rate/Area] in Serum or Plasma by Creatinine-based formula (MDRD) >6 0 [facility] Glomerular filtration rate/1.73 sq M pre dicted among blacks [Volume Rate/Area] in Serum or Plasma by Creatinine-based formula (MDRD) >60 [facility] ID Date Data Source [id number] 12/12/2020 06:27:20 AM [facility] Value Range Interpretation Code Description Data Lou rce(s) Supporting Document(s) Phosphate [Mass/volume] in Serum or Plasma 3.1 mg/dL 2.5-4.5 [facility] ID Date Data Source [id number] 12/12/2020 06:27:20 AM [facility] Value Range Interpretation Code Description Data Lou rce(s) Supporting Document(s) Magnesium [Mass/volume] in Serum or Plasma 2.0 mg/dL 1.6-2.6 [facility] ID Date Data Source [id number] 12/11/2020 04:51:04 PM [facility] Name Value Range Interpretation Code Description Data Lou rce(s) Supporting Document(s) Leukocytes [#/volume] in Blood by Automated count 5.3 10*3/uL 4-10 [facility] Erythrocytes [#/volume] in Blood by Automated count 2.88 10*6/uL 4.6- 6.1 L [facility] Hemoglobin [Mass/volume] in Blood 8.2 g/dL 13.5-18 L [facility] Hematocrit [Volume Fraction] of Blood by Automated count 24.5 % 4 1-53 L [facility] Erythrocyte mean corpuscular volume [Entitic volume] by Auto mated count 84.9 fL 80-96 [facility] Erythrocyte mean corpuscular hemoglobin [Entitic mass] by Automated count 28.5 pg 27-33 [facility] Erythrocyte mean corpuscular hemoglobin concentration [Mass/volume] by Automated count 33.5 g/dL 32.0-36.[facility] distribution width [Ratio] by Automated count 16.9 % 11.5-14.5 H [facility] Platelets [#/volume] in Blood by Automated count 105 10*3/uL 150-400 L [facility] ID Date Data Source [id number] 12/11/2020 03:28:44 PM [facility] Name Value Range Interpretation Code Description Data Lou rce(s) Supporting Document(s) History and Physical [facility] [id number]/KKNnqAHFhb2OnVTtaRMk9MVbaKXKrL1BlTIP6xP5xMSN8SKdBSaEoXxRyHoT5 [facility] [file] [id number]SpeBVOIZf1X ID Date Data Source [id number] 12/11/2020 06:57:52 AM [facility] Name Value Range Interpretation Code Description Data Lou rce(s) Supporting Document(s) Leukocytes [#/volume] in Blood by Automated count 4.6 10*3/uL 4-10 [facility] Erythrocytes [#/volume] in Blood by Automated count 2.74 10*6/uL 4.6- 6.1 L [facility] Hemoglobin [Mass/volume] in Blood 7.7 g/dL 13.5-18 L [facility] Hematocrit [Volume Fraction] of Blood by Automated count 23.0 % 4 1-53 L [facility] Erythrocyte mean corpuscular volume [Entitic volume] by Auto mated count 84.2 fL 80-96 [facility] Erythrocyte mean corpuscular hemoglobin [Entitic mass] by Automated count 28.1 pg 27-33 [facility] Erythrocyte mean corpuscular hemoglobin concentration [Mass/volume] by Automated count 33.3 g/dL 32.0-36.[facility] distribution width [Ratio] by Automated count 17.0 % 11.5-14.5 H [facility] Platelets [#/volume] in Blood by Automated count 105 10*3/uL 150-400 L [facility] ID Date Data Source [id number] 12/11/2020 08:31:44 AM [facility] Value Range Interpretation Code Description Data Lou rce(s) Supporting Document(s) Magnesium [Mass/volume] in Serum or Plasma 2.1 mg/dL 1.6-2.6 [facility] ID Date Data Source [id number] 12/11/2020 08:31:44 AM [facility] Value Range Interpretation Code Description Data Lou rce(s) Supporting Document(s) Bicarbonate [Moles/volume] in Serum 22 mmol/L 22-29 [facility] Chloride [Moles/volume] in Serum or Plasma 101 mmol/L 98-107 [facility] Creatinine [Mass/volume] in Serum or Plasma 0.52 mg/dL 0.70-1.20 L [facility] Glucose [Mass/volume] in Serum or Plasma 91 mg/dL 70-140 [facility] Potassium [Moles/volume] in Serum or Plasma 3.5 mmol/L 3.4-5.1 [facility] Sodium [Moles/volume] in Serum or Plasma 133 mmol/L 136-145 L [facility] Urea nitrogen [Mass/volume] in Serum or Plasma 6 mg/dL 6-20 [facility] Anion gap 3 in Serum or Plasma 10 mmol/L 8-15 [facility] Osmolality of Serum or Plasma by calculation 273 mosm/kg 275-300 L [facility] Creatinine/Urea nitrogen [Mass Ratio] in Serum or Plasma 12 [facility] Calcium [Mass/volume] in Serum or Plasma 7.6 mg/dL 8.6-10.0 L [facility] Glomerular filtration rate/1.73 sq M pre dicted among non-blacks [Volume Rate/Area] in Serum or Plasma by Creatinine-based formula (MDRD) >6 0 [facility] Glomerular filtration rate/1.73 sq M pre dicted among blacks [Volume Rate/Area] in Serum or Plasma by Creatinine-based formula (MDRD) >60 [facility] ID Date Data Source [id number] 12/11/2020 08:31:44 AM [facility] Name Value Range Interpretation Code Description Data Lou rce(s) Supporting Document(s) Phosphate [Mass/volume] in Serum or Plasma 3.0 mg/dL 2.5-4.5 [facility] ID Date Data Source [id number] 12/10/2020 05:53:09 PM [facility] Name Value Range Interpretation Code Description Data Lou rce(s) Supporting Document(s) History and Physical [facility] [id number]/CAScaAIZvk4WoEDjcNPv9HBsgIJKpQ0UrAOJ7fM3aJKE8CDzSOgDfRaJiBmSj [facility] [file] AgICAgICAgICAgICAgICAgICAgICAgICAgICAgICAg CTMgUXKtXYBgWPDwRAJhCHUkYVKjJTRoXEUwXGEyAQHsJPGsZNSfBXJcCHYnPMQtRN1NGCQfMSOuWELl ICAgICAgICAgICAgICAgICAgICAgICAgICAgICAgICAgICAgICAgICAgICAgICAgICAgICAgICAgICAg ICAgICAgICAgICAgICAgICAgICAgICAgICAgICAgIA 0KICAgICAgICAgICAgICAgICAgICAgICAgICAgICAgICAgICAgICAgICAgICAgICAgICAgICAgICAgIC PcSSXlCRUbETAyPCVoUJBbDBMlWKDvDCTxDFSsMTFeKFUsXVBiHGMjBN1EYWSbSXOyMDHuLPJfSLOzVZ AgICAgICAgICAgICAgICAgICAgICAgICAgICAgICAg VIVbHTOrIHSoOJVfTUFpPVOuCGFhVQLfOAGmBRXvAOOzGQKqWRDrLVGgJJQtKPQxQIOiYY3CNUAlQVLr ICAgICAgICAgICAgICAgICAgICAgICAgICAgICAgICAgICAgICAgICAgICAgICAgICAgICAgICAgICAg ICAgICAgICAgICAgICAgICAgICAgICAgICAgICAgIC SwJO7TJONrVSHtWSLfXQUtIRJhKBIhVRVzPFWsTFWtXQGbVHGlEEZqZWKqZKLkEGPpNCJjKYRkRCXjBU IzZXVvEZJaMWIcNLZbLLKsJOMaGRDaCITuNWSeJMFbIMMkJEJhRPLsOXQiRA2WKUNfAQFsHJOfJWBiMW AgICAgICAgICAgICAgICAgICAgICAgICAgICAgICAg NUDeDGRkMKWvKGEfYJJyHTXmCLSnMINlZRVpAJMuNRZbCXUmMOUfGNLcHCEiDTEpBCRnSRFiEO5ADOKq ICAgICAgICAgICAgICAgICAgICAgICAgICAgICAgICAgICAgICAgICAgICAgICAgICAgICAgICAgICAg ICAgICAgICAgICAgICAgICAgICAgICAgICAgICAgIC VcTXFxLY6HYKGaHVDhQOQyAINtYJLlRHJvIJSlYLSaNUFdISYpXKGpLHNbUVGgVKJfIWZxOAJlYVDkYQ HeBNGvRCXaBDJyDQFdPPBrFXSvOMXkBZRqGPDlNYWjHKRyWONiAMAmWNNmWISdJC7XLZLkRRFxXSWeIU AgICAgICAgICAgICAgICAgICAgICAgICAgICAgICAg NFHeRSFjXLTyTKGtECSjGGAaVNBiAFJyNHUnRLNtDGFhOAIzJYSuUAZkCNSeACMbNWMtJDQhLVOlUW7K BN27cDTea1D3HRVoKP9cdqg/De3TBSjzmaFcjTMgQP3GWpKvWO8ssq6TDlFqOE7ofg0VEXuNFgHuF7F9 gVQmBBTiAHLONaYnA62fQVeuWe46QQgpJAPzAjQjRS v1Hj6FCpEkF0qhVFXwRqW2OWNlVmD6YDWuHcQtNDldBM9Gu7YgeTPiVDc+Go4YEL5dy8MwOWkiTAThZP 4whe0FFDeYZxEcH7PwmiF4IUJ7EBMgHt1IPATzULAbpIXiWGIwOAZCBvUjP4OckF40JZSMOs5+DQplbm TzUepASuV4KLBpg3PcTDh7SW0NCMCmXCo5fCDmPOIS RZX0DXQjw3fjhENEfY1jgqrmGRQBCySfrQI9OtAuReViObMqVSd6ZGDqUP2iARueHQ3TMUF6UItrHXAf DBKiY8sNFwYeAWSmGkTwhOxxOC8UXqIwS3DufxEytYTzBJEmHHLZBc8+ZMkyoeWgUiaZOwI7VJBhm4Ll ZSd5AR1FWBAtNGpbTU4QYODcqN7yUXztUA1MRyZcOb RvSAPHWpIvJ16zlOLzZZo2V6PcQcQrJKUeWpeeSOUcKVlcGbQvBPOlSeSuHAojKB7+ID4+QVcuGF4HSZ ppgoEwRURjHy1AUYPkUJWqEU1yUQUcNNWhB3Q4oGbgWIDSEcOxR8nxjzdwAZ2eVLQwP349eOfvqaXjAG N5ICCqAt2LPGVxQWE5IJQukNNpDpYzTGFUSTmqXP9T zUUzURX5qW4qGSljXSCxSCHnO7iOYcFmwVxhSR43fNqacvVspUQxFDi+Zr1CCE7wq5SpPFu6lmVfPRky MVI3YZyrPQRhJESvSVFnAUH6YIW4IQVEBcYhLTPaXFXhXMecZQYaRHTvdz5VLTMvGEScHiYjZXOwTGUp GPLuNTrsRICuKMGxUwJ6ZESoMJRyHX4PIsTjRFBnPH IqWHplVVAfEEUwje0STJQaYCCcAjGnVIKqIPHgIKRlSVufYUCqUFLlMGE3BYVsEZYrVJ0IGzFfOGXdDN L6IPVlZOGvYBUnjn0UPHRfVBYkWFL2SzArWQOlUTPvUMsvJQAgITL5EqQ0UVUaBUZuQC2PLwIjJXWiUT U1DSHrZUBtZAPydz7EGUHvWRMrWnx9YqNeMEAfKPMz PXkyEKWoVXK2XLIjGAKmZOWuXN1LBrUuLRNwZRfmQAEjJGYaCPIyvo8WCHFyVYBnIEK4BdDgTKJeLGUc EWihLWBfRGL5YyNwNXIuWNVgAM7EHjIrFIHtANu6KBdzSGZeAINged3DTPFgBLVsITR4WuKzXOSvTLMo FOouWPQuCYPsDCB3UVEoKBXfWC3VTxVhCZIiZdDdZX LpAAIjJBHuoo7TMIYiLHZmUDF3IPGkYMCcDVFaMSyvWPYoHJSuFPGtHDEjZCWoIG7EQmWvGGFpSnZ0Dx vzTAAfKHMkjh4SLPSuUEHxOzB5LdUjRPOcZYQeOMuyGEXsOOYbYIPyMWUoYQKtPQ7ZQuXsMABmLtZ5OC TqXZVgJBDspw0JZCMzWMEaQJU2SGHeHTGyPKExUGq5 ybFcrEMlEBr4TI4KU6AtzqVlBndHMs5Oy880LHZ0BVJjDd4JS1ufNc4eHAPqLOAPCf3FDEe1EZn8SXE3 CHF2OMKyQCosFcXjEnCdDconSUOsWsU6VMR+SThcUYihVDVjGlUmPDK2YOX7BUJ5HXHqKjVcT7S0ThB4 OA6gSFFZHq1+SQnbpIQhbBifANQNSxQ3GeohKWhjZVEGAf7G ID Date Data Source [id number] 12/10/2020 05:53:04 PM EDT [facility] Name Value Range Interpretation Code Description Data Lou rce(s) Supporting Document(s) History and Physical [facility] TFFAYu3sKyZYPbMu04/ALMuvRUGmv0HpRGxlOXl0HHsoMPOqP6OsBRQ7nO6bZKG0ZXiQNjOmDqQdGxTh lbm [file] solder making+8Hi04vLQ/rfnh+MD/DAh2AmBaNisc/A06JL14j+3pTrbs 8P/gOFxmFaYcyVZx2jS0UHX2YEKtXAocpKCmnhp9tZ54nOS9/Oc1EOf9aHszoCX7tmVJHeOUkcxtlcO2 x8Z/1LVOKXahGOAzHvIZuxQQGts7dUgImo7A6dWbtz X79yehpmDB0c+tn3XkxvHzMVkSgNI4uvNh9aZ3gUSVFGqhCwR9zc2VhRNu9kJxs5R/qxa33zNPsISGtM PcQCMezJQpY1zSN5T3XRzrR5OHZUsWiRXlxJ9r8V8dh1kfMqhncQpD1r6CUa00lFB0dH9WLNpVN8HcTz RSLM2QS9wOHWlOwnLK9CFrwKUpHHattCta+Jw5rFm4 Frqi6Spx70+UmW3c3EvkuDfBP7Tf+Pp9fPRtP2yeg0632Cleg978/aM19oEG0zf1xr3LjGDraTc+tgYI IbnqYAl9W+Bpx9PqvJxXupI/BPd4Z6ftQi1wxIASyMMrooUgmtm5uZ1rbe+rc/W1bg/+V7Era8HRFc4x +1nHWW8l9F452fSZVi22m88L0v/aCX3+sO9x/Q9lC4 [file] ObD2BZU0pOPbPn7YTpGnLBZMGbCbJM3CMJc= ID Date Data Source [id number] 12/10/2020 05:52:44 PM EDT [facility] Name Value Range Interpretation Code Description Data Lou rce(s) Supporting Document(s) Consultation [facility] NQCNZe9jTyZUNyDr20/WXSvnHMOiv6MwSMulSLe7DUxfEARnH9RsZXD8jL6vIKI6NZtGRaWoDcNlTpKi lbm [file] ZYlkyCEajErcDGKPSoAqUEH3JHhlHMINSf6S ID Date Data Source [id number] [facility]2020 [facility]22[facility] Interpretation Code Description Data Lou rce(s) Supporting Document(s) Leukocytes [#/volume] in Blood by Automated count 8.4 10*3/uL 4-10 [facility] Erythrocytes [#/volume] in Blood by Automated count 3.48 10*6/uL 4.6- 6.1 L [facility] Hemoglobin [Mass/volume] in Blood 9.7 g/dL 13.5-18 L [facility] Hematocrit [Volume Fraction] of Blood by Automated count 29.9 % 4 1-53 L [facility] Erythrocyte mean corpuscular volume [Entitic volume] by Auto mated count 85.9 fL 80-96 [facility] Erythrocyte mean corpuscular hemoglobin [Entitic mass] by Automated count 27.9 pg 27-33 [facility] Erythrocyte mean corpuscular hemoglobin concentration [Mass/volume] by Automated count 32.5 g/dL 32.0-[facility] width [Ratio] by Automated count 17.3 % 11.5-14.5 H [facility] Platelets [#/volume] in Blood by Automated count 127 10*3/uL 150-400 L [facility] ID Date Data Source [id number] 12/10/2020 01:48:36 PM [facility] Name Value Range Interpretation Code Description Data Lou rce(s) Supporting Document(s) Bicarbonate [Moles/volume] in Serum 22 mmol/L 22-29 [facility] Chloride [Moles/volume] in Serum or Plasma 102 mmol/L 98-107 [facility] Creatinine [Mass/volume] in Serum or Plasma 0.54 mg/dL 0.70-1.20 L [facility] Glucose [Mass/volume] in Serum or Plasma 84 mg/dL 70-140 [facility] Potassium [Moles/volume] in Serum or Plasma 3.9 mmol/L 3.4-5.1 [facility] Sodium [Moles/volume] in Serum or Plasma 132 mmol/L 136-145 L [facility] Urea nitrogen [Mass/volume] in Serum or Plasma 7 mg/dL 6-20 [facility] Anion gap 3 in Serum or Plasma 8 mmol/L 8-15 [facility] Osmolality of Serum or Plasma by calculation 271 mosm/kg 275-300 L [facility] Creatinine/Urea nitrogen [Mass Ratio] in Serum or Plasma 13 [facility] Calcium [Mass/volume] in Serum or Plasma 7.9 mg/dL 8.6-10.0 L [facility] Glomerular filtration rate/1.73 sq M pre dicted among non-blacks [Volume Rate/Area] in Serum or Plasma by Creatinine-based formula (MDRD) >6 0 [facility] Glomerular filtration rate/1.73 sq M pre dicted among blacks [Volume Rate/Area] in Serum or Plasma by Creatinine-based formula (MDRD) >60 [facility] ID Date Data Source [id number] 12/10/2020 10:56:25 AM [facility] Name Value Range Interpretation Code Description Data Lou rce(s) Supporting Document(s) Calcium.ionized [Moles/volume] in Arterial blood 1.08 mmol/L 1.13-1.[address] [facility] [place] ID Date Data Source [id number] 12/10/2020 10:55:28 AM [facility] Name Value Range Interpretation Code Description Data Lou rce(s) Supporting Document(s) Leukocytes [#/volume] in Blood by Automated count 6.5 10*3/uL 4-10 [facility] Erythrocytes [#/volume] in Blood by Automated count 3.30 10*6/uL 4.6- 6.1 L [facility] Hemoglobin [Mass/volume] in Blood 9.2 g/dL 13.5-18 L [facility] Hematocrit [Volume Fraction] of Blood by Automated count 28.1 % 4 1-53 [facility] [place] Erythrocyte mean corpuscular volume [Entitic volume] by Auto mated count 85.3 fL 80-96 [facility] Erythrocyte mean corpuscular hemoglobin [Entitic mass] by Automated count 27.8 pg 27-33 [facility] Erythrocyte mean corpuscular hemoglobin concentration [Mass/volume] by Automated count 32.7 g/dL 32.0-36.0 [facility] Erythrocyte distribution width [Ratio] by Automated count 17.3 % 11.5-14.5 H [facility] Platelets [#/volume] in Blood by Automated count 110 10*3/uL 150-400 L [facility] ID Date Data Source [id number] 12/10/2020 06:01:23 AM [facility] Name Value Range Interpretation Code Description Data Lou rce(s) Supporting Document(s) Magnesium [Mass/volume] in Serum or Plasma 2.2 mg/dL 1.6-2.6 [facility] ID Date Data Source [id number] 12/10/2020 06:01:23 AM [facility] Value Range Interpretation Code Description Data Lou rce(s) Supporting Document(s) Phosphate [Mass/volume] in Serum or Plasma 3.1 mg/dL 2.5-4.5 [facility] ID Date Data Source [id number] 12/10/2020 06:01:23 AM [facility] Value Range Interpretation Code Description Data Lou rce(s) Supporting Document(s) Albumin [Mass/volume] in Serum or Plasma by Bromocresol green (BCG) dye binding method 2.3 g/dL 3.5-5.[address] [facility] Bilirubin.total [Mass/volume] in Serum or Plasma 1.2 mg/dL <1.2 H [facility] Calcium [Mass/volume] in Serum or Plasma 7.5 mg/dL 8.6-10.0 L [facility] Chloride [Moles/volume] in Serum or Plasma 102 mmol/L 98-107 [facility] Creatinine [Mass/volume] in Serum or Plasma 0.57 mg/dL 0.70-1.20 L [facility] Glucose [Mass/volume] in Serum or Plasma 88 mg/dL 70-140 [facility] Alkaline phosphatase [Enzymatic activity/volume] in Serum or Plasma 104 U/L 40-129 [facility] Potassium [Moles/volume] in Serum or Plasma 3.8 mmol/L 3.4-5.1 [facility] Protein [Mass/volume] in Serum or Plasma 4.7 g/dL 6.4-8.3 L [facility] Sodium [Moles/volume] in Serum or Plasma 129 mmol/L 136-145 L [facility] Aspartate aminotransferase [Enzymatic activity/volume] in Serum or Plasma 145 U/L <40 H [facility] Urea nitrogen [Mass/volume] in Serum or Plasma 8 mg/dL 6-20 [facility] Osmolality of Serum or Plasma by calculation 265 mosm/kg 275-300 L [facility] Creatinine/Urea nitrogen [Mass Ratio] in Serum or Plasma 14 [facility] Bicarbonate [Moles/volume] in Serum 20 mmol/L 22-29 L [facility] Alanine aminotransferase [Enzymatic activity/volume] in Seru m or Plasma 54 U/L <41 H [facility] Anion gap 3 in Serum or Plasma 6 mmol/L 8-15 L [facility] Glomerular filtration rate/1.73 sq M pre dicted among non-blacks [Volume Rate/Area] in Serum or Plasma by Creatinine-based formula (MDRD) >6 0 [facility] Glomerular filtration rate/1.73 sq M pre dicted among blacks [Volume Rate/Area] in Serum or Plasma by Creatinine-based formula (MDRD) >60 [facility] ID Date Data Source [id number] 12/10/2020 01:34:51 AM EDT [facility] Name Value Range Interpretation Code Description Data Lou rce(s) Supporting Document(s) Leukocytes [#/volume] in Blood by Automated count 7.5 10*3/uL 4-10 [facility] Erythrocytes [#/volume] in Blood by Automated count 2.95 10*6/uL 4.6- 6.1 [facility] [place] Hemoglobin [Mass/volume] in Blood 8.1 g/dL 13.5-18 L [facility] Hematocrit [Volume Fraction] of Blood by Automated count 25.3 % 4 1-53 [facility] [place] Erythrocyte mean corpuscular volume [Entitic volume] by Auto mated count 85.9 fL 80-96 [facility] Erythrocyte mean corpuscular hemoglobin [Entitic mass] by Automated count 27.5 pg 27-33 [facility] Erythrocyte mean corpuscular hemoglobin concentration [Mass/volume] by Automated count 32.1 g/dL 32.0-36.0 [facility] Erythrocyte distribution width [Ratio] by Automated count 17.2 % 11.5-14.5 H [facility] Platelets [#/volume] in Blood by Automated count 105 10*3/uL 150-400 L [facility] ID Date Data Source [id number] 12/09/2020 06:15:27 PM EDT [facility] Name Value Range Interpretation Code Description Data Lou rce(s) Supporting Document(s) Consultation [facility] [id number] lbm [file] [id number]== ID Date Data Source [id number] 12/09/2020 05:06:16 PM [facility] Name Value Range Interpretation Code Description Data Lou e(s) Supporting Document(s) Leukocytes [#/volume] in Blood by Automated count 6.0 10*3/uL 4-10 [facility] [facility] Erythrocytes [#/volume] in Blood by Automated count 3.13 10*6/uL 4.6- 6.1 L [facility] Hemoglobin [Mass/volume] in Blood 8.7 g/dL 13.5-18 L [facility] Hematocrit [Volume Fraction] of Blood by Automated count 26.6 % 4 1-53 L [facility] Erythrocyte mean corpuscular volume [Entitic volume] by Auto mated count 84.9 fL 80-96 [facility] Erythrocyte mean corpuscular hemoglobin [Entitic mass] by Automated count 27.9 pg 27-33 [facility] Erythrocyte mean corpuscular hemoglobin concentration [Mass/volume] by Automated count 32.9 g/dL [facility].0-[facility] width [Ratio] by Automated count 17.1 % 11.5-14.5 H [facility] Platelets [#/volume] in Blood by Automated count 100 10*3/uL 150-400 L [facility] ID Date Data Source [id number] 12/09/2020 12:45:01 PM EDT [facility] Name Value Range Interpretation Code Description Data Lou rce(s) Supporting Document(s) Glucose [Mass/volume] in Capillary blood by Glucometer 94 mg/dL 70- 140 [facility] ID Date Data Source [id number] 12/09/2020 11:21:01 AM [facility] US ABDOMEN LIMITED [id number] RESULTInte rpreted by:Jessica Lr, DOStudy: ULTRASOUND ABDOMEN [...] rce(s) Supporting Document(s) ID Date Data Source [id number] 12/[facility]:01[facility] Value Range Interpretation Code Description Data Lou rce(s) Supporting Document(s) Calcium.ionized [Moles/volume] in Arterial blood 1.13 mmol/L 1.13-1.3 2 [facility] ID Date Data Source [id number] 12/14/2020 10:43:44 AM [facility] Service Cmnt XXX-Imp : R ARMMicroorganis m XXX Cult : No growth 5 days Name Value Range Interpretation Code Description Data Lou rce(s) Supporting Document(s) ID Date Data Source [id number] 12/09/2020 06:24:47 AM [facility] Name Value Range Interpretation Code Description Data Lou rce(s) Supporting Document(s) Leukocytes [#/volume] in Blood by Automated count 6.9 10*3/uL 4-10 [facility] Erythrocytes [#/volume] in Blood by Automated count 2.54 10*6/uL 4.6- 6.1 L [facility] Hemoglobin [Mass/volume] in Blood 7.0 g/dL 13.5-18 L [facility] Hematocrit [Volume Fraction] of Blood by Automated count 21.3 % 4 1-53 L [facility] Erythrocyte mean corpuscular volume [Entitic volume] by Auto mated count 83.7 fL 80-96 [facility] Erythrocyte mean corpuscular hemoglobin [Entitic mass] by Automated count 27.4 pg 27-33 [facility] Erythrocyte mean corpuscular hemoglobin concentration [Mass/volume] by Automated count 32.7 g/dL 32.0-36.0 [facility] distribution width [Ratio] by Automated count 17.1 % 11.5-14.5 H [facility] Platelets [#/volume] in Blood by Automated count 107 10*3/uL 150-400 L [facility] ID Date Data Source [id number] 12/09/2020 06:41:24 AM EDT [facility] Name Value Range Interpretation Code Description Data Lou rce(s) Supporting Document(s) Albumin [Mass/volume] in Serum or Plasma by Bromocresol green (BCG) dye binding method 2.1 g/dL 3.5-5.2 [facility] Bilirubin.total [Mass/volume] in Serum or Plasma 1.1 mg/dL <1.2 [facility] Calcium [Mass/volume] in Serum or Plasma 7.2 mg/dL 8.6-10.0 L [facility] Chloride [Moles/volume] in Serum or Plasma 106 mmol/L 98-107 [facility] Creatinine [Mass/volume] in Serum or Plasma 0.47 mg/dL 0.70-1.20 L [facility] Glucose [Mass/volume] in Serum or Plasma 81 mg/dL 70-140 [facility] Alkaline phosphatase [Enzymatic activity/volume] in Serum or Plasma 104 U/L 40-129 [facility] Potassium [Moles/volume] in Serum or Plasma 4.0 mmol/L 3.4-5.1 [facility] Protein [Mass/volume] in Serum or Plasma 4.3 g/dL 6.4-8.3 L [facility] Sodium [Moles/volume] in Serum or Plasma 131 mmol/L 136-145 L [facility] Aspartate aminotransferase [Enzymatic activity/volume] in Serum or Plasma 52 U/L <40 H [facility] Urea nitrogen [Mass/volume] in Serum or Plasma 14 mg/dL 6-20 [facility] Osmolality of Serum or Plasma by calculation 272 mosm/kg 275-300 L [facility] Creatinine/Urea nitrogen [Mass Ratio] in Serum or Plasma 29 [facility] Bicarbonate [Moles/volume] in Serum 19 mmol/L 22-29 L [facility] Alanine aminotransferase [Enzymatic activity/volume] in Seru m or Plasma 19 U/L <41 [facility] Anion gap 3 in Serum or Plasma 6 mmol/L 8-15 L [facility] Glomerular filtration rate/1.73 sq M pre dicted among non-blacks [Volume Rate/Area] in Serum or Plasma by Creatinine-based formula (MDRD) >6 0 [facility] Glomerular filtration rate/1.73 sq M pre dicted among blacks [Volume Rate/Area] in Serum or Plasma by Creatinine-based formula (MDRD) >60 [facility] ID Date Data Source [id number] 12/09/2020 09:48:[facility] Name Value Range Interpretation Code Description Data Lou rce(s) Supporting Document(s) Magnesium [Mass/volume] in Serum or Plasma 1.7 mg/dL 1.6-2.6 [facility] ID Date Data Source [id number] 12/09/2020 09:48:45 AM [facility] Name Value Range Interpretation Code Description Data Lou rce(s) Supporting Document(s) Phosphate [Mass/volume] in Serum or Plasma 2.3 mg/dL 2.5-4.5 L [facility] ID Date Data Source [id number] 12/09/2020 02:18:20 AM [facility] Name Value Range Interpretation Code Description Data Lou rce(s) Supporting Document(s) Color of Urine [facility] Clarity of Urine [facility] Specific gravity of Urine by Refractometry automated 1.010 1.003 -1.030 [facility] pH of Urine by Automated test strip 7.0 5.0-8.0 [facility] Protein [Mass/volume] in Urine by Automated test strip Neg [facility] Glucose [Mass/volume] in Urine by Automated test strip Neg [facility] Ketones [Mass/volume] in Urine by Automated test strip Neg [facility] Bilirubin.total [Presence] in Urine by Automated test strip Negative [facility] Hemoglobin [Presence] in Urine by Automated test strip Neg [facility] Leukocyte esterase [Presence] in Urine by Automated test strip Negative [facility] Nitrite [Presence] in Urine by Automated test strip Negati ve [facility] Leukocytes [#/area] in Urine sediment by Automated count 0 /HPF 0 -5 [facility] Erythrocytes [#/area] in Urine sediment by Automated count 0 /HPF 0-3 [facility] Service comment [facility] ID Date Data Source [id number] 12/14/2020 10:43:44 AM [facility] Service Cmnt XXX-Imp : L ARMMicroorganis m XXX Cult : No growth 5 days Name Value Range Interpretation Code Description Data Lou rce(s) Supporting Document(s) ID Date Data Source [id number] 12/11/2020 07:07:34 AM EDT [facility] Name Value Range Interpretation Code Description Data Lou rce(s) Supporting Document(s) ABO and Rh group [Type] in Blood [facility] Blood group antibody screen [Presence] in Serum or Plasma [facility] Performed at [facility], Raquel Stark Geeta brody, [id number] ID Date Data Source [id number] 12/08/2020 11:59:00 PM EDT [facility] Name Value Range Interpretation Code Description Data Lou rce(s) Supporting Document(s) SARS-CoV-2 RNA 2019 nCoV Real-Time RT-PCR: NOT DETECTED [facility] This lab was ordered by [facility] and reported by [facility]. ID Date Data Source [id number] 12/09/2020 09:30:[address] [facility] Value Range Interpretation Code Description Data Lou rce(s) Supporting Document(s) Specimen source [Identifier] of Unspecified specimen [facility] SARS-CoV-2 RNA 2019 nCoV Real-Time RT-PCR: NOT DETECTED [facility] Assay Performed [facility] Patients first test for [facility] Patient employed in healthcare setting [facility] Patient has symptoms related to [facility] When did you start to experience these symptoms [Date and time] [Phen X] [facility] Patient was hospitalized because of this condition [facility] patient was admitted to ICU for [facility] Patient resides in a congregate care setting [facility] status [facility] ID Date Data Source [id number] 12/09/2020 12:23:05 AM EDT [facility] Name Value Range Interpretation Code Description Data Lou rce(s) Supporting Document(s) Leukocytes [#/volume] in Blood by Automated count 11.0 10*3/uL 4-10 H [facility] Erythrocytes [#/volume] in Blood by Automated count 2.48 10*6/uL 4.6- 6.1 L [facility] Hemoglobin [Mass/volume] in Blood 6.6 g/dL 13.5-18 L [facility] Hematocrit [Volume Fraction] of Blood by Automated count 20.1 % 4 1-53 [facility] Called to and read back by fito starr rn [id number] at 0022 by 1522 Erythrocyte mean corpuscular volume [Entitic volume] by Auto mated count 81.1 fL 80-96 [facility] Erythrocyte mean corpuscular hemoglobin [Entitic mass] by Automated count 26.6 pg 27-33 L [facility] Erythrocyte mean corpuscular hemoglobin concentration [Mass/volume] by Automated count 32.7 g/dL 32.0-36.0 [facility] al Erythrocyte distribution width [Ratio] by Automated count 16.2 % 11.5-14.5 H [facility] Platelets [#/volume] in Blood by Automated count 131 10*3/uL 150-400 L [facility] ID Date Data Source [id number] 12/09/2020 12:31:19 AM [facility] Value Range Interpretation Code Description Data Lou rce(s) Supporting Document(s) aPTT in Platelet poor plasma by Coagulation assay 31.0 s 24.0-33. 0 [facility] ID Date Data Source [id number] 12/09/2020 12:31:19 AM [facility] Value Range Interpretation Code Description Data Lou rce(s) Supporting Document(s) Prothrombin time (PT) 16.9 s 11.6-14.0 H [facility] INR in Platelet poor plasma by Coagulation assay 1.44 [facility] Routine intensity oral anticoagulation I NR is typically 2.0-3.0. Target INR must be clinically individualized. ID Date Data Source [id number] 12/09/2020 12:52:30 AM [facility] Value Range Interpretation Code Description Data Lou rce(s) Supporting Document(s) Lipase [Enzymatic activity/volume] in Serum or Plasma 226 U/L 13-6 0 H [facility] ID Date Data Source [id number] 12/09/2020 12:52:30 AM [facility] Value Range Interpretation Code Description Data Lou rce(s) Supporting Document(s) Albumin [Mass/volume] in Serum or Plasma by Bromocresol green (BCG) dye binding method 2.4 g/dL 3.5-5.2 L [facility] al Bilirubin.total [Mass/volume] in Serum or Plasma 1.0 mg/dL <1.2 [facility] Calcium [Mass/volume] in Serum or Plasma 7.9 mg/dL 8.6-10.0 L [facility] Chloride [Moles/volume] in Serum or Plasma 97 mmol/L 98-107 L [facility] Creatinine [Mass/volume] in Serum or Plasma 0.49 mg/dL 0.70-1.20 L [facility] Glucose [Mass/volume] in Serum or Plasma 92 mg/dL 70-140 [facility] Alkaline phosphatase [Enzymatic activity/volume] in Serum or Plasma 121 U/L 40-129 [facility] Potassium [Moles/volume] in Serum or Plasma 3.9 mmol/L 3.4-5.1 [facility] Protein [Mass/volume] in Serum or Plasma 4.8 g/dL 6.4-8.3 L [facility] Sodium [Moles/volume] in Serum or Plasma 125 mmol/L 136-145 L [facility] Aspartate aminotransferase [Enzymatic activity/volume] in Serum or Plasma 52 U/L <40 H [facility] Urea nitrogen [Mass/volume] in Serum or Plasma 17 mg/dL 6-20 [facility] Osmolality of Serum or Plasma by calculation 261 mosm/kg 275-300 [facility] Creatinine/Urea nitrogen [Mass Ratio] in Serum or Plasma 35 [facility] Bicarbonate [Moles/volume] in Serum 22 mmol/L 22-29 [facility] Alanine aminotransferase [Enzymatic activity/volume] in Seru m or Plasma 21 U/L <41 [facility] Anion gap 3 in Serum or Plasma 6 mmol/L 8-15 L [facility] Glomerular filtration rate/1.73 sq M pre dicted among non-blacks [Volume Rate/Area] in Serum or Plasma by Creatinine-based formula (MDRD) >6 0 [facility] Glomerular filtration rate/1.73 sq M pre dicted among blacks [Volume Rate/Area] in Serum or Plasma by Creatinine-based formula (MDRD) >60 [facility] ID Date Data Source [id number] 12/08/2020 06:44:00 PM EDT [facility] Name Value Range Interpretation Code Description Data Lou rce(s) Supporting Document(s) SARS coronavirus 2 RNA [Presence] in Res piratory specimen by TOYA with probe detection [facility] lab was ordered by [facility] a nd reported by [facility]. ID Date Data Source [id number] 11/26/2020 08:42:12 AM EDT [facility] Name Value Range Interpretation Code Description Data Lou rce(s) Supporting Document(s) ED Provider Note [facility] TKTBVo7uLhESPuHr38/FHXosICBiu6NcEHnsSVx3IBjnYXApE1LwOST2qW6wZNF9QRcEPvRdGiTcLmP0 lbm [file] AwMzQzNiAwMDAwMCBuDQowMDAwMDAzNjQwIDAwMDAw TF8ZFcOcLISxYZY1AqOwJRWcMCYlme5RGRKcXLAoCxM4URWwQPSrJQAeZLgiVXDoVYG3BpZ8GEAvNTGk VS5DKgNzOZHqZLk8EHCqEQCfOPSqgx6OJSXqWNOuNgXpJCIbJDOdRRLzUVsuBBNqFEDoWyJ0ROYpYRJo MT8IGpYxDGNyQXL7XJJxDZLeDXLhxg4XSWUyPIKrOa RiSRBkWEPuZCFpBUsqVFMkLYH9FCLuBZIcMZDjYE1RJlJnUCCfGMu7GQxhUNRyPYExnf2DVOErRVEfYf N2SAIjZEOuDUInGYaaKPWvIEXsUjK9BCYoKKGnUE3AQjApNXWhEhLwZkskBSBxTABero9KHPYwFHUpSo S1GJYeWSWxWDDgMWidRFVgXEF3ZkfyDFYoQQIaSS3G XyWiVPXxYke3KVImKZQqHYMmmd5OZSOwSILlTpIxEbYeALAnQDWkQJscAYXzSUTmBPTgQKCoVJEcPU1D HvJbBGQpUnO5JPHaGRSpGUJahf5EVMIlKRKqJJeuYUAgDCSuKVWeNNziYAVvKUV3WqcdSYEpWNMuDE3E BwFxQKQzLvy3OCsmBDHyFHLlzr3USBMqSJS1LUj9UF UlQUWvOGTjACziMTTaLWGyWVGxSMBgXGMvUR8JNgVbDDCpLFQlOqHxWZLcXPBilh1FZWVvFOB9NxQeFJ ZjKEAsDDWoWCbsEVOlNBUhPFSoVDJlDRSyPH0XYiUdUWUyEKUaSeGmLHPwDAKxkp9TKLXfMMO7DeU2Zl ShBRTvYAQcJBraTXJfIVMhLwPsLRKeQTMsFT6ARrDj BMIfQLNtBiUjSHWaBAZezj9WKBUbJGT9CXK2OrZeSGVbMRVsFLkqYYGuUHM2NkNsVHOeXLKiAM7FEoZc PBTnJOV3RQWbTZOnGPXwov7XNEQeFBY6EmQ2VmWhEPXlAHBaYKhiQMMrWDM5UOymVBVjUGAuEG7XSrGc VXPgVUloXyQyBGGqALPkbg1GEYWxRRA1YgF3MhReME UoIYNxRHgpMLIdJRN3UwLhHIRgPCCdZO3OTfClRMGjFBsbMCLaIVLhLTOsvb9TWOUsKNS9JWR2NhZgVQ PuADNaRAsvCQJcSNL2IMJ2SARnWZViFQ2KOnPyQVAjOFb1KnkxTZUaGOSoyj1VSDQhYPH9DAt6XyTpKJ XfWSGdIWnqPTPtIOYgIQL0OKVdZSYkTF3RLeLkMNQr SlOhHYxzTABeUOJfmh7LlKClfHezmh6XIEeIQq2IeIsaTWDmFYcgTo6ihCC3BgStFABJYa0KbqCmVWBi FCMUZPpsOSMaFUOqZEW4FKPmUvO3YECcMXHdIWX0PNtuZ1F8SvbhZRB2TqX7Z4I1UoclUnP7QrkjNKYe CEX4SvliMYFuAgU7LMB2Kne+YG3zNYs+Bo8Ax2TsptN0ifPqWKr2SYQ0Kn7PQACVY0GLEq== ID Date Data Source [id number] 11/17/2020 11:27:03 PM EDT [facility] Name Value Range Interpretation Code Description Data Lou rce(s) Supporting Document(s) Discharge Summary [facility] FBVNOo5wWjIXGmTq37/VONvmWWJiw7DlAHqoTKl0SYlkMLCvF0XqJGG2qG7pCQX3OOcKOuVbOaQzUfAj lbm [file] X4VxS9QGadMj0dAHYGRc3+LStjiEBwzTsdCJWFZjX5IMM1FEulOFQFMp0H ID Date Data Source [id number] 11/17/2020 03:42:22 PM EDT [facility] Name Value Range Interpretation Code Description Data Lou rce(s) Supporting Document(s) Progress Note [facility] LQMJWl1dGkYELaEk62/JCJaoLLMvg3SrJZkfWMb4RDszUXFlH4RrZXT1eU1fFDC2RMcQEmMaLgEyEfCv lbm [file] YNCg== ID Date Data Source [id number] 11/17/2020 03:24:34 PM EDT [facility] Name Value Range Interpretation Code Description Data Lou rce(s) Supporting Document(s) Consultation [facility] SDUOOv8oVkLMGmWf52/DTTgiQMZli4VkQQurYCq4MKjdZLYiK7YfROV8iD0rVYE2FJcBOyUtFgEoPwUw lbm [file] AlHIX1J0AaOVIuAWjdTJL6LIzjSLIkLZBxQqAtBZ 2QZh1QMwQ4OXI7uKOiPb9HCqR7RYSHOdWpTO8IWWb= ID Date Data Source [id number] 11/17/2020 02:27:40 PM EDT [facility] Name Value Range Interpretation Code Description Data Lou rce(s) Supporting Document(s) Leukocytes [#/volume] in Blood by Automated count 8.2 10*3/uL 4-10 [facility] Erythrocytes [#/volume] in Blood by Automated count 3.30 10*6/uL 4.6- 6.1 L [facility] Hemoglobin [Mass/volume] in Blood 8.8 g/dL 13.5-18 L [facility] Hematocrit [Volume Fraction] of Blood by Automated count 26.5 % 4 1-53 L [facility] Erythrocyte mean corpuscular volume [Entitic volume] by Auto mated count 80.3 fL 80-96 [facility] Erythrocyte mean corpuscular hemoglobin [Entitic mass] by Automated count 26.6 pg 27-33 L [facility] Erythrocyte mean corpuscular hemoglobin concentration [Mass/volume] by Automated count 33.1 g/dL 32.0-36.[facility] width [Ratio] by Automated count 19.2 % 11.5-14.5 H [facility] Platelets [#/volume] in Blood by Automated count 203 10*3/uL 150-400 [facility] Confirmed ID Date Data Source [id number] 11/17/2020 09:20:32 AM EDT [facility] US ABDOMEN LIMITED [id number] RESULTInte rpreted by:ALEX CarringtonROCEDURE INFORMATION: Exam: US [...] which has nodular contour. Series 1, image [id number] indicates normal portal hepatopetal flow of the [...] rce(s) Supporting Document(s) ID Date Data Source [id number] 11/17/2020 08:51:22 AM [facility] Name Value Range Interpretation Code Description [facility] VJHTCq1cJrJZPlZz48/KSBttBBTlz0XyGSsvWNh7VFnoDIJiY3PiMYO4tD3oNZZ4QBlNYgKbFzLzVzBn m [file] [id number]V2LPAn== ID Date Data Source [id number] 11/17/2020 08:31:25 AM EDT [facility] Name Value Range Interpretation Code Description Data Lou rce(s) Supporting Document(s) Glucose [Mass/volume] in Capillary blood by Glucometer 133 mg/dL 70- 140 [facility] ID Date Data Source [id number] 11/17/2020 07:48:05 AM EDT [facility] Name Value Range Interpretation Code Description Data Lou rce(s) Supporting Document(s) History and Physical [facility] BGRFCf8iRdRJCqRa37/SHAgiDVQjw6RiASniOZz0YTmqDFSyS8MnQJH2wV2zADK0EKpQFyMlEgLvYbCu lbm [file] 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+BKIciPPoPDAiGagKhxNq6cP2qvIKylQ02RS8aU7FlrHIN0+vZ0ch9UkEK+30bc7w4dVrB9pFUHnA [file] [id number] ID Date Data Source [id number] 11/17/2020 03:04:17 AM EDT [facility] Name Value Range Interpretation Code Description Data Lou rce(s) Supporting Document(s) Leukocytes [#/volume] in Blood by Automated count 7.4 10*3/uL 4-10 [facility] Erythrocytes [#/volume] in Blood by Automated count 3.00 10*6/uL 4.6- 6.1 L [facility] Hemoglobin [Mass/volume] in Blood 7.8 g/dL 13.5-18 L [facility] Hematocrit [Volume Fraction] of Blood by Automated count 24.0 % 4 1-53 L [facility] Erythrocyte mean corpuscular volume [Entitic volume] by Auto mated count 80.2 fL 80-96 [facility] Erythrocyte mean corpuscular hemoglobin [Entitic mass] by Automated count 26.1 pg 27-33 L [facility] Erythrocyte mean corpuscular hemoglobin concentration [Mass/volume] by Automated count 32.6 g/dL 32.0-36.[facility] width [Ratio] by Automated count 19.2 % 11.5-14.5 H [facility] Platelets [#/volume] in Blood by Automated count 165 10*3/uL 150-400 [facility] Differential cell count method - Blood [facility] Neutrophils/100 leukocytes in Blood by Automated count 62 % [facility] Lymphocytes/100 leukocytes in Blood by Automated count 13 % [facility] Monocytes/100 leukocytes in Blood by Automated count 21 % [facility] Eosinophils/100 leukocytes in Blood by Automated count 3 % [facility] Basophils/100 leukocytes in Blood by Automated count 1 % [facility] Neutrophils [#/volume] in Blood by Automated count 4.58 10*3/uL 1.8-7 .0 [facility] Lymphocytes [#/volume] in Blood by Automated count 0.99 10*3/uL 1.2-4 .0 L [facility] Monocytes [#/volume] in Blood by Automated count 1.58 10*3/uL 0-0.8 H [facility] Eosinophils [#/volume] in Blood by Automated count 0.22 10*3/uL 0-0.5 [facility] Basophils [#/volume] in Blood by Automated count 0.04 10*3/uL 0-0.2 [facility] Nucleated erythrocytes/100 leukocytes [Ratio] in Blood by Automated count 0 /100{WBCs} 0-0 [facility] ID Date Data Source [id number] 11/17/2020 03:21:33 AM EDT [facility] Name Value Range Interpretation Code Description Data Lou rce(s) Supporting Document(s) Bicarbonate [Moles/volume] in Serum 27 mmol/L 22-29 [facility] Chloride [Moles/volume] in Serum or Plasma 97 mmol/L 98-107 [facility] Creatinine [Mass/volume] in Serum or Plasma 0.44 mg/dL 0.70-1.20 [facility] Glucose [Mass/volume] in Serum or Plasma 117 mg/dL 70-140 [facility] Potassium [Moles/volume] in Serum or Plasma 3.2 mmol/L 3.4-5.1 [facility] Sodium [Moles/volume] in Serum or Plasma 132 mmol/L 136-145 [facility] Urea nitrogen [Mass/volume] in Serum or Plasma 6 mg/dL 6-20 [facility] Anion gap 3 in Serum or Plasma 8 mmol/L 8-15 [facility] Osmolality of Serum or Plasma by calculation 273 mosm/kg 275-300 L [facility] Creatinine/Urea nitrogen [Mass Ratio] in Serum or Plasma 14 [facility] Calcium [Mass/volume] in Serum or Plasma 7.7 mg/dL 8.6-10.0 L [facility] Glomerular filtration rate/1.73 sq M pre dicted among non-blacks [Volume Rate/Area] in Serum or Plasma by Creatinine-based formula (MDRD) >6 0 [facility] Glomerular filtration rate/1.73 sq M pre dicted among blacks [Volume Rate/Area] in Serum or Plasma by Creatinine-based formula (MDRD) >60 [facility] ID Date Data Source [id number] 11/17/2020 02:46:[address] [facility] Value Range Interpretation Code Description Data Lou rce(s) Supporting Document(s) Glucose [Mass/volume] in Capillary blood by Glucometer 132 mg/dL 70- 140 [facility] ID Date Data Source [id number] 11/16/2020 11:03:46 PM [facility] Value Range Interpretation Code Description Data Lou rce(s) Supporting Document(s) Glucose [Mass/volume] in Capillary blood by Glucometer 152 mg/dL 70- 140 [facility] ID Date Data Source [id number] 11/16/2020 07:34:41 PM [facility] Value Range Interpretation Code Description Data Lou rce(s) Supporting Document(s) Glucose [Mass/volume] in Capillary blood by Glucometer 135 mg/dL 70- 140 [facility] ID Date Data Source [id number] 11/16/2020 05:29:34 PM [facility] Value Range Interpretation Code Description Data Lou rce(s) Supporting Document(s) Glucose [Mass/volume] in Capillary blood by Glucometer 90 mg/dL 70- 140 [facility] ID Date Data Source [id number] 11/16/2020 04:15:48 PM [facility] Value Range Interpretation Code Description Data Lou rce(s) Supporting Document(s) Glucose [Mass/volume] in Capillary blood by Glucometer 218 mg/dL 70- 140 [facility] ID Date Data Source [id number] 11/16/2020 03:39:03 PM [facility] Value Range Interpretation Code Description Data Lou rce(s) Supporting Document(s) Leukocytes [#/volume] in Blood by Automated count 8.0 10*3/uL 4-10 [facility] Erythrocytes [#/volume] in Blood by Automated count 3.42 10*6/uL 4.6- 6.1 L [facility] Hemoglobin [Mass/volume] in Blood 8.9 g/dL 13.5-18 L [facility] Hematocrit [Volume Fraction] of Blood by Automated count 27.6 % 4 1-53 L [facility] Erythrocyte mean corpuscular volume [Entitic volume] by Auto mated count 80.8 fL 80-96 [facility] Erythrocyte mean corpuscular hemoglobin [Entitic mass] by Automated count 26.1 pg 27-33 L [facility] Erythrocyte mean corpuscular hemoglobin concentration [Mass/volume] by Automated count 32.3 g/[facility].0-[facility] width [Ratio] by Automated count 19.1 % 11.5-14.5 H [facility] Platelets [#/volume] in Blood by Automated count 159 10*3/uL 150-400 [facility] Differential cell count method - Blood [facility] Neutrophils/100 leukocytes in Blood by Automated count 69 % [facility] Lymphocytes/100 leukocytes in Blood by Automated count 10 % [facility] Monocytes/100 leukocytes in Blood by Automated count 16 % [facility] Eosinophils/100 leukocytes in Blood by Automated count 4 % [facility] Basophils/100 leukocytes in Blood by Automated count 1 % [facility] Neutrophils [#/volume] in Blood by Automated count 5.58 10*3/uL 1.8-7 .0 [facility] Lymphocytes [#/volume] in Blood by Automated count 0.79 10*3/uL 1.2-4 .0 L [facility] Monocytes [#/volume] in Blood by Automated count 1.32 10*3/uL 0-0.8 H [facility] Eosinophils [#/volume] in Blood by Automated count 0.31 10*3/uL 0-0.5 [facility] Basophils [#/volume] in Blood by Automated count 0.04 10*3/uL 0-0.2 [facility] Nucleated erythrocytes/100 leukocytes [Ratio] in Blood by Automated count 0 /100{WBCs} 0-0 [facility] ID Date Data Source [id number] 11/16/2020 11:51:13 AM [facility] Name Value Range Interpretation Code Description Data Lou rce(s) Supporting Document(s) Glucose [Mass/volume] in Capillary blood by Glucometer 106 mg/dL 70- 140 [facility] ID Date Data Source [id number] 11/16/2020 07:59:02 AM [facility] Name Value Range Interpretation Code Description Data Lou rce(s) Supporting Document(s) Glucose [Mass/volume] in Capillary blood by Glucometer 119 mg/dL 70- 140 [facility] ID Date Data Source [id number] 11/16/2020 05:48:16 AM EDT [facility] Name Value Range Interpretation Code Description Data Lou rce(s) Supporting Document(s) Glucose [Mass/volume] in Capillary blood by Glucometer 101 mg/dL 70- 140 [facility] ID Date Data Source [id number] 11/19/2020 09:27:00 AM EDT [facility] Surgical Pathology ReportName: JEFRY MORINMRN: [id number] Number: [id number] Date: 11/16/2020 00:00Received Date: 11/16/2020 11:32Physician(s): RON LINARES MD OZDEN, NURI,[facility] To:[facility]imen[facility]s) ReceivedA: Antrum biopsyClinical HistoryMelena.DiagnosisSTOMACH, ANTRUM, BIOPSY: MILD CHRONIC GASTRITIS. NO H. PYLORI IDENTIFIED. Electronically Signed By Kelle Ordaz MD, Attending Pathologist 109:27:42Professional services performed at [facility] Pathology Laboratory [facility], [address] [place] [address]. Unless 'gross-only'is specified, the final diagnosis is [...] and their pe rformance characteristics determined by [facility] Pathology department. They have not been cleared or approved by the USFood and Drug Administration. The FDA has determined that such clearanceor approval is not necessary. Name Value Range Interpretation Code Description Data Lou rce(s) Supporting Document(s) ID Date Data Source [id number] 11/16/2020 12:27:10 AM EDT [facility] Name Value Range Interpretation Code Description Data Lou rce(s) Supporting Document(s) Bicarbonate [Moles/volume] in Serum 21 mmol/L 22-29 L [facility] Chloride [Moles/volume] in Serum or Plasma 99 mmol/L 98-107 [facility] Creatinine [Mass/volume] in Serum or Plasma 0.54 mg/dL 0.70-1.20 L [facility] Glucose [Mass/volume] in Serum or Plasma 106 mg/dL 70-140 [facility] Potassium [Moles/volume] in Serum or Plasma 4.0 mmol/L 3.4-5.1 [facility] Sodium [Moles/volume] in Serum or Plasma 130 mmol/L 136-145 L [facility] Urea nitrogen [Mass/volume] in Serum or Plasma 8 mg/dL 6-20 [facility] Anion gap 3 in Serum or Plasma 11 mmol/L 8-15 [facility] Osmolality of Serum or Plasma by calculation 269 mosm/kg 275-300 [facility] [place] Creatinine/Urea nitrogen [Mass Ratio] in Serum or Plasma 16 [facility] Calcium [Mass/volume] in Serum or Plasma 8.2 mg/dL 8.6-10.0 [facility] [place] Glomerular filtration rate/1.73 sq M pre dicted among non-blacks [Volume Rate/Area] in Serum or Plasma by Creatinine-based formula (MDRD) >6 0 [facility] Glomerular filtration rate/1.73 sq M pre dicted among blacks [Volume Rate/Area] in Serum or Plasma by Creatinine-based formula (MDRD) >60 [facility] ID Date Data Source [id number] 11/16/2020 12:16:14 AM EDT [facility] Name Value Range Interpretation Code Description Data Lou rce(s) Supporting Document(s) Leukocytes [#/volume] in Blood by Automated count 10.6 10*3/uL 4-10 H [facility] Erythrocytes [#/volume] in Blood by Automated count 3.43 10*6/uL 4.6- 6.1 L [facility] Hemoglobin [Mass/volume] in Blood 8.9 g/dL 13.5-18 L [facility] Hematocrit [Volume Fraction] of Blood by Automated count 27.7 % 4 1-53 L [facility] Erythrocyte mean corpuscular volume [Entitic volume] by Auto mated count 80.9 fL 80-96 [facility] Erythrocyte mean corpuscular hemoglobin [Entitic mass] by Automated count 25.9 pg 27-33 L [facility] Erythrocyte mean corpuscular hemoglobin concentration [Mass/volume] by Automated count 32.0 g/dL 32.0-36.0 [facility] Erythrocyte distribution width [Ratio] by Automated count 18.7 % 11.5-14.5 H [facility] Platelets [#/volume] in Blood by Automated count 136 10*3/uL 150-400 L [facility] Differential cell count method - Blood [facility] Neutrophils/100 leukocytes in Blood by Automated count 72 % [facility] Lymphocytes/100 leukocytes in Blood by Automated count 7 % [facility] Monocytes/100 leukocytes in Blood by Automated count 17 % [facility] Eosinophils/100 leukocytes in Blood by Automated count 3 % [facility] Basophils/100 leukocytes in Blood by Automated count 1 % [facility] Neutrophils [#/volume] in Blood by Automated count 7.64 10*3/uL 1.8-7 .0 H [facility] Lymphocytes [#/volume] in Blood by Automated count 0.71 10*3/uL 1.2-4 .0 L [facility] Monocytes [#/volume] in Blood by Automated count 1.83 10*3/uL 0-0.8 H [facility] Eosinophils [#/volume] in Blood by Automated count 0.34 10*3/uL 0-0.5 [facility] Basophils [#/volume] in Blood by Automated count 0.06 10*3/uL 0-0.2 [facility] Nucleated erythrocytes/100 leukocytes [Ratio] in Blood by Automated count 0 /100{WBCs} 0-0 [facility] ID Date Data Source [id number] 11/15/2020 11:51:31 PM EDT [facility] Name Value Range Interpretation Code Description Data Lou rce(s) Supporting Document(s) Glucose [Mass/volume] in Capillary blood by Glucometer 108 mg/dL 70- 140 [facility] ID Date Data Source [id number] 11/15[facility]2020 09:23:[facility] Interpretation Code Description Data Lou rce(s) Supporting Document(s) [facility] NGLFHp1zArBSUsHt27/QXYrjDNBvf4MmRXmiMOv3DIktWROqU2NjFPE6yC7aTAS0NAnOMoHcXaMcRxE2 lbm VqVfhFViFhZJYzUprAGqObPAseDeudnNTsUE5JxRL0ZZQsH47xTTNaCNVaT2DgJTL0VPB+Rm4HBMDvvW TwOZ8OTxuN7C0EaxnJJJ1WmV/FIDDEIwam9uHwiIY3GCbu3XVLYVKaPFWgRoKVvchtWv3+xdtLMKr7fo HNO7DK86kmIb/MGYxBG2KC/arrJco6l0TJ3g/61zB2 VO9O/fUvalPNddbVNr+sFdFHF7MQsKvEg6Ii0wb5eAIXw9ug4K5w3lHWhjpMBRCAD9Q41M34u7Vn/6ts 021NAuQoh9dal3uNboNB27BkpTj2YU5tOlKuuxNBi7JPfQaEYgLZoTJMthxPiIYKfU7iu8Wj7lGRliQi A/ycg2W/IveEv9KjaQHUqeI0HPusRcJn8wnQjsboGa AdfF4Bwj7dslo0VZC9u+3AXXdum+hGXUtojkZ5Tztr+2cUZ0lsW0Va8Wvzv9xBdwnXAI+kDY1WMS2e2v Zs/6qwGdbPqDk0PUbj0TW9w35TInb4qiJSbm1lH0jgCk9yy+WoaaxjMufD9cxlT5f87Hy3UIT2iQV5t/ 1XosDyFNCMOxQtx9wD7r0wXsGvLK27MhD4bUQNrVL0 oDvxy1ZvFODyNlOQbmFHfZ/oaTCa8vryewaohQWBk7bpZsEAJ+AhgEzoomsY4tWNosCDQfQp265YtVtx Zunk++QSZ1Eg13gK1IT0U1ttkRFzrzfo7/HKlz6vZFV42qNX4m11CsAI5//MbUMU5/rfprbsMgcdJwff 0kLBYLCOT6QuiRgSRAtPGDW/WUaw05KSYDZAe1ADZm [file] OTUzOTQ+WQ0hBAv+Ll3Hc0KavpM9uuVkDJpfVts4Ox5SEZVPL4LLZa== ID Date Data Source [id number] 11/15/2020 07:26:24 PM [facility] Value Range Interpretation Code Description Data Lou rce(s) Supporting Document(s) Glucose [Mass/volume] in Capillary blood by Glucometer 109 mg/dL 70- 140 [facility] ID Date Data Source [id number] 11/15/2020 04:11:20 PM [facility] Value Range Interpretation Code Description Data Lou rce(s) Supporting Document(s) Glucose [Mass/volume] in Capillary blood by Glucometer 111 mg/dL 70- 140 [facility] ID Date Data Source [id number] 11/15/2020 04:23:03 PM [facility] Value Range Interpretation Code Description Data Lou rce(s) Supporting Document(s) Albumin [Mass/volume] in Serum or Plasma by Bromocresol green (BCG) dye binding method 3.3 g/dL 3.5-5.2 [facility] Bilirubin.total [Mass/volume] in Serum or Plasma 1.9 mg/dL <1.2 H [facility] Bilirubin.direct [Mass/volume] in Serum or Plasma 1.1 mg/dL <0.3 H [facility] Alkaline phosphatase [Enzymatic activity/volume] in Serum or Plasma 135 U/L 40-129 H [facility] Aspartate aminotransferase [Enzymatic activity/volume] in Serum or Plasma 267 U/L <40 H [facility] Alanine aminotransferase [Enzymatic activity/volume] in Seru m or Plasma 136 U/L <41 H [facility] Protein [Mass/volume] in Serum or Plasma 5.9 g/dL 6.4-8.3 L [facility] ID Date Data Source [id number] 11/15/2020 05:07:41 PM [facility] Value Range Interpretation Code Description Data Lou rce(s) Supporting Document(s) Leukocytes [#/volume] in Blood by Automated count 9.0 10*3/uL 4-10 [facility] Erythrocytes [#/volume] in Blood by Automated count 3.38 10*6/uL 4.6- 6.1 L [facility] Hemoglobin [Mass/volume] in Blood 9.0 g/dL 13.5-18 L [facility] Hematocrit [Volume Fraction] of Blood by Automated count 27.3 % 4 1-53 L [facility] Erythrocyte mean corpuscular volume [Entitic volume] by Auto mated count 80.8 fL 80-96 [facility] Erythrocyte mean corpuscular hemoglobin [Entitic mass] by Automated count 26.7 pg 27-33 L [facility] Erythrocyte mean corpuscular hemoglobin concentration [Mass/volume] by Automated count 33.0 g/dL 32.0-36.[facility] E[facility]throcyte distribution width [Ratio] by Automated count 18.6 % 11.5-14.5 H [facility] Platelets [#/volume] in Blood by Automated count 124 10*3/uL 150-400 L [facility] Confirmed Differential cell count method - Blood [facility] Neutrophils/100 leukocytes in Blood by Automated count 76 % [facility] Lymphocytes/100 leukocytes in Blood by Automated count 6 % [facility] Monocytes/100 leukocytes in Blood by Automated count 14 % [facility] Eosinophils/100 leukocytes in Blood by Automated count 3 % [facility] Basophils/100 leukocytes in Blood by Automated count 1 % [facility] Neutrophils [#/volume] in Blood by Automated count 6.78 10*3/uL 1.8-7 .0 [facility] Lymphocytes [#/volume] in Blood by Automated count 0.56 10*3/uL 1.2-4 .0 L [facility] Monocytes [#/volume] in Blood by Automated count 1.26 10*3/uL 0-0.8 H [facility] Eosinophils [#/volume] in Blood by Automated count 0.29 10*3/uL 0-0.5 [facility] Basophils [#/volume] in Blood by Automated count 0.06 10*3/uL 0-0.2 [facility] Nucleated erythrocytes/100 leukocytes [Ratio] in Blood by Automated count 0 /100{WBCs} 0-0 [facility] ID Date Data Source [id number] 11/15/2020 04:56:38 PM [facility] Name Value Range Interpretation Code Description Data Lou rce(s) Supporting Document(s) Hepatitis C virus Ab [Presence] in Serum or Plasma by Immuno assay Non Reactive [facility] No serological evidence of active infect ion. If recent exposure is suspected, test for HCV RNA. ID Date Data Source [id number] 11/15/2020 07:13:54 AM [facility] Name Value Range Interpretation Code Description Data Lou rce(s) Supporting Document(s) Bicarbonate [Moles/volume] in Serum 19 mmol/L 22-29 L [facility] Chloride [Moles/volume] in Serum or Plasma 102 mmol/L 98-107 [facility] Creatinine [Mass/volume] in Serum or Plasma 0.69 mg/dL 0.70-1.20 [facility] [place] Glucose [Mass/volume] in Serum or Plasma 112 mg/dL 70-140 [facility] Potassium [Moles/volume] in Serum or Plasma 3.9 mmol/L 3.4-5.1 [facility] Sodium [Moles/volume] in Serum or Plasma 130 mmol/L 136-145 [facility] [place] Urea nitrogen [Mass/volume] in Serum or Plasma 13 mg/dL 6-20 [facility] Anion gap 3 in Serum or Plasma 9 mmol/L 8-15 [facility] Osmolality of Serum or Plasma by calculation 270 mosm/kg 275-300 [facility] [place] Creatinine/Urea nitrogen [Mass Ratio] in Serum or Plasma 19 [facility] Calcium [Mass/volume] in Serum or Plasma 8.2 mg/dL 8.6-10.0 [facility] [place] Glomerular filtration rate/1.73 sq M pre dicted among non-blacks [Volume Rate/Area] in Serum or Plasma by Creatinine-based formula (MDRD) >6 0 [facility] Glomerular filtration rate/1.73 sq M pre dicted among blacks [Volume Rate/Area] in Serum or Plasma by Creatinine-based formula (MDRD) >60 [facility] ID Date Data Source [id number] 11/15/2020 07:47:52 AM EDT [facility] Name Value Range Interpretation Code Description Data Lou e(s) Supporting Document(s) Leukocytes [#/volume] in Blood by Automated count 7.5 10*3/uL 4-10 [facility] Erythrocytes [#/volume] in Blood by Automated count 3.25 10*6/uL 4.6- 6.1 [facility] [place] Hemoglobin [Mass/volume] in Blood 8.5 g/dL 13.5-18 L [facility] Hematocrit [Volume Fraction] of Blood by Automated count 26.2 % 4 1-53 [facility] [place] Erythrocyte mean corpuscular volume [Entitic volume] by Auto mated count 80.6 fL 80-96 [facility] Erythrocyte mean corpuscular hemoglobin [Entitic mass] by Automated count 26.2 pg 27-33 L [facility] Erythrocyte mean corpuscular hemoglobin concentration [Mass/volume] by Automated count 32.5 g/dL 32.0-36.0 [facility] Erythrocyte distribution width [Ratio] by Automated count 18.5 % 11.5-14.5 H [facility] Platelets [#/volume] in Blood by Automated count 123 10*3/uL 150-400 L [facility] Confirmed Differential cell count method - Blood [facility] Neutrophils/100 leukocytes in Blood by Automated count 72 % [facility] Lymphocytes/100 leukocytes in Blood by Automated count 10 % [facility] Monocytes/100 leukocytes in Blood by Automated count 13 % [facility] Eosinophils/100 leukocytes in Blood by Automated count 4 % [facility] Basophils/100 leukocytes in Blood by Automated count 1 % [facility] Neutrophils [#/volume] in Blood by Automated count 5.47 10*3/uL 1.8-7 .0 [facility] Lymphocytes [#/volume] in Blood by Automated count 0.72 10*3/uL 1.2-4 .0 L [facility] Monocytes [#/volume] in Blood by Automated count 0.97 10*3/uL 0-0.8 H [facility] Eosinophils [#/volume] in Blood by Automated count 0.32 10*3/uL 0-0.5 [facility] Basophils [#/volume] in Blood by Automated count 0.05 10*3/uL 0-0.2 [facility] Nucleated erythrocytes/100 leukocytes [Ratio] in Blood by Automated count 0 /100{WBCs} 0-0 [facility] ID Date Data Source [id number] 11/15/2020 12:33:23 PM [facility] Name Value Range Interpretation Code Description Data Lou rce(s) Supporting Document(s) Phosphate [Mass/volume] in Serum or Plasma 2.4 mg/dL 2.5-4.5 [facility] [place] ID Date Data Source [id number] 11/14/2020 11:16:15 PM [facility] Name Value Range Interpretation Code Description Data Lou rce(s) Supporting Document(s) [facility] AOWTYg3sHfDWMtHd16/EVGgtWUCbt1HzHQpyJVd6JCasBZDwS9CsOVO2fU4hUPV2AEnSRtXsCzRgBfN4 lbm PyMjnWNvLfYDKmSqkYUmWsNXmyVgrrrYAtMA4YbHB5GCStZ64mKDKxDSQuH5KvXNA1BrA+Sr8SCSXocO ImET9MOhtT3N6sJswINb8+3b3IWB25yxmOmcz9hOUVXvUyHZN2On1qz4BR2R9cNK+R6a93X4/DpirDL6 1qsmKNbHPvvg8rpo0dd1kPSKQ+68pqlFTDvaD14+zP XGVP0O22+9/UvJvnzrrN/2SdyAOuEztR+UD+p6e/kuBBvlj4pQM0sGqfPl+4LVWtp73NXcZI53Qmf+ri d6U9L2/RunBPvW5GGKG3Fqx3NnI8tGEgpUXEwxlHo3cZx+EWj1SoqQ8A9mNliYDWsKYBmtAq0kPGgryo sjcCtDuU4vkVRARpgJLsjXHURA4Kfsed0DvBmhV9z5 E+eO4n6SG+oc40cpLoo3UtKHpuapXDcw6pNibmiM1W4EQXWu3UOswUdTLncC3kdAHHy0G+gtHq7Mi+zN A27jGeld8qbWo0EblX4zhiDJvzm2US+3yulek6yV0iN+eQ8F04Z5lPkbq23hdKwPJxluoD66B73WvStf GhOlaCp3UBELwRiPAuf+pjDeXUAozv442y2HBketdj yzJbnPfZTdpbsjhUGKulOs/+fBaD7kU+ESa2cPKgCoaYC/QFBS4zs+/fhy7pQXAMZHr9ULmCF3wHljhZ F4qiJmIAihvHWdybrSAAvRt9sEWyIJuigKXx8BAL6awjio6bo9ZwA3ui6YVaLg7GpReoyRH/HWrLLkrQ iJqjm3tvORe9JxvD6iQxOSWzF85/UuJ0o6ELKQhIh1 NLWfodLTBSmk1wY6G63Xj9LmCtsBh3XyaKdekolgLLvFk6ggDL5Bp8A1GTWCZrI7QXqj1dbhWzYj+Mars [file] CiHky3CqcjKNF5KLWnCrFvVIHhCjUqZW8zAMHPDu7+FShhtODmiGafEFNHVkT4QML0PXcoUUJDVl3N ID Date Data Source [id number] 11/15/2020 12:29:07 AM [facility] Name Value Range Interpretation Code Description Data Lou rce(s) Supporting Document(s) Leukocytes [#/volume] in Blood by Automated count 7.5 10*3/uL 4-10 [facility] Erythrocytes [#/volume] in Blood by Automated count 3.11 10*6/uL 4.6- 6.1 L [facility] Hemoglobin [Mass/volume] in Blood 8.0 g/dL 13.5-18 L [facility] Hematocrit [Volume Fraction] of Blood by Automated count 24.9 % 4 1-53 L [facility] Erythrocyte mean corpuscular volume [Entitic volume] by Auto mated count 80.0 fL 80-96 [facility] Erythrocyte mean corpuscular hemoglobin [Entitic mass] by Automated count 25.8 pg 27-33 L [facility] Erythrocyte mean corpuscular hemoglobin concentration [Mass/volume] by Automated count 32.3 g/dL 32.0-[facility] width [Ratio] by Automated count 18.7 % 11.5-14.5 H [facility] Platelets [#/volume] in Blood by Automated count 120 10*3/uL 150-400 L [facility] Confirmed Differential cell count method - Blood [facility] Neutrophils/100 leukocytes in Blood by Automated count 71 % [facility] Lymphocytes/100 leukocytes in Blood by Automated count 11 % [facility] Monocytes/100 leukocytes in Blood by Automated count 13 % [facility] Eosinophils/100 leukocytes in Blood by Automated count 4 % [facility] Basophils/100 leukocytes in Blood by Automated count 1 % [facility] Neutrophils [#/volume] in Blood by Automated count 5.34 10*3/uL 1.8-7 .0 [facility] Lymphocytes [#/volume] in Blood by Automated count 0.83 10*3/uL 1.2-[address] [facility] [place] Monocytes [#/volume] in Blood by Automated count 0.96 10*3/uL 0-0.8 H [facility] Eosinophils [#/volume] in Blood by Automated count 0.32 10*3/uL 0-0.5 [facility] Basophils [#/volume] in Blood by Automated count 0.06 10*3/uL 0-0.2 [facility] Nucleated erythrocytes/100 leukocytes [Ratio] in Blood by Automated count 0 /100{WBCs} 0-0 [facility] ID Date Data Source [id number] 11/14/2020 03:50:27 PM EDT [facility] Name Value Range Interpretation Code Description Data Lou rce(s) Supporting Document(s) History and Physical [facility] CNHCUg1fTfTVDmPw97/SIYjaMHZqb9LcYAbgDFb7FBlyZAKgW9WbKJH9lQ6fFSP7SSqDGuNmRmRlJsB7 lbm [file] AgICAgICAgICAgICAgICAgICAgICAgICAgICAgICAgICAgICAgICAgICAgICAgICAgICAgICAgICAgIC AgICAgICAgICAgICAgICAgICAgICAgICAgICAgICAgICAgICAgICANCiAgICAgICAgICAgICAgICAgIC AgICAgICAgICAgICAgICAgICAgICAgICAgICAgICAg ICAgICAgICAgICAgICAgICAgICAgICAgICAgICAgICAgICAgICAgICAgICAgICAgICANCiAgICAgICAg ICAgICAgICAgICAgICAgICAgICAgICAgICAgICAgICAgICAgICAgICAgICAgICAgICAgICAgICAgICAg ICAgICAgICAgICAgICAgICAgICAgICAgICAgICAgIC ANCiAgICAgICAgICAgICAgICAgICAgICAgICAgICAgICAgICAgICAgICAgICAgICAgICAgICAgICAgIC AgICAgICAgICAgICAgICAgICAgICAgICAgICAgICAgICAgICAgICAgICANCiAgICAgICAgICAgICAgIC AgICAgICAgICAgICAgICAgICAgICAgICAgICAgICAg ICAgICAgICAgICAgICAgICAgICAgICAgICAgICAgICAgICAgICAgICAgICAgICAgICAgICANCiAgICAg ICAgICAgICAgICAgICAgICAgICAgICAgICAgICAgICAgICAgICAgICAgICAgICAgICAgICAgICAgICAg ICAgICAgICAgICAgICAgICAgICAgICAgICAgICAgIC AgICANCiAgICAgICAgICAgICAgICAgICAgICAgICAgICAgICAgICAgICAgICAgICAgICAgICAgICAgIC AgICAgICAgICAgICAgICAgICAgICAgICAgICAgICAgICAgICAgICAgICAgICANCiAgICAgICAgICAgIC AgICAgICAgICAgICAgICAgICAgICAgICAgICAgICAg ICAgICAgICAgICAgICAgICAgICAgICAgICAgICAgICAgICAgICAgICAgICAgICAgICAgICAgICANCiAg ICAgICAgICAgICAgICAgICAgICAgICAgICAgICAgICAgICAgICAgICAgICAgICAgICAgICAgICAgICAg ICAgICAgICAgICAgICAgICAgICAgICAgICAgICAgIC AgICAgICANCiAgICAgICAgICAgICAgICAgICAgICAgICAgICAgICAgICAgICAgICAgICAgICAgICAgIC AgICAgICAgICAgICAgICAgICAgICAgICAgICAgICAgICAgICAgICAgICAgICAgICANCjw/tDKlP5kmyH KqliI2R5akBh7RPw1EGH2ip0HxFYKeCVsrznIxIokK TuQbBXWvSdgIVgv4EWoqRP4QaXTdJ9HxF4ReCCutYN5IMYSvDXBkqBIiLJYzXEOyAmI8IRKiYXxyXD1J xEXuJFkxWRPkMYRdQqBlRSRiXWMfEFJnDIOnLISBJIUbTFWpZpDsXSxnWA1Ze0DwaUO2HHz+Hs9CKM2n g1PoNJmbIkGbAV8vog9PNJqFVwCfW9UfuxB8UXE9CK RwXf5AMVOtJNOgqAJrEyWzYMXBYnScU2KqcV42VMXVHi6+QCptjvMfOydUGfI0HWKpm2QnLNo8JG7TYS MvQQu3sJFnQCXIQEG2UYz7nlVdGIBjfKFaNKEGFUTurSF5LmN8ScRjAqZyJAM9NJKmFC9qLWkqSF1CVA [id number]jAU6UUvMs I6IxzeSiyTJiBbTjEPSIGh6+TQsiwmJjVscHSmJ7HYQox7ZbZJl3CD9KCMDyICakVB9XUUEdhV1vGCqv LL2WHpCyMGDoVQQJZyBpG32pcCNzURe6M2NpCfRvHXYeNmbsYRGfGVwsQmQhSLKyXhGjMPbrCY6+ID4+ IIhcTI7IPCelzsDxGNJiLp1VONEqSREpPV5aDWCrTC IgQ5V4rMioKLQNLhVdK9qorerzKW7tCHVfL956cMisxiHsBRC1BSHsTd8XCTVcYIV9ZFXrkDKoUgIiPH NOOGvfWZ4CrJIsVYT0vM6aCVnsNDWzXNEnU0qLHgVlrVmoDV90mYwvpeKyzQItYFc+Mj3KPP5pb0ByCF a4vsWpBTfxHLE5YDpdDYGdHZDeWPOeMVO3FAW8EPDR YvYjEXOiXKJjTXdcLRJvIMFwfc7TDZYkMFEaWZZ0LPHmZOYpUUPyIEunXIPtDDP3RzVpMCArBRDzML8U OtBaSSJtVPDcYJqgVXHuBHVqll4MVMIbKGLkJZX1GZOvFRAzJIXyTTdiTRLvZPR1WAewSAMxKXLmTN2Z LpQvYFDcBYd0ELLsINQvBPTdcj5JCZQrDAQhEte3BQ CfAGJyXEMqROixUGRkCSIxDTR0QNZaNQDvDN1WGkRsCXCwWDElPtUhSMVyQUUojt8YIDVoXADcYsgkBd JwSVEgFVXbWQstBVCiRQYdAFM1RUBjKQKrCA9QKhXnXBCxGDHzTPXeVAZhWDJxow4KCQGdWXCwZVX9Nz SjZUErBPCePHmcURVrDIQ2DCW8GTWeOWQuNY5DUeKg WJEyQXR6CEPrMYOsJZFxgm9HZKCxAFYtDphgGnYoHFTnCZCrBRczOORgLNL4JDe0KMMyDCKaKO4RRaCs UCXwOGenBJmeZPQsBKSuyr8ANLVmLYUmLXQ0WaUeCBYvXBYsLKlbYDKhLZI3OqH1NSDhKUJzWU3PZqGa IOEfTZo5CblkWCYxWDDfuq2ZGIRrHCQbTZHqVTVvNP MxZFPzYAqpLAIkVNYlYRe8ZTIoERHkWP7SJsJpWWSyXaY5QFEhOJScLQLhey7FBYSzYUHbZPi7IHHxVE EnMDWsORlaFACgYCOgXqReHDClTAElJT6RCrNbSNBlVxS0AqjlOMHdDZPfyo1VPPDsDMVzOsg3UtIwJL WjRYHfCPmyDESnXFRzGUZ2BORqIVIbNN5WFrOeWSEr BcLwZwGnRUZxOBBtsp0GFAGpWVMiMHImQgLqFZXsTVXzYOfjDDKeHSZ6Agw9SUKwOAXuJA2MQtHaTEUk TjJ3LwWcCKWhQIKqrn1JLVFzWZBsMPDgGMIaMGRkELQrLSpkELPlWQZ2OMm9BUUjUJXlMJ3EVxZtWCXg ThH6ZWIgQOWkCFLrzp4LMUIaWLHlOeE0GOJrLEUbRA VqLJz3mwSvsZYuFFg0YZ4HZ0DoeiFyPcfPQl3Ri002NBS2TRBxBv5BR5scHq8yHTJwFFWOQl6LBGv9Vc VfVDK9HHM1BoCdPiI2HlW5IclvI6KhMrBkUeB1WBM+VZriSoX2KrEqZXhzCSYsRCI3HYdlFaU9RcEeSp WhULTzEZ4uNJJCYl5+TDcxhPArqFagCOYYSbC6QUI7MXfbLJZYLa0J ID Date Data Source [id number] 11/14/2020 05:33:49 PM EDT [facility] Hospital Name Value Range Interpretation Code Description Data Lou rce(s) Supporting Document(s) Albumin [Mass/volume] in Serum or Plasma by Bromocresol green (BCG) dye binding method 3.2 g/dL 3.5[facility] Bil[facility].total [Mass/volume] in Serum or Plasma 2.1 mg/dL <1.2 [facility] Calcium [Mass/volume] in Serum or Plasma 7.9 mg/dL 8.6-10.0 L [facility] Chloride [Moles/volume] in Serum or Plasma 100 mmol/L 98-107 [facility] Creatinine [Mass/volume] in Serum or Plasma 0.64 mg/dL 0.70-1.20 L [facility] Glucose [Mass/volume] in Serum or Plasma 94 mg/dL 70-140 [facility] Alkaline phosphatase [Enzymatic activity/volume] in Serum or Plasma 123 U/L 40-129 [facility] Potassium [Moles/volume] in Serum or Plasma 3.7 mmol/L 3.4-5.1 [facility] Protein [Mass/volume] in Serum or Plasma 5.8 g/dL 6.4-8.3 L [facility] Sodium [Moles/volume] in Serum or Plasma 130 mmol/L 136-145 L [facility] Aspartate aminotransferase [Enzymatic activity/volume] in Serum or Plasma 325 U/L <40 [facility] Urea nitrogen [Mass/volume] in Serum or Plasma 13 mg/dL 6-20 [facility] Osmolality of Serum or Plasma by calculation 269 mosm/kg 275-300 [facility] Creatinine/Urea nitrogen [Mass Ratio] in Serum or Plasma 21 [facility] Bicarbonate [Moles/volume] in Serum 21 mmol/L 22-29 L [facility] Alanine aminotransferase [Enzymatic activity/volume] in Seru m or Plasma 127 U/L <41 [facility] Anion gap 3 in Serum or Plasma 9 mmol/L 8-15 [facility] Glomerular filtration rate/1.73 sq M pre dicted among non-blacks [Volume Rate/Area] in Serum or Plasma by Creatinine-based formula (MDRD) >6 0 [facility] Glomerular filtration rate/1.73 sq M pre dicted among blacks [Volume Rate/Area] in Serum or Plasma by Creatinine-based formula (MDRD) >60 [facility] ID Date Data Source [id number] 11/14/2020 05:33:49 PM [facility] Name Value Range Interpretation Code Description Data Lou rce(s) Supporting Document(s) Magnesium [Mass/volume] in Serum or Plasma 2.5 mg/dL 1.6-2.6 [facility] ID Date Data Source [id number] 11/14/2020 05:33:49 PM [facility] Value Range Interpretation Code Description Data Lou rce(s) Supporting Document(s) Phosphate [Mass/volume] in Serum or Plasma 1.3 mg/dL 2.5-4.5 [facility] [place] ID Date Data Source [id number] 11/14/2020 06:06:06 PM [facility] Value Range Interpretation Code Description Data Lou rce(s) Supporting Document(s) Leukocytes [#/volume] in Blood by Automated count 7.8 10*3/uL 4-10 [facility] Erythrocytes [#/volume] in Blood by Automated count 3.15 10*6/uL 4.6- 6.1 [facility] [place] Hemoglobin [Mass/volume] in Blood 8.3 g/dL 13.5-18 L [facility] Hematocrit [Volume Fraction] of Blood by Automated count 25.4 % 4 1-53 [facility] [place] Erythrocyte mean corpuscular volume [Entitic volume] by Auto mated count 80.6 fL 80-96 [facility] Erythrocyte mean corpuscular hemoglobin [Entitic mass] by Automated count 26.4 pg 27-33 L [facility] Erythrocyte mean corpuscular hemoglobin concentration [Mass/volume] by Automated count 32.8 g/dL 32.0-36.[facility] distribution width [Ratio] by Automated count 18.5 % 11.5-14.5 [facility] Platelets [#/volume] in Blood by Automated count 116 10*3/uL 150-400 [facility] Confirmed Differential cell count method - Blood [facility] Neutrophils/100 leukocytes in Blood by Automated count 76 % [facility] Lymphocytes/100 leukocytes in Blood by Automated count 8 % [facility] Monocytes/100 leukocytes in Blood by Automated count 13 % [facility] Eosinophils/100 leukocytes in Blood by Automated count 2 % [facility] Basophils/100 leukocytes in Blood by Automated count 1 % [facility] Neutrophils [#/volume] in Blood by Automated count 5.95 10*3/uL 1.8-7 .0 [facility] Lymphocytes [#/volume] in Blood by Automated count 0.63 10*3/uL 1.2-4 .0 L [facility] Monocytes [#/volume] in Blood by Automated count 1.05 10*3/uL 0-0.8 [facility] Eosinophils [#/volume] in Blood by Automated count 0.19 10*3/uL 0-0.5 [facility] Basophils [#/volume] in Blood by Automated count 0.04 10*3/uL 0-0.2 [facility] Nucleated erythrocytes/100 leukocytes [Ratio] in Blood by Automated count 0 /100{WBCs} 0-0 [facility] ID Date Data Source [id number] [facility] Interpretation Code Description Data Lou rce(s) Supporting Document(s) Ammonia [Moles/volume] in Plasma 86 umol/L 16-60 [facility] ID Date Data Source [id number] 11/14/2020 08:19:36 AM [facility] Name Value Range Interpretation Code Description Data Lou rce(s) Supporting Document(s) Bicarbonate [Moles/volume] in Serum 21 mmol/L 22-29 L [facility] Chloride [Moles/volume] in Serum or Plasma 99 mmol/L 98-107 [facility] Confirmed Creatinine [Mass/volume] in Serum or Plasma 0.65 mg/dL 0.70-1.20 L [facility] Glucose [Mass/volume] in Serum or Plasma 97 mg/dL 70-140 [facility] Potassium [Moles/volume] in Serum or Plasma 3.0 mmol/L 3.4-5.1 [facility] [place] Confirmed Sodium [Moles/volume] in Serum or Plasma 130 mmol/L 136-145 [facility] Confirmed Urea nitrogen [Mass/volume] in Serum or Plasma 15 mg/dL 6-20 [facility] Anion gap 3 in Serum or Plasma 11 mmol/L 8-15 [facility] Confirmed Osmolality of Serum or Plasma by calculation 271 mosm/kg 275-300 [facility] Confirmed Creatinine/Urea nitrogen [Mass Ratio] in Serum or Plasma 22 [facility] Calcium [Mass/volume] in Serum or Plasma 7.8 mg/dL 8.6-10.0 [facility] [place] Glomerular filtration rate/1.73 sq M pre dicted among non-blacks [Volume Rate/Area] in Serum or Plasma by Creatinine-based formula (MDRD) >6 0 [facility] Glomerular filtration rate/1.73 sq M pre dicted among blacks [Volume Rate/Area] in Serum or Plasma by Creatinine-based formula (MDRD) >60 [facility] ID Date Data Source [id number] 11/14/2020 08:31:17 AM EDT [facility] Hospital Name Value Range Interpretation Code Description Data Lou rce(s) Supporting Document(s) Leukocytes [#/volume] in Blood by Automated count 6.9 10*3/uL 4-10 [facility] Erythrocytes [#/volume] in Blood by Automated count 2.97 10*6/uL 4.6- 6.1 [facility] [place] Hemoglobin [Mass/volume] in Blood 7.9 g/dL 13.5-18 [facility] [place] Hematocrit [Volume Fraction] of Blood by Automated count 23.7 % 4 1-53 [facility] [place] Erythrocyte mean corpuscular volume [Entitic volume] by Auto mated count 79.8 fL 80-96 L [facility] Erythrocyte mean corpuscular hemoglobin [Entitic mass] by Automated count 26.5 pg 27-33 [facility] [place] Erythrocyte mean corpuscular hemoglobin concentration [Mass/volume] by Automated count 33.2 g/dL 32.0-36.[facility] E[facility]throcyte distribution width [Ratio] by Automated count 18.9 % 11.5-14.5 H [facility] Platelets [#/volume] in Blood by Automated count 99 10*3/uL 150-400 [facility] Confirmed Differential cell count method - Blood [facility] Neutrophils/100 leukocytes in Blood by Automated count 77 % [facility] Lymphocytes/100 leukocytes in Blood by Automated count 7 % [facility] Monocytes/100 leukocytes in Blood by Automated count 12 % [facility] Eosinophils/100 leukocytes in Blood by Automated count 3 % [facility] Basophils/100 leukocytes in Blood by Automated count 1 % [facility] Neutrophils [#/volume] in Blood by Automated count 5.45 10*3/uL 1.8-7 .0 [facility] Lymphocytes [#/volume] in Blood by Automated count 0.47 10*3/uL 1.2-4 .0 L [facility] Monocytes [#/volume] in Blood by Automated count 0.80 10*3/uL 0-0.8 [facility] Eosinophils [#/volume] in Blood by Automated count 0.18 10*3/uL 0-0.5 [facility] Basophils [#/volume] in Blood by Automated count 0.03 10*3/uL 0-0.2 [facility] Nucleated erythrocytes/100 leukocytes [Ratio] in Blood by Automated count 0 /100{WBCs} 0-0 [facility] ID Date Data Source [id number] 11/14/2020 11:09:27 AM [facility] Value Range Interpretation Code Description Data Lou rce(s) Supporting Document(s) Magnesium [Mass/volume] in Serum or Plasma 2.6 mg/dL 1.6-2.6 [facility] ID Date Data Source [id number] 11/14/2020 11:09:27 AM [facility] Value Range Interpretation Code Description Data Lou rce(s) Supporting Document(s) Phosphate [Mass/volume] in Serum or Plasma 1.6 mg/dL 2.5-4.5 [facility] [place] ID Date Data Source [id number] 11/13/2020 11:52:58 PM [facility] Value Range Interpretation Code Description Data Lou rce(s) Supporting Document(s) ABO and Rh group [Type] in Blood [facility] Blood bank comment [facility] ID Date Data Source [id number] 11/13/2020 09:59:28 PM EDT [facility] Name Value Range Interpretation Code Description Data Lou rce(s) Supporting Document(s) Sodium [Moles/volume] in Blood 132 mmol/L 136-145 [facility] Potassium [Moles/volume] in Blood 3.1 mmol/L 3.4-5.1 [facility] [place] Chloride [Moles/volume] in Blood 97 mmol/L 98-107 [facility] [place] Carbon dioxide, total [Moles/volume] in Blood 21 mmol/L 22-29 [facility] Calcium.ionized [Moles/volume] in Blood 1.19 mmol/L 1.13-1.32 [facility] Glucose [Mass/volume] in Blood 115 mg/dL 70-140 [facility] Urea nitrogen [Mass/volume] in Blood 15 mg/dL 6-20 [facility] Creatinine [Mass/volume] in Blood 0.7 mg/dL 0.70-1.20 [facility] Hematocrit [Volume Fraction] of Blood 22 % 41-53 [facility] [place] Hemoglobin [Mass/volume] in Blood by calculation 7.5 g/dL 13.5-18.0 [facility] [place] ID Date Data Source [id number] 11/13/2020 09:59:57 PM EDT [facility] Name Value Range Interpretation Code Description Data Lou rce(s) Supporting Document(s) Leukocytes [#/volume] in Blood by Automated count 7.0 10*3/uL 4-10 [facility] Erythrocytes [#/volume] in Blood by Automated count 2.58 10*6/uL 4.6- 6.1 [facility] [place] Hemoglobin [Mass/volume] in Blood 7.0 g/dL 13.5-18 [facility] [place] Hematocrit [Volume Fraction] of Blood by Automated count 20.6 % 4 1-53 [facility] Called to and read back by Zeny cintron FACILITIES TECHNICIAN 2152 MA 147 Erythrocyte mean corpuscular volume [Entitic volume] by Auto mated count 79.5 fL 80-96 L [facility] Erythrocyte mean corpuscular hemoglobin [Entitic mass] by Automated count 27.1 pg 27-33 [facility] Erythrocyte mean corpuscular hemoglobin concentration [Mass/volume] by Automated count 34.0 g/dL 32.0-36.[facility] distribution width [Ratio] by Automated count 19.9 % 11.5-14.5 [facility] Platelets [#/volume] in Blood by Automated count 102 10*3/uL 150-400 [facility] Differential cell count method - Blood [facility] Neutrophils/100 leukocytes in Blood by Automated count 78 % [facility] Lymphocytes/100 leukocytes in Blood by Automated count 7 % [facility] Monocytes/100 leukocytes in Blood by Automated count 13 % [facility] Eosinophils/100 leukocytes in Blood by Automated count 1 % [facility] Basophils/100 leukocytes in Blood by Automated count 1 % [facility] Neutrophils [#/volume] in Blood by Automated count 5.50 10*3/uL 1.8-7 .0 [facility] Lymphocytes [#/volume] in Blood by Automated count 0.47 10*3/uL 1.2-4 .0 L [facility] Monocytes [#/volume] in Blood by Automated count 0.89 10*3/uL 0-0.8 H [facility] Eosinophils [#/volume] in Blood by Automated count 0.09 10*3/uL 0-0.5 [facility] Basophils [#/volume] in Blood by Automated count 0.04 10*3/uL 0-0.2 [facility] Nucleated erythrocytes/100 leukocytes [Ratio] in Blood by Automated count 0 /100{WBCs} 0-0 [facility] ID Date Data Source [id number] 11/13/2020 10:08:20 PM [facility] Value Range Interpretation Code Description Data Lou rce(s) Supporting Document(s) Prothrombin time (PT) 16.6 s 12.5-14.9 H [facility] INR in Platelet poor plasma by Coagulation assay 1.32 [facility] Routine intensity oral anticoagulation I NR is typically 2.0-3.0. Target INR must be clinically individualized. ID Date Data Source [id number] 11/13/2020 10:17:51 PM [facility] Value Range Interpretation Code Description Data Lou rce(s) Supporting Document(s) Lipase [Enzymatic activity/volume] in Serum or Plasma 44 U/L 13-6 0 [facility] ID Date Data Source [id number] 11/13/2020 10:17:51 PM [facility] Value Range Interpretation Code Description Data Lou rce(s) Supporting Document(s) Albumin [Mass/volume] in Serum or Plasma by Bromocresol green (BCG) dye binding method 3.0 g/dL 3.5-5.[facility] Bilirubin.total [Mass/volume] in Serum or Plasma 1.7 mg/dL <1.2 [facility] Calcium [Mass/volume] in Serum or Plasma 7.8 mg/dL 8.6-10.0 L [facility] Chloride [Moles/volume] in Serum or Plasma 97 mmol/L 98-107 L [facility] Creatinine [Mass/volume] in Serum or Plasma 0.66 mg/dL 0.70-1.20 L [facility] Glucose [Mass/volume] in Serum or Plasma 115 mg/dL 70-140 [facility] Alkaline phosphatase [Enzymatic activity/volume] in Serum or Plasma 127 U/L 40-129 [facility] Potassium [Moles/volume] in Serum or Plasma 3.1 mmol/L 3.4-5.1 L [facility] Protein [Mass/volume] in Serum or Plasma 5.5 g/dL 6.4-8.3 L [facility] Sodium [Moles/volume] in Serum or Plasma 128 mmol/L 136-145 [facility] [place] Aspartate aminotransferase [Enzymatic activity/volume] in Serum or Plasma 189 U/L <40 H [facility] Urea nitrogen [Mass/volume] in Serum or Plasma 16 mg/dL 6-20 [facility] Osmolality of Serum or Plasma by calculation 269 mosm/kg 275-300 [facility] [place] Creatinine/Urea nitrogen [Mass Ratio] in Serum or Plasma 24 [facility] Bicarbonate [Moles/volume] in Serum 22 mmol/L 22-29 [facility] Alanine aminotransferase [Enzymatic activity/volume] in Seru m or Plasma 74 U/L <41 H [facility] Anion gap 3 in Serum or Plasma 9 mmol/L 8-15 [facility] Glomerular filtration rate/1.73 sq M pre dicted among non-blacks [Volume Rate/Area] in Serum or Plasma by Creatinine-based formula (MDRD) >6 0 [facility] Glomerular filtration rate/1.73 sq M pre dicted among blacks [Volume Rate/Area] in Serum or Plasma by Creatinine-based formula (MDRD) >60 [facility] ID Date Data Source [id number] 11/16/2020 07:33:03 AM EDT [facility] Name Value Range Interpretation Code Description Data Lou rce(s) Supporting Document(s) ABO and Rh group [Type] in Blood [facility] Blood group antibody screen [Presence] in Serum or Plasma [facility] Performed at [facility], Raquel brody Geeta, [id number] ID Date Data Source [id number] 11/13/2020 03:31:00 PM EDT [facility] Name Value Range Interpretation Code Description Data Lou rce(s) Supporting Document(s) SARS coronavirus 2 RNA [Presence] in Res piratory specimen by TOYA with probe detection NEGATIVE [facility] This lab was ordered by [facility] a nd reported by [facility]. Procedure Social History Code Duration Value Status Description Data Source(s ) Alcohol intake 11/16/2020 12:00:00 AM EDT Current drinker of al cohol (finding) completed Current drinker of alcohol (finding) [facility] Tobacco use and exposure 11/14/2020 12:00:00 AM EDT Smokeless to bacco non-user completed Smokeless tobacco non-user [facility] Cigarette pack-years 11/14/2020 12:00:00 AM EDT UNK completed [facility] Cigarettes smoked current (pack per day) - Reported 11/15/19 12:00:00 AM EDT UNK completed 0.5 [facility] Smoking 11/14/2020 12:00:00 AM EDT Smokes tobacco daily comple ashley Smokes tobacco daily [facility] Vital Signs ID Date Data Source UNK Name Value Range Interpretation Code Description Data Source(s) Diastolic blood pressure 78 mm[Hg] 78 mm[Hg] [facility] ([facility]) Body weight 2480 [oz_av] 2480 [oz_av] [facility] ([facility]) Body height 65 [in_i] 65 [in_i] [facility] ([facility]) Body mass index (BMI) [Ratio] 25.8 kg/m2 25.8 k g/m2 [place] ([facility]) Systolic blood pressure 121 mm[Hg] 121 mm[Hg] Venkata ROBBINS ([facility]) ID Date Data Source [id number] 12/14/2020 04:10:11 PM EDT [facility] Name Value Range Interpretation Code Description Data Source(s) WEIGHT RECORDED 151.3 lb 151.3 lb [facility] Body height Measured 66 in 66 in [facility] TRANSFER FROM [facility] ID Date Data Source [id number] 12/01/2020 11:10:43 AM [facility] Name Value Range Interpretation Code Description Data Source(s) TRANSFER FROM [facility] Patient Treatment Plan of Care Planned Activity Planned Date Details Description Data Source (s) Lisinopril 5 MG Oral Tablet 12/12/2020 12:00:00 AM [facility] Thiamine 100 MG Oral Tablet 12/12/2020 12:00:00 AM [facility] Acetaminophen 325 MG Oral Tablet 12/12/2020 12:00:00 AM [facility] Acetaminophen 325 MG Oral Tablet 12/10/2020 04:46:26 PM [facility] Folic Acid 1 MG Oral Tablet 2020 12:00:00 AM [facility] Vitamin B 12 0.25 MG Oral Tablet 2020 12:00:00 AM [facility] pantoprazole 40 MG Delayed Release Oral Tablet 11/17/2020 12:00:00 AM [facility] Lisinopril 30 MG Oral Tablet [facility] duloxetine 60 MG Delayed Release Oral Capsule SUKI ([facility]) Clindamycin 300 MG Oral Capsule [facility]KI ([facility])
[2021-04-24 21:01] VITALS: BP 141/82
[2021-04-24 21:01] LABS: MEAN CORPUSCULAR HEMOGLOBIN 22.6 pg (27.0-33.0); MEAN CORPUSCULAR HGB CONC 27.3 g/dl (32.0-36.5); MEAN CORPUSCULAR VOLUME 82.6 fl (80.0-96.0); PLATELET COUNT, AUTOMATED 163 10^3/uL (150-450); RED BLOOD COUNT 2.35 10^6/uL (4.30-6.10); WHITE BLOOD COUNT 4.1 10^3/uL (4.0-10.0)
[2021-04-24] MEDS ORDERED: PANTOPRAZOLE 40MG VIAL (C9113 PER 1) IV ONE (21:05)
[2021-04-24 21:07] LABS: HEMATOCRIT 19.4 % (42.0-52.0)
--- NOTE | 2021-04-24 21:08 | REPVR ---
PROCEDURE INFORMATION: Exam: XR Complete Acute Abdomen Series Including Chest Exam date and time: 04/24/2021 8:06 PM Age: 40 years old Clinical indication: Abdominal pain TECHNIQUE: Imaging protocol: XR complete acute abdomen series, including 2 or more views of the abdomen and a single view chest. COMPARISON: CT ABD W/O FOLL BY WITH REEDA 04/05/2021 6:25 PM FINDINGS: Lungs: Normal. No consolidation. Pleural spaces: Normal. No pleural effusions. No pneumothorax. Heart/Mediastinum: Normal. No cardiomegaly. Gastrointestinal tract: Normal. No bowel dilation. Intraperitoneal space: Normal. No free air. Bones/joints: Normal. No acute fracture. Soft tissues: Normal. IMPRESSION: No acute findings. Electronically signed by: Mikel Hopkins On 04/24/2021 21:08:35 PM
[2021-04-24 21:11] LABS: HEMOGLOBIN 5.3 g/dl (13.5-17.5)
[2021-04-24 21:12] LABS: INR 1.33; PROTHROMBIN TIME 16.9 SECONDS (12.7-14.5)
[2021-04-24 21:13] LABS: PARTIAL THROMBOPLASTIN TIME 35.1 SECONDS (25.9-37.0)
[2021-04-24 21:27] LABS: CK-MB VALUE MASS < 1.0 NG/ML (<3.6); CPK CREATINE PHOSPHOKINASE 54 U/L (39-308); MB/CK RELATIVE INDEX 1.85 (< OR =4)
[2021-04-24 21:31] LABS: ALBUMIN 2.8 GM/DL (3.2-5.2); ALT/SGPT 28 U/L (12-78); ATYPICAL LYMPH 1 % (0-5); BASOPHILS 1 % (0-1); BILIRUBIN,DIRECT 0.2 MG/DL (0.0-0.2); BILIRUBIN,TOTAL 0.5 MG/DL (0.2-1.0); BLOOD UREA NITROGEN 5 MG/DL (7-18); CALCIUM LEVEL 7.8 MG/DL (8.5-10.1); CARBON DIOXIDE LEVEL 28 MEQ/L (21-32); CHLORIDE LEVEL 110 MEQ/L (98-107); EOSINOPHILS 2 % (0-3); GLOMERULAR FILTRATION RATE > 60.0 (>60); GLUCOSE, FASTING 99 MG/DL (70-100); LIPASE 345 U/L (73-393); LYMPHOCYTES 14 % (16-44); METAMYELOCYTES 1 % (0-0); MONOCYTES 6 % (0-5); NEUTROPHILS 75 % (28-66); POTASSIUM SERUM 3.6 MEQ/L (3.5-5.1); SODIUM LEVEL 145 MEQ/L (136-145); TOTAL PROTEIN 6.4 GM/DL (6.4-8.2)
[2021-04-24 21:32] LABS: ANISOCYTOSIS 3+; HYPOCHROMASIA 1+; MICROCYTOSIS 1+; PLATELET ESTIMATE NORMAL (NORMAL)
[2021-04-24 21:33] LABS: TEAR DROP CELLS 1+
[2021-04-24 22:04] LABS: ETHYL ALCOHOL (ETHANOL) 0.361 % (0.000-0.010)
[2021-04-25] MEDS ORDERED: THIA100T22 PO (13:58)
[2021-04-25] MEDS ORDERED: FERR325T19 PO (13:58)
== END 2021-04-24 21:54 | disposition left against medical advice (07) ==
LOC: M ED 19:08
DX: F10.10 Alcohol abuse, uncomplicated (principal); D64.9 Anemia, unspecified; Z53.9 Procedure and treatment not carried out, unspecified reason; Z87.19 Personal history of other diseases of the digestive system; Z79.899 Other long term (current) drug therapy; Z88.0 Allergy status to penicillin; Z88.6 Allergy status to analgesic agent; Z88.8 Allergy status to other drugs, medicaments and biological substances

== ENCOUNTER 2021-04-25 10:56 | Inpatient (IN) | payer MEDICAID, OTHER ==
[2021-04-25] VITALS (9 sets, daily range): BP systolic 117–142; BP diastolic 59–87
[~2021-04-25] VITALS: Ht 165.1 cm; Wt 62.5 kg
[~2021-04-25 10:56] MED LIST changes: +FOLIC ACID 1 MG TAB PO SCH; +MULTIVITAMINS/MINERALS THERAP 1 TAB PO SCH; +THIAMINE 100 MG TAB PO SCH
--- OUTSIDE RECORDS SUMMARY | 2021-04-25 11:07 | CCD ---
Author Author [facility] Organization [facility] Address Unknown Phone Unavailable Care Team Providers Care Water Conservation Specialist Name Role Phone MANUELA RANDLE DORCAS RPA-C Unavailable Unavailable RANDLE, MANUELA DORCAS RPA-C Unavailable Unavailable RANDLE, MANUELA DORCAS RPA-C Unavailable Unavailable RANDLE, MANUELA DORCAS RPA-C Unavailable Unavailable RANDLE, MANUELA DORCAS RPA-C Unavailable Unavailable RANDLE, MANUELA DORCAS RPA-C Unavailable Unavailable RANDLE, MANUELA DORCAS RPA-C Unavailable Unavailable RANDLE, MANUELA DORCAS RPA-C Unavailable Unavailable RANDLE, MANUELA DORCSA RPA-C Unavailable Unavailable RANDLE, MANUELA DORCAS RPA-C [...] Unavailable Unavailable Bethanie Walls MD Unavailable Unavailable Bethnaie Walls MD Unavailable Unavailable Bethanie Walls MD [...] Unavailable Alexe MD, Jaxon Unavailable JAXON PETERSEN [id number] Unavailable Unavailable GHASEMI, LAMONT MD Unavailable Unavailable [...] is protected by Article 27-F of the [facility] Public Health law. If you continue you may have access to information: Regarding HIV / AIDS; Provided by facilities licensed or operated by the [facility] Office of Mental Health; or Provided by the [facility] Office for People With Developmental Disabilities. If such information is present, then the following [facility] mandated warning applies: This information has been [...] law may result in a fine or [place] health care [place] sentence or both. A general authorization for the release of medical or other information is NOT sufficient authorization for further disc losure. Allergies and Adverse Reactions Type Description Substance Reaction Status Data Source(s ) Propensity to adverse reactions PENICILLINS Penicillin [facility] Propensity to adverse reactions NAPROXEN NAPROXEN [facility] Propensity to adverse reactions IBUPROFEN Ibuprofen [facility] Propensity to adverse reactions DIPHENHYDRAMINE DIPHENHYDRAMINE [facility] Drug allergy AMOXICILLIN-POT CLAVULANATE AMOXICILLIN-POT CLAVULANATE [facility] Allergy to substance Allergy to substance Naproxen [facility] ([facility]) Allergy to substance Allergy to substance Ibuprofen [facility] ([facility]) Allergy to substance Allergy to substance Diphenhydramine Hcl [facility] ([facility]) Family History Family Member Name Family Member Gender Family Member Status Date o f Status Description Data Source(s) Unknown Unknown Problem [facility] ([facility], [facility]) Encounters Encounter Providers Location Date Indications Data Source(s ) Outpatient Admitter: RYAN MORRISONReferrer: RYAN MORRISON 04/07/2021 12:00:00 AM EST 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 03/23/2021 12:00:00 AM [facility] Inpatient Attender: Antonio Lee antonieta: LAMONT GRAY MDAdmitter: LAMONT GRAY MDReferrer: LAMONT GRAY MD A-12/08/2020 12:00: 00 AM EDT - 12/12/2020 01:58:00 PM [facility] Patient discharged. Dorcas Randle, [facility]: [address] [place] [address], [facility] [address], [place] [address], Ph. Attender: DORCAS ISAACS [facility] Medical 11/25/2020 12:00:00 AM EDT [facility] ([facility]) Outpatient Attender: SOOLINDSAY RAMACHANDRAN . [id number] 11/17/2020 03:42:22 PM EDT [facility] Inpatient Attender: RON MILLER MDAttender: Jaxon Petersen MDAttender: JAXON PETERSEN [id number]: Bethanie Walls MDAttender: DONAL HUBBARD MDAttender: ALEX ZENDEJAS MDAdmitter: Bethanie Walls MDReferrer: DONAL HUBBARD MD [id number] 11/13/2020 12:00:00 AM EDT - 11/17/2020 05:29:00 PM EDT [facility] Patient discharged. Immunizations Vaccine Date Status Description Data Source(s) SARS-COV-2 (COVID-19) vaccine, UNSPECIFIED 10/30/2020 12:00:00 A M EDT completed 10/30/2020 [facility] ([facility]) COVID-19 VACCINE Todd 10/30/2020 12:00:00 AM EDT completed COSIIS Vaccine Series Complete: YESThis Data wa s Submitted to [facility] Via [employer]. Medications Medication Brand Name Start Date Product Form Dose Route Admi nistrative Instructions Pharmacy Instructions Status Indications Reaction Description Data Source(s) Acetaminophen 325 MG Oral Tablet Acetaminophen 325 MG Oral T ablet 12/12/2020 12:00:00 AM EDT 650 mg Oral active Take 2 tablets by mouth every 8 (eight) hours as needed for up to 10 days [facility] Thiamine 100 MG Oral Tablet Thiamine HCl 100 MG Oral T ablet (B-1) Thiamine HCl 100 MG Oral Tablet (B-1) 12/12/2020 12:00:00 AM EDT 100 mg Oral active [facility] Lis[facility] 5 MG Oral Tablet Lisinopril 5 MG Oral Table t (PRINIVIL,ZESTRIL) Lisinopril 5 MG Oral Tablet (PRINIVIL,ZESTRIL) 12/12/2020 12:00:00 AM EDT 5 mg Oral active Take 1 tablet by mouth [facility] pantoprazole 40 MG Delayed Release Oral Tablet pantoprazole (PROTONIX) EC tablet 40 mg pantoprazole (PROTONIX) EC tablet 40 mg 12/11/2020 07:30:00 AM E DT 40 mg Oral active 40 mg, Ora l, Before Breakfast, First dose (after last modification) on Sun12/11/20 at 0730, For 5 doses
Do not crush or chew
[facility] Medication administered onsite Acetaminophen 325 [...] mg from all sources in 24 hours.
[facility] Medication administered onsite Oxycodone Hydrochloride [...] only) require Pain Service consultation and approval.
[facility] Medication administered onsite fentaNYL (SUBLIMAZE) (PF) injection 9739-3406-71 12/10/2020 12:18:14 PM EDT completed Code/Trauma Medicati on, Starting on Sun12/10/20 at 1218 [facility] Medication administered onsite 2 ML Midazolam 1 MG/ML Injection midazolam (PF) (VERSE D) injection midazolam (PF) (VERSED) injection 12/10/2020 12:10:25 PM EDT aborted Code/Trauma Medication, Starting on Sun12/10/20 at 1210 [facility] Medication administered onsite fentaNYL (SUBLIMAZE) (PF) injection 7461-3213-52 12/10/2020 12:10:02 PM EDT aborted Code/Trauma Medicati on, Starting on Sun12/10/20 at 1210 [facility] Medication administered onsite 2 ML Midazolam 1 MG/ML Injection midazolam (PF) (VERSE D) injection midazolam (PF) (VERSED) injection 12/10/2020 12:09:08 PM EDT aborted Code/Trauma Medication, Starting on Sun12/10/20 at 1209 [facility] Medication administered onsite fentaNYL (SUBLIMAZE) (PF) injection 5290-0971-80 12/10/2020 12:08:42 PM EDT aborted Code/Trauma Medicati on, Starting on Sun12/10/20 at 1208 [facility] Medication administered onsite phytonadione (VITAMIN K1) 1 mg/mL oral solution 10 mg 12/09/2020 07:35:00 PM EDT 10 mg Oral completed 10 mg, Oral, Daily Standard, First dose on Sun12/09/20 at 1945, For 3 days [facility] Medication administered onsite NaCl infusion 0.9 % 8118-1723-16 12/09/2020 07:00:00 PM EDT Intravenous aborted at 100 mL/hr, Intrav enous, Continuous, Starting on Sun12/09/20 at 1900, For 24 hours [facility] Medication administered onsite Bisacodyl 5 MG Delayed Release Oral Tablet bisacodyl ( DULCOLAX) EC tablet 20 mg bisacodyl (DULCOLAX) EC tablet 20 mg 12/09/2020 05:45:00 PM EDT 20 mg Oral completed 20 mg, Oral, Onc e, On Sun12/09/20 at 1745, For 1 dose
Do not crush or chew
[facility] Medication administered onsite pantoprazole 40 MG Delayed Release Oral Tablet pantoprazole (PROTONIX) EC tablet 40 mg pantoprazole (PROTONIX) EC tablet 40 mg 12/09/2020 05:30:00 PM E DT 40 mg Oral aborted 40 mg, Ora l, Two times daily before breakfast and dinner, First dose on Sun12/09/20 at 1730, For 30 days
Do not crush or chew
[facility] Medication administered onsite 2 ML Midazolam 1 MG/ML Injection midazolam (PF) (VERSE D) injection midazolam (PF) (VERSED) injection 12/09/2020 05:04:35 PM EDT completed Code/Trauma Medication, Starting on Carol 12/09/[address] [place] [address] Medication administered onsite fentaNYL (SUBLIMAZE) (PF) injection [id number] 12/09/2020 05:04:11 PM EDT completed Code/Trauma Medicati on, Starting on Carol 12/09/20 at [facility] Medication administered onsite 2 ML Midazolam 1 MG/ML Injection midazolam (PF) (VERSE D) injection midazolam (PF) (VERSED) injection 12/09/2020 05:02:04 PM EDT completed Code/Trauma Medication, Starting on Carol 12/09/20 at [facility] Medication administered onsite fentaNYL (SUBLIMAZE) (PF) injection [id number] 12/09/2020 05:01:47 PM EDT completed Code/Trauma Medicati on, Starting on Carol 12/09/[address] [place] [address] Medication administered onsite NaCl infusion 0.9 % 9370-5228-39 12/09/2020 03:00:00 PM EDT Intravenous aborted at 100 mL/hr, Intrav enous, Continuous, Starting on Carol 12/09/20 at 1500, For 24 hours [facility] Medication administered onsite Oxycodone Hydrochloride [...] only) require Pain Service consultation and approval.
[facility] Medication administered onsite Escitalopram 10 MG Oral Tablet escitalopram (LEXAPRO) tablet 20 mg escitalopram (LEXAPRO) tablet 20 mg 12/09/2020 09:00:00 AM EDT 20 mg Oral active 20 mg, Oral, Daily Standard, First dose on Carol 12/09/20 at 0900, For 30 days [facility] Medication administered onsite multivitamin tablet 1 tablet [id number] 12/09/2020 09:00:00 AM EDT 1 {tbl} Oral active 1 tablet, Oral , Daily Standard, First dose on Sun12/09/20 at 0900, For 30 days [facility] Medication administered onsite Ceftriaxone 1000 MG Injection cefTRIAXone (ROCEPHIN) i nfusion 1 g (premix) cefTRIAXone (ROCEPHIN) infusion 1 g (premix) 12/09/2020 09:00:00 AM EDT 1 g Intravenous aborted 1 g, Intraven ous, at 100 mL/hr, Daily Standard, First dose on Sun12/09/20 at 0900, For 4 doses
Discouraged Uses: Empiric treatment of post-surgical meningitis (ceftazidime preferred)
[facility] Medication administered onsite Oxycodone Hydrochloride [...] only) require Pain Service consultation and approval.
[facility] Medication administered onsite NaCl infusion 0.9 % 0196-2247-25 12/09/2020 07:45:00 AM EDT Intravenous aborted at 200 mL/hr, Intrav enous, Continuous, Starting on Sun12/09/20 at 0745, For 12 hours [facility] Medication administered onsite pantoprazole 4 MG/ML Injectable Solution pantoprazole (PROTONIX) injection 80 mg pantoprazole (PROTONIX) injection 80 mg 12/08/2020 11:45:00 PM EDT 80 mg Intravenous completed 80 mg, Intrav enous, Once, On Sun12/08/20 at 2345, For 1 dose [facility] Medication administered onsite pantoprazole (PROTONIX) 0.4 mg/mL in sodium chloride 0.9 % 2 50 mL infusion 12/08/2020 11:45:00 PM EDT 8 mg/h Intravenous aborted 8 mg/hr (20 mL/hr), Intravenous, at 20 mL/hr, Continuous, Starting on Sun12/08/20 at 2345, For 30 days
Indication: Active GI bleed [facility] Medication administered onsite 1 ML Octreotide 0.05 MG/ML Prefilled Syr moreno octreotide (SANDOSTATIN) injection 50 mcg octreotide (SANDOSTATIN) injection 50 mcg 12/08/2020 11:45:00 PM EDT 50 ug Intravenous completed 50 mcg, Intravenous, Once, On Sun12/08/20 at 2345, For 1 dose [facility] Medication administered onsite octreotide (SANDOSTATIN) 5 mcg/mL in sodium chloride 0.9 % 2 50 mL infusion 12/08/2020 11:45:00 PM EDT 50 ug/h Intravenous aborted 50 mcg/hr (10 mL/hr), Intravenous, at 10 mL/hr, Continuous, Starting on Sun12/08/20 at 2345, For 30 days [facility] Medication administered onsite thiamine (B-1) 500 mg in sodium chloride 0.9 % 50 mL IVPB 12/08/2020 11:45:00 PM EDT 500 mg Intravenous active 500 mg, Intravenous, Administer over 30 Minutes, Daily Standard, First dose on Sun12/08/20 at 2345, For 30 days [facility] Medication administered onsite folic acid 1 mg in sodium chloride 0.9 % 50 mL IVPB 12/08/2020 11:45:00 PM EDT 1 mg Intravenous active 1 mg , Intravenous, Administer over 30 Minutes, Daily Standard, First dose on Sun12/08/20 at 2345, For 30 days [facility] Medication administered onsite NaCl infusion 0.9 % [id number] 12/08/2020 11:30:00 PM EDT Intravenous aborted at 200 mL/hr, Intrav enous, Continuous, Starting on Sun12/08/20 at 2330, For 12 hours [facility] Medication administered onsite 50 ML [...] 16 mEq (2 g) q1h x 3
[facility] Medication administered onsite Folic Acid 1 MG Oral Tablet Folic Acid 1 MG Oral Table t (FOLVITE) Folic Acid 1 MG Oral Tablet (FOLVITE) 2020 12:00:00 AM EDT 1 mg Oral active Take 1 tablet by mouth daily [facility] Vitamin B 12 0.25 MG Oral Tablet Cyanocobalamin 250 MC G Oral Tablet Cyanocobalamin 250 MCG Oral Tablet 2020 12:00:00 AM EDT 250 ug Oral active Take 1 tablet by mouth daily [facility] pantoprazole 40 MG Delayed Release Oral Tablet Pantoprazole Sodium 40 MG Oral Tablet Delayed Release (Protonix) Pantoprazole Sodium 40 MG Oral Tablet De layed Release (Protonix) 11/17/2020 12:00:00 AM EDT 40 mg Oral active Take 1 tablet by mouth daily [facility] Clindamycin 300 MG Oral Capsule clindamy bharti HCl 300 mg capsule TAKE ONE CAPSULE BY MOUTH EVERY SIX HOURS UNTIL GONE clindamycin HCl 300 mg capsule TAKE ONE CAPSULE BY MOUTH EVERY SIX HOURS UNTIL GONE completed clindamycin 300 MG Oral Capsule [facility] ([facility]) duloxetine 60 MG Delayed Release Oral Ca psule duloxetine 60 mg capsule,delayed release TAKE ONE CAPSULE BY MOUTH ONCE DAILY duloxetine 60 mg capsule,delayed release TAKE ONE CAPSULE BY MOUTH ONCE DAILY completed duloxetine 60 MG Delayed Release Oral Capsule [facility] ([facility]) Lisinopril 30 MG Oral Tablet Lisinopril 30 MG Oral Tab let (ZESTRIL) Lisinopril 30 MG Oral Tablet (ZESTRIL) 30 mg Oral aborted Take 30 mg by mouth daily [facility] Insurance Providers Payer name Policy type / Coverage type Policy ID Covered republican ID Covered republican's relationship to see Policy See Plan Information Medicaid S [id number] S [id number] Medicaid S [id number] S [id number] [facility]LY [facility] COMMUNITY PLAN [facility] [id number] SP [id number] Managed Care - Community Plan [facility] [id number] S [id number] Medicaid S [id number] S [id number] [employer] COMMUNITY PLAN MCDHMO [id number] SP [id number] Managed Care - [facility] Community Plan P [id number] S [id number] [facility] [id number] SP [id number] Managed Care - Community Plan [facility] P [id number] S [id number] Managed Care - [facility] Community Plan P [id number] S [id number] [facility] I [id number] Self [id number] UH I [id number] Self [id number] UH I [id number] Self [id number] MEDICAID [id number] SP [id number] MEDICAID M [id number] S [id number] SELF PAY ONLY [id number] SP [id number] SELF PAY ONLY [id number] SP [id number] UN COMMUNITY PLAN MCDO [id number] SP [id number] Managed Care BCBS S [id number] S [id number] SELF PAY UNAVAILABLE SP [facility] [id number] SP [id number] HMO BLUE [id number] SP [id number] D Managed Care [facility] O UNAVAILABLE S UNAVAILABLE [facility](MCA[facility]) O [id number] S [id number] FORMERLY [facility] COMMUNITY PLAN MCDO [id number] SP [id number] ANSI-Medicaid [id number] ANSI-Medicaid [id number] ANSI-Medicaid [id number] ANSI-Medicaid [id number] [facility] Health Maintenance Organization ([facility]) [id number] Self [id number] Self Pay P None S None Managed Care Nadir P [id number] S [id number] [facility] Maintenance [facility] ([facility]) [id number] Self [id number] [facility] [id number] Problems, Conditions, and Diagnoses Code Display Name Description Problem Type Effective Dates Data Source(s) R59.0 Localized enlarged lymph nodes Localized enlarged lymp h nodes Diagnosis 04/07/2021 10:17:00 AM [facility] D50.0 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) Diagnosis 04/07/2021 10:17:00 AM [facility] [id number] Fitting procedure Fitting Procedure Problem 03/04 06:13:25 PM EDT [facility]) Surgeries/Procedures Procedure Description Date Indications Data Source(s) HEMATOPATHOLOGY <td>HEMATOPATHOLOGY</td><td> Routine</td><td>04/07/2021 12:00 AM EST</td><td></td><td> </td> 04/07/2021 12:00:00 AM [facility] BLOOD COUNT COMPLETE AUTOMATED <td>CBC</td><td>Timed</ td><td>12/12/2020 5:28 AM EDT</td><td></td><td> </td> 12/12/2020 05:28:00 AM [facility] PHOSPHORUS INORGANIC <td>PHOSPHORUS LEVEL</td><td >Routine</td><td>12/12/2020 5:28 AM EDT</td><td></td><td> </td> 12/12/2020 05:28:00 AM [facility] MAGNESIUM <td>MAGNESIUM LEVEL</td><td> Routine</td><td>12/12/2020 5:28 AM EDT</td><td></td><td> </td> 12/12/2020 05:28:00 AM [facility] BASIC METABOLIC PANEL CALCIUM TOTAL <td>BASIC METABOLI C PANEL</td><td>Routine</td><td>12/12/2020 5:28 AM EDT</td><td></td><td> </td> 12/12/2020 05:28:00 AM [facility] BLOOD COUNT COMPLETE AUTOMATED <td>CBC</td><td>Timed</ td><td>12/11/2020 3:52 PM EDT</td><td></td><td> </td> 12/11/2020 03:52:00 PM [facility] BLOOD COUNT COMPLETE AUTOMATED <td>CBC</td><td>Timed</ td><td>12/11/2020 6:09 AM EDT</td><td></td><td> </td> 12/11/2020 06:09:00 AM [facility] PHOSPHORUS INORGANIC <td>PHOSPHORUS LEVEL</td><td >Routine</td><td>12/11/2020 6:09 AM EDT</td><td></td><td> </td> 12/11/2020 06:09:00 AM [facility] MAGNESIUM <td>MAGNESIUM LEVEL</td><td> Routine</td><td>12/11/2020 6:09 AM EDT</td><td></td><td> </td> 12/11/2020 06:09:00 AM [facility] BASIC METABOLIC PANEL CALCIUM TOTAL <td>BASIC METABOLI C PANEL</td><td>Routine</td><td>12/11/2020 6:09 AM EDT</td><td></td><td> </td> 12/11/2020 06:09:00 AM [facility] BLOOD COUNT COMPLETE AUTOMATED <td>CBC</td><td>Timed</ td><td>12/10/2020 5:47 PM EDT</td><td></td><td> </td> 12/10/2020 05:47:00 PM [facility] BASIC METABOLIC PANEL CALCIUM TOTAL <td>BASIC METABOLI C PANEL</td><td>Routine</td><td>12/10/2020 1:07 PM EDT</td><td></td><td> </td> 12/10/2020 01:07:00 PM [facility] BLOOD COUNT COMPLETE AUTOMATED <td>CBC</td><td>Timed</ td><td>12/10/2020 10:13 AM EDT</td><td></td><td> </td> 12/10/2020 10:13:00 AM [facility] CALCIUM IONIZED <td>CALCIUM, IONIZED</td><td >Routine</td><td>12/10/2020 10:13 AM EDT</td><td></td><td> </td> 12/10/2020 10:13:00 AM [facility] PHOSPHORUS INORGANIC <td>PHOSPHORUS LEVEL</td><td >Routine</td><td>12/10/2020 5:09 AM EDT</td><td></td><td> </td> 12/10/2020 05:09:00 AM [facility] MAGNESIUM <td>MAGNESIUM LEVEL</td><td> Routine</td><td>12/10/2020 5:09 AM EDT</td><td></td><td> </td> 12/10/2020 05:09:00 AM [facility] COMPREHENSIVE METABOLIC PANEL <td>COMPREHENSIVE METABO LIC PANEL</td><td>Routine</td><td>12/10/2020 5:09 AM EDT</td><td></td><td> </td> 12/10/2020 05:09:00 AM [facility] BLOOD COUNT COMPLETE AUTOMATED <td>CBC</td><td>Timed</ td><td>12/10/2020 12:59 AM EDT</td><td></td><td> </td> 12/10/2020 12:59:00 AM [facility] Screening colonoscopy (procedure) <td>COLONOSCOPY</td> <td></td><td>12/10/2020 12:00 AM EDT</td><td></td><td></td> 12/10/2020 12:00:00 AM [facility] UPPER GI ENDOSCOPY; DX, W/WO SPECIMEN COLLECTION, BRUS RADHA/WASHING (SEP PROC) <td>UPPER GI ENDOSCOPY; DX, W/WO SPECIMEN COLLECTION, BRUSHING/WASHING (SEP PROC)</td><td></td><td>12/09/2020 5:00 PM EDT</td><td> Upper GI bleed</td><td></td> 12/09/2020 05:00:00 PM EDT - 12/09/2020 05:15:00 PM [facility] BLOOD COUNT COMPLETE AUTOMATED <td>CBC</td><td>Timed</ td><td>12/09/2020 4:06 PM EDT</td><td></td><td> </td> 12/09/2020 04:06:00 PM [facility] GLUCOSE QUANTITATIVE BLOOD XCPT REAGENT STRIP <td>POCT GLUCOSE, DOCKED</td><td>Routine</td><td>12/09/2020 12:35 PM EDT</td><td></td><td> </td> 12/09/2020 12:35:00 PM [facility] TRANSFUSE RBC (ONCE) <td>TRANSFUSE RBC (ONCE)</td ><td>STAT</td><td>12/09/2020 11:00 AM EDT</td><td></td><td></td> 12/09/2020 11:00:50 AM [facility] CALCIUM IONIZED <td>CALCIUM, IONIZED</td><td >Routine</td><td>12/09/2020 10:15 AM EDT</td><td></td><td> </td> 12/09/2020 10:15:00 AM [facility] ULTRASOUND ABDOMINAL REAL TIME W/IMAGE LIMITED <td>US ABDOMEN LIMITED [id number]</td><td>Routine</td><td>12/09/2020 10:10 AM EDT</td><td></td><td> </td> 12/09/2020 10:10:00 AM [facility] CULTURE BACTERIAL BLOOD AEROBIC W/ID ISOLATES <td>BLOO D CULTURE</td><td>Routine</td><td>12/09/2020 6:04 AM EDT</td><td></td><td></td> 12/09/2020 06:04:00 AM [facility] BLOOD COUNT COMPLETE AUTOMATED <td>CBC</td><td>Timed</ td><td>12/09/2020 6:04 AM EDT</td><td></td><td> </td> 12/09/2020 06:04:00 AM [facility] PHOSPHORUS INORGANIC <td>PHOSPHORUS LEVEL</td><td >Routine</td><td>12/09/2020 6:04 AM EDT</td><td></td><td> </td> 12/09/2020 06:04:00 AM [facility] MAGNESIUM <td>MAGNESIUM LEVEL</td><td> Routine</td><td>12/09/2020 6:04 AM EDT</td><td></td><td> </td> 12/09/2020 06:04:00 AM [facility] COMPREHENSIVE METABOLIC PANEL <td>COMPREHENSIVE METABO LIC PANEL</td><td>Routine</td><td>12/09/2020 6:04 AM EDT</td><td></td><td> </td> 12/09/2020 06:04:00 AM [facility] TRANSFUSE RBC (ONCE) <td>TRANSFUSE RBC (ONCE)</td ><td>STAT</td><td>12/09/2020 5:45 AM EDT</td><td></td><td></td> 12/09/2020 05:45:38 AM [facility] URNLS DIP STICK/TABLET REAGENT AUTO MICROSCOPY <td>URI NALYSIS WITH REFLEX URINE CULTURE</td><td>STAT</td><td>12/09/2020 2:02 AM EDT</td><td></td><td> </td> 12/09/2020 02:02:00 AM [facility] CULTURE BACTERIAL BLOOD AEROBIC W/ID ISOLATES <td>BLOO D CULTURE</td><td>Routine</td><td>12/09/2020 12:07 AM EDT</td><td></td><td></td> 12/09/2020 12:07:00 AM [facility] UPPER GI ENDOSCOPY <td>UPPER GI ENDOSCOPY</td>< td></td><td>12/09/2020 12:00 AM EDT</td><td></td><td></td> 12/09/2020 12:00:00 AM EDT [facility] COVID-19 PCR <td>COVID-19 PCR</td><td>Rou jason</td><td>12/08/2020 11:59 PM EDT</td><td></td><td> </td> 12/08/2020 11:59:00 PM [facility] THROMBOPLASTIN TIME PARTIAL PLASMA/WHOLE BLOOD <td>PAR TIAL THROMBOPLASTIN TIME (PTT)</td><td>STAT</td><td>12/08/2020 11:59 PM EDT</td><td></td><td> </td> 12/08/2020 11:59:00 PM [facility] PROTHROMBIN TIME <td>PROTIME INR</td><td>STAT </td><td>12/08/2020 11:59 PM EDT</td><td></td><td> </td> 12/08/2020 11:59:00 PM [facility] BLOOD COUNT COMPLETE AUTOMATED <td>CBC</td><td>Timed</ td><td>12/08/2020 11:59 PM EDT</td><td></td><td> </td> 12/08/2020 11:59:00 PM [facility] BLOOD TYPING ABO <td>TYPE AND SCREEN</td><td> STAT</td><td>12/08/2020 11:59 PM EDT</td><td></td><td> </td> 12/08/2020 11:59:00 [facility] [facility] LIPASE <td>LIPASE LEVEL</td><td>STA T</td><td>12/08/2020 11:59 PM EDT</td><td></td><td> </td> 12/08/2020 11:59:00 PM [facility] COMPREHENSIVE METABOLIC PANEL <td>COMPREHENSIVE METABO LIC PANEL</td><td>Routine</td><td>12/08/2020 11:59 PM EDT</td><td></td><td> </td> 12/08/2020 11:59:00 PM [facility] Results ID Date Data Source [id number] 04/08/2021 03:50:00 PM [facility] Hematopathology ReportName: CASIE MORINMRN: [id number] Number: [id number] Date: 04/07/2021 00:00Received Date: 04/08/2021 12:47Physician(s): RYAN MORRISON MD ADJAPONG, OPOKU, MDSpecimen(s) ReceivedA: Fine Needle Aspiration, Flow Cytometry; RECEIVED FNA OF RIGHT NECKLYMPH NODE [facility] HistoryEnlarged lymph nodesTEST REQUESTED/PERFORMED: Flow Cytometry Analysis DiagnosisFlow cytometry of right neck lymph node, FNA: No evidence of non-Hodgkinlymphoma. As the sample shows significant cell degeneration, the flowresults might not be manufacturer's representative of the sampled tissue.Yoav alcantar M.D.;Resident PathologistElectronically Signed By Lay Gaitan M.D. Attending Pathologist 04/08/2021 15:50:33The attending pathologist named above attests that he/she has personallyreviewed the relevant preparation(s) for the specimen(s) and rendered thefinal diagnosis. ProceduresFlow Cytometry Date Ordered:04/08/2021 Status: Signed Out04/08/2021 InterpretationA cytospin shows mostly degenerating cells.Lymphoma [place] Panel The following markers were assayed: CD45 (gate), CD2, CD3, CD4, CD5, CD7,CD8, CD10, CD19, CD20, [place], and Lambda.Events :[id number] NOTE: Routinely a minimum of 50,000 events are collectedin each panel tube. Due to sample cellularity and/or processing thisnumber was not achievable for this sample.No viability performed due to low cellularity.Flow Cytometry Differential (CD45/SSC)Lymphocyte [place]: 2%CD45 dim [place]: 0%Monocyte [place]: 0%Granulocyte [place]: 8%Nucleated/Erythroid [place]: 13%The lymphocyte gate showsB-Cells (CD19): 8%[place]/Lambda Ratio: 2.7T-Cells (CD3): 86%CD4/CD8 Ratio: 6.9Results: (expressed as % of lymphocyte gate)B-cell Markers: CD19 = 8, CD19/CD5 = 1Gated on CD19+ cells: CD19/[place] = 3, CD19/Lambda = 1, CD19/CD10 = [...] were developed and theirperformance characteristics determined by [facility] Pathology department.They have not been cleared or approved by the US Food and DrugAdministration. The FDA has determined that such clearance or approval isnot necessary. Name Value Range Interpretation Code Description Data Lou rce(s) Supporting Document(s) ID Date Data Source [id number] 04/04/2021 05:06:00 PM EST [facility] Name Value Range Interpretation Code Description Data [facility]s) SARS coronavirus 2 RNA [Presence] in Res piratory specimen by TOYA with probe detection NEGATIVE [facility] This lab was ordered by [facility] a nd reported by [facility]. ID Date Data Source [id number] 12/12/2020 05:24:[address] [facility] Name Value Range Interpretation Code Description Data [facility] Supporting Document(s) Discharge Summary [facility] [id number]/JVLedCNBlz4CkGBduGNh0VLwfNPZlQ3SvJFS3xA3bLXY8WXaVBhYuQrGuLzZ6 lbm [file] Maria Guadalupe/guialwB5YE23n9xvyDnHucXst4QyMTGY0il/iG [file] BjOjSgYoZCt1FbCtCZ1BSe1AAgF8GEU1mAQwOr7ONuYtLLRJMwGmBD6RFAt= ID Date Data Source [id number] 12/12/2020 06:08:11 AM EDT [facility] Name Value Range Interpretation Code Description Data Lou rce(s) Supporting Document(s) Leukocytes [#/volume] in Blood by Automated count 5.5 10*3/uL 4-10 [facility] Erythrocytes [#/volume] in Blood by Automated count 2.87 10*6/uL 4.6- 6.1 L [facility] Hemoglobin [Mass/volume] in Blood 7.8 g/dL 13.5-18 L [facility] Hematocrit [Volume Fraction] of Blood by Automated count 24.3 % 4 1-53 L [facility] Erythrocyte mean corpuscular volume [Entitic volume] by Auto mated count 84.8 fL 80-96 [facility] Erythrocyte mean corpuscular hemoglobin [Entitic mass] by Automated count 27.3 pg 27-33 [facility] Erythrocyte mean corpuscular hemoglobin concentration [Mass/volume] by Automated count 32.2 g/dL 32.0-36.0 [facility] E[facility] distribution width [Ratio] by Automated count 17.3 % 11.5-14.5 H [facility] Platelets [#/volume] in Blood by Automated count 112 10*3/uL 150-400 L [facility] ID Date Data Source [id number] 12/12/2020 06:27:20 AM [facility] Name Value Range Interpretation Code Description Data Lou rce(s) Supporting Document(s) Bicarbonate [Moles/volume] in Serum 23 mmol/L 22-29 [facility] Chloride [Moles/volume] in Serum or Plasma 102 mmol/L 98-107 [facility] Creatinine [Mass/volume] in Serum or Plasma 0.55 mg/dL 0.70-1.20 L [facility] Glucose [Mass/volume] in Serum or Plasma 102 mg/dL 70-140 [facility] Potassium [Moles/volume] in Serum or Plasma 3.5 mmol/L 3.4-5.1 [facility] Sodium [Moles/volume] in Serum or Plasma 133 mmol/L 136-145 L [facility] Urea nitrogen [Mass/volume] in Serum or Plasma 5 mg/dL 6-20 [facility] Anion gap 3 in Serum or Plasma 9 mmol/L 8-15 [facility] Osmolality of Serum or Plasma by calculation 274 mosm/kg 275-300 L [facility] Creatinine/Urea nitrogen [Mass Ratio] in Serum or Plasma 9 [facility] Calcium [Mass/volume] in Serum or Plasma 8.0 mg/dL 8.6-10.0 [facility] Glomerular filtration rate/1.73 sq M pre dicted among non-blacks [Volume Rate/Area] in Serum or Plasma by Creatinine-based formula (MDRD) >6 0 [facility] Glomerular filtration rate/1.73 sq M pre dicted among blacks [Volume Rate/Area] in Serum or Plasma by Creatinine-based formula (MDRD) >60 [facility] ID Date Data Source [id number] 12/12/2020 06:27:20 AM [facility] Value Range Interpretation Code Description Data Lou rce(s) Supporting Document(s) Phosphate [Mass/volume] in Serum or Plasma 3.1 mg/dL 2.5-4.5 [facility] ID Date Data Source [id number] 12/12/2020 06:27:20 AM [facility] Value Range Interpretation Code Description Data Lou rce(s) Supporting Document(s) Magnesium [Mass/volume] in Serum or Plasma 2.0 mg/dL 1.6-2.6 [facility] ID Date Data Source [id number] 12/11/2020 04:51:04 PM [facility] Name Value Range Interpretation Code Description Data Lou rce(s) Supporting Document(s) Leukocytes [#/volume] in Blood by Automated count 5.3 10*3/uL 4-10 [facility] Erythrocytes [#/volume] in Blood by Automated count 2.88 10*6/uL 4.6- 6.1 L [facility] Hemoglobin [Mass/volume] in Blood 8.2 g/dL 13.5-18 L [facility] Hematocrit [Volume Fraction] of Blood by Automated count 24.5 % 4 1-53 L [facility] Erythrocyte mean corpuscular volume [Entitic volume] by Auto mated count 84.9 fL 80-96 [facility] Erythrocyte mean corpuscular hemoglobin [Entitic mass] by Automated count 28.5 pg 27-33 [facility] Erythrocyte mean corpuscular hemoglobin concentration [Mass/volume] by Automated count 33.5 g/dL 32.0-36.0 [facility] Erythrocyte distribution width [Ratio] by Automated count 16.9 % 11.5-14.5 H [facility] Platelets [#/volume] in Blood by Automated count 105 10*3/uL 150-400 L [facility] ID Date Data Source [id number] 12/11/2020 03:28:44 PM [facility] Name Value Range Interpretation Code Description Data Lou rce(s) Supporting Document(s) History and Physical [facility] [id number]/TQTqmXKLfy1CuWXgaLPo4UQykFODdL6DxPSW0gB3uDQM5XWpTJtAmCmMxRgC3 [facility] [file] [id number]fnJQBZOv8Y ID Date Data Source [id number] 12/11/2020 06:57:52 AM [facility] Name Value Range Interpretation Code Description Data Lou rce(s) Supporting Document(s) Leukocytes [#/volume] in Blood by Automated count 4.6 10*3/uL 4-10 [facility] Erythrocytes [#/volume] in Blood by Automated count 2.74 10*6/uL 4.6- 6.1 L [facility] Hemoglobin [Mass/volume] in Blood 7.7 g/dL 13.5-18 L [facility] Hematocrit [Volume Fraction] of Blood by Automated count 23.0 % 4 1-53 L [facility] Erythrocyte mean corpuscular volume [Entitic volume] by Auto mated count 84.2 fL 80-96 [facility] Erythrocyte mean corpuscular hemoglobin [Entitic mass] by Automated count 28.1 pg 27-33 [facility] Erythrocyte mean corpuscular hemoglobin concentration [Mass/volume] by Automated count 33.3 g/dL 32.0-36.0 [facility] Erythrocyte distribution width [Ratio] by Automated count 17.0 % 11.5-14.5 H [facility] Platelets [#/volume] in Blood by Automated count 105 10*3/uL 150-400 L [facility] ID Date Data Source [id number] 12/11/2020 08:31:44 AM [facility] Value Range Interpretation Code Description Data Lou rce(s) Supporting Document(s) Magnesium [Mass/volume] in Serum or Plasma 2.1 mg/dL 1.6-2.6 [facility] ID Date Data Source [id number] 12/11/2020 08:31:44 AM [facility] Value Range Interpretation Code Description Data Lou rce(s) Supporting Document(s) Bicarbonate [Moles/volume] in Serum 22 mmol/L 22-29 [facility] Chloride [Moles/volume] in Serum or Plasma 101 mmol/L 98-107 [facility] Creatinine [Mass/volume] in Serum or Plasma 0.52 mg/dL 0.70-1.20 L [facility] Glucose [Mass/volume] in Serum or Plasma 91 mg/dL 70-140 [facility] Potassium [Moles/volume] in Serum or Plasma 3.5 mmol/L 3.4-5.1 [facility] Sodium [Moles/volume] in Serum or Plasma 133 mmol/L 136-145 L [facility] Urea nitrogen [Mass/volume] in Serum or Plasma 6 mg/dL 6-20 [facility] Anion gap 3 in Serum or Plasma 10 mmol/L 8-15 [facility] Osmolality of Serum or Plasma by calculation 273 mosm/kg 275-300 L [facility] Creatinine/Urea nitrogen [Mass Ratio] in Serum or Plasma 12 [facility] Calcium [Mass/volume] in Serum or Plasma 7.6 mg/dL 8.6-10.0 L [facility] Glomerular filtration rate/1.73 sq M pre dicted among non-blacks [Volume Rate/Area] in Serum or Plasma by Creatinine-based formula (MDRD) >6 0 [facility] Glomerular filtration rate/1.73 sq M pre dicted among blacks [Volume Rate/Area] in Serum or Plasma by Creatinine-based formula (MDRD) >60 [facility] ID Date Data Source [id number] 12/11/2020 08:31:44 AM [facility] Name Value Range Interpretation Code Description Data Lou rce(s) Supporting Document(s) Phosphate [Mass/volume] in Serum or Plasma 3.0 mg/dL 2.5-4.5 [facility] ID Date Data Source [id number] 12/10/2020 05:53:09 PM [facility] Name Value Range Interpretation Code Description Data Lou rce(s) Supporting Document(s) History and Physical [facility] [id number]/[id number]LM1kA7oWAC9ETcTFrMqIbCuMiEd [facility] [file] [id number]+[id number] ID Date Data Source [id number] 12/10/2020 05:53:[address] [facility] Name Value Range Interpretation Code Description Data Lou rce(s) Supporting Document(s) History and Physical [facility] FHKZCv1vPeRSTuDw36/VYGmuGVQje5DqQJmpBDo4OUnwTCEgW0VyTCI3wL4xBZG8PZdZDcStXnMlLfHm lbm [file] XEzFNANRWzu0EimDBRumE/OfAKR6Mvy+quill machine tender+5Lq92rKY/rfnh+MD/HDk0FiAnYanh/Z20BY03x+3pTrbs 8P/aYTznKbYsnKCu9pU5ZSV8KZEgPHbtuKHmdyh3hX15tXC6/Pd2AUz4kFirtHP1xlMEOhSCmeylwrG6 x8Z/1DRXTGojIFOpLvOAodWOKxf6mZmStk2C4vHbat V87oelauCV9y+mz9VswtJeHEwZsLI7fkHt3kT3hZSUOWwmTyY9wf8ToPKm4eMni2L/vgb75nHXpIGCtP QlUKXnkJYiL5kCU3W7KIitU9LSQKhIfBDykU4w6F9tj7tlBzlpxOhR9w9KUg45zTX3mB8SWWgTD9ZbIf DBZD2DY8pTWFjEzdCU6IDieGEwSOzfsQoi+Bz6oQh0 Voji4Ast38+UeY5w7IqkiTsND4Xx+Vi1kFHrD6gnv6254Kvfz276/hF03wIR9yk6yw5DzDDmlZw+tgYI DhfqPOh6M+Bav4FopQqBqlY/XZs3P2xdKu1geJXCdIFcesHruwz4qU1eyx+rc/W1bg/+K1Ymr0YQWp1p +8qWYB5l0T953oHDFg45k62S9b/aCX3+sO9x/Q9lC4 [file] WkG9UCT3iYBaOi5ABjTpYDXIDlWwHF0FUPs= ID Date Data Source [id number] 12/10/2020 05:52:[address] [facility] Name Value Range Interpretation Code Description Data Lou rce(s) Supporting Document(s) Consultation [facility] XWKCYh0fSpRKXiCx56/SJIhtXJUcu0CxZAlmRSc3FCkcJQAxD7YhHNE6dU7qBOV7ZThFQpHxNiHtRrYb lbm [file] ICAgICAgICAgICAgICAgICAgICAgICAgICAgICAgICAgICAgICAgICAgICAgICAgICAgICAgICAgICAg ICAgICAgICAgICAgICAgICAgDQogICAgICAgICAgICAgICAgICAgICAgICAgICAgICAgICAgICAgICAg ICAgICAgICAgICAgICAgICAgICAgICAgICAgICAgIC AgICAgICAgICAgICAgICAgICAgICAgICAgICAgDQogICAgICAgICAgICAgICAgICAgICAgICAgICAgIC AgICAgICAgICAgICAgICAgICAgICAgICAgICAgICAgICAgICAgICAgICAgICAgICAgICAgICAgICAgIC AgICAgICAgICAgDQogICAgICAgICAgICAgICAgICAg ICAgICAgICAgICAgICAgICAgICAgICAgICAgICAgICAgICAgICAgICAgICAgICAgICAgICAgICAgICAg ICAgICAgICAgICAgICAgICAgICAgDQogICAgICAgICAgICAgICAgICAgICAgICAgICAgICAgICAgICAg ICAgICAgICAgICAgICAgICAgICAgICAgICAgICAgIC AgICAgICAgICAgICAgICAgICAgICAgICAgICAgICAgDQogICAgICAgICAgICAgICAgICAgICAgICAgIC AgICAgICAgICAgICAgICAgICAgICAgICAgICAgICAgICAgICAgICAgICAgICAgICAgICAgICAgICAgIC AgICAgICAgICAgICAgDQogICAgICAgICAgICAgICAg ICAgICAgICAgICAgICAgICAgICAgICAgICAgICAgICAgICAgICAgICAgICAgICAgICAgICAgICAgICAg ICAgICAgICAgICAgICAgICAgICAgICAgDQogICAgICAgICAgICAgICAgICAgICAgICAgICAgICAgICAg ICAgICAgICAgICAgICAgICAgICAgICAgICAgICAgIC AgICAgICAgICAgICAgICAgICAgICAgICAgICAgICAgICAgDQogICAgICAgICAgICAgICAgICAgICAgIC AgICAgICAgICAgICAgICAgICAgICAgICAgICAgICAgICAgICAgICAgICAgICAgICAgICAgICAgICAgIC AgICAgICAgICAgICAgICAgDQogICAgICAgICAgICAg ICAgICAgICAgICAgICAgICAgICAgICAgICAgICAgICAgICAgICAgICAgICAgICAgICAgICAgICAgICAg MJLtDHMcKGKiSMHtVYGkTWBsOJSxNLYgHBYnLEd6X3qrZKKaTLDnEP7fXEx4Jn6+SGeGKtZfKWG7cdRl rQ0AOT9hp1XsATvbWQWmf6IwYRx3US6YQXLrFRacAB 6WHLukdp8EEDHrJMOxlYRQc5abYsPpEAW0RVHxOnnmFH9IYAKaB0anrbUqWVUdKFZRTKgaIVXVWZbiXG YVFXRyISAcAgAoDeBqIJQjSW2SZVHmB247gdDsZF8UNb8HRwFsST1phm0UWdRlSVNtAbgLMin6NLseQW 2QmYNppPNdAQQrNGUIAnTjC4pgj1ImYsCdILFATSjh KN6Jf8YwnCKaRJx+Wq1JXM8ju2CnDHabPHUjPR8mke2SQSwDFgVsJ3AjuNcpMPSwoxF7fFBcXZD5MWVa s9tusRJOkN9wkcekSQQHDuOceWK0CfIrPkClPpNiHTF9TYJgXU3rQXolYN5FNDS5IVhxLAXnVWBrQ1sL KuMhHILnVrLmkAwzTA7SVmUtJ3KnrkPvnXBiTnArXB INCj4+AMvjdgSzLekEQvX0ZNXmo2FxLXa4IF5DJWKtYHlwVS1BERFswC4lONroSF2AFcFfNRVcBPNWHr DuH11kuIXyCLt6F0HiPgFqGQRrWnpjGVYmMSdnHzZdMMVvQyIzYCfiZS6+ID4+BTtgCE5LBMgjdsDeWX ThSr9VWPXaDGPpMX7kPMNtHDHfD3M3nCmdDHQVQsCl J7wnbxdlOY4hUDHjQ083bWpnayEoGNCsFIHqKn7FSAMtTSC8CJUbbCVpEwXsJKHLQCyqWA5NjEEuSXL9 fC9eMNxbPOBkTQOhP1oNPoCbdGmvYZ77sQogxvDpnDEsOGl+Is9QUX1yt0JvGRf3atGaHVjtBVP0OJpt YLXbIKLrXMXiGZW6FKN7EWAPLnBcIQEnLHJiQSlnLA XcDWKhqy3TREXxAPCjCUF3DzAtOVXrOAJoUDihNQStWNG5LRF7WNNtWRBqNQ5TQgAuNKBsNPUgYRuvPE PpVCNnka5HQENeXUXqOiQmBwJxIJUaHXRoFRemSOOoRMBzXMM2IGNvLIPcIO6ZEhXzYZRqTHbeGGRsTP EhMPRfau6DKPPfOFYuQzYgIPBtCGHvWIJjNTauIOIb NIKnLbC6XZPvOSEmPT0TQpLjZYXfJAM2TdQqWYUoZUKprm8QCBGuZUTgGik7FIDhGWUjKPMjIEjcADPo WMR3BPnmBZDbXNBwXO0VPbYrGKDiRfQjRJZlCSJuPNJpxf2TTXPnKIBbPVJqSiAeCNZcNSQrXLztGTHv FHLwJlF1TTPrCPXsFM7IEhYqEPRiHiE7PzSqMGCpQQ Kzsd7AZRJlNTDuGKb9LzCeVVVbFIIcNAraYVOaVIUjEpW7MSLbJFMyFD7ZZsGrWWTcUbR0HVldHRVeOI Lnpd6XNFWaRPJmFgR3HZXvDNVpZCQmGHxfDOGeREL1RKH0MQAjHSXrOA3CLbNuHHXhLjEcFIOuIWUnGX Hrvr8TRFQaGGSwVZMaLPIsVKYsQOQjUFxeWYDrNRX1 JSPkSAHrNHBeNK0ISbOiWJIdXgJcNvtrQUEpIWPflo4JLIAuFSQzQrF0GrFwMLJtJMLzOItdQTCcXOU6 RGl2ZPPpDOVdZR8ZAqZsKGRfGkR6QmNkCPNrJFSmre3VFQUfWIBlGhD8QDEdZMNfDVJeCWdsESYkNTK6 CPR0SDMfKIPpCV5DMrEfGTBuUngvNMEvIHSgNWRitd 2DXTCxAWBpCSO8BOOhNHWyBVDbQWieWAIfNXH1WDE9CXFkRODtDH5NXnTpJTXoMJDjNBrhNMAdGTHxuk 8VQFFrBKP2JUO0VvUaQLBwDPFpGWv6pgHedMEkTBr2JX3PU5XrkkCpQlUQPm0Bt275TRI8EDBoCl8KO4 auOs5bTRGnIUWDVd0ZZLv1XZaqPRAxQZR8ZGD8GnFi ZVmnXisgPTA1HUL3YHM9VCO+EYi1DJMgJBD8GNPyDiN5BZAvE3PtVWMhKzg5OMPwTKa6IQ6gUBZNXj1+ RCxfdBUphYxyQVJGYuBzNFH4WXnfGKDZLd9T ID Date Data Source [id number] [facility] Interpretation Code Description Data Lou rce(s) Supporting Document(s) Leukocytes [#/volume] in Blood by Automated count 8.4 10*3/uL 4-10 [facility] Erythrocytes [#/volume] in Blood by Automated count 3.48 10*6/uL 4.6- 6.1 L [facility] Hemoglobin [Mass/volume] in Blood 9.7 g/dL 13.5-18 L [facility] Hematocrit [Volume Fraction] of Blood by Automated count 29.9 % 4 1-53 L [facility] Erythrocyte mean corpuscular volume [Entitic volume] by Auto mated count 85.9 fL 80-96 [facility] Erythrocyte mean corpuscular hemoglobin [Entitic mass] by Automated count 27.9 pg 27-33 [facility] Erythrocyte mean corpuscular hemoglobin concentration [Mass/volume] by Automated count 32.5 g/dL 32.0-36.0 [facility] E[facility]th[facility] distribution width [Ratio] by Automated count 17.3 % 11.5-14.5 H [facility] Platelets [#/volume] in Blood by Automated count 127 10*3/uL 150-400 L [facility] ID Date Data Source [id number] 12/10/2020 01:48:36 PM [facility] Name Value Range Interpretation Code Description Data Lou rce(s) Supporting Document(s) Bicarbonate [Moles/volume] in Serum 22 mmol/L 22-29 [facility] Chloride [Moles/volume] in Serum or Plasma 102 mmol/L 98-107 [facility] Creatinine [Mass/volume] in Serum or Plasma 0.54 mg/dL 0.70-1.20 L [facility] Glucose [Mass/volume] in Serum or Plasma 84 mg/dL 70-140 [facility] Potassium [Moles/volume] in Serum or Plasma 3.9 mmol/L 3.4-5.1 [facility] Sodium [Moles/volume] in Serum or Plasma 132 mmol/L 136-145 L [facility] Urea nitrogen [Mass/volume] in Serum or Plasma 7 mg/dL 6-20 [facility] Anion gap 3 in Serum or Plasma 8 mmol/L 8-15 [facility] Osmolality of Serum or Plasma by calculation 271 mosm/kg 275-300 L [facility] Creatinine/Urea nitrogen [Mass Ratio] in Serum or Plasma 13 [facility] Calcium [Mass/volume] in Serum or Plasma 7.9 mg/dL 8.6-10.0 L [facility] Glomerular filtration rate/1.73 sq M pre dicted among non-blacks [Volume Rate/Area] in Serum or Plasma by Creatinine-based formula (MDRD) >6 0 [facility] Glomerular filtration rate/1.73 sq M pre dicted among blacks [Volume Rate/Area] in Serum or Plasma by Creatinine-based formula (MDRD) >60 [facility] ID Date Data Source [id number] 12/10/2020 10:56:25 AM [facility] Name Value Range Interpretation Code Description Data Lou rce(s) Supporting Document(s) Calcium.ionized [Moles/volume] in Arterial blood 1.08 mmol/L 1.13-1.3 2 [facility] ID Date Data Source [id number] 12/10/2020 10:55:28 AM [facility] Name Value Range Interpretation Code Description Data Lou rce(s) Supporting Document(s) Leukocytes [#/volume] in Blood by Automated count 6.5 10*3/uL 4-10 [facility] Erythrocytes [#/volume] in Blood by Automated count 3.30 10*6/uL 4.6- 6.1 L [facility] Hemoglobin [Mass/volume] in Blood 9.2 g/dL 13.5-18 L [facility] Hematocrit [Volume Fraction] of Blood by Automated count 28.1 % 4 1-53 [facility] Erythrocyte mean corpuscular volume [Entitic volume] by Auto mated count 85.3 fL 80-96 [facility] Erythrocyte mean corpuscular hemoglobin [Entitic mass] by Automated count 27.8 pg 27-33 [facility] Erythrocyte mean corpuscular hemoglobin concentration [Mass/volume] by Automated count 32.7 g/dL 32.0-36.0 [facility] Erythrocyte distribution width [Ratio] by Automated count 17.3 % 11.5-14.5 H [facility] Platelets [#/volume] in Blood by Automated count 110 10*3/uL 150-400 L [facility] ID Date Data Source [id number] 12/10/2020 06:01:23 AM [facility] Name Value Range Interpretation Code Description Data Lou rce(s) Supporting Document(s) Magnesium [Mass/volume] in Serum or Plasma 2.2 mg/dL 1.6-2.6 [facility] ID Date Data Source [id number] 12/10/2020 06:01:23 AM [facility] Value Range Interpretation Code Description Data Lou rce(s) Supporting Document(s) Phosphate [Mass/volume] in Serum or Plasma 3.1 mg/dL 2.5-4.5 [facility] ID Date Data Source [id number] 12/10/2020 06:01:23 AM [facility] Value Range Interpretation Code Description Data Olu rce(s) Supporting Document(s) Albumin [Mass/volume] in Serum or Plasma by Bromocresol green (BCG) dye binding method 2.3 g/dL 3.5-5.2 L [facility] Bilirubin.total [Mass/volume] in Serum or Plasma 1.2 mg/dL <1.2 H [facility] Calcium [Mass/volume] in Serum or Plasma 7.5 mg/dL 8.6-10.0 L [facility] Chloride [Moles/volume] in Serum or Plasma 102 mmol/L 98-107 [facility] Creatinine [Mass/volume] in Serum or Plasma 0.57 mg/dL 0.70-1.20 L [facility] Glucose [Mass/volume] in Serum or Plasma 88 mg/dL 70-140 [facility] Alkaline phosphatase [Enzymatic activity/volume] in Serum or Plasma 104 U/L 40-129 [facility] Potassium [Moles/volume] in Serum or Plasma 3.8 mmol/L 3.4-5.1 [facility] Protein [Mass/volume] in Serum or Plasma 4.7 g/dL 6.4-8.3 L [facility] Sodium [Moles/volume] in Serum or Plasma 129 mmol/L 136-145 L [facility] Aspartate aminotransferase [Enzymatic activity/volume] in Serum or Plasma 145 U/L <40 H [facility] Urea nitrogen [Mass/volume] in Serum or Plasma 8 mg/dL 6-20 [facility] Osmolality of Serum or Plasma by calculation 265 mosm/kg 275-300 L [facility] Creatinine/Urea nitrogen [Mass Ratio] in Serum or Plasma 14 [facility] Bicarbonate [Moles/volume] in Serum 20 mmol/L 22-29 L [facility] Alanine aminotransferase [Enzymatic activity/volume] in Seru m or Plasma 54 U/L <41 H [facility] Anion gap 3 in Serum or Plasma 6 mmol/L 8-15 L [facility] Glomerular filtration rate/1.73 sq M pre dicted among non-blacks [Volume Rate/Area] in Serum or Plasma by Creatinine-based formula (MDRD) >6 0 [facility] Glomerular filtration rate/1.73 sq M pre dicted among blacks [Volume Rate/Area] in Serum or Plasma by Creatinine-based formula (MDRD) >60 [facility] ID Date Data Source [id number] 12/10/2020 01:34:51 AM EDT [facility] Name Value Range Interpretation Code Description Data Lou rce(s) Supporting Document(s) Leukocytes [#/volume] in Blood by Automated count 7.5 10*3/uL 4-10 [facility] Erythrocytes [#/volume] in Blood by Automated count 2.95 10*6/uL 4.6- 6.1 [facility] Hemoglobin [Mass/volume] in Blood 8.1 g/dL 13.5-18 L [facility] Hematocrit [Volume Fraction] of Blood by Automated count 25.3 % 4 1-53 [facility] Erythrocyte mean corpuscular volume [Entitic volume] by Auto mated count 85.9 fL 80-96 [facility] Erythrocyte mean corpuscular hemoglobin [Entitic mass] by Automated count 27.5 pg 27-33 [facility] Erythrocyte mean corpuscular hemoglobin concentration [Mass/volume] by Automated count 32.1 g/dL 32.0-36.0 [facility] Erythrocyte distribution width [Ratio] by Automated count 17.2 % 11.5-14.5 H [facility] Platelets [#/volume] in Blood by Automated count 105 10*3/uL 150-400 L [facility] ID Date Data Source [id number] 12/09/2020 06:15:[address] [facility] Name Value Range Interpretation Code Description Data Lou rce(s) Supporting Document(s) Consultation [facility] KGUGPq4bTpVBRrGy89/RDHgiEDWfm8UgGOqhJUr3OWiiOMNsE3ZwXTM0kE9vMZG2RLpBPlBbEbTmLyKy lbm [file] CHKoGYBoAOV0KXa1QCFxYwN+TU4cMSj+Hv9Ra8SwseY3dbQpINcbVQs9Qr6CIGEMZ1XMYm== ID Date Data Source [id number] 12/09/2020 05:06:16 PM [facility] Name Value Range Interpretation Code Description Data Lou e(s) Supporting Document(s) Leukocytes [#/volume] in Blood by Automated count 6.0 10*3/uL 4-10 [facility] Erythrocytes [#/volume] in Blood by Automated count 3.13 10*6/uL 4.6- 6.1 L [facility] Hemoglobin [Mass/volume] in Blood 8.7 g/dL 13.5-18 L [facility] Hematocrit [Volume Fraction] of Blood by Automated count 26.6 % 4 1-53 L [facility] Erythrocyte mean corpuscular volume [Entitic volume] by Auto mated count 84.9 fL 80-96 [facility] Erythrocyte mean corpuscular hemoglobin [Entitic mass] by Automated count 27.9 pg 27-33 [facility] Erythrocyte mean corpuscular hemoglobin concentration [Mass/volume] by Automated count 32.9 g/dL 32.0-36.0 [facility]th[facility] distribution width [Ratio] by Automated count 17.1 % 11.5-14.5 H [facility] Platelets [#/volume] in Blood by Automated count 100 10*3/uL 150-400 L [facility] ID Date Data Source [id number] 12/09/2020 12:45:[address] [facility] Name Value Range Interpretation Code Description Data Lou rce(s) Supporting Document(s) Glucose [Mass/volume] in Capillary blood by Glucometer 94 mg/dL 70- 140 [facility] ID Date Data Source [id number] 12/09/2020 11:21:01 AM [facility] US ABDOMEN LIMITED [id number] RESULTInte rpreted by:Jessica Lr, DOStudy: ULTRASOUND ABDOMEN [...] rce(s) Supporting Document(s) ID Date Data Source [id number] [facility] Name Value Range Interpretation Code Description Data Lou rce(s) Supporting Document(s) Calcium.ionized [Moles/volume] in Arterial blood 1.13 mmol/L 1.13-1.3 2 [facility] ID Date Data Source [id number] 12/14/2020 10:43:44 AM [facility] Service Cmnt XXX-Imp : R ARMMicroorganis m XXX Cult : No growth 5 days Name Value Range Interpretation Code Description Data Lou rce(s) Supporting Document(s) ID Date Data Source [id number] 12/09/2020 06:24:47 AM [facility] Name Value Range Interpretation Code Description Data Lou rce(s) Supporting Document(s) Leukocytes [#/volume] in Blood by Automated count 6.9 10*3/uL 4-10 [facility] Erythrocytes [#/volume] in Blood by Automated count 2.54 10*6/uL 4.6- 6.1 L [facility] Hemoglobin [Mass/volume] in Blood 7.0 g/dL 13.5-18 L [facility] Hematocrit [Volume Fraction] of Blood by Automated count 21.3 % 4 1-53 L [facility] Erythrocyte mean corpuscular volume [Entitic volume] by Auto mated count 83.7 fL 80-96 [facility] Erythrocyte mean corpuscular hemoglobin [Entitic mass] by Automated count 27.4 pg 27-33 [facility] Erythrocyte mean corpuscular hemoglobin concentration [Mass/volume] by Automated count 32.7 g/dL 32.0-36.0 [facility] E[facility]throcyte distribution width [Ratio] by Automated count 17.1 % 11.5-14.5 H [facility] Platelets [#/volume] in Blood by Automated count 107 10*3/uL 150-400 L [facility] ID Date Data Source [id number] 12/09/2020 06:41:24 AM EDT [facility] Name Value Range Interpretation Code Description Data Lou rce(s) Supporting Document(s) Albumin [Mass/volume] in Serum or Plasma by Bromocresol green (BCG) dye binding method 2.1 g/dL 3.5-5.2 [facility] Bilirubin.total [Mass/volume] in Serum or Plasma 1.1 mg/dL <1.2 [facility] Calcium [Mass/volume] in Serum or Plasma 7.2 mg/dL 8.6-10.0 L [facility] Chloride [Moles/volume] in Serum or Plasma 106 mmol/L 98-107 [facility] Creatinine [Mass/volume] in Serum or Plasma 0.47 mg/dL 0.70-1.20 L [facility] Glucose [Mass/volume] in Serum or Plasma 81 mg/dL 70-140 [facility] Alkaline phosphatase [Enzymatic activity/volume] in Serum or Plasma 104 U/L 40-129 [facility] Potassium [Moles/volume] in Serum or Plasma 4.0 mmol/L 3.4-5.1 [facility] Protein [Mass/volume] in Serum or Plasma 4.3 g/dL 6.4-8.3 L [facility] Sodium [Moles/volume] in Serum or Plasma 131 mmol/L 136-145 L [facility] Aspartate aminotransferase [Enzymatic activity/volume] in Serum or Plasma 52 U/L <40 H [facility] Urea nitrogen [Mass/volume] in Serum or Plasma 14 mg/dL 6-20 [facility] Osmolality of Serum or Plasma by calculation 272 mosm/kg 275-300 L [facility] Creatinine/Urea nitrogen [Mass Ratio] in Serum or Plasma 29 [facility] Bicarbonate [Moles/volume] in Serum 19 mmol/L 22-29 L [facility] Alanine aminotransferase [Enzymatic activity/volume] in Seru m or Plasma 19 U/L <41 [facility] Anion gap 3 in Serum or Plasma 6 mmol/L 8-15 L [facility] Glomerular filtration rate/1.73 sq M pre dicted among non-blacks [Volume Rate/Area] in Serum or Plasma by Creatinine-based formula (MDRD) >6 0 [facility] Glomerular filtration rate/1.73 sq M pre dicted among blacks [Volume Rate/Area] in Serum or Plasma by Creatinine-based formula (MDRD) >60 [facility] ID Date Data Source [id number] 12/09/2020 09:48:[facility] Name Value Range Interpretation Code Description Data Lou rce(s) Supporting Document(s) Magnesium [Mass/volume] in Serum or Plasma 1.7 mg/dL 1.6-2.6 [facility] ID Date Data Source [id number] 12/09/2020 09:48:45 AM [facility] Name Value Range Interpretation Code Description Data Lou rce(s) Supporting Document(s) Phosphate [Mass/volume] in Serum or Plasma 2.3 mg/dL 2.5-4.5 L [facility] ID Date Data Source [id number] 12/09/2020 02:18:20 AM [facility] Name Value Range Interpretation Code Description Data Lou rce(s) Supporting Document(s) Color of Urine [facility] Clarity of Urine [facility] Specific gravity of Urine by Refractometry automated 1.010 1.003 -1.030 [facility] pH of Urine by Automated test strip 7.0 5.0-8.0 [facility] Protein [Mass/volume] in Urine by Automated test strip Neg [facility] Glucose [Mass/volume] in Urine by Automated test strip Neg [facility] Ketones [Mass/volume] in Urine by Automated test strip Neg [facility] Bilirubin.total [Presence] in Urine by Automated test strip Negative [facility] Hemoglobin [Presence] in Urine by Automated test strip Neg [facility] Leukocyte esterase [Presence] in Urine by Automated test strip Negative [facility] Nitrite [Presence] in Urine by Automated test strip Negati ve [facility] Leukocytes [#/area] in Urine sediment by Automated count 0 /HPF 0 -5 [facility] Erythrocytes [#/area] in Urine sediment by Automated count 0 /HPF 0-3 [facility] Service comment [facility] ID Date Data Source [id number] 12/14/2020 10:43:44 AM [facility] Service Cmnt XXX-Imp : L ARMMicroorganis m XXX Cult : No growth 5 days Name Value Range Interpretation Code Description Data Lou rce(s) Supporting Document(s) ID Date Data Source [id number] 12/11/2020 07:07:[address] [facility] Name Value Range Interpretation Code Description Data Lou rce(s) Supporting Document(s) ABO and Rh group [Type] in Blood [facility] Blood group antibody screen [Presence] in Serum or Plasma [facility] Performed at [facility], Raquel Stark Geeta brody, [id number] ID Date Data Source [id number] 12/08/2020 11:59:00 PM EDT [facility] Name Value Range Interpretation Code Description Data Lou rce(s) Supporting Document(s) SARS-CoV-2 RNA 2019 nCoV Real-Time RT-PCR: NOT DETECTED [facility] This lab was ordered by [facility] and reported by [facility] ID Date Data Source [id number] 12/09/2020 09:30:29 AM EDT [facility] Value Range Interpretation Code Description Data Lou rce(s) Supporting Document(s) Specimen source [Identifier] of Unspecified specimen [facility] SARS-CoV-2 RNA 2019 nCoV Real-Time RT-PCR: NOT DETECTED [facility] Assay Performed [facility] Patients first test for [facility] Patient employed in healthcare setting [facility] Patient has symptoms related to [facility] When did you start to experience these symptoms [Date and time] [Phen X] [facility] Patient was hospitalized because of this condition [facility] patient was admitted to ICU for [facility] Patient resides in a congregate care setting [facility] status [facility] ID Date Data Source [id number] 12/09/2020 12:23:[address] [facility] Name Value Range Interpretation Code Description Data Lou rce(s) Supporting Document(s) Leukocytes [#/volume] in Blood by Automated count 11.0 10*3/uL 4-10 H [facility] Erythrocytes [#/volume] in Blood by Automated count 2.48 10*6/uL 4.6- 6.1 L [facility] Hemoglobin [Mass/volume] in Blood 6.6 g/dL 13.5-18 L [facility] Hematocrit [Volume Fraction] of Blood by Automated count 20.1 % 4 1-53 [facility] Called to and read back by fito starr rn 6i [id number] at 0022 by 1522 Erythrocyte mean corpuscular volume [Entitic volume] by Auto mated count 81.1 fL 80-96 [facility] Erythrocyte mean corpuscular hemoglobin [Entitic mass] by Automated count 26.6 pg 27-33 L [facility] Erythrocyte mean corpuscular hemoglobin concentration [Mass/volume] by Automated count 32.7 g/dL 32.0-36.0 [facility] Erythrocyte distribution width [Ratio] by Automated count 16.2 % 11.5-14.5 H [facility] Platelets [#/volume] in Blood by Automated count 131 10*3/uL 150-400 L [facility] ID Date Data Source [id number] 12/09/2020 12:31:19 AM [facility] Value Range Interpretation Code Description Data Lou rce(s) Supporting Document(s) aPTT in Platelet poor plasma by Coagulation assay 31.0 s 24.0-33. 0 [facility] ID Date Data Source [id number] 12/09/2020 12:31:19 AM [facility] Value Range Interpretation Code Description Data Lou rce(s) Supporting Document(s) Prothrombin time (PT) 16.9 s 11.6-14.0 H [facility] INR in Platelet poor plasma by Coagulation assay 1.44 [facility] Routine intensity oral anticoagulation I NR is typically 2.0-3.0. Target INR must be clinically individualized. ID Date Data Source [id number] 12/09/2020 12:52:30 AM [facility] Value Range Interpretation Code Description Data Lou rce(s) Supporting Document(s) Lipase [Enzymatic activity/volume] in Serum or Plasma 226 U/L 13-6 0 H [facility] ID Date Data Source [id number] 12/09/2020 12:52:30 AM [facility] Value Range Interpretation Code Description Data Lou rce(s) Supporting Document(s) Albumin [Mass/volume] in Serum or Plasma by Bromocresol green (BCG) dye binding method 2.4 g/dL 3.5-5.2 L [facility] al Bilirubin.total [Mass/volume] in Serum or Plasma 1.0 mg/dL <1.2 [facility] Calcium [Mass/volume] in Serum or Plasma 7.9 mg/dL 8.6-10.0 L [facility] Chloride [Moles/volume] in Serum or Plasma 97 mmol/L 98-107 L [facility] Creatinine [Mass/volume] in Serum or Plasma 0.49 mg/dL 0.70-1.20 L [facility] Glucose [Mass/volume] in Serum or Plasma 92 mg/dL 70-140 [facility] Alkaline phosphatase [Enzymatic activity/volume] in Serum or Plasma 121 U/L 40-129 [facility] Potassium [Moles/volume] in Serum or Plasma 3.9 mmol/L 3.4-5.1 [facility] Protein [Mass/volume] in Serum or Plasma 4.8 g/dL 6.4-8.3 L [facility] Sodium [Moles/volume] in Serum or Plasma 125 mmol/L 136-145 L [facility] Aspartate aminotransferase [Enzymatic activity/volume] in Serum or Plasma 52 U/L <40 H [facility] Urea nitrogen [Mass/volume] in Serum or Plasma 17 mg/dL 6-20 [facility] Osmolality of Serum or Plasma by calculation 261 mosm/kg 275-300 [facility] Creatinine/Urea nitrogen [Mass Ratio] in Serum or Plasma 35 [facility] Bicarbonate [Moles/volume] in Serum 22 mmol/L 22-29 [facility] Alanine aminotransferase [Enzymatic activity/volume] in Seru m or Plasma 21 U/L <41 [facility] Anion gap 3 in Serum or Plasma 6 mmol/L 8-15 L [facility] Glomerular filtration rate/1.73 sq M pre dicted among non-blacks [Volume Rate/Area] in Serum or Plasma by Creatinine-based formula (MDRD) >6 0 [facility] Glomerular filtration rate/1.73 sq M pre dicted among blacks [Volume Rate/Area] in Serum or Plasma by Creatinine-based formula (MDRD) >60 [facility] ID Date Data Source [id number] 12/08/2020 06:44:00 PM EDT [facility] Name Value Range Interpretation Code Description Data Lou rce(s) Supporting Document(s) SARS coronavirus 2 RNA [Presence] in Res piratory specimen by TOYA with probe detection [facility] This lab was ordered by [facility] a nd reported by [facility]. ID Date Data Source [id number] 11/26/2020 08:42:[address] [facility] Name Value Range Interpretation Code Description Data Lou rce(s) Supporting Document(s) ED Provider Note [facility] NNHQHx6lVpPMHiRu24/KJDqcDPCcj0XlYDfhTAr8SHhwURWoL9NeOHY6hQ1yNLG4MLaJAmToBcUmMqT0 lbm [file] AwMzQzNiAwMDAwMCBuDQowMDAwMDAzNjQwIDAwMDAw NN7ASzEgUXLmELU6TvBsNTYrKMOafy2TZVKmHOAxJgG8DFNcUZExWWNfHAqqOSBeALR7ExU6DOGqFVLh AX6EUxXrMYReJHs9XVCzKCVxIGQhbp2XYKLdCSTzLsSzQPXeHTKiZLJjNHruDUVbETTjVuR6FONeLYGz EW9ACiWiACEwRIY9EZBeVYXnWWKurj4TYKBjCQJzEt PfTWRlYNWbZGQfOVkkOHAkDEZ1MVPuTBUaAIUsGP7MGdEgBSOrHXx5ERfwRICqGCElvb0HMGDkOXZuNh S7WCPhWJVwKRBtDPvzEWDsNEUaNmP5WEXkOIYaIM2IGmMyHXTjWaCrXjcdQVFfMREntx8MKBTkIFOmCs N4JRAlJTTuBZObDCyoRVWkYCI9SmkvEUQsRZHyJC1M QvBsXCKrTbc7HWKfEDQuRULgop6LUPCnVOChOlBlWoGoVVUzGIObXUkkGEHuMANgWCXvWNUvTSNoIW8W NlXuHXPhNoO0PCJvWPRlTAQcld1PFHShJSSdUFilPTBxNQWfBQCbAOnyBMWmPZA8QpdyGZVlVPPwXX8K QcWeXTIbWnt1HCwxXDZuFXKfwo0RHWDrLWC2FDv6HZ YcPZOrGLKkSUehZSHfWBQuWMHhABXdCTCcLG0ITlThVMKaGYLeUwHiXYVbOYHpmi3FNIKxURX7McKtPL ZdOJLyZTFiVKiqWPFsNDYbOJYqTQCtCQEmFJ0LVfCxVDFsFNNcOgPzPWIyZARezc3HSFVdGDC7TxO2Nd PmNXOnWQLzAVfdOITyQMDyKwOoUAAoCUVeFQ6FKyIw REGmPHZsNlSxXIWfXZGagz0ZSTEkVFX2CXB4JnWrDWQuWIEbBJcaXAHfKTR3MvQaYIBsBBQvSJ9UAlAf BHZuDAH7SFAkNSInSPAmbb7VURZxZMA2LcU3IoSsZDHcARTlDDavFXMmKES1XXazMUKwWGVuID1NInEv TYIqURreImDgDHMcYZXabf8KPTVvSCU5TpH9ByIlCU JlYHSmWFwtGPAqYEK7IoZtMPFtNTMfWL3XWcWrHQEwSRvpVGIfFPHgUZQplm6PZSPvHWR0WBP4SqYpNN EpIWQtERztPRMmXDU2FCM5KOArGEAtKM7ZLlHoFYDoJFn6JyczPZUtIKVfcl2JJGScWEN4LUr3HvJuCE RvXBOlXLpcBSXzPQOvUJS9ATXbFFRlNQ2FJiMsHZXj XgIdMReiSMVxWPQatz7YvRBzfWaeqr9BBApNDo9OdCjkWVBoQOsrFe3qaTG0XpVmJYKLMo2VtsMbPNXz IRMVTKngSTWcIUCeIEE5RIAuXhE4AURuMIDxLHE2UAxmD4S2UrzfEOD0GrS0I2N8QzhpIlK9LxftBFUy EVT8RczbXPSwFxD7XPH3Klc+SZ9lNNg+Kw9Oh5WylcZ8flPbFQx4EYO5Fp4WPEVKD3ORHj== ID Date Data Source [id number] 11/17/2020 11:27:[address] [facility] Name Value Range Interpretation Code Description Data Lou rce(s) Supporting Document(s) Discharge Summary [facility] YXNTFc9rEfVULiDe61/TUNraCRMfh8NvFWaoJNg5OBpyERDvR6AtXKC4gQ5xPPQ0TSxELoQvMbCeXgVl lbm [file] H0ExS9NJxfFi6oVMFYKr2+KXjluKDzxFwzRGOUYvY8HBH1HCegPLAOHp5R ID Date Data Source [id number] 11/17/2020 03:42:[address] [facility] Name Value Range Interpretation Code Description Data Lou rce(s) Supporting Document(s) Progress Note [facility] MFDGKi2mYiXCLnAx05/MEOhiQSTjm7IgLEyrMCp7LEquVXOkU7IgWVT4fW7jLIS8AFdZXvHrWtHlRxUw lbm [file] YNCg== ID Date Data Source [id number] 11/17/2020 03:24:[address] [facility] Name Value Range Interpretation Code Description Data Lou rce(s) Supporting Document(s) Consultation [facility] GDXUXt9rUlUTArZx75/OKKvdNIWdw2CcOPksOGp2JEggVMOhN2HiHVJ1wF6cYMH6HLpBWqZfXuNzAaOb lbm [file] HxSJC7G1BqNSTpNThgIBU5UImtIKCxTRSvUvDqNQ 1JLi6RWuT7GGH1xCZaQc6RRlO3YVVWTxMyUN5TIWp= ID Date Data Source [id number] 11/17/2020 02:27:[address] [facility] Name Value Range Interpretation Code Description Data Lou rce(s) Supporting Document(s) Leukocytes [#/volume] in Blood by Automated count 8.2 10*3/uL 4-10 [facility] Erythrocytes [#/volume] in Blood by Automated count 3.30 10*6/uL 4.6- 6.1 L [facility] Hemoglobin [Mass/volume] in Blood 8.8 g/dL 13.5-18 L [facility] Hematocrit [Volume Fraction] of Blood by Automated count 26.5 % 4 1-53 L [facility] Erythrocyte mean corpuscular volume [Entitic volume] by Auto mated count 80.3 fL 80-96 [facility] Erythrocyte mean corpuscular hemoglobin [Entitic mass] by Automated count 26.6 pg 27-33 L [facility] Erythrocyte mean corpuscular hemoglobin concentration [Mass/volume] by Automated count 33.1 g/dL 32.0-36.0 [facility] Erythrocyte distribution width [Ratio] by Automated count 19.2 % 11.5-14.5 H [facility] Platelets [#/volume] in Blood by Automated count 203 10*3/uL 150-400 [facility] Confirmed ID Date Data Source [id number] 11/17/2020 09:20:[address] [facility] US ABDOMEN LIMITED [id number] RESULTInte rpreted by:ALEX CarringtonROCEDURE INFORMATION: Exam: US [...] which has nodular contour. Series 1, image [id number] indicates normal portal hepatopetal flow of the [...] rce(s) Supporting Document(s) ID Date Data Source [id number] 11/17/2020 08:51:22 AM [facility] Name Value Range Interpretation Code Description [facility] USEJOg1vKsGCPaYa02/WAZuuCVAab9QuLJjyOLq7TDlwEBOhE4DyBZG3wY9yUJB8VLcNFqImBxToDbWe m [file] [id number]A8CKDw== ID Date Data Source [id number] 11/17/2020 08:31:[address] [facility] Name Value Range Interpretation Code Description Data Lou rce(s) Supporting Document(s) Glucose [Mass/volume] in Capillary blood by Glucometer 133 mg/dL 70- 140 [facility] ID Date Data Source [id number] 11/17/2020 07:48:[address] [facility] Name Value Range Interpretation Code Description Data Lou rce(s) Supporting Document(s) History and Physical [facility] MUBJPy2pBjWLTaKa93/ZGQejEWDwm7PcGXgrWDm6PXpqRDGsA5IrRJF8sU5lUOR7OOmQRnCjJxUcWiKa lbm [file] block trimmer+QAYwaIZiMPZeJmyPviXz5pY6siYIloS62TM3kT9ZyvHGA1+cS5ki6KnHN+39pa3a9jGaM3gLUTzM [file] [id number] ID Date Data Source [id number] 11/17/2020 03:04:[address] [facility] Name Value Range Interpretation Code Description Data Lou rce(s) Supporting Document(s) Leukocytes [#/volume] in Blood by Automated count 7.4 10*3/uL 4-10 [facility] Erythrocytes [#/volume] in Blood by Automated count 3.00 10*6/uL 4.6- 6.1 L [facility] Hemoglobin [Mass/volume] in Blood 7.8 g/dL 13.5-18 L [facility] Hematocrit [Volume Fraction] of Blood by Automated count 24.0 % 4 1-53 L [facility] Erythrocyte mean corpuscular volume [Entitic volume] by Auto mated count 80.2 fL 80-96 [facility] Erythrocyte mean corpuscular hemoglobin [Entitic mass] by Automated count 26.1 pg 27-33 L [facility] Erythrocyte mean corpuscular hemoglobin concentration [Mass/volume] by Automated count 32.6 g/dL 32.0-36.0 [facility] Erythrocyte distribution width [Ratio] by Automated count 19.2 % 11.5-14.5 H [facility] Platelets [#/volume] in Blood by Automated count 165 10*3/uL 150-400 [facility] Differential cell count method - Blood [facility] Neutrophils/100 leukocytes in Blood by Automated count 62 % [facility] Lymphocytes/100 leukocytes in Blood by Automated count 13 % [facility] Monocytes/100 leukocytes in Blood by Automated count 21 % [facility] Eosinophils/100 leukocytes in Blood by Automated count 3 % [facility] Basophils/100 leukocytes in Blood by Automated count 1 % [facility] Neutrophils [#/volume] in Blood by Automated count 4.58 10*3/uL 1.8-7 .0 [facility] Lymphocytes [#/volume] in Blood by Automated count 0.99 10*3/uL 1.2-4 .0 L [facility] Monocytes [#/volume] in Blood by Automated count 1.58 10*3/uL 0-0.8 H [facility] Eosinophils [#/volume] in Blood by Automated count 0.22 10*3/uL 0-0.5 [facility] Basophils [#/volume] in Blood by Automated count 0.04 10*3/uL 0-0.2 [facility] Nucleated erythrocytes/100 leukocytes [Ratio] in Blood by Automated count 0 /100{WBCs} 0-0 [facility] ID Date Data Source [id number] 11/17/2020 03:21:33 AM EDT [facility] Name Value Range Interpretation Code Description Data Lou rce(s) Supporting Document(s) Bicarbonate [Moles/volume] in Serum 27 mmol/L 22-29 [facility] Chloride [Moles/volume] in Serum or Plasma 97 mmol/L 98-107 [facility] Creatinine [Mass/volume] in Serum or Plasma 0.44 mg/dL 0.70-1.20 [facility] Glucose [Mass/volume] in Serum or Plasma 117 mg/dL 70-140 [facility] Potassium [Moles/volume] in Serum or Plasma 3.2 mmol/L 3.4-5.1 [facility] Sodium [Moles/volume] in Serum or Plasma 132 mmol/L 136-145 [facility] Urea nitrogen [Mass/volume] in Serum or Plasma 6 mg/dL 6-20 [facility] Anion gap 3 in Serum or Plasma 8 mmol/L 8-15 [facility] Osmolality of Serum or Plasma by calculation 273 mosm/kg 275-300 L [facility] Creatinine/Urea nitrogen [Mass Ratio] in Serum or Plasma 14 [facility] Calcium [Mass/volume] in Serum or Plasma 7.7 mg/dL 8.6-10.0 L [facility] Glomerular filtration rate/1.73 sq M pre dicted among non-blacks [Volume Rate/Area] in Serum or Plasma by Creatinine-based formula (MDRD) >6 0 [facility] Glomerular filtration rate/1.73 sq M pre dicted among blacks [Volume Rate/Area] in Serum or Plasma by Creatinine-based formula (MDRD) >60 [facility] ID Date Data Source [id number] 11/17/2020 02:46:49 AM EDT [facility] Value Range Interpretation Code Description Data Lou rce(s) Supporting Document(s) Glucose [Mass/volume] in Capillary blood by Glucometer 132 mg/dL 70- 140 [facility] ID Date Data Source [id number] 11/16/2020 11:03:46 PM [facility] Value Range Interpretation Code Description Data Lou rce(s) Supporting Document(s) Glucose [Mass/volume] in Capillary blood by Glucometer 152 mg/dL 70- 140 [facility] ID Date Data Source [id number] 11/16/2020 07:34:41 PM [facility] Value Range Interpretation Code Description Data Lou rce(s) Supporting Document(s) Glucose [Mass/volume] in Capillary blood by Glucometer 135 mg/dL 70- 140 [facility] ID Date Data Source [id number] 11/16/2020 05:29:34 PM [facility] Value Range Interpretation Code Description Data Lou rce(s) Supporting Document(s) Glucose [Mass/volume] in Capillary blood by Glucometer 90 mg/dL 70- 140 [facility] ID Date Data Source [id number] 11/16/2020 04:15:48 PM [facility] Value Range Interpretation Code Description Data Lou rce(s) Supporting Document(s) Glucose [Mass/volume] in Capillary blood by Glucometer 218 mg/dL 70- 140 [facility] ID Date Data Source [id number] 11/16/2020 03:39:03 PM [facility] Value Range Interpretation Code Description Data Lou rce(s) Supporting Document(s) Leukocytes [#/volume] in Blood by Automated count 8.0 10*3/uL 4-10 [facility] Erythrocytes [#/volume] in Blood by Automated count 3.42 10*6/uL 4.6- 6.1 L [facility] Hemoglobin [Mass/volume] in Blood 8.9 g/dL 13.5-18 L [facility] Hematocrit [Volume Fraction] of Blood by Automated count 27.6 % 4 1-53 L [facility] Erythrocyte mean corpuscular volume [Entitic volume] by Auto mated count 80.8 fL 80-96 [facility] Erythrocyte mean corpuscular hemoglobin [Entitic mass] by Automated count 26.1 pg 27-33 L [facility] Erythrocyte mean corpuscular hemoglobin concentration [Mass/volume] by Automated count 32.3 g/dL 32.0-36.[facility]th[facility] distribution width [Ratio] by Automated count 19.1 % 11.5-14.5 H [facility] Platelets [#/volume] in Blood by Automated count 159 10*3/uL 150-400 [facility] Differential cell count method - Blood [facility] Neutrophils/100 leukocytes in Blood by Automated count 69 % [facility] Lymphocytes/100 leukocytes in Blood by Automated count 10 % [facility] Monocytes/100 leukocytes in Blood by Automated count 16 % [facility] Eosinophils/100 leukocytes in Blood by Automated count 4 % [facility] Basophils/100 leukocytes in Blood by Automated count 1 % [facility] Neutrophils [#/volume] in Blood by Automated count 5.58 10*3/uL 1.8-7 .0 [facility] Lymphocytes [#/volume] in Blood by Automated count 0.79 10*3/uL 1.2-4 .0 L [facility] Monocytes [#/volume] in Blood by Automated count 1.32 10*3/uL 0-0.8 H [facility] Eosinophils [#/volume] in Blood by Automated count 0.31 10*3/uL 0-0.5 [facility] Basophils [#/volume] in Blood by Automated count 0.04 10*3/uL 0-0.2 [facility] Nucleated erythrocytes/100 leukocytes [Ratio] in Blood by Automated count 0 /100{WBCs} 0-0 [facility] ID Date Data Source [id number] 11/16/2020 11:51:13 AM [facility] Name Value Range Interpretation Code Description Data Lou rce(s) Supporting Document(s) Glucose [Mass/volume] in Capillary blood by Glucometer 106 mg/dL 70- 140 [facility] ID Date Data Source [id number] 11/16/2020 07:59:02 AM [facility] Name Value Range Interpretation Code Description Data Lou rce(s) Supporting Document(s) Glucose [Mass/volume] in Capillary blood by Glucometer 119 mg/dL 70- 140 [facility] ID Date Data Source [id number] 11/16/2020 05:48:[address] [facility] Name Value Range Interpretation Code Description Data Lou rce(s) Supporting Document(s) Glucose [Mass/volume] in Capillary blood by Glucometer 101 mg/dL 70- 140 [facility] ID Date Data Source [id number] 11/19/2020 09:27:[address] [facility] Surgical Pathology ReportName: JEFRY MORINMRN: [id number] Number: [id number] Date: 11/16/2020 00:00Received Date: 11/16/2020 11:32Physician(s): RON LINARES MD [place] [place] [place] ReceivedA: Antrum biopsyClinical HistoryMelena.DiagnosisSTOMACH, ANTRUM, BIOPSY: MILD CHRONIC GASTRITIS. NO H. PYLORI IDENTIFIED. Electronically Signed By Kelle Ordaz MD, Attending Pathologist 109:27:42Professional services performed at [facility], [address] [place] [address]. Unless 'gross-only'is specified, the final diagnosis is [...] and their pe rformance characteristics determined by [facility] Pathology department. They have not been cleared or approved by the USFood and Drug Administration. The FDA has determined that such clearanceor approval is not necessary. Name Value Range Interpretation Code Description Data Lou rce(s) Supporting Document(s) ID Date Data Source [id number] 11/16/2020 12:27:[address] [facility] Name Value Range Interpretation Code Description Data Lou rce(s) Supporting Document(s) Bicarbonate [Moles/volume] in Serum 21 mmol/L 22-29 L [facility] Chloride [Moles/volume] in Serum or Plasma 99 mmol/L 98-107 [facility] Creatinine [Mass/volume] in Serum or Plasma 0.54 mg/dL 0.70-1.20 L [facility] Glucose [Mass/volume] in Serum or Plasma 106 mg/dL 70-140 [facility] Potassium [Moles/volume] in Serum or Plasma 4.0 mmol/L 3.4-5.1 [facility] Sodium [Moles/volume] in Serum or Plasma 130 mmol/L 136-145 L [facility] Urea nitrogen [Mass/volume] in Serum or Plasma 8 mg/dL 6-20 [facility] Anion gap 3 in Serum or Plasma 11 mmol/L 8-15 [facility] Osmolality of Serum or Plasma by calculation 269 mosm/kg 275-300 [facility] Creatinine/Urea nitrogen [Mass Ratio] in Serum or Plasma 16 [facility] Calcium [Mass/volume] in Serum or Plasma 8.2 mg/dL 8.6-10.0 [facility] Glomerular filtration rate/1.73 sq M pre dicted among non-blacks [Volume Rate/Area] in Serum or Plasma by Creatinine-based formula (MDRD) >6 0 [facility] Glomerular filtration rate/1.73 sq M pre dicted among blacks [Volume Rate/Area] in Serum or Plasma by Creatinine-based formula (MDRD) >60 [facility] ID Date Data Source [id number] 11/16/2020 12:16:14 AM EDT [facility] Name Value Range Interpretation Code Description Data Lou rce(s) Supporting Document(s) Leukocytes [#/volume] in Blood by Automated count 10.6 10*3/uL 4-10 H [facility] Erythrocytes [#/volume] in Blood by Automated count 3.43 10*6/uL 4.6- 6.1 L [facility] Hemoglobin [Mass/volume] in Blood 8.9 g/dL 13.5-18 L [facility] Hematocrit [Volume Fraction] of Blood by Automated count 27.7 % 4 1-53 L [facility] Erythrocyte mean corpuscular volume [Entitic volume] by Auto mated count 80.9 fL 80-96 [facility] Erythrocyte mean corpuscular hemoglobin [Entitic mass] by Automated count 25.9 pg 27-33 L [facility] Erythrocyte mean corpuscular hemoglobin concentration [Mass/volume] by Automated count 32.0 g/dL 32.0-36.0 [facility] Erythrocyte distribution width [Ratio] by Automated count 18.7 % 11.5-14.5 H [facility] Platelets [#/volume] in Blood by Automated count 136 10*3/uL 150-400 L [facility] Differential cell count method - Blood [facility] Neutrophils/100 leukocytes in Blood by Automated count 72 % [facility] Lymphocytes/100 leukocytes in Blood by Automated count 7 % [facility] Monocytes/100 leukocytes in Blood by Automated count 17 % [facility] Eosinophils/100 leukocytes in Blood by Automated count 3 % [facility] Basophils/100 leukocytes in Blood by Automated count 1 % [facility] Neutrophils [#/volume] in Blood by Automated count 7.64 10*3/uL 1.8-7 .0 H [facility] Lymphocytes [#/volume] in Blood by Automated count 0.71 10*3/uL 1.2-4 .0 L [facility] Monocytes [#/volume] in Blood by Automated count 1.83 10*3/uL 0-0.8 H [facility] Eosinophils [#/volume] in Blood by Automated count 0.34 10*3/uL 0-0.5 [facility] Basophils [#/volume] in Blood by Automated count 0.06 10*3/uL 0-0.2 [facility] Nucleated erythrocytes/100 leukocytes [Ratio] in Blood by Automated count 0 /100{WBCs} 0-0 [facility] ID Date Data Source [id number] 11/15/2020 11:51:[address] [facility] Name Value Range Interpretation Code Description Data Lou rce(s) Supporting Document(s) Glucose [Mass/volume] in Capillary blood by Glucometer 108 mg/dL 70- 140 [facility] ID Date Data Source [id number] [facility]2020 [facility] Interpretation Code Description Data Lou rce(s) Supporting Document(s) [facility] GXAHLb6tQtNGTwOu37/SSZzfENCxf3UgYPjnPXa9LXokWNGhN2XrVDL7vW7oGLJ6ANjLJcNsWlEcXuV7 lbm WwLbqXGmGaSVSkHnlXErIzFNyoDlaqwXVhQB6AnDQ3KGKvR09vQHHpLFJrF7SmQNP0FFG+Ra3XFOLjmX HcAB5PAqfB9F7BrmiSAW6IgZ/NSDFDZhmv1nNpwJI9MWee2AKOLFGnLVMiNfQHughfIr3+ozsKVJa2il MOA5RV09tqYa/DJHyYY3ZB/beyIdj5w5KA6b/61zB2 VO9O/fUvalPNddbVNr+pYaDZL6LLjIrWw9Cn6vd7nHLHw3ss9M4s9yJXjnyRPFYPR3T10K00r1Em/6ts 161OVxJbz4syf0eAydWE56OheJq7CC6cZjFsniXVt9UGxBdNTfOCsWEDujbMzEEFxG0qy9Zr2iJEygUk A/ycg2W/NxkHq9YqyLGMxjB5YHbtZaDp4bdImzfjJt ExhB8Hby7sdnb1JLW0p+3AXXdum+jMPUwsuqF3Ywrq+8rNF7ugW9Rg0Dytd4uBnjgTXD+jMF9BYL4j2a Zs/7paMtuAnEn3UMya7QH2z28PLfr5gaRRhb0wD0dzYf4ev+SgceyoDzpM6zgbK5q79Mh3POA7iON0y/ 7LmtSjPGDKQwGiz0cX7o2xIyMsDI83EvV1vLNDmNH5 pMjln7LhYIWjTaEKfnCSaF/qwMZx4zsyoerqfWZEz8reHcKXP+CmuIwmofvQ5xWYcqTNIwOr199EwJeg Zunk++VOY4Fu27rE2CG4H0ekeXTfllpt1/DEmq0qWCS09hFW1f54NeXR1//MbUMU5/rfprbsMgcdJwff 4bBAMECFD1YykLaJIDkFOKV/ESaz58NWJKGRd8EIZu [file] AgICAgICAgICAgICAgICAgICAgICAgICAgICAgICAg ICAgICAgICAgICAgICAgICAgICAgICAgICAgICAgICAgICAgICAgICAgDQogICAgICAgICAgICAgICAg ICAgICAgICAgICAgICAgICAgICAgICAgICAgICAgICAgICAgICAgICAgICAgICAgICAgICAgICAgICAg ICAgICAgICAgICAgICAgICAgICAgICAgDQogICAgIC AgICAgICAgICAgICAgICAgICAgICAgICAgICAgICAgICAgICAgICAgICAgICAgICAgICAgICAgICAgIC AgICAgICAgICAgICAgICAgICAgICAgICAgICAgICAgICAgDQogICAgICAgICAgICAgICAgICAgICAgIC AgICAgICAgICAgICAgICAgICAgICAgICAgICAgICAg ICAgICAgICAgICAgICAgICAgICAgICAgICAgICAgICAgICAgICAgICAgICAgDQogICAgICAgICAgICAg ICAgICAgICAgICAgICAgICAgICAgICAgICAgICAgICAgICAgICAgICAgICAgICAgICAgICAgICAgICAg ICAgICAgICAgICAgICAgICAgICAgICAgICAgDQogIC AgICAgICAgICAgICAgICAgICAgICAgICAgICAgICAgICAgICAgICAgICAgICAgICAgICAgICAgICAgIC AgICAgICAgICAgICAgICAgICAgICAgICAgICAgICAgICAgICAgDQogICAgICAgICAgICAgICAgICAgIC AgICAgICAgICAgICAgICAgICAgICAgICAgICAgICAg ICAgICAgICAgICAgICAgICAgICAgICAgICAgICAgICAgICAgICAgICAgICAgICAgDQogICAgICAgICAg ICAgICAgICAgICAgICAgICAgICAgICAgICAgICAgICAgICAgICAgICAgICAgICAgICAgICAgICAgICAg ICAgICAgICAgICAgICAgICAgICAgICAgICAgICAgDQ ogICAgICAgICAgICAgICAgICAgICAgICAgICAgICAgICAgICAgICAgICAgICAgICAgICAgICAgICAgIC AgICAgICAgICAgICAgICAgICAgICAgICAgICAgICAgICAgICAgICAgDQogICAgICAgICAgICAgICAgIC AgICAgICAgICAgICAgICAgICAgICAgICAgICAgICAg LEMyOCJnGWKxKCRuJAOwOQUnVSHaLNSyNHXwEHJdYMVxVQKuOMBnAYRzIUZzKVQtGWZzPJm3H4ujCPJb NOXkSK1rKFz1Os4+FBgVNdElMWW1ixSmkD2BAE3is8KgLQoqUKOyg9AcJKp5HE0YLXZzTNsgUV7PNKcq my9FLLAqOAXarCWFs6hyArUnWUT9WHZgVtgyYI0DZQ UyF7scgxGlUOQaQNKEQBonYIEYCHbsYAYSEXWpVRZaOiZxUeXvTZUuPRJmLCNVAF6HIgSdN1AznT75AQ YNCj4+DHvjwvLgRxtQByS3NNTpi3CoHRs5GI3FMNYbXsqdw9FqFqUxQTKWYEnqVU7ZLBT7KIA6QZPhPi 0TZZAhR938izJhLQ3MUa2RTwIsDJ2qif8KOyYaELTh TgtWChm9TJebZY6GmMAgWAeFa08ruYv0biSqcYCOESE4zGOMOARrbPYvvUbcPWBWGyIpnXT5QaE7PyDe DrKfRTV2RzbeTS0hSZavNS8AMMY7GKmbMPHqBULiQ3hZKcIaKXAxZIUjdCrmVP0QYuDwD1CojpQwoKIg NSAwIFINCj4+HFziceQeOrkZFkL4BPItj6KnURw8MB 7ZMJOxNCzbQS5YWVLfsY3zUAijZT4NNwBmEfEsUYCOSlBzA72fhGZtPRw9Q1LtPsHbSYDtPrfuGQUcML wvTmFtZXMgWyBdDQogID4+ID4+EXtzVO0LQOhvsvRpYCBzMy0ZKNRpFGPnAO8fQKPhXUJrR7D9gNqkKI NFDuLzI1feohmzUV2tQPJyD224aPrtvmIvOJB4RAMt Ga2XRWYnLUJ3KUTeoLIzLyQwHOCSCKdeIF7RsXMdJVJ3fN8lEVbcTUDuWESlC5oHBvIlpVkmQN31sVdu bnVsbCBdDQo+Lx8WGS5dw0SvLNp6oyZaPBdnNHE0DGsiNFYqLCUfACGwCPM0XMP6COMHYfAgIBOiNFPi DHxsDSJeRCChla2OHEEkPMYcVNJeQWHaYPUaIRKeLW msQSXiOWM6KVPqHEGdKHAvQZ9YSbCuZQBwHMTqXAbeHQPzWVAipe3FSBSoKQHxPws2VSKuSARyZHCvLP nfDGNuYBD0LZj4VZZyABXlZQ4PEbFuAGFdDJQ4BaGkYEGfYUIbge9JHZEsPAViVdY0CFJbLAUiJPPrSV cfPVXqBSM1CSO3HMHfWTGmNP0ALuEsICTpKIUfKMxi CVEwGSPruu0NWZWiDNUhJzPdNaHvPEOqBJScSKwiKJRdVVBwZdY1BFPwSPZnGJ1AAnXlSWZpPXR7HROt MEAdNUQxzf1OULPsZWIbGRw7RDKuHLKmCRYiRAhoTLXbCYZ2VYW8SCZnTLCqYJ8KMuGyNVMzKPM2RWCe IELgUMEkxc5UIMAyZKWgHvnaRdGnLHPvRTMmCDelPR FtRDU7ZIHyRXLnQVUiIJ0EMnMcDDNnFCleQZOlRSHaWIGxnf8XPMQmENUlBYT6VvTbZYLqJTMkTZthFP SgFXM5VkH3DHXlSFDiGV4JBeCvGHFvKYe9BuBfCHOzBBUrti3IWGMaEIWiDEK6FgHhGCLrSSRnZRsbJH RyKJOqKGf3JRLoUVXlDX9GNhDyKSYpXeO9LwYdPXAm OIUjgk1TETKxKZIcBmF8FiVaMUKvLVGiXRvqRGXjEJKpOMq4KSWyQCFpLD6AMzAaTNTlTaA0LWViADLc ZWKlmx8OCJEdVGYfHcglWyGpZVEiVDQnSVumLNYjSMEsYZX8BYAhMWAaOQ4FNoXaBJJgNfBaEIIbNDNl DGVntj5LABNlIAImVRUuLIBxWPKvLPTzFHgqGUTqKX Q7Asa0YEWnDIXdTW6RDgSiUXDoEgC2VMHjYMRpDOKfrs4EGBLqFZDnMuC2CwUmFDKoDXVgPYieSYNkPG A9FrB1RLJiFMWmFU1UNsSlXCZyJlK3QCaaKRNbARZims9EiTWvdOdgst0CJAzJWv0LlGlmQOD0QXisIt 3dzUZwPzIpABEYVr4DiwXtCYAeWUVOJUtzCNDgFKMq BUE3KAneUaJ5DAVcYOCpSgYtMTM9MRP3GHy2Wzj1AmL5TtZfPLo3P1I2Vhq5VlAgKQMmVJQ2EeqbBzXa OTUzOTQ+LP8sMWl+Xx9Io1PjroB2ldUmMGncUtb6Fh6ZTSWZR5KSHu== ID Date Data Source [id number] 11/15/2020 07:26:24 PM [facility] Value Range Interpretation Code Description Data Lou rce(s) Supporting Document(s) Glucose [Mass/volume] in Capillary blood by Glucometer 109 mg/dL 70- 140 [facility] ID Date Data Source [id number] 11/15/2020 04:11:20 PM [facility] Value Range Interpretation Code Description Data Lou rce(s) Supporting Document(s) Glucose [Mass/volume] in Capillary blood by Glucometer 111 mg/dL 70- 140 [facility] ID Date Data Source [id number] 11/15/2020 04:23:03 PM [facility] Value Range Interpretation Code Description Data Lou rce(s) Supporting Document(s) Albumin [Mass/volume] in Serum or Plasma by Bromocresol green (BCG) dye binding method 3.3 g/dL 3.5-5.2 [facility] Bilirubin.total [Mass/volume] in Serum or Plasma 1.9 mg/dL <1.2 H [facility] Bilirubin.direct [Mass/volume] in Serum or Plasma 1.1 mg/dL <0.3 H [facility] Alkaline phosphatase [Enzymatic activity/volume] in Serum or Plasma 135 U/L 40-129 H [facility] Aspartate aminotransferase [Enzymatic activity/volume] in Serum or Plasma 267 U/L <40 H [facility] Alanine aminotransferase [Enzymatic activity/volume] in Seru m or Plasma 136 U/L <41 H [facility] Protein [Mass/volume] in Serum or Plasma 5.9 g/dL 6.4-8.3 L [facility] ID Date Data Source [id number] 11/15/2020 05:07:41 PM [facility] Value Range Interpretation Code Description Data Lou rce(s) Supporting Document(s) Leukocytes [#/volume] in Blood by Automated count 9.0 10*3/uL 4-10 [facility] Erythrocytes [#/volume] in Blood by Automated count 3.38 10*6/uL 4.6- 6.1 L [facility] Hemoglobin [Mass/volume] in Blood 9.0 g/dL 13.5-18 L [facility] Hematocrit [Volume Fraction] of Blood by Automated count 27.3 % 4 1-53 L [facility] Erythrocyte mean corpuscular volume [Entitic volume] by Auto mated count 80.8 fL 80-96 [facility] Erythrocyte mean corpuscular hemoglobin [Entitic mass] by Automated count 26.7 pg 27-33 L [facility] Erythrocyte mean corpuscular hemoglobin concentration [Mass/volume] by Automated count 33.0 g/dL 32.0-36.0 [facility] Erythrocyte distribution width [Ratio] by Automated count 18.6 % 11.5-14.5 H [facility] Platelets [#/volume] in Blood by Automated count 124 10*3/uL 150-400 L [facility] Confirmed Differential cell count method - Blood [facility] Neutrophils/100 leukocytes in Blood by Automated count 76 % [facility] Lymphocytes/100 leukocytes in Blood by Automated count 6 % [facility] Monocytes/100 leukocytes in Blood by Automated count 14 % [facility] Eosinophils/100 leukocytes in Blood by Automated count 3 % [facility] Basophils/100 leukocytes in Blood by Automated count 1 % [facility] Neutrophils [#/volume] in Blood by Automated count 6.78 10*3/uL 1.8-7 .0 [facility] Lymphocytes [#/volume] in Blood by Automated count 0.56 10*3/uL 1.2-4 .0 L [facility] Monocytes [#/volume] in Blood by Automated count 1.26 10*3/uL 0-0.8 H [facility] Eosinophils [#/volume] in Blood by Automated count 0.29 10*3/uL 0-0.5 [facility] Basophils [#/volume] in Blood by Automated count 0.06 10*3/uL 0-0.2 [facility] Nucleated erythrocytes/100 leukocytes [Ratio] in Blood by Automated count 0 /100{WBCs} 0-0 [facility] ID Date Data Source [id number] 11/15/2020 04:56:38 PM [facility] Name Value Range Interpretation Code Description Data Lou rce(s) Supporting Document(s) Hepatitis C virus Ab [Presence] in Serum or Plasma by Immuno assay Non Reactive [facility] No serological evidence of active infect ion. If recent exposure is suspected, test for HCV RNA. ID Date Data Source [id number] 11/15/2020 07:13:54 AM [facility] Name Value Range Interpretation Code Description Data Lou rce(s) Supporting Document(s) Bicarbonate [Moles/volume] in Serum 19 mmol/L 22-29 L [facility] Chloride [Moles/volume] in Serum or Plasma 102 mmol/L 98-107 [facility] Creatinine [Mass/volume] in Serum or Plasma 0.69 mg/dL 0.70-1.20 [facility] Glucose [Mass/volume] in Serum or Plasma 112 mg/dL 70-140 [facility] Potassium [Moles/volume] in Serum or Plasma 3.9 mmol/L 3.4-5.1 [facility] Sodium [Moles/volume] in Serum or Plasma 130 mmol/L 136-145 [facility] Urea nitrogen [Mass/volume] in Serum or Plasma 13 mg/dL 6-20 [facility] Anion gap 3 in Serum or Plasma 9 mmol/L 8-15 [facility] Osmolality of Serum or Plasma by calculation 270 mosm/kg 275-300 [facility] Creatinine/Urea nitrogen [Mass Ratio] in Serum or Plasma 19 [facility] Calcium [Mass/volume] in Serum or Plasma 8.2 mg/dL 8.6-10.0 [facility] Glomerular filtration rate/1.73 sq M pre dicted among non-blacks [Volume Rate/Area] in Serum or Plasma by Creatinine-based formula (MDRD) >6 0 [facility] Glomerular filtration rate/1.73 sq M pre dicted among blacks [Volume Rate/Area] in Serum or Plasma by Creatinine-based formula (MDRD) >60 [facility] ID Date Data Source [id number] 11/15/2020 07:47:[address] [facility] Name Value Range Interpretation Code Description Data Lou e(s) Supporting Document(s) Leukocytes [#/volume] in Blood by Automated count 7.5 10*3/uL 4-10 [facility] Erythrocytes [#/volume] in Blood by Automated count 3.25 10*6/uL 4.6- 6.1 [facility] Hemoglobin [Mass/volume] in Blood 8.5 g/dL 13.5-18 L [facility] Hematocrit [Volume Fraction] of Blood by Automated count 26.2 % 4 1-53 [facility] Erythrocyte mean corpuscular volume [Entitic volume] by Auto mated count 80.6 fL 80-96 [facility] Erythrocyte mean corpuscular hemoglobin [Entitic mass] by Automated count 26.2 pg 27-33 L [facility] Erythrocyte mean corpuscular hemoglobin concentration [Mass/volume] by Automated count 32.5 g/dL 32.0-36.0 [facility] Erythrocyte distribution width [Ratio] by Automated count 18.5 % 11.5-14.5 H [facility] Platelets [#/volume] in Blood by Automated count 123 10*3/uL 150-400 L [facility] Confirmed Differential cell count method - Blood [facility] Neutrophils/100 leukocytes in Blood by Automated count 72 % [facility] Lymphocytes/100 leukocytes in Blood by Automated count 10 % [facility] Monocytes/100 leukocytes in Blood by Automated count 13 % [facility] Eosinophils/100 leukocytes in Blood by Automated count 4 % [facility] Basophils/100 leukocytes in Blood by Automated count 1 % [facility] Neutrophils [#/volume] in Blood by Automated count 5.47 10*3/uL 1.8-7 .0 [facility] Lymphocytes [#/volume] in Blood by Automated count 0.72 10*3/uL 1.2-4 .0 L [facility] Monocytes [#/volume] in Blood by Automated count 0.97 10*3/uL 0-0.8 H [facility] Eosinophils [#/volume] in Blood by Automated count 0.32 10*3/uL 0-0.5 [facility] Basophils [#/volume] in Blood by Automated count 0.05 10*3/uL 0-0.2 [facility] Nucleated erythrocytes/100 leukocytes [Ratio] in Blood by Automated count 0 /100{WBCs} 0-0 [facility] ID Date Data Source [id number] 11/15/2020 12:33:23 PM [facility] Name Value Range Interpretation Code Description Data Lou rce(s) Supporting Document(s) Phosphate [Mass/volume] in Serum or Plasma 2.4 mg/dL 2.5-4.5 [facility] ID Date Data Source [id number] 11/14/2020 11:16:15 PM [facility] Name Value Range Interpretation Code Description Data Lou rce(s) Supporting Document(s) [facility] GUBLLt7eNcRUZcHz83/INHnlMHDyw1TrNYyxXHp4QFjfUTXcS8JlAMM0iB4nBUM5BOyDQyMpDaBoPbO2 lbm NdHpnBGhDiAEDeFbsQIrRrQRlcGnxpvEVkDH8JeCV1RVOrY65lDNXiOPXsW2QqPFX7WxO+Qg2EHJRwgU EsZO7HDfuM2J9lDfzNZk6+8f3BOY10gvjEnfe5lQUJHlMnIKJ2Qa5qb8TA7N6cUG+K7j68T8/DpirDL6 7bulOClCNobg4tet0mv0wOXSD+60icjOZLbrS03+zP XPGJ1L79+9/UvJvnzrrN/2SdyAOuEztR+UD+p6e/mpKRqle3hJU0zGylNn+6TVSop61ALwXP71Rvw+ri d6U9L2/PjkOAdN1KDRL9Ndo7FjN3hPZllZSYzilRd0wMf+XVn9CmcW9G5jLhtIWFlIMMekMy7wTDllid eqzAfWvG5djRNJJviEJmaDFCDN8Uceaf7BaOxpP0d8 E+pR2y6EQ+cs63qrPfb7WiYTboawQCae7uMmfwrB6P6XVSTe1ODwdGbLOhaF6luSMXr5A+vxYt1Mg+zN P73rOzfu6rgIv4RymP6toaWJzal7WV+7jwyjo8mW5xS+gK1K91J4zEgvb99otOuZTklbwT37W73UbFcg SoXhhZw1RPKCqIsAIox+nkIrEKSbix130c4XQxxmle yzJbnPfZTdpbsjhUGKulOs/+uFhJ4iS+NSd8hDAnZheUN/HWJI4xq+/toh4lWSTAGAq6HFaHN5aEabpD C1vnMyMIjxjGLvjkpRNMfRc3sVGtAAareEPq4SBO0yirto4gq4QpH4mc8IEiJm4ZtBourAI/HWrLLkrQ jQyoa6kbARt6GcmL5aVwDJTtH40/BsW0l2AXOOvDt9 [id number]+Mars [file] [id number] ID Date Data Source [id number] 11/15/2020 12:29:07 AM [facility] Name Value Range Interpretation Code Description Data Lou rce(s) Supporting Document(s) Leukocytes [#/volume] in Blood by Automated count 7.5 10*3/uL 4-10 [facility] Erythrocytes [#/volume] in Blood by Automated count 3.11 10*6/uL 4.6- 6.1 L [facility] Hemoglobin [Mass/volume] in Blood 8.0 g/dL 13.5-18 L [facility] Hematocrit [Volume Fraction] of Blood by Automated count 24.9 % 4 1-53 L [facility] Erythrocyte mean corpuscular volume [Entitic volume] by Auto mated count 80.0 fL 80-96 [facility] Erythrocyte mean corpuscular hemoglobin [Entitic mass] by Automated count 25.8 pg 27-33 L [facility] Erythrocyte mean corpuscular hemoglobin concentration [Mass/volume] by Automated count 32.3 g/dL 32.0-36.0 [facility] width [Ratio] by Automated count 18.7 % 11.5-14.5 H [facility] Platelets [#/volume] in Blood by Automated count 120 10*3/uL 150-400 L [facility] Confirmed Differential cell count method - Blood [facility] Neutrophils/100 leukocytes in Blood by Automated count 71 % [facility] Lymphocytes/100 leukocytes in Blood by Automated count 11 % [facility] Monocytes/100 leukocytes in Blood by Automated count 13 % [facility] Eosinophils/100 leukocytes in Blood by Automated count 4 % [facility] Basophils/100 leukocytes in Blood by Automated count 1 % [facility] Neutrophils [#/volume] in Blood by Automated count 5.34 10*3/uL 1.8-7 .0 [facility] Lymphocytes [#/volume] in Blood by Automated count 0.83 10*3/uL 1.2-4 .0 [facility] Monocytes [#/volume] in Blood by Automated count 0.96 10*3/uL 0-0.8 H [facility] Eosinophils [#/volume] in Blood by Automated count 0.32 10*3/uL 0-0.5 [facility] Basophils [#/volume] in Blood by Automated count 0.06 10*3/uL 0-0.2 [facility] Nucleated erythrocytes/100 leukocytes [Ratio] in Blood by Automated count 0 /100{WBCs} 0-0 [facility] ID Date Data Source [id number] 11/14/2020 03:50:[address] [facility] Name Value Range Interpretation Code Description Data Lou rce(s) Supporting Document(s) History and Physical [facility] GTXMYm3fEeQUKrZz51/ZMOdvGXLpj4WrZRrbUPs3QExeJGWiQ5AsNIO4yA3aXVE4DVlAPsEqCvCuAxY4 lbm [file] AgICAgICAgICAgICAgICAgICAgICAgICAgICAgICAgICAgICAgICAgICAgICAgICAgICAgICAgICAgIC AgICAgICAgICAgICAgICAgICAgICAgICAgICAgICAgICAgICAgICANCiAgICAgICAgICAgICAgICAgIC AgICAgICAgICAgICAgICAgICAgICAgICAgICAgICAg ICAgICAgICAgICAgICAgICAgICAgICAgICAgICAgICAgICAgICAgICAgICAgICAgICANCiAgICAgICAg ICAgICAgICAgICAgICAgICAgICAgICAgICAgICAgICAgICAgICAgICAgICAgICAgICAgICAgICAgICAg ICAgICAgICAgICAgICAgICAgICAgICAgICAgICAgIC ANCiAgICAgICAgICAgICAgICAgICAgICAgICAgICAgICAgICAgICAgICAgICAgICAgICAgICAgICAgIC AgICAgICAgICAgICAgICAgICAgICAgICAgICAgICAgICAgICAgICAgICANCiAgICAgICAgICAgICAgIC AgICAgICAgICAgICAgICAgICAgICAgICAgICAgICAg ICAgICAgICAgICAgICAgICAgICAgICAgICAgICAgICAgICAgICAgICAgICAgICAgICAgICANCiAgICAg ICAgICAgICAgICAgICAgICAgICAgICAgICAgICAgICAgICAgICAgICAgICAgICAgICAgICAgICAgICAg ICAgICAgICAgICAgICAgICAgICAgICAgICAgICAgIC AgICANCiAgICAgICAgICAgICAgICAgICAgICAgICAgICAgICAgICAgICAgICAgICAgICAgICAgICAgIC AgICAgICAgICAgICAgICAgICAgICAgICAgICAgICAgICAgICAgICAgICAgICANCiAgICAgICAgICAgIC AgICAgICAgICAgICAgICAgICAgICAgICAgICAgICAg ICAgICAgICAgICAgICAgICAgICAgICAgICAgICAgICAgICAgICAgICAgICAgICAgICAgICAgICANCiAg ICAgICAgICAgICAgICAgICAgICAgICAgICAgICAgICAgICAgICAgICAgICAgICAgICAgICAgICAgICAg ICAgICAgICAgICAgICAgICAgICAgICAgICAgICAgIC AgICAgICANCiAgICAgICAgICAgICAgICAgICAgICAgICAgICAgICAgICAgICAgICAgICAgICAgICAgIC AgICAgICAgICAgICAgICAgICAgICAgICAgICAgICAgICAgICAgICAgICAgICAgICANCjw/eRTrW6bsaZ OaimW7V6hmRr7TRy8WDE6yz1PlDLKtORdmarMxLonW BpOfBGZtDvpPPcq5JNlyWG5GzWXtQ2EcH8BmNVwfUW4BEENpAUFdmCGjXTGpZJRvRbW6IMYkSTjlMO8W nCLtHFheFYPcOCOfCyLwAYIcGNDcYFBfGQTiDHUIRENvFXOoLqNkMTeeQP4Ol1PeeJF3MWo+Ts6QYF3m r2DlTUcxVsNzVS6fpu4KDVfXCdYqW0FcmlV1NRE9NI YkZb2GURTlCLJmzOFmTmHhHWQWWjZeE7LfiM69PTEAKx4+PUadkaUkGjlELzY9ZTVnq2JzGPd4ZN6ZSR IkPAw5dWEiFWHYWAU5HOh2zxUbMYVykBRtXBWSIDYpiFX3QhU7UnGnWvArZDN3YGOlFK7pOJitVV6PZM N3TUapVOJzJZLxG8mCQnXnWDSfDISexNokTW7CHyCv R1ZahrZwpQHzHgDkJARFOd2+NQazsoSyDpuGOdJ7KCCtv4KhVIz0SA1ECJTcQVtxJJ6IEYFbmS4dDIle XN2LAcIzHEHlJOKURkKtS25ljWBdPPv1R2OlFdTfYQGvIfngPBFpXVqbUhYpTBQwCsLgPSppBU6+ID4+ EEspOV6JTGxiqyDuDASwJz1KUDZjMFUeRL0jBLPfAE HeO4I9hPkvZQPCObRrK3csbcofYP3vBWUqZ499xIatcwYaUUQ1YZLjBc2ARPSsVBO4JRJlmCGcNdVfYI YURIwwAP4XcCTtBQH0tG2gQClzTXZvEVYuL1oWOyBaiAreIS89sPqfupYidXDlTLg+Xj2BHR2fg0TzSN l4kiUdPJlfHNJ2LLzcOJZuGBBmRGDvQVM2HXD6FSLJ MfSeEDIbWBVcRMaoKTJmAIMrex7AKLJgRIQzEFW8SEQkJRKjDYMrHRknRARnRZX5DjLdQOJkUONgTL5P CyPjLBNiMNImQRavIOSdKZOtuz6AFGTbJIGmVXF0MWCaBACnXGEjRUjvDNRcUJQ9KXjkMMJxXKUeEP7N HcFiSPCmYPa7HQWkKSZcZPNwyl9AYLGlOZGjBzy2DS GcSHOgLVDcVJieVZWnRIRtYFH8UIOcFNMuLE2PXdZwMSDyLPBsRkIuSYVpSJXgoc5VPMBkLFLkSfhfVc JgKEHtPBNqKOfsSQAbPQKbNUA9PKYqBPVdJZ1RHdZxTFSkOEUrOZAoDNUjUUTeph5UBMVxBBGvHSQ8Uz XoOXWdRLOdPLmlWTFrDJV2WSX4PIShDPQwIN0GBmYi QHVqOLB7DRHiNUAvUDTokd8IQWApOSBoPoviInPxVAWkSYJkWZwrRYAaOGB8HIg5EMZlBOGjAM3AHaVi AMIeUUwuEIlqZAEpELAddv1SDYQnMTSkHOU0LcNcZDJqRPFvKLtmBAYpLAC1ZfN1ZUHcYJVhOJ3CAnCk CAVnCWt3YltgPHLrVLKidx3AXYYeOMTlXNTjIOCmDQ RoULPmSBbcINYeSRXrZUp4JLOmGSNcAB2XBiFkMCTtAyP3WQZzEWWjJLLchd7IBRGfQVTgQGu5VELqSK YaGUSxUFwyUFHaFWDgTpDqYHLaFFWtFK8OQdRsUZBzAjJ0OgjwPAXsMCDuku0DOPBgMPCjNzt7DiHbYI KmEDAgRXtbDQYaSSQsJUX6LRHjSBJyWB6QVfUaHGSt OsKiNbLiRESlOMWbbb2EHDNbYFWiLGNgJqLoRTKwMZHoOLriAMSfIPB3Hmi2XFJvSBEfSN0HQtCbBUHp QnG3ZrObBKEwVUHzgy2AJCEkFMHsRUFaSCDkQNKkPRCgDWbpTLBtWAN0WDk9HAUgSOIrMR5JIsNfEGCa MgT8VDHmAINcOHUcam0UKIXkPBBhZeN3ZYYqPXJbRO YbYBi1smKujERqOFp4ET1ZG1FecmCwWtdDTj7Fr056TEJ2HWQiQj3OM6flRk4wEYRxGKEDPl8RTLx5Ya IkOJE8PFI9PyLsHvU2KhO4FrnzI5CnRbArKoL2QWX+IXhfSwT7RuJqMImdNCShUDE2UXqrQqM6LdYaJn RcSLUoTT1yPEUZAi5+VUhddWTjqHycUTYPHtR5AYG4JTnvJKWBNf0Z ID Date Data Source [id number] 11/14/2020 05:33:49 PM EDT [facility] Name Value Range Interpretation Code Description Data Lou rce(s) Supporting Document(s) Albumin [Mass/volume] in Serum or Plasma by Bromocresol green (BCG) dye binding method 3.2 g/dL 3.5-5.2 L [facility] Bilirubin.total [Mass/volume] in Serum or Plasma 2.1 mg/dL <1.2 H [facility] Calcium [Mass/volume] in Serum or Plasma 7.9 mg/dL 8.6-10.0 L [facility] Chloride [Moles/volume] in Serum or Plasma 100 mmol/L 98-107 [facility] Creatinine [Mass/volume] in Serum or Plasma 0.64 mg/dL 0.70-1.20 L [facility] Glucose [Mass/volume] in Serum or Plasma 94 mg/dL 70-140 [facility] Alkaline phosphatase [Enzymatic activity/volume] in Serum or Plasma 123 U/L 40-129 [facility] Potassium [Moles/volume] in Serum or Plasma 3.7 mmol/L 3.4-5.1 [facility] Protein [Mass/volume] in Serum or Plasma 5.8 g/dL 6.4-8.3 L [facility] Sodium [Moles/volume] in Serum or Plasma 130 mmol/L 136-145 L [facility] Aspartate aminotransferase [Enzymatic activity/volume] in Serum or Plasma 325 U/L <40 H [facility] Urea nitrogen [Mass/volume] in Serum or Plasma 13 mg/dL 6-20 [facility] Osmolality of Serum or Plasma by calculation 269 mosm/kg 275-300 L [facility] Creatinine/Urea nitrogen [Mass Ratio] in Serum or Plasma 21 [facility] Bicarbonate [Moles/volume] in Serum 21 mmol/L 22-29 L [facility] Alanine aminotransferase [Enzymatic activity/volume] in Seru m or Plasma 127 U/L <41 H [facility] Anion gap 3 in Serum or Plasma 9 mmol/L 8-15 [facility] Glomerular filtration rate/1.73 sq M pre dicted among non-blacks [Volume Rate/Area] in Serum or Plasma by Creatinine-based formula (MDRD) >6 0 [facility] Glomerular filtration rate/1.73 sq M pre dicted among blacks [Volume Rate/Area] in Serum or Plasma by Creatinine-based formula (MDRD) >60 [facility] ID Date Data Source [id number] 11/14/2020 05:33:49 PM [facility] Name Value Range Interpretation Code Description Data Lou rce(s) Supporting Document(s) Magnesium [Mass/volume] in Serum or Plasma 2.5 mg/dL 1.6-2.6 [facility] ID Date Data Source [id number] 11/14/2020 05:33:49 PM [facility] Value Range Interpretation Code Description Data Lou rce(s) Supporting Document(s) Phosphate [Mass/volume] in Serum or Plasma 1.3 mg/dL 2.5-4.5 [facility] ID Date Data Source [id number] 11/14/2020 06:06:06 PM [facility] Value Range Interpretation Code Description Data Lou rce(s) Supporting Document(s) Leukocytes [#/volume] in Blood by Automated count 7.8 10*3/uL 4-10 [facility] Erythrocytes [#/volume] in Blood by Automated count 3.15 10*6/uL 4.6- 6.1 [facility] Hemoglobin [Mass/volume] in Blood 8.3 g/dL 13.5-18 L [facility] Hematocrit [Volume Fraction] of Blood by Automated count 25.4 % 4 1-53 [facility] Erythrocyte mean corpuscular volume [Entitic volume] by Auto mated count 80.6 fL 80-96 [facility] Erythrocyte mean corpuscular hemoglobin [Entitic mass] by Automated count 26.4 pg 27-33 L [facility] Erythrocyte mean corpuscular hemoglobin concentration [Mass/volume] by Automated count 32.8 g/dL 32.0-36.0 [facility] Erythrocyte distribution width [Ratio] by Automated count 18.5 % 11.5-14.5 H [facility] Platelets [#/volume] in Blood by Automated count 116 10*3/uL 150-400 L [facility] Confirmed Differential cell count method - Blood [facility] Neutrophils/100 leukocytes in Blood by Automated count 76 % [facility] Lymphocytes/100 leukocytes in Blood by Automated count 8 % [facility] Monocytes/100 leukocytes in Blood by Automated count 13 % [facility] Eosinophils/100 leukocytes in Blood by Automated count 2 % [facility] Basophils/100 leukocytes in Blood by Automated count 1 % [facility] Neutrophils [#/volume] in Blood by Automated count 5.95 10*3/uL 1.8-7 .0 [facility] Lymphocytes [#/volume] in Blood by Automated count 0.63 10*3/uL 1.2-4 .0 L [facility] Monocytes [#/volume] in Blood by Automated count 1.05 10*3/uL 0-0.8 H [facility] Eosinophils [#/volume] in Blood by Automated count 0.19 10*3/uL 0-0.5 [facility] Basophils [#/volume] in Blood by Automated count 0.04 10*3/uL 0-0.2 [facility] Nucleated erythrocytes/100 leukocytes [Ratio] in Blood by Automated count 0 /100{WBCs} 0-0 [facility] ID Date Data Source [id number] [facility] Value [facility] Interpretation Code Description Data Lou rce(s) Supporting Document(s) Ammonia [Moles/volume] in Plasma 86 umol/L 16-60 H [facility] ID Date Data Source [id number] 11/14/2020 08:19:36 AM [facility] Name Value Range Interpretation Code Description Data Lou rce(s) Supporting Document(s) Bicarbonate [Moles/volume] in Serum 21 mmol/L 22-29 L [facility] Chloride [Moles/volume] in Serum or Plasma 99 mmol/L 98-107 [facility] Confirmed Creatinine [Mass/volume] in Serum or Plasma 0.65 mg/dL 0.70-1.20 L [facility] Glucose [Mass/volume] in Serum or Plasma 97 mg/dL 70-140 [facility] Potassium [Moles/volume] in Serum or Plasma 3.0 mmol/L 3.4-5.1 [facility] Confirmed Sodium [Moles/volume] in Serum or Plasma 130 mmol/L 136-145 L [facility] Confirmed Urea nitrogen [Mass/volume] in Serum or Plasma 15 mg/dL 6-20 [facility] Anion gap 3 in Serum or Plasma 11 mmol/L 8-15 [facility] Confirmed Osmolality of Serum or Plasma by calculation 271 mosm/kg 275-300 L [facility] Confirmed Creatinine/Urea nitrogen [Mass Ratio] in Serum or Plasma 22 [facility] Calcium [Mass/volume] in Serum or Plasma 7.8 mg/dL 8.6-10.0 [facility] Glomerular filtration rate/1.73 sq M pre dicted among non-blacks [Volume Rate/Area] in Serum or Plasma by Creatinine-based formula (MDRD) >6 0 [facility] Glomerular filtration rate/1.73 sq M pre dicted among blacks [Volume Rate/Area] in Serum or Plasma by Creatinine-based formula (MDRD) >60 [facility] ID Date Data Source [id number] 11/14/2020 08:31:17 AM EDT [facility] Name Value Range Interpretation Code Description Data Lou rce(s) Supporting Document(s) Leukocytes [#/volume] in Blood by Automated count 6.9 10*3/uL 4-10 [facility] Erythrocytes [#/volume] in Blood by Automated count 2.97 10*6/uL 4.6- 6.1 [facility] Hemoglobin [Mass/volume] in Blood 7.9 g/dL 13.5-18 [facility] Hematocrit [Volume Fraction] of Blood by Automated count 23.7 % 4 1-53 [facility] Erythrocyte mean corpuscular volume [Entitic volume] by Auto mated count 79.8 fL 80-96 L [facility] Erythrocyte mean corpuscular hemoglobin [Entitic mass] by Automated count 26.5 pg 27-33 [facility] Erythrocyte mean corpuscular hemoglobin concentration [Mass/volume] by Automated count 33.2 g/dL 32.0-36.0 [facility] Erythrocyte distribution width [Ratio] by Automated count 18.9 % 11.5-14.5 H [facility] Platelets [#/volume] in Blood by Automated count 99 10*3/uL 150-400 L [facility] Confirmed Differential cell count method - Blood [facility] Neutrophils/100 leukocytes in Blood by Automated count 77 % [facility] Lymphocytes/100 leukocytes in Blood by Automated count 7 % [facility] Monocytes/100 leukocytes in Blood by Automated count 12 % [facility] Eosinophils/100 leukocytes in Blood by Automated count 3 % [facility] Basophils/100 leukocytes in Blood by Automated count 1 % [facility] Neutrophils [#/volume] in Blood by Automated count 5.45 10*3/uL 1.8-7 .0 [facility] Lymphocytes [#/volume] in Blood by Automated count 0.47 10*3/uL 1.2-4 .0 L [facility] Monocytes [#/volume] in Blood by Automated count 0.80 10*3/uL 0-0.8 [facility] Eosinophils [#/volume] in Blood by Automated count 0.18 10*3/uL 0-0.5 [facility] Basophils [#/volume] in Blood by Automated count 0.03 10*3/uL 0-0.2 [facility] Nucleated erythrocytes/100 leukocytes [Ratio] in Blood by Automated count 0 /100{WBCs} 0-0 [facility] ID Date Data Source [id number] 11/14/2020 11:09:27 AM [facility] Value Range Interpretation Code Description Data Lou rce(s) Supporting Document(s) Magnesium [Mass/volume] in Serum or Plasma 2.6 mg/dL 1.6-2.6 [facility] ID Date Data Source [id number] 11/14/2020 11:09:27 AM [facility] Value Range Interpretation Code Description Data Lou rce(s) Supporting Document(s) Phosphate [Mass/volume] in Serum or Plasma 1.6 mg/dL 2.5-4.5 [facility] ID Date Data Source [id number] 11/13/2020 11:52:58 PM [facility] Value Range Interpretation Code Description Data Lou rce(s) Supporting Document(s) ABO and Rh group [Type] in Blood [facility] Blood bank comment [facility] ID Date Data Source [id number] 11/13/2020 09:59:28 PM EDT [facility] Name Value Range Interpretation Code Description Data Lou rce(s) Supporting Document(s) Sodium [Moles/volume] in Blood 132 mmol/L 136-145 L [facility] Potassium [Moles/volume] in Blood 3.1 mmol/L 3.4-5.1 [facility] Chloride [Moles/volume] in Blood 97 mmol/L 98-107 [facility] Carbon dioxide, total [Moles/volume] in Blood 21 mmol/L 22-29 [facility] Calcium.ionized [Moles/volume] in Blood 1.19 mmol/L 1.13-1.32 [facility] Glucose [Mass/volume] in Blood 115 mg/dL 70-140 [facility] Urea nitrogen [Mass/volume] in Blood 15 mg/dL 6-20 [facility] Creatinine [Mass/volume] in Blood 0.7 mg/dL 0.70-1.20 [facility] Hematocrit [Volume Fraction] of Blood 22 % 41-53 [facility] Hemoglobin [Mass/volume] in Blood by calculation 7.5 g/dL 13.5-18.0 [facility] ID Date Data Source [id number] 11/13/2020 09:59:[address] [facility] Name Value Range Interpretation Code Description Data Lou rce(s) Supporting Document(s) Leukocytes [#/volume] in Blood by Automated count 7.0 10*3/uL 4-10 [facility] Erythrocytes [#/volume] in Blood by Automated count 2.58 10*6/uL 4.6- 6.1 [facility] Hemoglobin [Mass/volume] in Blood 7.0 g/dL 13.5-18 [facility] Hematocrit [Volume Fraction] of Blood by Automated count 20.6 % 4 1-53 [facility] Called to and read back by Zeny cintron [employer] [id number] [place] 1471 Erythrocyte mean corpuscular volume [Entitic volume] by Auto mated count 79.5 fL 80-96 L [facility] Erythrocyte mean corpuscular hemoglobin [Entitic mass] by Automated count 27.1 pg 27-33 [facility] Erythrocyte mean corpuscular hemoglobin concentration [Mass/volume] by Automated count 34.0 g/dL 32.0-36.0 [facility] Erythrocyte distribution width [Ratio] by Automated count 19.9 % 11.5-14.5 H [facility] Platelets [#/volume] in Blood by Automated count 102 10*3/uL 150-400 L [facility] Differential cell count method - Blood [facility] Neutrophils/100 leukocytes in Blood by Automated count 78 % [facility] Lymphocytes/100 leukocytes in Blood by Automated count 7 % [facility] Monocytes/100 leukocytes in Blood by Automated count 13 % [facility] Eosinophils/100 leukocytes in Blood by Automated count 1 % [facility] Basophils/100 leukocytes in Blood by Automated count 1 % [facility] Neutrophils [#/volume] in Blood by Automated count 5.50 10*3/uL 1.8-7 .0 [facility] Lymphocytes [#/volume] in Blood by Automated count 0.47 10*3/uL 1.2-4 .0 L [facility] Monocytes [#/volume] in Blood by Automated count 0.89 10*3/uL 0-0.8 H [facility] Eosinophils [#/volume] in Blood by Automated count 0.09 10*3/uL 0-0.5 [facility] Basophils [#/volume] in Blood by Automated count 0.04 10*3/uL 0-0.2 [facility] Nucleated erythrocytes/100 leukocytes [Ratio] in Blood by Automated count 0 /100{WBCs} 0-0 [facility] ID Date Data Source [id number] 11/13/2020 10:08:20 PM [facility] Value Range Interpretation Code Description Data Lou rce(s) Supporting Document(s) Prothrombin time (PT) 16.6 s 12.5-14.9 H [facility] INR in Platelet poor plasma by Coagulation assay 1.32 [facility] Routine intensity oral anticoagulation I NR is typically 2.0-3.0. Target INR must be clinically individualized. ID Date Data Source [id number] 11/13/2020 10:17:51 PM [facility] Value Range Interpretation Code Description Data Lou rce(s) Supporting Document(s) Lipase [Enzymatic activity/volume] in Serum or Plasma 44 U/L 13-6 0 [facility] ID Date Data Source [id number] 11/13/2020 10:17:51 PM [facility] Value Range Interpretation Code Description Data Lou rce(s) Supporting Document(s) Albumin [Mass/volume] in Serum or Plasma by Bromocresol green (BCG) dye binding method 3.0 g/dL 3.5-5.2 [facility] Bilirubin.total [Mass/volume] in Serum or Plasma 1.7 mg/dL <1.2 H [facility] Calcium [Mass/volume] in Serum or Plasma 7.8 mg/dL 8.6-10.0 L [facility] Chloride [Moles/volume] in Serum or Plasma 97 mmol/L 98-107 L [facility] Creatinine [Mass/volume] in Serum or Plasma 0.66 mg/dL 0.70-1.20 L [facility] Glucose [Mass/volume] in Serum or Plasma 115 mg/dL 70-140 [facility] Alkaline phosphatase [Enzymatic activity/volume] in Serum or Plasma 127 U/L 40-129 [facility] Potassium [Moles/volume] in Serum or Plasma 3.1 mmol/L 3.4-5.1 L [facility] Protein [Mass/volume] in Serum or Plasma 5.5 g/dL 6.4-8.3 L [facility] Sodium [Moles/volume] in Serum or Plasma 128 mmol/L 136-145 [facility] Aspartate aminotransferase [Enzymatic activity/volume] in Serum or Plasma 189 U/L <40 H [facility] Urea nitrogen [Mass/volume] in Serum or Plasma 16 mg/dL 6-20 [facility] Osmolality of Serum or Plasma by calculation 269 mosm/kg 275-300 [facility] Creatinine/Urea nitrogen [Mass Ratio] in Serum or Plasma 24 [facility] Bicarbonate [Moles/volume] in Serum 22 mmol/L 22-29 [facility] Alanine aminotransferase [Enzymatic activity/volume] in Seru m or Plasma 74 U/L <41 H [facility] Anion gap 3 in Serum or Plasma 9 mmol/L 8-15 [facility] Glomerular filtration rate/1.73 sq M pre dicted among non-blacks [Volume Rate/Area] in Serum or Plasma by Creatinine-based formula (MDRD) >6 0 [facility] Glomerular filtration rate/1.73 sq M pre dicted among blacks [Volume Rate/Area] in Serum or Plasma by Creatinine-based formula (MDRD) >60 [facility] ID Date Data Source [id number] 11/16/2020 07:33:[address] [facility] Name Value Range Interpretation Code Description Data Lou rce(s) Supporting Document(s) ABO and Rh group [Type] in Blood [facility] Blood group antibody screen [Presence] in Serum or Plasma [facility] Performed at [facility], Raquel brody Geeta, [id number] ID Date Data Source [id number] 11/13/2020 03:31:00 PM EDT [facility] Name Value Range Interpretation Code Description Data Lou rce(s) Supporting Document(s) SARS coronavirus 2 RNA [Presence] in Res piratory specimen by TOYA with probe detection NEGATIVE [facility] This lab was ordered by [facility] a nd reported by [facility]. Procedure Social History Code Duration Value Status Description Data Source(s ) Alcohol intake 11/16/2020 12:00:00 AM EDT Current drinker of al cohol (finding) completed Current drinker of alcohol (finding) [facility] Tobacco use and exposure 11/14/2020 12:00:00 AM EDT Smokeless to bacco non-user completed Smokeless tobacco non-user [facility] Cigarette pack-years 11/14/2020 12:00:00 AM EDT UNK completed [facility] Cigarettes smoked current (pack per day) - Reported 11/15/19 12:00:00 AM EDT UNK completed [facility].5 [facility] Smoking 11/14/2020 12:00:00 AM EDT Smokes tobacco daily comple ashley Smokes tobacco daily [facility] [facility] Vital Signs ID Date Data Source UNK Name Value Range Interpretation Code Description Data Source(s) Diastolic blood pressure 78 mm[Hg] 78 mm[Hg] SUKI ([facility]) Body height 65 [in_i] 65 [in_i] SUKI ([facility]) Body mass index (BMI) [Ratio] 25.8 kg/m2 25.8 k g/m2 SUKI ([facility]) Systolic blood pressure 121 mm[Hg] 121 mm[Hg] A THENA ([facility]) Body weight 2480 [oz_av] 2480 [oz_av] SUKI ([facility]) ID Date Data Source [id number] 12/14/2020 04:10:[address] [facility] Name Value Range Interpretation Code Description Data Source(s) WEIGHT RECORDED 151.[address] [facility] Body height Measured 66 in 66 in [facility] TRANSFER FROM [facility] ID Date Data Source [id number] 12/01/2020 11:10:43 AM [facility] Name Value Range Interpretation Code Description Data Source(s) TRANSFER FROM [facility] Patient Treatment Plan of Care Planned Activity Planned Date Details Description Data Source (s) Lisinopril 5 MG Oral Tablet 12/12/2020 12:00:00 AM [facility] Thiamine 100 MG Oral Tablet 12/12/2020 12:00:00 AM [facility] Acetaminophen 325 MG Oral Tablet 12/12/2020 12:00:00 AM [facility] Acetaminophen 325 MG Oral Tablet 12/10/2020 04:46:26 PM [facility] Folic Acid 1 MG Oral Tablet 2020 12:00:00 AM [facility] Vitamin B 12 0.25 MG Oral Tablet 2020 12:00:00 AM [facility] pantoprazole 40 MG Delayed Release Oral Tablet 11/17/2020 12:00:00 AM [facility] Lisinopril 30 MG Oral Tablet [facility] duloxetine 60 MG Delayed Release Oral Capsule SUKI ([facility]) Clindamycin 300 MG Oral Capsule SUKI ([facility])
[2021-04-25] MEDS ORDERED: PANTOPRAZOLE 40MG VIAL (C9113 PER 1) IV ONE (11:50)
[2021-04-25] MEDS ORDERED: LORazepam 2 MG TAB PO PRN (11:50)
[2021-04-25] MEDS ORDERED: OXAZEPAM 15 MG CAP PO SCH (12:00)
[2021-04-25] MEDS ORDERED: PANTOPRAZOLE SODIUM 40 MG in D5W 50 ML IV SCH (12:00)
[2021-04-25 12:06] LABS: MEAN CORPUSCULAR HEMOGLOBIN 22.4 pg (27.0-33.0); MEAN CORPUSCULAR HGB CONC 27.2 g/dl (32.0-36.5); MEAN CORPUSCULAR VOLUME 82.4 fl (80.0-96.0); PLATELET COUNT, AUTOMATED 171 10^3/uL (150-450); WHITE BLOOD COUNT 3.9 10^3/uL (4.0-10.0)
[2021-04-25 12:08] LABS: HEMATOCRIT 20.6 % (42.0-52.0); HEMOGLOBIN 5.6 g/dl (13.5-17.5)
[2021-04-25 12:17] LABS: INR 1.25; PROTHROMBIN TIME 16.1 SECONDS (12.7-14.5)
[2021-04-25 12:40] LABS: ALT/SGPT 29 U/L (12-78); BILIRUBIN,DIRECT 0.3 MG/DL (0.0-0.2); BILIRUBIN,TOTAL 0.7 MG/DL (0.2-1.0); BLOOD UREA NITROGEN 5 MG/DL (7-18); CALCIUM LEVEL 8.5 MG/DL (8.5-10.1); CARBON DIOXIDE LEVEL 28 MEQ/L (21-32); CHLORIDE LEVEL 105 MEQ/L (98-107); GLOMERULAR FILTRATION RATE > 60.0 (>60); GLUCOSE, FASTING 104 MG/DL (70-100); POTASSIUM SERUM 3.6 MEQ/L (3.5-5.1); SODIUM LEVEL 141 MEQ/L (136-145); TOTAL PROTEIN 6.9 GM/DL (6.4-8.2)
[2021-04-25] MEDS ORDERED: LORazepam 2 MG/ML VIAL IV PRN ×2 (13:10→13:30)
[2021-04-25 13:12] LABS: RSV AMPLIFICATION NEGATIVE (NEGATIVE)
--- OUTSIDE RECORDS SUMMARY | 2021-04-25 13:55 | CCD ---
Author Author [facility] Organization [facility] Address Unknown Phone Unavailable Care Team Providers Care Corporate Counsel Name Role Phone MANUELA RANDLE DORCAS RPA-C [...] MANUELA DORCAS RPA-C Unavailable Unavailable RANDLE, MANUELA ODRCAS RPA-C Unavailable Unavailable RANDLE, MANUELA DORCAS RPA-C [...] Jaxon Unavailable Alexe MD, Jaxon Unavailable JAXON EPTERSEN [id number] Unavailable Unavailable GHASEMI, LAMONT MD Unavailable Unavailable [...] is protected by Article 27-F of the [facility] Public Health law. If you continue you may have access to information: Regarding HIV / AIDS; Provided by facilities licensed or operated by the [facility] Office of Mental Health; or Provided by the [facility] Office for People With Developmental Disabilities. If such information is present, then the following [facility] mandated warning applies: This information has [...] ) Propensity to adverse reactions PENICILLINS Penicillin [facility] Propensity to adverse reactions NAPROXEN NAPROXEN [facility] Propensity to adverse reactions IBUPROFEN Ibuprofen [facility] Propensity to adverse reactions DIPHENHYDRAMINE DIPHENHYDRAMINE [facility] Drug allergy AMOXICILLIN-POT CLAVULANATE AMOXICILLIN-POT CLAVULANATE [facility] Allergy to substance Allergy to substance Naproxen [facility]KI ([facility]) Allergy to substance Allergy to substance Ibuprofen [facility] ([facility]) Allergy to substance Allergy to substance Diphenhydramine Hcl BRONX ([facility]) Family History Family Member Name Family Member Gender Family Member Status Date o f Status Description Data Source(s) Unknown Unknown Problem MEDENT ([facility]) Encounters Encounter Providers Location Date Indications Data Source(s ) Outpatient Admitter: RYAN MORRISONReferrer: RYAN MORRISON 04/07/2021 12:00:00 AM EST 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 03/23/2021 12:00:00 AM [facility] Inpatient Attender: Antonio Lee antonieta: LAMONT GRAY MDAdmitter: LAMONT GRAY MDReferrer: LAMONT GRAY MD A-12/08/2020 12:00: 00 AM EDT - 12/12/2020 01:58:00 PM [facility] Patient discharged. Dorcas Randle, [facility]: [address] [place] [address], [facility] [address], [place] [address], Ph. Attender: DORCAS ISAACS [facility] Medical 11/25/2020 12:00:00 AM EDT [facility] ([facility]) Outpatient Attender: SOOLINDSAY RAMACHANDRAN . [id number] 11/17/2020 03:42:22 PM EDT [facility] Inpatient Attender: RON MILLER MDAttender: Jaxon Petersen MDAttender: JAXON PETERSEN [id number]: Bethanie Walls MDAttender: DONAL HUBBARD MDAttender: ALEX ZENDEJAS MDAdmitter: Bethanie Walls MDReferrer: DONAL HUBBARD MD [id number] 11/13/2020 12:00:00 AM EDT - 11/17/2020 05:29:00 PM EDT [facility] Patient discharged. Immunizations Vaccine Date Status Description Data Source(s) SARS-COV-2 (COVID-19) vaccine, UNSPECIFIED 10/30/2020 12:00:00 A M EDT completed 10/30/2020 [facility]KI ([facility]) COVID-19 VACCINE Todd 10/30/2020 12:00:00 AM EDT completed IDSIIS Vaccine Series Complete: YESThis Data wa s Submitted to [facility] Via [employer]. Medications Medication Brand Name Start Date Product Form Dose Route Admi nistrative Instructions Pharmacy Instructions Status Indications Reaction Description Data Source(s) Acetaminophen 325 MG Oral Tablet Acetaminophen 325 MG Oral T ablet 12/12/2020 12:00:00 AM EDT 650 mg Oral active Take 2 tablets by mouth every 8 (eight) hours as needed for up to 10 days [facility] Thiamine 100 MG Oral Tablet Thiamine HCl 100 MG Oral T ablet (B-1) Thiamine HCl 100 MG Oral Tablet (B-1) 12/12/2020 12:00:00 AM EDT 100 mg Oral active Take [facility] 5 MG Oral Tablet Lisinopril 5 MG Oral Table t (PRINIVIL,ZESTRIL) Lisinopril 5 MG Oral Tablet (PRINIVIL,ZESTRIL) 12/12/2020 12:00:00 AM EDT 5 mg Oral active Take 1 tablet by mouth d [facility] pantoprazole 40 MG Delayed Release Oral Tablet pantoprazole (PROTONIX) EC tablet 40 mg pantoprazole (PROTONIX) EC tablet 40 mg 12/11/2020 07:30:00 AM E DT 40 mg Oral active 40 mg, Ora l, Before Breakfast, First dose (after last modification) on Sun12/11/20 at 0730, For 5 doses
Do not crush or chew
[facility] Medication administered onsite Acetaminophen 325 MG Oral [...] mg from all sources in 24 hours.
[facility] Medication administered onsite Oxycodone Hydrochloride 5 MG Oral Tablet oxyCODONE (ROXICODONE) immediate release tablet 5 mg oxyCODONE (ROXICODONE) immediate release tablet 5 mg 12/10/2020 04:45:00 PM EDT 5 mg Oral completed 5 mg, Oral, Once, On Sun12/10/20 at 1645, For 1 dose
Oxycodone immediate release is limited to 10 mg per dose. Higher doses ([facility] only) require Pain Service consultation and approval.
[facility] Medication administered onsite fentaNYL (SUBLIMAZE) (PF) injection 7421-7366-69 12/10/2020 12:18:14 PM EDT completed Code/Trauma Medicati on, Starting on Sun12/10/20 at 1218 [facility] Medication administered onsite 2 ML Midazolam 1 MG/ML Injection midazolam (PF) (VERSE D) injection midazolam (PF) (VERSED) injection 12/10/2020 12:10:25 PM EDT aborted Code/Trauma Medication, Starting on Sun12/10/20 at 1210 [facility] Medication administered onsite fentaNYL (SUBLIMAZE) (PF) injection [id number] 12/10/2020 12:10:02 PM EDT aborted Code/Trauma Medicati on, Starting on Sun12/10/20 at 1210 [facility] Medication administered onsite 2 ML Midazolam 1 MG/ML Injection midazolam (PF) (VERSE D) injection midazolam (PF) (VERSED) injection 12/10/2020 12:09:08 PM EDT aborted Code/Trauma Medication, Starting on Sun12/10/20 at 1209 [facility] Medication administered onsite fentaNYL (SUBLIMAZE) (PF) injection [id number] 12/10/2020 12:08:42 PM EDT aborted Code/Trauma Medicati on, Starting on Sun12/10/20 at 1208 [facility] Medication administered onsite phytonadione (VITAMIN K1) 1 mg/mL oral solution 10 mg 12/09/2020 07:35:00 PM EDT 10 mg Oral completed 10 mg, Oral, Daily Standard, First dose on Sun12/09/20 at 1945, For 3 days [facility] Medication administered onsite NaCl infusion 0.9 % [id number] 12/09/2020 07:00:00 PM EDT Intravenous aborted at 100 mL/hr, Intrav enous, Continuous, Starting on Sun12/09/20 at 1900, For 24 hours [facility] Medication administered onsite Bisacodyl 5 MG Delayed Release Oral Tablet bisacodyl ( DULCOLAX) EC tablet 20 mg bisacodyl (DULCOLAX) EC tablet 20 mg 12/09/2020 05:45:00 PM EDT 20 mg Oral completed 20 mg, Oral, Onc e, On Sun12/09/20 at 1745, For 1 dose
Do not crush or chew
[facility] Medication administered onsite pantoprazole 40 MG Delayed Release Oral Tablet pantoprazole (PROTONIX) EC tablet 40 mg pantoprazole (PROTONIX) EC tablet 40 mg 12/09/2020 05:30:00 PM E DT 40 mg Oral aborted 40 mg, Ora l, Two times daily before breakfast and dinner, First dose on Sun12/09/20 at 1730, For 30 days
Do not crush or chew
[facility] Medication administered onsite 2 ML Midazolam 1 MG/ML Injection midazolam (PF) (VERSE D) injection midazolam (PF) (VERSED) injection 12/09/2020 05:04:35 PM EDT completed Code/Trauma Medication, Starting on Carol 12/09/[address] [place] [address] Medication administered onsite fentaNYL (SUBLIMAZE) (PF) injection [id number] 12/09/2020 05:04:11 PM EDT completed Code/Trauma Medicati on, Starting on Carol 12/09/20 at [facility] Medication administered onsite 2 ML Midazolam 1 MG/ML Injection midazolam (PF) (VERSE D) injection midazolam (PF) (VERSED) injection 12/09/2020 05:02:04 PM EDT completed Code/Trauma Medication, Starting on Carol 12/09/20 at [facility] Medication administered onsite fentaNYL (SUBLIMAZE) (PF) injection [id number] 12/09/2020 05:01:47 PM EDT completed Code/Trauma Medicati on, Starting on Carol 12/09/[address] [place] [address] Medication administered onsite NaCl infusion 0.9 % [id number] 12/09/2020 03:00:00 PM EDT Intravenous aborted at 100 mL/hr, Intrav enous, Continuous, Starting on Carol 12/09/20 at 1500, For 24 hours [facility] Medication administered onsite Oxycodone Hydrochloride 5 MG [...] only) require Pain Service consultation and approval.
[facility] Medication administered onsite Escitalopram 10 MG Oral Tablet escitalopram (LEXAPRO) tablet 20 mg escitalopram (LEXAPRO) tablet 20 mg 12/09/2020 09:00:00 AM EDT 20 mg Oral active 20 mg, Oral, Daily Standard, First dose on Carol 12/09/20 at 0900, For 30 days [facility] Medication administered onsite multivitamin tablet 1 tablet [id number] 12/09/2020 09:00:00 AM EDT 1 {tbl} Oral active 1 tablet, Oral , Daily Standard, First dose on Sun12/09/20 at 0900, For 30 days [facility] Medication administered onsite Ceftriaxone 1000 MG Injection cefTRIAXone (ROCEPHIN) i nfusion 1 g (premix) cefTRIAXone (ROCEPHIN) infusion 1 g (premix) 12/09/2020 09:00:00 AM EDT 1 g Intravenous aborted 1 g, Intraven ous, at 100 mL/hr, Daily Standard, First dose on Sun12/09/20 at 0900, For 4 doses
Discouraged Uses: Empiric treatment of post-surgical meningitis (ceftazidime preferred)
[facility] Medication administered onsite Oxycodone Hydrochloride 5 MG Oral Tablet oxyCODONE (ROXICODONE) immediate release tablet 2.5 mg oxyCODONE (ROXICODONE) immediate release tablet 2.5 mg 12/09/2020 08:45:00 AM EDT 2.5 mg Oral completed 2.5 mg, Oral, Once, On Sun12/09/20 at 0845, For 1 dose
Oxycodone immediate release is limited to 10 mg per dose. Higher doses ( only) require Pain Service consultation and approval.
[facility] Medication administered onsite NaCl infusion 0.9 % [id number] 12/09/2020 07:45:00 AM EDT Intravenous aborted at 200 mL/hr, Intrav enous, Continuous, Starting on Sun12/09/20 at 0745, For 12 hours [facility] Medication administered onsite pantoprazole 4 MG/ML Injectable Solution pantoprazole (PROTONIX) injection 80 mg pantoprazole (PROTONIX) injection 80 mg 12/08/2020 11:45:00 PM EDT 80 mg Intravenous completed 80 mg, Intrav enous, Once, On Sun12/08/20 at 2345, For 1 dose [facility] Medication administered onsite pantoprazole (PROTONIX) 0.4 mg/mL in sodium chloride 0.9 % 2 50 mL infusion 12/08/2020 11:45:00 PM EDT 8 mg/h Intravenous aborted 8 mg/hr (20 mL/hr), Intravenous, at 20 mL/hr, Continuous, Starting on Sun12/08/20 at 2345, For 30 days
Indication: Active GI bleed [facility] Medication administered onsite 1 ML Octreotide 0.05 MG/ML Prefilled Syr moreno octreotide (SANDOSTATIN) injection 50 mcg octreotide (SANDOSTATIN) injection 50 mcg 12/08/2020 11:45:00 PM EDT 50 ug Intravenous completed 50 mcg, Intravenous, Once, On Sun12/08/20 at 2345, For 1 dose [facility] Medication administered onsite octreotide (SANDOSTATIN) 5 mcg/mL in sodium chloride 0.9 % 2 50 mL infusion 12/08/2020 11:45:00 PM EDT 50 ug/h Intravenous aborted 50 mcg/hr (10 mL/hr), Intravenous, at 10 mL/hr, Continuous, Starting on Sun12/08/20 at 2345, For 30 days [facility] Medication administered onsite thiamine (B-1) 500 mg in sodium chloride 0.9 % 50 mL IVPB 12/08/2020 11:45:00 PM EDT 500 mg Intravenous active 500 mg, Intravenous, Administer over 30 Minutes, Daily Standard, First dose on Sun12/08/20 at 2345, For 30 days [facility] Medication administered onsite folic acid 1 mg in sodium chloride 0.9 % 50 mL IVPB 12/08/2020 11:45:00 PM EDT 1 mg Intravenous active 1 mg , Intravenous, Administer over 30 Minutes, Daily Standard, First dose on Sun12/08/20 at 2345, For 30 days [facility] Medication administered onsite NaCl infusion 0.9 % [id number] 12/08/2020 11:30:00 PM EDT Intravenous aborted at 200 mL/hr, Intrav enous, Continuous, Starting on Sun12/08/20 at 2330, For 12 hours [facility] Medication administered onsite 50 ML Magnesium Sulfate [...] 16 mEq (2 g) q1h x 3
[facility] Medication administered onsite Folic Acid 1 MG Oral Tablet Folic Acid 1 MG Oral Table t (FOLVITE) Folic Acid 1 MG Oral Tablet (FOLVITE) 2020 12:00:00 AM EDT 1 mg Oral active Take 1 tablet by mouth daily [facility] Vitamin B 12 0.25 MG Oral Tablet Cyanocobalamin 250 MC G Oral Tablet Cyanocobalamin 250 MCG Oral Tablet 2020 12:00:00 AM EDT 250 ug Oral active Take 1 tablet by mouth daily [facility] pantoprazole 40 MG Delayed Release Oral Tablet Pantoprazole Sodium 40 MG Oral Tablet Delayed Release (Protonix) Pantoprazole Sodium 40 MG Oral Tablet De layed Release (Protonix) 11/17/2020 12:00:00 AM EDT 40 mg Oral active Take 1 tablet by mouth daily [facility] Clindamycin 300 MG Oral Capsule clindamy bharti HCl 300 mg capsule TAKE ONE CAPSULE BY MOUTH EVERY SIX HOURS UNTIL GONE clindamycin HCl 300 mg capsule TAKE ONE CAPSULE BY MOUTH EVERY SIX HOURS UNTIL GONE completed clindamycin 300 MG Oral Capsule BRONX ([facility]) duloxetine 60 MG Delayed Release Oral Ca psule duloxetine 60 mg capsule,delayed release TAKE ONE CAPSULE BY MOUTH ONCE DAILY duloxetine 60 mg capsule,delayed release TAKE ONE CAPSULE BY MOUTH ONCE DAILY completed duloxetine 60 MG Delayed Release Oral Capsule BRONX ([facility]) Lisinopril 30 MG Oral Tablet Lisinopril 30 MG Oral Tab let (ZESTRIL) Lisinopril 30 MG Oral Tablet (ZESTRIL) 30 mg Oral aborted Take 30 mg by mouth daily [facility] Insurance Providers Payer name Policy type / Coverage type Policy ID Covered republican ID Covered republican's relationship to see Policy See Plan Information Medicaid S [id number] S [id number] Medicaid S [id number] S [id number] [facility] COMMUNITY PLAN [facility] [id number] SP [id number] Managed Care - Community Plan [facility] [id number] S [id number] Medicaid S [id number] S [id number] UNHC COMMUNITY PLAN MCDHMO [id number] SP [id number] Managed Care - [facility] Community Plan P [id number] S [id number] [facility] [id number] SP [id number] Managed Care - Community Plan [facility] P [id number] S [id number] Managed Care - [facility] Community Plan P [id number] S [id number] [facility] I [id number] Self [id number] UH I [id number] Self [id number] UH I [id number] Self [id number] MEDICAID [id number] SP [id number] MEDICAID M [id number] S [id number] SELF PAY ONLY [id number] SP [id number] SELF PAY ONLY [id number] SP [id number] UN COMMUNITY PLAN MCDO [id number] SP [id number] Managed Care BCBS S [id number] S [id number] SELF PAY UNAVAILABLE SP UNAVAILA [facility] PLAN [id number] SP [id number] HMO BLUE [id number] SP [id number] Managed Care [facility] O UNAVAILABLE S UNAVAILABLE [facility]) O [id number] S [id number] [facility] COMMUNITY PLAN MCDO [id number] SP [id number] ANSI-Medicaid [id number] ANSI-Medicaid [id number] ANSI-Medicaid [id number] ANSI-Medicaid [id number] [facility] Health Maintenance Organization ([facility]) [id number] Self [id number] Self Pay P None S None Managed Care Nadir P [id number] S [id number] [facility] Maintenance [facility] ([facility]) [id number] Self [id number] [facility] [id number] Problems, Conditions, and Diagnoses Code Display Name Description Problem Type Effective Dates Data Source(s) R59.0 Localized enlarged lymph nodes Localized enlarged lymp h nodes Diagnosis 04/07/2021 10:17:00 AM [facility] D50.0 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) Diagnosis 04/07/2021 10:17:00 AM [facility] [id number] Fitting procedure Fitting Procedure Problem 03/04 06:13:25 PM EDT [facility]) Surgeries/Procedures Procedure Description Date Indications Data Source(s) HEMATOPATHOLOGY <td>HEMATOPATHOLOGY</td><td> Routine</td><td>04/07/2021 12:00 AM EST</td><td></td><td> </td> 04/07/2021 12:00:00 AM [facility] BLOOD COUNT COMPLETE AUTOMATED <td>CBC</td><td>Timed</ td><td>12/12/2020 5:28 AM EDT</td><td></td><td> </td> 12/12/2020 05:28:00 AM [facility] PHOSPHORUS INORGANIC <td>PHOSPHORUS LEVEL</td><td >Routine</td><td>12/12/2020 5:28 AM EDT</td><td></td><td> </td> 12/12/2020 05:28:00 AM [facility] MAGNESIUM <td>MAGNESIUM LEVEL</td><td> Routine</td><td>12/12/2020 5:28 AM EDT</td><td></td><td> </td> 12/12/2020 05:28:00 AM [facility] BASIC METABOLIC PANEL CALCIUM TOTAL <td>BASIC METABOLI C PANEL</td><td>Routine</td><td>12/12/2020 5:28 AM EDT</td><td></td><td> </td> 12/12/2020 05:28:00 AM [facility] BLOOD COUNT COMPLETE AUTOMATED <td>CBC</td><td>Timed</ td><td>12/11/2020 3:52 PM EDT</td><td></td><td> </td> 12/11/2020 03:52:00 PM [facility] BLOOD COUNT COMPLETE AUTOMATED <td>CBC</td><td>Timed</ td><td>12/11/2020 6:09 AM EDT</td><td></td><td> </td> 12/11/2020 06:09:00 AM [facility] PHOSPHORUS INORGANIC <td>PHOSPHORUS LEVEL</td><td >Routine</td><td>12/11/2020 6:09 AM EDT</td><td></td><td> </td> 12/11/2020 06:09:00 AM [facility] MAGNESIUM <td>MAGNESIUM LEVEL</td><td> Routine</td><td>12/11/2020 6:09 AM EDT</td><td></td><td> </td> 12/11/2020 06:09:00 AM [facility] BASIC METABOLIC PANEL CALCIUM TOTAL <td>BASIC METABOLI C PANEL</td><td>Routine</td><td>12/11/2020 6:09 AM EDT</td><td></td><td> </td> 12/11/2020 06:09:00 AM [facility] BLOOD COUNT COMPLETE AUTOMATED <td>CBC</td><td>Timed</ td><td>12/10/2020 5:47 PM EDT</td><td></td><td> </td> 12/10/2020 05:47:00 PM [facility] BASIC METABOLIC PANEL CALCIUM TOTAL <td>BASIC METABOLI C PANEL</td><td>Routine</td><td>12/10/2020 1:07 PM EDT</td><td></td><td> </td> 12/10/2020 01:07:00 PM [facility] BLOOD COUNT COMPLETE AUTOMATED <td>CBC</td><td>Timed</ td><td>12/10/2020 10:13 AM EDT</td><td></td><td> </td> 12/10/2020 10:13:00 AM [facility] CALCIUM IONIZED <td>CALCIUM, IONIZED</td><td >Routine</td><td>12/10/2020 10:13 AM EDT</td><td></td><td> </td> 12/10/2020 10:13:00 AM [facility] PHOSPHORUS INORGANIC <td>PHOSPHORUS LEVEL</td><td >Routine</td><td>12/10/2020 5:09 AM EDT</td><td></td><td> </td> 12/10/2020 05:09:00 AM [facility] MAGNESIUM <td>MAGNESIUM LEVEL</td><td> Routine</td><td>12/10/2020 5:09 AM EDT</td><td></td><td> </td> 12/10/2020 05:09:00 AM [facility] COMPREHENSIVE METABOLIC PANEL <td>COMPREHENSIVE METABO LIC PANEL</td><td>Routine</td><td>12/10/2020 5:09 AM EDT</td><td></td><td> </td> 12/10/2020 05:09:00 AM [facility] BLOOD COUNT COMPLETE AUTOMATED <td>CBC</td><td>Timed</ td><td>12/10/2020 12:59 AM EDT</td><td></td><td> </td> 12/10/2020 12:59:00 AM [facility] Screening colonoscopy (procedure) <td>COLONOSCOPY</td> <td></td><td>12/10/2020 12:00 AM EDT</td><td></td><td></td> 12/10/2020 12:00:00 AM [facility] UPPER GI ENDOSCOPY; DX, W/WO SPECIMEN COLLECTION, BRUS RADHA/WASHING (SEP PROC) <td>UPPER GI ENDOSCOPY; DX, W/WO SPECIMEN COLLECTION, BRUSHING/WASHING (SEP PROC)</td><td></td><td>12/09/2020 5:00 PM EDT</td><td> Upper GI bleed</td><td></td> 12/09/2020 05:00:00 PM EDT - 12/09/2020 05:15:00 PM [facility] BLOOD COUNT COMPLETE AUTOMATED <td>CBC</td><td>Timed</ td><td>12/09/2020 4:06 PM EDT</td><td></td><td> </td> 12/09/2020 04:06:00 PM [facility] GLUCOSE QUANTITATIVE BLOOD XCPT REAGENT STRIP <td>POCT GLUCOSE, DOCKED</td><td>Routine</td><td>12/09/2020 12:35 PM EDT</td><td></td><td> </td> 12/09/2020 12:35:00 PM [facility] TRANSFUSE RBC (ONCE) <td>TRANSFUSE RBC (ONCE)</td ><td>STAT</td><td>12/09/2020 11:00 AM EDT</td><td></td><td></td> 12/09/2020 11:00:50 AM [facility] CALCIUM IONIZED <td>CALCIUM, IONIZED</td><td >Routine</td><td>12/09/2020 10:15 AM EDT</td><td></td><td> </td> 12/09/2020 10:15:00 AM [facility] ULTRASOUND ABDOMINAL REAL TIME W/IMAGE LIMITED <td>US ABDOMEN LIMITED [id number]</td><td>Routine</td><td>12/09/2020 10:10 AM EDT</td><td></td><td> </td> 12/09/2020 10:10:00 AM [facility] CULTURE BACTERIAL BLOOD AEROBIC W/ID ISOLATES <td>BLOO D CULTURE</td><td>Routine</td><td>12/09/2020 6:04 AM EDT</td><td></td><td></td> 12/09/2020 06:04:00 AM [facility] BLOOD COUNT COMPLETE AUTOMATED <td>CBC</td><td>Timed</ td><td>12/09/2020 6:04 AM EDT</td><td></td><td> </td> 12/09/2020 06:04:00 AM [facility] PHOSPHORUS INORGANIC <td>PHOSPHORUS LEVEL</td><td >Routine</td><td>12/09/2020 6:04 AM EDT</td><td></td><td> </td> 12/09/2020 06:04:00 AM [facility] MAGNESIUM <td>MAGNESIUM LEVEL</td><td> Routine</td><td>12/09/2020 6:04 AM EDT</td><td></td><td> </td> 12/09/2020 06:04:00 AM [facility] COMPREHENSIVE METABOLIC PANEL <td>COMPREHENSIVE METABO LIC PANEL</td><td>Routine</td><td>12/09/2020 6:04 AM EDT</td><td></td><td> </td> 12/09/2020 06:04:00 AM [facility] TRANSFUSE RBC (ONCE) <td>TRANSFUSE RBC (ONCE)</td ><td>STAT</td><td>12/09/2020 5:45 AM EDT</td><td></td><td></td> 12/09/2020 05:45:38 AM [facility] URNLS DIP STICK/TABLET REAGENT AUTO MICROSCOPY <td>URI NALYSIS WITH REFLEX URINE CULTURE</td><td>STAT</td><td>12/09/2020 2:02 AM EDT</td><td></td><td> </td> 12/09/2020 02:02:00 AM [facility] CULTURE BACTERIAL BLOOD AEROBIC W/ID ISOLATES <td>BLOO D CULTURE</td><td>Routine</td><td>12/09/2020 12:07 AM EDT</td><td></td><td></td> 12/09/2020 12:07:00 AM [facility] UPPER GI ENDOSCOPY <td>UPPER GI ENDOSCOPY</td>< td></td><td>12/09/2020 12:00 AM EDT</td><td></td><td></td> 12/09/2020 12:00:00 AM EDT [facility] COVID-19 PCR <td>COVID-19 PCR</td><td>Rou jason</td><td>12/08/2020 11:59 PM EDT</td><td></td><td> </td> 12/08/2020 11:59:00 PM [facility] THROMBOPLASTIN TIME PARTIAL PLASMA/WHOLE BLOOD <td>PAR TIAL THROMBOPLASTIN TIME (PTT)</td><td>STAT</td><td>12/08/2020 11:59 PM EDT</td><td></td><td> </td> 12/08/2020 11:59:00 PM [facility] PROTHROMBIN TIME <td>PROTIME INR</td><td>STAT </td><td>12/08/2020 11:59 PM EDT</td><td></td><td> </td> 12/08/2020 11:59:00 PM [facility] BLOOD COUNT COMPLETE AUTOMATED <td>CBC</td><td>Timed</ td><td>12/08/2020 11:59 PM EDT</td><td></td><td> </td> 12/08/2020 11:59:00 PM [facility] [facility] BLOOD TYPING ABO <td>TYPE AND SCREEN</td><td> STAT</td><td>12/08/2020 11:59 PM EDT</td><td></td><td> </td> 12/08/2020 11:59:00 PM [facility] LIPASE <td>LIPASE LEVEL</td><td>STA T</td><td>12/08/2020 11:59 PM EDT</td><td></td><td> </td> 12/08/2020 11:59:00 PM [facility] COMPREHENSIVE METABOLIC PANEL <td>COMPREHENSIVE METABO LIC PANEL</td><td>Routine</td><td>12/08/2020 11:59 PM EDT</td><td></td><td> </td> 12/08/2020 11:59:00 PM [facility] Results ID Date Data Source [id number] 04/08/2021 03:50:00 PM [facility] Hematopathology ReportName: CASIE MORINMRN: [id number] Number: [id number] Date: 04/07/2021 00:00Received Date: 04/08/2021 12:47Physician(s): RYAN MORRISON MD ADJAPONG, OPOKU, MDSpecimen(s) ReceivedA: Fine Needle Aspiration, Flow Cytometry; RECEIVED FNA OF [facility] NEC[facility]LYMPH [facility]DE [facility] HistoryEnlarged lymph nodesTEST REQUESTED/PERFORMED: Flow Cytometry Analysis DiagnosisFlow cytometry of right neck lymph node, FNA: No evidence of non-Hodgkinlymphoma. As the sample shows significant cell degeneration, the flowresults might not be labor representative of the sampled tissue.Yoav alcantar M.D.;Resident PathologistElectronically Signed By Lay Gaitan M.D. Attending Pathologist 04/08/2021 15:50:33The attending pathologist named above attests that he/she has personallyreviewed the relevant preparation(s) for the specimen(s) and rendered thefinal diagnosis. ProceduresFlow Cytometry Date Ordered:04/08/2021 Status: Signed Out04/08/2021 InterpretationA cytospin shows mostly degenerating cells.Lymphoma [place] Panel The following markers were assayed: CD45 (gate), CD2, CD3, CD4, CD5, CD7,CD8, CD10, CD19, CD20, [place], and Lambda.Events :[id number] NOTE: Routinely a minimum of 50,000 events are collectedin each panel tube. Due to sample cellularity and/or processing thisnumber was not achievable for this sample.No viability performed due to low cellularity.Flow Cytometry Differential (CD45/SSC)Lymphocyte [place]aught[place]: 2%CD45 dim Haughton: 0%Monocyte [place]aught[place]: 0%Granulocyte [place]aughton: 8%Nucleated/Erythroid Haughton: 13%The lymphocyte gate showsB-Cells (CD19): 8%[place]/Lambda Ratio: 2.7T-Cells (CD3): 86%CD4/CD8 Ratio: 6.9Results: (expressed as % of lymphocyte gate)B-cell Markers: CD19 = 8, CD19/CD5 = 1Gated on CD19+ cells: CD19/[place] = 3, CD19/Lambda = 1, CD19/CD10 = [...] were developed and theirperformance characteristics determined by [facility] Pathology department.They have not been cleared or approved by the US Food and DrugAdministration. The FDA has determined that such clearance or approval isnot necessary. Name Value Range Interpretation Code Description Data Lou rce(s) Supporting Document(s) ID Date Data Source [id number] 04/04/2021 05:06:00 PM EST [facility] Name Value Range Interpretation Code Description [facility]s) SARS coronavirus 2 RNA [Presence] in Res piratory specimen by TOAY with probe detection NEGATIVE [facility] This lab was ordered by [facility] a nd reported by [facility]. ID Date Data Source [id number] 12/12/2020 05:24:[address] [facility] Name Value Range Interpretation Code Description Data [facility] Supporting Document(s) Discharge Summary [facility] [id number]/EKAsgQJTbd4SoELzeFZg4IBkpPDDgY7QqJTU7eL5aAQJ3ZFaQZsZvOmIgFuY8 lbm [file] Maria Guadalupe/rcktzhN6KO55b8zhlJuKguBaw0NgPOUX5go/iG [file] [id number]MhSp8WWzRmJPXHPqAfRM8NCNs= ID Date Data Source [id number] 12/12/2020 06:08:11 AM EDT [facility] Name Value Range Interpretation Code Description Data Lou rce(s) Supporting Document(s) Leukocytes [#/volume] in Blood by Automated count 5.5 10*3/uL 4-10 [facility] Erythrocytes [#/volume] in Blood by Automated count 2.87 10*6/uL 4.6- 6.1 L [facility] Hemoglobin [Mass/volume] in Blood 7.8 g/dL 13.5-18 L [facility] Hematocrit [Volume Fraction] of Blood by Automated count 24.3 % 4 1-53 L [facility] Erythrocyte mean corpuscular volume [Entitic volume] by Auto mated count 84.8 fL 80-96 [facility] Erythrocyte mean corpuscular hemoglobin [Entitic mass] by Automated count 27.3 pg 27-33 [facility] Erythrocyte mean corpuscular hemoglobin concentration [Mass/volume] by Automated count 32.2 g/dL 32.0-36.0 [facility] width [Ratio] by Automated count 17.3 % 11.5-14.5 H [facility] Platelets [#/volume] in Blood by Automated count 112 10*3/uL 150-400 L [facility] ID Date Data Source [id number] 12/12/2020 06:27:20 AM [facility] Name Value Range Interpretation Code Description Data Lou rce(s) Supporting Document(s) Bicarbonate [Moles/volume] in Serum 23 mmol/L 22-29 [facility] Chloride [Moles/volume] in Serum or Plasma 102 mmol/L 98-107 [facility] Creatinine [Mass/volume] in Serum or Plasma 0.55 mg/dL 0.70-1.20 L [facility] Glucose [Mass/volume] in Serum or Plasma 102 mg/dL 70-140 [facility] Potassium [Moles/volume] in Serum or Plasma 3.5 mmol/L 3.4-5.1 [facility] Sodium [Moles/volume] in Serum or Plasma 133 mmol/L 136-145 L [facility] Urea nitrogen [Mass/volume] in Serum or Plasma 5 mg/dL 6-20 [facility] Anion gap 3 in Serum or Plasma 9 mmol/L 8-15 [facility] Osmolality of Serum or Plasma by calculation 274 mosm/kg 275-300 L [facility] Creatinine/Urea nitrogen [Mass Ratio] in Serum or Plasma 9 [facility] Calcium [Mass/volume] in Serum or Plasma 8.0 mg/dL 8.6-10.0 [facility] Glomerular filtration rate/1.73 sq M pre dicted among non-blacks [Volume Rate/Area] in Serum or Plasma by Creatinine-based formula (MDRD) >6 0 [facility] Glomerular filtration rate/1.73 sq M pre dicted among blacks [Volume Rate/Area] in Serum or Plasma by Creatinine-based formula (MDRD) >60 [facility] ID Date Data Source [id number] 12/12/2020 06:27:20 AM [facility] Value Range Interpretation Code Description Data Lou rce(s) Supporting Document(s) Phosphate [Mass/volume] in Serum or Plasma 3.1 mg/dL 2.5-4.5 [facility] ID Date Data Source [id number] 12/12/2020 06:27:20 AM [facility] Value Range Interpretation Code Description Data Lou rce(s) Supporting Document(s) Magnesium [Mass/volume] in Serum or Plasma 2.0 mg/dL 1.6-2.6 [facility] ID Date Data Source [id number] 12/11/2020 04:51:04 PM [facility] Name Value Range Interpretation Code Description Data Lou rce(s) Supporting Document(s) Leukocytes [#/volume] in Blood by Automated count 5.3 10*3/uL 4-10 [facility] Erythrocytes [#/volume] in Blood by Automated count 2.88 10*6/uL 4.6- 6.1 L [facility] Hemoglobin [Mass/volume] in Blood 8.2 g/dL 13.5-18 L [facility] Hematocrit [Volume Fraction] of Blood by Automated count 24.5 % 4 1-53 L [facility] Erythrocyte mean corpuscular volume [Entitic volume] by Auto mated count 84.9 fL 80-96 [facility] Erythrocyte mean corpuscular hemoglobin [Entitic mass] by Automated count 28.5 pg 27-33 [facility] Erythrocyte mean corpuscular hemoglobin concentration [Mass/volume] by Automated count 33.5 g/dL 32.0-36.0 [facility] E[facility] distribution width [Ratio] by Automated count 16.9 % 11.5-14.5 H [facility] Platelets [#/volume] in Blood by Automated count 105 10*3/uL 150-400 L [facility] ID Date Data Source [id number] 12/11/2020 03:28:44 PM [facility] Name Value Range Interpretation Code Description Data Lou rce(s) Supporting Document(s) History and Physical [facility] [id number]EB1tY5uUYC9VBkUUmKaRaTgVvG9 [facility] [file] [id number]dgRUUZUf5K ID Date Data Source [id number] 12/11/2020 06:57:52 AM [facility] Name Value Range Interpretation Code Description Data Lou rce(s) Supporting Document(s) Leukocytes [#/volume] in Blood by Automated count 4.6 10*3/uL 4-10 [facility] Erythrocytes [#/volume] in Blood by Automated count 2.74 10*6/uL 4.6- 6.1 L [facility] Hemoglobin [Mass/volume] in Blood 7.7 g/dL 13.5-18 L [facility] Hematocrit [Volume Fraction] of Blood by Automated count 23.0 % 4 1-53 L [facility] Erythrocyte mean corpuscular volume [Entitic volume] by Auto mated count 84.2 fL 80-96 [facility] Erythrocyte mean corpuscular hemoglobin [Entitic mass] by Automated count 28.1 pg 27-33 [facility] Erythrocyte mean corpuscular hemoglobin concentration [Mass/volume] by Automated count 33.3 g/dL 32.0-36.0 [facility] E[facility]th[facility] distribution width [Ratio] by Automated count 17.0 % 11.5-14.5 H [facility] Platelets [#/volume] in Blood by Automated count 105 10*3/uL 150-400 L [facility] ID Date Data Source [id number] 12/11/2020 08:31:44 AM [facility] Value Range Interpretation Code Description Data Lou rce(s) Supporting Document(s) Magnesium [Mass/volume] in Serum or Plasma 2.1 mg/dL 1.6-2.6 [facility] ID Date Data Source [id number] 12/11/2020 08:31:44 AM [facility] Value Range Interpretation Code Description Data Lou rce(s) Supporting Document(s) Bicarbonate [Moles/volume] in Serum 22 mmol/L 22-29 [facility] Chloride [Moles/volume] in Serum or Plasma 101 mmol/L 98-107 [facility] Creatinine [Mass/volume] in Serum or Plasma 0.52 mg/dL 0.70-1.20 L [facility] Glucose [Mass/volume] in Serum or Plasma 91 mg/dL 70-140 [facility] Potassium [Moles/volume] in Serum or Plasma 3.5 mmol/L 3.4-5.1 [facility] Sodium [Moles/volume] in Serum or Plasma 133 mmol/L 136-145 L [facility] Urea nitrogen [Mass/volume] in Serum or Plasma 6 mg/dL 6-20 [facility] Anion gap 3 in Serum or Plasma 10 mmol/L 8-15 [facility] Osmolality of Serum or Plasma by calculation 273 mosm/kg 275-300 L [facility] Creatinine/Urea nitrogen [Mass Ratio] in Serum or Plasma 12 [facility] Calcium [Mass/volume] in Serum or Plasma 7.6 mg/dL 8.6-10.0 L [facility] Glomerular filtration rate/1.73 sq M pre dicted among non-blacks [Volume Rate/Area] in Serum or Plasma by Creatinine-based formula (MDRD) >6 0 [facility] Glomerular filtration rate/1.73 sq M pre dicted among blacks [Volume Rate/Area] in Serum or Plasma by Creatinine-based formula (MDRD) >60 [facility] ID Date Data Source [id number] 12/11/2020 08:31:44 AM [facility] Name Value Range Interpretation Code Description Data Lou rce(s) Supporting Document(s) Phosphate [Mass/volume] in Serum or Plasma 3.0 mg/dL 2.5-4.5 [facility] ID Date Data Source [id number] 12/10/2020 05:53:09 PM [facility] Name Value Range Interpretation Code Description Data Lou rce(s) Supporting Document(s) History and Physical [facility] [id number]/MBKzcFRZoc2AfUWieUEg9BYnxKTRxM7PuCFD7gQ1aUCE5YQtBAkGuBnNrAjWl [facility] [file] [id number]DvpLBGQIu6K ID Date Data Source [id number] 12/10/2020 05:53:[address] [facility] Name Value Range Interpretation Code Description Data Lou rce(s) Supporting Document(s) History and Physical [facility] [id number]/XSHkjXPMga2CnDAcdRIc1ATztUZQbW0FoAOC1kU6yLLT4BNhWCbSoJlItMtJd lbm [file] VPrNRJBMKyc8MyyYSKlxP/MhNAW9Gql+framing specialist+4Gs16mOR/rfnh+MD/NUj2RaViHryk/O76MR49a+3pTrbs 8P/dIZubXzJafUJf7yX6OLE3GFHrDXnjlCMdrtw1dC32nFP4/Sp2YHe4cUwasQR0skTDLvRTwakkjvR2 x8Z/1QWQCOrpWBMtZiAYxsYYUut5zXvBax0M7vLrup V82tyypuTS7c+az4HujvSwOCjUbKV5kcEj6cC3qOQTIUuaXsI5vc5OkKIj4pRwi3K/rjc86vBVsYBOnK MhFDTvdDHwB8kIC7B1PCrgJ2HOGFuZlFKauN3i0Y1on7giLbsxwSvI7s5CNr58aGT9dL5ZWHwDZ8YsGa GLEG2AX3aQLBoPhqZK3CZzqYKmDKnsvWys+Vn5qTe0 Gadt5Wpx41+HyC8c1KnbbQeIT5Bb+Ma6hVJjX4iso4419Axmr372/mT42xUH9te3aw2IzVLlqRy+tgYI WgnxXGp1F+Ska2HjdCbPhaN/FRt0W0hsMi3lkZUGkJDnkrAnjql6gN5vsi+rc/W1bg/+I0Wql2UBLn6f +6tLZM3w4I061aFLPr89f78E0h/aCX3+sO9x/Q9lC4 [file] [id number]NI7KWAt= ID Date Data Source [id number] 12/10/2020 05:52:[address] [facility] Name Value Range Interpretation Code Description Data Lou rce(s) Supporting Document(s) Consultation [facility] GBZQWj1yVqUCPzWd12/VKJqlKKYaq6UqBZntZMp7CEwmFPXcA0YtCKK9xQ9pHZR4IScPZzUcPrAjOqOd lbm [file] VTsufJNmnEazDFDIMjVfVBG1NUciWGISWp4F ID Date Data Source [id number] [facility]/10[facility]2020 [facility]22[facility] Name Value Range Interpretation Code Description Data Lou rce(s) Supporting Document(s) Leukocytes [#/volume] in Blood by Automated count 8.4 10*3/uL 4-10 [facility] Erythrocytes [#/volume] in Blood by Automated count 3.48 10*6/uL 4.6- 6.1 L [facility] Hemoglobin [Mass/volume] in Blood 9.7 g/dL 13.5-18 L [facility] Hematocrit [Volume Fraction] of Blood by Automated count 29.9 % 4 1-53 L [facility] Erythrocyte mean corpuscular volume [Entitic volume] by Auto mated count 85.9 fL 80-96 [facility] Erythrocyte mean corpuscular hemoglobin [Entitic mass] by Automated count 27.9 pg 27-33 [facility] Erythrocyte mean corpuscular hemoglobin concentration [Mass/volume] by Automated count 32.5 g/dL 32.0-36.0 [facility] Eryth[facility] distribution width [Ratio] by Automated count 17.3 % 11.5-14.5 H [facility] Platelets [#/volume] in Blood by Automated count 127 10*3/uL 150-400 L [facility] ID Date Data Source [id number] 12/10/2020 01:48:36 PM [facility] Name Value Range Interpretation Code Description Data Lou rce(s) Supporting Document(s) Bicarbonate [Moles/volume] in Serum 22 mmol/L 22-29 [facility] Chloride [Moles/volume] in Serum or Plasma 102 mmol/L 98-107 [facility] Creatinine [Mass/volume] in Serum or Plasma 0.54 mg/dL 0.70-1.20 L [facility] Glucose [Mass/volume] in Serum or Plasma 84 mg/dL 70-140 [facility] Potassium [Moles/volume] in Serum or Plasma 3.9 mmol/L 3.4-5.1 [facility] Sodium [Moles/volume] in Serum or Plasma 132 mmol/L 136-145 L [facility] Urea nitrogen [Mass/volume] in Serum or Plasma 7 mg/dL 6-20 [facility] Anion gap 3 in Serum or Plasma 8 mmol/L 8-15 [facility] Osmolality of Serum or Plasma by calculation 271 mosm/kg 275-300 L [facility] Creatinine/Urea nitrogen [Mass Ratio] in Serum or Plasma 13 [facility] Calcium [Mass/volume] in Serum or Plasma 7.9 mg/dL 8.6-10.0 L [facility] Glomerular filtration rate/1.73 sq M pre dicted among non-blacks [Volume Rate/Area] in Serum or Plasma by Creatinine-based formula (MDRD) >6 0 [facility] Glomerular filtration rate/1.73 sq M pre dicted among blacks [Volume Rate/Area] in Serum or Plasma by Creatinine-based formula (MDRD) >60 [facility] ID Date Data Source [id number] 12/10/2020 10:56:25 AM [facility] Name Value Range Interpretation Code Description Data Lou rce(s) Supporting Document(s) Calcium.ionized [Moles/volume] in Arterial blood 1.08 mmol/L 1.13-1.3 2 [facility] ID Date Data Source [id number] 12/10/2020 10:55:28 AM [facility] Name Value Range Interpretation Code Description Data Lou rce(s) Supporting Document(s) Leukocytes [#/volume] in Blood by Automated count 6.5 10*3/uL 4-10 [facility] Erythrocytes [#/volume] in Blood by Automated count 3.30 10*6/uL 4.6- 6.1 L [facility] Hemoglobin [Mass/volume] in Blood 9.2 g/dL 13.5-18 L [facility] Hematocrit [Volume Fraction] of Blood by Automated count 28.1 % 4 1-53 [facility] Erythrocyte mean corpuscular volume [Entitic volume] by Auto mated count 85.3 fL 80-96 [facility] Erythrocyte mean corpuscular hemoglobin [Entitic mass] by Automated count 27.8 pg 27-33 [facility] Erythrocyte mean corpuscular hemoglobin concentration [Mass/volume] by Automated count 32.7 g/dL 32.0-36.0 [facility] Erythrocyte distribution width [Ratio] by Automated count 17.3 % 11.5-14.5 H [facility] Platelets [#/volume] in Blood by Automated count 110 10*3/uL 150-400 L [facility] ID Date Data Source [id number] 12/10/2020 06:01:23 AM [facility] Name Value Range Interpretation Code Description Data Lou rce(s) Supporting Document(s) Magnesium [Mass/volume] in Serum or Plasma 2.2 mg/dL 1.6-2.6 [facility] ID Date Data Source [id number] 12/10/2020 06:01:23 AM [facility] Value Range Interpretation Code Description Data Lou rce(s) Supporting Document(s) Phosphate [Mass/volume] in Serum or Plasma 3.1 mg/dL 2.5-4.5 [facility] ID Date Data Source [id number] 12/10/2020 06:01:23 AM [facility] Value Range Interpretation Code Description Data Lou rce(s) Supporting Document(s) Albumin [Mass/volume] in Serum or Plasma by Bromocresol green (BCG) dye binding method 2.3 g/dL 3.5-5.2 L [facility] Bilirubin.total [Mass/volume] in Serum or Plasma 1.2 mg/dL <1.2 H [facility] Calcium [Mass/volume] in Serum or Plasma 7.5 mg/dL 8.6-10.0 L [facility] Chloride [Moles/volume] in Serum or Plasma 102 mmol/L 98-107 [facility] Creatinine [Mass/volume] in Serum or Plasma 0.57 mg/dL 0.70-1.20 L [facility] Glucose [Mass/volume] in Serum or Plasma 88 mg/dL 70-140 [facility] Alkaline phosphatase [Enzymatic activity/volume] in Serum or Plasma 104 U/L 40-129 [facility] Potassium [Moles/volume] in Serum or Plasma 3.8 mmol/L 3.4-5.1 [facility] Protein [Mass/volume] in Serum or Plasma 4.7 g/dL 6.4-8.3 L [facility] Sodium [Moles/volume] in Serum or Plasma 129 mmol/L 136-145 L [facility] Aspartate aminotransferase [Enzymatic activity/volume] in Serum or Plasma 145 U/L <40 H [facility] Urea nitrogen [Mass/volume] in Serum or Plasma 8 mg/dL 6-20 [facility] Osmolality of Serum or Plasma by calculation 265 mosm/kg 275-300 L [facility] Creatinine/Urea nitrogen [Mass Ratio] in Serum or Plasma 14 [facility] Bicarbonate [Moles/volume] in Serum 20 mmol/L 22-29 L [facility] Alanine aminotransferase [Enzymatic activity/volume] in Seru m or Plasma 54 U/L <41 H [facility] Anion gap 3 in Serum or Plasma 6 mmol/L 8-15 L [facility] Glomerular filtration rate/1.73 sq M pre dicted among non-blacks [Volume Rate/Area] in Serum or Plasma by Creatinine-based formula (MDRD) >6 0 [facility] Glomerular filtration rate/1.73 sq M pre dicted among blacks [Volume Rate/Area] in Serum or Plasma by Creatinine-based formula (MDRD) >60 [facility] ID Date Data Source [id number] 12/10/2020 01:34:51 AM EDT [facility] Name Value Range Interpretation Code Description Data Lou rce(s) Supporting Document(s) Leukocytes [#/volume] in Blood by Automated count 7.5 10*3/uL 4-10 [facility] Erythrocytes [#/volume] in Blood by Automated count 2.95 10*6/uL 4.6- 6.1 [facility] Hemoglobin [Mass/volume] in Blood 8.1 g/dL 13.5-18 L [facility] Hematocrit [Volume Fraction] of Blood by Automated count 25.3 % 4 1-53 [facility] Erythrocyte mean corpuscular volume [Entitic volume] by Auto mated count 85.9 fL 80-96 [facility] Erythrocyte mean corpuscular hemoglobin [Entitic mass] by Automated count 27.5 pg 27-33 [facility] Erythrocyte mean corpuscular hemoglobin concentration [Mass/volume] by Automated count 32.1 g/dL 32.0-36.0 [facility] Erythrocyte distribution width [Ratio] by Automated count 17.2 % 11.5-14.5 H [facility] Platelets [#/volume] in Blood by Automated count 105 10*3/uL 150-400 L [facility] ID Date Data Source [id number] 12/09/2020 06:15:[address] [facility] Name Value Range Interpretation Code Description Data Lou rce(s) Supporting Document(s) Consultation [facility] [id number]/OWKdfRNPgd1NgKIweQNk5SLkpPEDyC1TvJSX1xD5iOPS1HBdFTzPrWdMeKpEt lbm [file] USHbDLPhLFK2MUc5VPGsDyO+GI8pWIg+Cf1Cd2UuneJ1qdJmWEthFRt8Lx2PKPFED3NHNa== ID Date Data Source [id number] 12/09/2020 05:06:16 PM [facility] Name Value Range Interpretation Code Description Data Lou e(s) Supporting Document(s) Leukocytes [#/volume] in Blood by Automated count 6.0 10*3/uL 4-10 [facility] Erythrocytes [#/volume] in Blood by Automated count 3.13 10*6/uL 4.6- 6.1 L [facility] Hemoglobin [Mass/volume] in Blood 8.7 g/dL 13.5-18 L [facility] Hematocrit [Volume Fraction] of Blood by Automated count 26.6 % 4 1-53 L [facility] Erythrocyte mean corpuscular volume [Entitic volume] by Auto mated count 84.9 fL 80-96 [facility] Erythrocyte mean corpuscular hemoglobin [Entitic mass] by Automated count 27.9 pg 27-33 [facility] Erythrocyte mean corpuscular hemoglobin concentration [Mass/volume] by Automated count 32.9 g/dL 32.0-36.0 [facility] E[facility] width [Ratio] by Automated count 17.1 % 11.5-14.5 H [facility] Platelets [#/volume] in Blood by Automated count 100 10*3/uL 150-400 L [facility] ID Date Data Source [id number] 12/09/2020 12:45:[address] [facility] Name Value Range Interpretation Code Description Data Lou rce(s) Supporting Document(s) Glucose [Mass/volume] in Capillary blood by Glucometer 94 mg/dL 70- 140 [facility] ID Date Data Source [id number] 12/09/2020 11:21:01 AM [facility] US ABDOMEN LIMITED [id number] RESULTInte rpreted by:Jessica Lr, DOStudy: ULTRASOUND ABDOMEN [...] rce(s) Supporting Document(s) ID Date Data Source [id number] 12/09[facility]2020 [facility]:01[facility] Name Value Range Interpretation Code Description Data Lou rce(s) Supporting Document(s) Calcium.ionized [Moles/volume] in Arterial blood 1.13 mmol/L 1.13-1.3 2 [facility] ID Date Data Source [id number] 12/14/2020 10:43:44 AM [facility] Service Cmnt XXX-Imp : R ARMMicroorganis m XXX Cult : No growth 5 days Name Value Range Interpretation Code Description Data Lou rce(s) Supporting Document(s) ID Date Data Source [id number] 12/09/2020 06:24:47 AM [facility] Name Value Range Interpretation Code Description Data Lou rce(s) Supporting Document(s) Leukocytes [#/volume] in Blood by Automated count 6.9 10*3/uL 4-10 [facility] Erythrocytes [#/volume] in Blood by Automated count 2.54 10*6/uL 4.6- 6.1 L [facility] Hemoglobin [Mass/volume] in Blood 7.0 g/dL 13.5-18 L [facility] Hematocrit [Volume Fraction] of Blood by Automated count 21.3 % 4 1-53 L [facility] Erythrocyte mean corpuscular volume [Entitic volume] by Auto mated count 83.7 fL 80-96 [facility] Erythrocyte mean corpuscular hemoglobin [Entitic mass] by Automated count 27.4 pg 27-33 [facility] Erythrocyte mean corpuscular hemoglobin concentration [Mass/volume] by Automated count 32.7 g/dL 32.0-36.0 [facility] E[facility] distribution width [Ratio] by Automated count 17.1 % 11.5-14.5 H [facility] Platelets [#/volume] in Blood by Automated count 107 10*3/uL 150-400 L [facility] ID Date Data Source [id number] 12/09/2020 06:41:24 AM EDT [facility] Name Value Range Interpretation Code Description Data Lou rce(s) Supporting Document(s) Albumin [Mass/volume] in Serum or Plasma by Bromocresol green (BCG) dye binding method 2.1 g/dL 3.5-5.2 [facility] Bil[facility].total [Mass/volume] in Serum or Plasma 1.1 mg/dL <1.2 [facility] Calcium [Mass/volume] in Serum or Plasma 7.2 mg/dL 8.6-10.0 L [facility] Chloride [Moles/volume] in Serum or Plasma 106 mmol/L 98-107 [facility] Creatinine [Mass/volume] in Serum or Plasma 0.47 mg/dL 0.70-1.20 L [facility] Glucose [Mass/volume] in Serum or Plasma 81 mg/dL 70-140 [facility] Alkaline phosphatase [Enzymatic activity/volume] in Serum or Plasma 104 U/L 40-129 [facility] Potassium [Moles/volume] in Serum or Plasma 4.0 mmol/L 3.4-5.1 [facility] Protein [Mass/volume] in Serum or Plasma 4.3 g/dL 6.4-8.3 L [facility] Sodium [Moles/volume] in Serum or Plasma 131 mmol/L 136-145 L [facility] Aspartate aminotransferase [Enzymatic activity/volume] in Serum or Plasma 52 U/L <40 H [facility] Urea nitrogen [Mass/volume] in Serum or Plasma 14 mg/dL 6-20 [facility] Osmolality of Serum or Plasma by calculation 272 mosm/kg 275-300 L [facility] Creatinine/Urea nitrogen [Mass Ratio] in Serum or Plasma 29 [facility] Bicarbonate [Moles/volume] in Serum 19 mmol/L 22-29 L [facility] Alanine aminotransferase [Enzymatic activity/volume] in Seru m or Plasma 19 U/L <41 [facility] Anion gap 3 in Serum or Plasma 6 mmol/L 8-15 L [facility] Glomerular filtration rate/1.73 sq M pre dicted among non-blacks [Volume Rate/Area] in Serum or Plasma by Creatinine-based formula (MDRD) >6 0 [facility] Glomerular filtration rate/1.73 sq M pre dicted among blacks [Volume Rate/Area] in Serum or Plasma by Creatinine-based formula (MDRD) >60 [facility] ID Date Data Source [id number] [facility] Name Value Range Interpretation Code Description Data Lou rce(s) Supporting Document(s) Magnesium [Mass/volume] in Serum or Plasma 1.7 mg/dL 1.6-2.6 [facility] ID Date Data Source [id number] 12/09/2020 09:48:45 AM [facility] Name Value Range Interpretation Code Description Data Lou rce(s) Supporting Document(s) Phosphate [Mass/volume] in Serum or Plasma 2.3 mg/dL 2.5-4.5 L [facility] ID Date Data Source [id number] 12/09/2020 02:18:20 AM [facility] Name Value Range Interpretation Code Description Data Lou rce(s) Supporting Document(s) Color of Urine [facility] Clarity of Urine [facility] Specific gravity of Urine by Refractometry automated 1.010 1.003 -1.030 [facility] pH of Urine by Automated test strip 7.0 5.0-8.0 [facility] Protein [Mass/volume] in Urine by Automated test strip Neg [facility] Glucose [Mass/volume] in Urine by Automated test strip Neg [facility] Ketones [Mass/volume] in Urine by Automated test strip Neg [facility] Bilirubin.total [Presence] in Urine by Automated test strip Negative [facility] Hemoglobin [Presence] in Urine by Automated test strip Neg [facility] Leukocyte esterase [Presence] in Urine by Automated test strip Negative [facility] Nitrite [Presence] in Urine by Automated test strip Negati ve [facility] Leukocytes [#/area] in Urine sediment by Automated count 0 /HPF 0 -5 [facility] Erythrocytes [#/area] in Urine sediment by Automated count 0 /HPF 0-3 [facility] Service comment [facility] ID Date Data Source [id number] 12/14/2020 10:43:44 AM [facility] Service Cmnt XXX-Imp : L ARMMicroorganis m XXX Cult : No growth 5 days Name Value Range Interpretation Code Description Data Lou rce(s) Supporting Document(s) ID Date Data Source [id number] 12/11/2020 07:07:[address] [facility] Name Value Range Interpretation Code Description Data Lou rce(s) Supporting Document(s) ABO and Rh group [Type] in Blood [facility] Blood group antibody screen [Presence] in Serum or Plasma [facility] Performed at [facility], Raquel Stark Geeta brody, [id number] ID Date Data Source [id number] 12/08/2020 11:59:00 PM EDT [facility] Name Value Range Interpretation Code Description Data Lou rce(s) Supporting Document(s) SARS-CoV-2 RNA 2019 nCoV Real-Time RT-PCR: NOT DETECTED [facility] This lab was ordered by [facility] and reported by [facility]. ID Date Data Source [id number] 12/09/2020 09:30:29 AM EDT [facility] Value Range Interpretation Code Description Data Lou rce(s) Supporting Document(s) Specimen source [Identifier] of Unspecified specimen [facility] SARS-CoV-2 RNA 2019 nCoV Real-Time RT-PCR: NOT DETECTED [facility] Assay Performed [facility] Patients first test for [facility] Patient employed in healthcare setting [facility] Patient has symptoms related to [facility] When did you start to experience these symptoms [Date and time] [Phen X] [facility] Patient was hospitalized because of this condition [facility] patient was admitted to ICU for [facility] Patient resides in a congregate care setting [facility] status [facility] ID Date Data Source [id number] 12/09/2020 12:23:[address] [facility] Name Value Range Interpretation Code Description Data Lou rce(s) Supporting Document(s) Leukocytes [#/volume] in Blood by Automated count 11.0 10*3/uL 4-10 H [facility] Erythrocytes [#/volume] in Blood by Automated count 2.48 10*6/uL 4.6- 6.1 L [facility] Hemoglobin [Mass/volume] in Blood 6.6 g/dL 13.5-18 L [facility] Hematocrit [Volume Fraction] of Blood by Automated count 20.1 % 4 1-53 [facility] Called to and read back by fito starr rn 6i [id number] at 0022 by 1522 Erythrocyte mean corpuscular volume [Entitic volume] by Auto mated count 81.1 fL 80-96 [facility] Erythrocyte mean corpuscular hemoglobin [Entitic mass] by Automated count 26.6 pg 27-33 L [facility] Erythrocyte mean corpuscular hemoglobin concentration [Mass/volume] by Automated count 32.7 g/dL 32.0-36.0 [facility] Erythrocyte distribution width [Ratio] by Automated count 16.2 % 11.5-14.5 H [facility] Platelets [#/volume] in Blood by Automated count 131 10*3/uL 150-400 L [facility] ID Date Data Source [id number] 12/09/2020 12:31:19 AM [facility] Value Range Interpretation Code Description Data Lou rce(s) Supporting Document(s) aPTT in Platelet poor plasma by Coagulation assay 31.0 s 24.0-33. 0 [facility] ID Date Data Source [id number] 12/09/2020 12:31:19 AM [facility] Value Range Interpretation Code Description Data Lou rce(s) Supporting Document(s) Prothrombin time (PT) 16.9 s 11.6-14.0 H [facility] INR in Platelet poor plasma by Coagulation assay 1.44 [facility] Routine intensity oral anticoagulation I NR is typically 2.0-3.0. Target INR must be clinically individualized. ID Date Data Source [id number] 12/09/2020 12:52:30 AM [facility] Value Range Interpretation Code Description Data Lou rce(s) Supporting Document(s) Lipase [Enzymatic activity/volume] in Serum or Plasma 226 U/L 13-6 0 H [facility] ID Date Data Source [id number] 12/09/2020 12:52:30 AM [facility] Value Range Interpretation Code Description Data Lou rce(s) Supporting Document(s) Albumin [Mass/volume] in Serum or Plasma by Bromocresol green (BCG) dye binding method 2.4 g/dL 3.5-5.[address] [facility] al Bilirubin.total [Mass/volume] in Serum or Plasma 1.0 mg/dL <1.2 [facility] Calcium [Mass/volume] in Serum or Plasma 7.9 mg/dL 8.6-10.0 L [facility] Chloride [Moles/volume] in Serum or Plasma 97 mmol/L 98-107 L [facility] Creatinine [Mass/volume] in Serum or Plasma 0.49 mg/dL 0.70-1.20 L [facility] Glucose [Mass/volume] in Serum or Plasma 92 mg/dL 70-140 [facility] Alkaline phosphatase [Enzymatic activity/volume] in Serum or Plasma 121 U/L 40-129 [facility] Potassium [Moles/volume] in Serum or Plasma 3.9 mmol/L 3.4-5.1 [facility] Protein [Mass/volume] in Serum or Plasma 4.8 g/dL 6.4-8.3 L [facility] Sodium [Moles/volume] in Serum or Plasma 125 mmol/L 136-145 L [facility] Aspartate aminotransferase [Enzymatic activity/volume] in Serum or Plasma 52 U/L <40 H [facility] Urea nitrogen [Mass/volume] in Serum or Plasma 17 mg/dL 6-20 [facility] Osmolality of Serum or Plasma by calculation 261 mosm/kg 275-300 [facility] Creatinine/Urea nitrogen [Mass Ratio] in Serum or Plasma 35 [facility] Bicarbonate [Moles/volume] in Serum 22 mmol/L 22-29 [facility] Alanine aminotransferase [Enzymatic activity/volume] in Seru m or Plasma 21 U/L <41 [facility] Anion gap 3 in Serum or Plasma 6 mmol/L 8-15 L [facility] Glomerular filtration rate/1.73 sq M pre dicted among non-blacks [Volume Rate/Area] in Serum or Plasma by Creatinine-based formula (MDRD) >6 0 [facility] Glomerular filtration rate/1.73 sq M pre dicted among blacks [Volume Rate/Area] in Serum or Plasma by Creatinine-based formula (MDRD) >60 [facility] ID Date Data Source [id number] 12/08/2020 06:44:00 PM EDT [facility] Name Value Range Interpretation Code Description Data Lou rce(s) Supporting Document(s) SARS coronavirus 2 RNA [Presence] in Res piratory specimen by TOYA with probe detection [facility] This lab was ordered by [facility] a nd reported by [facility]. ID Date Data Source [id number] 11/26/2020 08:42:[address] [facility] Name Value Range Interpretation Code Description Data Lou rce(s) Supporting Document(s) ED Provider Note [facility] VJLJQi6xQsJEMmLx30/FYDnoKEMfi4HySGccXNi1XJwaLEWfZ7JvAKD5mW0iOMG0YBvRDsOnGcZoKzK2 lbm [file] AwMzQzNiAwMDAwMCBuDQowMDAwMDAzNjQwIDAwMDAw DP3WReHbOJDnIDU7LaUnKKJnGNQlcc6FXEAwYJYxZaO2CTCsCCMlPKNuAVhlBAJtBHW0UlB6NJLfDOQs MC1CPxJfXIHySYr2AVDmJTVkVIOlfy8WAGHcQFSbXhTaQHDhVJXbSQYlIWqrTFQyWOWxZdV4AADnLMQx WG4FHpOvPIZgXTV2TLPqBGUdZLLuzk8BTJGcTHCgWp SoLHEsVLXoHTRrOUtaXCEpBZJ7SWXwXCKiGXHiAL8AKsAnIFAuMZs4QRzvFAWvWBWhaw1HSXKdKQYhBo P2IMZrRNMcTTGqJLurEVToNQLtUtI1LLLxHBBwNS3TZsGdZDCmAhXcSpiqHNFuAAKhap2CDOQjQUIsRr N0QEIrEVRnWIRiSCanNKPtTAK7GsaaCLOuZDKmWN8O PxYcRTVbXxy8KUChXQRnIDNaxn7FSLSlDTIvXbQmUvEiTEBuVZDgKCjxRYIfJCLaILWnUMMdXUNhQM3G QsNaJHLdKfO3VTYtEBPnHIHgjz7LIDNcNKAgGNgdPPPjEBJzZBFiARdhDIFvLAQ6IekqTQWtRWDcLH1C FvGtLCJxIrn2YQctNMOrADZoee6QLENhUZN3DWe1VR RjYNPeTIVrXSmcVBGvHOWsLABiMPQeZMEsQH5BSuWwUASwEOPnJbDbGXPmRDMnrn4TROVeXWB9QfKnMZ RwOSByKVWjEHgyPORaIQXlLDFhTLHmSARwDL0JHpPfDEPmXZUwQoMbFVQiGKTekv4XTJXnNGI1LuD2Ho XuOSPeMHXvMUmrKMNqWLYzVjJyPSPrOSXrEG8OYgEh KLJtSBUeWiMcBLUqEDNjwu3GWCHqDZR3JMI7QeDtZWSyTSAwTOhuFDCvZMD5EtBvWWIfAYHmVZ6ADkJz HUWjZVQ0RFKjIZPjOIVwuq2EEBErTCA0YeU7HzGeFUKuNEVnRLvfSCPkQIA3QWhgZOKeVZDbZM1FZdLl RAScFItoAbMlKVNkIOIfew9NCKSzWZE6LtD5DbMlYB KhZNWrQCxfPHLwOGN0PvCaGOEcLCJhCO4BXvRbCTArJEbxEOPpYHIjBEPywe3QHMItSOO5AEU7AvIyVF VbRBBeATrsWHSoZZL4OAZ3KDBaQORtUL1NMrEkLTZtECs0XwxlADJzLPVeae4ULZZpSKY4FKs7CeOeHW MnHTLpTDytDHZbLDAnRDL1ASCzARRgHG1QIgVpXEPu FeArFMceVTRoJERbnz1SxHRmmBqkmk7VXRpUHt7TlIwpISGfTMixDt8guOT8AbPiVALZHn3AylLxJRAg NWNNLFcqNANhHODgINV7KZImGhT7IZDlIYKfRPK7SKchZ1S5CyunLWQ1DdD4V0T3FyqdDdY9YflxHJVn UPT8RbzoBEXnPfL7OEM3Lqr+HR9qHRi+Cw9Eu9HhtyY0quHfTOq1TIR3Wq4NLZGOL6EAVu== ID Date Data Source [id number] 11/17/2020 11:27:[address] [facility] Name Value Range Interpretation Code Description Data Lou rce(s) Supporting Document(s) Discharge Summary [facility] HLBVYt9oJmVFEiMl50/LGSjzPNXrv7GkNBkzQZx2OAxbMSFaE5OiDQS7wM2sHLO8FRmMFsHoIsAgSkMn lbm [file] G5CkE2HSgjDx9cWFDGOw7+ILhjbAOmlGekQCTTAaT0UHK1BWkvJUPITq2B ID Date Data Source [id number] 11/17/2020 03:42:[address] [facility] Name Value Range Interpretation Code Description Data Lou rce(s) Supporting Document(s) Progress Note [facility] YNRZFh1eNlUXPpQu36/DJXukVDWcm1QgYOwlREx0VVqqFTVyV5DdCAZ9lH6jSCH0YKyPDuPvNdGfDoKe lbm [file] YNCg== ID Date Data Source [id number] 11/17/2020 03:24:[address] [facility] Name Value Range Interpretation Code Description Data Lou rce(s) Supporting Document(s) Consultation [facility] KBGZTc9yJvQNPhYp96/DXQbrRLCgw9SxLRdfJSf1GYllEBAuB8IkDRD3rM1nPGW8FGhMJaOgXhMuSkMz lbm [file] NmYJI3V5PyHQJdENhbBOB5WRnaCXTyOBAlLzEtAO 3HZz1PPxF3OYW1aHSiIc3RQhL4OQUJYtMfJZ0GQRh= ID Date Data Source [id number] 11/17/2020 02:27:[address] [facility] Name Value Range Interpretation Code Description Data Lou rce(s) Supporting Document(s) Leukocytes [#/volume] in Blood by Automated count 8.2 10*3/uL 4-10 [facility] Erythrocytes [#/volume] in Blood by Automated count 3.30 10*6/uL 4.6- 6.1 L [facility] Hemoglobin [Mass/volume] in Blood 8.8 g/dL 13.5-18 L [facility] Hematocrit [Volume Fraction] of Blood by Automated count 26.5 % 4 1-53 L [facility] Erythrocyte mean corpuscular volume [Entitic volume] by Auto mated count 80.3 fL 80-96 [facility] Erythrocyte mean corpuscular hemoglobin [Entitic mass] by Automated count 26.6 pg 27-33 L [facility] Erythrocyte mean corpuscular hemoglobin concentration [Mass/volume] by Automated count 33.1 g/dL 32.0-36.0 [facility] width [Ratio] by Automated count 19.2 % 11.5-14.5 H [facility] Platelets [#/volume] in Blood by Automated count 203 10*3/uL 150-400 [facility] Confirmed ID Date Data Source [id number] 11/17/2020 09:20:[address] [facility] US ABDOMEN LIMITED [id number] RESULTInte rpreted by:ALEX CarringtonROCEDURE INFORMATION: Exam: US [...] which has nodular contour. Series 1, image [id number] indicates normal portal hepatopetal flow of the [...] rce(s) Supporting Document(s) ID Date Data Source [id number] 11/17/2020 08:51:22 AM [facility] Name Value Range Interpretation Code Description Data [facility]) [facility] EJEAGk2sUyYUEsYe25/TGHmyIGHve9YaNVxxFDp3WKroGURuG5OuDFP0xO1bXJI6PEyGPcOnNkBlNyWz m [file] Rp4KJfQ6SIS9sKRaTu0WZKjhNa9QVZCNB9UIUl== ID Date Data Source [id number] 11/17/2020 08:31:[address] [facility] Name Value Range Interpretation Code Description Data Lou rce(s) Supporting Document(s) Glucose [Mass/volume] in Capillary blood by Glucometer 133 mg/dL 70- 140 [facility] ID Date Data Source [id number] 11/17/2020 07:48:[address] [facility] Name Value Range Interpretation Code Description Data Lou rce(s) Supporting Document(s) History and Physical [facility] KBEPOf8pOkNTYtGs12/VCVotBIPdv9XqZYlzMOz9MXhvCXBpA4TaVIF7mN4lIBK2YTdWJwEcCbRmGnNb lbm [file] gold stamper+AZJxoVZkJOReWepNjwJr9sW3ojLGqkI37CW4yC2JacUQM2+rS2tl2YtJX+80gh4i2fKkW7eZBShH [file] [id number] ID Date Data Source [id number] 11/17/2020 03:04:[address] [facility] Name Value Range Interpretation Code Description Data Lou rce(s) Supporting Document(s) Leukocytes [#/volume] in Blood by Automated count 7.4 10*3/uL 4-10 [facility] Erythrocytes [#/volume] in Blood by Automated count 3.00 10*6/uL 4.6- 6.1 L [facility] Hemoglobin [Mass/volume] in Blood 7.8 g/dL 13.5-18 L [facility] Hematocrit [Volume Fraction] of Blood by Automated count 24.0 % 4 1-53 L [facility] Erythrocyte mean corpuscular volume [Entitic volume] by Auto mated count 80.2 fL 80-96 [facility] Erythrocyte mean corpuscular hemoglobin [Entitic mass] by Automated count 26.1 pg 27-33 L [facility] Erythrocyte mean corpuscular hemoglobin concentration [Mass/volume] by Automated count 32.6 g/dL 32.0-36.0 [facility] E[facility]th[facility] distribution width [Ratio] by Automated count 19.2 % 11.5-14.5 H [facility] Platelets [#/volume] in Blood by Automated count 165 10*3/uL 150-400 [facility] Differential cell count method - Blood [facility] Neutrophils/100 leukocytes in Blood by Automated count 62 % [facility] Lymphocytes/100 leukocytes in Blood by Automated count 13 % [facility] Monocytes/100 leukocytes in Blood by Automated count 21 % [facility] Eosinophils/100 leukocytes in Blood by Automated count 3 % [facility] Basophils/100 leukocytes in Blood by Automated count 1 % [facility] Neutrophils [#/volume] in Blood by Automated count 4.58 10*3/uL 1.8-7 .0 [facility] Lymphocytes [#/volume] in Blood by Automated count 0.99 10*3/uL 1.2-4 .0 L [facility] Monocytes [#/volume] in Blood by Automated count 1.58 10*3/uL 0-0.8 H [facility] Eosinophils [#/volume] in Blood by Automated count 0.22 10*3/uL 0-0.5 [facility] Basophils [#/volume] in Blood by Automated count 0.04 10*3/uL 0-0.2 [facility] Nucleated erythrocytes/100 leukocytes [Ratio] in Blood by Automated count 0 /100{WBCs} 0-0 [facility] ID Date Data Source [id number] 11/17/2020 03:21:33 AM EDT [facility] Name Value Range Interpretation Code Description Data Lou rce(s) Supporting Document(s) Bicarbonate [Moles/volume] in Serum 27 mmol/L 22-29 [facility] Chloride [Moles/volume] in Serum or Plasma 97 mmol/L 98-107 [facility] Creatinine [Mass/volume] in Serum or Plasma 0.44 mg/dL 0.70-1.20 [facility] Glucose [Mass/volume] in Serum or Plasma 117 mg/dL 70-140 [facility] Potassium [Moles/volume] in Serum or Plasma 3.2 mmol/L 3.4-5.1 [facility] Sodium [Moles/volume] in Serum or Plasma 132 mmol/L 136-145 [facility] Urea nitrogen [Mass/volume] in Serum or Plasma 6 mg/dL 6-20 [facility] Anion gap 3 in Serum or Plasma 8 mmol/L 8-15 [facility] Osmolality of Serum or Plasma by calculation 273 mosm/kg 275-300 L [facility] Creatinine/Urea nitrogen [Mass Ratio] in Serum or Plasma 14 [facility] Calcium [Mass/volume] in Serum or Plasma 7.7 mg/dL 8.6-10.0 L [facility] Glomerular filtration rate/1.73 sq M pre dicted among non-blacks [Volume Rate/Area] in Serum or Plasma by Creatinine-based formula (MDRD) >6 0 [facility] Glomerular filtration rate/1.73 sq M pre dicted among blacks [Volume Rate/Area] in Serum or Plasma by Creatinine-based formula (MDRD) >60 [facility] ID Date Data Source [id number] 11/17/2020 02:46:49 AM EDT [facility] Value Range Interpretation Code Description Data Lou rce(s) Supporting Document(s) Glucose [Mass/volume] in Capillary blood by Glucometer 132 mg/dL 70- 140 [facility] ID Date Data Source [id number] 11/16/2020 11:03:46 PM [facility] Value Range Interpretation Code Description Data Lou rce(s) Supporting Document(s) Glucose [Mass/volume] in Capillary blood by Glucometer 152 mg/dL 70- 140 [facility] ID Date Data Source [id number] 11/16/2020 07:34:41 PM [facility] Value Range Interpretation Code Description Data Lou rce(s) Supporting Document(s) Glucose [Mass/volume] in Capillary blood by Glucometer 135 mg/dL 70- 140 [facility] ID Date Data Source [id number] 11/16/2020 05:29:34 PM [facility] Value Range Interpretation Code Description Data Lou rce(s) Supporting Document(s) Glucose [Mass/volume] in Capillary blood by Glucometer 90 mg/dL 70- 140 [facility] ID Date Data Source [id number] 11/16/2020 04:15:48 PM [facility] Value Range Interpretation Code Description Data Lou rce(s) Supporting Document(s) Glucose [Mass/volume] in Capillary blood by Glucometer 218 mg/dL 70- 140 [facility] ID Date Data Source [id number] 11/16/2020 03:39:03 PM [facility] Value Range Interpretation Code Description Data Lou rce(s) Supporting Document(s) Leukocytes [#/volume] in Blood by Automated count 8.0 10*3/uL 4-10 [facility] Erythrocytes [#/volume] in Blood by Automated count 3.42 10*6/uL 4.6- 6.1 L [facility] Hemoglobin [Mass/volume] in Blood 8.9 g/dL 13.5-18 L [facility] Hematocrit [Volume Fraction] of Blood by Automated count 27.6 % 4 1-53 L [facility] Erythrocyte mean corpuscular volume [Entitic volume] by Auto mated count 80.8 fL 80-96 [facility] Erythrocyte mean corpuscular hemoglobin [Entitic mass] by Automated count 26.1 pg 27-33 L [facility] Erythrocyte mean corpuscular hemoglobin concentration [Mass/volume] by Automated count 32.3 g/dL 32.0-36.0 [facility] E[facility] distribution width [Ratio] by Automated count 19.1 % 11.5-14.5 H [facility] Platelets [#/volume] in Blood by Automated count 159 10*3/uL 150-400 [facility] Differential cell count method - Blood [facility] Neutrophils/100 leukocytes in Blood by Automated count 69 % [facility] Lymphocytes/100 leukocytes in Blood by Automated count 10 % [facility] Monocytes/100 leukocytes in Blood by Automated count 16 % [facility] Eosinophils/100 leukocytes in Blood by Automated count 4 % [facility] Basophils/100 leukocytes in Blood by Automated count 1 % [facility] Neutrophils [#/volume] in Blood by Automated count 5.58 10*3/uL 1.8-7 .0 [facility] Lymphocytes [#/volume] in Blood by Automated count 0.79 10*3/uL 1.2-4 .0 L [facility] Monocytes [#/volume] in Blood by Automated count 1.32 10*3/uL 0-0.8 H [facility] Eosinophils [#/volume] in Blood by Automated count 0.31 10*3/uL 0-0.5 [facility] Basophils [#/volume] in Blood by Automated count 0.04 10*3/uL 0-0.2 [facility] Nucleated erythrocytes/100 leukocytes [Ratio] in Blood by Automated count 0 /100{WBCs} 0-0 [facility] ID Date Data Source [id number] 11/16/2020 11:51:13 AM [facility] Name Value Range Interpretation Code Description Data Lou rce(s) Supporting Document(s) Glucose [Mass/volume] in Capillary blood by Glucometer 106 mg/dL 70- 140 [facility] ID Date Data Source [id number] 11/16/2020 07:59:02 AM [facility] Name Value Range Interpretation Code Description Data Lou rce(s) Supporting Document(s) Glucose [Mass/volume] in Capillary blood by Glucometer 119 mg/dL 70- 140 [facility] ID Date Data Source [id number] 11/16/2020 05:48:[address] [facility] Name Value Range Interpretation Code Description Data Lou rce(s) Supporting Document(s) Glucose [Mass/volume] in Capillary blood by Glucometer 101 mg/dL 70- 140 [facility] ID Date Data Source [id number] 11/19/2020 09:27:[address] [facility] Surgical Pathology ReportName: JEFRY MORINMRN: [id number] Number: [id number] Date: 11/16/2020 00:00Received Date: 11/16/2020 11:32Physician(s): RON LINARES MD OZDEN, NURI,[facility] To:DONAL FUNEZHAS[facility]ERpecimen(s) ReceivedA: Antrum biopsyClinical HistoryMelena.DiagnosisSTOMACH, ANTRUM, BIOPSY: MILD CHRONIC GASTRITIS. NO H. PYLORI IDENTIFIED. Electronically Signed By Kelle Ordaz MD, Attending Pathologist 109:27:42Professional services performed at [facility] Pathology Laboratory [facility], [address] [place] [address]. Unless 'gross-only'is specified, the final diagnosis is [...] and their pe rformance characteristics determined by [facility] Pathology department. They have not been cleared or approved by the USFood and Drug Administration. The FDA has determined that such clearanceor approval is not necessary. Name Value Range Interpretation Code Description Data Lou rce(s) Supporting Document(s) ID Date Data Source [id number] 11/16/2020 12:27:[address] [facility] Name Value Range Interpretation Code Description Data Lou rce(s) Supporting Document(s) Bicarbonate [Moles/volume] in Serum 21 mmol/L 22-29 [facility] Chloride [Moles/volume] in Serum or Plasma 99 mmol/L 98-107 [facility] Creatinine [Mass/volume] in Serum or Plasma 0.54 mg/dL 0.70-1.20 [facility] Glucose [Mass/volume] in Serum or Plasma 106 mg/dL 70-140 [facility] Potassium [Moles/volume] in Serum or Plasma 4.0 mmol/L 3.4-5.1 [facility] Sodium [Moles/volume] in Serum or Plasma 130 mmol/L 136-145 [facility] Urea nitrogen [Mass/volume] in Serum or Plasma 8 mg/dL 6-20 [facility] Anion gap 3 in Serum or Plasma 11 mmol/L 8-15 [facility] Osmolality of Serum or Plasma by calculation 269 mosm/kg 275-300 [facility] Creatinine/Urea nitrogen [Mass Ratio] in Serum or Plasma 16 [facility] Calcium [Mass/volume] in Serum or Plasma 8.2 mg/dL 8.6-10.0 [facility] Glomerular filtration rate/1.73 sq M pre dicted among non-blacks [Volume Rate/Area] in Serum or Plasma by Creatinine-based formula (MDRD) >6 0 [facility] Glomerular filtration rate/1.73 sq M pre dicted among blacks [Volume Rate/Area] in Serum or Plasma by Creatinine-based formula (MDRD) >60 [facility] ID Date Data Source [id number] 11/16/2020 12:16:14 AM EDT [facility] Name Value Range Interpretation Code Description Data Lou rce(s) Supporting Document(s) Leukocytes [#/volume] in Blood by Automated count 10.6 10*3/uL 4-10 [facility] Erythrocytes [#/volume] in Blood by Automated count 3.43 10*6/uL 4.6- 6.1 [facility] Hemoglobin [Mass/volume] in Blood 8.9 g/dL 13.5-18 [facility] Hematocrit [Volume Fraction] of Blood by Automated count 27.7 % 4 1-53 [facility] Erythrocyte mean corpuscular volume [Entitic volume] by Auto mated count 80.9 fL 80-96 [facility] Erythrocyte mean corpuscular hemoglobin [Entitic mass] by Automated count 25.9 pg 27-33 [facility] Erythrocyte mean corpuscular hemoglobin concentration [Mass/volume] by Automated count 32.0 g/dL 32.0-36.0 [facility] Erythrocyte distribution width [Ratio] by Automated count 18.7 % 11.5-14.5 [facility] Platelets [#/volume] in Blood by Automated count 136 10*3/uL 150-400 [facility] Differential cell count method - Blood [facility] Neutrophils/100 leukocytes in Blood by Automated count 72 % [facility] Lymphocytes/100 leukocytes in Blood by Automated count 7 % [facility] Monocytes/100 leukocytes in Blood by Automated count 17 % [facility] Eosinophils/100 leukocytes in Blood by Automated count 3 % [facility] Basophils/100 leukocytes in Blood by Automated count 1 % [facility] Neutrophils [#/volume] in Blood by Automated count 7.64 10*3/uL 1.8-7 .0 [facility] Lymphocytes [#/volume] in Blood by Automated count 0.71 10*3/uL 1.2-4 .0 [facility] Monocytes [#/volume] in Blood by Automated count 1.83 10*3/uL 0-0.8 [facility] Eosinophils [#/volume] in Blood by Automated count 0.34 10*3/uL 0-0.5 [facility] Basophils [#/volume] in Blood by Automated count 0.06 10*3/uL 0-0.2 [facility] Nucleated erythrocytes/100 leukocytes [Ratio] in Blood by Automated count 0 /100{WBCs} 0-0 [facility] ID Date Data Source [id number] 11/15/2020 11:51:[address] [facility] Name Value Range Interpretation Code Description Data Lou rce(s) Supporting Document(s) Glucose [Mass/volume] in Capillary blood by Glucometer 108 mg/dL 70- 140 [facility] ID Date Data Source [id number] [facility] Name Value Range Interpretation Code Description Data Lou rce(s) Supporting Document(s) [facility] OIKLYx5yDlCWDwFn41/SYJkzIOZug2PrQXjcBPq2CEewPMWwP7MhNYM2kU6tRHR0WBqJHsWvZnOjJpS5 lbm HuGbtBAfGgQJLmWprZDyQvCJirWgtmsPLpZX7VmZS7AMBxO19vIJMsVERfX7OdMPI0XKK+Ql8JGUCmfR GwRC2SGawW5S6TihsEAB6HeV/HYDBUTnko4hGtvJD2WUdv9IAPWNMyMNEtDmZHecfgZe8+jviJUKv1ai SJP6KN32ssSt/HOOfCF2PB/flaJai8h1OY9n/61zB2 VO9O/fUvalPNddbVNr+pObYXF2NUoBlEd9Oc7fj6gKYMx2db3R9t6lPOaznSYUOFC3S70J13k0Kc/6ts 803VIyCcw1ynd0xXipUW68AjwYk3UB6uUlKxntMAt1RZjYkRAtAKuRYEjoiJmFDVlP1qc6Cz0bFUzvFa A/ycg2W/GklTk0KatWXGvkG2UTcfIcDe9wvKxtmyKl IpzQ1Xzo5uljk9EIE0i+3AXXdum+xAAAmfozX5Oshq+2aHU4mgK4Fw4Rkpy9kBftnLRX+oUX3HZI0g4v Zs/4gzZptNaTg5UOgt8YY8v47NIrb0pgVYbt9eB3xdRf8ft+GcithjApfY9shdD1c08Mj4YTH8mHC5i/ 8UnnWvDXSGYbYmx7mM7y0hXnRgNH13AtC7aGAYvEH7 jPzws4FrAOBzGlZYluFXlI/dfGYa9buarlphiZPMb0miTzZII+ZnqTkghssB3iWVdaIVHyNh197XpXpi Zunk++QWI5Kg87jY3VD6H7pfdWNiyiqn1/AImt8uENP05uOF1p87LaXB0//MbUMU5/rfprbsMgcdJwff 0kSPUTMQE0ApfRwGDRvXLSJ/GFwu30FHCKKAx6ZKAi [file] AgICAgICAgICAgICAgICAgICAgICAgICAgICAgICAg ICAgICAgICAgICAgICAgICAgICAgICAgICAgICAgICAgICAgICAgICAgDQogICAgICAgICAgICAgICAg ICAgICAgICAgICAgICAgICAgICAgICAgICAgICAgICAgICAgICAgICAgICAgICAgICAgICAgICAgICAg ICAgICAgICAgICAgICAgICAgICAgICAgDQogICAgIC AgICAgICAgICAgICAgICAgICAgICAgICAgICAgICAgICAgICAgICAgICAgICAgICAgICAgICAgICAgIC AgICAgICAgICAgICAgICAgICAgICAgICAgICAgICAgICAgDQogICAgICAgICAgICAgICAgICAgICAgIC AgICAgICAgICAgICAgICAgICAgICAgICAgICAgICAg ICAgICAgICAgICAgICAgICAgICAgICAgICAgICAgICAgICAgICAgICAgICAgDQogICAgICAgICAgICAg ICAgICAgICAgICAgICAgICAgICAgICAgICAgICAgICAgICAgICAgICAgICAgICAgICAgICAgICAgICAg ICAgICAgICAgICAgICAgICAgICAgICAgICAgDQogIC AgICAgICAgICAgICAgICAgICAgICAgICAgICAgICAgICAgICAgICAgICAgICAgICAgICAgICAgICAgIC AgICAgICAgICAgICAgICAgICAgICAgICAgICAgICAgICAgICAgDQogICAgICAgICAgICAgICAgICAgIC AgICAgICAgICAgICAgICAgICAgICAgICAgICAgICAg ICAgICAgICAgICAgICAgICAgICAgICAgICAgICAgICAgICAgICAgICAgICAgICAgDQogICAgICAgICAg ICAgICAgICAgICAgICAgICAgICAgICAgICAgICAgICAgICAgICAgICAgICAgICAgICAgICAgICAgICAg ICAgICAgICAgICAgICAgICAgICAgICAgICAgICAgDQ ogICAgICAgICAgICAgICAgICAgICAgICAgICAgICAgICAgICAgICAgICAgICAgICAgICAgICAgICAgIC AgICAgICAgICAgICAgICAgICAgICAgICAgICAgICAgICAgICAgICAgDQogICAgICAgICAgICAgICAgIC AgICAgICAgICAgICAgICAgICAgICAgICAgICAgICAg VCRhRZAdOJIySBVfCZOtYKEoAZSxHWRpRKJaLETsTKUpOIQjAJFdPSLlJEPbDZUmFWDoFMw3F9wbZZZt LUUnHS8uPWs2Bh8+PLzNCyXqTQA6isDwkL4VDN2lf7OwUBsyNXBny7RhXXg8XQ2CMVWtUDmnJZ1HNPdf cq3EXBVkPIGlcBEYf7ynKkOdKNW4RSSmGprvZS9RLH FlJ6kcqhYfJKByQOUIIJcvRGIZKLaaUYAFRMBuEEZyEsPlZnJrBHRdVACyNHTWRK9OOaGvB2XroD12XR YNCj4+AFlxzbRjGslHAyY5PCByl5HiQWf8LB4NWZOqUfmea4TaDbSgEMHURQvnCH6CEBL4BWX9ORSvMb 4GKBAqF399ttDrCN4BAy9FMcTrYW4tzd5FXsXfNDHz OvqOZss5AOqbGT5JxHPtFCnJb30vtGr2xaVzqLSDWLP0hDIERMJdlBOmrHjeTQDRPeNisYA4EuV7MrAz BuDxGTI8YrebDT8iNXoeOG7SRHZ1MIriTHNgBQXtJ9zNLzXrEDKvZRMfqSltHN8BBrPkH8YpalDweGIo NSAwIFINCj4+DAhbbsXxZkhMTuU8ZTEyn2DuDCo8UR 5RHVIyBWioVY1ADUWprT6gGOnoLF0KEiNuByBvPNHMBpAvB69skIMdNRi8U4MbZgAbWTUhIbjaTGQoZY wvTmFtZXMgWyBdDQogID4+ID4+NXbuOR2VJXqxigAdMSDjUj2GKNYbBEKhMY2wARGmBHUvW7Q1iRyxIJ YXWhRfA8pueevnXF9hAWNmI401uTmwtqLtHLP9NXDf Xq3FAGMcFBT0GVLrlUPpWrHvNIMAAZlwJT2QuTPuSKZ2tW6fAHckYNLyBTYtQ4vBNmAxbUcrSR31aSel bnVsbCBdDQo+Gy5AMA8xu6HiHJa3amIjEEmyZYT0NOwsAJPzOISqOCQuWNQ5YYC7ILRYZjOpOZUcCROy YKqpHVXoWGPjci8BBYFwBJYrMYWtRISyJAMuJBPpXJ fyGDTaFYQ7BNSdSEXxBUUjSI9CAtZxKNTuSGBwKWfnRJKyQAQzgy3CSXIqVPMfDqt9ANAiHSHoFLTgVI lfUGUrIZY0EWu7UGOlWNTwQR7AXbJyTSMoRRV8OzCiMLKtOSGpco7SEBUxBPDnSqS3PDPcEESzZDBkXM adUKBgMJG4YYG7IQDzXUAxXQ9GKdAoINZiDPAqPRwm DEScXANoul7RZHNfNZMyEbUtDyPqFZDpDRMfGBngTHPgWWIiZsF5JWAkXUHsTI1ZYvYbHNIjKGR4HPFh JDBiXVVgot4SYJKmAUHjFVg6PCAbREErSGYaUCnpBNQfTLB6ILS5MXGoRSLoYV4QSlQsRVCpVDK3MVOq HQKqJAJhpp2GBYOgSYAoMvttOsWwTCNvATHuUSltWC ZrGAC7TGItUZHvPTVtXP5ZXhMcPLPwNSxnXNUpLPLcTWKyhp9RFEJpWFWgMIL3NhCiSAPnXBZdHJasRA DwZYF7TiX5LBRkMJQqEE5UYqSfMYDpABo5BmQtRLVaOVZjmt9APGZsUBWzENT4ZeQjKKVoMKQwMVatTV XbETBbKJw9UNXnLZSdNU7UEwFvBBXjAuR8DeBhSHWk MMCthy2XXZZbOIDjSpN2AmAhYZYnWOSiXZxrXWDvLYYgOGa2NMOeTQTfAF7JYsDdMBXiMyR5RYKiMSUg ZEYklk5VVMGaJVPqUhfgPbEkEBUyHMKdGYpfKCOpUFCbUTF4FZOfRFDiFK5OFiUqBHYtBhVqXHMlHRGr DOEkjg3CEQJoXCLsSYNtHUAiYZCeSLOmLProRHRoVN V0Plq2PEWwQFCiBY5FWrPgIKUrMtV7ANCyFZWvYQQiaf4XPQGnJOJhIcJ8OxQdVTEeFPFbSGnuFTFxNL O2OzU9WERcQJZbIZ8HDwJeEZCiWhU6PKymDOTkNNDcni5FfGKraRebxk1WMYwENl4EgKybLIR8MUuiQq 1epZMyYlKaFBPZWc3XtrQxZKRlGSKOTAluYXWrHOUr XAV9GOjzGtM2ZXJpKUBjBzHbWIN1NQF8ROh7Wsx7IvL1HeZvNSr9Z1W2Klh2LxIiPRCcYUJ5EeayZtFx OTUzOTQ+GR7xPAy+Xc0Qr1EriqY0hsYrJCdsOqq0No0BMKBPM8FFZi== ID Date Data Source [id number] 11/15/2020 07:26:24 PM [facility] Value Range Interpretation Code Description Data Lou rce(s) Supporting Document(s) Glucose [Mass/volume] in Capillary blood by Glucometer 109 mg/dL 70- 140 [facility] ID Date Data Source [id number] 11/15/2020 04:11:20 PM [facility] Value Range Interpretation Code Description Data Lou rce(s) Supporting Document(s) Glucose [Mass/volume] in Capillary blood by Glucometer 111 mg/dL 70- 140 [facility] ID Date Data Source [id number] 11/15/2020 04:23:03 PM [facility] Value Range Interpretation Code Description Data Lou rce(s) Supporting Document(s) Albumin [Mass/volume] in Serum or Plasma by Bromocresol green (BCG) dye binding method 3.3 g/dL 3.5-5.2 [facility] Bil[facility].total [Mass/volume] in Serum or Plasma 1.9 mg/dL <1.2 [facility] Bilirubin.direct [Mass/volume] in Serum or Plasma 1.1 mg/dL <0.3 [facility] Alkaline phosphatase [Enzymatic activity/volume] in Serum or Plasma 135 U/L 40-129 [facility] Aspartate aminotransferase [Enzymatic activity/volume] in Serum or Plasma 267 U/L <40 [facility] Alanine aminotransferase [Enzymatic activity/volume] in Seru m or Plasma 136 U/L <41 [facility] Protein [Mass/volume] in Serum or Plasma 5.9 g/dL 6.4-8.3 L [facility] ID Date Data Source [id number] 11/15/2020 05:07:41 PM [facility] Value Range Interpretation Code Description Data Lou rce(s) Supporting Document(s) Leukocytes [#/volume] in Blood by Automated count 9.0 10*3/uL 4-10 [facility] Erythrocytes [#/volume] in Blood by Automated count 3.38 10*6/uL 4.6- 6.1 L [facility] Hemoglobin [Mass/volume] in Blood 9.0 g/dL 13.5-18 L [facility] Hematocrit [Volume Fraction] of Blood by Automated count 27.3 % 4 1-53 L [facility] Erythrocyte mean corpuscular volume [Entitic volume] by Auto mated count 80.8 fL 80-96 [facility] Erythrocyte mean corpuscular hemoglobin [Entitic mass] by Automated count 26.7 pg 27-33 L [facility] Erythrocyte mean corpuscular hemoglobin concentration [Mass/volume] by Automated count 33.0 g/dL 32.0-36.0 [facility] width [Ratio] by Automated count 18.6 % 11.5-14.5 [facility] Platelets [#/volume] in Blood by Automated count 124 10*3/uL 150-400 [facility] Confirmed Differential cell count method - Blood [facility] Neutrophils/100 leukocytes in Blood by Automated count 76 % [facility] Lymphocytes/100 leukocytes in Blood by Automated count 6 % [facility] Monocytes/100 leukocytes in Blood by Automated count 14 % [facility] Eosinophils/100 leukocytes in Blood by Automated count 3 % [facility] Basophils/100 leukocytes in Blood by Automated count 1 % [facility] Neutrophils [#/volume] in Blood by Automated count 6.78 10*3/uL 1.8-7 .0 [facility] Lymphocytes [#/volume] in Blood by Automated count 0.56 10*3/uL 1.2-4 .0 L [facility] Monocytes [#/volume] in Blood by Automated count 1.26 10*3/uL 0-0.8 [facility] Eosinophils [#/volume] in Blood by Automated count 0.29 10*3/uL 0-0.5 [facility] Basophils [#/volume] in Blood by Automated count 0.06 10*3/uL 0-0.2 [facility] Nucleated erythrocytes/100 leukocytes [Ratio] in Blood by Automated count 0 /100{WBCs} 0-0 [facility] ID Date Data Source [id number] 11/15/2020 04:56:38 PM [facility] Name Value Range Interpretation Code Description Data Lou rce(s) Supporting Document(s) Hepatitis C virus Ab [Presence] in Serum or Plasma by Immuno assay Non Reactive [facility] No serological evidence of active infect ion. If recent exposure is suspected, test for HCV RNA. ID Date Data Source [id number] 11/15/2020 07:13:54 AM [facility] Name Value Range Interpretation Code Description Data Lou rce(s) Supporting Document(s) Bicarbonate [Moles/volume] in Serum 19 mmol/L 22-29 L [facility] Chloride [Moles/volume] in Serum or Plasma 102 mmol/L 98-107 [facility] Creatinine [Mass/volume] in Serum or Plasma 0.69 mg/dL 0.70-1.20 [facility] Glucose [Mass/volume] in Serum or Plasma 112 mg/dL 70-140 [facility] Potassium [Moles/volume] in Serum or Plasma 3.9 mmol/L 3.4-5.1 [facility] Sodium [Moles/volume] in Serum or Plasma 130 mmol/L 136-145 [facility] Urea nitrogen [Mass/volume] in Serum or Plasma 13 mg/dL 6-20 [facility] Anion gap 3 in Serum or Plasma 9 mmol/L 8-15 [facility] Osmolality of Serum or Plasma by calculation 270 mosm/kg 275-300 [facility] Creatinine/Urea nitrogen [Mass Ratio] in Serum or Plasma 19 [facility] Calcium [Mass/volume] in Serum or Plasma 8.2 mg/dL 8.6-10.0 [facility] Glomerular filtration rate/1.73 sq M pre dicted among non-blacks [Volume Rate/Area] in Serum or Plasma by Creatinine-based formula (MDRD) >6 0 [facility] Glomerular filtration rate/1.73 sq M pre dicted among blacks [Volume Rate/Area] in Serum or Plasma by Creatinine-based formula (MDRD) >60 [facility] ID Date Data Source [id number] 11/15/2020 07:47:[address] [facility] Name Value Range Interpretation Code Description Data Lou e(s) Supporting Document(s) Leukocytes [#/volume] in Blood by Automated count 7.5 10*3/uL 4-10 [facility] Erythrocytes [#/volume] in Blood by Automated count 3.25 10*6/uL 4.6- 6.1 [facility] Hemoglobin [Mass/volume] in Blood 8.5 g/dL 13.5-18 L [facility] Hematocrit [Volume Fraction] of Blood by Automated count 26.2 % 4 1-53 [facility] Erythrocyte mean corpuscular volume [Entitic volume] by Auto mated count 80.6 fL 80-96 [facility] Erythrocyte mean corpuscular hemoglobin [Entitic mass] by Automated count 26.2 pg 27-33 L [facility] Erythrocyte mean corpuscular hemoglobin concentration [Mass/volume] by Automated count 32.5 g/dL 32.0-36.0 [facility] Erythrocyte distribution width [Ratio] by Automated count 18.5 % 11.5-14.5 H [facility] Platelets [#/volume] in Blood by Automated count 123 10*3/uL 150-400 L [facility] Confirmed Differential cell count method - Blood [facility] Neutrophils/100 leukocytes in Blood by Automated count 72 % [facility] Lymphocytes/100 leukocytes in Blood by Automated count 10 % [facility] Monocytes/100 leukocytes in Blood by Automated count 13 % [facility] Eosinophils/100 leukocytes in Blood by Automated count 4 % [facility] Basophils/100 leukocytes in Blood by Automated count 1 % [facility] Neutrophils [#/volume] in Blood by Automated count 5.47 10*3/uL 1.8-7 .0 [facility] Lymphocytes [#/volume] in Blood by Automated count 0.72 10*3/uL 1.2-4 .0 L [facility] Monocytes [#/volume] in Blood by Automated count 0.97 10*3/uL 0-0.8 H [facility] Eosinophils [#/volume] in Blood by Automated count 0.32 10*3/uL 0-0.5 [facility] Basophils [#/volume] in Blood by Automated count 0.05 10*3/uL 0-0.2 [facility] Nucleated erythrocytes/100 leukocytes [Ratio] in Blood by Automated count 0 /100{WBCs} 0-0 [facility] ID Date Data Source [id number] 11/15/2020 12:33:23 PM [facility] Name Value Range Interpretation Code Description Data Lou rce(s) Supporting Document(s) Phosphate [Mass/volume] in Serum or Plasma 2.4 mg/dL 2.5-4.5 [facility] ID Date Data Source [id number] 11/14/2020 11:16:15 PM [facility] Name Value Range Interpretation Code Description Data Lou rce(s) Supporting Document(s) [facility] HYYNPv0gJoUUWqSr31/BHHfdMQCum1VgJMrzOSn8NPqlWQIlO2FjNYU5wX9lKXX8SLeHBnHjLpMkZmU9 lbm CoYogYCjIkGLWpNwiMMvYdNJueXzlpaKMeIT3EkSG9FUShR86uHCYoQSFvS3XxWOJ6XgC+Ba1CWJMmwO CeUN0ZJayO0J5dVxmATd6+2p6UEP79auuEmhd6rZQEIfEuRJB0Xm6vq2WU5F2gTR+F2b87C7/DpirDL6 6ctiWDhCYzbv8nxx6xb7sTUOG+91ldtDOZdlX77+zP YJUX9M19+9/UvJvnzrrN/2SdyAOuEztR+UD+p6e/rkCEmwh0uIZ1yCkrLm+7IGIac34ZFlVJ02Ydt+ri d6U9L2/AvbHLzL0YTSP6Rem6CcU8dMJorXZDdwrKc9gWj+CLr5HfjH0Q9kVjpUXFtIYHxzZf8qTHcgzd jbjBpBpL1qxPJCJifKGlkGFKWO5Asyke3VrFtfH3o9 E+lN3b9RM+bg92srBjs4DfIOwzdpXTwv6tZcwkqW1I8XJJPp3EMalMnWXfjS4zgKTGo7A+waLa0Vb+zN I09iNbsj8bnPr8BlsE3razKQspo8PW+1ovwtq5oN0sM+wH4J14H6hNjbl26xaUhDCeldwK25L45FnJhw DuSohUa6CABDzGbEIld+yiItICRdyp923q9YGwsjxf yzJbnPfZTdpbsjhUGKulOs/+eBsF7xA+HBa6zOKcXerHN/CPYI8vg+/ssd2rFDLFDRk1SAzQJ2nQhlaJ Y4xoJuCJrinKBdbskDURxUx9iTHtSSctnWEr9NZZ7cllzi4wb9GpC6ci2TQdEf0DdVjdaPN/HWrLLkrQ oSxvn7caGTn7WnqK7mLyAALkU21/JcT0v5GFEQdYa8 XBAaycULWVsl5nP4Z21Pt6RkJdeBf0XweDbthcuaPQhEy3zcGX3Xq5D9RCRQQhR4RMlj6xfkMuCw+Mars [file] TdHgo0JyecTGS4CHMsVpIqWKOoTzEaNI1lDVOITi8+AElzpAYwgLfjUSMXKwW1XQO1QZhtEPZHMx0H ID Date Data Source [id number] 11/15/2020 12:29:07 AM [facility] Name Value Range Interpretation Code Description Data Lou rce(s) Supporting Document(s) Leukocytes [#/volume] in Blood by Automated count 7.5 10*3/uL 4-10 [facility] Erythrocytes [#/volume] in Blood by Automated count 3.11 10*6/uL 4.6- 6.1 L [facility] Hemoglobin [Mass/volume] in Blood 8.0 g/dL 13.5-18 L [facility] Hematocrit [Volume Fraction] of Blood by Automated count 24.9 % 4 1-53 L [facility] Erythrocyte mean corpuscular volume [Entitic volume] by Auto mated count 80.0 fL 80-96 [facility] Erythrocyte mean corpuscular hemoglobin [Entitic mass] by Automated count 25.8 pg 27-33 L [facility] Erythrocyte mean corpuscular hemoglobin concentration [Mass/volume] by Automated count 32.3 g/dL 32.0-36.0 [facility] width [Ratio] by Automated count 18.7 % 11.5-14.5 H [facility] Platelets [#/volume] in Blood by Automated count 120 10*3/uL 150-400 L [facility] Confirmed Differential cell count method - Blood [facility] Neutrophils/100 leukocytes in Blood by Automated count 71 % [facility] Lymphocytes/100 leukocytes in Blood by Automated count 11 % [facility] Monocytes/100 leukocytes in Blood by Automated count 13 % [facility] Eosinophils/100 leukocytes in Blood by Automated count 4 % [facility] Basophils/100 leukocytes in Blood by Automated count 1 % [facility] Neutrophils [#/volume] in Blood by Automated count 5.34 10*3/uL 1.8-7 .0 [facility] Lymphocytes [#/volume] in Blood by Automated count 0.83 10*3/uL 1.2-4 .0 [facility] Monocytes [#/volume] in Blood by Automated count 0.96 10*3/uL 0-0.8 H [facility] Eosinophils [#/volume] in Blood by Automated count 0.32 10*3/uL 0-0.5 [facility] Basophils [#/volume] in Blood by Automated count 0.06 10*3/uL 0-0.2 [facility] Nucleated erythrocytes/100 leukocytes [Ratio] in Blood by Automated count 0 /100{WBCs} 0-0 [facility] ID Date Data Source [id number] 11/14/2020 03:50:[address] [facility] Name Value Range Interpretation Code Description Data Lou rce(s) Supporting Document(s) History and Physical [facility] RVQVIo8fLeIPFrAn52/TDNdeRNTxi0JrVPqhRQc8PGeqAZKeY6QeNXK1zQ3iWRN0SXuGPsKrRhHdYaV6 lbm [file] AgICAgICAgICAgICAgICAgICAgICAgICAgICAgICAgICAgICAgICAgICAgICAgICAgICAgICAgICAgIC AgICAgICAgICAgICAgICAgICAgICAgICAgICAgICAgICAgICAgICANCiAgICAgICAgICAgICAgICAgIC AgICAgICAgICAgICAgICAgICAgICAgICAgICAgICAg ICAgICAgICAgICAgICAgICAgICAgICAgICAgICAgICAgICAgICAgICAgICAgICAgICANCiAgICAgICAg ICAgICAgICAgICAgICAgICAgICAgICAgICAgICAgICAgICAgICAgICAgICAgICAgICAgICAgICAgICAg ICAgICAgICAgICAgICAgICAgICAgICAgICAgICAgIC ANCiAgICAgICAgICAgICAgICAgICAgICAgICAgICAgICAgICAgICAgICAgICAgICAgICAgICAgICAgIC AgICAgICAgICAgICAgICAgICAgICAgICAgICAgICAgICAgICAgICAgICANCiAgICAgICAgICAgICAgIC AgICAgICAgICAgICAgICAgICAgICAgICAgICAgICAg ICAgICAgICAgICAgICAgICAgICAgICAgICAgICAgICAgICAgICAgICAgICAgICAgICAgICANCiAgICAg ICAgICAgICAgICAgICAgICAgICAgICAgICAgICAgICAgICAgICAgICAgICAgICAgICAgICAgICAgICAg ICAgICAgICAgICAgICAgICAgICAgICAgICAgICAgIC AgICANCiAgICAgICAgICAgICAgICAgICAgICAgICAgICAgICAgICAgICAgICAgICAgICAgICAgICAgIC AgICAgICAgICAgICAgICAgICAgICAgICAgICAgICAgICAgICAgICAgICAgICANCiAgICAgICAgICAgIC AgICAgICAgICAgICAgICAgICAgICAgICAgICAgICAg ICAgICAgICAgICAgICAgICAgICAgICAgICAgICAgICAgICAgICAgICAgICAgICAgICAgICAgICANCiAg ICAgICAgICAgICAgICAgICAgICAgICAgICAgICAgICAgICAgICAgICAgICAgICAgICAgICAgICAgICAg ICAgICAgICAgICAgICAgICAgICAgICAgICAgICAgIC AgICAgICANCiAgICAgICAgICAgICAgICAgICAgICAgICAgICAgICAgICAgICAgICAgICAgICAgICAgIC AgICAgICAgICAgICAgICAgICAgICAgICAgICAgICAgICAgICAgICAgICAgICAgICANCjw/iONqA1szvG XtjpA8V6zoUe3KVa4YJD7er8PwIAJuCMirprJhMezC LkTpZQKfFucULfh9OSlyUI5OvOHgG1CgV6RrZJghPG1WWJZzPZXphQMyMZSxSVGiBtK9JMFvTQznGD0S uRGwCEjsIEFbJKFzFpElROYpXSKlJLNpOWFbVPNDYBWkCTOiKsAtCMcoWX3Kl7CigIB0HPt+Pl7IHC3y i7OcWJzqFsZiUQ6uyk2QXFlIQuXuF4WxboH6GXO1LZ XfZp0EGDWhPUPnvTOvFbBtKACPQzSzC4XwmA95KSQHPl5+EGutjfWnVvhWLeR3VBVfk2ClLVw3QC1UWU IxPHc2eNDbACZRHZP6FTw3scFuTKQtzRShJJSELERenFU6XbL0AgYrBwEoMPQ5WXKqDE7fIEwnPW2SBI K9YEedOMLkVNRvP5cLKmLqJCOxYAXfrRlpPY7TMdLi K7EzcuYfyZViFzSwMTJQLo0+TWnpbfQhXtuDSdT5SYJrv1KqEFl7ND7SORZyUQdoMA5CQRNffQ2lLYgn BU5THuUfSGAuSXVJThEoK03nqEXtEXg2E1SuBmLqKRLaBmpoARZyKNhlCzErKQSxJqIbAYgpDB1+ID4+ RZjaVP7KIFauwzBcBNHlNf9OXCQuKHUcNH4yMHGsQE NtK6O3oEamGXFVCzMbR3bcevinMF5rJBWxJ201vKlsbiOdTYL8OJAdYb4JSZFkIBY5QKHlxJFpEoVhFV DBFGnjGF5YsIEmCMT7dF7wYMlhAWOjJZGpI3xRTtZzqPrhKU46lZhgfdHiwSQbUYl+Rx5WEH8st7LpQN z8mfPuZEaaGHQ1DBqiVJTaTCGsJESpKFV5XLV2GMCV YjMrPWHhFQWtTTpyTPMeXJYsgt8WVHNsGAVyCVQ4USRqVYCfRNMsGFbbANHcLEI2ZcSdMAWrZAFzTY6V GxPlUXBrMRJwGDhvPTUyKZHyqh2HBRBzLKKeHZD7EIJnJRWaTXEkJKnyQPGiQCD1VYzoJISnQIVvQH0M DuPyUMBgRNb1IMXpCQUlYEXvbw5ODKZnMZDxEbs7JK MkEMPcUBHdGBgaKIEaTWYqOTD6OUGcEWTeDQ3ZCmMjZUIlIEYwFdWgKVGfCQLuva7IUXUjEUGlLnppNi VzVICkLSZwMCuhDHLoRRBeSRW2RUYzVXTvIQ2UMcIxBZKuQJGqWVRqOLNrOIYymt4PJFMeEEAgFZH8Qr BcJSOhDVJbPMzuVDWxEUT1GJF7MJCjGOFwMH9HYaMu ATNoYSU6YWCgKQShQWSvgw5SKOMxUXQyStafHfByMNQvYHLyMXjbEVEnGXZ4ITa9JVQvISUrQP8SQfPk AXQfRXheDMklFHEmHICoxf1ZNWOqXPFhKIE1VwRvPRHuIBCcYJtrTMSpYKT2BlV8DTYcYXObXK9INbRl IZJfJGk4NbkyZKObBPCrap1CGUHtDPHyQYGnRJOjCS MkEIDtSWxxVXFnVPRwFOo1ITAqIIWjHS5YEnViUGSiEvY2VNEfLNKnHMTwmv9MSADpSBBjDGj2AFFfKF QpPKEpJEwgSAPcQFAyZmGoEZVrLEAnIF6UUyStJHCbCmZ0JnejTVJoGFGdms2ZMAKwTHIjCbn6ZyHaWE MfSWLoJIydGESvXJHrXJJ6LNCiLSYgJV1SKzRmVQFx QjMbMmGjYTHtAJOltt7KMYDqRDBpCAEwRpOwQLTzOGFgNEntNZGdLCL3Axr1VBCvGPDqYH7OVlOyBGDb CoD0XtDdLFQuYEYtti3ZYUKjMJMlPMExBXOqVKWyADDtCNndXOPkAQO2QJo3XVIxYTDfHP0VNwJhPZEu TtE9JSVeJWYdJBHcry2VNCHuUKErJpG2XDUoMOHgZH UjSAd4qtDktLEwBEd7IT9IA3QnhyXeGqgMIn7Kz003XPS8RJDiLt8MK3xiVq5yTIVuJNEZCo8QXLi8Pb KzNJW0ISR4KzPuJkV3HtO7NhdiH6DsGxBnAoS1GZE+AEbjSeU5DcNsYGceOIZhDBG5WXmnYmM0WrSfKb JkRZIwRR3wPASBRw1+XWdpwGXzaNdlFNAJQhW6OEM6NWvpZMYCCc0Q ID Date Data Source [id number] 11/14/2020 05:33:49 PM EDT [facility] Name Value Range Interpretation Code Description Data Lou rce(s) Supporting Document(s) Albumin [Mass/volume] in Serum or Plasma by Bromocresol green (BCG) dye binding method 3.2 g/dL 3.5[facility] Bil[facility].total [Mass/volume] in Serum or Plasma 2.1 mg/dL <1.2 H [facility] Calcium [Mass/volume] in Serum or Plasma 7.9 mg/dL 8.6-10.0 [facility] Chloride [Moles/volume] in Serum or Plasma 100 mmol/L 98-107 [facility] Creatinine [Mass/volume] in Serum or Plasma 0.64 mg/dL 0.70-1.20 [facility] Glucose [Mass/volume] in Serum or Plasma 94 mg/dL 70-140 [facility] Alkaline phosphatase [Enzymatic activity/volume] in Serum or Plasma 123 U/L 40-129 [facility] Potassium [Moles/volume] in Serum or Plasma 3.7 mmol/L 3.4-5.1 [facility] Protein [Mass/volume] in Serum or Plasma 5.8 g/dL 6.4-8.3 [facility] Sodium [Moles/volume] in Serum or Plasma 130 mmol/L 136-145 [facility] Aspartate aminotransferase [Enzymatic activity/volume] in Serum or Plasma 325 U/L <40 [facility] Urea nitrogen [Mass/volume] in Serum or Plasma 13 mg/dL 6-20 [facility] Osmolality of Serum or Plasma by calculation 269 mosm/kg 275-300 [facility] Creatinine/Urea nitrogen [Mass Ratio] in Serum or Plasma 21 [facility] Bicarbonate [Moles/volume] in Serum 21 mmol/L 22-29 [facility] Alanine aminotransferase [Enzymatic activity/volume] in Seru m or Plasma 127 U/L <41 [facility] Anion gap 3 in Serum or Plasma 9 mmol/L 8-15 [facility] Glomerular filtration rate/1.73 sq M pre dicted among non-blacks [Volume Rate/Area] in Serum or Plasma by Creatinine-based formula (MDRD) >6 0 [facility] Glomerular filtration rate/1.73 sq M pre dicted among blacks [Volume Rate/Area] in Serum or Plasma by Creatinine-based formula (MDRD) >60 [facility] ID Date Data Source [id number] 11/14/2020 05:33:49 PM [facility] Name Value Range Interpretation Code Description Data Lou rce(s) Supporting Document(s) Magnesium [Mass/volume] in Serum or Plasma 2.5 mg/dL 1.6-2.6 [facility] ID Date Data Source [id number] 11/14/2020 05:33:49 PM [facility] Value Range Interpretation Code Description Data Lou rce(s) Supporting Document(s) Phosphate [Mass/volume] in Serum or Plasma 1.3 mg/dL 2.5-4.5 [facility] ID Date Data Source [id number] 11/14/2020 06:06:06 PM [facility] Value Range Interpretation Code Description Data Lou rce(s) Supporting Document(s) Leukocytes [#/volume] in Blood by Automated count 7.8 10*3/uL 4-10 [facility] Erythrocytes [#/volume] in Blood by Automated count 3.15 10*6/uL 4.6- 6.1 [facility] Hemoglobin [Mass/volume] in Blood 8.3 g/dL 13.5-18 [facility] Hematocrit [Volume Fraction] of Blood by Automated count 25.4 % 4 1-53 [facility] Erythrocyte mean corpuscular volume [Entitic volume] by Auto mated count 80.6 fL 80-96 [facility] Erythrocyte mean corpuscular hemoglobin [Entitic mass] by Automated count 26.4 pg 27-33 [facility] Erythrocyte mean corpuscular hemoglobin concentration [Mass/volume] by Automated count 32.8 g/dL [facility].0-[facility].0 [facility] width [Ratio] by Automated count 18.5 % 11.5-14.5 [facility] Platelets [#/volume] in Blood by Automated count 116 10*3/uL 150-400 [facility] Confirmed Differential cell count method - Blood [facility] Neutrophils/100 leukocytes in Blood by Automated count 76 % [facility] Lymphocytes/100 leukocytes in Blood by Automated count 8 % [facility] Monocytes/100 leukocytes in Blood by Automated count 13 % [facility] Eosinophils/100 leukocytes in Blood by Automated count 2 % [facility] Basophils/100 leukocytes in Blood by Automated count 1 % [facility] Neutrophils [#/volume] in Blood by Automated count 5.95 10*3/uL 1.8-7 .0 [facility] Lymphocytes [#/volume] in Blood by Automated count 0.63 10*3/uL 1.2-4 .0 [facility] Monocytes [#/volume] in Blood by Automated count 1.05 10*3/uL 0-0.8 [facility] Eosinophils [#/volume] in Blood by Automated count 0.19 10*3/uL 0-0.5 [facility] Basophils [#/volume] in Blood by Automated count 0.04 10*3/uL 0-0.2 [facility] Nucleated erythrocytes/100 leukocytes [Ratio] in Blood by Automated count 0 /100{WBCs} 0-0 [facility] ID Date Data Source [id number] [facility]/14[facility] Name Value Range Interpretation Code Description Data Lou rce(s) Supporting Document(s) Ammonia [Moles/volume] in Plasma 86 umol/L 16-60 [facility] ID Date Data Source [id number] 11/14/2020 08:19:36 AM [facility] Name Value Range Interpretation Code Description Data Lou rce(s) Supporting Document(s) Bicarbonate [Moles/volume] in Serum 21 mmol/L 22-29 [facility] Chloride [Moles/volume] in Serum or Plasma 99 mmol/L 98-107 [facility] Confirmed Creatinine [Mass/volume] in Serum or Plasma 0.65 mg/dL 0.70-1.20 [facility] Glucose [Mass/volume] in Serum or Plasma 97 mg/dL 70-140 [facility] Potassium [Moles/volume] in Serum or Plasma 3.0 mmol/L 3.4-5.1 [facility] Confirmed Sodium [Moles/volume] in Serum or Plasma 130 mmol/L 136-145 [facility] Confirmed Urea nitrogen [Mass/volume] in Serum or Plasma 15 mg/dL 6-20 [facility] Anion gap 3 in Serum or Plasma 11 mmol/L 8-15 [facility] Confirmed Osmolality of Serum or Plasma by calculation 271 mosm/kg 275-300 [facility] Confirmed Creatinine/Urea nitrogen [Mass Ratio] in Serum or Plasma 22 [facility] Calcium [Mass/volume] in Serum or Plasma 7.8 mg/dL 8.6-10.0 [facility] Glomerular filtration rate/1.73 sq M pre dicted among non-blacks [Volume Rate/Area] in Serum or Plasma by Creatinine-based formula (MDRD) >6 0 [facility] Glomerular filtration rate/1.73 sq M pre dicted among blacks [Volume Rate/Area] in Serum or Plasma by Creatinine-based formula (MDRD) >60 [facility] ID Date Data Source [id number] 11/14/2020 08:31:17 AM EDT [facility] Name Value Range Interpretation Code Description Data Lou rce(s) Supporting Document(s) Leukocytes [#/volume] in Blood by Automated count 6.9 10*3/uL 4-10 [facility] Erythrocytes [#/volume] in Blood by Automated count 2.97 10*6/uL 4.6- 6.1 [facility] Hemoglobin [Mass/volume] in Blood 7.9 g/dL 13.5-18 [facility] Hematocrit [Volume Fraction] of Blood by Automated count 23.7 % 4 1-53 [facility] Erythrocyte mean corpuscular volume [Entitic volume] by Auto mated count 79.8 fL 80-96 [facility] Erythrocyte mean corpuscular hemoglobin [Entitic mass] by Automated count 26.5 pg 27-33 [facility] Erythrocyte mean corpuscular hemoglobin concentration [Mass/volume] by Automated count 33.2 g/dL 32.0-36.0 [facility] E[facility] distribution width [Ratio] by Automated count 18.9 % 11.5-14.5 [facility] Platelets [#/volume] in Blood by Automated count 99 10*3/uL 150-400 [facility] Confirmed Differential cell count method - Blood [facility] Neutrophils/100 leukocytes in Blood by Automated count 77 % [facility] Lymphocytes/100 leukocytes in Blood by Automated count 7 % [facility] Monocytes/100 leukocytes in Blood by Automated count 12 % [facility] Eosinophils/100 leukocytes in Blood by Automated count 3 % [facility] Basophils/100 leukocytes in Blood by Automated count 1 % [facility] Neutrophils [#/volume] in Blood by Automated count 5.45 10*3/uL 1.8-7 .0 [facility] Lymphocytes [#/volume] in Blood by Automated count 0.47 10*3/uL 1.2-4 .0 [facility] Monocytes [#/volume] in Blood by Automated count 0.80 10*3/uL 0-0.8 [facility] Eosinophils [#/volume] in Blood by Automated count 0.18 10*3/uL 0-0.5 [facility] Basophils [#/volume] in Blood by Automated count 0.03 10*3/uL 0-0.2 [facility] Nucleated erythrocytes/100 leukocytes [Ratio] in Blood by Automated count 0 /100{WBCs} 0-0 [facility] ID Date Data Source [id number] 11/14/2020 11:09:27 AM [facility] Value Range Interpretation Code Description Data Lou rce(s) Supporting Document(s) Magnesium [Mass/volume] in Serum or Plasma 2.6 mg/dL 1.6-2.6 [facility] ID Date Data Source [id number] 11/14/2020 11:09:27 AM [facility] Value Range Interpretation Code Description Data Lou rce(s) Supporting Document(s) Phosphate [Mass/volume] in Serum or Plasma 1.6 mg/dL 2.5-4.5 [facility] ID Date Data Source [id number] 11/13/2020 11:52:58 PM [facility] Value Range Interpretation Code Description Data Lou rce(s) Supporting Document(s) ABO and Rh group [Type] in Blood [facility] Blood bank comment [facility] ID Date Data Source [id number] 11/13/2020 09:59:28 PM EDT [facility] Name Value Range Interpretation Code Description Data Lou rce(s) Supporting Document(s) Sodium [Moles/volume] in Blood 132 mmol/L 136-145 [facility] Potassium [Moles/volume] in Blood 3.1 mmol/L 3.4-5.1 [facility] Chloride [Moles/volume] in Blood 97 mmol/L 98-107 [facility] Carbon dioxide, total [Moles/volume] in Blood 21 mmol/L 22-29 [facility] Calcium.ionized [Moles/volume] in Blood 1.19 mmol/L 1.13-1.32 [facility] Glucose [Mass/volume] in Blood 115 mg/dL 70-140 [facility] Urea nitrogen [Mass/volume] in Blood 15 mg/dL 6-20 [facility] Creatinine [Mass/volume] in Blood 0.7 mg/dL 0.70-1.20 [facility] Hematocrit [Volume Fraction] of Blood 22 % 41-53 [facility] Hemoglobin [Mass/volume] in Blood by calculation 7.5 g/dL 13.5-18.0 [facility] ID Date Data Source [id number] 11/13/2020 09:59:[address] [facility] Name Value Range Interpretation Code Description Data Lou rce(s) Supporting Document(s) Leukocytes [#/volume] in Blood by Automated count 7.0 10*3/uL 4-10 [facility] Erythrocytes [#/volume] in Blood by Automated count 2.58 10*6/uL 4.6- 6.1 [facility] Hemoglobin [Mass/volume] in Blood 7.0 g/dL 13.5-18 [facility] Hematocrit [Volume Fraction] of Blood by Automated count 20.6 % 4 1-53 [facility] Called to and read back by Zeny cintron [employer] [address] [place] 1479 Erythrocyte mean corpuscular volume [Entitic volume] by Auto mated count 79.5 fL 80-96 [facility] Erythrocyte mean corpuscular hemoglobin [Entitic mass] by Automated count 27.1 pg 27-33 [facility] Erythrocyte mean corpuscular hemoglobin concentration [Mass/volume] by Automated count 34.0 g/dL 32.0-36.0 [facility] E[facility]th[facility] distribution width [Ratio] by Automated count 19.9 % 11.5-14.5 [facility] Platelets [#/volume] in Blood by Automated count 102 10*3/uL 150-400 [facility] Differential cell count method - Blood [facility] Neutrophils/100 leukocytes in Blood by Automated count 78 % [facility] Lymphocytes/100 leukocytes in Blood by Automated count 7 % [facility] Monocytes/100 leukocytes in Blood by Automated count 13 % [facility] Eosinophils/100 leukocytes in Blood by Automated count 1 % [facility] Basophils/100 leukocytes in Blood by Automated count 1 % [facility] Neutrophils [#/volume] in Blood by Automated count 5.50 10*3/uL 1.8-7 .0 [facility] Lymphocytes [#/volume] in Blood by Automated count 0.47 10*3/uL 1.2-4 .0 [facility] Monocytes [#/volume] in Blood by Automated count 0.89 10*3/uL 0-0.8 [facility] Eosinophils [#/volume] in Blood by Automated count 0.09 10*3/uL 0-0.5 [facility] Basophils [#/volume] in Blood by Automated count 0.04 10*3/uL 0-0.2 [facility] Nucleated erythrocytes/100 leukocytes [Ratio] in Blood by Automated count 0 /100{WBCs} 0-0 [facility] ID Date Data Source [id number] 11/13/2020 10:08:20 PM [facility] Value Range Interpretation Code Description Data Lou rce(s) Supporting Document(s) Prothrombin time (PT) 16.6 s 12.5-14.9 [facility] INR in Platelet poor plasma by Coagulation assay 1.32 [facility] Routine intensity oral anticoagulation I NR is typically 2.0-3.0. Target INR must be clinically individualized. ID Date Data Source [id number] 11/13/2020 10:17:51 PM [facility] Value Range Interpretation Code Description Data Lou rce(s) Supporting Document(s) Lipase [Enzymatic activity/volume] in Serum or Plasma 44 U/L 13-6 0 [facility] ID Date Data Source [id number] 11/13/2020 10:17:51 PM [facility] Value Range Interpretation Code Description Data Lou rce(s) Supporting Document(s) Albumin [Mass/volume] in Serum or Plasma by Bromocresol green (BCG) dye binding method 3.0 g/dL 3.5-5.2 [facility] Bilirubin.total [Mass/volume] in Serum or Plasma 1.7 mg/dL <1.2 [facility] Calcium [Mass/volume] in Serum or Plasma 7.8 mg/dL 8.6-10.0 [facility] Chloride [Moles/volume] in Serum or Plasma 97 mmol/L 98-107 [facility] Creatinine [Mass/volume] in Serum or Plasma 0.66 mg/dL 0.70-1.20 [facility] Glucose [Mass/volume] in Serum or Plasma 115 mg/dL 70-140 [facility] Alkaline phosphatase [Enzymatic activity/volume] in Serum or Plasma 127 U/L 40-129 [facility] Potassium [Moles/volume] in Serum or Plasma 3.1 mmol/L 3.4-5.1 [facility] Protein [Mass/volume] in Serum or Plasma 5.5 g/dL 6.4-8.3 [facility] Sodium [Moles/volume] in Serum or Plasma 128 mmol/L 136-145 [facility] Aspartate aminotransferase [Enzymatic activity/volume] in Serum or Plasma 189 U/L <40 [facility] Urea nitrogen [Mass/volume] in Serum or Plasma 16 mg/dL 6-20 [facility] Osmolality of Serum or Plasma by calculation 269 mosm/kg 275-300 [facility] Creatinine/Urea nitrogen [Mass Ratio] in Serum or Plasma 24 [facility] Bicarbonate [Moles/volume] in Serum 22 mmol/L 22-29 [facility] Alanine aminotransferase [Enzymatic activity/volume] in Seru m or Plasma 74 U/L <41 [facility] Anion gap 3 in Serum or Plasma 9 mmol/L 8-15 [facility] Glomerular filtration rate/1.73 sq M pre dicted among non-blacks [Volume Rate/Area] in Serum or Plasma by Creatinine-based formula (MDRD) >6 0 [facility] Glomerular filtration rate/1.73 sq M pre dicted among blacks [Volume Rate/Area] in Serum or Plasma by Creatinine-based formula (MDRD) >60 [facility] ID Date Data Source [id number] 11/16/2020 07:33:[address] [facility] Name Value Range Interpretation Code Description Data Lou rce(s) Supporting Document(s) ABO and Rh group [Type] in Blood [facility] Blood group antibody screen [Presence] in Serum or Plasma [facility] Performed at [facility], Raquel brody Geeta, [id number] ID Date Data Source [id number] 11/13/2020 03:31:00 PM EDT [facility] Name Value Range Interpretation Code Description Data Lou rce(s) Supporting Document(s) SARS coronavirus 2 RNA [Presence] in Res piratory specimen by TOYA with probe detection NEGATIVE [facility] This lab was ordered by [facility] a nd reported by [facility]. Procedure Social History Code Duration Value Status Description Data Source(s ) Alcohol intake 11/16/2020 12:00:00 AM EDT Current drinker of al cohol (finding) completed Current drinker of alcohol (finding) [facility] Tobacco use and exposure 11/14/2020 12:00:00 AM EDT Smokeless to bacco non-user completed Smokeless tobacco non-user [facility] Cigarette pack-years 11/14/2020 12:00:00 AM EDT UNK completed [facility] Cigarettes smoked current (pack per day) - Reported 11/15/19 12:00:00 AM EDT UNK completed [facility].5 [facility] Smoking 11/14/2020 12:00:00 AM EDT Smokes tobacco daily comple ashley Smokes tobacco daily [facility] Vital Signs ID Date Data Source UNK Name Value Range Interpretation Code Description Data Source(s) Diastolic blood pressure 78 mm[Hg] 78 mm[Hg] SUKI ([facility]) Body weight 2480 [oz_av] 2480 [oz_av] SUKI ([facility]) Body height 65 [in_i] 65 [in_i] SUKI ([facility]) Body mass index (BMI) [Ratio] 25.8 kg/m2 25.8 k g/m2 BRONX ([facility]) Systolic blood pressure 121 mm[Hg] 121 mm[Hg] Venkata ROBBINS ([facility]) ID Date Data Source [id number] 12/14/2020 04:10:[address] [facility] Name Value Range Interpretation Code Description Data Source(s) WEIGHT RECORDED 151.3 lb 151.3 lb [facility] Body height Measured 66 in 66 in [facility] TRANSFER FROM [facility] ID Date Data Source [id number] 12/01/2020 11:10:43 AM [facility] Name Value Range Interpretation Code Description Data Source(s) TRANSFER FROM [facility] Patient Treatment Plan of Care Planned Activity Planned Date Details Description Data Source (s) Lisinopril 5 MG Oral Tablet 12/12/2020 12:00:00 AM [facility] Thiamine 100 MG Oral Tablet 12/12/2020 12:00:00 AM [facility] Acetaminophen 325 MG Oral Tablet 12/12/2020 12:00:00 AM [facility] Acetaminophen 325 MG Oral Tablet 12/10/2020 04:46:26 PM [facility] Folic Acid 1 MG Oral Tablet 2020 12:00:00 AM [facility] Vitamin B 12 0.25 MG Oral Tablet 2020 12:00:00 AM [facility] pantoprazole 40 MG Delayed Release Oral Tablet 11/17/2020 12:00:00 AM [facility] Lisinopril 30 MG Oral Tablet [facility] duloxetine 60 MG Delayed Release Oral Capsule SUKI ([facility]) Clindamycin 300 MG Oral Capsule SUKI ([facility])
--- OUTSIDE RECORDS SUMMARY | 2021-04-25 13:56 | CCD ---
Author Author [facility] Organization [facility] Address Unknown Phone Unavailable Care Team Providers Care Investigations Consultant Name Role Phone MANUELA RANDLE DORCAS RPA-C Unavailable Unavailable RANDEL, MANUELA DORCAS RPA-C Unavailable Unavailable RANDLE, MANUELA [...] Unavailable Renny FUNEZ MD Unavailable Unavailable Renny FUNZE MD Unavailable Unavailable ADJAPONG, RYAN Unavailable Unavailable [...] Unavailable Alexe MD, Jaxon Unavailable JAXON PETERSEN [id number] Unavailable Unavailable GHASEMI, LAMONT MD Unavailable Unavailable [...] is protected by Article 27-F of the [facility] Public Health law. If you continue you may have access to information: Regarding HIV / AIDS; Provided by facilities licensed or operated by the [facility] Office of Mental Health; or Provided by the [facility] Office for People With Developmental Disabilities. If such information is present, then the following [facility] mandated warning applies: This information has [...] law may result in a fine or alf sentence or both. A general authorization for the release of medical or other information is NOT sufficient authorization for further disc losure. Allergies and Adverse Reactions Type Description Substance Reaction Status Data Source(s ) Propensity to adverse reactions PENICILLINS Penicillin [facility] Propensity to adverse reactions NAPROXEN NAPROXEN [facility] Propensity to adverse reactions IBUPROFEN Ibuprofen [facility] Propensity to adverse reactions DIPHENHYDRAMINE DIPHENHYDRAMINE [facility] Drug allergy AMOXICILLIN-POT CLAVULANATE AMOXICILLIN-POT CLAVULANATE [facility] Allergy to substance Allergy to substance Naproxen SUKI ([facility]) Allergy to substance Allergy to substance Ibuprofen SUKI ([facility]) Allergy to substance Allergy to substance Diphenhydramine Hcl CHELSEA ([facility]) Family History Family Member Name Family Member Gender Family Member Status Date o f Status Description Data Source(s) Unknown Unknown Problem MEDENT ([facility], [facility]) Encounters Encounter Providers Location Date Indications Data Source(s ) Outpatient Admitter: RYAN MORRISONReferrer: RYAN MORRISON 04/07/2021 12:00:00 AM EST 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 03/23/2021 12:00:00 AM [facility] Inpatient Attender: Antonio Lee antonieta: LAMONT GRAY MDAdmitter: LAMONT GRAY MDReferrer: LAMONT GRAY MD A-12/08/2020 12:00: 00 AM EDT - 12/12/2020 01:58:00 PM [facility] Patient discharged. Dorcas Randle, [facility]: [address] [place] [address], [facility] [address], [place] [address], Ph. Attender: DORCAS ISAACS [facility] Medical 11/25/2020 12:00:00 AM EDT SUKI ([facility]) Outpatient Attender: SOOLINDSAY RAMACHANDRAN . [id number] 11/17/2020 03:42:22 PM EDT [facility] Inpatient Attender: RON MILLER MDAttender: Jaxon Petersen MDAttender: JAXON PETERSEN [id number]: Bethanie Walls MDAttender: DONAL HUBBARD MDAttender: ALEX ZENDEJAS MDAdmitter: Bethanie Walls MDReferrer: DONAL HUBBARD MD [id number] 11/13/2020 12:00:00 AM EDT - 11/17/2020 05:29:00 PM EDT [facility] Patient discharged. Immunizations Vaccine Date Status Description Data Source(s) SARS-COV-2 (COVID-19) vaccine, UNSPECIFIED 10/30/2020 12:00:00 A M EDT completed 10/30/2020 SUKI ([facility] er) COVID-19 VACCINE Todd 10/30/2020 12:00:00 AM EDT completed NCSIIS Vaccine Series Complete: YESThis Data wa s Submitted to [facility] Via [employer]. Medications Medication Brand Name Start Date Product Form Dose Route Admi nistrative Instructions Pharmacy Instructions Status Indications Reaction Description Data Source(s) Acetaminophen 325 MG Oral Tablet Acetaminophen 325 MG Oral T ablet 12/12/2020 12:00:00 AM EDT 650 mg Oral active Take 2 tablets by mouth every 8 (eight) hours as needed for up to 10 days [facility] Thiamine 100 MG Oral Tablet Thiamine HCl 100 MG Oral T ablet (B-1) Thiamine HCl 100 MG Oral Tablet (B-1) 12/12/2020 12:00:00 AM EDT 100 mg Oral active Take [address] [facility] 5 MG Oral Tablet Lisinopril 5 MG Oral Table t (PRINIVIL,ZESTRIL) Lisinopril 5 MG Oral Tablet (PRINIVIL,ZESTRIL) 12/12/2020 12:00:00 AM EDT 5 mg Oral active Take 1 tablet by mouth d [facility] pantoprazole 40 MG Delayed Release Oral Tablet pantoprazole (PROTONIX) EC tablet 40 mg pantoprazole (PROTONIX) EC tablet 40 mg 12/11/2020 07:30:00 AM E DT 40 mg Oral active 40 mg, Ora l, Before Breakfast, First dose (after last modification) on Sun12/11/20 at 0730, For 5 doses
Do not crush or chew
[facility] Medication administered onsite Acetaminophen 325 [...] mg from all sources in 24 hours.
[facility] Medication administered onsite Oxycodone Hydrochloride [...] only) require Pain Service consultation and approval.
[facility] Medication administered onsite fentaNYL (SUBLIMAZE) (PF) injection 5247-7568-50 12/10/2020 12:18:14 PM EDT completed Code/Trauma Medicati on, Starting on Sun12/10/20 at 1218 [facility] Medication administered onsite 2 ML Midazolam 1 MG/ML Injection midazolam (PF) (VERSE D) injection midazolam (PF) (VERSED) injection 12/10/2020 12:10:25 PM EDT aborted Code/Trauma Medication, Starting on Sun12/10/20 at 1210 [facility] Medication administered onsite fentaNYL (SUBLIMAZE) (PF) injection [id number] 12/10/2020 12:10:02 PM EDT aborted Code/Trauma Medicati on, Starting on Sun12/10/20 at 1210 [facility] Medication administered onsite 2 ML Midazolam 1 MG/ML Injection midazolam (PF) (VERSE D) injection midazolam (PF) (VERSED) injection 12/10/2020 12:09:08 PM EDT aborted Code/Trauma Medication, Starting on Sun12/10/20 at 1209 [facility] Medication administered onsite fentaNYL (SUBLIMAZE) (PF) injection [id number] 12/10/2020 12:08:42 PM EDT aborted Code/Trauma Medicati on, Starting on Sun12/10/20 at 1208 [facility] Medication administered onsite phytonadione (VITAMIN K1) 1 mg/mL oral solution 10 mg 12/09/2020 07:35:00 PM EDT 10 mg Oral completed 10 mg, Oral, Daily Standard, First dose on Sun12/09/20 at 1945, For 3 days [facility] Medication administered onsite NaCl infusion 0.9 % [id number] 12/09/2020 07:00:00 PM EDT Intravenous aborted at 100 mL/hr, Intrav enous, Continuous, Starting on Sun12/09/20 at 1900, For 24 hours [facility] Medication administered onsite Bisacodyl 5 MG Delayed Release Oral Tablet bisacodyl ( DULCOLAX) EC tablet 20 mg bisacodyl (DULCOLAX) EC tablet 20 mg 12/09/2020 05:45:00 PM EDT 20 mg Oral completed 20 mg, Oral, Onc e, On Sun12/09/20 at 1745, For 1 dose
Do not crush or chew
[facility] Medication administered onsite pantoprazole 40 MG Delayed Release Oral Tablet pantoprazole (PROTONIX) EC tablet 40 mg pantoprazole (PROTONIX) EC tablet 40 mg 12/09/2020 05:30:00 PM E DT 40 mg Oral aborted 40 mg, Ora l, Two times daily before breakfast and dinner, First dose on Sun12/09/20 at 1730, For 30 days
Do not crush or chew
[facility] Medication administered onsite 2 ML Midazolam 1 MG/ML Injection midazolam (PF) (VERSE D) injection midazolam (PF) (VERSED) injection 12/09/2020 05:04:35 PM EDT completed Code/Trauma Medication, Starting on Carol 12/09/[address] [place] [address] Medication administered onsite fentaNYL (SUBLIMAZE) (PF) injection [id number] 12/09/2020 05:04:11 PM EDT completed Code/Trauma Medicati on, Starting on Carol 12/09/20 at [facility] Medication administered onsite 2 ML Midazolam 1 MG/ML Injection midazolam (PF) (VERSE D) injection midazolam (PF) (VERSED) injection 12/09/2020 05:02:04 PM EDT completed Code/Trauma Medication, Starting on Carol 12/09/20 at [facility] Medication administered onsite fentaNYL (SUBLIMAZE) (PF) injection [id number] 12/09/2020 05:01:47 PM EDT completed Code/Trauma Medicati on, Starting on Carol 12/09/[address] [place] [address] Medication administered onsite NaCl infusion 0.9 % [id number] 12/09/2020 03:00:00 PM EDT Intravenous aborted at 100 mL/hr, Intrav enous, Continuous, Starting on Carol 12/09/20 at 1500, For 24 hours [facility] Medication administered onsite Oxycodone Hydrochloride [...] only) require Pain Service consultation and approval.
[facility] Medication administered onsite Escitalopram 10 MG Oral Tablet escitalopram (LEXAPRO) tablet 20 mg escitalopram (LEXAPRO) tablet 20 mg 12/09/2020 09:00:00 AM EDT 20 mg Oral active 20 mg, Oral, Daily Standard, First dose on Carol 12/09/20 at 0900, For 30 days [facility] Medication administered onsite multivitamin tablet 1 tablet [id number] 12/09/2020 09:00:00 AM EDT 1 {tbl} Oral active 1 tablet, Oral , Daily Standard, First dose on Sun12/09/20 at 0900, For 30 days [facility] Medication administered onsite Ceftriaxone 1000 MG Injection cefTRIAXone (ROCEPHIN) i nfusion 1 g (premix) cefTRIAXone (ROCEPHIN) infusion 1 g (premix) 12/09/2020 09:00:00 AM EDT 1 g Intravenous aborted 1 g, Intraven ous, at 100 mL/hr, Daily Standard, First dose on Sun12/09/20 at 0900, For 4 doses
Discouraged Uses: Empiric treatment of post-surgical meningitis (ceftazidime preferred)
[facility] Medication administered onsite Oxycodone Hydrochloride [...] only) require Pain Service consultation and approval.
[facility] Medication administered onsite NaCl infusion 0.9 % [id number] 12/09/2020 07:45:00 AM EDT Intravenous aborted at 200 mL/hr, Intrav enous, Continuous, Starting on Sun12/09/20 at 0745, For 12 hours [facility] Medication administered onsite pantoprazole 4 MG/ML Injectable Solution pantoprazole (PROTONIX) injection 80 mg pantoprazole (PROTONIX) injection 80 mg 12/08/2020 11:45:00 PM EDT 80 mg Intravenous completed 80 mg, Intrav enous, Once, On Sun12/08/20 at 2345, For 1 dose [facility] Medication administered onsite pantoprazole (PROTONIX) 0.4 mg/mL in sodium chloride 0.9 % 2 50 mL infusion 12/08/2020 11:45:00 PM EDT 8 mg/h Intravenous aborted 8 mg/hr (20 mL/hr), Intravenous, at 20 mL/hr, Continuous, Starting on Sun12/08/20 at 2345, For 30 days
Indication: Active GI bleed [facility] Medication administered onsite 1 ML Octreotide 0.05 MG/ML Prefilled Syr moreno octreotide (SANDOSTATIN) injection 50 mcg octreotide (SANDOSTATIN) injection 50 mcg 12/08/2020 11:45:00 PM EDT 50 ug Intravenous completed 50 mcg, Intravenous, Once, On Sun12/08/20 at 2345, For 1 dose [facility] Medication administered onsite octreotide (SANDOSTATIN) 5 mcg/mL in sodium chloride 0.9 % 2 50 mL infusion 12/08/2020 11:45:00 PM EDT 50 ug/h Intravenous aborted 50 mcg/hr (10 mL/hr), Intravenous, at 10 mL/hr, Continuous, Starting on Sun12/08/20 at 2345, For 30 days [facility] Medication administered onsite thiamine (B-1) 500 mg in sodium chloride 0.9 % 50 mL IVPB 12/08/2020 11:45:00 PM EDT 500 mg Intravenous active 500 mg, Intravenous, Administer over 30 Minutes, Daily Standard, First dose on Sun12/08/20 at 2345, For 30 days [facility] Medication administered onsite folic acid 1 mg in sodium chloride 0.9 % 50 mL IVPB 12/08/2020 11:45:00 PM EDT 1 mg Intravenous active 1 mg , Intravenous, Administer over 30 Minutes, Daily Standard, First dose on Sun12/08/20 at 2345, For 30 days [facility] Medication administered onsite NaCl infusion 0.9 % [id number] 12/08/2020 11:30:00 PM EDT Intravenous aborted at 200 mL/hr, Intrav enous, Continuous, Starting on Sun12/08/20 at 2330, For 12 hours [facility] Medication administered onsite 50 ML [...] 16 mEq (2 g) q1h x 3
[facility] Medication administered onsite Folic Acid 1 MG Oral Tablet Folic Acid 1 MG Oral Table t (FOLVITE) Folic Acid 1 MG Oral Tablet (FOLVITE) 2020 12:00:00 AM EDT 1 mg Oral active Take 1 tablet by mouth daily [facility] Vitamin B 12 0.25 MG Oral Tablet Cyanocobalamin 250 MC G Oral Tablet Cyanocobalamin 250 MCG Oral Tablet 2020 12:00:00 AM EDT 250 ug Oral active Take 1 tablet by mouth daily [facility] pantoprazole 40 MG Delayed Release Oral Tablet Pantoprazole Sodium 40 MG Oral Tablet Delayed Release (Protonix) Pantoprazole Sodium 40 MG Oral Tablet De layed Release (Protonix) 11/17/2020 12:00:00 AM EDT 40 mg Oral active Take 1 tablet by mouth daily [facility] Clindamycin 300 MG Oral Capsule clindamy bharti HCl 300 mg capsule TAKE ONE CAPSULE BY MOUTH EVERY SIX HOURS UNTIL GONE clindamycin HCl 300 mg capsule TAKE ONE CAPSULE BY MOUTH EVERY SIX HOURS UNTIL GONE completed clindamycin 300 MG Oral Capsule CHELSEA ([facility] er) duloxetine 60 MG Delayed Release Oral Ca psule duloxetine 60 mg capsule,delayed release TAKE ONE CAPSULE BY MOUTH ONCE DAILY duloxetine 60 mg capsule,delayed release TAKE ONE CAPSULE BY MOUTH ONCE DAILY completed duloxetine 60 MG Delayed Release Oral Capsule CHELSEA ([facility]) Lisinopril 30 MG Oral Tablet Lisinopril 30 MG Oral Tab let (ZESTRIL) Lisinopril 30 MG Oral Tablet (ZESTRIL) 30 mg Oral aborted Take 30 mg by mouth daily [facility] Insurance Providers Payer name Policy type / Coverage type Policy ID Covered alliance party ID Covered alliance party's relationship to see Policy See Plan Information Medicaid S [id number] S [id number] Medicaid S [id number] S [id number] [facility] [id number] SP [id number] Managed Care - Community Plan [facility] [id number] S [id number] Medicaid S [id number] S [id number] [employer] COMMUNITY PLAN MCDHMO [id number] SP [id number] Managed Care - [facility] Community Plan P [id number] S [id number] [facility] [id number] SP [id number] Managed Care - Community Plan [facility] P [id number] S [id number] Managed Care - [facility] Community Plan P [id number] S [id number] [facility] I [id number] Self [id number] UH I [id number] Self [id number] UH I [id number] Self [id number] MEDICAID [id number] SP [id number] MEDICAID M [id number] S [id number] SELF PAY ONLY [id number] SP [id number] SELF PAY ONLY [id number] SP [id number] UN COMMUNITY PLAN MCDO [id number] SP [id number] Managed Care BCBS S [id number] S [id number] SELF PAY UNAVAILABLE SP [facility] [id number] SP [id number] HMO BLUE [id number] SP [id number] Managed Care [facility] O UNAVAILABLE S UNAVAILABLE [facility]) O [id number] S [id number] [facility] COMM[facility] PLAN MCDO [id number] SP [id number] ANSI-Medicaid [id number] ANSI-Medicaid [id number] ANSI-Medicaid [id number] ANSI-Medicaid [id number] [facility] Health Maintenance Organization ([facility]) [id number] Self [id number] Self Pay P None S None Managed Care Nadir P [id number] S [id number] [facility] Maintenance [facility] ([facility]) [id number] 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) Diagnosis 04/07/2021 10:17:00 AM [facility] [id number] Fitting procedure Fitting Procedure Problem 03/04 06:13:25 PM EDT SUKI [facility]) Surgeries/Procedures Procedure Description Date Indications Data Source(s) HEMATOPATHOLOGY <td>HEMATOPATHOLOGY</td><td> Routine</td><td>04/07/2021 12:00 AM EST</td><td></td><td> </td> 04/07/2021 12:00:00 AM [facility] BLOOD COUNT COMPLETE AUTOMATED <td>CBC</td><td>Timed</ td><td>12/12/2020 5:28 AM EDT</td><td></td><td> </td> 12/12/2020 05:28:00 AM [facility] PHOSPHORUS INORGANIC <td>PHOSPHORUS LEVEL</td><td >Routine</td><td>12/12/2020 5:28 AM EDT</td><td></td><td> </td> 12/12/2020 05:28:00 AM [facility] MAGNESIUM <td>MAGNESIUM LEVEL</td><td> Routine</td><td>12/12/2020 5:28 AM EDT</td><td></td><td> </td> 12/12/2020 05:28:00 AM [facility] BASIC METABOLIC PANEL CALCIUM TOTAL <td>BASIC METABOLI C PANEL</td><td>Routine</td><td>12/12/2020 5:28 AM EDT</td><td></td><td> </td> 12/12/2020 05:28:00 AM [facility] BLOOD COUNT COMPLETE AUTOMATED <td>CBC</td><td>Timed</ td><td>12/11/2020 3:52 PM EDT</td><td></td><td> </td> 12/11/2020 03:52:00 PM [facility] BLOOD COUNT COMPLETE AUTOMATED <td>CBC</td><td>Timed</ td><td>12/11/2020 6:09 AM EDT</td><td></td><td> </td> 12/11/2020 06:09:00 AM [facility] PHOSPHORUS INORGANIC <td>PHOSPHORUS LEVEL</td><td >Routine</td><td>12/11/2020 6:09 AM EDT</td><td></td><td> </td> 12/11/2020 06:09:00 AM [facility] MAGNESIUM <td>MAGNESIUM LEVEL</td><td> Routine</td><td>12/11/2020 6:09 AM EDT</td><td></td><td> </td> 12/11/2020 06:09:00 AM [facility] BASIC METABOLIC PANEL CALCIUM TOTAL <td>BASIC METABOLI C PANEL</td><td>Routine</td><td>12/11/2020 6:09 AM EDT</td><td></td><td> </td> 12/11/2020 06:09:00 AM [facility] BLOOD COUNT COMPLETE AUTOMATED <td>CBC</td><td>Timed</ td><td>12/10/2020 5:47 PM EDT</td><td></td><td> </td> 12/10/2020 05:47:00 PM [facility] BASIC METABOLIC PANEL CALCIUM TOTAL <td>BASIC METABOLI C PANEL</td><td>Routine</td><td>12/10/2020 1:07 PM EDT</td><td></td><td> </td> 12/10/2020 01:07:00 PM [facility] BLOOD COUNT COMPLETE AUTOMATED <td>CBC</td><td>Timed</ td><td>12/10/2020 10:13 AM EDT</td><td></td><td> </td> 12/10/2020 10:13:00 AM [facility] CALCIUM IONIZED <td>CALCIUM, IONIZED</td><td >Routine</td><td>12/10/2020 10:13 AM EDT</td><td></td><td> </td> 12/10/2020 10:13:00 AM [facility] PHOSPHORUS INORGANIC <td>PHOSPHORUS LEVEL</td><td >Routine</td><td>12/10/2020 5:09 AM EDT</td><td></td><td> </td> 12/10/2020 05:09:00 AM [facility] MAGNESIUM <td>MAGNESIUM LEVEL</td><td> Routine</td><td>12/10/2020 5:09 AM EDT</td><td></td><td> </td> 12/10/2020 05:09:00 AM [facility] COMPREHENSIVE METABOLIC PANEL <td>COMPREHENSIVE METABO LIC PANEL</td><td>Routine</td><td>12/10/2020 5:09 AM EDT</td><td></td><td> </td> 12/10/2020 05:09:00 AM [facility] BLOOD COUNT COMPLETE AUTOMATED <td>CBC</td><td>Timed</ td><td>12/10/2020 12:59 AM EDT</td><td></td><td> </td> 12/10/2020 12:59:00 AM [facility] Screening colonoscopy (procedure) <td>COLONOSCOPY</td> <td></td><td>12/10/2020 12:00 AM EDT</td><td></td><td></td> 12/10/2020 12:00:00 AM [facility] UPPER GI ENDOSCOPY; DX, W/WO SPECIMEN COLLECTION, BRUS RADHA/WASHING (SEP PROC) <td>UPPER GI ENDOSCOPY; DX, W/WO SPECIMEN COLLECTION, BRUSHING/WASHING (SEP PROC)</td><td></td><td>12/09/2020 5:00 PM EDT</td><td> Upper GI bleed</td><td></td> 12/09/2020 05:00:00 PM EDT - 12/09/2020 05:15:00 PM [facility] BLOOD COUNT COMPLETE AUTOMATED <td>CBC</td><td>Timed</ td><td>12/09/2020 4:06 PM EDT</td><td></td><td> </td> 12/09/2020 04:06:00 PM [facility] GLUCOSE QUANTITATIVE BLOOD XCPT REAGENT STRIP <td>POCT GLUCOSE, DOCKED</td><td>Routine</td><td>12/09/2020 12:35 PM EDT</td><td></td><td> </td> 12/09/2020 12:35:00 PM [facility] TRANSFUSE RBC (ONCE) <td>TRANSFUSE RBC (ONCE)</td ><td>STAT</td><td>12/09/2020 11:00 AM EDT</td><td></td><td></td> 12/09/2020 11:00:50 AM [facility] CALCIUM IONIZED <td>CALCIUM, IONIZED</td><td >Routine</td><td>12/09/2020 10:15 AM EDT</td><td></td><td> </td> 12/09/2020 10:15:00 AM [facility] ULTRASOUND ABDOMINAL REAL TIME W/IMAGE LIMITED <td>US ABDOMEN LIMITED [id number]</td><td>Routine</td><td>12/09/2020 10:10 AM EDT</td><td></td><td> </td> 12/09/2020 10:10:00 AM [facility] CULTURE BACTERIAL BLOOD AEROBIC W/ID ISOLATES <td>BLOO D CULTURE</td><td>Routine</td><td>12/09/2020 6:04 AM EDT</td><td></td><td></td> 12/09/2020 06:04:00 AM [facility] BLOOD COUNT COMPLETE AUTOMATED <td>CBC</td><td>Timed</ td><td>12/09/2020 6:04 AM EDT</td><td></td><td> </td> 12/09/2020 06:04:00 AM [facility] PHOSPHORUS INORGANIC <td>PHOSPHORUS LEVEL</td><td >Routine</td><td>12/09/2020 6:04 AM EDT</td><td></td><td> </td> 12/09/2020 06:04:00 AM [facility] MAGNESIUM <td>MAGNESIUM LEVEL</td><td> Routine</td><td>12/09/2020 6:04 AM EDT</td><td></td><td> </td> 12/09/2020 06:04:00 AM [facility] COMPREHENSIVE METABOLIC PANEL <td>COMPREHENSIVE METABO LIC PANEL</td><td>Routine</td><td>12/09/2020 6:04 AM EDT</td><td></td><td> </td> 12/09/2020 06:04:00 AM [facility] TRANSFUSE RBC (ONCE) <td>TRANSFUSE RBC (ONCE)</td ><td>STAT</td><td>12/09/2020 5:45 AM EDT</td><td></td><td></td> 12/09/2020 05:45:38 AM [facility] URNLS DIP STICK/TABLET REAGENT AUTO MICROSCOPY <td>URI NALYSIS WITH REFLEX URINE CULTURE</td><td>STAT</td><td>12/09/2020 2:02 AM EDT</td><td></td><td> </td> 12/09/2020 02:02:00 AM [facility] CULTURE BACTERIAL BLOOD AEROBIC W/ID ISOLATES <td>BLOO D CULTURE</td><td>Routine</td><td>12/09/2020 12:07 AM EDT</td><td></td><td></td> 12/09/2020 12:07:00 AM [facility] UPPER GI ENDOSCOPY <td>UPPER GI ENDOSCOPY</td>< td></td><td>12/09/2020 12:00 AM EDT</td><td></td><td></td> 12/09/2020 12:00:00 AM EDT [facility] COVID-19 PCR <td>COVID-19 PCR</td><td>Rou jason</td><td>12/08/2020 11:59 PM EDT</td><td></td><td> </td> 12/08/2020 11:59:00 PM [facility] THROMBOPLASTIN TIME PARTIAL PLASMA/WHOLE BLOOD <td>PAR TIAL THROMBOPLASTIN TIME (PTT)</td><td>STAT</td><td>12/08/2020 11:59 PM EDT</td><td></td><td> </td> 12/08/2020 11:59:00 PM [facility] PROTHROMBIN TIME <td>PROTIME INR</td><td>STAT </td><td>12/08/2020 11:59 PM EDT</td><td></td><td> </td> 12/08/2020 11:59:00 PM [facility] BLOOD COUNT COMPLETE AUTOMATED <td>CBC</td><td>Timed</ td><td>12/08/2020 11:59 PM EDT</td><td></td><td> </td> 12/08/2020 11:59:00 PM [facility] BLOOD TYPING ABO <td>TYPE AND SCREEN</td><td> STAT</td><td>12/08/2020 11:59 PM EDT</td><td></td><td> </td> 12/08/2020 11:59:00 PM [facility] LIPASE <td>LIPASE LEVEL</td><td>STA T</td><td>12/08/2020 11:59 PM EDT</td><td></td><td> </td> 12/08/2020 11:59:00 PM [facility] COMPREHENSIVE METABOLIC PANEL <td>COMPREHENSIVE METABO LIC PANEL</td><td>Routine</td><td>12/08/2020 11:59 PM EDT</td><td></td><td> </td> 12/08/2020 11:59:00 PM [facility] Results ID Date Data Source [id number] 04/08/2021 03:50:00 PM [facility] Hematopathology ReportName: CASIE MORINMRN: [id number] Number: [id number] Date: 04/07/2021 00:00Received Date: 04/08/2021 12:47Physician(s): RYAN MORRISON MD ADJAPONG, OPOKU, MDSpecimen(s) ReceivedA: Fine Needle Aspiration, Flow Cytometry; [facility]CE[facility]LY[facility] HistoryEnlarged lymph nodesTEST REQUESTED/PERFORMED: Flow Cytometry Analysis DiagnosisFlow cytometry of right neck lymph node, FNA: No evidence of non-Hodgkinlymphoma. As the sample shows significant cell degeneration, the flowresults might not be care support representative of the sampled tissue.Yoav alcantar M.D.;Resident PathologistElectronically Signed By Lay Gaitan M.D. Attending Pathologist 04/08/2021 15:50:33The attending pathologist named above attests that he/she has personallyreviewed the relevant preparation(s) for the specimen(s) and rendered thefinal diagnosis. ProceduresFlow Cytometry Date Ordered:04/08/2021 Status: Signed Out04/08/2021 InterpretationA cytospin shows mostly degenerating cells.Lymphoma [place] Panel The following markers were assayed: CD45 (gate), CD2, CD3, CD4, CD5, CD7,CD8, CD10, CD19, CD20, Wolf Trap, and Lambda.Events :[id number] NOTE: Routinely a minimum of 50,000 events are collectedin each panel tube. Due to sample cellularity and/or processing thisnumber was not achievable for this sample.No viability performed due to low cellularity.Flow Cytometry Differential (CD45/SSC)Lymphocyte Filer: 2%CD45 dim Filer: 0%Monocyte Filer: 0%Granulocyte Filer: 8%Nucleated/Erythroid Filer: 13%The lymphocyte gate showsB-Cells (CD19): 8%Wolf Trap/Lambda Ratio: 2.7T-Cells (CD3): 86%CD4/CD8 Ratio: 6.9Results: (expressed as % of lymphocyte gate)B-cell Markers: CD19 = 8, CD19/CD5 = 1Gated on CD19+ cells: CD19/Wolf Trap = 3, CD19/Lambda = 1, CD19/CD10 = [...] were developed and theirperformance characteristics determined by [facility] Pathology department.They have not been cleared or approved by the US Food and DrugAdministration. The FDA has determined that such clearance or approval isnot necessary. Name Value Range Interpretation Code Description Data Lou rce(s) Supporting Document(s) ID Date Data Source [id number] 04/04/2021 05:06:00 PM EST [facility] Name Value Range Interpretation Code Description [facility] SARS coronavirus 2 RNA [Presence] in Res piratory specimen by TOYA with probe detection NEGATIVE [facility] This lab was ordered by [facility] a nd reported by [facility]. ID Date Data Source [id number] 12/12/2020 05:24:26 PM EDT [facility] Name Value Range Interpretation Code Description Data [facility] Supporting Document(s) Discharge Summary [facility] OIQKOr0nVhNGTnGc90/TVOyxXCGlm2EzNJstSAq6TOhsXVKxB1FwKQW0lN2lZIE3HMvUEkXqUuUoXgR7 lbm [file] Maria Guadalupe/[id number]/iG [file] [id number]jEpFI1RGXi= ID Date Data Source [id number] 12/12/2020 06:08:11 AM EDT [facility] Name Value Range Interpretation Code Description Data Lou rce(s) Supporting Document(s) Leukocytes [#/volume] in Blood by Automated count 5.5 10*3/uL 4-10 [facility] Erythrocytes [#/volume] in Blood by Automated count 2.87 10*6/uL 4.6- 6.1 L [facility] Hemoglobin [Mass/volume] in Blood 7.8 g/dL 13.5-18 L [facility] Hematocrit [Volume Fraction] of Blood by Automated count 24.3 % 4 1-53 L [facility] Erythrocyte mean corpuscular volume [Entitic volume] by Auto mated count 84.8 fL 80-96 [facility] Erythrocyte mean corpuscular hemoglobin [Entitic mass] by Automated count 27.3 pg 27-33 [facility] Erythrocyte mean corpuscular hemoglobin concentration [Mass/volume] by Automated count 32.2 g/dL [facility].0[facility] width [Ratio] by Automated count 17.3 % 11.5-14.5 H [facility] Platelets [#/volume] in Blood by Automated count 112 10*3/uL 150-400 L [facility] ID Date Data Source [id number] 12/12/2020 06:27:20 AM [facility] Name Value Range Interpretation Code Description Data Lou rce(s) Supporting Document(s) Bicarbonate [Moles/volume] in Serum 23 mmol/L 22-29 [facility] Chloride [Moles/volume] in Serum or Plasma 102 mmol/L 98-107 [facility] Creatinine [Mass/volume] in Serum or Plasma 0.55 mg/dL 0.70-1.20 L [facility] Glucose [Mass/volume] in Serum or Plasma 102 mg/dL 70-140 [facility] Potassium [Moles/volume] in Serum or Plasma 3.5 mmol/L 3.4-5.1 [facility] Sodium [Moles/volume] in Serum or Plasma 133 mmol/L 136-145 L [facility] Urea nitrogen [Mass/volume] in Serum or Plasma 5 mg/dL 6-20 [facility] Anion gap 3 in Serum or Plasma 9 mmol/L 8-15 [facility] Osmolality of Serum or Plasma by calculation 274 mosm/kg 275-300 L [facility] Creatinine/Urea nitrogen [Mass Ratio] in Serum or Plasma 9 [facility] Calcium [Mass/volume] in Serum or Plasma 8.0 mg/dL 8.6-10.0 [facility] Glomerular filtration rate/1.73 sq M pre dicted among non-blacks [Volume Rate/Area] in Serum or Plasma by Creatinine-based formula (MDRD) >6 0 [facility] Glomerular filtration rate/1.73 sq M pre dicted among blacks [Volume Rate/Area] in Serum or Plasma by Creatinine-based formula (MDRD) >60 [facility] ID Date Data Source [id number] 12/12/2020 06:27:20 AM [facility] Value Range Interpretation Code Description Data Lou rce(s) Supporting Document(s) Phosphate [Mass/volume] in Serum or Plasma 3.1 mg/dL 2.5-4.5 [facility] ID Date Data Source [id number] 12/12/2020 06:27:20 AM [facility] Value Range Interpretation Code Description Data Lou rce(s) Supporting Document(s) Magnesium [Mass/volume] in Serum or Plasma 2.0 mg/dL 1.6-2.6 [facility] ID Date Data Source [id number] 12/11/2020 04:51:04 PM [facility] Name Value Range Interpretation Code Description Data Lou rce(s) Supporting Document(s) Leukocytes [#/volume] in Blood by Automated count 5.3 10*3/uL 4-10 [facility] Erythrocytes [#/volume] in Blood by Automated count 2.88 10*6/uL 4.6- 6.1 L [facility] Hemoglobin [Mass/volume] in Blood 8.2 g/dL 13.5-18 L [facility] Hematocrit [Volume Fraction] of Blood by Automated count 24.5 % 4 1-53 L [facility] Erythrocyte mean corpuscular volume [Entitic volume] by Auto mated count 84.9 fL 80-96 [facility] Erythrocyte mean corpuscular hemoglobin [Entitic mass] by Automated count 28.5 pg 27-33 [facility] Erythrocyte mean corpuscular hemoglobin concentration [Mass/volume] by Automated count 33.5 g/dL 32.0-[facility] E[facility]throcyte distribution width [Ratio] by Automated count 16.9 % 11.5-14.5 H [facility] Platelets [#/volume] in Blood by Automated count 105 10*3/uL 150-400 L [facility] ID Date Data Source [id number] 12/11/2020 03:28:44 PM [facility] Name Value Range Interpretation Code Description Data Lou rce(s) Supporting Document(s) History and Physical [facility] [id number]/[id number]fQYA7aI5dUPA1VWrPDpUzDmLpHuK8 [facility] [file] [id number]ehITSHNw8B ID Date Data Source [id number] 12/11/2020 06:57:52 AM [facility] Name Value Range Interpretation Code Description Data Lou rce(s) Supporting Document(s) Leukocytes [#/volume] in Blood by Automated count 4.6 10*3/uL 4-10 [facility] Erythrocytes [#/volume] in Blood by Automated count 2.74 10*6/uL 4.6- 6.1 L [facility] Hemoglobin [Mass/volume] in Blood 7.7 g/dL 13.5-18 L [facility] Hematocrit [Volume Fraction] of Blood by Automated count 23.0 % 4 1-53 L [facility] Erythrocyte mean corpuscular volume [Entitic volume] by Auto mated count 84.2 fL 80-96 [facility] Erythrocyte mean corpuscular hemoglobin [Entitic mass] by Automated count 28.1 pg 27-33 [facility] Erythrocyte mean corpuscular hemoglobin concentration [Mass/volume] by Automated count 33.3 g/dL 32.0-[facility]th[facility] distribution width [Ratio] by Automated count 17.0 % 11.5-14.5 H [facility] Platelets [#/volume] in Blood by Automated count 105 10*3/uL 150-400 L [facility] ID Date Data Source [id number] 12/11/2020 08:31:44 AM [facility] Value Range Interpretation Code Description Data Lou rce(s) Supporting Document(s) Magnesium [Mass/volume] in Serum or Plasma 2.1 mg/dL 1.6-2.6 [facility] ID Date Data Source [id number] 12/11/2020 08:31:44 AM [facility] Value Range Interpretation Code Description Data Lou rce(s) Supporting Document(s) Bicarbonate [Moles/volume] in Serum 22 mmol/L 22-29 [facility] Chloride [Moles/volume] in Serum or Plasma 101 mmol/L 98-107 [facility] Creatinine [Mass/volume] in Serum or Plasma 0.52 mg/dL 0.70-1.20 L [facility] Glucose [Mass/volume] in Serum or Plasma 91 mg/dL 70-140 [facility] Potassium [Moles/volume] in Serum or Plasma 3.5 mmol/L 3.4-5.1 [facility] Sodium [Moles/volume] in Serum or Plasma 133 mmol/L 136-145 L [facility] Urea nitrogen [Mass/volume] in Serum or Plasma 6 mg/dL 6-20 [facility] Anion gap 3 in Serum or Plasma 10 mmol/L 8-15 [facility] Osmolality of Serum or Plasma by calculation 273 mosm/kg 275-300 L [facility] Creatinine/Urea nitrogen [Mass Ratio] in Serum or Plasma 12 [facility] Calcium [Mass/volume] in Serum or Plasma 7.6 mg/dL 8.6-10.0 L [facility] Glomerular filtration rate/1.73 sq M pre dicted among non-blacks [Volume Rate/Area] in Serum or Plasma by Creatinine-based formula (MDRD) >6 0 [facility] Glomerular filtration rate/1.73 sq M pre dicted among blacks [Volume Rate/Area] in Serum or Plasma by Creatinine-based formula (MDRD) >60 [facility] ID Date Data Source [id number] 12/11/2020 08:31:44 AM [facility] Name Value Range Interpretation Code Description Data Lou rce(s) Supporting Document(s) Phosphate [Mass/volume] in Serum or Plasma 3.0 mg/dL 2.5-4.5 [facility] ID Date Data Source [id number] 12/10/2020 05:53:09 PM [facility] Name Value Range Interpretation Code Description Data Lou rce(s) Supporting Document(s) History and Physical [facility] [id number]/[id number]tHPS2eM8iWRU6LEoOPgIfRaWqTiJd [facility] [file] [id number]XQa2I ID Date Data Source [id number] 12/10/2020 05:53:04 PM EDT [facility] Name Value Range Interpretation Code Description Data Lou rce(s) Supporting Document(s) History and Physical [facility] OPBTMn0dMaCRQdYd75/YLBvdJHAxo8CrCKkoMRb4RXdhJVMlK9BhCOR5iZ1iISG1QPmSDyXvGhCyPmPe lbm RxRryTEvLcRBTcVgpERrGkFYvqRrkifAKyQG8WiTQ8BYDdC30nWGWoCFBwB7KlSAIhGwX+Zj6HXTOmlL UyHB3ZNvgY6Dsvx4o3BD6s0I4CtCFXXxMgZpP1pide1Ypp+JJ4N+nl+BedGipixlaj6bxF6I9uIZpKH0 Wx6dc2llAVw0vhoC2m+J7aBFGYFBRlB4exgf8HPtB/ +blySlk8OD/5X7voc8V0R/KQ8CBaSAWi+dUD+U+z851ga4E0Khdp68DqF/tBJBq5d58Vjolr55tsl0HB fzFu2/lYLCnrgjXPrHJtkKDjr9Kwr1CsHLXD4oy9uMoYRnOufReatx7JxQpFzthBB75DfN+rJsyr6wwy kflpCk7FlcM5ZaPctPAcUyRpS3NJBedIyLlx/FrKBx Z1chVEv5uwcQPg0ByaJlYf9fw1qs8VezLqgpG0YgeaUpnefPbX2JPq+7HHa2oHpGNky6mWq03jpn0P2K Ve/kpexOPEDI2IKAkCY0Ff42MPJWdDqgvktfPKjjYQeG0Xr3D3ah5bi0z3blUHtn71OFrIvRdtvEa+rA ldrVDzGTLOBknFr9Iaq8llnoP/T2EmuwPfl5lK9vW1 fvcH2ARkFQCznhG3GR4UlVwXZ2YsDROCVRqmB51JMI7r4n/41QRHtkIB0eWmp7bE4cZFHuJMNJo9mz+K TFSfmSErVPPrlM0ldkEh69dY30f1l4G9HUB7H6jf/b0l2cXqLTYJp06dZaGqhYE4EJID6DyxSaPpRKNR qRO6+A8IC+/aCJwdTaDSllVT8ZZOuIem2JwjcfDqxb hVVbw4voe67Fp+lh/7Hhg3ynzkXq5dpGAMfIRkG+eNQW6D1xGLzTaujvF+EKJmbRPmNSqsDzsBh3hyEy UaDC5ebFVwhDlyKS+bkTC4FYzh3vHwgE1CfppnvzFRuskqQHZzi4GomIDvAVv/gNpjW3rtotcI9EvW4r PV9Aavcikl434VcfE1edhJ78BgiRHpnWxoGWI/yzti Jke5Hf3Vm+zoxXv2/mFJjV38hHORY0Jq/DpEDRlAYvsl6PHzYZ/Drnv7+PR1l5/O7d9MMjsp6Fa1W+26 8I27USd0XPOFI3oTUDKTn0Ajaz68iDcGjwv3PhwdnxSR6NqDt5PfjBGkK0sA0DHw4U0Ba/zQa7j/NIEy XRxe0Uj2r19UrrcGO0GII/7ohhO13wg0cC3Cw+fsZG 9v/QIuS5KCRS8GmokBqX6jLOfoTiBfIfTw0ZXSNlxvf/MqWmerNA/39Klku4Q7s1OXMXqiU8vy7lsXBG oQ8E1Jpy7gu2l1PB45OCqZTtHoppeUqhRmi8yDmF2dDWbc9G9AvZZsZDMlm0HlsvGrJ42g1kAK1ClbxR gvWbfQeq3yNuLYos7aL8/E6jK3WRum71XPfwYM4Xh1 A0qBp4Y4+yMI15fb2aM5sOUGAV7gXGs9nwgAxAEyPLz3KlP3E8wDHnbV9a5AYZisn2YZ++m0FgNTFL3Q JcOvWusmkeCkm4F6i3ywDOPQQcOPl7tCRBYPhV5FqkVAbpLd+J5ZFd3XCapLwWjYV9FRLCHWnMyrZnQS FN16sKHx77HlymFdnOkfBFru6MvCxfx5QaiZb4dI4x ILkBXLPWWaz8UumIYBqlU/CyATK1Tmn+marker hand+4Mw46yDX/rfnh+MD/HMn7IsViDzig/C32UC89k+3pTrbs 8P/wOJyoShBmnTDi8uJ6YFI6RUJpCSpdsWIlilf0aI93fLA6/Ah1ORc3nBsvvKU8iaRDAsDZgyqtwcN4 x8Z/2SRCTWpzHOGxSmLVfpGZPjt0sYnUov6S8mLzoy R21hbmzdMN4i+ui5FxtiZzDCpRgBO5oiTg2eP6eANJVWkjTrO5km7EnYGw6fNnf9R/rhz11kQEqVBSiP UzASRxaUBtU2eJE9S1EFhdH2VYAUsIfGJdvP0j7Z7af1srGnegtDtU9y2SXw86wBQ5uU7BAIjLT8GgOx SSTB4WW1jDKTkLwrID9KTkoUBoLBpvyBhr+Gx4zTn1 Qaac0Fsa38+WrF7z6MemtMbAW4Mc+Mr0uGDrQ3qho6627Muyj416/qN41qXV9ze7cw3JtYSulAg+tgYI EcnvQEz6T+Qfp2WijZrRcuI/ESp9D0diLp4vrMXSgXWineGcmur5kG9tjb+rc/W1bg/+C2Txe6DMAu7v +3mPAW0z8J165cOWFu17u24T8m/aCX3+sO9x/Q9lC4 [file] [id number]= ID Date Data Source [id number] 12/10/2020 05:52:44 PM EDT [facility] Name Value Range Interpretation Code Description Data Lou rce(s) Supporting Document(s) Consultation [facility] LHPZPj9oMyNLUoSo06/FHEkeTJZrq1XhQJlqUJb1TOgwIGCeU1DyGNJ6tP2aTQE9VSvULoVuJwSlKsMk lbm [file] [id number]0R ID Date Data Source [id number] [facility]2020 [facility]22[facility] Value [facility] Interpretation Code Description Data Lou rce(s) Supporting Document(s) Leukocytes [#/volume] in Blood by Automated count 8.4 10*3/uL 4-10 [facility] Erythrocytes [#/volume] in Blood by Automated count 3.48 10*6/uL 4.6- 6.1 L [facility] Hemoglobin [Mass/volume] in Blood 9.7 g/dL 13.5-18 L [facility] Hematocrit [Volume Fraction] of Blood by Automated count 29.9 % 4 1-53 L [facility] Erythrocyte mean corpuscular volume [Entitic volume] by Auto mated count 85.9 fL 80-96 [facility] Erythrocyte mean corpuscular hemoglobin [Entitic mass] by Automated count 27.9 pg 27-33 [facility] Erythrocyte mean corpuscular hemoglobin concentration [Mass/volume] by Automated count 32.5 g/dL 32.0-[facility] distribution width [Ratio] by Automated count 17.3 % 11.5-14.5 H [facility] Platelets [#/volume] in Blood by Automated count 127 10*3/uL 150-400 L [facility] ID Date Data Source [id number] 12/10/2020 01:48:36 PM [facility] Name Value Range Interpretation Code Description Data Lou rce(s) Supporting Document(s) Bicarbonate [Moles/volume] in Serum 22 mmol/L 22-29 [facility] Chloride [Moles/volume] in Serum or Plasma 102 mmol/L 98-107 [facility] Creatinine [Mass/volume] in Serum or Plasma 0.54 mg/dL 0.70-1.20 L [facility] Glucose [Mass/volume] in Serum or Plasma 84 mg/dL 70-140 [facility] Potassium [Moles/volume] in Serum or Plasma 3.9 mmol/L 3.4-5.1 [facility] Sodium [Moles/volume] in Serum or Plasma 132 mmol/L 136-145 L [facility] Urea nitrogen [Mass/volume] in Serum or Plasma 7 mg/dL 6-20 [facility] Anion gap 3 in Serum or Plasma 8 mmol/L 8-15 [facility] Osmolality of Serum or Plasma by calculation 271 mosm/kg 275-300 L [facility] Creatinine/Urea nitrogen [Mass Ratio] in Serum or Plasma 13 [facility] Calcium [Mass/volume] in Serum or Plasma 7.9 mg/dL 8.6-10.0 L [facility] Glomerular filtration rate/1.73 sq M pre dicted among non-blacks [Volume Rate/Area] in Serum or Plasma by Creatinine-based formula (MDRD) >6 0 [facility] Glomerular filtration rate/1.73 sq M pre dicted among blacks [Volume Rate/Area] in Serum or Plasma by Creatinine-based formula (MDRD) >60 [facility] ID Date Data Source [id number] 12/10/2020 10:56:25 AM [facility] Name Value Range Interpretation Code Description Data Lou rce(s) Supporting Document(s) Calcium.ionized [Moles/volume] in Arterial blood 1.08 mmol/L 1.13-1.3 2 [facility] ID Date Data Source [id number] 12/10/2020 10:55:28 AM [facility] Name Value Range Interpretation Code Description Data Lou rce(s) Supporting Document(s) Leukocytes [#/volume] in Blood by Automated count 6.5 10*3/uL 4-10 [facility] Erythrocytes [#/volume] in Blood by Automated count 3.30 10*6/uL 4.6- 6.1 L [facility] Hemoglobin [Mass/volume] in Blood 9.2 g/dL 13.5-18 L [facility] Hematocrit [Volume Fraction] of Blood by Automated count 28.1 % 4 1-53 [facility] Erythrocyte mean corpuscular volume [Entitic volume] by Auto mated count 85.3 fL 80-96 [facility] Erythrocyte mean corpuscular hemoglobin [Entitic mass] by Automated count 27.8 pg 27-33 [facility] Erythrocyte mean corpuscular hemoglobin concentration [Mass/volume] by Automated count 32.7 g/dL 32.0-36.0 [facility] Erythrocyte distribution width [Ratio] by Automated count 17.3 % 11.5-14.5 H [facility] Platelets [#/volume] in Blood by Automated count 110 10*3/uL 150-400 L [facility] ID Date Data Source [id number] 12/10/2020 06:01:23 AM [facility] Name Value Range Interpretation Code Description Data Lou rce(s) Supporting Document(s) Magnesium [Mass/volume] in Serum or Plasma 2.2 mg/dL 1.6-2.6 [facility] ID Date Data Source [id number] 12/10/2020 06:01:23 AM [facility] Value Range Interpretation Code Description Data Lou rce(s) Supporting Document(s) Phosphate [Mass/volume] in Serum or Plasma 3.1 mg/dL 2.5-4.5 [facility] ID Date Data Source [id number] 12/10/2020 06:01:23 AM [facility] Value Range Interpretation Code Description Data Lou rce(s) Supporting Document(s) Albumin [Mass/volume] in Serum or Plasma by Bromocresol green (BCG) dye binding method 2.3 g/dL 3.5-5.2 L [facility] Bilirubin.total [Mass/volume] in Serum or Plasma 1.2 mg/dL <1.2 H [facility] Calcium [Mass/volume] in Serum or Plasma 7.5 mg/dL 8.6-10.0 L [facility] Chloride [Moles/volume] in Serum or Plasma 102 mmol/L 98-107 [facility] Creatinine [Mass/volume] in Serum or Plasma 0.57 mg/dL 0.70-1.20 L [facility] Glucose [Mass/volume] in Serum or Plasma 88 mg/dL 70-140 [facility] Alkaline phosphatase [Enzymatic activity/volume] in Serum or Plasma 104 U/L 40-129 [facility] Potassium [Moles/volume] in Serum or Plasma 3.8 mmol/L 3.4-5.1 [facility] Protein [Mass/volume] in Serum or Plasma 4.7 g/dL 6.4-8.3 L [facility] Sodium [Moles/volume] in Serum or Plasma 129 mmol/L 136-145 L [facility] Aspartate aminotransferase [Enzymatic activity/volume] in Serum or Plasma 145 U/L <40 H [facility] Urea nitrogen [Mass/volume] in Serum or Plasma 8 mg/dL 6-20 [facility] Osmolality of Serum or Plasma by calculation 265 mosm/kg 275-300 L [facility] Creatinine/Urea nitrogen [Mass Ratio] in Serum or Plasma 14 [facility] Bicarbonate [Moles/volume] in Serum 20 mmol/L 22-29 L [facility] Alanine aminotransferase [Enzymatic activity/volume] in Seru m or Plasma 54 U/L <41 H [facility] Anion gap 3 in Serum or Plasma 6 mmol/L 8-15 L [facility] Glomerular filtration rate/1.73 sq M pre dicted among non-blacks [Volume Rate/Area] in Serum or Plasma by Creatinine-based formula (MDRD) >6 0 [facility] Glomerular filtration rate/1.73 sq M pre dicted among blacks [Volume Rate/Area] in Serum or Plasma by Creatinine-based formula (MDRD) >60 [facility] ID Date Data Source [id number] 12/10/2020 01:34:51 AM EDT [facility] Name Value Range Interpretation Code Description Data Lou rce(s) Supporting Document(s) Leukocytes [#/volume] in Blood by Automated count 7.5 10*3/uL 4-10 [facility] Erythrocytes [#/volume] in Blood by Automated count 2.95 10*6/uL 4.6- 6.1 [facility] Hemoglobin [Mass/volume] in Blood 8.1 g/dL 13.5-18 L [facility] Hematocrit [Volume Fraction] of Blood by Automated count 25.3 % 4 1-53 [facility] Erythrocyte mean corpuscular volume [Entitic volume] by Auto mated count 85.9 fL 80-96 [facility] Erythrocyte mean corpuscular hemoglobin [Entitic mass] by Automated count 27.5 pg 27-33 [facility] Erythrocyte mean corpuscular hemoglobin concentration [Mass/volume] by Automated count 32.1 g/dL 32.0-36.0 [facility] Erythrocyte distribution width [Ratio] by Automated count 17.2 % 11.5-14.5 H [facility] Platelets [#/volume] in Blood by Automated count 105 10*3/uL 150-400 L [facility] ID Date Data Source [id number] 12/09/2020 06:15:27 PM EDT [facility] Name Value Range Interpretation Code Description Data Lou rce(s) Supporting Document(s) Consultation [facility] [id number]/IHLcsCCVtl9NzEDkgHQe2JWtwPSDvL4AdYBU9zR1eYZB6UMmZKiUoAmUiWuFr lbm [file] [id number]+GD0rWXs+Sc6Yo6CpvcC8pwMaPBkpDHq1Ly4VJMVGD5NWGi== ID Date Data Source [id number] 12/09/2020 05:06:16 PM [facility] Name Value Range Interpretation Code Description Data Lou e(s) Supporting Document(s) Leukocytes [#/volume] in Blood by Automated count 6.0 10*3/uL 4-10 [facility] Erythrocytes [#/volume] in Blood by Automated count 3.13 10*6/uL 4.6- 6.1 L [facility] Hemoglobin [Mass/volume] in Blood 8.7 g/dL 13.5-18 L [facility] Hematocrit [Volume Fraction] of Blood by Automated count 26.6 % 4 1-53 L [facility] Erythrocyte mean corpuscular volume [Entitic volume] by Auto mated count 84.9 fL 80-96 [facility] Erythrocyte mean corpuscular hemoglobin [Entitic mass] by Automated count 27.9 pg 27-33 [facility] Erythrocyte mean corpuscular hemoglobin concentration [Mass/volume] by Automated count 32.9 g/dL 32.0-[facility] E[facility]th[facility] distribution width [Ratio] by Automated count 17.1 % 11.5-14.5 H [facility] Platelets [#/volume] in Blood by Automated count 100 10*3/uL 150-400 L [facility] ID Date Data Source [id number] 12/09/2020 12:45:01 PM EDT [facility] Name Value Range Interpretation Code Description Data Lou rce(s) Supporting Document(s) Glucose [Mass/volume] in Capillary blood by Glucometer 94 mg/dL 70- 140 [facility] ID Date Data Source [id number] 12/09/2020 11:21:01 AM [facility] US ABDOMEN LIMITED [id number] RESULTInte rpreted by:Jessica Lr, DOStudy: ULTRASOUND ABDOMEN [...] rce(s) Supporting Document(s) ID Date Data Source [id number] 12/[facility] Name Value Range Interpretation Code Description Data Lou rce(s) Supporting Document(s) Calcium.ionized [Moles/volume] in Arterial blood 1.13 mmol/L 1.13-1.3 2 [facility] ID Date Data Source [id number] 12/14/2020 10:43:44 AM [facility] Service Cmnt XXX-Imp : R ARMMicroorganis m XXX Cult : No growth 5 days Name Value Range Interpretation Code Description Data Lou rce(s) Supporting Document(s) ID Date Data Source [id number] 12/09/2020 06:24:47 AM [facility] Name Value Range Interpretation Code Description Data Lou rce(s) Supporting Document(s) Leukocytes [#/volume] in Blood by Automated count 6.9 10*3/uL 4-10 [facility] Erythrocytes [#/volume] in Blood by Automated count 2.54 10*6/uL 4.6- 6.1 L [facility] Hemoglobin [Mass/volume] in Blood 7.0 g/dL 13.5-18 L [facility] Hematocrit [Volume Fraction] of Blood by Automated count 21.3 % 4 1-53 L [facility] Erythrocyte mean corpuscular volume [Entitic volume] by Auto mated count 83.7 fL 80-96 [facility] Erythrocyte mean corpuscular hemoglobin [Entitic mass] by Automated count 27.4 pg 27-33 [facility] Erythrocyte mean corpuscular hemoglobin concentration [Mass/volume] by Automated count 32.7 g/dL 32.0-36.0 [facility] Eryth[facility] distribution width [Ratio] by Automated count 17.1 % 11.5-14.5 H [facility] Platelets [#/volume] in Blood by Automated count 107 10*3/uL 150-400 L [facility] ID Date Data Source [id number] 12/09/2020 06:41:24 AM EDT [facility] Name Value Range Interpretation Code Description Data Lou rce(s) Supporting Document(s) Albumin [Mass/volume] in Serum or Plasma by Bromocresol green (BCG) dye binding method 2.1 g/dL 3.5-5.[address] [facility] Bilirubin.total [Mass/volume] in Serum or Plasma 1.1 mg/dL <1.2 [facility] Calcium [Mass/volume] in Serum or Plasma 7.2 mg/dL 8.6-10.0 L [facility] Chloride [Moles/volume] in Serum or Plasma 106 mmol/L 98-107 [facility] Creatinine [Mass/volume] in Serum or Plasma 0.47 mg/dL 0.70-1.20 L [facility] Glucose [Mass/volume] in Serum or Plasma 81 mg/dL 70-140 [facility] Alkaline phosphatase [Enzymatic activity/volume] in Serum or Plasma 104 U/L 40-129 [facility] Potassium [Moles/volume] in Serum or Plasma 4.0 mmol/L 3.4-5.1 [facility] Protein [Mass/volume] in Serum or Plasma 4.3 g/dL 6.4-8.3 L [facility] Sodium [Moles/volume] in Serum or Plasma 131 mmol/L 136-145 L [facility] Aspartate aminotransferase [Enzymatic activity/volume] in Serum or Plasma 52 U/L <40 H [facility] Urea nitrogen [Mass/volume] in Serum or Plasma 14 mg/dL 6-20 [facility] Osmolality of Serum or Plasma by calculation 272 mosm/kg 275-300 L [facility] Creatinine/Urea nitrogen [Mass Ratio] in Serum or Plasma 29 [facility] Bicarbonate [Moles/volume] in Serum 19 mmol/L 22-29 L [facility] Alanine aminotransferase [Enzymatic activity/volume] in Seru m or Plasma 19 U/L <41 [facility] Anion gap 3 in Serum or Plasma 6 mmol/L 8-15 L [facility] Glomerular filtration rate/1.73 sq M pre dicted among non-blacks [Volume Rate/Area] in Serum or Plasma by Creatinine-based formula (MDRD) >6 0 [facility] Glomerular filtration rate/1.73 sq M pre dicted among blacks [Volume Rate/Area] in Serum or Plasma by Creatinine-based formula (MDRD) >60 [facility] ID Date Data Source [id number] 12/09[facility]2020 09[facility]48[facility] Name Value Range Interpretation Code Description Data Lou rce(s) Supporting Document(s) Magnesium [Mass/volume] in Serum or Plasma 1.7 mg/dL 1.6-2.6 [facility] ID Date Data Source [id number] 12/09/2020 09:48:45 AM [facility] Name Value Range Interpretation Code Description Data Lou rce(s) Supporting Document(s) Phosphate [Mass/volume] in Serum or Plasma 2.3 mg/dL 2.5-4.5 L [facility] ID Date Data Source [id number] 12/09/2020 02:18:20 AM [facility] Name Value Range Interpretation Code Description Data Lou rce(s) Supporting Document(s) Color of Urine [facility] Clarity of Urine [facility] Specific gravity of Urine by Refractometry automated 1.010 1.003 -1.030 [facility] pH of Urine by Automated test strip 7.0 5.0-8.0 [facility] Protein [Mass/volume] in Urine by Automated test strip Neg [facility] Glucose [Mass/volume] in Urine by Automated test strip Neg [facility] Ketones [Mass/volume] in Urine by Automated test strip Neg [facility] Bilirubin.total [Presence] in Urine by Automated test strip Negative [facility] Hemoglobin [Presence] in Urine by Automated test strip Neg [facility] Leukocyte esterase [Presence] in Urine by Automated test strip Negative [facility] Nitrite [Presence] in Urine by Automated test strip Negati ve [facility] Leukocytes [#/area] in Urine sediment by Automated count 0 /HPF 0 -5 [facility] Erythrocytes [#/area] in Urine sediment by Automated count 0 /HPF 0-3 [facility] Service comment [facility] ID Date Data Source [id number] 12/14/2020 10:43:44 AM [facility] Service Cmnt XXX-Imp : L ARMMicroorganis m XXX Cult : No growth 5 days Name Value Range Interpretation Code Description Data Lou rce(s) Supporting Document(s) ID Date Data Source [id number] 12/11/2020 07:07:34 AM EDT [facility] Name Value Range Interpretation Code Description Data Lou rce(s) Supporting Document(s) ABO and Rh group [Type] in Blood [facility] Blood group antibody screen [Presence] in Serum or Plasma [facility] Performed at [facility], Raquel Stark Geeta brody, [id number] ID Date Data Source [id number] 12/08/2020 11:59:00 PM EDT [facility] Name Value Range Interpretation Code Description Data Lou rce(s) Supporting Document(s) SARS-CoV-2 RNA 2019 nCoV Real-Time RT-PCR: NOT DETECTED [facility] This lab was ordered by [facility] and reported by [facility]. ID Date Data Source [id number] 12/09/2020 09:30:29 AM EDT [facility] Value Range Interpretation Code Description Data Lou rce(s) Supporting Document(s) Specimen source [Identifier] of Unspecified specimen [facility] SARS-CoV-2 RNA 2019 nCoV Real-Time RT-PCR: NOT DETECTED [facility] Assay Performed [facility] Patients first test for [facility] Patient employed in healthcare setting [facility] Patient has symptoms related to [facility] When did you start to experience these symptoms [Date and time] [Phen X] [facility] Patient was hospitalized because of this condition [facility] patient was admitted to ICU for [facility] Patient resides in a congregate care setting [facility] status [facility] ID Date Data Source [id number] 12/09/2020 12:23:05 AM EDT [facility] Name Value Range Interpretation Code Description Data Lou rce(s) Supporting Document(s) Leukocytes [#/volume] in Blood by Automated count 11.0 10*3/uL 4-10 H [facility] Erythrocytes [#/volume] in Blood by Automated count 2.48 10*6/uL 4.6- 6.1 L [facility] Hemoglobin [Mass/volume] in Blood 6.6 g/dL 13.5-18 L [facility] Hematocrit [Volume Fraction] of Blood by Automated count 20.1 % 4 1-53 [facility] Called to and read back by fito starr rn 6i [id number] at 0022 by 1522 Erythrocyte mean corpuscular volume [Entitic volume] by Auto mated count 81.1 fL 80-96 [facility] Erythrocyte mean corpuscular hemoglobin [Entitic mass] by Automated count 26.6 pg 27-33 L [facility] Erythrocyte mean corpuscular hemoglobin concentration [Mass/volume] by Automated count 32.7 g/dL 32.0-36.0 [facility] Erythrocyte distribution width [Ratio] by Automated count 16.2 % 11.5-14.5 H [facility] Platelets [#/volume] in Blood by Automated count 131 10*3/uL 150-400 L [facility] ID Date Data Source [id number] 12/09/2020 12:31:19 AM [facility] Value Range Interpretation Code Description Data Lou rce(s) Supporting Document(s) aPTT in Platelet poor plasma by Coagulation assay 31.0 s 24.0-33. 0 [facility] ID Date Data Source [id number] 12/09/2020 12:31:19 AM [facility] Value Range Interpretation Code Description Data Lou rce(s) Supporting Document(s) Prothrombin time (PT) 16.9 s 11.6-14.0 H [facility] INR in Platelet poor plasma by Coagulation assay 1.44 [facility] Routine intensity oral anticoagulation I NR is typically 2.0-3.0. Target INR must be clinically individualized. ID Date Data Source [id number] 12/09/2020 12:52:30 AM [facility] Value Range Interpretation Code Description Data Lou rce(s) Supporting Document(s) Lipase [Enzymatic activity/volume] in Serum or Plasma 226 U/L 13-6 0 H [facility] ID Date Data Source [id number] 12/09/2020 12:52:30 AM [facility] Value Range Interpretation Code Description Data Lou rce(s) Supporting Document(s) Albumin [Mass/volume] in Serum or Plasma by Bromocresol green (BCG) dye binding method 2.4 g/dL 3.5-5.2 L [facility] al Bilirubin.total [Mass/volume] in Serum or Plasma 1.0 mg/dL <1.2 [facility] Calcium [Mass/volume] in Serum or Plasma 7.9 mg/dL 8.6-10.0 L [facility] Chloride [Moles/volume] in Serum or Plasma 97 mmol/L 98-107 L [facility] Creatinine [Mass/volume] in Serum or Plasma 0.49 mg/dL 0.70-1.20 L [facility] Glucose [Mass/volume] in Serum or Plasma 92 mg/dL 70-140 [facility] Alkaline phosphatase [Enzymatic activity/volume] in Serum or Plasma 121 U/L 40-129 [facility] Potassium [Moles/volume] in Serum or Plasma 3.9 mmol/L 3.4-5.1 [facility] Protein [Mass/volume] in Serum or Plasma 4.8 g/dL 6.4-8.3 L [facility] Sodium [Moles/volume] in Serum or Plasma 125 mmol/L 136-145 L [facility] Aspartate aminotransferase [Enzymatic activity/volume] in Serum or Plasma 52 U/L <40 H [facility] Urea nitrogen [Mass/volume] in Serum or Plasma 17 mg/dL 6-20 [facility] Osmolality of Serum or Plasma by calculation 261 mosm/kg 275-300 [facility] Creatinine/Urea nitrogen [Mass Ratio] in Serum or Plasma 35 [facility] Bicarbonate [Moles/volume] in Serum 22 mmol/L 22-29 [facility] Alanine aminotransferase [Enzymatic activity/volume] in Seru m or Plasma 21 U/L <41 [facility] Anion gap 3 in Serum or Plasma 6 mmol/L 8-15 L [facility] Glomerular filtration rate/1.73 sq M pre dicted among non-blacks [Volume Rate/Area] in Serum or Plasma by Creatinine-based formula (MDRD) >6 0 [facility] Glomerular filtration rate/1.73 sq M pre dicted among blacks [Volume Rate/Area] in Serum or Plasma by Creatinine-based formula (MDRD) >60 [facility] ID Date Data Source [id number] 12/08/2020 06:44:00 PM EDT [facility] Name Value Range Interpretation Code Description Data Lou rce(s) Supporting Document(s) SARS coronavirus 2 RNA [Presence] in Res piratory specimen by TOYA with probe detection NEGATIVE [facility] This lab was ordered by [facility] a nd reported by [facility]. ID Date Data Source [id number] 11/26/2020 08:42:12 AM EDT [facility] Name Value Range Interpretation Code Description Data Lou rce(s) Supporting Document(s) ED Provider Note [facility] JXHRAf5oToCZKtBg90/GDVbvGZBqm5MtIMlgBMu1PIycBSNqT9YrOJX5pN4hPWR6VXmJGfNsFbQhCxK9 lbm [file] AwMzQzNiAwMDAwMCBuDQowMDAwMDAzNjQwIDAwMDAw WN8XMkNyRCPwNXK6FfBmRDAgYJIvdg1IJLNzMDLrTvG0HUHqWSQwTDSfQMzyDGYtFQG8WpK4DKDiHHHj NG9GEcXaVTAoHWm6RGQoJSFmEBItkl7NAASrPSHkLrQqTTUaEIMrCQNoSXqfIIZrXFDaCbA1FYYhLZVl ZP0OViNgOHLzZIK8ZHYrMSUnXVWwsl4ZFGYgNCBaWm AxLPPvEQUgQNEjBXhnLQBrBEX7WHIqXMTdYXNnVC6WZbHgGZWmKRe5HUlxQYOvUSLpxd5RJLJsHAVbNn V8LHMtULDyFFSpKOfaZURrKGUxRfC1QXThROWlCO5KJrIcCZNhNiDtImruUQEpQHZmem9YPLXjOGCuVa H1OEHbROIfMSEvGCdmQRDxPWL4DkdrYVMcCBZmTA7J MuVlSCCbQho0PSUwAZXdFGVrjp9IYQRbQXWyIhNlMpRpQAWeHBHaJZhwMMGjQSGqETXpSSLyODLbUL2H QtGtSEKnCbH9FKMiGQHbXMEeag2NNYCoUIFaCFobRXEyAFMjZYNyXOxmPCTwMRS4DazbUUWwQEQpNB9J XbGbHKBtBog0LXhtCJThTRCsgo5XEAWdTJH5YPx5DY ZaYFOjJLBtNDisUPUoOUHjRSPwESLgXTJoDB1KGtYnIYZbFLYuHgVrYQAgDWSjtl6PVPBlFSU8IdBcTY CoOKIzUBTwKJqmZKUwXQRjZZXgWHAcLDClKO2IHuIoYAVlWBZvSjYrREKoPBTimp0LMNEkSGE2FkQ8Wp YhFAQrFBJdNTucMDMzRVTcSgPyUCRgLLQaBI5OJoXv ERMrOIQaExSmTHOwUAEobr2YFVIoYJL0SSI8XwOuBSIwIRVaKTruYYBxHVH6XkJyMAPvKKDsLN3KYkJf RQEzOTR4OXJgRBGzKOAimo3VAGSwORO6XwI5AzNzPFVfSFQdAPtxSFWuPIF2ANlfCARfJMNlYA1PKzUe QZJmVXrhJxYqKRQrGHFtzy0LSYLjZPO9RuJ7XoSfLO SeYXNdVOuhHOTwAZV9WpFzNTCgMJNtJF3GHnToBJOpDCjuDZQkJVOuZEPhgl3KDQEcRPV6PWM0XtYeDB LmREJfOMemWPNqNIK2HYC6WAYmOKQcJC8CAyBbNXDiXFb5CaqjIGFyQIVzdg4GUYMwMIL8JQn4XuIiQZ WyCOWuWAeeOKBzIIJvJQI8VYUyEYReWT9QCfHlYJIj EnXtUUttVLBdEOJfas9PeZOpiKysvp0LBFfFMe5TjIoqSEUvEJabDb7teUZ2FtRnSJAADk0JkfEpCICs AYSGSUtvLJAhDHAwTUR6ITBoBbD7YGSuLANzION9CLfaY0O6EnunHKW5VyL3Z6B7YfnuIsO3NwyhDJUd RYH6DqxjJSCrRfZ5VJX9Ngn+VZ2zJDb+Ob8Ce2GdxjY5eiNxUMu7DWC4Ua1GSVQHV7IROx== ID Date Data Source [id number] 11/17/2020 11:27:03 PM EDT [facility] Name Value Range Interpretation Code Description Data Lou rce(s) Supporting Document(s) Discharge Summary [facility] ZMQOIo8vTbGKZzLu44/WVGsrTNFau8FkEGueHSw1TKxiLXYfX5GmLNP2fP7uWFC1WWxIOaMpCpDsZqBc lbm [file] F8XjL2EHksEw7lHMIXYk7+UFyurAFhvJziMXQTJrG6KGU5OUlkANEZGg7Q ID Date Data Source [id number] 11/17/2020 03:42:22 PM EDT [facility] Name Value Range Interpretation Code Description Data Lou rce(s) Supporting Document(s) Progress Note [facility] LIDMNc0wMbYNBvIi45/NIOlbCATjx9RuJIgsNWp2QBfoPEWzF1CnGWX3hE2nGQK9NNmDZdMgKcSnFzDl lbm [file] YNCg== ID Date Data Source [id number] 11/17/2020 03:24:34 PM EDT [facility] Name Value Range Interpretation Code Description Data Lou rce(s) Supporting Document(s) Consultation [facility] ZUZLUw7iPrWEZgUr33/VEFlgRKYjf4IsAJvcEDv2FAppQXHmX5XyMZX9yP9mSDV6YVbVUuSuYzVhAsCp lbm [file] ICAgICAgICAgICAgICAgICAgICAgICAgICAgICAgICAgICAgICAgICAgICAgICAgICAgICAgICAgICAg ICAgICAgICAgICAgICANCiAgICAgICAgICAgICAgIC AgICAgICAgICAgICAgICAgICAgICAgICAgICAgICAgICAgICAgICAgICAgICAgICAgICAgICAgICAgIC AgICAgICAgICAgICAgICAgICAgICAgICANCiAgICAgICAgICAgICAgICAgICAgICAgICAgICAgICAgIC AgICAgICAgICAgICAgICAgICAgICAgICAgICAgICAg ICAgICAgICAgICAgICAgICAgICAgICAgICAgICAgICAgICANCiAgICAgICAgICAgICAgICAgICAgICAg ICAgICAgICAgICAgICAgICAgICAgICAgICAgICAgICAgICAgICAgICAgICAgICAgICAgICAgICAgICAg ICAgICAgICAgICAgICAgICANCiAgICAgICAgICAgIC AgICAgICAgICAgICAgICAgICAgICAgICAgICAgICAgICAgICAgICAgICAgICAgICAgICAgICAgICAgIC AgICAgICAgICAgICAgICAgICAgICAgICAgICANCiAgICAgICAgICAgICAgICAgICAgICAgICAgICAgIC AgICAgICAgICAgICAgICAgICAgICAgICAgICAgICAg ICAgICAgICAgICAgICAgICAgICAgICAgICAgICAgICAgICAgICANCiAgICAgICAgICAgICAgICAgICAg ICAgICAgICAgICAgICAgICAgICAgICAgICAgICAgICAgICAgICAgICAgICAgICAgICAgICAgICAgICAg ICAgICAgICAgICAgICAgICAgICANCiAgICAgICAgIC AgICAgICAgICAgICAgICAgICAgICAgICAgICAgICAgICAgICAgICAgICAgICAgICAgICAgICAgICAgIC AgICAgICAgICAgICAgICAgICAgICAgICAgICAgICANCiAgICAgICAgICAgICAgICAgICAgICAgICAgIC AgICAgICAgICAgICAgICAgICAgICAgICAgICAgICAg ICAgICAgICAgICAgICAgICAgICAgICAgICAgICAgICAgICAgICAgICANCiAgICAgICAgICAgICAgICAg ICAgICAgICAgICAgICAgICAgICAgICAgICAgICAgICAgICAgICAgICAgICAgICAgICAgICAgICAgICAg ICAgICAgICAgICAgICAgICAgICAgICANCjw/eHBhY2 ojcHGggxJ5D2moVm2EDz4EHU5dd9CiXZOiTPkjfzMkAgjNSrWoSYTcBlxMFzh2LYgtFY5RaTUwZ4KxK1 PwMJnsOV7BSZNsYXKxiJEgTYRtOSReVfE2USWxVUhaFT9HeZCaAFiiZTGgIEMyAdMxMLLwACIqBSXiHC ZtBQCSSUEgFOLwNaWdZJfhVM1Af2KxoQY1WFp+Pg0K PR2ld0DhXOmmVlNaST5aja0ZBOwDUwNtY5BsvlP9NFG9PTZfEh3ZHMGqHDWryGZlILRsHAXWTfNnW9Aj jT09XZWNCw4+WGkfalDsVxlBToP5DOKzs8QrZMg6PS9WTKRkRKw2jVEoL75dn2KtmXJiIwzlUIYktQMk nXPkRPJAq9XdsONxMGUXHFPMRQH5OJXyUdSkWmWeZF SmIqwdORLHMYyUOhMeU2Fki2LbPaU5QDHdJgDnXGxeQSGuFaB0BF96zAgiJG3BXCRuUJKqDL58MZG2AV PsQt7KUw6ABaRwRO5lnn1UDydrQUIfGrzFIvs3NKuaGJ4YuOGdO0NlhAMea6rULqJwK8IWSOV5FWQgWc 6KAWOaDoHsKOVvJZjfPR1lFQQzXLNOnHytusS0OY0G DV0nzcWwIM4KNfCoPu3vIw7GRfQwW8PvN5SkYTKgTSIMHKjfQP5XXKjpWK5iCX1Ee6CCeVPojA2xbm7Y KNTyZEAkQhxheb6KHpjoL1A2tGjyKYJpBpdrGLNIMZmeHC6QJGLuBDP9PHYlLlMsMFCLJdRoU86sDL1Z Q2Lib49wJwN0OOVlCtMnEFjbQH11oQwjfpEjkDSiaP wnCE4LMu4+JHreuxWgGbrBKxorBVFZEfWcVjDAGiOtGEHeXAXvPVNmByN3TdMlKi2ZCEGpOZZwUFZqDy DkDOFvAFLxQMltJAKgCDHkLFn3BHXgQORpNX4PUuZfAAPoBqYzKGKwPBAcOGKidt3PVRBgEIVrHND9Eb PnGBQqPLDlZZwaXBThMIWjVOC2CDUqJJBlIN5NLpEg EIZmZFG0AmXfTYByUVNpgz6ICBDaXWNjOaf4WcTiSDWaCIZcZUfiDCBzWSX6NJN0JQWxQDFyPV7KRcZv CCCuLDQgKwDtDNPjCTGbfw3WDCLaPXCnALR9YTFqMYImZUPwBDekSBPiNYR0BSUrWSNrQHFcMY5AFoGa EERzVDKgGKmbPUHxGUCmep6QXJDdGMCbCBQ2GdWhXL ApQCJdHFadTYXhTVH9UCc2HEWzIMSrEA7CHsFoYEWyAUY5EoguRCCaMPSiii5MRHAjMAHxRnwkFOEpIZ OdVQBtDPudXEYyEPJ4JQQ9LNHeVOVkVK6UQkMvEEGfGLx5JonzFNBuZWQsht7VCYBaXGFiINX3MPGdZU VlZIAlTVyeYYQgLWW9AzC9IRHjWFKqCB2YNxFxBJFa Rza5ZMFlRQCvJEVuyd0WPDNwTMCdRXf4CRJlAHBaXABoJOpsDDUjYYItOBc4PJQxODRzOJ8NEdYlWXWr DjD8WVcnYFMjJCPmuw5UJLWhAMLyZKK6IDUbSRYzDUIfEZwfWSJaREVdUZU0ELRlVPTkIY5RSbKwRKPx EjV9MezvQVXgVVAltm1YGEDqYASyUoElSQTyXBUoGT FgPOwfZRWaYXYvGeF2BFTrASEqMV1DEyCgDAqkYRIUHbm6HRfuF9h1GDOpRD1CD7Eym7CgIitsVHXJFL zsMD9ljzThUHJhJh0CC4rXBennV9LmCwHaTNX1GMomLPSxWhU9KLCaEfH1Z1Y7OCVbTj9qBXVbZIJjMS RnIOI9J5ApISQpKCmuVVI6COiuCJWeJUKoZaNwTG 0DOa6VJeX9VNB0oABnOc2PEuL4EVHMHvWsSL4HHUz= ID Date Data Source [id number] 11/17/2020 02:27:40 PM EDT [facility] Name Value Range Interpretation Code Description Data Lou rce(s) Supporting Document(s) Leukocytes [#/volume] in Blood by Automated count 8.2 10*3/uL 4-10 [facility] Erythrocytes [#/volume] in Blood by Automated count 3.30 10*6/uL 4.6- 6.1 L [facility] Hemoglobin [Mass/volume] in Blood 8.8 g/dL 13.5-18 L [facility] Hematocrit [Volume Fraction] of Blood by Automated count 26.5 % 4 1-53 L [facility] Erythrocyte mean corpuscular volume [Entitic volume] by Auto mated count 80.3 fL 80-96 [facility] Erythrocyte mean corpuscular hemoglobin [Entitic mass] by Automated count 26.6 pg 27-33 L [facility] Erythrocyte mean corpuscular hemoglobin concentration [Mass/volume] by Automated count 33.1 g/dL 32.0-[facility] E[facility] distribution width [Ratio] by Automated count 19.2 % 11.5-14.5 H [facility] Platelets [#/volume] in Blood by Automated count 203 10*3/uL 150-400 [facility] Confirmed ID Date Data Source [id number] 11/17/2020 09:20:32 AM EDT [facility] US ABDOMEN LIMITED [id number] RESULTInte rpreted by:ALEX CarringtonROCEDURE INFORMATION: Exam: US [...] which has nodular contour. Series 1, image [id number] indicates normal portal hepatopetal flow of the [...] rce(s) Supporting Document(s) ID Date Data Source [id number] 11/17/2020 08:51:22 AM [facility] Name Value Range Interpretation Code Description [facility] NNMRJh1yEjLRCaYc42/RAGrmUIAsn1QoHYklIDw1GIhrCEHjI0NyLMP9tK6kKXZ3GZyRXlGvDcBfXcZp m [file] Hb5SEjE3RBD0cBUhYo2DCNfcMt9AFCIFQ0HCXd== ID Date Data Source [id number] 11/17/2020 08:31:25 AM EDT [facility] Name Value Range Interpretation Code Description Data Lou rce(s) Supporting Document(s) Glucose [Mass/volume] in Capillary blood by Glucometer 133 mg/dL 70- 140 [facility] ID Date Data Source [id number] 11/17/2020 07:48:05 AM EDT [facility] Name Value Range Interpretation Code Description Data Lou rce(s) Supporting Document(s) History and Physical [facility] FBEAFz6pUgTIKeOh18/TYOabXBTvq5WxNAybJUc0ESitZRHoT1JiZGX3lD1sLDV3VAeDZaGvLfAoRgIq lbm [file] smooth plater+CELofDBuRRLkZxrKttLg3aX2ciPEqzP71HB8pI5CmvFSV6+pG8ct3SzYC+77oi2p8wUbM3zIOZwJ [file] [id number] ID Date Data Source [id number] 11/17/2020 03:04:17 AM EDT [facility] Name Value Range Interpretation Code Description Data Lou rce(s) Supporting Document(s) Leukocytes [#/volume] in Blood by Automated count 7.4 10*3/uL 4-10 [facility] Erythrocytes [#/volume] in Blood by Automated count 3.00 10*6/uL 4.6- 6.1 L [facility] Hemoglobin [Mass/volume] in Blood 7.8 g/dL 13.5-18 L [facility] Hematocrit [Volume Fraction] of Blood by Automated count 24.0 % 4 1-53 L [facility] Erythrocyte mean corpuscular volume [Entitic volume] by Auto mated count 80.2 fL 80-96 [facility] Erythrocyte mean corpuscular hemoglobin [Entitic mass] by Automated count 26.1 pg 27-33 L [facility] Erythrocyte mean corpuscular hemoglobin concentration [Mass/volume] by Automated count 32.6 g/dL 32.0-36.[facility] E[facility] distribution width [Ratio] by Automated count 19.2 % 11.5-14.5 H [facility] Platelets [#/volume] in Blood by Automated count 165 10*3/uL 150-400 [facility] Differential cell count method - Blood [facility] Neutrophils/100 leukocytes in Blood by Automated count 62 % [facility] Lymphocytes/100 leukocytes in Blood by Automated count 13 % [facility] Monocytes/100 leukocytes in Blood by Automated count 21 % [facility] Eosinophils/100 leukocytes in Blood by Automated count 3 % [facility] Basophils/100 leukocytes in Blood by Automated count 1 % [facility] Neutrophils [#/volume] in Blood by Automated count 4.58 10*3/uL 1.8-7 .0 [facility] Lymphocytes [#/volume] in Blood by Automated count 0.99 10*3/uL 1.2-4 .0 L [facility] Monocytes [#/volume] in Blood by Automated count 1.58 10*3/uL 0-0.8 [facility] Eosinophils [#/volume] in Blood by Automated count 0.22 10*3/uL 0-0.5 [facility] Basophils [#/volume] in Blood by Automated count 0.04 10*3/uL 0-0.2 [facility] Nucleated erythrocytes/100 leukocytes [Ratio] in Blood by Automated count 0 /100{WBCs} 0-0 [facility] ID Date Data Source [id number] 11/17/2020 03:21:33 AM EDT [facility] Name Value Range Interpretation Code Description Data Lou rce(s) Supporting Document(s) Bicarbonate [Moles/volume] in Serum 27 mmol/L 22-29 [facility] Chloride [Moles/volume] in Serum or Plasma 97 mmol/L 98-107 [facility] Creatinine [Mass/volume] in Serum or Plasma 0.44 mg/dL 0.70-1.20 [facility] Glucose [Mass/volume] in Serum or Plasma 117 mg/dL 70-140 [facility] Potassium [Moles/volume] in Serum or Plasma 3.2 mmol/L 3.4-5.1 [facility] Sodium [Moles/volume] in Serum or Plasma 132 mmol/L 136-145 [facility] Urea nitrogen [Mass/volume] in Serum or Plasma 6 mg/dL 6-20 [facility] Anion gap 3 in Serum or Plasma 8 mmol/L 8-15 [facility] Osmolality of Serum or Plasma by calculation 273 mosm/kg 275-300 L [facility] Creatinine/Urea nitrogen [Mass Ratio] in Serum or Plasma 14 [facility] Calcium [Mass/volume] in Serum or Plasma 7.7 mg/dL 8.6-10.0 L [facility] Glomerular filtration rate/1.73 sq M pre dicted among non-blacks [Volume Rate/Area] in Serum or Plasma by Creatinine-based formula (MDRD) >6 0 [facility] Glomerular filtration rate/1.73 sq M pre dicted among blacks [Volume Rate/Area] in Serum or Plasma by Creatinine-based formula (MDRD) >60 [facility] ID Date Data Source [id number] 11/17/2020 02:46:49 AM EDT [facility] Value Range Interpretation Code Description Data Lou rce(s) Supporting Document(s) Glucose [Mass/volume] in Capillary blood by Glucometer 132 mg/dL 70- 140 [facility] ID Date Data Source [id number] 11/16/2020 11:03:46 PM [facility] Value Range Interpretation Code Description Data Lou rce(s) Supporting Document(s) Glucose [Mass/volume] in Capillary blood by Glucometer 152 mg/dL 70- 140 [facility] ID Date Data Source [id number] 11/16/2020 07:34:41 PM [facility] Value Range Interpretation Code Description Data Lou rce(s) Supporting Document(s) Glucose [Mass/volume] in Capillary blood by Glucometer 135 mg/dL 70- 140 [facility] ID Date Data Source [id number] 11/16/2020 05:29:34 PM [facility] Value Range Interpretation Code Description Data Lou rce(s) Supporting Document(s) Glucose [Mass/volume] in Capillary blood by Glucometer 90 mg/dL 70- 140 [facility] ID Date Data Source [id number] 11/16/2020 04:15:48 PM [facility] Value Range Interpretation Code Description Data Lou rce(s) Supporting Document(s) Glucose [Mass/volume] in Capillary blood by Glucometer 218 mg/dL 70- 140 [facility] ID Date Data Source [id number] 11/16/2020 03:39:03 PM [facility] Value Range Interpretation Code Description Data Lou rce(s) Supporting Document(s) Leukocytes [#/volume] in Blood by Automated count 8.0 10*3/uL 4-10 [facility] Erythrocytes [#/volume] in Blood by Automated count 3.42 10*6/uL 4.6- 6.1 L [facility] Hemoglobin [Mass/volume] in Blood 8.9 g/dL 13.5-18 L [facility] Hematocrit [Volume Fraction] of Blood by Automated count 27.6 % 4 1-53 L [facility] Erythrocyte mean corpuscular volume [Entitic volume] by Auto mated count 80.8 fL 80-96 [facility] Erythrocyte mean corpuscular hemoglobin [Entitic mass] by Automated count 26.1 pg 27-33 L [facility] Erythrocyte mean corpuscular hemoglobin concentration [Mass/volume] by Automated count 32.3 g/dL [facility].0-[facility] distribution width [Ratio] by Automated count 19.1 % 11.5-14.5 [facility] Platelets [#/volume] in Blood by Automated count 159 10*3/uL 150-400 [facility] Differential cell count method - Blood [facility] Neutrophils/100 leukocytes in Blood by Automated count 69 % [facility] Lymphocytes/100 leukocytes in Blood by Automated count 10 % [facility] Monocytes/100 leukocytes in Blood by Automated count 16 % [facility] Eosinophils/100 leukocytes in Blood by Automated count 4 % [facility] Basophils/100 leukocytes in Blood by Automated count 1 % [facility] Neutrophils [#/volume] in Blood by Automated count 5.58 10*3/uL 1.8-7 .0 [facility] Lymphocytes [#/volume] in Blood by Automated count 0.79 10*3/uL 1.2-4 .0 L [facility] Monocytes [#/volume] in Blood by Automated count 1.32 10*3/uL 0-0.8 H [facility] Eosinophils [#/volume] in Blood by Automated count 0.31 10*3/uL 0-0.5 [facility] Basophils [#/volume] in Blood by Automated count 0.04 10*3/uL 0-0.2 [facility] Nucleated erythrocytes/100 leukocytes [Ratio] in Blood by Automated count 0 /100{WBCs} 0-0 [facility] ID Date Data Source [id number] 11/16/2020 11:51:13 AM [facility] Name Value Range Interpretation Code Description Data Lou rce(s) Supporting Document(s) Glucose [Mass/volume] in Capillary blood by Glucometer 106 mg/dL 70- 140 [facility] ID Date Data Source [id number] 11/16/2020 07:59:02 AM [facility] Name Value Range Interpretation Code Description Data Lou rce(s) Supporting Document(s) Glucose [Mass/volume] in Capillary blood by Glucometer 119 mg/dL 70- 140 [facility] ID Date Data Source [id number] 11/16/2020 05:48:16 AM EDT [facility] Name Value Range Interpretation Code Description Data Lou rce(s) Supporting Document(s) Glucose [Mass/volume] in Capillary blood by Glucometer 101 mg/dL 70- 140 [facility] ID Date Data Source [id number] 11/19/2020 09:27:00 AM EDT [facility] Surgical Pathology ReportName: JEFRY MORINMRN: [id number] Number: [id number] Date: 11/16/2020 00:00Received Date: 11/16/2020 11:32Physician(s): RON LINARES MD OZDEN, NURI,[facility] [place] To[facility] ReceivedA: Antrum biopsyClinical HistoryMelena.DiagnosisSTOMACH, ANTRUM, BIOPSY: MILD CHRONIC GASTRITIS. NO H. PYLORI IDENTIFIED. Electronically Signed By Kelle Ordaz MD, Attending Pathologist 109:27:42Professional services performed at [facility] Pathology Laboratory [facility], [address] [address]. Unless 'gross-only'is specified, the final diagnosis is [...] their pe rformance characteristics determined by [facility] Pathology department. They have not been cleared or approved by the USFood and Drug Administration. The FDA has determined that such clearanceor approval is not necessary. Name Value Range Interpretation Code Description Data Lou rce(s) Supporting Document(s) ID Date Data Source [id number] 11/16/2020 12:27:10 AM EDT [facility] Name Value Range Interpretation Code Description Data Lou rce(s) Supporting Document(s) Bicarbonate [Moles/volume] in Serum 21 mmol/L 22-29 [facility] Chloride [Moles/volume] in Serum or Plasma 99 mmol/L 98-107 [facility] Creatinine [Mass/volume] in Serum or Plasma 0.54 mg/dL 0.70-1.20 L [facility] Glucose [Mass/volume] in Serum or Plasma 106 mg/dL 70-140 [facility] Potassium [Moles/volume] in Serum or Plasma 4.0 mmol/L 3.4-5.1 [facility] Sodium [Moles/volume] in Serum or Plasma 130 mmol/L 136-145 L [facility] Urea nitrogen [Mass/volume] in Serum or Plasma 8 mg/dL 6-20 [facility] Anion gap 3 in Serum or Plasma 11 mmol/L 8-15 [facility] Osmolality of Serum or Plasma by calculation 269 mosm/kg 275-300 [facility] Creatinine/Urea nitrogen [Mass Ratio] in Serum or Plasma 16 [facility] Calcium [Mass/volume] in Serum or Plasma 8.2 mg/dL 8.6-10.0 [facility] Glomerular filtration rate/1.73 sq M pre dicted among non-blacks [Volume Rate/Area] in Serum or Plasma by Creatinine-based formula (MDRD) >6 0 [facility] Glomerular filtration rate/1.73 sq M pre dicted among blacks [Volume Rate/Area] in Serum or Plasma by Creatinine-based formula (MDRD) >60 [facility] ID Date Data Source [id number] 11/16/2020 12:16:14 AM EDT [facility] Name Value Range Interpretation Code Description Data Lou rce(s) Supporting Document(s) Leukocytes [#/volume] in Blood by Automated count 10.6 10*3/uL 4-10 [facility] Erythrocytes [#/volume] in Blood by Automated count 3.43 10*6/uL 4.6- 6.1 L [facility] Hemoglobin [Mass/volume] in Blood 8.9 g/dL 13.5-18 L [facility] Hematocrit [Volume Fraction] of Blood by Automated count 27.7 % 4 1-53 L [facility] Erythrocyte mean corpuscular volume [Entitic volume] by Auto mated count 80.9 fL 80-96 [facility] Erythrocyte mean corpuscular hemoglobin [Entitic mass] by Automated count 25.9 pg 27-33 L [facility] Erythrocyte mean corpuscular hemoglobin concentration [Mass/volume] by Automated count 32.0 g/dL 32.0-36.0 [facility] Erythrocyte distribution width [Ratio] by Automated count 18.7 % 11.5-14.5 H [facility] Platelets [#/volume] in Blood by Automated count 136 10*3/uL 150-400 L [facility] Differential cell count method - Blood [facility] Neutrophils/100 leukocytes in Blood by Automated count 72 % [facility] Lymphocytes/100 leukocytes in Blood by Automated count 7 % [facility] Monocytes/100 leukocytes in Blood by Automated count 17 % [facility] Eosinophils/100 leukocytes in Blood by Automated count 3 % [facility] Basophils/100 leukocytes in Blood by Automated count 1 % [facility] Neutrophils [#/volume] in Blood by Automated count 7.64 10*3/uL 1.8-7 .0 H [facility] Lymphocytes [#/volume] in Blood by Automated count 0.71 10*3/uL 1.2-4 .0 L [facility] Monocytes [#/volume] in Blood by Automated count 1.83 10*3/uL 0-0.8 H [facility] Eosinophils [#/volume] in Blood by Automated count 0.34 10*3/uL 0-0.5 [facility] Basophils [#/volume] in Blood by Automated count 0.06 10*3/uL 0-0.2 [facility] Nucleated erythrocytes/100 leukocytes [Ratio] in Blood by Automated count 0 /100{WBCs} 0-0 [facility] ID Date Data Source [id number] 11/15/2020 11:51:31 PM EDT [facility] Name Value Range Interpretation Code Description Data Lou rce(s) Supporting Document(s) Glucose [Mass/volume] in Capillary blood by Glucometer 108 mg/dL 70- 140 [facility] ID Date Data Source [id number] 11/15[facility]2020 [facility]:23[facility] Value Range Interpretation Code Description Data Lou rce(s) Supporting Document(s) [facility] TWZEEu5cFuCBLtAs08/KYYbpPTCzl9CoLGzpNNi4HKrzASGoK0ZmEBE5tF4dDMX8GWkEYqSnBdEoXiB8 lbm SsDhpGVgCkHPHoEpeWUcSyOXgtEwghcUGmDJ0BwZX3RWTxG08fBSCmOGMiJ4PqFJV1YYS+Ba0IMBPzkK QhJG0OWfvK8E1FjfoDAW7AyR/OLVLZYybq2dMopRH5ZAsd8MSSAHIxLNLhHiCWtkrkZh5+beqGFNg4rs UTM0OO31fmZu/FEQpMG5CV/wsxRkr7q8GX1x/61zB2 VO9O/fUvalPNddbVNr+cLkMXQ4IUwRsDq9Vd2da4uCNLb3oz3D0o6aYDiyjAUPLOL4O69Y25q5Ra/6ts 070POpMnl2fdz6pEdbNO15IjwLz6ZS6qJtOyrmHJc8GVvRpVBmYZpLDXvsmWqGIXiC3zi2Cs2bFNfeOe A/ycg2W/AfrGm4OokLVBuxZ7TFfiEvKo3tbJwrpdEz FhnO3Hgl1hlil7XYX3l+3AXXdum+cYFFewukE8Ktjn+2tMK5ocG9Yg3Nyzd6bCvtjJMF+rLY1ALQ5m4f Zs/8tzZpmIiYu8RTdx8PA3s05JYfb1ruCAql4sT9olTb7gv+SateswWbrB6fwiO0m10Ek5ZWW0rND0r/ 4KuzCxLTQESgQpm2bG7z7jThXnMF32GeU6pBMKjVV6 sIczq5YuKSDjKmNPnnYOhB/ddIOq4dspjpnqcDWDf8cjJkGWM+QdgDygiozQ5rHLavLAEbBc549XkBdx Zunk++QPC4Gy24yE9EH6X4hiqFGbxjri3/RHrl8mONI59jLB0h03FeFG3//MbUMU5/rfprbsMgcdJwff 5eIDUDJQR3DwqOfFOBdEQOX/CNrs86USFYHBt8YIAk [file] OTUzOTQ+MZ0lDXb+Ew4Sb3YngmU9fdUpWYrlTls2St6VDKISR2YWSq== ID Date Data Source [id number] 11/15/2020 07:26:24 PM [facility] Value Range Interpretation Code Description Data Lou rce(s) Supporting Document(s) Glucose [Mass/volume] in Capillary blood by Glucometer 109 mg/dL 70- 140 [facility] ID Date Data Source [id number] 11/15/2020 04:11:20 PM [facility] Value Range Interpretation Code Description Data Lou rce(s) Supporting Document(s) Glucose [Mass/volume] in Capillary blood by Glucometer 111 mg/dL 70- 140 [facility] ID Date Data Source [id number] 11/15/2020 04:23:03 PM [facility] Value Range Interpretation Code Description Data Lou rce(s) Supporting Document(s) Albumin [Mass/volume] in Serum or Plasma by Bromocresol green (BCG) dye binding method 3.3 g/dL 3.5-5.[address] [facility] Bilirubin.total [Mass/volume] in Serum or Plasma 1.9 mg/dL <1.2 [facility] Bilirubin.direct [Mass/volume] in Serum or Plasma 1.1 mg/dL <0.3 [facility] Alkaline phosphatase [Enzymatic activity/volume] in Serum or Plasma 135 U/L 40-129 [facility] Aspartate aminotransferase [Enzymatic activity/volume] in Serum or Plasma 267 U/L <40 [facility] Alanine aminotransferase [Enzymatic activity/volume] in Seru m or Plasma 136 U/L <41 [facility] Protein [Mass/volume] in Serum or Plasma 5.9 g/dL 6.4-8.3 L [facility] ID Date Data Source [id number] 11/15/2020 05:07:41 PM [facility] Value Range Interpretation Code Description Data Lou rce(s) Supporting Document(s) Leukocytes [#/volume] in Blood by Automated count 9.0 10*3/uL 4-10 [facility] Erythrocytes [#/volume] in Blood by Automated count 3.38 10*6/uL 4.6- 6.1 L [facility] Hemoglobin [Mass/volume] in Blood 9.0 g/dL 13.5-18 L [facility] Hematocrit [Volume Fraction] of Blood by Automated count 27.3 % 4 1-53 L [facility] Erythrocyte mean corpuscular volume [Entitic volume] by Auto mated count 80.8 fL 80-96 [facility] Erythrocyte mean corpuscular hemoglobin [Entitic mass] by Automated count 26.7 pg 27-33 L [facility] Erythrocyte mean corpuscular hemoglobin concentration [Mass/volume] by Automated count 33.0 g/dL 32.0-[facility] E[facility]throcyte distribution width [Ratio] by Automated count 18.6 % 11.5-14.5 H [facility] Platelets [#/volume] in Blood by Automated count 124 10*3/uL 150-400 L [facility] Confirmed Differential cell count method - Blood [facility] Neutrophils/100 leukocytes in Blood by Automated count 76 % [facility] Lymphocytes/100 leukocytes in Blood by Automated count 6 % [facility] Monocytes/100 leukocytes in Blood by Automated count 14 % [facility] Eosinophils/100 leukocytes in Blood by Automated count 3 % [facility] Basophils/100 leukocytes in Blood by Automated count 1 % [facility] Neutrophils [#/volume] in Blood by Automated count 6.78 10*3/uL 1.8-7 .0 [facility] Lymphocytes [#/volume] in Blood by Automated count 0.56 10*3/uL 1.2-4 .0 L [facility] Monocytes [#/volume] in Blood by Automated count 1.26 10*3/uL 0-0.8 H [facility] Eosinophils [#/volume] in Blood by Automated count 0.29 10*3/uL 0-0.5 [facility] Basophils [#/volume] in Blood by Automated count 0.06 10*3/uL 0-0.2 [facility] Nucleated erythrocytes/100 leukocytes [Ratio] in Blood by Automated count 0 /100{WBCs} 0-0 [facility] ID Date Data Source [id number] 11/15/2020 04:56:38 PM [facility] Name Value Range Interpretation Code Description Data Lou rce(s) Supporting Document(s) Hepatitis C virus Ab [Presence] in Serum or Plasma by Immuno assay Non Reactive [facility] No serological evidence of active infect ion. If recent exposure is suspected, test for HCV RNA. ID Date Data Source [id number] 11/15/2020 07:13:54 AM [facility] Name Value Range Interpretation Code Description Data Lou rce(s) Supporting Document(s) Bicarbonate [Moles/volume] in Serum 19 mmol/L 22-29 L [facility] Chloride [Moles/volume] in Serum or Plasma 102 mmol/L 98-107 [facility] Creatinine [Mass/volume] in Serum or Plasma 0.69 mg/dL 0.70-1.20 [facility] Glucose [Mass/volume] in Serum or Plasma 112 mg/dL 70-140 [facility] Potassium [Moles/volume] in Serum or Plasma 3.9 mmol/L 3.4-5.1 [facility] Sodium [Moles/volume] in Serum or Plasma 130 mmol/L 136-145 [facility] Urea nitrogen [Mass/volume] in Serum or Plasma 13 mg/dL 6-20 [facility] Anion gap 3 in Serum or Plasma 9 mmol/L 8-15 [facility] Osmolality of Serum or Plasma by calculation 270 mosm/kg 275-300 [facility] Creatinine/Urea nitrogen [Mass Ratio] in Serum or Plasma 19 [facility] Calcium [Mass/volume] in Serum or Plasma 8.2 mg/dL 8.6-10.0 [facility] Glomerular filtration rate/1.73 sq M pre dicted among non-blacks [Volume Rate/Area] in Serum or Plasma by Creatinine-based formula (MDRD) >6 0 [facility] Glomerular filtration rate/1.73 sq M pre dicted among blacks [Volume Rate/Area] in Serum or Plasma by Creatinine-based formula (MDRD) >60 [facility] ID Date Data Source [id number] 11/15/2020 07:47:52 AM EDT [facility] Name Value Range Interpretation Code Description Data Lou e(s) Supporting Document(s) Leukocytes [#/volume] in Blood by Automated count 7.5 10*3/uL 4-10 [facility] Erythrocytes [#/volume] in Blood by Automated count 3.25 10*6/uL 4.6- 6.1 [facility] Hemoglobin [Mass/volume] in Blood 8.5 g/dL 13.5-18 L [facility] Hematocrit [Volume Fraction] of Blood by Automated count 26.2 % 4 1-53 [facility] Erythrocyte mean corpuscular volume [Entitic volume] by Auto mated count 80.6 fL 80-96 [facility] Erythrocyte mean corpuscular hemoglobin [Entitic mass] by Automated count 26.2 pg 27-33 L [facility] Erythrocyte mean corpuscular hemoglobin concentration [Mass/volume] by Automated count 32.5 g/dL 32.0-36.0 [facility] Erythrocyte distribution width [Ratio] by Automated count 18.5 % 11.5-14.5 H [facility] Platelets [#/volume] in Blood by Automated count 123 10*3/uL 150-400 L [facility] Confirmed Differential cell count method - Blood [facility] Neutrophils/100 leukocytes in Blood by Automated count 72 % [facility] Lymphocytes/100 leukocytes in Blood by Automated count 10 % [facility] Monocytes/100 leukocytes in Blood by Automated count 13 % [facility] Eosinophils/100 leukocytes in Blood by Automated count 4 % [facility] Basophils/100 leukocytes in Blood by Automated count 1 % [facility] Neutrophils [#/volume] in Blood by Automated count 5.47 10*3/uL 1.8-7 .0 [facility] Lymphocytes [#/volume] in Blood by Automated count 0.72 10*3/uL 1.2-4 .0 L [facility] Monocytes [#/volume] in Blood by Automated count 0.97 10*3/uL 0-0.8 H [facility] Eosinophils [#/volume] in Blood by Automated count 0.32 10*3/uL 0-0.5 [facility] Basophils [#/volume] in Blood by Automated count 0.05 10*3/uL 0-0.2 [facility] Nucleated erythrocytes/100 leukocytes [Ratio] in Blood by Automated count 0 /100{WBCs} 0-0 [facility] ID Date Data Source [id number] 11/15/2020 12:33:23 PM [facility] Name Value Range Interpretation Code Description Data Lou rce(s) Supporting Document(s) Phosphate [Mass/volume] in Serum or Plasma 2.4 mg/dL 2.5-4.5 [facility] ID Date Data Source [id number] 11/14/2020 11:16:15 PM [facility] Name Value Range Interpretation Code Description Data Lou rce(s) Supporting Document(s) [facility] KKFQCc3cFpBFVkGy90/TYYviXKIga0ZmKVexLXn8XVwoKBZyH5JqDZG4jH8kVTV2TAoDUuHvZeJaHvL1 lbm WqEbmHRtPpRCXqXgjAYcRhCHwxNarrfKXeCS7XjPR1WGXzA36lRMHnZGCbD9EtFTE1GiJ+Xn4ZCNWcgL EeDH7XVhvS7N7xBmqOJo0+8p6OTA67autFttt2uBGDAmLuCUL5Kt2mq6BV9Q0lQA+P8p10M7/DpirDL6 5qlpFBdWNfie8vxe9uz2wZHCO+44luaIHPbeA36+zP IQRP2R04+9/UvJvnzrrN/2SdyAOuEztR+UD+p6e/phJIzap4rMN5mRbzEv+2EYCwe37DTuJM88Som+ri d6U9L2/OnfARjB8AWHI1Cka7EwK4oHIumAJAbtzTr8pWv+WDn2DegP9G3aWvxLUGhTDHnjAj4zFXimnx atbPdBxD8oaNISPggULfeVYNMM9Axbko3YnAdwT1s6 E+yS4m3QB+wf98fvUsu3HiDIihbmECvb8xMdgxdY9S1KUQBe8GVygVqRKuzD6vyFLKb1M+ueNu9Cn+zN I91hVagq9uoWp4RojB9oceNPiem5LL+2qdiel8jI4lT+lW1M28R5dPpil78flRpJDltutL68A84JeHni OxMkiBg1RCXNzSmAAct+haMtWUSebl688e2FJgeiik yzJbnPfZTdpbsjhUGKulOs/+bUuC5sR+VQc2eDGkQddVP/HDWV7ko+/hlk0nYDLAUEg8TJmMQ6pRazvT U0yiUnTNrloQGkbzmBAViQw8xVVoUXolhVNz9YYK6dmdql8vp0LsC8sh0UHvZj3LiRvbsZR/HWrLLkrQ bEpqe5gtPGz2UfoY5eVvTDJaA36/NlP9d7CBFNgEc2 CBAkidWUDAfw1mR3H88Pm4NuZzzGh7VjrOyckgqeMRpEb8pdEK4Ls7H9LUTVWcG7HBqb6bsgWwDl+Mars [file] CrQcz5IkquYVI4ZRKbToHiDSHdYnHwHU3dSPZFQz1+HGmkfCVkmUwbHGXPOhM5IBZ0IQxjOEHVMa7K ID Date Data Source [id number] 11/15/2020 12:29:07 AM [facility] Name Value Range Interpretation Code Description Data Lou rce(s) Supporting Document(s) Leukocytes [#/volume] in Blood by Automated count 7.5 10*3/uL 4-10 [facility] Erythrocytes [#/volume] in Blood by Automated count 3.11 10*6/uL 4.6- 6.1 L [facility] Hemoglobin [Mass/volume] in Blood 8.0 g/dL 13.5-18 L [facility] Hematocrit [Volume Fraction] of Blood by Automated count 24.9 % 4 1-53 L [facility] Erythrocyte mean corpuscular volume [Entitic volume] by Auto mated count 80.0 fL 80-96 [facility] Erythrocyte mean corpuscular hemoglobin [Entitic mass] by Automated count 25.8 pg 27-33 L [facility] Erythrocyte mean corpuscular hemoglobin concentration [Mass/volume] by Automated count 32.3 g/dL 32.0-36.[facility] distribution width [Ratio] by Automated count 18.7 % 11.5-14.5 H [facility] Platelets [#/volume] in Blood by Automated count 120 10*3/uL 150-400 L [facility] Confirmed Differential cell count method - Blood [facility] Neutrophils/100 leukocytes in Blood by Automated count 71 % [facility] Lymphocytes/100 leukocytes in Blood by Automated count 11 % [facility] Monocytes/100 leukocytes in Blood by Automated count 13 % [facility] Eosinophils/100 leukocytes in Blood by Automated count 4 % [facility] Basophils/100 leukocytes in Blood by Automated count 1 % [facility] Neutrophils [#/volume] in Blood by Automated count 5.34 10*3/uL 1.8-7 .0 [facility] Lymphocytes [#/volume] in Blood by Automated count 0.83 10*3/uL 1.2-4 .0 [facility] Monocytes [#/volume] in Blood by Automated count 0.96 10*3/uL 0-0.8 H [facility] Eosinophils [#/volume] in Blood by Automated count 0.32 10*3/uL 0-0.5 [facility] Basophils [#/volume] in Blood by Automated count 0.06 10*3/uL 0-0.2 [facility] Nucleated erythrocytes/100 leukocytes [Ratio] in Blood by Automated count 0 /100{WBCs} 0-0 [facility] ID Date Data Source [id number] 11/14/2020 03:50:27 PM EDT [facility] Name Value Range Interpretation Code Description Data Lou rce(s) Supporting Document(s) History and Physical [facility] PHMXZy8pZwYJPePz35/GTLaeNRLvn0UwDDesRYp3PJbxDPVtE4HoFPG7fG4fJCW5WCcSVhXxQiPlHvF3 lbm [file] AgICAgICAgICAgICAgICAgICAgICAgICAgICAgICAgICAgICAgICAgICAgICAgICAgICAgICAgICAgIC AgICAgICAgICAgICAgICAgICAgICAgICAgICAgICAgICAgICAgICANCiAgICAgICAgICAgICAgICAgIC AgICAgICAgICAgICAgICAgICAgICAgICAgICAgICAg ICAgICAgICAgICAgICAgICAgICAgICAgICAgICAgICAgICAgICAgICAgICAgICAgICANCiAgICAgICAg ICAgICAgICAgICAgICAgICAgICAgICAgICAgICAgICAgICAgICAgICAgICAgICAgICAgICAgICAgICAg ICAgICAgICAgICAgICAgICAgICAgICAgICAgICAgIC ANCiAgICAgICAgICAgICAgICAgICAgICAgICAgICAgICAgICAgICAgICAgICAgICAgICAgICAgICAgIC AgICAgICAgICAgICAgICAgICAgICAgICAgICAgICAgICAgICAgICAgICANCiAgICAgICAgICAgICAgIC AgICAgICAgICAgICAgICAgICAgICAgICAgICAgICAg ICAgICAgICAgICAgICAgICAgICAgICAgICAgICAgICAgICAgICAgICAgICAgICAgICAgICANCiAgICAg ICAgICAgICAgICAgICAgICAgICAgICAgICAgICAgICAgICAgICAgICAgICAgICAgICAgICAgICAgICAg ICAgICAgICAgICAgICAgICAgICAgICAgICAgICAgIC AgICANCiAgICAgICAgICAgICAgICAgICAgICAgICAgICAgICAgICAgICAgICAgICAgICAgICAgICAgIC AgICAgICAgICAgICAgICAgICAgICAgICAgICAgICAgICAgICAgICAgICAgICANCiAgICAgICAgICAgIC AgICAgICAgICAgICAgICAgICAgICAgICAgICAgICAg ICAgICAgICAgICAgICAgICAgICAgICAgICAgICAgICAgICAgICAgICAgICAgICAgICAgICAgICANCiAg ICAgICAgICAgICAgICAgICAgICAgICAgICAgICAgICAgICAgICAgICAgICAgICAgICAgICAgICAgICAg ICAgICAgICAgICAgICAgICAgICAgICAgICAgICAgIC AgICAgICANCiAgICAgICAgICAgICAgICAgICAgICAgICAgICAgICAgICAgICAgICAgICAgICAgICAgIC AgICAgICAgICAgICAgICAgICAgICAgICAgICAgICAgICAgICAgICAgICAgICAgICANCjw/cWYzB3orbH GwrxU9I3nwKq8CPz6EYT4if3InOYAoFJkolnQjEagM WkMdTECeVevIKwj6RTojAZ2YvIPwB2CeG7BrHObqFD3RBSCyLDUffOZbHWOlWWVgGbN5TCBxHFadWX6H xBOnOLcnPEUjQAYkAvVeABAeOTYtICMqBUYdRAICLRRqDRVzUjOiVUmjUV4Eb2OfwHF0QJu+Gg3CFC1a s3RhUZciImPsXK2ldk1BEKyRPlNkG6ZgqwI8QPU1KA UeZe5OQDWdEGFtcTQmIyZyWPPVIpZdN5HowI38XWYGZv6+XUlkssHfSvwQOjT0OAGqy1GjTTy2XR8JMG PrYQv9yOIeQLOBBRK4AWg5cfOtWWLskXVmQUWJVYEakNY2HzF4UcOjRyRsHRU3ZPAxNL3cKLnrHL5FNI G2JJjlLOBdXXFyX4yJNqCdNHHyOXGdzKslVA9FZhDz M2SkcbYfzXGqXtXsWFYPRe5+ACuwboVgPrmIFoK3OEQzy5QjBRg3WM0ZLZTuBVdiWE9QVFAysP0oCAsj HQ4EIgGvLBQfCNIREyKhF00eqJPmLJp6J0LjAoKyPWApGnycVOJhRAzrGjNdTBVkQzPzIIuwEM3+ID4+ JGaiQF2HJQzxcwVsARNaVu4ZIRQcROTwJO6rEZQdHC TnX0W2vWmaDCWSOnHeV5yizvkgRZ2pSOEaE626tPeckkGiYOH2IESdCz3CMAKqJDU2KIXxfJTzMjEzDJ UJOZggTW0HxYXqFLM7mQ3iQRytUDMdUVXzU8lYKoMevMhxZO13fJsoiqUrsOKiQTa+Oh1XBK6zz0RhBT j9hlQmTNalMXL9UApnILIwPTSuYGQqODW9XVR4CHIO OmClGNAfNFJrWWbrZRHqWAQllw4WQXDoYXPaEMA8JPIiCBQxYYFnDJoeEGMaQCA1TxJzJMFlCPPmSD8A IsLcSOGsSKVjSVfgGKHfIIWhvg7OYUEtETAsWWX9UXCuNXAaZKYuYPowQUVdHSJ6QFoqMOGcPHLaJD8R SmHaYTPtQWh0HVYmMIQlPEEqgo0ZOWEkJOTtDez9VG IwTHJaUSCvWGpjZMHjRLUtYCV1IKMnSQGoZH7OCwOqJUEdFDSwTsImGYGfJMNavs5UAIKuECUnTpbsWf PsFHYiIZLaCPbdAOZpJHBtJMY3FLPwPUQhKT1QYqRfOILwBNSdYZLhZUApSVXnml1VHVYfLRNxYJH8Fm PuCCEjNHTpIPqiDUVjNHN0TVV3BICjLZFcTU7NAoYm STHoEQB5YSSoTIQjWCRjee5OWYJeZWLvWrinLgMsCNZoPJTeVOijZKXlLUQ7BRq0OZLmIWEyTZ2URlAc IUWdCSjqNYthSIIaWIGjfi4MNDAlMIAuBSL2XaIzRHQzADHkGVeoRQByACQ8CeB9NDFyKZNiQU9WQaVo BPXfIWc8JfwaYIQpPORekh5UPKVjPIWzHGKyPTGeNP VaESKoUOrgPRAcXFAoUKo9UXRyNOYvPX7DYqToNIAwVlF9EERjQCOoFEMyxa7LUUKrFJZxPKb3PMEpRJ StZMYaCJabXJMjEZZeJzXzYFYiGWRtFW1DUaDwIANjHoR1ZtvnLFPmKPPqem1OECXgFMGnIcq3GdVjJR XtJLViQAbqHVBtGVHjRYS9RRVaSNSlLH9ZLjHeIVTb OjGxRbIzXAOuAXBsjz3IOFDtPONtTLPyAxIjOHYhQBIiTZrpJXNhEMY7Ieq0ZHVoSOUrWF8KYzBpCERo IfJ2CzCaIKCpLKIimn3SXNEsTWAmTEMeOMJfGBZaPUWkCKncQFOyBWF1GSq5PEPgYEDwZK9GXyPwKZJy PzJ0UUYrKOMvMTHjzv5CZPJfDQMuJdF8GNYiHDYkWF HgFBi7qxUhiGOeBWg8DS7BS1NyjrTfIbfEMo8Bf539DNC2KTHeZc1AE4xmDy9zJRCzVJQNMw1BTQy3Sk CvYIN5MYJ9GoAbPuO1YdV4GrnuL0KgZyQuCuZ4OKK+JZdhIjM1YrYmEThwABCvJYU8NIdrGiY8HwNaBp KiAHSmBH6wHPFQWj4+IOfoxPUzcNlfZDREJzD5LIG8KTorUSWQNd7F ID Date Data Source [id number] 11/14/2020 05:33:49 PM EDT [facility] Name Value Range Interpretation Code Description Data Lou rce(s) Supporting Document(s) Albumin [Mass/volume] in Serum or Plasma by Bromocresol green (BCG) dye binding method 3.2 g/dL 3.5-5.[address] [facility] Bil[facility].total [Mass/volume] in Serum or Plasma 2.1 mg/dL <1.2 H [facility] Calcium [Mass/volume] in Serum or Plasma 7.9 mg/dL 8.6-10.0 L [facility] Chloride [Moles/volume] in Serum or Plasma 100 mmol/L 98-107 [facility] Creatinine [Mass/volume] in Serum or Plasma 0.64 mg/dL 0.70-1.20 L [facility] Glucose [Mass/volume] in Serum or Plasma 94 mg/dL 70-140 [facility] Alkaline phosphatase [Enzymatic activity/volume] in Serum or Plasma 123 U/L 40-129 [facility] Potassium [Moles/volume] in Serum or Plasma 3.7 mmol/L 3.4-5.1 [facility] Protein [Mass/volume] in Serum or Plasma 5.8 g/dL 6.4-8.3 L [facility] Sodium [Moles/volume] in Serum or Plasma 130 mmol/L 136-145 L [facility] Aspartate aminotransferase [Enzymatic activity/volume] in Serum or Plasma 325 U/L <40 H [facility] Urea nitrogen [Mass/volume] in Serum or Plasma 13 mg/dL 6-20 [facility] Osmolality of Serum or Plasma by calculation 269 mosm/kg 275-300 L [facility] Creatinine/Urea nitrogen [Mass Ratio] in Serum or Plasma 21 [facility] Bicarbonate [Moles/volume] in Serum 21 mmol/L 22-29 L [facility] Alanine aminotransferase [Enzymatic activity/volume] in Seru m or Plasma 127 U/L <41 H [facility] Anion gap 3 in Serum or Plasma 9 mmol/L 8-15 [facility] Glomerular filtration rate/1.73 sq M pre dicted among non-blacks [Volume Rate/Area] in Serum or Plasma by Creatinine-based formula (MDRD) >6 0 [facility] Glomerular filtration rate/1.73 sq M pre dicted among blacks [Volume Rate/Area] in Serum or Plasma by Creatinine-based formula (MDRD) >60 [facility] ID Date Data Source [id number] 11/14/2020 05:33:49 PM [facility] Name Value Range Interpretation Code Description Data Lou rce(s) Supporting Document(s) Magnesium [Mass/volume] in Serum or Plasma 2.5 mg/dL 1.6-2.6 [facility] ID Date Data Source [id number] 11/14/2020 05:33:49 PM [facility] Value Range Interpretation Code Description Data Lou rce(s) Supporting Document(s) Phosphate [Mass/volume] in Serum or Plasma 1.3 mg/dL 2.5-4.5 [facility] ID Date Data Source [id number] 11/14/2020 06:06:06 PM [facility] Value Range Interpretation Code Description Data Lou rce(s) Supporting Document(s) Leukocytes [#/volume] in Blood by Automated count 7.8 10*3/uL 4-10 [facility] Erythrocytes [#/volume] in Blood by Automated count 3.15 10*6/uL 4.6- 6.1 [facility] Hemoglobin [Mass/volume] in Blood 8.3 g/dL 13.5-18 L [facility] Hematocrit [Volume Fraction] of Blood by Automated count 25.4 % 4 1-53 [facility] Erythrocyte mean corpuscular volume [Entitic volume] by Auto mated count 80.6 fL 80-96 [facility] Erythrocyte mean corpuscular hemoglobin [Entitic mass] by Automated count 26.4 pg 27-33 L [facility] Erythrocyte mean corpuscular hemoglobin concentration [Mass/volume] by Automated count 32.8 g/dL 32.0-[facility] E[facility]throcyte distribution width [Ratio] by Automated count 18.5 % 11.5-14.5 H [facility] Platelets [#/volume] in Blood by Automated count 116 10*3/uL 150-400 L [facility] Confirmed Differential cell count method - Blood [facility] Neutrophils/100 leukocytes in Blood by Automated count 76 % [facility] Lymphocytes/100 leukocytes in Blood by Automated count 8 % [facility] Monocytes/100 leukocytes in Blood by Automated count 13 % [facility] Eosinophils/100 leukocytes in Blood by Automated count 2 % [facility] Basophils/100 leukocytes in Blood by Automated count 1 % [facility] Neutrophils [#/volume] in Blood by Automated count 5.95 10*3/uL 1.8-7 .0 [facility] Lymphocytes [#/volume] in Blood by Automated count 0.63 10*3/uL 1.2-4 .0 L [facility] Monocytes [#/volume] in Blood by Automated count 1.05 10*3/uL 0-0.8 H [facility] Eosinophils [#/volume] in Blood by Automated count 0.19 10*3/uL 0-0.5 [facility] Basophils [#/volume] in Blood by Automated count 0.04 10*3/uL 0-0.2 [facility] Nucleated erythrocytes/100 leukocytes [Ratio] in Blood by Automated count 0 /100{WBCs} 0-0 [facility] ID Date Data Source [id number] [facility] Value Range Interpretation Code Description Data Lou rce(s) Supporting Document(s) Ammonia [Moles/volume] in Plasma 86 umol/L 16-60 H [facility] ID Date Data Source [id number] 11/14/2020 08:19:36 AM [facility] Name Value Range Interpretation Code Description Data Lou rce(s) Supporting Document(s) Bicarbonate [Moles/volume] in Serum 21 mmol/L 22-29 L [facility] Chloride [Moles/volume] in Serum or Plasma 99 mmol/L 98-107 [facility] Confirmed Creatinine [Mass/volume] in Serum or Plasma 0.65 mg/dL 0.70-1.20 L [facility] Glucose [Mass/volume] in Serum or Plasma 97 mg/dL 70-140 [facility] Potassium [Moles/volume] in Serum or Plasma 3.0 mmol/L 3.4-5.1 [facility] Confirmed Sodium [Moles/volume] in Serum or Plasma 130 mmol/L 136-145 L [facility] Confirmed Urea nitrogen [Mass/volume] in Serum or Plasma 15 mg/dL 6-20 [facility] Anion gap 3 in Serum or Plasma 11 mmol/L 8-15 [facility] Confirmed Osmolality of Serum or Plasma by calculation 271 mosm/kg 275-300 L [facility] Confirmed Creatinine/Urea nitrogen [Mass Ratio] in Serum or Plasma 22 [facility] Calcium [Mass/volume] in Serum or Plasma 7.8 mg/dL 8.6-10.0 [facility] Glomerular filtration rate/1.73 sq M pre dicted among non-blacks [Volume Rate/Area] in Serum or Plasma by Creatinine-based formula (MDRD) >6 0 [facility] Glomerular filtration rate/1.73 sq M pre dicted among blacks [Volume Rate/Area] in Serum or Plasma by Creatinine-based formula (MDRD) >60 [facility] ID Date Data Source [id number] 11/14/2020 08:31:17 AM EDT [facility] Name Value Range Interpretation Code Description Data Lou rce(s) Supporting Document(s) Leukocytes [#/volume] in Blood by Automated count 6.9 10*3/uL 4-10 [facility] Erythrocytes [#/volume] in Blood by Automated count 2.97 10*6/uL 4.6- 6.1 [facility] Hemoglobin [Mass/volume] in Blood 7.9 g/dL 13.5-18 [facility] Hematocrit [Volume Fraction] of Blood by Automated count 23.7 % 4 1-53 [facility] Erythrocyte mean corpuscular volume [Entitic volume] by Auto mated count 79.8 fL 80-96 L [facility] Erythrocyte mean corpuscular hemoglobin [Entitic mass] by Automated count 26.5 pg 27-33 [facility] Erythrocyte mean corpuscular hemoglobin concentration [Mass/volume] by Automated count 33.2 g/dL 32.0-[facility] E[facility]throcyte distribution width [Ratio] by Automated count 18.9 % 11.5-14.5 H [facility] Platelets [#/volume] in Blood by Automated count 99 10*3/uL 150-400 L [facility] Confirmed Differential cell count method - Blood [facility] Neutrophils/100 leukocytes in Blood by Automated count 77 % [facility] Lymphocytes/100 leukocytes in Blood by Automated count 7 % [facility] Monocytes/100 leukocytes in Blood by Automated count 12 % [facility] Eosinophils/100 leukocytes in Blood by Automated count 3 % [facility] Basophils/100 leukocytes in Blood by Automated count 1 % [facility] Neutrophils [#/volume] in Blood by Automated count 5.45 10*3/uL 1.8-7 .0 [facility] Lymphocytes [#/volume] in Blood by Automated count 0.47 10*3/uL 1.2-4 .0 L [facility] Monocytes [#/volume] in Blood by Automated count 0.80 10*3/uL 0-0.8 [facility] Eosinophils [#/volume] in Blood by Automated count 0.18 10*3/uL 0-0.5 [facility] Basophils [#/volume] in Blood by Automated count 0.03 10*3/uL 0-0.2 [facility] Nucleated erythrocytes/100 leukocytes [Ratio] in Blood by Automated count 0 /100{WBCs} 0-0 [facility] ID Date Data Source [id number] 11/14/2020 11:09:27 AM [facility] Value Range Interpretation Code Description Data Lou rce(s) Supporting Document(s) Magnesium [Mass/volume] in Serum or Plasma 2.6 mg/dL 1.6-2.6 [facility] ID Date Data Source [id number] 11/14/2020 11:09:27 AM [facility] Value Range Interpretation Code Description Data Lou rce(s) Supporting Document(s) Phosphate [Mass/volume] in Serum or Plasma 1.6 mg/dL 2.5-4.5 [facility] ID Date Data Source [id number] 11/13/2020 11:52:58 PM [facility] Value Range Interpretation Code Description Data Lou rce(s) Supporting Document(s) ABO and Rh group [Type] in Blood [facility] Blood bank comment [facility] ID Date Data Source [id number] 11/13/2020 09:59:28 PM EDT [facility] Name Value Range Interpretation Code Description Data Lou rce(s) Supporting Document(s) Sodium [Moles/volume] in Blood 132 mmol/L 136-145 L [facility] Potassium [Moles/volume] in Blood 3.1 mmol/L 3.4-5.1 [facility] Chloride [Moles/volume] in Blood 97 mmol/L 98-107 [facility] Carbon dioxide, total [Moles/volume] in Blood 21 mmol/L 22-29 [facility] Calcium.ionized [Moles/volume] in Blood 1.19 mmol/L 1.13-1.32 [facility] Glucose [Mass/volume] in Blood 115 mg/dL 70-140 [facility] Urea nitrogen [Mass/volume] in Blood 15 mg/dL 6-20 [facility] Creatinine [Mass/volume] in Blood 0.7 mg/dL 0.70-1.20 [facility] Hematocrit [Volume Fraction] of Blood 22 % 41-53 [facility] Hemoglobin [Mass/volume] in Blood by calculation 7.5 g/dL 13.5-18.0 [facility] ID Date Data Source [id number] 11/13/2020 09:59:57 PM EDT [facility] Name Value Range Interpretation Code Description Data Lou rce(s) Supporting Document(s) Leukocytes [#/volume] in Blood by Automated count 7.0 10*3/uL 4-10 [facility] Erythrocytes [#/volume] in Blood by Automated count 2.58 10*6/uL 4.6- 6.1 [facility] Hemoglobin [Mass/volume] in Blood 7.0 g/dL 13.5-18 [facility] Hematocrit [Volume Fraction] of Blood by Automated count 20.6 % 4 1-53 [facility] Called to and read back by Zeny cintron [employer] [address] [place] 1475 Erythrocyte mean corpuscular volume [Entitic volume] by Auto mated count 79.5 fL 80-96 L [facility] Erythrocyte mean corpuscular hemoglobin [Entitic mass] by Automated count 27.1 pg 27-33 [facility] Erythrocyte mean corpuscular hemoglobin concentration [Mass/volume] by Automated count 34.0 g/dL 32.0-36.[facility] Erythrocyte distribution width [Ratio] by Automated count 19.9 % 11.5-14.5 H [facility] Platelets [#/volume] in Blood by Automated count 102 10*3/uL 150-400 L [facility] Differential cell count method - Blood [facility] Neutrophils/100 leukocytes in Blood by Automated count 78 % [facility] Lymphocytes/100 leukocytes in Blood by Automated count 7 % [facility] Monocytes/100 leukocytes in Blood by Automated count 13 % [facility] Eosinophils/100 leukocytes in Blood by Automated count 1 % [facility] Basophils/100 leukocytes in Blood by Automated count 1 % [facility] Neutrophils [#/volume] in Blood by Automated count 5.50 10*3/uL 1.8-7 .0 [facility] Lymphocytes [#/volume] in Blood by Automated count 0.47 10*3/uL 1.2-4 .0 L [facility] Monocytes [#/volume] in Blood by Automated count 0.89 10*3/uL 0-0.8 H [facility] Eosinophils [#/volume] in Blood by Automated count 0.09 10*3/uL 0-0.5 [facility] Basophils [#/volume] in Blood by Automated count 0.04 10*3/uL 0-0.2 [facility] Nucleated erythrocytes/100 leukocytes [Ratio] in Blood by Automated count 0 /100{WBCs} 0-0 [facility] ID Date Data Source [id number] 11/13/2020 10:08:20 PM [facility] Value Range Interpretation Code Description Data Lou rce(s) Supporting Document(s) Prothrombin time (PT) 16.6 s 12.5-14.9 H [facility] INR in Platelet poor plasma by Coagulation assay 1.32 [facility] Routine intensity oral anticoagulation I NR is typically 2.0-3.0. Target INR must be clinically individualized. ID Date Data Source [id number] 11/13/2020 10:17:51 PM [facility] Value Range Interpretation Code Description Data Lou rce(s) Supporting Document(s) Lipase [Enzymatic activity/volume] in Serum or Plasma 44 U/L 13-6 0 [facility] ID Date Data Source [id number] 11/13/2020 10:17:51 PM [facility] Value Range Interpretation Code Description Data Lou rce(s) Supporting Document(s) Albumin [Mass/volume] in Serum or Plasma by Bromocresol green (BCG) dye binding method 3.0 g/dL 3.5-5.[address] [facility] Bilirubin.total [Mass/volume] in Serum or Plasma 1.7 mg/dL <1.2 H [facility] Calcium [Mass/volume] in Serum or Plasma 7.8 mg/dL 8.6-10.0 L [facility] Chloride [Moles/volume] in Serum or Plasma 97 mmol/L 98-107 L [facility] Creatinine [Mass/volume] in Serum or Plasma 0.66 mg/dL 0.70-1.20 L [facility] Glucose [Mass/volume] in Serum or Plasma 115 mg/dL 70-140 [facility] Alkaline phosphatase [Enzymatic activity/volume] in Serum or Plasma 127 U/L 40-129 [facility] Potassium [Moles/volume] in Serum or Plasma 3.1 mmol/L 3.4-5.1 L [facility] Protein [Mass/volume] in Serum or Plasma 5.5 g/dL 6.4-8.3 L [facility] Sodium [Moles/volume] in Serum or Plasma 128 mmol/L 136-145 [facility] Aspartate aminotransferase [Enzymatic activity/volume] in Serum or Plasma 189 U/L <40 H [facility] Urea nitrogen [Mass/volume] in Serum or Plasma 16 mg/dL 6-20 [facility] Osmolality of Serum or Plasma by calculation 269 mosm/kg 275-300 [facility] Creatinine/Urea nitrogen [Mass Ratio] in Serum or Plasma 24 [facility] Bicarbonate [Moles/volume] in Serum 22 mmol/L 22-29 [facility] Alanine aminotransferase [Enzymatic activity/volume] in Seru m or Plasma 74 U/L <41 H [facility] Anion gap 3 in Serum or Plasma 9 mmol/L 8-15 [facility] Glomerular filtration rate/1.73 sq M pre dicted among non-blacks [Volume Rate/Area] in Serum or Plasma by Creatinine-based formula (MDRD) >6 0 [facility] Glomerular filtration rate/1.73 sq M pre dicted among blacks [Volume Rate/Area] in Serum or Plasma by Creatinine-based formula (MDRD) >60 [facility] ID Date Data Source [id number] 11/16/2020 07:33:03 AM EDT [facility] Name Value Range Interpretation Code Description Data Lou rce(s) Supporting Document(s) ABO and Rh group [Type] in Blood [facility] Blood group antibody screen [Presence] in Serum or Plasma [facility] Performed at [facility], Raquel brody Geeta, [id number] ID Date Data Source [id number] 11/13/2020 03:31:00 PM EDT [facility] Name Value Range Interpretation Code Description Data Lou rce(s) Supporting Document(s) SARS coronavirus 2 RNA [Presence] in Res piratory specimen by TOYA with probe detection NEGATIVE [facility] This lab was ordered by [facility] a nd reported by [facility]. Procedure Social History Code Duration Value Status Description Data Source(s ) Alcohol intake 11/16/2020 12:00:00 AM EDT Current drinker of al cohol (finding) completed Current drinker of alcohol (finding) [facility] Tobacco use and exposure 11/14/2020 12:00:00 AM EDT Smokeless to bacco non-user completed Smokeless tobacco non-user [facility] Cigarette pack-years 11/14/2020 12:00:00 AM EDT UNK completed [facility] Cigarettes smoked current (pack per day) - Reported 11/15/19 12:00:00 AM EDT UNK completed [facility] Smoking 11/14/2020 12:00:00 AM EDT Smokes tobacco daily comple ashley Smokes tobacco daily [facility] Vital Signs ID Date Data Source UNK Name Value Range Interpretation Code Description Data Source(s) Body weight 2480 [oz_av] 2480 [oz_av] [facility] ([facility]) Diastolic blood pressure 78 mm[Hg] 78 mm[Hg] [facility] ([facility]) Body height 65 [in_i] 65 [in_i] [facility] ([facility]) Body mass index (BMI) [Ratio] 25.8 kg/m2 25.8 k g/m2 [facility] ([facility]) Systolic blood pressure 121 mm[Hg] 121 mm[Hg] Venkata ROBBINS ([facility]) ID Date Data Source [id number] 12/14/2020 04:10:11 PM EDT [facility] Name Value Range Interpretation Code Description Data Source(s) WEIGHT RECORDED 151.3 lb 151.3 lb [facility] Body height Measured 66 in 66 in [facility] TRANSFER FROM [facility] ID Date Data Source [id number] 12/01/2020 11:10:43 AM [facility] Name Value Range Interpretation Code Description Data Source(s) TRANSFER FROM [facility] Patient Treatment Plan of Care Planned Activity Planned Date Details Description Data Source (s) Lisinopril 5 MG Oral Tablet 12/12/2020 12:00:00 AM [facility] Thiamine 100 MG Oral Tablet 12/12/2020 12:00:00 AM [facility] Acetaminophen 325 MG Oral Tablet 12/12/2020 12:00:00 AM [facility] Acetaminophen 325 MG Oral Tablet 12/10/2020 04:46:26 PM [facility] Folic Acid 1 MG Oral Tablet 2020 12:00:00 AM [facility] Vitamin B 12 0.25 MG Oral Tablet 2020 12:00:00 AM [facility] pantoprazole 40 MG Delayed Release Oral Tablet 11/17/2020 12:00:00 AM [facility] Lisinopril 30 MG Oral Tablet [facility] duloxetine 60 MG Delayed Release Oral Capsule SUKI ([facility]) Clindamycin 300 MG Oral Capsule SUKI ([facility])
[2021-04-25] MEDS ORDERED: FERR325T19 PO (13:58)
[2021-04-25] MEDS ORDERED: THIA100T22 PO (13:58)
[2021-04-25] MEDS ORDERED: HOME MED LIST COMPLETE! XX SCH (14:00)
[2021-04-25] MEDS ORDERED: ISOVUE-370 76% 100ML VIAL As Ordered ONE (14:49)
--- NOTE | 2021-04-25 15:16 | HPEPDOC ---
General Date of Admission April 25, 2021 Date of Service: Apr 25, 2021 Chief Complaint The patient is a 40-year-old male admitted with a reason for visit of Abnormal Labs. Source: Patient History of Present Illness Mr. Morin is a 40-year-old male with alcohol use disorder and current smoker who presents with weakness and lightheadedness. Patient was recently here from [place] to April 07 for acute anemia and right neck mass. At that time his hemoglobin was 2.6 and he received a total of 5 transfusions to get up to 7.7. He was stable around 7.7. Patient had a right neck FNA which was sent out for testing. The flow cytometry did not show any evidence of non-Hodgkin's lymphoma but the sample was degenerated and may not be accurate. Patient still continues to smoke and drink alcohol. For the past week, patient had progressive weakness and lightheadedness. He started to have trouble walking and came into the ED for evaluation. He came in on 04/24/2021 and was found anemic at 5.3. He was going to be admitted but left AMA. He reports soft bowel movements, but denies any melena or hematochezia. He says his bowel movements are brown. He denies nausea or vomiting, he does have abdominal pain and tenderness. Pain is located in the epigastric region which is an achy pain. Abdominal tenderness is diffuse. His last alcoholic drink was this morning at 7 AM. Patient returned to the ED today. Repeat hemoglobin is 5.6. General surgery, Dr. Vasquez was consulted. Plan for EGD tomorrow. We will try to get records from [facility]. In November 2020, he had an EGD there which was negative for varices. Unknown if he had a colonoscopy. We will see if can obtain records. Otherwise I reached out to ENT, Dr. Hernandez about patient's neck mass. Patient has not fever or leukocytosis, but has pain with swallowing. With his smoking and alcohol history, he is at risk for malignancy. Dr. Hernandez recommended repeating CT of the neck with contrast to ensure this is not an abscess and to obtain another FNA since the previous sample degenerated. Patient will be admitted for acute anemia and right neck mass. Home Medications Scheduled Clindamycin HCl (Clindamycin HCl) 300 Mg Capsule, 300 MG PO TID Escitalopram Oxalate (Lexapro) 20 Mg Tablet, 20 MG PO DAILY, (Reported) Ferrous Sulfate (Ferrous Sulfate) 325 Mg Tablet, 325 MG PO DAILY Folic Acid (Folic Acid) 1 Mg Tablet, 1 MG PO DAILY, (Reported) Gabapentin (Gabapentin) 600 Mg Tablet, 600 MG PO BID, (Reported) Lisinopril (Lisinopril) 30 Mg Tablet, 30 MG PO DAILY, (Reported) Pantoprazole Sodium (Pantoprazole Sodium) 40 Mg Tablet.dr, 40 MG PO BID, (Reported) Sucralfate (Sucralfate) 1 Gm/10 Ml Oral.susp, 1 GM PO ACHS Thiamine Hcl (Vitamin B-1) 100 Mg Tablet, 100 MG PO BID Allergies Coded Allergies: Penicillins (Verified Allergy, Unknown, 11/03/18) amoxicillin (Verified Allergy, Unknown, 11/03/18) clavulanic acid (Verified Allergy, Unknown, 11/03/18) diphenhydramine (Verified Allergy, Unknown, 11/03/18) ibuprofen (Verified Allergy, Unknown, 11/03/18) naproxen (Verified Allergy, Unknown, 11/03/18) Past Medical History Medical History 1. Alcoholic gastritis with hemorrhage 2. Alcohol use disorder 3. Hypertension 4. Right neck mass Surgical History 1. EGD in [facility] November 2020. No varices per patient Family History Father: Patient does not know father's past medical history Mother: History of heart disease Social History * Smoker: current smoker (1 pack/day since he was 15 years old (35 years smoking)) Alcohol: heavy Drugs: denies A-FIB/CHADSVASC A-FIB History Current/History of A-Fib/PAF?: No Review of Systems Constitutional: Denies: Chills, Fever Eyes: Reports: Other (blurry vision for over a month) ENT: Reports: Other Symptoms (right sided pain when swalloing) Skin: Denies: Rash Pulmonary: Reports: Dyspnea (with exertion); Denies: Cough Cardiovascular: Reports: Chest Pain (right upper chest, pain occurs when swallowing), Lt Headedness Gastrointestinal: Reports: Diarrhea (Soft bm, brown); Denies: Nausea, Abdominal Pain, Melena, Hematochezia Genitourinary: Denies: Dysuria Hematologic: Denies: Bruising Neurological: Reports: Numbness Psych: Denies: Anxiety, Depression Physical Examination General Exam: Positive: Alert, Cooperative Eye Exam: Positive: EOMI; Negative: Sclera icteric ENT Exam: Positive: Atraumatic Neck Exam: Positive: Supple Chest Exam: Positive: Clear to auscultation; Negative: Rales, Rhonchi, Wheezing Heart Exam: Positive: Rate Normal, Regular Rhythm Abdomen Exam: Positive: Normal bowel sounds, Soft; Negative: Tenderness Extremity Exam: Negative: Edema Neuro Exam: Positive: Normal Speech, Cranial Nerves 3-12 NL Psych Exam: Positive: Mental status NL, Mood NL Vital Signs Vital Signs Date Time Temp Pulse Resp B/P (MAP) Pulse Ox O2 Delivery O2 Flow Rate FiO2 04/25/21 11:10 97.8 97 18 135/83 (100) 100 Room Air Laboratory Data Labs 24H Laboratory Tests 2 04/25/21 11:39: Nucleated Red Blood Cells % (auto) 0.5H, Prothrombin Time 16.1H, Prothromb Time International Ratio 1.25, Anion Gap 8, Glomerular Filtration Rate > 60.0, Calcium Level 8.5, Total Bilirubin 0.7, Direct Bilirubin 0.3H, Aspartate Amino Transf (AST/SGOT) 44H, Alanine Aminotransferase (ALT/SGPT) 29, Alkaline Phosphatase 150H, Total Protein 6.9, Albumin 3.0L, Albumin/Globulin Ratio 0.8 04/25/21 11:51: Coronavirus (COVID-19)(PCR) NEGATIVE, Influenza Type A (RT-PCR) NEGATIVE, Influenza Type B (RT-PCR) NEGATIVE, Respiratory Syncytial Virus (PCR) NEGATIVE CBC/BMP Laboratory Tests 04/25/21 11:39 Assessment/Plan Mr. Morin is a 40-year-old male with alcohol use disorder and current smoker who presents with weakness and lightheadedness. Patient was found to be acutely anemia. Will transfuse 2u of blood. General surgery consulted for scope. Concern for ulcers given his alcohol history and abdominal tenderness. Otherwise, patient has right neck mass. Concern for malignancy given smoking and alcohol history. Spoke with ENT, Dr. Hernandez. Recommended CT neck with contrast and FNA. Plan / VTE VTE Prophylaxis Ordered?: Yes Plan Plan 1. Acute blood loss anemia Labs from 04/06/2021 do suggest iron deficiency anemia Hemoglobin on admission was 5.6 Patient being transfused with 2 units of blood General surgery consulted for scope Anticipate scope on 04/26/2021 IV Protonix twice daily Clear liquid diet. N.p.o. after midnight for procedure 2. Right neck mass Discussed with ENT, Dr. Hernandez Recommend repeat CT neck with contrast FNA to be scheduled for Sunday. We do not have staff tomorrow for FNA 3. Alcohol use disorder Patient had admission in 2017 for delirium tremens from alcohol withdrawal Last alcoholic drink was 04/25/2021 at 7 AM Patient received folic acid, thiamine, and multivitamin orally today This evening, will start banana bag as he will be n.p.o. after midnight for scope When patient can be back on an oral diet, can restart thiamine, multivitamin, a nd folic acid Serax taper ordered with holding parameters As needed IV lorazepam for CIWA was greater than 8 4. Nicotine use disorder Smoking cessation counseling ordered 5. DVT prophylaxis No chemical prophylaxis due to concern for GI bleed SCDs and teds Disposition: Pending hemoglobin stability and scopes tomorrow JESÚS SOLOMON DO Apr 25, 2021 15:00
[2021-04-25] MEDS: ESCITALOPRAM OXALATE 10 MG TAB (LEXAPRO) PO SCH (15:22)
[2021-04-25] MEDS: OXAZEPAM 15 MG CAP PO SCH ×2 (17:25→23:31)
[2021-04-25] MEDS ORDERED: PANTOPRAZOLE 40MG TAB (PROTONIX) PO SCH (21:00)
[2021-04-25 21:13] LABS: HEMATOCRIT 25.2 % (42.0-52.0); HEMOGLOBIN 7.4 g/dl (13.5-17.5); MEAN CORPUSCULAR HEMOGLOBIN 24.3 pg (27.0-33.0); MEAN CORPUSCULAR HGB CONC 29.4 g/dl (32.0-36.5); MEAN CORPUSCULAR VOLUME 82.6 fl (80.0-96.0); PLATELET COUNT, AUTOMATED 146 10^3/uL (150-450); RED BLOOD COUNT 3.05 10^6/uL (4.30-6.10); WHITE BLOOD COUNT 3.3 10^3/uL (4.0-10.0)
[2021-04-25] MEDS: GABAPENTIN 300 MG CAP PO SCH (22:19)
[2021-04-25] MEDS: PANTOPRAZOLE 40MG VIAL (C9113 PER 1) IV SCH (22:19)
[2021-04-25] MEDS ORDERED: MULTIVITAMIN -ADULT INJECTION 10 ML, THIAMINE INJection 100 MG, FOLIC ACID 1 MG in NS 1... IV ONE (23:00)
[2021-04-26] VITALS (10 sets, daily range): BP systolic 129–156; BP diastolic 64–91
--- NOTE | 2021-04-26 04:27 | REP ---
INDICATION: abdominal tenderness, Acute anemia, heavy alcoholic. COMPARISON: 04/05/2021 TECHNIQUE: Axial contrast-enhanced images from the lung bases to the pubic symphysis using 100 cc Isovue 370 intravenous contrast material. Coronal and sagittal reformations obtained. This CT examination was performed using the following dose reduction techniques: Automated exposure control, adjustment of mA and/or kv according to the patient's size, and the use of iterative reconstruction technique. FINDINGS: Liver includes stable 2.5 cm hypodense lesion likely representing hemangioma given findings on recent ultrasound dated 04/05/2021. Nodular hepatic contour is also identified and suggests underlying cirrhosis. Few midline upper abdominal lymph nodes surround the celiac axis and within gastrohepatic ligament are nonspecific and may be related to underlying hepatocellular disease/cirrhosis. Spleen is mildly enlarged. Pancreas, gallbladder, bilateral adrenal glands and kidneys are normal. The enteric system including stomach, small, and large bowel appears normal. No evidence for obstruction or acute inflammatory process. Normal terminal ileum and appendix are identified in the right lower quadrant. Sigmoid diverticulosis noted without acute diverticulitis. Pelvis demonstrates normal bladder and age-appropriate prostate/seminal vesicles. No ascites. No free air. No retroperitoneal adenopathy. Abdominal aorta and vasculature appear normal. Musculoskeletal structures are intact and without acute osseous abnormality. IMPRESSION: 1. Findings consistent with cirrhosis and suspected hepatic hemangioma. 2. Sigmoid diverticulosis without obvious acute diverticulitis. <Electronically signed by Sher Kurtz > 04/26/21 0424
[2021-04-26] MEDS: OXAZEPAM 15 MG CAP PO SCH ×3 (05:33→17:09)
[2021-04-26 05:52] LABS: HEMATOCRIT 24.5 % (42.0-52.0); HEMOGLOBIN 7.1 g/dl (13.5-17.5); MEAN CORPUSCULAR HEMOGLOBIN 23.6 pg (27.0-33.0); MEAN CORPUSCULAR VOLUME 81.4 fl (80.0-96.0); PLATELET COUNT, AUTOMATED 132 10^3/uL (150-450); RED BLOOD COUNT 3.01 10^6/uL (4.30-6.10); WHITE BLOOD COUNT 3.6 10^3/uL (4.0-10.0)
[2021-04-26 06:13] LABS: BLOOD UREA NITROGEN 4 MG/DL (7-18); CALCIUM LEVEL 7.9 MG/DL (8.5-10.1); CARBON DIOXIDE LEVEL 27 MEQ/L (21-32); CHLORIDE LEVEL 108 MEQ/L (98-107); CREATININE FOR GFR 0.51 MG/DL (0.70-1.30); GLOMERULAR FILTRATION RATE > 60.0 (>60); GLUCOSE, FASTING 78 MG/DL (70-100); POTASSIUM SERUM 3.9 MEQ/L (3.5-5.1); SODIUM LEVEL 142 MEQ/L (136-145)
[2021-04-26] MEDS ORDERED: LIDOCAINE 2% 100MG/5ML SDV (FOR ANES.) As Ordered ONE (09:20)
[2021-04-26] MEDS ORDERED: propofoL 200 MG/20 ML VIAL As Ordered ONE (09:21)
[2021-04-26] MEDS ORDERED: fentaNYL 100 MCG/2 ML INJECTION (J3010) As Ordered ONE (09:21)
[2021-04-26] MEDS: PANTOPRAZOLE 40MG VIAL (C9113 PER 1) IV SCH ×2 (09:32→20:44)
--- NOTE | 2021-04-26 11:02 | ROOR ---
Patient Name: Reynaldo Morin Procedure Date: 04/26/2021 10:46 AM Date of : 1980 Age: 40 Room: OP02 Gender: Male Note Status: Finalized Procedure: Upper GI endoscopy Indications: Acute post hemorrhagic anemia Providers: Marc Vasquez MD Referring MD: 2. Inpatient 2. Inpatient, Family Practice/Adult section [facility] Requesting Provider: Medicines: Monitored Anesthesia Care Complications: No immediate complications. Procedure: Pre-Anesthesia Assessment: - Prior to the procedure, a History and Physical was performed, and patient medications and allergies were reviewed. The patient is competent. The risks and benefits of the procedure and the sedation options and risks were discussed with the patient. All questions were answered and informed consent was obtained. Patient identification and proposed procedure were verified by the physician, the nurse and the anesthesiologist in the endoscopy suite. Mental Status Examination: alert and oriented. Airway Examination: normal oropharyngeal airway and neck mobility. Respiratory Examination: clear to auscultation. CV Examination: normal. Prophylactic Antibiotics: The patient does not require prophylactic antibiotics. Prior Anticoagulants: The patient has taken no previous anticoagulant or antiplatelet agents. ASA Grade Assessment: III - A patient with severe systemic disease. After reviewing the risks and benefits, the patient was deemed in satisfactory condition to undergo the procedure. The anesthesia plan was to use monitored anesthesia care (MAC). Immediately prior to administration of medications, the patient was re-assessed for adequacy to receive sedatives. The heart rate, respiratory rate, oxygen saturations, blood pressure, adequacy of pulmonary ventilation, and response to care were monitored throughout the procedure. The physical status of the patient was re-assessed after the procedure. The Endoscope was introduced through the mouth, and advanced to the second part of duodenum. The upper GI endoscopy was accomplished without difficulty. The patient tolerated the procedure fairly well. Findings: There is no endoscopic evidence of bleeding, areas of erosion, esophagitis, inflammation or varices in the entire esophagus. Patchy mild inflammation no signs of bleeding/recent bleed characterized by erythema was found in the cardia and in the gastric antrum. Estimated blood loss: none. The first portion of the duodenum and second portion of the duodenum were normal. Estimated blood loss: none. Impression: - Chronic gastritis no signs of bleeding/recent bleed. - Normal first portion of the duodenum and second portion of the duodenum. - No specimens collected. Recommendation: - [facility]. - Use Protonix (pantoprazole) 40 mg PO daily indefinitely. Procedure Code(s): --- Professional --- 02131, Esophagogastroduodenoscopy, flexible, transoral; diagnostic, including collection of specimen(s) by brushing or washing, when performed (separate procedure) Diagnosis Code(s): --- Professional --- D62, Acute posthemorrhagic anemia CPT copyright 2019 [employer]. All rights reserved. The codes documented in this report are preliminary and upon urban redevelopment specialist review may be revised to meet current compliance requirements. Marc Vasquez MD Marc Vasquez MD 04/26/2021 11:01:56 AM Electronically signed by Marc Vasquez MD Number of Addenda: 0 Note Initiated On: 04/26/2021 10:46 AM Estimated Blood Loss: Estimated blood loss: none.
[2021-04-26] MEDS: GABAPENTIN 300 MG CAP PO SCH ×2 (11:45→20:43)
[2021-04-26] MEDS: ESCITALOPRAM OXALATE 10 MG TAB (LEXAPRO) PO SCH (11:45)
--- NOTE | 2021-04-26 15:43 | IPNPDOC ---
Text Note Date of Service The patient was seen on 04/26/21. NOTE SUBJECTIVE: -No acute events overnight OBJECTIVE: Vitals: see below General: Alert, Cooperative, NAD Eyes: EOMI, anicteric ENT: Atraumatic Neck: Has R neck fullness, nontender, no JVD Chest: Clear to auscultation, no rales, rhonchi or wheezing Heart: Rate Normal, Regular Rhythm, no m/r/g Abdomen: Normal bowel sounds, NTND Extremities: No edema, WWP Neuro: Normal Speech, Cranial Nerves 3-12 NL Psych: Mental status NL, Mood NL Laboratory Data: WBC 3.6 Hgb 7.1 Platelets 132 Na 142 K 3.9 Cr 0.51 Assessment: 40-year-old M with alcohol use disorder and current smoker who presented with weakness and lightheadedness and admitted for acute on chronic anemia s/p 2u of blood pending EGD this AM. Of note, the patient has a right neck mass with concern for malignancy given smoking and alcohol history. Dr. Brunner spoke with ENT, Dr. Hernandez who recommended CT neck with contrast and repeat FNA. Plan: 1. Acute on chronic anemia Labs from 04/06/2021 suggest iron deficiency anemia Hemoglobin on admission was 5.6, s/p 2 units of blood, now 7.1 Pending EGD this AM IV Protonix twice daily NPO for EGD, Not sure if there was a presenting history suggestive of active GIB given the history of alcohol 2. Right neck mass Discussed with ENT, Dr. Hernandez Recommend repeat CT neck with contrast, read pending FNA scheduled for 04/27 3. Alcohol use disorder Patient had admission in 2017 for delirium tremens from alcohol withdrawal Last alcoholic drink was 04/25/2021 at 7 AM folic acid, thiamine, and multivitamin today Serax taper ordered with holding parameters As needed IV lorazepam for high CIWA scores per protocol 4. Nicotine use disorder Smoking cessation counseling ordered and provided 5. DVT prophylaxis No chemical prophylaxis due to concern for GI bleed SCDs and teds VS,Fishbone, I+O VS, Fishbone, I+O Laboratory Tests 04/25/21 11:39 04/25/21 20:50 04/26/21 05:34 Vital Signs Date Time Temp Pulse Resp B/P (MAP) Pulse Ox O2 Delivery O2 Flow Rate FiO2 04/26/21 09:40 99.4 88 19 149/91 (110) 96 Room Air I&O- Last 24 Hours up to 6 AM 04/26/21 05:59 Intake Total 1697 ml Output Total 0 ml Balance 1697 ml ALCIRA MCRAE MD Apr 26, 2021 09:56
[2021-04-27] VITALS (7 sets, daily range): BP systolic 129–162; BP diastolic 74–86
[2021-04-27] MEDS: OXAZEPAM 15 MG CAP PO SCH (01:08)
[2021-04-27 05:26] LABS: HEMATOCRIT 26.9 % (42.0-52.0); HEMOGLOBIN 7.8 g/dl (13.5-17.5); MEAN CORPUSCULAR HEMOGLOBIN 24.1 pg (27.0-33.0); PLATELET COUNT, AUTOMATED 120 10^3/uL (150-450); RED BLOOD COUNT 3.24 10^6/uL (4.30-6.10); WHITE BLOOD COUNT 3.7 10^3/uL (4.0-10.0)
[2021-04-27 05:45] LABS: BLOOD UREA NITROGEN 7 MG/DL (7-18); CALCIUM LEVEL 7.7 MG/DL (8.5-10.1); CARBON DIOXIDE LEVEL 26 MEQ/L (21-32); CHLORIDE LEVEL 104 MEQ/L (98-107); CREATININE FOR GFR 0.69 MG/DL (0.70-1.30); GLOMERULAR FILTRATION RATE > 60.0 (>60); GLUCOSE, FASTING 136 MG/DL (70-100); POTASSIUM SERUM 3.3 MEQ/L (3.5-5.1); SODIUM LEVEL 139 MEQ/L (136-145)
[2021-04-27] MEDS: PANTOPRAZOLE 40MG VIAL (C9113 PER 1) IV SCH ×2 (08:44→21:59)
[2021-04-27] MEDS: ESCITALOPRAM OXALATE 10 MG TAB (LEXAPRO) PO SCH (08:44)
[2021-04-27] MEDS: GABAPENTIN 300 MG CAP PO SCH ×2 (08:44→21:59)
--- NOTE | 2021-04-27 10:12 | ECGEPIP ---
[facility] - ED Test Date: 2021-04-25 Pat Name: ADELAIDA CORNEJO Department: Room: [place] [address] Gender: Male Strategic Planning Specialist: ZITA : 1980 Requested By: Guicho Schofield Order Number: [id number] Reading MD: Ej Heredia Measurements Intervals [place] Rate: 84 P: 65 MA: 176 QRS: 71 QRSD: 88 T: 22 QT: 372 QTc: 439 Interpretive Statements Normal sinus rhythm QTc normalized from tracing done 04-04-21 Electronically Signed on 04-27-2021 10:11:53 EST by Ej Heredia
[2021-04-27] MEDS ORDERED: LIDOCAINE 1% MDV 20ML VIAL As Ordered ONE (13:22)
--- NOTE | 2021-04-27 14:00 | IPNPDOC ---
Text Note Date of Service The patient was seen on 04/27/21. NOTE SUBJECTIVE: -No acute events overnight OBJECTIVE: Vitals: see below General: Alert, Cooperative, NAD Eyes: EOMI, anicteric ENT: Atraumatic Neck: Has R neck fullness, nontender, no JVD Chest: Clear to auscultation, no rales, rhonchi or wheezing Heart: Rate Normal, Regular Rhythm, no m/r/g Abdomen: Normal bowel sounds, NTND Extremities: No edema, WWP Neuro: Normal Speech, Cranial Nerves 3-12 NL Psych: Mental status NL, Mood NL Laboratory Data: WBC 3.7 Hgb 7.8 Platelets 120 Na 139 K 3.3 (repleted) Cr 0.69 04/26 EGD: Findings: There is no endoscopic evidence of bleeding, areas of erosion, esophagitis, inflammation or varices in the entire esophagus. Patchy mild inflammation no signs of bleeding/recent bleed characterized by erythema was found in the cardia and in the gastric antrum. Estimated blood loss: none. The first portion of the duodenum and second portion of the duodenum were normal. Estimated blood loss: none. Impression: - Chronic gastritis no signs of bleeding/recent bleed. - Normal first portion of the duodenum and second portion of the duodenum. - No specimens collected. Recommendation: - Ad[facility] the [facility]. - Use Protonix (pantoprazole) 40 mg PO daily indefinitely. Assessment: 40-year-old M with alcohol use disorder and current smoker who presented with weakness and lightheadedness and admitted for acute on chronic anemia s/p 2u of blood pending EGD this AM. Of note, the patient has a right neck mass with concern for malignancy given smoking and alcohol history. Dr. Brunner spoke with ENT, Dr. Hernandez who recommended CT neck with contrast and repeat FNA. Plan: 1. Acute on chronic anemia Labs from 04/06/2021 suggest iron deficiency anemia Hemoglobin on admission was 5.6, s/p 2 units of blood, now 7.1 s/p EGD yesterday, no active bleeding source but with some chronic gastritis IV Protonix twice daily NPO for neck FNA today 2. Right neck mass Discussed with ENT, Dr. Hernandez Recommend repeat CT neck with contrast, read still pending since 04/25? FNA scheduled for today, 04/27 3. Alcohol use disorder Patient had admission in 2017 for delirium tremens from alcohol withdrawal Last alcoholic drink was 04/25/2021 at 7 AM folic acid, thiamine, and multivitamin today Serax taper ordered with holding parameters As needed IV lorazepam for high CIWA scores per protocol 4. Nicotine use disorder Smoking cessation counseling ordered and provided 5. DVT prophylaxis No chemical prophylaxis due to concern for GI bleed SCDs and teds 6. Hypokalemia: replete PRN VS,Fishbone, I+O VS, Fishbone, I+O Laboratory Tests 04/27/21 04:51 Vital Signs Date Time Temp Pulse Resp B/P (MAP) Pulse Ox O2 Delivery O2 Flow Rate FiO2 04/27/21 04:00 78 144/76 04/27/21 04:00 98.4 18 99 Room Air I&O- Last 24 Hours up to 6 AM 04/27/21 06:00 Intake Total 3365 ml Output Total 1350 ml Balance 2015 ml ALCIRA MCRAE MD Apr 27, 2021 09:49
--- NOTE | 2021-04-27 19:44 | REP ---
INDICATION: FNA right neck lymph node. COMPARISON: None. TECHNIQUE: The procedure was performed by RIVER Cordero, under the direct supervision of Dr. Leahy. The risks and benefits of the procedure were explained to the patient and an informed consent was obtained both verbally and written. Directly prior to the start of the procedure a formal time-out was completed in the procedure room. The right neck nodule was localized using ultrasound guidance. The skin was prepped and draped in a sterile fashion. Four mL of 1% lidocaine was used as a local anesthetic. Using ultrasound guidance a 7 fine needle aspirations were obtained using 25 gauge needles. The patient tolerated the procedure well and there were no immediate complications. After the appropriate amount of monitored convalescence the patient was discharged from the department. FINDINGS: The right neck nodule was localized using ultrasound guidance. The skin was prepped and draped in sterile fashion. 4 mL of 1% lidocaine was used for local anesthetic. Using ultrasound guidance 7 fine needle aspirations were obtained using 25 gauge needles. Four of these were placed in CytoLyt. And 3 were placed in flow cytometry. These were sent to the lab for further evaluation. Results pending. IMPRESSION: Successful ultrasound-guided right neck nodule fine needle aspiration. <Electronically signed by Ketty Mike > 04/27/21 1631 <Electronically signed by Evert Leahy > 04/27/21 1940
[2021-04-28] VITALS: BP 142/76
[2021-04-28 04:00] VITALS: BP 170/88
[2021-04-28] MEDS ORDERED: MORPHINE 2 MG/ML 1ML VIAL (J2270) IV ONE (04:25)
[2021-04-28 05:36] LABS: HEMATOCRIT 26.5 % (42.0-52.0); HEMOGLOBIN 7.6 g/dl (13.5-17.5); MEAN CORPUSCULAR HEMOGLOBIN 23.6 pg (27.0-33.0); MEAN CORPUSCULAR HGB CONC 28.7 g/dl (32.0-36.5); MEAN CORPUSCULAR VOLUME 82.3 fl (80.0-96.0); PLATELET COUNT, AUTOMATED 121 10^3/uL (150-450); RED BLOOD COUNT 3.22 10^6/uL (4.30-6.10); WHITE BLOOD COUNT 4.4 10^3/uL (4.0-10.0)
[2021-04-28 05:56] LABS: BLOOD UREA NITROGEN 7 MG/DL (7-18); CALCIUM LEVEL 7.9 MG/DL (8.5-10.1); CARBON DIOXIDE LEVEL 25 MEQ/L (21-32); CHLORIDE LEVEL 107 MEQ/L (98-107); CREATININE FOR GFR 0.61 MG/DL (0.70-1.30); GLOMERULAR FILTRATION RATE > 60.0 (>60); GLUCOSE, FASTING 144 MG/DL (70-100); POTASSIUM SERUM 3.6 MEQ/L (3.5-5.1); SODIUM LEVEL 139 MEQ/L (136-145)
[2021-04-28] MEDS ORDERED: PANT-23 PO (07:36)
--- NOTE | 2021-04-28 07:56 | DS.PDOC ---
Discharge Summary General Date of Admission Apr 25, 2021 at 13:06 Date of Discharge 04/28/2021 Attending Physician: ALCIRA MCRAE MD Discharge Summary PROCEDURES PERFORMED DURING STAY: EGD on 04/[address] Vasquez, re-FNA for neck mass on 04/27 ADMITTING DIAGNOSES: Symptomatic anemia DISCHARGE DIAGNOSES: Acute on chronic anemia, with symptomatic anemia Alcoholic gastritis Alcohol use disorder w/ active withdrawal Hypertension Right neck mass Nicotine dependence Radiologically noted liver cirrhosis, presumed alcoholic COMPLICATIONS/CHIEF COMPLAINT: Acute Blood Loss Anemia, Etoh Abuse. HISTORY OF PRESENT ILLNESS: 40-year-old M with alcohol use disorder and current smoker who presented with weakness and lightheadedness. Patient was recently admitted from April 05 to April 07 for acute anemia and right neck mass. At that time his hemoglobin was 2.6 and he received a total of 5 transfusions to get up to 7.7. He was stable around 7.7. Patient had a right neck FNA which was sent out for testing and flow cytometry did not show any evidence of non-Hodgkin's lymphoma but the sample was degenerated. Patient reported that he continues to smoke and drink alcohol. He presented reporting 1 week of progressive weakness and lightheadedness and when he started to have trouble walking, he decided to come into the ED for evaluation. Of note, he came in on 04/24/2021 and was found anemic at 5.3. He was going to be admitted but left AMA. He reported soft bowel movements, but denied any melena or hematochezia. He reported that his bowel movements were brown. He denied nausea or vomiting, and otherwise had abdominal pain and tenderness. HOSPITAL COURSE: In the ED, he was hemodynamically stable but his hemoglobin is 5.6 much like 2d prior. General surgery, Dr. Vasquez, was consulted and he was admitted with plan for EGD given a prior history (per chart) of alcoholic gastritis with prior bleeding. He was otherwise transfused 2u of pRBCs with Hgb to ~7s and it remained stable thereafter. He had an EGD on 04/26 that showed gastritis but no site of active bleeding and was recommended to continue protonix for life. In the meantime, admitting MD reached out to ENT, Dr. Hernandez about patient's neck mass. Patient had not fever or leukocytosis, but has mild pain with swallowing. With his smoking and alcohol history, he is at risk for malignancy. Dr. Hernandez recommended repeating CT of the neck with contrast to ensure this is not an abscess and to obtain another FNA since the previous sample degenerated. He had a repeat CT of his neck but the read has been pending since 04/25 and he had a repeat FNA on 04/27. His course was c/b alcohol withdrawal that was managed with benzodiazepine therapy per [facility]. He is now being discharged home with prompt PCP and ENT follow up for anemia without evidence of radha GI bleeding though it may still be possible given continued alcohol vs. marrow suppressive effects of alcohol and SUSAN, as well neck mass, respectively. DISCHARGE MEDICATIONS: Please see below. ALLERGIES: Please see below. PHYSICAL EXAMINATION ON DISCHARGE: VITAL SIGNS: Please see below. General: Alert, Cooperative, NAD Eyes: EOMI, anicteric ENT: Atraumatic Neck: Has R neck fullness, nontender to palpation, no JVD Chest: Clear to auscultation, no rales, rhonchi or wheezing Heart: Rate Normal, Regular Rhythm, no m/r/g Abdomen: Normal bowel sounds, NTND Extremities: No edema, WWP Neuro: Normal Speech, Cranial Nerves 3-12 NL Psych: Mental status NL, Mood NL LABORATORY DATA: Please see below. IMAGING: EGD: Findings: There is no endoscopic evidence of bleeding, areas of erosion, esophagitis, inflammation or varices in the entire esophagus. Patchy mild inflammation no signs of bleeding/recent bleed characterized by erythema was found in the cardia and in the gastric antrum. Estimated blood loss: none. The first portion of the duodenum and second portion of the duodenum were normal. Estimated blood loss: none. Impression: - Chronic gastritis no signs of bleeding/recent bleed. - Normal first portion of the duodenum and second portion of the duodenum. - No specimens collected. Recommendation: - Ad[facility] the [facility] care. - Use Protonix (pantoprazole) [address] daily [address] A/P: Liver includes stable 2.5 cm hypodense lesion likely representing hemangioma given findings on recent ultrasound dated 04/05/2021. Nodular hepatic contour is also identified and suggests underlying cirrhosis. Few midline upper abdominal lymph nodes surround the celiac axis and within gastrohepatic ligament are nonspecific and may be related to underlying hepatocellular disease/cirrhosis. Spleen is mildly enlarged. Pancreas, gallbladder, bilateral adrenal glands and kidneys are normal. The enteric system including stomach, small, and large bowel appears normal. No evidence for obstruction or acute inflammatory process. Normal terminal ileum and appendix are identified in the right lower quadrant. Sigmoid diverticulosis noted without acute diverticulitis. Pelvis demonstrates normal bladder and age-appropriate prostate/seminal vesicles. No ascites. No free air. No retroperitoneal adenopathy. Abdominal aorta and vasculature appear normal. Musculoskeletal structures are intact and without acute osseous abnormality. IMPRESSION: 1. Findings consistent with cirrhosis and suspected hepatic hemangioma. 2. Sigmoid diverticulosis without obvious acute diverticulitis. PROGNOSIS: Good with alcohol cessation and medial compliance ACTIVITY: As tolerated DIET: regular, as tolerated DISCHARGE PLAN: Home with PCP and ENT within 7d DISPOSITION: Home DISCHARGE INSTRUCTIONS: Home with PCP and ENT within 7d Strongly recommend that he stops drinking and smoking. Please see PCP for quitting aides as needed I refilled your protonix, please take it twice daily for 2w, then once daily thereafter. ITEMS TO FOLLOWUP ON ON OUTPATIENT: Anemia Alcohol cessation Neck mass Smoking cessation DISCHARGE CONDITION: Stable TIME SPENT ON DISCHARGE: 54 minutes. Vital Signs/I&Os Vital Signs Date Time Temp Pulse Resp B/P (MAP) Pulse Ox O2 Delivery O2 Flow Rate FiO2 04/28/21 04:43 18 04/28/21 04:33 Room Air 04/28/21 04:00 170/88 04/28/21 04:00 97.6 84 98 l I&O- Last 24 Hours up to 6 AM 04/28/21 06:00 Intake Total 1255 ml Output Total 625 ml Balance 630 ml Laboratory Data Labs 24H Laboratory Tests 2 04/28/21 05:08: Nucleated Red Blood Cells % (auto) 0.0, Anion Gap 7L, Glomerular Filtration Rate > 60.0, Calcium Level 7.9L CBC/BMP Laboratory Tests 04/28/21 05:08 Discharge Medications Scheduled Escitalopram Oxalate (Lexapro) 20 Mg Tablet, 20 MG PO DAILY, (Reported) Ferrous Sulfate (Ferosul) 325 Mg Tablet, 325 MG PO DAILY, (Reported) Folic Acid (Folic Acid) 1 Mg Tablet, 1 MG PO DAILY, (Reported) Gabapentin (Gabapentin) 600 Mg Tablet, 600 MG PO BID, (Reported) Lisinopril (Lisinopril) 30 Mg Tablet, 30 MG PO DAILY, (Reported) Pantoprazole Sodium (Pantoprazole Sodium) 40 Mg Tablet.dr, 40 MG PO BID Thiamine HCl (Vitamin B-1) 100 Mg Tablet, 100 MG PO BID, (Reported) Allergies Coded Allergies: Penicillins (Verified Allergy, Unknown, 11/03/18) amoxicillin (Verified Allergy, Unknown, 11/03/18) clavulanic acid (Verified Allergy, Unknown, 11/03/18) diphenhydramine (Verified Allergy, Unknown, 11/03/18) ibuprofen (Verified Allergy, Unknown, 11/03/18) naproxen (Verified Allergy, Unknown, 11/03/18) ALCIRA MCRAE MD Apr 28, 2021 07:56
[2021-04-28 07:59] VITALS: BP 183/89
[2021-04-28] MEDS: PANTOPRAZOLE 40MG VIAL (C9113 PER 1) IV SCH (08:57)
[2021-04-28] MEDS: ESCITALOPRAM OXALATE 10 MG TAB (LEXAPRO) PO SCH (08:58)
[2021-04-28] MEDS: GABAPENTIN 300 MG CAP PO SCH (08:58)
--- NOTE | 2021-05-02 16:09 | REPVR ---
PROCEDURE INFORMATION: Exam: CT Neck With Contrast Exam date and time: 04/25/2021 4:44 PM Age: 40 years old Clinical indication: Mass, lump, or swelling in neck; Right; Additional info: Right neck mass TECHNIQUE: Imaging protocol: Computed tomography images of the neck with contrast. Radiation optimization: All CT scans at this facility use at least one of these dose optimization techniques: automated exposure control; mA and/or kV adjustment per patient size (includes targeted exams where dose is matched to clinical indication); or iterative reconstruction. Contrast material: ISOVUE 370; Contrast volume: 75 ml; Contrast route: INTRAVENOUS (IV); COMPARISON: CT Neck without contrast 04/05/2021 5:40 AM FINDINGS: Paranasal sinuses: Mild mucosal thickening in the inferior maxillary sinuses. Nasopharynx: Unremarkable. Dental: Dental periapical lucencies are noted. Oropharynx: Right oropharyngeal and hypopharyngeal soft tissue thickening is again demonstrated. This is a persistent finding, concerning for a malignancy, specifically for a squamous cell carcinoma. Direct visualization and sampling is recommended. This is seen for example on coronal image 32 of series 202. At the level of the oropharynx, soft tissue density contacts the right uvula. The masslike process is inseparable from the right epiglottis. There is asymmetric effacement of the right vallecular space and piriform sinus. Diffuse masslike thickening extending along the right aryepiglottic fold, sharma of the priform sinus, reaching the posterior hypopharyngeal wall. This soft tissue density extends inferiorly to the level of the right false vocal fold. Hypopharynx: See "Oropharynx" finding. Larynx: See "Oropharynx" finding. Retropharyngeal space: Retropharyngeal edema is mild. No discrete fluid collection or abscess. Submandibular/Parotid glands: Normal. Glands are normal in size. Thyroid: Normal. No enlarged or calcified nodules. Lymph nodes: Heterogeneous right cervical lymphadenopathy is again demonstrated. On this contrast-enhanced study, peripheral enhancement with areas of central low attenuation in the nodes suggesting necrosis. A right jugulodigastric lymph node measures 3.5 x 2.0 cm on sagittal image 33 of series 203. There are additional enlarged, peripherally enhancing, centrally low attenuating right level 2 and level 3 lymph nodes, for example lymph node anterior to the right internal jugular vein just below the level of the hyoid bone measuring 2.3 x 1.2 cm on image 35 of series 203. There is shotty right accessory nette chain lymphadenopathy. Mediastinal lymph nodes are mildly prominent in number. Trachea: Visualized trachea is unremarkable. Lungs: Unremarkable as visualized. Bones/joints: No acute fracture seen. 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 Mild, chronic T3 superior endplate height loss. Vasculature: The right internal jugular vein is moderately effaced. 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 Electronically signed by: Rosa Elena Lea On 05/02/2021 16:08:25 PM
== END 2021-04-28 10:10 | disposition home or self-care (01) | DRG 663 ==
LOC: M ED 10:56 → M ED INP 13:06 → M PCU 22:33
PROVIDERS: ADMIT Internal Medicine; ATTEND Internal Medicine
PROC: 30233N1 Transfusion of Nonautologous Red Blood Cells into Peripheral Vein, Percutaneous Approach (ICD-10-PCS; 2021-04-25)
PROC: 0DJ08ZZ Inspection of Upper Intestinal Tract, Via Natural or Artificial Opening Endoscopic (ICD-10-PCS; 2021-04-26)
PROC: 0W963ZX Drainage of Neck, Percutaneous Approach, Diagnostic (ICD-10-PCS; principal; 2021-04-27 13:34)
DX: D62 Acute posthemorrhagic anemia (principal); I10 Essential (primary) hypertension; K70.30 Alcoholic cirrhosis of liver without ascites; R22.1 Localized swelling, mass and lump, neck; F10.130 Alcohol abuse with withdrawal, uncomplicated; F17.200 Nicotine dependence, unspecified, uncomplicated; K29.20 Alcoholic gastritis without bleeding; Z20.822 Contact with and (suspected) exposure to COVID-19; Z88.0 Allergy status to penicillin; Z88.1 Allergy status to other antibiotic agents; Z88.6 Allergy status to analgesic agent; Z88.8 Allergy status to other drugs, medicaments and biological substances

== ENCOUNTER 2021-05-22 12:02 | Emergency (ER) | payer OTHER ==
[~2021-05-22 12:02] MED LIST changes: +FERR325T19 PO; -FOLIC ACID 1 MG TAB PO SCH; -MULTIVITAMINS/MINERALS THERAP 1 TAB PO SCH; +THIA100T22 PO; -THIAMINE 100 MG TAB PO SCH
[2021-05-22] MEDS ORDERED: CLIN-250 PO (12:20)
[2021-05-22] MEDS ORDERED: methylPREDNISolone 125MG 2ML VIAL IV ONE (12:25)
[2021-05-22] MEDS ORDERED: MORPHINE 2 MG/ML 1ML VIAL (J2270) IV ONE (12:45)
[2021-05-22 12:57] LABS: BASO # 0.1 10^3/uL (0.0-0.2); BASO % 1.3 % (0.0-1.0); EOS # 0.1 10^3/uL (0.0-0.5); EOS % 2.3 % (0.0-3.0); HEMATOCRIT 30.8 % (42.0-52.0); HEMOGLOBIN 8.7 g/dl (13.5-17.5); LYMPH # 0.8 10^3/uL (1.5-5.0); LYMPH % 17.3 % (24.0-44.0); MEAN CORPUSCULAR HEMOGLOBIN 21.4 pg (27.0-33.0); MEAN CORPUSCULAR HGB CONC 28.2 g/dl (32.0-36.5); MEAN CORPUSCULAR VOLUME 75.7 fl (80.0-96.0); MONO % 21.5 % (2.0-8.0); NEUTROPHILS # 2.7 10^3/uL (1.5-8.5); NEUTROPHILS % 57.4 % (36.0-66.0); PLATELET COUNT, AUTOMATED 144 10^3/uL (150-450); RED BLOOD COUNT 4.07 10^6/uL (4.30-6.10); WHITE BLOOD COUNT 4.8 10^3/uL (4.0-10.0)
[2021-05-22] MEDS ORDERED: ISOVUE-370 76% 100ML VIAL As Ordered ONE (13:10)
[2021-05-22 13:19] LABS: ERYTHROCYTE SEDIMENTATION RATE 30 mm/hr (0-15)
[2021-05-22 13:31] LABS: ALBUMIN 3.4 GM/DL (3.2-5.2); ALT/SGPT 39 U/L (12-78); BILIRUBIN,DIRECT 0.2 MG/DL (0.0-0.2); BILIRUBIN,TOTAL 0.5 MG/DL (0.2-1.0); C REACTIVE PROTEIN QUANTITATIV < 0.30 MG/DL (0.00-0.30); ETHYL ALCOHOL (ETHANOL) 0.405 % (0.000-0.010); TOTAL PROTEIN 7.6 GM/DL (6.4-8.2)
--- NOTE | 2021-05-22 14:17 | REPVR ---
PROCEDURE INFORMATION: Exam: CT Neck With Contrast Exam date and time: 05/22/2021 1:16 PM Age: 40 years old Clinical indication: Other: Left dental michelle w/ dental facial swelling TECHNIQUE: Imaging protocol: Computed tomography images of the neck with contrast. Radiation optimization: All CT scans at this facility use at least one of these dose optimization techniques: automated exposure control; mA and/or kV adjustment per patient size (includes targeted exams where dose is matched to clinical indication); or iterative reconstruction. Contrast material: ISOVUE 370; Contrast volume: 75 ml; Contrast route: INTRAVENOUS (IV); COMPARISON: CT Neck with contrast 04/25/2021 4:34 PM FINDINGS: Brain: Paranasal sinuses: Mucosal thickening left maxillary sinus. Nasopharynx: Unremarkable. Oropharynx: There is abnormal soft tissue thickening noted at the level of the right palatine tonsil with mass effect upon the adjacent airway and obliteration of normal parapharyngeal fat on the right.. Hypopharynx: The abnormal soft tissue thickening continues inferiorly to the level of the piriform sinus and supraglottic airway with mass effect upon the airway displacing it to the left. Mass effect obliterates in part the piriform sinus. Larynx: Thickening of the right aryepiglottic fold. Retropharyngeal space: Unremarkable. Submandibular/Parotid glands: Normal. Glands are normal in size. Thyroid: Normal. No enlarged or calcified nodules. Lymph nodes: Enlarged low-density rim enhancing right jugulodigastric nodes with combined diameter 3 by 1.7 by 2.5 cm.. Rim enhancing low-density 4 right posterior cervical lymph nodes measures 1 cm. Dental: Dental michelle noted involving the #10. Tooth and #14 tooth. Trachea: Visualized trachea is unremarkable. Lungs: Unremarkable as visualized. Bones/joints: Unremarkable. No acute fracture. Soft tissues: Soft tissue swelling noted on the left side of the face centered in the region of the zygoma and inferior orbital ridge and preseptal soft tissues. There is loss of normal fat plane surrounding the carotid sheath structures on the right.. IMPRESSION: 1. Infiltrative neoplasm suggested at the level of the right tonsillar pillar extending inferiorly to the supraglottic airway. Adenopathy on the right suggests metastatic extension 2. Left-sided preseptal and pre maxillary soft tissue swelling. Dental caries noted in the maxilla are present however the soft tissue swelling appears more superior than the location of the disease to tooth. 3. Maxillary chronic sinusitis. Electronically signed by: Virginia Morse On 05/22/2021 14:17:24 PM
[2021-05-22 15:32] VITALS: BP 121/78
[2021-05-22] MEDS ORDERED: PRED10TA2 PO (15:35)
== END 2021-05-22 16:24 | disposition home or self-care (01) ==
LOC: M ED 12:02
DX: T78.40XA Allergy, unspecified, initial encounter (principal); R22.0 Localized swelling, mass and lump, head; D49.0 Neoplasm of unspecified behavior of digestive system; K02.9 Dental caries, unspecified; J32.9 Chronic sinusitis, unspecified; I10 Essential (primary) hypertension; F10.10 Alcohol abuse, uncomplicated; K21.9 Gastro-esophageal reflux disease without esophagitis; Z88.0 Allergy status to penicillin; Z88.1 Allergy status to other antibiotic agents; Z88.8 Allergy status to other drugs, medicaments and biological substances; Z79.899 Other long term (current) drug therapy; F17.200 Nicotine dependence, unspecified, uncomplicated
CPT/HCPCS: 70491; 80047; 80076; 82077; 83605; 85025; 85652; 86140; 87040; 93041; 94760; 96374; 99285; J2930; Q9967

== ENCOUNTER 2021-05-24 12:23 | Inpatient (IN) | payer OTHER ==
[2021-05-24] VITALS (7 sets, daily range): BP systolic 126–146; BP diastolic 68–100
[~2021-05-24] VITALS: Ht 167.6 cm; Wt 65.5 kg
[~2021-05-24 12:23] MED LIST changes: -CEFD1CAP8 PO; +CEFD300C41 PO; -LISI-898 PO; +LISI5TAB11 PO; +PRED10TA2 PO
[2021-05-24 15:59] LABS: HEMATOCRIT 24.6 % (42.0-52.0); MEAN CORPUSCULAR HEMOGLOBIN 20.8 pg (27.0-33.0); MEAN CORPUSCULAR HGB CONC 27.6 g/dl (32.0-36.5); MEAN CORPUSCULAR VOLUME 75.2 fl (80.0-96.0); PLATELET COUNT, AUTOMATED 191 10^3/uL (150-450); RED BLOOD COUNT 3.27 10^6/uL (4.30-6.10)
[2021-05-24 16:03] LABS: HEMOGLOBIN 6.8 g/dl (13.5-17.5)
[2021-05-24 16:27] LABS: INR 1.17; PROTHROMBIN TIME 15.3 SECONDS (12.7-14.5)
[2021-05-24 16:28] LABS: ALBUMIN 3.5 GM/DL (3.2-5.2); ALT/SGPT 36 U/L (12-78); BILIRUBIN,DIRECT 0.3 MG/DL (0.0-0.2); BILIRUBIN,TOTAL 0.9 MG/DL (0.2-1.0); BLOOD UREA NITROGEN 26 MG/DL (7-18); CALCIUM LEVEL 9.2 MG/DL (8.5-10.1); CARBON DIOXIDE LEVEL 22 MEQ/L (21-32); CHLORIDE LEVEL 104 MEQ/L (98-107); CREATININE FOR GFR 0.66 MG/DL (0.70-1.30); GLOMERULAR FILTRATION RATE > 60.0 (>60); GLUCOSE, FASTING 125 MG/DL (70-100); LIPASE 154 U/L (73-393); PARTIAL THROMBOPLASTIN TIME 30.5 SECONDS (25.9-37.0); POTASSIUM SERUM 4.2 MEQ/L (3.5-5.1); SODIUM LEVEL 136 MEQ/L (136-145); TOTAL PROTEIN 7.7 GM/DL (6.4-8.2)
[2021-05-24] MEDS ORDERED: ISOVUE-370 76% 100ML VIAL As Ordered ONE (16:45)
[2021-05-24 17:01] LABS: LYMPHOCYTES 2 % (16-44); MONOCYTES 2 % (0-5); NEUTROPHILS 96 % (28-66)
[2021-05-24 17:03] LABS: ANISOCYTOSIS 3+; MICROCYTOSIS 1+; POLYCHROMASIA 1+
[2021-05-24 17:04] LABS: HYPOCHROMASIA 2+
[2021-05-24 17:05] LABS: POIKILOCYTOSIS 1+
[2021-05-24 17:07] LABS: PLATELET CLUMPS SMALL AMT; PLATELET ESTIMATE NORMAL (NORMAL); TEAR DROP CELLS 1+
[2021-05-24] MEDS ORDERED: PANTOPRAZOLE 40MG VIAL (C9113 PER 1) IV ONE (18:35)
[2021-05-24] MEDS ORDERED: MORPHINE 2 MG/ML 1ML VIAL (J2270) IV PRN (19:20)
[2021-05-24] MEDS ORDERED: ACETAMINOPHEN TAB 650MG DOSE (2X325MG) PO PRN (19:20)
[2021-05-24] MEDS ORDERED: ONDANSETRON 4MG/2ML VIAL IV PRN (19:20)
[2021-05-24] MEDS ORDERED: PROT1TAB2 PO (19:23)
[2021-05-24] MEDS ORDERED: LORazepam 2 MG TAB PO PRN (19:25)
[2021-05-24] MEDS ORDERED: HOME MED LIST COMPLETE! XX SCH (19:25)
[2021-05-24] MEDS: LR 1,000 ML IV SCH (23:37)
[2021-05-24] MEDS: SUCRALFATE 1 GM TAB PO SCH (23:37)
[2021-05-24] MEDS: THIAMINE 100 MG TAB PO SCH (23:37)
[2021-05-24] MEDS: GABAPENTIN 300 MG CAP PO SCH (23:38)
[2021-05-25 00:20] LABS: HEMATOCRIT 28.6 % (42.0-52.0); HEMOGLOBIN 8.7 g/dl (13.5-17.5)
[2021-05-25 01:00] VITALS: BP 146/100
[2021-05-25 06:00] VITALS: BP 134/80
[2021-05-25 06:46] LABS: HEMATOCRIT 26.2 % (42.0-52.0); HEMOGLOBIN 8.1 g/dl (13.5-17.5); MEAN CORPUSCULAR HEMOGLOBIN 24.4 pg (27.0-33.0); MEAN CORPUSCULAR HGB CONC 30.9 g/dl (32.0-36.5); MEAN CORPUSCULAR VOLUME 78.9 fl (80.0-96.0); PLATELET COUNT, AUTOMATED 109 10^3/uL (150-450); RED BLOOD COUNT 3.32 10^6/uL (4.30-6.10); WHITE BLOOD COUNT 5.3 10^3/uL (4.0-10.0)
[2021-05-25] MEDS: LR 1,000 ML IV SCH ×2 (06:46→15:58)
[2021-05-25 07:14] LABS: BLOOD UREA NITROGEN 15 MG/DL (7-18); CALCIUM LEVEL 8.6 MG/DL (8.5-10.1); CARBON DIOXIDE LEVEL 24 MEQ/L (21-32); CHLORIDE LEVEL 106 MEQ/L (98-107); CREATININE FOR GFR 0.51 MG/DL (0.70-1.30); GLOMERULAR FILTRATION RATE > 60.0 (>60); GLUCOSE, FASTING 80 MG/DL (70-100); POTASSIUM SERUM 3.2 MEQ/L (3.5-5.1); SODIUM LEVEL 137 MEQ/L (136-145)
[2021-05-25] MEDS: SUCRALFATE 1 GM TAB PO SCH ×4 (08:43→22:24)
[2021-05-25] MEDS: ESCITALOPRAM OXALATE 10 MG TAB (LEXAPRO) PO SCH (08:43)
[2021-05-25] MEDS: PANTOPRAZOLE 40MG VIAL (C9113 PER 1) IV SCH ×2 (08:43→22:23)
[2021-05-25] MEDS: FOLIC ACID 1 MG TAB PO SCH (08:43)
[2021-05-25] MEDS: FERROUS SULFATE 325MG TAB PO SCH (08:44)
[2021-05-25] MEDS: MULTIVITAMINS/MINERALS THERAP 1 TAB PO SCH (08:44)
[2021-05-25] MEDS: GABAPENTIN 300 MG CAP PO SCH ×2 (08:44→22:24)
[2021-05-25] MEDS: predniSONE 10 MG TAB PO SCH (08:44)
[2021-05-25] MEDS: THIAMINE 100 MG TAB PO SCH ×2 (08:44→22:24)
[2021-05-25] MEDS ORDERED: KCL 10MEQ/100ML SWI (KRUN) 10 MEQ in IV 1 EA IV SCH (09:00)
[2021-05-25] MEDS ORDERED: methylPREDNISolone 125MG 2ML VIAL IV STA ×3 (10:15→18:10)
[2021-05-25] MEDS ORDERED: EPINEPHrine INJ 1 MG/ML 1ML AMP IM STA ×2 (10:17→18:10)
[2021-05-25] MEDS ORDERED: EPINEPHrine (1MG/ML) IV IM PRN (10:45)
[2021-05-25 12:30] LABS: HEMATOCRIT 25.9 % (42.0-52.0); HEMOGLOBIN 8.1 g/dl (13.5-17.5)
[2021-05-25] MEDS: MORPHINE 4 MG/ML 1ML VIAL/SYRINGE (J2270) IV PRN ×3 (12:41→23:54)
[2021-05-25 14:00] VITALS: BP_SYST 152; BP_SYST 153; BP_DIAS 95; BP_DIAS 98
[2021-05-25] MEDS ORDERED: FAMOTIDINE 20 MG TAB PO ONE (18:15)
[2021-05-25 18:25] LABS: HEMATOCRIT 25.7 % (42.0-52.0); HEMOGLOBIN 7.9 g/dl (13.5-17.5); MEAN CORPUSCULAR HEMOGLOBIN 24.2 pg (27.0-33.0); MEAN CORPUSCULAR HGB CONC 30.7 g/dl (32.0-36.5); MEAN CORPUSCULAR VOLUME 78.6 fl (80.0-96.0); PLATELET COUNT, AUTOMATED 117 10^3/uL (150-450); RED BLOOD COUNT 3.27 10^6/uL (4.30-6.10); WHITE BLOOD COUNT 4.8 10^3/uL (4.0-10.0)
[2021-05-25 22:00] VITALS: BP 159/93
[2021-05-25] MEDS: FIDAXOMICIN 200 MG TAB (DIFICID) PO SCH (22:24)
[2021-05-26] VITALS (10 sets, daily range): BP systolic 140–158; BP diastolic 50–101
[2021-05-26 06:45] LABS: HEMATOCRIT 25.3 % (42.0-52.0); HEMOGLOBIN 7.7 g/dl (13.5-17.5); MEAN CORPUSCULAR HEMOGLOBIN 24.1 pg (27.0-33.0); MEAN CORPUSCULAR HGB CONC 30.4 g/dl (32.0-36.5); MEAN CORPUSCULAR VOLUME 79.1 fl (80.0-96.0); PLATELET COUNT, AUTOMATED 117 10^3/uL (150-450); WHITE BLOOD COUNT 6.1 10^3/uL (4.0-10.0)
[2021-05-26 07:04] LABS: BLOOD UREA NITROGEN 8 MG/DL (7-18); CALCIUM LEVEL 8.4 MG/DL (8.5-10.1); CARBON DIOXIDE LEVEL 26 MEQ/L (21-32); CHLORIDE LEVEL 103 MEQ/L (98-107); CREATININE FOR GFR 0.51 MG/DL (0.70-1.30); GLOMERULAR FILTRATION RATE > 60.0 (>60); GLUCOSE, FASTING 132 MG/DL (70-100); MAGNESIUM LEVEL 2.1 MG/DL (1.8-2.4); POTASSIUM SERUM 3.1 MEQ/L (3.5-5.1); SODIUM LEVEL 134 MEQ/L (136-145)
[2021-05-26] MEDS ORDERED: POTASSIUM CHLORIDE 10MEQ SR TABLET PO ONE ×3 (08:10→11:00)
[2021-05-26] MEDS: PANTOPRAZOLE 40MG VIAL (C9113 PER 1) IV SCH ×2 (08:15→20:46)
[2021-05-26] MEDS: MORPHINE 4 MG/ML 1ML VIAL/SYRINGE (J2270) IV PRN ×3 (08:16→19:03)
[2021-05-26] MEDS: GABAPENTIN 300 MG CAP PO SCH ×2 (08:17→20:46)
[2021-05-26] MEDS: FERROUS SULFATE 325MG TAB PO SCH (08:17)
[2021-05-26] MEDS: THIAMINE 100 MG TAB PO SCH ×2 (08:18→20:46)
[2021-05-26] MEDS: MULTIVITAMINS/MINERALS THERAP 1 TAB PO SCH (08:18)
[2021-05-26] MEDS: predniSONE 10 MG TAB PO SCH (08:19)
[2021-05-26] MEDS: FIDAXOMICIN 200 MG TAB (DIFICID) PO SCH ×2 (08:19→20:46)
[2021-05-26] MEDS: FOLIC ACID 1 MG TAB PO SCH (08:19)
[2021-05-26] MEDS: ESCITALOPRAM OXALATE 10 MG TAB (LEXAPRO) PO SCH (08:19)
[2021-05-26] MEDS: SUCRALFATE 1 GM TAB PO SCH ×4 (08:19→20:46)
[2021-05-26] MEDS: NICOTINE 14 MG/24 HR TRANSDERMAL TD PRN (12:13)
[2021-05-26] MEDS ORDERED: PERCOCET 5MG/325MG TAB PO PRN (19:50)
[2021-05-26] MEDS: PERCOCET 5MG/325MG TAB PO PRN (20:47)
[2021-05-26 21:58] LABS: HEMATOCRIT 29.2 % (42.0-52.0); HEMOGLOBIN 9.1 g/dl (13.5-17.5); MEAN CORPUSCULAR HEMOGLOBIN 25.1 pg (27.0-33.0); MEAN CORPUSCULAR HGB CONC 31.2 g/dl (32.0-36.5); MEAN CORPUSCULAR VOLUME 80.4 fl (80.0-96.0); PLATELET COUNT, AUTOMATED 123 10^3/uL (150-450); RED BLOOD COUNT 3.63 10^6/uL (4.30-6.10); WHITE BLOOD COUNT 8.6 10^3/uL (4.0-10.0)
[2021-05-27] VITALS (9 sets, daily range): BP systolic 152–182; BP diastolic 60–99
[2021-05-27 06:22] LABS: HEMATOCRIT 29.1 % (42.0-52.0); MEAN CORPUSCULAR HEMOGLOBIN 25.1 pg (27.0-33.0); MEAN CORPUSCULAR HGB CONC 30.9 g/dl (32.0-36.5); MEAN CORPUSCULAR VOLUME 81.3 fl (80.0-96.0); PLATELET COUNT, AUTOMATED 109 10^3/uL (150-450); RED BLOOD COUNT 3.58 10^6/uL (4.30-6.10); WHITE BLOOD COUNT 6.5 10^3/uL (4.0-10.0)
[2021-05-27] MEDS: PERCOCET 5MG/325MG TAB PO PRN ×3 (06:23→23:07)
[2021-05-27 06:38] LABS: ALT/SGPT 125 U/L (12-78); BLOOD UREA NITROGEN 10 MG/DL (7-18); CALCIUM LEVEL 8.3 MG/DL (8.5-10.1); CARBON DIOXIDE LEVEL 28 MEQ/L (21-32); CHLORIDE LEVEL 107 MEQ/L (98-107); CREATININE FOR GFR 0.52 MG/DL (0.70-1.30); GLOMERULAR FILTRATION RATE > 60.0 (>60); GLUCOSE, FASTING 93 MG/DL (70-100); MAGNESIUM LEVEL 2.3 MG/DL (1.8-2.4); POTASSIUM SERUM 3.2 MEQ/L (3.5-5.1); SODIUM LEVEL 139 MEQ/L (136-145); TOTAL PROTEIN 6.5 GM/DL (6.4-8.2)
[2021-05-27] MEDS: PANTOPRAZOLE 40MG VIAL (C9113 PER 1) IV SCH ×2 (08:58→20:11)
[2021-05-27] MEDS: THIAMINE 100 MG TAB PO SCH (08:59)
[2021-05-27] MEDS: SUCRALFATE 1 GM TAB PO SCH ×4 (08:59→20:11)
[2021-05-27] MEDS: GABAPENTIN 300 MG CAP PO SCH ×2 (08:59→20:12)
[2021-05-27] MEDS: FERROUS SULFATE 325MG TAB PO SCH (08:59)
[2021-05-27] MEDS: MULTIVITAMINS/MINERALS THERAP 1 TAB PO SCH (09:00)
[2021-05-27] MEDS: ESCITALOPRAM OXALATE 10 MG TAB (LEXAPRO) PO SCH (09:00)
[2021-05-27] MEDS: predniSONE 10 MG TAB PO SCH (09:00)
[2021-05-27] MEDS: FOLIC ACID 1 MG TAB PO SCH (09:03)
[2021-05-27] MEDS: FIDAXOMICIN 200 MG TAB (DIFICID) PO SCH ×2 (09:03→20:12)
[2021-05-27] MEDS ORDERED: POTASSIUM CHLORIDE 10MEQ SR TABLET PO ONE (13:00)
[2021-05-27] MEDS ORDERED: OXYMETAZOLINE 0.05% NASAL SPRAY (AFRIN) As Ordered ONE (13:35)
[2021-05-27] MEDS ORDERED: LIDOCAINE W/EPINEPHRINE 1% 20ML VIAL As Ordered ONE (13:35)
[2021-05-27] MEDS ORDERED: METHYLENE BLUE 0.5% (5MG/ML) 10 ML AMP (PROVAYBLUE) As Ordered ONE (13:35)
[2021-05-27] MEDS: NICOTINE 14 MG/24 HR TRANSDERMAL TD PRN (14:28)
[2021-05-27] MEDS ORDERED: ONDANSETRON 4MG/2ML VIAL As Ordered ONE (16:35)
[2021-05-27] MEDS ORDERED: ROCURONIUM BROMIDE 50 MG/5 ML VIAL As Ordered ONE (16:35)
[2021-05-27] MEDS ORDERED: LIDOCAINE 2% 100MG/5ML SDV (FOR ANES.) As Ordered ONE (16:35)
[2021-05-27] MEDS ORDERED: dexameTHASONE 4 MG/ML 1ML VIAL (J1100 PER 1MG) As Ordered ONE ×2 (16:35→16:39)
[2021-05-27] MEDS ORDERED: fentaNYL 100 MCG/2 ML INJECTION (J3010) As Ordered ONE ×2 (16:35→18:16)
[2021-05-27] MEDS ORDERED: ACETAMINOPHEN 1000MG 100ML IV BTL (OFIRMEV) (J0131 PER 10MG) As Ordered ONE (16:35)
[2021-05-27] MEDS ORDERED: propofoL 200 MG/20 ML VIAL As Ordered ONE (16:35)
[2021-05-27] MEDS ORDERED: SUGAMMADEX SODIUM 500 MG/5 ML VIAL (BRIDION) As Ordered ONE (16:35)
[2021-05-27] MEDS ORDERED: MIDAZOLAM INJ 2MG/2ML VIAL (J2250 PER 1MG) As Ordered ONE (16:36)
[2021-05-27] MEDS ORDERED: LIDOCAINE 5% OINT 30GM TUBE As Ordered ONE (16:44)
[2021-05-27] MEDS ORDERED: ePHEDrine SULFATE 25 MG/5 ML(5MG/ML) SYRINGE As Ordered ONE (17:20)
[2021-05-27] MEDS ORDERED: SILVER NITRATE APPLICATOR As Ordered ONE ×2 (17:48→18:19)
[2021-05-27] MEDS: fentaNYL 100 MCG/2 ML INJECTION (J3010) IV PRN ×3 (18:23→18:35)
[2021-05-27] MEDS ORDERED: PERCOCET 5MG/325MG TAB PO PRN (18:45)
[2021-05-27] MEDS ORDERED: ONDANSETRON 4MG/2ML VIAL IV PRN (18:45)
[2021-05-27] MEDS ORDERED: LR 1,000 ML IV SCH (18:45)
[2021-05-28 02:00] VITALS: BP 158/90
[2021-05-28 06:00] VITALS: BP 158/92
[2021-05-28] MEDS: PERCOCET 5MG/325MG TAB PO PRN (06:09)
[2021-05-28 06:20] LABS: MEAN CORPUSCULAR HEMOGLOBIN 25.1 pg (27.0-33.0); MEAN CORPUSCULAR VOLUME 80.8 fl (80.0-96.0); PLATELET COUNT, AUTOMATED 120 10^3/uL (150-450); RED BLOOD COUNT 3.59 10^6/uL (4.30-6.10); WHITE BLOOD COUNT 8.3 10^3/uL (4.0-10.0)
[2021-05-28 06:51] LABS: ALBUMIN 3.1 GM/DL (3.2-5.2); ALT/SGPT 139 U/L (12-78); BILIRUBIN,TOTAL 0.8 MG/DL (0.2-1.0); BLOOD UREA NITROGEN 8 MG/DL (7-18); CALCIUM LEVEL 8.7 MG/DL (8.5-10.1); CARBON DIOXIDE LEVEL 27 MEQ/L (21-32); CHLORIDE LEVEL 102 MEQ/L (98-107); CREATININE FOR GFR 0.53 MG/DL (0.70-1.30); GLOMERULAR FILTRATION RATE > 60.0 (>60); GLUCOSE, FASTING 108 MG/DL (70-100); POTASSIUM SERUM 3.7 MEQ/L (3.5-5.1); SODIUM LEVEL 137 MEQ/L (136-145); TOTAL PROTEIN 6.8 GM/DL (6.4-8.2)
[2021-05-28 09:00] VITALS: BP 162/70
[2021-05-28] MEDS: SUCRALFATE 1 GM TAB PO SCH ×2 (09:09→12:03)
[2021-05-28] MEDS: GABAPENTIN 300 MG CAP PO SCH (09:10)
[2021-05-28] MEDS: ESCITALOPRAM OXALATE 10 MG TAB (LEXAPRO) PO SCH (09:10)
[2021-05-28] MEDS: PANTOPRAZOLE 40MG VIAL (C9113 PER 1) IV SCH (09:10)
[2021-05-28] MEDS: predniSONE 10 MG TAB PO SCH (09:10)
[2021-05-28] MEDS: FERROUS SULFATE 325MG TAB PO SCH (09:10)
[2021-05-28] MEDS: FIDAXOMICIN 200 MG TAB (DIFICID) PO SCH (09:10)
[2021-05-28] MEDS: FOLIC ACID 1 MG TAB PO SCH (09:11)
[2021-05-28] MEDS: MULTIVITAMINS/MINERALS THERAP 1 TAB PO SCH (09:11)
[2021-05-28 09:12] VITALS: BP 162/70
[2021-05-28 10:00] VITALS: BP 142/76
[2021-05-28] MEDS: NICOTINE 14 MG/24 HR TRANSDERMAL TD PRN (12:03)
[2021-05-28] MEDS ORDERED: CLAR500T97 PO (12:44)
[2021-05-28] MEDS ORDERED: FOLI1TAB11 PO (12:44)
[2021-05-28] MEDS ORDERED: METR-265 PO (12:44)
[2021-05-28] MEDS ORDERED: PROT1TAB2 PO (12:44)
[2021-05-28] MEDS ORDERED: FIDA200TA PO (12:44)
[2021-05-28] MEDS ORDERED: SUCR1TA PO (12:44)
[2021-05-28] MEDS ORDERED: PERCOCET PO (12:44)
[2021-05-28] MEDS ORDERED: NICO14PA TD (12:44)
[2021-05-28 14:00] VITALS: BP 164/82
[2021-05-29] MEDS ORDERED: predniSONE 10 MG TAB PO SCH (09:00)
[2021-06-02] MEDS ORDERED: LIDO2SOL17 PO (15:58)
[2021-06-02] MEDS ORDERED: OXYC1SOL3 PO (15:58)
== END 2021-05-28 14:19 | disposition home or self-care (01) | DRG 241 ==
LOC: M ED 12:23 → M ED INP 19:18 → M MSPAV 23:02
PROVIDERS: ADMIT Family Medicine; ATTEND Family Medicine
PROC: 30233N1 Transfusion of Nonautologous Red Blood Cells into Peripheral Vein, Percutaneous Approach (ICD-10-PCS; 2021-05-24)
PROC: 0CBM8ZX Excision of Pharynx, Via Natural or Artificial Opening Endoscopic, Diagnostic (ICD-10-PCS; principal; 2021-05-27 16:00)
DX: K27.4 Chronic or unspecified peptic ulcer, site unspecified, with hemorrhage (principal); A04.72 Enterocolitis due to Clostridium difficile, not specified as recurrent; C77.0 Secondary and unspecified malignant neoplasm of lymph nodes of head, face and neck; F10.10 Alcohol abuse, uncomplicated; I10 Essential (primary) hypertension; T50.3X5A Adverse effect of electrolytic, caloric and water-balance agents, initial encounter; E87.6 Hypokalemia; F17.200 Nicotine dependence, unspecified, uncomplicated; F32.A Depression, unspecified; F41.9 Anxiety disorder, unspecified; D62 Acute posthemorrhagic anemia

== ENCOUNTER → 2021-06-02 | Outpatient (CLI) | payer OTHER ==
[~2021-06-02] MED LIST changes: +B-11TAB PO; +CLAR500T97 PO; +FIDA200TA PO; +LIDO2SO PO; +LIDO2SOL17 PO; +METR-265 PO; +NICO14PA TD; +OXYC10TA12 PO; +OXYC1SOL3 PO; +PERCOCET PO; +PROT1TAB2 PO; +SUCR1TA PO
== END ==
LOC: M ONCR 14:45
PROVIDERS: ATTEND General Practice
DX: C10.8 Malignant neoplasm of overlapping sites of oropharynx (principal); K74.60 Unspecified cirrhosis of liver; I10 Essential (primary) hypertension; F10.21 Alcohol dependence, in remission; F17.210 Nicotine dependence, cigarettes, uncomplicated; Z88.0 Allergy status to penicillin; Z88.1 Allergy status to other antibiotic agents; Z79.891 Long term (current) use of opiate analgesic; Z79.899 Other long term (current) drug therapy
CPT/HCPCS: 31575; G0463

== ENCOUNTER 2021-06-07 08:35 | Inpatient (IN) | payer OTHER ==
[~2021-06-07] VITALS: Ht 170.2 cm; Wt 65.0 kg
[~2021-06-07 08:35] MED LIST changes: -B-11TAB PO; -LIDO2SO PO
[2021-06-07] MEDS: MULTIVITAMINS/MINERALS THERAP 1 TAB PO SCH (09:00)
[2021-06-07] MEDS: FOLIC ACID 1 MG TAB PO SCH (09:00)
[2021-06-07] MEDS: THIAMINE 100 MG TAB PO SCH ×2 (09:00→22:53)
[2021-06-07] MEDS ORDERED: levETIRAcetam 250MG TABLET (KEPPRA) PO ONE (09:05)
[2021-06-07 10:02] LABS: BASO % 0.3 % (0.0-1.0); EOS # 0.2 10^3/uL (0.0-0.5); EOS % 2.2 % (0.0-3.0); HEMATOCRIT 32.9 % (42.0-52.0); HEMOGLOBIN 10.1 g/dl (13.5-17.5); LYMPH # 0.5 10^3/uL (1.5-5.0); LYMPH % 4.3 % (24.0-44.0); MEAN CORPUSCULAR HEMOGLOBIN 24.9 pg (27.0-33.0); MEAN CORPUSCULAR HGB CONC 30.7 g/dl (32.0-36.5); MONO # 1.5 10^3/uL (0.0-0.8); MONO % 13.8 % (2.0-8.0); NEUTROPHILS # 8.7 10^3/uL (1.5-8.5); NEUTROPHILS % 78.9 % (36.0-66.0); PLATELET COUNT, AUTOMATED 203 10^3/uL (150-450); RED BLOOD COUNT 4.06 10^6/uL (4.30-6.10)
[2021-06-07 10:10] LABS: INR 1.26; PROTHROMBIN TIME 16.2 SECONDS (12.7-14.5)
[2021-06-07 10:11] LABS: PARTIAL THROMBOPLASTIN TIME 41.5 SECONDS (25.9-37.0)
[2021-06-07 10:37] LABS: OSMOLALITY SERUM 250 MOSM/KG (275-295)
[2021-06-07 11:00] LABS: ALBUMIN 3.4 GM/DL (3.2-5.2); ALT/SGPT 105 U/L (12-78); BILIRUBIN,DIRECT 0.4 MG/DL (0.0-0.2); BLOOD UREA NITROGEN 6 MG/DL (7-18); CALCIUM LEVEL 8.6 MG/DL (8.5-10.1); CARBON DIOXIDE LEVEL 21 MEQ/L (21-32); CHLORIDE LEVEL 87 MEQ/L (98-107); CREATININE FOR GFR 0.67 MG/DL (0.70-1.30); ETHYL ALCOHOL (ETHANOL) < 0.003 % (0.000-0.010); GLOMERULAR FILTRATION RATE > 60.0 (>60); GLUCOSE, FASTING 85 MG/DL (70-100); POTASSIUM SERUM 3.7 MEQ/L (3.5-5.1); SODIUM LEVEL 122 MEQ/L (136-145); TOTAL PROTEIN 6.9 GM/DL (6.4-8.2)
[2021-06-07 11:14] LABS: AMPHETAMINES LEVEL URINE NEGATIVE (NEGATIVE); BARBITURATES URINE NEGATIVE (NEGATIVE); BENZODIAZEPINES URINE NEGATIVE (NEGATIVE); CANNABINOIDS URINE POSITIVE (NEGATIVE); COCAINE METABOLITE URINE NEGATIVE (NEGATIVE); METHADONE URINE NEGATIVE (NEGATIVE); OPIATES URINE POSITIVE (NEGATIVE); PHENCYCLIDINE URINE NEGATIVE (NEGATIVE)
[2021-06-07 12:38] LABS: OSMOLALITY URINE 157 MOSM/KG (50-1400)
[2021-06-07 13:16] LABS: SODIUM,RANDOM URINE 20 MEQ/L
[2021-06-07] MEDS ORDERED: LORazepam 2 MG TAB PO PRN (13:45)
[2021-06-07] MEDS ORDERED: B-11TAB PO (14:02)
[2021-06-07] MEDS ORDERED: HOME MED LIST COMPLETE! XX SCH (14:05)
[2021-06-07 14:54] LABS: BLOOD UREA NITROGEN 5 MG/DL (7-18); CARBON DIOXIDE LEVEL 27 MEQ/L (21-32); CHLORIDE LEVEL 95 MEQ/L (98-107); CREATININE FOR GFR 0.47 MG/DL (0.70-1.30); GLOMERULAR FILTRATION RATE > 60.0 (>60); GLUCOSE, FASTING 95 MG/DL (70-100); POTASSIUM SERUM 3.7 MEQ/L (3.5-5.1); SODIUM LEVEL 129 MEQ/L (136-145)
[2021-06-07] MEDS ORDERED: TOLVAPTAN 7.5 MG HALF-TAB PO ONE (16:00)
[2021-06-07] MEDS ORDERED: LORazepam 2 MG/ML VIAL IV PRN (16:05)
[2021-06-07] MEDS ORDERED: NICOTINE 14 MG/24 HR TRANSDERMAL TD PRN (16:10)
[2021-06-07] MEDS ORDERED: LIDO2SO PO (16:34)
[2021-06-07] MEDS ORDERED: LIDOCAINE VISCOUS 2% SOLN 15ML UDC PO PRN (17:00)
[2021-06-07] MEDS: SUCRALFATE 1 GM TAB PO SCH ×2 (17:30→22:53)
[2021-06-07 20:05] LABS: BLOOD UREA NITROGEN 4 MG/DL (7-18); CALCIUM LEVEL 8.7 MG/DL (8.5-10.1); CARBON DIOXIDE LEVEL 27 MEQ/L (21-32); CHLORIDE LEVEL 97 MEQ/L (98-107); CREATININE FOR GFR 0.51 MG/DL (0.70-1.30); GLOMERULAR FILTRATION RATE > 60.0 (>60); GLUCOSE, FASTING 88 MG/DL (70-100); POTASSIUM SERUM 3.9 MEQ/L (3.5-5.1); SODIUM LEVEL 131 MEQ/L (136-145)
[2021-06-07] MEDS ORDERED: levETIRAcetam INJection 1,000 MG in D5W 100 ML IV SCH (21:00)
[2021-06-07] MEDS: CLARITHROMYCIN 250 MG TAB PO SCH (21:00)
[2021-06-07] MEDS: metroNIDAZOLE (FLAGYL) 500MG TABLET PO SCH (22:53)
[2021-06-07] MEDS: PANTOPRAZOLE 40MG TAB (PROTONIX) PO SCH (22:54)
[2021-06-07] MEDS: ESCITALOPRAM OXALATE 10 MG TAB (LEXAPRO) PO SCH (22:54)
[2021-06-08] VITALS (7 sets, daily range): BP systolic 106–134; BP diastolic 57–71
[2021-06-08 02:44] LABS: BLOOD UREA NITROGEN 5 MG/DL (7-18); CALCIUM LEVEL 8.4 MG/DL (8.5-10.1); CARBON DIOXIDE LEVEL 24 MEQ/L (21-32); CHLORIDE LEVEL 97 MEQ/L (98-107); CREATININE FOR GFR 0.53 MG/DL (0.70-1.30); GLOMERULAR FILTRATION RATE > 60.0 (>60); GLUCOSE, FASTING 98 MG/DL (70-100); POTASSIUM SERUM 3.5 MEQ/L (3.5-5.1); SODIUM LEVEL 130 MEQ/L (136-145)
[2021-06-08] MEDS ORDERED: COSYNTROPIN 0.25 MG/ML VIAL (J0834 PER 0.25MG) IV ONE (06:00)
[2021-06-08 08:06] LABS: BLOOD UREA NITROGEN 6 MG/DL (7-18); CALCIUM LEVEL 8.8 MG/DL (8.5-10.1); CARBON DIOXIDE LEVEL 27 MEQ/L (21-32); CHLORIDE LEVEL 97 MEQ/L (98-107); CREATININE FOR GFR 0.52 MG/DL (0.70-1.30); GLOMERULAR FILTRATION RATE > 60.0 (>60); GLUCOSE, FASTING 95 MG/DL (70-100); POTASSIUM SERUM 3.7 MEQ/L (3.5-5.1); SODIUM LEVEL 131 MEQ/L (136-145)
[2021-06-08] MEDS: FERROUS SULFATE 325MG TAB PO SCH (09:23)
[2021-06-08] MEDS: levETIRAcetam 250MG TABLET (KEPPRA) PO SCH ×2 (09:23→21:52)
[2021-06-08] MEDS: SODIUM CHLORIDE 1 GM TAB PO SCH ×3 (09:23→17:03)
[2021-06-08] MEDS: CLARITHROMYCIN 250 MG TAB PO SCH ×2 (09:23→21:51)
[2021-06-08] MEDS: metroNIDAZOLE (FLAGYL) 500MG TABLET PO SCH ×3 (09:24→21:52)
[2021-06-08] MEDS: SUCRALFATE 1 GM TAB PO SCH ×4 (09:24→21:52)
[2021-06-08] MEDS: FOLIC ACID 1 MG TAB PO SCH (09:24)
[2021-06-08] MEDS: MULTIVITAMINS/MINERALS THERAP 1 TAB PO SCH (09:24)
[2021-06-08] MEDS: PANTOPRAZOLE 40MG TAB (PROTONIX) PO SCH ×2 (09:24→21:52)
[2021-06-08] MEDS: THIAMINE 100 MG TAB PO SCH ×2 (09:25→21:52)
[2021-06-08] MEDS: oxyCODONE 5MG TAB PO PRN ×2 (12:32→18:28)
[2021-06-08] MEDS: GABAPENTIN 300 MG CAP PO SCH ×2 (12:36→21:51)
[2021-06-08] MEDS ORDERED: TOLVAPTAN 7.5 MG HALF-TAB PO ONE (13:00)
[2021-06-08 16:50] LABS: BLOOD UREA NITROGEN 5 MG/DL (7-18); CALCIUM LEVEL 8.9 MG/DL (8.5-10.1); CARBON DIOXIDE LEVEL 28 MEQ/L (21-32); CHLORIDE LEVEL 102 MEQ/L (98-107); CREATININE FOR GFR 0.46 MG/DL (0.70-1.30); GLOMERULAR FILTRATION RATE > 60.0 (>60); GLUCOSE, FASTING 112 MG/DL (70-100); POTASSIUM SERUM 3.8 MEQ/L (3.5-5.1); SODIUM LEVEL 136 MEQ/L (136-145)
[2021-06-08 19:57] LABS: BLOOD UREA NITROGEN 4 MG/DL (7-18); CALCIUM LEVEL 8.7 MG/DL (8.5-10.1); CARBON DIOXIDE LEVEL 25 MEQ/L (21-32); CHLORIDE LEVEL 104 MEQ/L (98-107); CREATININE FOR GFR 0.62 MG/DL (0.70-1.30); GLOMERULAR FILTRATION RATE > 60.0 (>60); GLUCOSE, FASTING 119 MG/DL (70-100); POTASSIUM SERUM 3.6 MEQ/L (3.5-5.1); SODIUM LEVEL 139 MEQ/L (136-145)
[2021-06-08] MEDS: ESCITALOPRAM OXALATE 10 MG TAB (LEXAPRO) PO SCH (21:52)
[2021-06-09 00:22] LABS: BLOOD UREA NITROGEN 2 MG/DL (7-18); CALCIUM LEVEL 8.5 MG/DL (8.5-10.1); CARBON DIOXIDE LEVEL 26 MEQ/L (21-32); CHLORIDE LEVEL 102 MEQ/L (98-107); CREATININE FOR GFR 0.56 MG/DL (0.70-1.30); GLOMERULAR FILTRATION RATE > 60.0 (>60); GLUCOSE, FASTING 133 MG/DL (70-100); POTASSIUM SERUM 3.4 MEQ/L (3.5-5.1); SODIUM LEVEL 134 MEQ/L (136-145)
[2021-06-09 02:00] VITALS: BP 111/67
[2021-06-09] MEDS ORDERED: COSYNTROPIN 0.25 MG/ML VIAL (J0834 PER 0.25MG) IV ONE (04:00)
[2021-06-09 06:00] VITALS: BP 113/67
[2021-06-09] MEDS ORDERED: SODI1TAB6 PO (07:25)
[2021-06-09] MEDS ORDERED: KEPP250T5 PO (07:25)
[2021-06-09] MEDS ORDERED: TOLVAPTAN 7.5 MG HALF-TAB PO ONE (07:25)
[2021-06-09] MEDS ORDERED: POTASSIUM CHLORIDE 10MEQ SR TABLET PO ONE (07:25)
[2021-06-09] MEDS: FERROUS SULFATE 325MG TAB PO SCH (08:21)
[2021-06-09] MEDS: GABAPENTIN 300 MG CAP PO SCH (08:21)
[2021-06-09 08:22] VITALS: BP 123/77
[2021-06-09] MEDS: MULTIVITAMINS/MINERALS THERAP 1 TAB PO SCH (08:22)
[2021-06-09] MEDS: SUCRALFATE 1 GM TAB PO SCH (08:22)
[2021-06-09] MEDS: PANTOPRAZOLE 40MG TAB (PROTONIX) PO SCH (08:22)
[2021-06-09] MEDS: SODIUM CHLORIDE 1 GM TAB PO SCH (08:22)
[2021-06-09] MEDS: levETIRAcetam 250MG TABLET (KEPPRA) PO SCH (08:22)
[2021-06-09] MEDS: FOLIC ACID 1 MG TAB PO SCH (08:22)
[2021-06-09] MEDS: CLARITHROMYCIN 250 MG TAB PO SCH (08:23)
[2021-06-09] MEDS: THIAMINE 100 MG TAB PO SCH (08:23)
[2021-06-09] MEDS: metroNIDAZOLE (FLAGYL) 500MG TABLET PO SCH (08:23)
[2021-06-09] MEDS ORDERED: LEVO750T13 PO (11:44)
[2021-06-09] MEDS ORDERED: LevoFLOXacin 750 MG TABLET PO ONE (11:45)
[2021-06-10] MEDS ORDERED: LevoFLOXacin 750 MG TABLET PO SCH (06:00)
== END 2021-06-09 11:14 | disposition home or self-care (01) | DRG 53 ==
LOC: EDBD 08:35 → M ED 08:35 → M ED INP 13:40 → M PCU 06-08 00:01 → M MSPAV 06-08 17:59
PROVIDERS: ADMIT General Practice; ATTEND General Practice
DX: G40.909 Epilepsy, unspecified, not intractable, without status epilepticus (principal); C10.9 Malignant neoplasm of oropharynx, unspecified; E22.2 Syndrome of inappropriate secretion of antidiuretic hormone; G62.9 Polyneuropathy, unspecified; F32.A Depression, unspecified; I10 Essential (primary) hypertension; D64.9 Anemia, unspecified; F10.10 Alcohol abuse, uncomplicated; F17.210 Nicotine dependence, cigarettes, uncomplicated; F41.9 Anxiety disorder, unspecified; Z79.2 Long term (current) use of antibiotics; Z79.899 Other long term (current) drug therapy; E87.6 Hypokalemia; Z88.1 Allergy status to other antibiotic agents; Z88.8 Allergy status to other drugs, medicaments and biological substances

== ENCOUNTER → 2021-06-14 | Outpatient (POV) | payer OTHER ==
[~2021-06-14] VITALS: Ht 165.1 cm; Wt 65.9 kg
[~2021-06-14] MED LIST changes: +B-11TAB PO; +KEPP250T5 PO; +LEVO750T13 PO; +LIDO2SO PO; +OXYC20TA2 PO; +SODI1TAB6 PO
[2021-06-14 08:35] VITALS: BP 125/78
== END ==
LOC: M IRPOV 08:18
PROVIDERS: ATTEND Radiology Diagnostic Radiology
DX: C09.9 Malignant neoplasm of tonsil, unspecified (principal); R63.4 Abnormal weight loss; Z79.899 Other long term (current) drug therapy; Z88.0 Allergy status to penicillin; Z88.1 Allergy status to other antibiotic agents; Z88.6 Allergy status to analgesic agent; Z88.8 Allergy status to other drugs, medicaments and biological substances

== ENCOUNTER → 2021-06-17 | Outpatient (CLI) | payer OTHER ==
[2021-06-17 14:47] LABS: BASO # 0.1 10^3/uL (0.0-0.2); BASO % 0.9 % (0.0-1.0); EOS # 0.4 10^3/uL (0.0-0.5); EOS % 5.7 % (0.0-3.0); HEMATOCRIT 40.1 % (42.0-52.0); HEMOGLOBIN 11.7 g/dl (13.5-17.5); LYMPH # 0.7 10^3/uL (1.5-5.0); LYMPH % 10.1 % (24.0-44.0); MEAN CORPUSCULAR HEMOGLOBIN 24.6 pg (27.0-33.0); MEAN CORPUSCULAR HGB CONC 29.2 g/dl (32.0-36.5); MEAN CORPUSCULAR VOLUME 84.2 fl (80.0-96.0); MONO # 1.3 10^3/uL (0.0-0.8); MONO % 19.6 % (2.0-8.0); NEUTROPHILS # 4.1 10^3/uL (1.5-8.5); NEUTROPHILS % 63.2 % (36.0-66.0); PLATELET COUNT, AUTOMATED 283 10^3/uL (150-450); RED BLOOD COUNT 4.76 10^6/uL (4.30-6.10); WHITE BLOOD COUNT 6.5 10^3/uL (4.0-10.0)
[2021-06-17 15:14] LABS: ALBUMIN 3.1 GM/DL (3.2-5.2); ALT/SGPT 38 U/L (12-78); BILIRUBIN,TOTAL 0.3 MG/DL (0.2-1.0); BLOOD UREA NITROGEN 4 MG/DL (7-18); C REACTIVE PROTEIN QUANTITATIV 0.31 MG/DL (0.00-0.30); CARBON DIOXIDE LEVEL 28 MEQ/L (21-32); CHLORIDE LEVEL 100 MEQ/L (98-107); CREATININE FOR GFR 0.62 MG/DL (0.70-1.30); FERRITIN 65 NG/ML (26-388); GLOMERULAR FILTRATION RATE > 60.0 (>60); GLUCOSE, FASTING 87 MG/DL (70-100); POTASSIUM SERUM 4.4 MEQ/L (3.5-5.1); SODIUM LEVEL 134 MEQ/L (136-145); TOTAL PROTEIN 6.7 GM/DL (6.4-8.2)
[2021-06-17 15:59] LABS: HEPATITIS C VIRUS ABY INDEX < 0.0 INDEX (<0.8); HIV 1&2 SCREEN CENTAUR NEGATIVE (NEGATIVE)
== END ==
LOC: M ONCR 13:19
PROVIDERS: ATTEND General Practice
DX: C10.8 Malignant neoplasm of overlapping sites of oropharynx (principal); R21 Rash and other nonspecific skin eruption; T36.3X5A Adverse effect of macrolides, initial encounter; Z88.1 Allergy status to other antibiotic agents
CPT/HCPCS: 36415; 80053; 82728; 85025; 86140; 86780; 86803; 87040; 87389; G0463

== ENCOUNTER → 2021-06-20 | Outpatient (RCR) | payer OTHER ==
[~2021-06-20] MED LIST changes: +MORP-69 PO; +PRED50TA PO; +TRIA1CR80 TOP
== END ==
LOC: M ONCR 11:29
PROVIDERS: ATTEND General Practice
DX: C10.8 Malignant neoplasm of overlapping sites of oropharynx (principal)

== ENCOUNTER → 2021-06-20 | Outpatient (CLI) | payer OTHER ==
[~2021-06-20] MED LIST changes: +GLUCAGON INJ 1MG VIAL ONE; +ISOVUE-300 61% 50ML VIAL ONE; +LIDOCAINE 1% MDV 20ML VIAL ONE; +LIDOCAINE 2% JELLY 5ML TUBE ONE; +MIDAZOLAM INJ 2MG/2ML VIAL (J2250 PER 1MG) ONE; +NS 1,000 ML IV SCH; +diphenhydrAMINE 50MG/ML VIAL (J1200) ONE; +fentaNYL 100 MCG/2 ML INJECTION ONE; +metroNIDAZOLE 500 MG in IV 1 EA IV ONE
[2021-06-20 11:10] VITALS: BP 102/57
== END ==
LOC: M IRPRO 07:18
PROVIDERS: ATTEND Radiology Diagnostic Radiology
DX: C76.0 Malignant neoplasm of head, face and neck (principal)
CPT/HCPCS: 49440; 99152; 99153; C1729; C1769; C1887; C1894; J1200; J1610; J2250; J3010; Q9967

== ENCOUNTER → 2021-07-18 | Outpatient (RCR) | payer OTHER ==
[~2021-07-18] MED LIST changes: +DIAZ2TAB PO; +FLUC100T3 PO; -GLUCAGON INJ 1MG VIAL ONE; +HALO1TAB PO; +HYDR4TAB PO; +HYDR8TAB PO; -ISOVUE-300 61% 50ML VIAL ONE; +LIDO1CRE42 TOP; -LIDOCAINE 1% MDV 20ML VIAL ONE; -LIDOCAINE 2% JELLY 5ML TUBE ONE; -MIDAZOLAM INJ 2MG/2ML VIAL (J2250 PER 1MG) ONE; +MUCI600T31 PO; -NS 1,000 ML IV SCH; +ONDA-84 PO; +PRED5TA PO; +PROC10TA5 PO; -diphenhydrAMINE 50MG/ML VIAL (J1200) ONE; -fentaNYL 100 MCG/2 ML INJECTION ONE; -metroNIDAZOLE 500 MG in IV 1 EA IV ONE
== END ==
LOC: M ONCR 06-30 10:00
PROVIDERS: ATTEND General Practice
DX: C10.8 Malignant neoplasm of overlapping sites of oropharynx (principal)

== ENCOUNTER → 2021-08-11 | Outpatient (REF) | payer OTHER ==
[~2021-08-11] MED LIST changes: +ALBU8.5H INH; +FENT1PAT25 TD; +MAGICMW SSP
== END ==
LOC: M SFHCDERM 17:14
PROVIDERS: ATTEND Physician Assistant
DX: L58.9 Radiodermatitis, unspecified (principal)

== ENCOUNTER → 2021-08-18 | Outpatient (RCR) | payer OTHER ==
[~2021-08-18] MED LIST changes: +DEXAMETHASONE IV ONE; +NS 1,000 ML IV ONE
== END ==
LOC: M ONCR 07-19 12:54
PROVIDERS: ATTEND General Practice
DX: C10.8 Malignant neoplasm of overlapping sites of oropharynx (principal)

== ENCOUNTER 2021-08-19 19:47 | Emergency (ER) | payer OTHER ==
[~2021-08-19] VITALS: Ht 165.1 cm; Wt 57.5 kg
[~2021-08-19 19:47] MED LIST changes: -DEXAMETHASONE IV ONE; -NS 1,000 ML IV ONE
[2021-08-19 19:49] VITALS: BP 109/69
== END 2021-08-19 21:14 | disposition home or self-care (01) ==
LOC: M ED 19:47
DX: K94.23 Gastrostomy malfunction (principal); I10 Essential (primary) hypertension; K21.9 Gastro-esophageal reflux disease without esophagitis; R56.9 Unspecified convulsions; F32.9 Major depressive disorder, single episode, unspecified; F41.9 Anxiety disorder, unspecified; C09.9 Malignant neoplasm of tonsil, unspecified; F17.200 Nicotine dependence, unspecified, uncomplicated; L59.8 Other specified disorders of the skin and subcutaneous tissue related to radiation; Z79.899 Other long term (current) drug therapy; Z88.0 Allergy status to penicillin; Z88.1 Allergy status to other antibiotic agents; Z88.6 Allergy status to analgesic agent; Z88.8 Allergy status to other drugs, medicaments and biological substances

== ENCOUNTER 2021-08-22 08:25 | Outpatient (RCR) | payer OTHER ==
[2021-08-30] MEDS ORDERED: LIDO2SO PO (13:37)
[2021-09-21] MEDS ORDERED: DIAZ2TAB PO (12:53)
[2021-09-21] MEDS ORDERED: PROC10TA5 PO (12:53)
[2021-09-21] MEDS ORDERED: TRIA1CR80 TOP (12:53)
[2021-09-21] MEDS ORDERED: ALBU8.5H INH (12:53)
[2021-09-21] MEDS ORDERED: FLUC100T3 PO (12:53)
== END 2021-09-17 ==
LOC: M ONCR 08:25
PROVIDERS: ATTEND General Practice
DX: C10.8 Malignant neoplasm of overlapping sites of oropharynx (principal)

== ENCOUNTER → 2021-08-30 | Outpatient (CLI) | payer OTHER | LOC: M ONCR 12:07 | PROVIDERS: ATTEND General Practice | DX: C10.8 Malignant neoplasm of overlapping sites of oropharynx (principal); Z93.1 Gastrostomy status ==

== ENCOUNTER → 2021-09-21 | Outpatient (CLI) | payer OTHER | LOC: M ONCR 10:34 | PROVIDERS: ATTEND General Practice | DX: Z08 Encounter for follow-up examination after completed treatment for malignant neoplasm (principal); B37.0 Candidal stomatitis; R43.2 Parageusia; K08.89 Other specified disorders of teeth and supporting structures; Z79.899 Other long term (current) drug therapy; Z92.21 Personal history of antineoplastic chemotherapy; Z92.3 Personal history of irradiation; Z79.52 Long term (current) use of systemic steroids; Z85.818 Personal history of malignant neoplasm of other sites of lip, oral cavity, and pharynx ==

== ENCOUNTER → 2021-10-28 | Outpatient (CLI) | payer MEDICAID, OTHER ==
[~2021-10-28] MED LIST changes: +DEXA2TA PO; +LORA2TAB14 PO; +SILD20TA11 PO
== END ==
LOC: M ONCR 13:21
PROVIDERS: ATTEND General Practice
DX: J04.30 Supraglottitis, unspecified, without obstruction (principal); R13.10 Dysphagia, unspecified; B37.0 Candidal stomatitis; Z79.899 Other long term (current) drug therapy

== ENCOUNTER → 2021-11-28 | Outpatient (CLI) | payer OTHER | LOC: M ONCR 08:36 | PROVIDERS: ATTEND General Practice | DX: Z08 Encounter for follow-up examination after completed treatment for malignant neoplasm (principal); C09.9 Malignant neoplasm of tonsil, unspecified; R07.0 Pain in throat; R13.10 Dysphagia, unspecified; F17.210 Nicotine dependence, cigarettes, uncomplicated; Z92.3 Personal history of irradiation; Z88.1 Allergy status to other antibiotic agents; Z91.048 Other nonmedicinal substance allergy status; Z88.8 Allergy status to other drugs, medicaments and biological substances; Z88.6 Allergy status to analgesic agent; Z79.51 Long term (current) use of inhaled steroids; Z79.891 Long term (current) use of opiate analgesic; Z79.899 Other long term (current) drug therapy; Z92.21 Personal history of antineoplastic chemotherapy; Z88.0 Allergy status to penicillin; Z93.1 Gastrostomy status ==

== ENCOUNTER → 2021-12-09 | Outpatient (CLI) | payer OTHER ==
[~2021-12-09] MED LIST changes: +FENT100D25 TOP
== END ==
LOC: M ONCR 09:34
PROVIDERS: ATTEND General Practice
DX: R21 Rash and other nonspecific skin eruption (principal)

== ENCOUNTER → 2022-01-09 | Outpatient (CLI) | payer OTHER ==
[~2022-01-09] MED LIST changes: +GABA600T4 PEG; +LEVO1TAB40 PO; -LEVO750T13 PO
== END ==
LOC: M PLARAD 07:36
PROVIDERS: ATTEND General Practice
DX: C10.8 Malignant neoplasm of overlapping sites of oropharynx (principal)
CPT/HCPCS: 78815; A9552

== ENCOUNTER 2022-01-12 13:07 | Outpatient (RCR) | payer OTHER ==
[~2022-01-12 13:07] MED LIST changes: -METH5TA PO; -NYST50SS PO
[2022-01-12] MEDS ORDERED: METH5TA PO (16:20)
[2022-01-13] MEDS ORDERED: HYDR8TAB PO (10:20)
[2022-01-17] MEDS ORDERED: DEXA2TA PO (09:49)
[2022-01-17] MEDS ORDERED: NYST50SS PO (10:22)
[2022-01-20] MEDS ORDERED: METH5TA PO (16:23)
== END 2022-01-18 ==
LOC: M ST 13:07
PROVIDERS: ATTEND General Practice
DX: C10.8 Malignant neoplasm of overlapping sites of oropharynx (principal)

== ENCOUNTER → 2022-01-12 | Outpatient (CLI) | payer OTHER ==
[~2022-01-12] VITALS: Ht 165.1 cm; Wt 52.4 kg
[~2022-01-12] MED LIST changes: +METH5TA PO; +NYST50SS PO
[2022-01-12 15:23] VITALS: BP 126/73
== END ==
LOC: M PAL 12:54
PROVIDERS: ATTEND Nurse Practitioner Adult Health
DX: C10.9 Malignant neoplasm of oropharynx, unspecified (principal); G89.3 Neoplasm related pain (acute) (chronic); R63.4 Abnormal weight loss; R19.7 Diarrhea, unspecified; Z93.1 Gastrostomy status; M54.2 Cervicalgia; M54.6 Pain in thoracic spine; R11.0 Nausea; Z51.5 Encounter for palliative care; Z66 Do not resuscitate; I10 Essential (primary) hypertension; F32.A Depression, unspecified; F41.9 Anxiety disorder, unspecified; F10.10 Alcohol abuse, uncomplicated; B96.81 Helicobacter pylori [H. pylori] as the cause of diseases classified elsewhere; K27.9 Peptic ulcer, site unspecified, unspecified as acute or chronic, without hemorrhage or perforation; K29.50 Unspecified chronic gastritis without bleeding; F17.210 Nicotine dependence, cigarettes, uncomplicated; Z92.3 Personal history of irradiation; Z88.1 Allergy status to other antibiotic agents; Z88.0 Allergy status to penicillin; Z88.6 Allergy status to analgesic agent; Z88.8 Allergy status to other drugs, medicaments and biological substances; Z79.899 Other long term (current) drug therapy; Z79.891 Long term (current) use of opiate analgesic; Z79.51 Long term (current) use of inhaled steroids; Z92.21 Personal history of antineoplastic chemotherapy; R13.10 Dysphagia, unspecified

== ENCOUNTER → 2022-01-17 | Outpatient (CLI) | payer OTHER ==
[~2022-01-17] MED LIST changes: +METH5TA PO; +NYST50SS PO
== END ==
LOC: M ONCR 07:57
PROVIDERS: ATTEND General Practice
DX: C09.9 Malignant neoplasm of tonsil, unspecified (principal); R13.10 Dysphagia, unspecified; F17.210 Nicotine dependence, cigarettes, uncomplicated; Z88.1 Allergy status to other antibiotic agents; Z91.048 Other nonmedicinal substance allergy status; Z88.8 Allergy status to other drugs, medicaments and biological substances; Z88.6 Allergy status to analgesic agent; Z79.51 Long term (current) use of inhaled steroids; Z79.891 Long term (current) use of opiate analgesic; Z79.899 Other long term (current) drug therapy; Z92.21 Personal history of antineoplastic chemotherapy; Z92.3 Personal history of irradiation; Z88.0 Allergy status to penicillin; Z93.1 Gastrostomy status
CPT/HCPCS: 31575; G0463

== ENCOUNTER 2022-02-02 11:30 | Outpatient (RCR) | payer OTHER ==
[~2022-02-02 11:30] MED LIST changes: -BARIUM SULFATE 700 MG TABLET (E-Z-DISK) As Ordered ONE; -E-Z-PAQUE 96% w/w SUSP 176GM BTL As Ordered ONE; -VARIBAR NECTAR 40% w/v 240ML SUSP BTL As Ordered ONE; -VARIBAR PUDDING 40% w/v 230ML TUBE As Ordered ONE
[2022-02-07] MEDS ORDERED: LIDO2SO PO (08:03)
[2022-02-08] MEDS ORDERED: FENT100D25 TOP (06:48)
[2022-02-08] MEDS ORDERED: DIAZ2TAB PO (06:48)
[2022-02-08] MEDS ORDERED: HYDR8TAB PO (06:48)
[2022-02-09] MEDS ORDERED: DIAZ2TAB PO (10:44)
[2022-02-10] MEDS ORDERED: LIDO2SOL17 PO (14:36)
== END 2022-02-17 ==
LOC: M ST 11:30
PROVIDERS: ATTEND General Practice
DX: C10.8 Malignant neoplasm of overlapping sites of oropharynx (principal)

== ENCOUNTER → 2022-02-02 | Outpatient (CLI) | payer OTHER ==
[~2022-02-02] MED LIST changes: +BARIUM SULFATE 700 MG TABLET (E-Z-DISK) As Ordered ONE; +E-Z-PAQUE 96% w/w SUSP 176GM BTL As Ordered ONE; +VARIBAR NECTAR 40% w/v 240ML SUSP BTL As Ordered ONE; +VARIBAR PUDDING 40% w/v 230ML TUBE As Ordered ONE
== END ==
LOC: M RAD 10:32
PROVIDERS: ATTEND General Practice
DX: C10.8 Malignant neoplasm of overlapping sites of oropharynx (principal)

== ENCOUNTER → 2022-02-09 | Outpatient (CLI) | payer OTHER | LOC: M PAL 09:02 | PROVIDERS: ATTEND Nurse Practitioner Family | DX: C10.9 Malignant neoplasm of oropharynx, unspecified (principal); Z93.1 Gastrostomy status; R07.0 Pain in throat; F41.9 Anxiety disorder, unspecified; Z88.1 Allergy status to other antibiotic agents; Z88.0 Allergy status to penicillin; Z88.6 Allergy status to analgesic agent; Z88.8 Allergy status to other drugs, medicaments and biological substances; Z79.899 Other long term (current) drug therapy; Z79.891 Long term (current) use of opiate analgesic; Z79.51 Long term (current) use of inhaled steroids ==

== ENCOUNTER 2022-02-14 03:15 | Emergency (ER) | payer OTHER ==
[2022-02-14 03:22] VITALS: BP 110/68
== END 2022-02-14 03:50 | disposition home or self-care (01) ==
LOC: M ED 03:15 → EDBD 03:15 → EDSEX 03:15 → M ED 03:50
DX: T85.528A Displacement of other gastrointestinal prosthetic devices, implants and grafts, initial encounter (principal); C32.1 Malignant neoplasm of supraglottis; Z92.21 Personal history of antineoplastic chemotherapy; Z79.899 Other long term (current) drug therapy; Z88.0 Allergy status to penicillin; Z88.1 Allergy status to other antibiotic agents; Z88.6 Allergy status to analgesic agent; Z88.8 Allergy status to other drugs, medicaments and biological substances

== ENCOUNTER → 2022-02-16 | Outpatient (CLI) | payer OTHER | LOC: M ONCR 08:57 | PROVIDERS: ATTEND General Practice | DX: C09.0 Malignant neoplasm of tonsillar fossa (principal); F17.210 Nicotine dependence, cigarettes, uncomplicated; R64 Cachexia; Z79.51 Long term (current) use of inhaled steroids; Z79.52 Long term (current) use of systemic steroids; Z79.891 Long term (current) use of opiate analgesic; Z88.0 Allergy status to penicillin; Z88.1 Allergy status to other antibiotic agents; Z88.6 Allergy status to analgesic agent; Z88.8 Allergy status to other drugs, medicaments and biological substances; Z91.048 Other nonmedicinal substance allergy status; Z92.21 Personal history of antineoplastic chemotherapy; Z92.3 Personal history of irradiation; Z93.1 Gastrostomy status ==

== ENCOUNTER 2022-02-22 15:52 | Inpatient (IN) | payer OTHER ==
[~2022-02-22] VITALS: Ht 170.2 cm; Wt 48.3 kg
[2022-02-22] MEDS ORDERED: NS 1,000 ML IV ONE ×2 (16:15→17:30)
[2022-02-22 16:43] LABS: BASO % 0.4 % (0.0-1.0); EOS # 0.1 10^3/uL (0.0-0.5); EOS % 1.7 % (0.0-3.0); HEMATOCRIT 35.1 % (42.0-52.0); HEMOGLOBIN 11.2 g/dl (13.5-17.5); LYMPH % 13.4 % (24.0-44.0); MEAN CORPUSCULAR HEMOGLOBIN 26.7 pg (27.0-33.0); MEAN CORPUSCULAR HGB CONC 31.9 g/dl (32.0-36.5); MEAN CORPUSCULAR VOLUME 83.8 fl (80.0-96.0); MONO # 0.8 10^3/uL (0.0-0.8); MONO % 9.7 % (2.0-8.0); NEUTROPHILS # 5.8 10^3/uL (1.5-8.5); NEUTROPHILS % 74.4 % (36.0-66.0); PLATELET COUNT, AUTOMATED 227 10^3/uL (150-450); RED BLOOD COUNT 4.19 10^6/uL (4.30-6.10); WHITE BLOOD COUNT 7.8 10^3/uL (4.0-10.0)
[2022-02-22 17:12] LABS: INR 1.09; PROTHROMBIN TIME 14.5 SECONDS (12.7-14.5)
[2022-02-22 17:24] LABS: ALT/SGPT 24 U/L (12-78); BILIRUBIN,DIRECT 0.1 MG/DL (0.0-0.2); BILIRUBIN,TOTAL 0.2 MG/DL (0.2-1.0); BLOOD UREA NITROGEN 25 MG/DL (7-18); CALCIUM LEVEL 9.1 MG/DL (8.5-10.1); CARBON DIOXIDE LEVEL 27 MEQ/L (21-32); CHLORIDE LEVEL 98 MEQ/L (98-107); CREATININE FOR GFR 0.44 MG/DL (0.70-1.30); GLOMERULAR FILTRATION RATE > 60.0 (>60); GLUCOSE, FASTING 96 MG/DL (70-100); POTASSIUM SERUM 3.7 MEQ/L (3.5-5.1); SODIUM LEVEL 133 MEQ/L (136-145); TOTAL PROTEIN 6.6 GM/DL (6.4-8.2)
[2022-02-22] MEDS ORDERED: ISOVUE-370 76% 100ML VIAL As Ordered ONE (17:33)
[2022-02-22] MEDS ORDERED: HYDROmorphone 2 MG TAB PEG STA (17:59)
[2022-02-22 20:39] LABS: CK-MB VALUE MASS < 1.0 NG/ML (<3.6); CPK CREATINE PHOSPHOKINASE 18 U/L (39-308); MB/CK RELATIVE INDEX 5.56 (< OR =4)
[2022-02-22] MEDS ORDERED: LevoFLOXacin IV 750 MG in IV 1 EA IV ONE (22:00)
[2022-02-22] MEDS ORDERED: MAGIC MOUTHWASH PO (23:17)
[2022-02-22] MEDS ORDERED: HOME MED LIST COMPLETE! XX SCH (23:20)
[2022-02-22] MEDS ORDERED: ONDANSETRON 4MG TAB PEG PRN (23:35)
[2022-02-22] MEDS ORDERED: PROCHLORPERAZINE 5MG TAB PEG PRN (23:35)
[2022-02-23] MEDS: LIDOCAINE VISCOUS 2% SOLN 15ML UDC PO SCH ×4 (00:23→20:26)
[2022-02-23] MEDS: diazePAM 2 MG TAB PEG PRN ×2 (00:24→09:49)
[2022-02-23] MEDS: ESCITALOPRAM OXALATE 10 MG TAB (LEXAPRO) PEG SCH ×2 (00:24→20:26)
[2022-02-23 07:13] LABS: BASO % 0.5 % (0.0-1.0); EOS # 0.1 10^3/uL (0.0-0.5); EOS % 2.7 % (0.0-3.0); HEMATOCRIT 28.6 % (42.0-52.0); LYMPH # 0.4 10^3/uL (1.5-5.0); MEAN CORPUSCULAR HEMOGLOBIN 27.2 pg (27.0-33.0); MEAN CORPUSCULAR HGB CONC 31.8 g/dl (32.0-36.5); MEAN CORPUSCULAR VOLUME 85.4 fl (80.0-96.0); MONO # 0.4 10^3/uL (0.0-0.8); MONO % 9.8 % (2.0-8.0); NEUTROPHILS # 3.1 10^3/uL (1.5-8.5); NEUTROPHILS % 76.8 % (36.0-66.0); PLATELET COUNT, AUTOMATED 147 10^3/uL (150-450); RED BLOOD COUNT 3.35 10^6/uL (4.30-6.10); WHITE BLOOD COUNT 4.1 10^3/uL (4.0-10.0)
[2022-02-23 07:25] LABS: HEMOGLOBIN 9.1 g/dl (13.5-17.5)
[2022-02-23 07:41] LABS: BLOOD UREA NITROGEN 13 MG/DL (7-18); CALCIUM LEVEL 8.6 MG/DL (8.5-10.1); CARBON DIOXIDE LEVEL 27 MEQ/L (21-32); CHLORIDE LEVEL 103 MEQ/L (98-107); CREATININE FOR GFR 0.32 MG/DL (0.70-1.30); GLOMERULAR FILTRATION RATE > 60.0 (>60); GLUCOSE, FASTING 85 MG/DL (70-100); SODIUM LEVEL 135 MEQ/L (136-145)
[2022-02-23] MEDS: ENOXAPARIN 40MG/0.4ML SYRINGE (J1650 PER 10MG) SC SCH (09:48)
[2022-02-23] MEDS: THIAMINE 100 MG TAB PEG SCH (09:49)
[2022-02-23] MEDS: GABAPENTIN 300 MG CAP PEG SCH ×3 (09:49→20:26)
[2022-02-23] MEDS: PANTOPRAZOLE 40MG TAB (PROTONIX) PO SCH ×2 (09:49→20:26)
[2022-02-23] MEDS: FOLIC ACID 1MG TAB PEG SCH (09:49)
[2022-02-23] MEDS: HYDROmorphone 4MG TABLET PO PRN ×3 (09:59→20:30)
[2022-02-23] MEDS: ALBUTEROL 90 MCG/ACT 8GM HFA INHALER INH PRN (10:01)
[2022-02-23] MEDS: NICOTINE 7 MG/24 HR TRANSDERMAL TD SCH (11:03)
[2022-02-23] MEDS: METHADONE 5MG TAB PEG SCH (12:54)
[2022-02-23] MEDS: fentaNYL 100 MCG/HR PATCH TOP SCH (12:55)
[2022-02-23] MEDS ORDERED: FENTANYL REMOVAL DOCUMENTATION MISC XX SCH (13:00)
[2022-02-23] MEDS ORDERED: DEXTROSE 50% 50 ML SYRINGE IV PRN (17:05)
[2022-02-23] MEDS ORDERED: GLUCAGON INJ 1MG VIAL SC PRN (17:05)
[2022-02-23] MEDS ORDERED: GLUCOSE 4GM CHEW TABLET PO PRN (17:05)
[2022-02-23 17:16] VITALS: BP 123/83
[2022-02-23 18:00] VITALS: O2SAT 95
[2022-02-23] MEDS: INSULIN LISPRO (NovoLOG) PER UNIT SC SCH ×2 (18:00→23:05)
[2022-02-23 19:00] VITALS: O2SAT 95
[2022-02-23 20:45] VITALS: BP 103/63
[2022-02-24] VITALS (16 sets, daily range): BP systolic 95–116; BP diastolic 53–69; O2SAT 90–93
[2022-02-24] MEDS: HYDROmorphone 4MG TABLET PO PRN ×6 (00:40→20:52)
[2022-02-24] MEDS: INSULIN LISPRO (NovoLOG) PER UNIT SC SCH ×3 (05:07→17:39)
[2022-02-24] MEDS: PANTOPRAZOLE 40MG TAB (PROTONIX) PO SCH ×2 (09:07→20:50)
[2022-02-24] MEDS: THIAMINE 100 MG TAB PEG SCH (09:07)
[2022-02-24] MEDS: FOLIC ACID 1MG TAB PEG SCH (09:07)
[2022-02-24] MEDS: GABAPENTIN 300 MG CAP PEG SCH ×3 (09:07→20:50)
[2022-02-24] MEDS: ENOXAPARIN 40MG/0.4ML SYRINGE (J1650 PER 10MG) SC SCH (09:21)
[2022-02-24] MEDS: NICOTINE 7 MG/24 HR TRANSDERMAL TD SCH (09:21)
[2022-02-24] MEDS: LIDOCAINE VISCOUS 2% SOLN 15ML UDC PO SCH ×3 (09:21→23:13)
[2022-02-24] MEDS: diazePAM 2 MG TAB PEG PRN ×2 (09:28→23:12)
[2022-02-24] MEDS: LevoFLOXacin IV 750 MG in IV 1 EA IV SCH (12:28)
[2022-02-24] MEDS: METHADONE 5MG TAB PEG SCH (12:28)
[2022-02-24] MEDS: ALBUTEROL 90 MCG/ACT 8GM HFA INHALER INH PRN (18:14)
[2022-02-24] MEDS: ESCITALOPRAM OXALATE 10 MG TAB (LEXAPRO) PEG SCH (20:50)
[2022-02-25] MEDS: HYDROmorphone 4MG TABLET PO PRN ×6 (01:13→21:53)
[2022-02-25 04:20] VITALS: BP 105/62
[2022-02-25] MEDS: INSULIN LISPRO (NovoLOG) PER UNIT SC SCH ×5 (06:00→23:36)
[2022-02-25 06:10] LABS: BASO % 0.5 % (0.0-1.0); EOS # 0.1 10^3/uL (0.0-0.5); EOS % 1.8 % (0.0-3.0); HEMATOCRIT 29.7 % (42.0-52.0); LYMPH # 0.5 10^3/uL (1.5-5.0); LYMPH % 9.8 % (24.0-44.0); MEAN CORPUSCULAR HEMOGLOBIN 26.5 pg (27.0-33.0); MEAN CORPUSCULAR HGB CONC 30.3 g/dl (32.0-36.5); MEAN CORPUSCULAR VOLUME 87.6 fl (80.0-96.0); MONO # 0.5 10^3/uL (0.0-0.8); MONO % 8.4 % (2.0-8.0); NEUTROPHILS # 4.4 10^3/uL (1.5-8.5); NEUTROPHILS % 79.1 % (36.0-66.0); PLATELET COUNT, AUTOMATED 148 10^3/uL (150-450); RED BLOOD COUNT 3.39 10^6/uL (4.30-6.10); WHITE BLOOD COUNT 5.5 10^3/uL (4.0-10.0)
[2022-02-25 06:40] LABS: BLOOD UREA NITROGEN 13 MG/DL (7-18); CALCIUM LEVEL 8.4 MG/DL (8.5-10.1); CARBON DIOXIDE LEVEL 29 MEQ/L (21-32); CHLORIDE LEVEL 98 MEQ/L (98-107); CREATININE FOR GFR 0.34 MG/DL (0.70-1.30); GLOMERULAR FILTRATION RATE > 60.0 (>60); GLUCOSE, FASTING 140 MG/DL (70-100); POTASSIUM SERUM 3.4 MEQ/L (3.5-5.1); SODIUM LEVEL 132 MEQ/L (136-145)
[2022-02-25 07:50] VITALS: BP 102/60
[2022-02-25] MEDS: LIDOCAINE VISCOUS 2% SOLN 15ML UDC PO SCH ×3 (09:33→21:53)
[2022-02-25] MEDS: FOLIC ACID 1MG TAB PEG SCH (09:34)
[2022-02-25] MEDS: diazePAM 2 MG TAB PEG PRN ×2 (09:34→22:06)
[2022-02-25] MEDS: NICOTINE 7 MG/24 HR TRANSDERMAL TD SCH (09:34)
[2022-02-25] MEDS: PANTOPRAZOLE 40MG TAB (PROTONIX) PO SCH ×2 (09:35→21:53)
[2022-02-25] MEDS: GABAPENTIN 300 MG CAP PEG SCH ×3 (09:35→21:53)
[2022-02-25] MEDS: THIAMINE 100 MG TAB PEG SCH (09:35)
[2022-02-25] MEDS: ENOXAPARIN 40MG/0.4ML SYRINGE (J1650 PER 10MG) SC SCH (09:35)
[2022-02-25 12:00] VITALS: BP 98/59
[2022-02-25] MEDS: LevoFLOXacin IV 750 MG in IV 1 EA IV SCH (13:20)
[2022-02-25] MEDS: METHADONE 5MG TAB PEG SCH (13:20)
[2022-02-25 16:00] VITALS: BP 103/60
[2022-02-25 19:36] VITALS: BP 106/72
[2022-02-25] MEDS: ESCITALOPRAM OXALATE 10 MG TAB (LEXAPRO) PEG SCH (21:53)
[2022-02-25 23:25] VITALS: BP 113/73
[2022-02-26] MEDS: HYDROmorphone 4MG TABLET PO PRN ×5 (01:56→19:30)
[2022-02-26 03:33] VITALS: BP 101/72
[2022-02-26] MEDS: INSULIN LISPRO (NovoLOG) PER UNIT SC SCH ×3 (06:00→17:53)
[2022-02-26 06:20] LABS: BASO % 0.4 % (0.0-1.0); EOS # 0.1 10^3/uL (0.0-0.5); EOS % 1.4 % (0.0-3.0); HEMATOCRIT 30.5 % (42.0-52.0); HEMOGLOBIN 9.4 g/dl (13.5-17.5); LYMPH # 0.5 10^3/uL (1.5-5.0); LYMPH % 9.5 % (24.0-44.0); MEAN CORPUSCULAR HEMOGLOBIN 27.1 pg (27.0-33.0); MEAN CORPUSCULAR HGB CONC 30.8 g/dl (32.0-36.5); MEAN CORPUSCULAR VOLUME 87.9 fl (80.0-96.0); MONO # 0.5 10^3/uL (0.0-0.8); MONO % 8.3 % (2.0-8.0); NEUTROPHILS # 4.5 10^3/uL (1.5-8.5); PLATELET COUNT, AUTOMATED 143 10^3/uL (150-450); RED BLOOD COUNT 3.47 10^6/uL (4.30-6.10); WHITE BLOOD COUNT 5.6 10^3/uL (4.0-10.0)
[2022-02-26 06:56] LABS: BLOOD UREA NITROGEN 14 MG/DL (7-18); CALCIUM LEVEL 9.2 MG/DL (8.5-10.1); CARBON DIOXIDE LEVEL 30 MEQ/L (21-32); CHLORIDE LEVEL 100 MEQ/L (98-107); CREATININE FOR GFR 0.43 MG/DL (0.70-1.30); GLOMERULAR FILTRATION RATE > 60.0 (>60); GLUCOSE, FASTING 130 MG/DL (70-100); POTASSIUM SERUM 3.6 MEQ/L (3.5-5.1); SODIUM LEVEL 135 MEQ/L (136-145)
[2022-02-26 08:29] VITALS: BP 121/81
[2022-02-26] MEDS ORDERED: IPRATROPIUM 0.5MG/ALBUTEROL 2.5MG INH SOL UD 3ML (DUONEB) NEB PRN (08:55)
[2022-02-26] MEDS: FOLIC ACID 1MG TAB PEG SCH (09:20)
[2022-02-26] MEDS: THIAMINE 100 MG TAB PEG SCH (09:20)
[2022-02-26] MEDS: PANTOPRAZOLE 40MG TAB (PROTONIX) PO SCH ×2 (09:20→20:35)
[2022-02-26] MEDS: GABAPENTIN 300 MG CAP PEG SCH ×3 (09:20→20:35)
[2022-02-26] MEDS: diazePAM 2 MG TAB PEG PRN ×2 (09:20→20:39)
[2022-02-26] MEDS: LIDOCAINE VISCOUS 2% SOLN 15ML UDC PO SCH ×3 (09:21→20:40)
[2022-02-26] MEDS: NICOTINE 7 MG/24 HR TRANSDERMAL TD SCH (09:21)
[2022-02-26] MEDS: ENOXAPARIN 40MG/0.4ML SYRINGE (J1650 PER 10MG) SC SCH (09:21)
[2022-02-26] MEDS: IPRATROPIUM 0.5MG/ALBUTEROL 2.5MG INH SOL UD 3ML (DUONEB) NEB SCH ×3 (09:37→20:57)
[2022-02-26] MEDS: LevoFLOXacin IV 750 MG in IV 1 EA IV SCH (10:48)
[2022-02-26] MEDS: METHADONE 5MG TAB PEG SCH (13:35)
[2022-02-26] MEDS: fentaNYL 100 MCG/HR PATCH TOP SCH (13:35)
[2022-02-26 16:00] VITALS: BP 105/64
[2022-02-26 19:36] VITALS: BP 110/67
[2022-02-26] MEDS: ESCITALOPRAM OXALATE 10 MG TAB (LEXAPRO) PEG SCH (20:35)
[2022-02-27] MEDS: HYDROmorphone 4MG TABLET PO PRN ×3 (00:30→09:14)
[2022-02-27] MEDS: IPRATROPIUM 0.5MG/ALBUTEROL 2.5MG INH SOL UD 3ML (DUONEB) NEB SCH ×2 (02:05→07:43)
[2022-02-27] MEDS: INSULIN LISPRO (NovoLOG) PER UNIT SC SCH ×2 (05:04)
[2022-02-27 05:59] LABS: BASO % 0.3 % (0.0-1.0); EOS # 0.1 10^3/uL (0.0-0.5); HEMATOCRIT 27.9 % (42.0-52.0); HEMOGLOBIN 8.9 g/dl (13.5-17.5); LYMPH # 0.4 10^3/uL (1.5-5.0); LYMPH % 6.4 % (24.0-44.0); MEAN CORPUSCULAR HEMOGLOBIN 27.7 pg (27.0-33.0); MEAN CORPUSCULAR HGB CONC 31.9 g/dl (32.0-36.5); MEAN CORPUSCULAR VOLUME 86.9 fl (80.0-96.0); MONO # 0.7 10^3/uL (0.0-0.8); MONO % 9.9 % (2.0-8.0); NEUTROPHILS # 5.5 10^3/uL (1.5-8.5); NEUTROPHILS % 81.8 % (36.0-66.0); PLATELET COUNT, AUTOMATED 148 10^3/uL (150-450); RED BLOOD COUNT 3.21 10^6/uL (4.30-6.10); WHITE BLOOD COUNT 6.8 10^3/uL (4.0-10.0)
[2022-02-27 06:27] LABS: BLOOD UREA NITROGEN 17 MG/DL (7-18); CALCIUM LEVEL 8.4 MG/DL (8.5-10.1); CARBON DIOXIDE LEVEL 30 MEQ/L (21-32); CHLORIDE LEVEL 98 MEQ/L (98-107); CREATININE FOR GFR 0.38 MG/DL (0.70-1.30); GLOMERULAR FILTRATION RATE > 60.0 (>60); GLUCOSE, FASTING 115 MG/DL (70-100); POTASSIUM SERUM 3.8 MEQ/L (3.5-5.1); SODIUM LEVEL 134 MEQ/L (136-145)
[2022-02-27 07:55] VITALS: BP 126/81
[2022-02-27] MEDS: NICOTINE 7 MG/24 HR TRANSDERMAL TD SCH (09:00)
[2022-02-27] MEDS: ENOXAPARIN 40MG/0.4ML SYRINGE (J1650 PER 10MG) SC SCH (09:00)
[2022-02-27] MEDS: GABAPENTIN 300 MG CAP PEG SCH (09:11)
[2022-02-27] MEDS: PANTOPRAZOLE 40MG TAB (PROTONIX) PO SCH (09:11)
[2022-02-27] MEDS: FOLIC ACID 1MG TAB PEG SCH (09:11)
[2022-02-27] MEDS: THIAMINE 100 MG TAB PEG SCH (09:11)
[2022-02-27] MEDS ORDERED: IPRA0.00 INH (10:23)
[2022-02-27] MEDS ORDERED: LEVO750T14 PO (10:23)
[2022-02-27] MEDS: LIDOCAINE VISCOUS 2% SOLN 15ML UDC PO SCH (10:31)
== END 2022-02-27 11:50 | disposition home health service (06) | DRG 137 ==
LOC: M ED 15:52 → M ED INP 22:09 → ENRESERV 02-23 16:14 → M PCU 02-23 17:07
PROVIDERS: ADMIT Family Medicine; ATTEND Family Medicine
DX: J15.0 Pneumonia due to Klebsiella pneumoniae (principal); E46 Unspecified protein-calorie malnutrition; R04.2 Hemoptysis; Z85.818 Personal history of malignant neoplasm of other sites of lip, oral cavity, and pharynx; Z92.21 Personal history of antineoplastic chemotherapy; I11.0 Hypertensive heart disease with heart failure; F32.A Depression, unspecified; F41.9 Anxiety disorder, unspecified; F17.210 Nicotine dependence, cigarettes, uncomplicated; Z92.3 Personal history of irradiation; K21.9 Gastro-esophageal reflux disease without esophagitis; Z20.822 Contact with and (suspected) exposure to COVID-19; Z79.899 Other long term (current) drug therapy; Z88.0 Allergy status to penicillin; Z88.1 Allergy status to other antibiotic agents; Z88.8 Allergy status to other drugs, medicaments and biological substances; F10.91 Alcohol use, unspecified, in remission; F11.91 Opioid use, unspecified, in remission; I51.9 Heart disease, unspecified

== ENCOUNTER 2022-03-04 09:23 | Emergency (ER) | payer OTHER ==
[~2022-03-04 09:23] MED LIST changes: +IPRA0.00 INH; +LEVO750T14 PO; +MAGIC MOUTHWASH PO
[2022-03-04 09:24] VITALS: BP 123/87
[2022-03-07] MEDS ORDERED: SYNT50TA PO (12:30)
== END 2022-03-04 11:14 | disposition home or self-care (01) ==
LOC: M ED 09:23
DX: K94.23 Gastrostomy malfunction (principal); C09.9 Malignant neoplasm of tonsil, unspecified; Z92.3 Personal history of irradiation; Z92.21 Personal history of antineoplastic chemotherapy; Z87.891 Personal history of nicotine dependence; Z88.0 Allergy status to penicillin; Z88.1 Allergy status to other antibiotic agents; Z88.6 Allergy status to analgesic agent; Z88.8 Allergy status to other drugs, medicaments and biological substances; Z79.899 Other long term (current) drug therapy; Z79.890 Hormone replacement therapy

== ENCOUNTER → 2022-03-07 | Outpatient (CLI) | payer OTHER ==
[~2022-03-07] MED LIST changes: +SYNT50TA PO
[2022-03-07 12:20] LABS: FREE T4 0.88 NG/DL (0.76-1.46); THYROID STIMULATING HORMONE 23.9 uIU/ML (0.358-3.740)
== END ==
LOC: M ONCR 09:43
PROVIDERS: ATTEND General Practice
DX: C10.8 Malignant neoplasm of overlapping sites of oropharynx (principal); F17.210 Nicotine dependence, cigarettes, uncomplicated; R11.11 Vomiting without nausea; R13.10 Dysphagia, unspecified; R59.0 Localized enlarged lymph nodes; R68.84 Jaw pain; R53.83 Other fatigue; Z88.6 Allergy status to analgesic agent; Z79.51 Long term (current) use of inhaled steroids; Z79.891 Long term (current) use of opiate analgesic; Z79.899 Other long term (current) drug therapy; Z92.3 Personal history of irradiation; Z92.21 Personal history of antineoplastic chemotherapy; Z88.1 Allergy status to other antibiotic agents; Z88.0 Allergy status to penicillin
CPT/HCPCS: 36415; 84439; 84443; G0463

== ENCOUNTER 2022-03-26 12:57 | Emergency (ER) | payer OTHER ==
[~2022-03-26] VITALS: Ht 170.2 cm; Wt 50.5 kg
[~2022-03-26 12:57] MED LIST changes: -DOXY-350 PO; +DOXY-444 PO; +SENN-80 PO
[2022-03-26] MEDS ORDERED: GI COCKTAIL 50ML BTL(HYOSCYAMINE/MAALOX/LIDOCAINE VISCOUS)(1:3:1) PO ONE (16:10)
[2022-03-26] MEDS ORDERED: OMEPRAZOLE SUSPENSION 20MG 10ML ORAL SYRINGE GT STA (16:35)
[2022-03-26 17:29] VITALS: BP 121/81
== END 2022-03-26 17:45 | disposition home or self-care (01) ==
LOC: M ED 12:57 → EDBD 12:57 → M ED 17:45
DX: K94.23 Gastrostomy malfunction (principal); I10 Essential (primary) hypertension; Z79.890 Hormone replacement therapy; Z79.899 Other long term (current) drug therapy; Z88.0 Allergy status to penicillin; Z88.8 Allergy status to other drugs, medicaments and biological substances; Z88.1 Allergy status to other antibiotic agents; Z86.69 Personal history of other diseases of the nervous system and sense organs; Z85.828 Personal history of other malignant neoplasm of skin

== ENCOUNTER → 2022-04-04 | Outpatient (POV) | payer OTHER ==
[~2022-04-04] VITALS: Ht 170.2 cm; Wt 50.0 kg
[~2022-04-04] MED LIST changes: +NEBU1EAC78 MC
[2022-04-04 07:45] VITALS: BP 130/87
== END ==
LOC: M IRPOV 07:35
PROVIDERS: ATTEND Radiology Diagnostic Radiology
DX: Z45.2 Encounter for adjustment and management of vascular access device (principal); Z88.0 Allergy status to penicillin; Z88.1 Allergy status to other antibiotic agents; Z88.6 Allergy status to analgesic agent; Z88.8 Allergy status to other drugs, medicaments and biological substances

== ENCOUNTER → 2022-04-06 | Outpatient (CLI) | payer OTHER ==
[~2022-04-06] VITALS: Ht 167.6 cm; Wt 50.0 kg
[2022-04-06 13:01] VITALS: BP 111/74
[2022-04-06 15:17] LABS: AMPHETAMINES URINE REFLEX NEGATIVE (NEGATIVE); BARBITURATES URINE REFLEX NEGATIVE (NEGATIVE); BENZODIAZEPINES URINE REFLEX PENDING CONFIRMATION (NEGATIVE); CANNABINOIDS URINE REFLEX NEGATIVE (NEGATIVE); COCAINE METABOLITE URINE REFLE NEGATIVE (NEGATIVE)
[2022-04-06 16:32] LABS: METHADONE URINE REFLEX PENDING CONFIRMATION (NEGATIVE); OPIATES URINE REFLEX PENDING CONFIRMATION (NEGATIVE); PHENCYCLIDINE URINE REFLEX NEGATIVE (NEGATIVE)
== END ==
LOC: M PAL 12:45
PROVIDERS: ATTEND Nurse Practitioner Adult Health
DX: C10.8 Malignant neoplasm of overlapping sites of oropharynx (principal); F17.210 Nicotine dependence, cigarettes, uncomplicated; G89.3 Neoplasm related pain (acute) (chronic); E87.6 Hypokalemia; L59.8 Other specified disorders of the skin and subcutaneous tissue related to radiation; F41.9 Anxiety disorder, unspecified; K29.70 Gastritis, unspecified, without bleeding; I10 Essential (primary) hypertension; R13.10 Dysphagia, unspecified; R06.02 Shortness of breath; R11.0 Nausea; R68.84 Jaw pain; Z66 Do not resuscitate; F10.10 Alcohol abuse, uncomplicated; Z92.21 Personal history of antineoplastic chemotherapy; Z92.3 Personal history of irradiation; Z51.5 Encounter for palliative care; Z79.899 Other long term (current) drug therapy; Z79.891 Long term (current) use of opiate analgesic; Z79.51 Long term (current) use of inhaled steroids; Z88.0 Allergy status to penicillin; Z88.1 Allergy status to other antibiotic agents; Z88.6 Allergy status to analgesic agent; Z88.8 Allergy status to other drugs, medicaments and biological substances
CPT/HCPCS: 80307; 99215; G0480